=== PATIENT | male | born 1955 | race Caucasian/White ===

== ENCOUNTER → 2017-10-09 10:36 | Outpatient (CLI) | payer OTHER, SELFPAY ==
[2017-10-09 11:37] LABS: AST(SGOT) 19 U/L (15-37); Alanine Aminotransfer ALT/SGPT 24 U/L (16-61); Albumin, Serum 3.6 g/dL (3.2-5.0); Alkaline Phosphatase 73 U/L (45-117); Bilirubin, Direct 0.14 mg/dL (0.00-0.30); Cholesterol 160 mg/dL (200); Globulin 3.5 g/dL (2.2-4.2); High Density Lipoprotein 61 mg/dL; Protein, Total 7.1 g/dL (6.4-8.2); Triglycerides 55 mg/dL; Very Low Density Lipoprotein 11 mg/dL (5-40)
== END ==
PROVIDERS: Family Provider Family Medicine; PCP Family Medicine; Visit Provider Physician Assistant Medical
DX: E78.5 Hyperlipidemia, unspecified (principal); Z79.899 Other long term (current) drug therapy
CPT/HCPCS: 36415; 80061; 80076

== ENCOUNTER → 2018-04-19 08:09 | Outpatient (CLI) | payer OTHER, SELFPAY ==
[2018-04-19 09:30] LABS: AST(SGOT) 12 U/L (15-37); Alanine Aminotransfer ALT/SGPT 23 U/L (16-61); Albumin, Serum 3.3 g/dL (3.2-5.0); Alkaline Phosphatase 67 U/L (45-117); Bilirubin, Direct 0.22 mg/dL (0.00-0.30); Cholesterol 156 mg/dL (200); Globulin 3.7 g/dL (2.2-4.2); High Density Lipoprotein 57 mg/dL; Triglycerides 71 mg/dL; Very Low Density Lipoprotein 14 mg/dL (5-40)
== END ==
PROVIDERS: Family Provider Family Medicine; PCP Family Medicine; Referring Provider Physician Assistant Medical; Visit Provider Physician Assistant Medical
DX: E78.5 Hyperlipidemia, unspecified (principal)
CPT/HCPCS: 36415; 80061; 80076

== ENCOUNTER → 2018-06-20 11:33 | Outpatient (CLI) | payer OTHER, SELFPAY ==
[2018-06-07 13:05] VITALS: BMI 44.6
--- NOTE | 2018-06-20 11:35 | STEWCON_ITS ---
Reason For Study: CAD Stress Results Protocol: Mazin Protocol Maximum Predicted HR: 158 bpm Target HR: 134 bpm % Maximum Predicted HR: 95 % DurationHeart Rate Stage (mm:ss) (bpm) BP Comment Baseline 71 118/70No Chest Pain; Definity 0.4 ML Given Mazin Protocol Stage I 3:00 131 132/74No Chest Pain; Mild Dyspnea Mazin Protocol Stage II 1:01 150 / No Chest Pain; Moderate Dyspnea Recovery 77 128/76No Chest Pain Stress Duration: 4:01 mm:ss Maximum Stress HR: 150 bpm METS: 7 Baseline Echocardiogram Findings The estimated ejection fraction is 65 %. Stress Echo Wall motion Data Resting WM Intermediate WM Stress WM Resting Wall Motion Wall Motion Stress No regional wall motion No regional wall motion abnormalities noted. abnormalities noted. EKG Data Normal intervals are noted. The patient exercised according to the regular Mazin protocol for a total duration of 4:01. The maximum heart rate attained was 193 beats per minute. This was 122% of maximum predicted heart rate. The patient exercised into stage 2 of the Mazin protocol. During stress, there were no ST or T wave changes noted to suggest ischemia. No clinical angina was noted. Interpretation Summary The study was technically difficult. Contrast injection was performed. The estimated ejection fraction is 65 %. Normal, adequate treadmill echocardiogram. Negative for ischemia by EKG and echocardiographic criteria. No anginal symptoms noted. Frequent PVCs and ventricular couplets during exercise and into recovery. Below average exercise capacity for age. Test terminated due to dyspnea. Decreased sensitivity due to poor echo windows requiring Definity enhancing agent. Final LVEF of 75%. No complications. Ordering Physician: Behzad Herman Referring Physician: Behzad Herman Performed By: Radha Jones, FREDO, RVT
--- OUTSIDE RECORDS SUMMARY | 2018-08-06 15:01 | XMS RPT_ITS ---
:1955 Author Organization OHIP Support Name Relationship Address Phone MARCIA LE Unavailable Unavailable + [place] [address] ANNA PADGETT Unavailable [address] + [place] [address] R Unavailable Unavailable Unavailable MARCIA LE Unavailable Unavailable + [facility] [address] ANNA PADGETT Unavailable [address] + [place] [address] UE Unavailable Unavailable Unavailable MARCIA LE Unavailable Unavailable + [place] [address] ANNA PADGETT Unavailable [address] + [place] [address] UE Unavailable Unavailable Unavailable MARCIA LE Unavailable . + [place] [address] ANNA PADGETT Unavailable [address] + [place] [address] R Unavailable Unavailable Unavailable MARCIA LE Unavailable Unavailable + [place] [address] ANNA PADGETT Unavailable [address] + [place] [address] R Unavailable Unavailable Unavailable ANNA PADGETT Unavailable [address] + [place] [address] R Unavailable Unavailable Unavailable ANNA PADGETT Unavailable [address] + [place] [address] R Unavailable Unavailable Unavailable ANNA PADGETT Unavailable [address] + [place] [address] R Unavailable Unavailable Unavailable ANNA PADGETT Unavailable [address] + [place] [address] R Unavailable Unavailable Unavailable Care Team Providers Name Role Phone Behzad Herman Attending Unavailable Behzad Herman Referring Unavailable Behzad Herman Attending Unavailable Behzad Herman Referring Unavailable Octavio, Jay Primary Care Unavailable Melissa Up Attending Unavailable Melissa Up Referring Unavailable Octavio, Jay Primary Care Unavailable Luan Marrero Attending Unavailable Renetta Borges Attending Unavailable Behzad Herman Attending Unavailable [place], Jay Referring Unavailable Octavio, Jay Primary Care Unavailable Melissa Up Attending Unavailable Melissa Up Referring Unavailable Octavio, Jay Primary Care Unavailable Behzad Herman Attending Unavailable [place], Jay Referring Unavailable Behzad Herman Attending Unavailable Behzad Herman Referring Unavailable [place], Jay Primary Care Unavailable PROBLEMS PROBLEMS DATE TYPE CONDITION / CODE ATTENDING STATUS SOURCE 06/20/2018 Unknown E78.5 - Behzad Herman Active [place] Hyperlipidemia, Community unspecified / Hospital E78.5(ICD-10) Repository 06/20/2018 Unknown I49.3 - Ventricular Behzad Herman Active [place] premature Community depolarization / Hospital I49.3(ICD-10) Repository 06/07/2018 Unknown I25.10 - Behzad Herman Active [place] Atherosclerotic heart [facility] disease [facility] coronary artery Repository without angina pectoris / I25.10(ICD-10) 10/09/2017 Unknown Z79.899 - Other long Suni Up term (current) drug Melissa [facility] therapy [facility] Z79.899(ICD-10) Repository PROCEDURES PROCEDURES No Procedure Records FoundRESULTS RESULTS LIVER PROFILE Collected: 07/24/2018 Status: F Source: [place] 8:42 AM [facility] REPOSITORY TYPE CODE TESTS RESULT OUT OF RANGE REFERENCE UNITS LAB L501.1500 6.4-8.2 g/dL Normal T PROT 7.3 LAB L501.1800 3.2-5.0 g/dL Normal ALB 3.7 LAB L501.1950 2.2-4.2 g/dL Normal GLOB 3.6 LAB L501.4100 15-37 U/L Normal AST 16 LAB L501.4305 45-117 U/L Normal ALK P 67 LAB L501.4405 16-61 U/L Normal ALT 28 LAB L501.4600 0.20-1.00 mg/dL High T BILI 1.10 LAB L501.4700 0.00-0.30 mg/dL Normal D BILI 0.29 Performed By: #### L500.3400, L500.4100 #### [facility] [address], [address] LIPID PROFILE Collected: 07/24/2018 Status: F Source: [place] 8:42 AM [facility] REPOSITORY TYPE CODE TESTS RESULT OUT OF RANGE REFERENCE UNITS LAB L501.4900 200 mg/dL Normal CHOL 134 Result Comment: <200 mg/dL Desirable 200-240 mg/dL Borderline >240 mg/dL High Risk LAB L501.5000 mg/dL Normal TRIG 73 Result Comment: The drugs N-Acetylcysteine and Metamizole may falsely depress this assay. Serum Triglycerides Reference Interval Normal <150 mg/dL Borderline high 150 - 199 mg/dL High 200 - 499 mg/dL Very High > or = 500 mg/dL LAB L501.6400 mg/dL Normal HDL 55 Result Comment: The drugs N-Acetylcysteine and Metamizole may falsely depress this assay. Reference Range HDL <40 mg/dL Low HDL Cholesterol HDL >or= 60 mg/dL High HDL Cholesterol LAB L501.6500 0-130 mg/dL Normal LDL 64 LAB L501.6600 5-40 mg/dL Normal VLDL 15 Performed By: #### L500.3400, L500.4100 #### [facility] [address] [place], [place], [address] STRESS TEST ECHO W/ Observed: 06/20/2018 Status: F Source: [place] CONTRAST 1:56 PM [facility] REPOSITORY [facility] Cardiovascular Services [address] [place] [id number] Stress Test Echo W/Contrast MR#: [id number] Acct: [id number] Name: KRYSTYNA PADGETT Rep #: [id number] : 1955 63 From: Behzad Herman MD Primary Care: Jay Cunningham DO Status: REG CLI Ordering Dr: Behzad Herman MD Sex: M C Reason For Study: CAD Stress Results Protocol: Mazin Protocol Maximum Predicted HR: 158 bpm Target HR: 134 bpm % Maximum Predicted HR: 95 % DurationHeart Rate Stage (mm:ss) (bpm) BP Comment Baseline 71 118/70No Chest Pain; Definity 0.4 ML Given Mazin Protocol Stage I 3:00 131 132/74No Chest Pain; Mild Dyspnea Mazin Protocol Stage II 1:01 150 / No Chest Pain; Moderate Dyspnea Recovery 77 128/76No Chest Pain Stress Duration: 4:01 mm:ss Maximum Stress HR: 150 bpm METS: 7 Baseline Echocardiogram Findings The estimated ejection fraction is 65 %. Stress Echo Wall motion Data Resting WM Intermediate WM Stress WM Resting Wall Motion Wall Motion Stress No regional wall motion No regional wall motion abnormalities noted. abnormalities noted. EKG Data Normal intervals are noted. The patient exercised according to the regular Mazin protocol for a total duration of 4:01. The maximum heart rate attained was 193 beats per minute. This was 122% of maximum predicted heart rate. The patient exercised into stage 2 of the Mazin protocol. During stress, there were no ST or T wave changes noted to suggest ischemia. No clinical angina was noted. Interpretation Summary The study was technically difficult. Contrast injection was performed. The estimated ejection fraction is 65 %. Normal, adequate treadmill echocardiogram. Negative for ischemia by EKG and echocardiographic criteria. No anginal symptoms noted. Frequent PVCs and ventricular couplets during exercise and into recovery. Below average exercise capacity for age. Test terminated due to dyspnea. Decreased sensitivity due to poor echo windows requiring Definity enhancing agent. Final LVEF of 75%. No complications. Ordering Physician: Behzad Herman Referring Physician: Behzad Herman Performed By: Radha Jones, FREDO, RVT 06/20/18 1356 Date Behzad Herman MD CC: Jay Cunningham DO; Behzad Herman MD Date Dictated: 06/20/18 1153 Date Transcribed: 06/20/18 1356 Proposal Lead Writer: Signed CARDIOLOGY VISIT Observed: 06/07/2018 Status: F Source: [place] REPORT 1:21 PM [facility] REPOSITORY [facility] [address] [place] [address] OFFICE VISIT Date of Service: 06/07/18 MR#: [id number] Acct: [id number] Name: KRYSTYNA PADGETT Rep #: [id number] : 1955 Provider: Behzad Herman MD Age/Sex: 62/M [place] [facility] [place] Status: Signed HPI HPI Chief Complaint: Routine f/u Details: Referring physician: Dr. Cunningham Mr. Padgett is a very pleasant 62-year-old nondiabetic morbidly obese gentleman, who used to weigh 340 pounds, lost about 80 pounds in the last year and a half, who has a history of hypertension, unknown cholesterol, no previous cardiac history. Prior to our last visit he stated that over the last couple of months he has had increasing fatigue, bradycardia, and positional lightheadedness and dizziness. He sought medical attention at [facility] on 09/23/15. EKG at that time demonstrated sinus bradycardia with PVCs. TSH and troponins were negative, and his clonidine was discontinued. Initially felt better after a few days off clonidine, could not tolerate Imdur in its place due to headaches, but then had reversion back to fatigue and lightheadedness. On further history patient had never had a stress test, previous catheterization, myocardial infarction, denies tobacco use, alcohol use, pkeg-dyr-twleiqy or herbal medications, or illicit drugs. He denies any exertional angina, chest pain or shortness of breath, denies any lower extremity edema. He's been on amlodipine and spironolactone for the better part of 2 years. He was switched to spironolactone after a reaction to lisinopril. Patient underwent a stress echocardiogram in 11/04/15 Which was technically difficult, had several PVCs and 4 beats of nonsustained V. tach, and had very poor exercise capacity. This gave way to a diagnostic coronary angiogram performed on 11/18/15. This demonstrated mild coronary artery disease and a statin was added. patient was advised to discontinue caffeinated products given his palpitations. Since our last visit with each other, the patient has discontinued all caffeinated products and feels much better. He denies any palpitations whatsoever since discontinuing caffeine. He denies any chest pain, angina. He is taking and tolerating his medicines well. He denies any myalgias with his new Zocor. patient does report that he has several episodes of nodding off sleeping during the day, is unaware whether he snores as he sleeps by himself, but does not wake up well rested. He has never been tested for MARIELENA. Unfortunately his insurance company would not pay for a sleep study. Patient declines a home O2 assessment at this time. Since her last visit the patient is doing fairly well and denies any chest pain, angina, shortness of breath, palpitations, or dyspnea on exertion. He has never gotten his sleep study. 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 He is compliant with his medications. He has completely discontinued all decaffeinated products. Is taking and tolerating his medicines well. In our office today's blood pressure is 115/80, pulse is 68 and regular. His physical exam is as below. Lipids as of 10/22/15 showed HDL of 58 and LDL 111. Repeat lipid profile As of 10/05/16 showed LDL of 75 and HDL of 61. His lipids as of 04/07/17 showed LDL of 71 and HDL of 64. His lipids as of 10/09/17 show an LDL of 88, and an HDL of 61 TSH was 0.79. His lipids as of 04/19/18 show an LDL of 85 and HDL of 57. Repeat lipids are pending. Intake Vital Signs06/07/18 Height 5 ft 7 in 06/07/18 Weight: 285 lb 06/07/18 Body Mass Index (BMI) 44.6 06/07/18 Blood Pressure 115/80 Intake Visit Reasons: 6 M FU [employer] Professor Required: No Is patient in pain?: No Allergies VICKIE Inhibitors Allergy (Severe, Verified 06/06/18 16:32) Angioedema Beta-Blockers (Beta-Adrenergic Bloc Allergy (Intermediate, Verified 06/06/18 16:32) HEART RATE DROPS VERY LOW clonidine Allergy (Verified 06/06/18 16:32) Other lisinopril Allergy (Verified 06/06/18 16:32) Angioedema Medications Amlodipine [Norvasc] 5 mg PO DAILY 09/23/15 [History Confirmed 06/06/18] Spironolact/Hydrochlorothiazid [Aldactazide 25-25 Tablet] 1 tab PO DAILY 09/23/15 [History Confirmed 06/06/18] Aspirin [Adult Low Dose Aspirin EC] 81 mg PO DAILY 11/18/15 [History Confirmed 06/06/18] simvastatin 40 mg tablet 40 mg PO QHS #90 tab 06/07/18 [Rx Confirmed 06/07/18] [facility] Medical History Obesity (Chronic) HLD (hyperlipidemia) (Chronic) PVCs (premature ventricular contractions) (Chronic) Atherosclerotic heart disease of [place] coronary artery without angina pectoris (Chronic) Sinus bradycardia (Chronic) Hypertension (Chronic) Bilateral kidney stones (Chronic) Hydronephrosis (Chronic) Surgical History History of arthroscopy of left knee (Chronic) History of back surgery (Chronic) History of left heart catheterization (Chronic 11/18/15) History of left knee surgery (Chronic) History of repair of left rotator cuff (Chronic) History of shoulder surgery (Chronic) Hx of hernia repair (Chronic) Family History Mother CAD (coronary artery disease) CHF, stent CHF (congestive heart failure) Father Valvular disease CHF (congestive heart failure) Social History Smoking Status: Never smoker alcohol intake: current ROS Const Const: Positive for other (Feels well); negative for fatigue, weakness, body ache, fever(s), headache(s), chills, frequent falls, night sweats, daytime sleepiness, difficulty sleeping, excessive sweating, weight gain, weight loss, increased appetite, poor appetite or anorexia Eyes Eyes: Negative for blind spots, loss of peripheral vision, transient loss of vision, blurry vision, change in vision, double vision, floaters, tunnel vision or other ENT ENT: Negative for headache(s), dizziness, hearing loss, tinnitus, Nosebleed/epistaxis, balance problems, post nasal drip, lip swelling, tongue swelling, bleeding gums, hoarseness, neck pain, dry mouth or other Cardio Chest Pain: No Palpitations: No Edema: Bilateral (Chronic lower leg edema) Muscle aches with walking: None Resp Respiratory: Negative for SOB with activity, SOB at rest, SOB orthopnea\SOB lying down, Cough, Coughing up blood/hemoptysis, chest congestion, pain on inspiration, snoring, stridor, wheezing, crackles, paroxysmal nocturnal dyspnea or other GI GI: Negative nausea, vomiting, heartburn, constipation, belching, bloating, cramping, vomiting blood/hematemesis, bright, red blood in stools, black,tarry stools, loose stools, Difficulty Swallowing or other : Negative for hematuria, frequent nighttime urination/ nocturia, erectile dysfunction or abnormal vaginal bleeding Musc Musc: Negative for balance problems, muscle aches/ myalgia, muscle weakness or joint pain Skin Skin: Negative redness, non-healing lesions, rash, unusual bruising, skin ulcer, wounds, jaundice or other Neuro Neuro: Negative for weakness, headache(s), frequent falls, blurry vision, double vision, dizziness, lightheadedness, near syncope, syncope, orthostatic symptoms, confusion, memory loss, restless legs, vertigo, seizures, lack of coordination or other Félix Hematologic/Lymphatic: Negative for easy bleeding, easy bruising, enlarged lymph nodes or other Endo Endo: Negative for fatigue, excessive sweating, cold intolerance, heat intolerance, flushing, increased thirst/drinking, increased hunger, hair loss, hair growth or other Psych Psych: Negative for anxiety, depression, thoughts of harming anyone, thoughts of harming yourself, visual hallucinations, panic attacks or audible hallucinations Allergy Allergy/Immunology: Negative for lip swelling, Negative for tongue swelling, Negative for rash, Negative for throat swelling, Negative for hives Cardiology Exam Const Appearance: cooperative, healthy appearing and no acute distress Nutritional Appearance: well nourished Orientation: alert, oriented x3 and oriented to person Head Head: normal to inspection, atraumatic and normocephalic Nose: external nose normal Face and Sinus: face symmetric Mouth: oral mucosae normal Eyes General: appearance normal, both eyes and all related structures Eyelids: eyelids normal Conjunctivae: conjunctivae normal Pupils: PERRL and normal by confrontation EOM: EOM intact bilaterally Neck Neck: normal visual inspection and full ROM Carotids: normal carotid upstroke Chest Chest inspection: normal inspection of the chest Auscultation: Bilateral: Clear to Auscultation Cardio Palpation: normal PMI Rate: regular rate Rhythm: regular rhythm Heart sounds: S1 normal and S2 normal GI GI: normal to inspection, no hepatosplenomegaly and bowel sounds present Neuro General: alert, oriented x3, awake, CN's II-XI intact bilaterally and moves all extremities Skin Skin: no rashes or lesions noted Extremities Pulses: Normal: Right Femoral Pulse, Left Femoral Pulse, Right Dorsalis Pedis Pulse, Left Dorsalis Pedis Pulse, Right Posterior Tibial Pulse, Left Posterior Tibial Pulse, Right Radial Pulse, Left Radial Pulse Lower Extremity Edema: None: Bilateral Psych Psychological: normal affect Assessment AND Plan 1. 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 Coronary artery disease: No exertional anginal symptoms at this time. 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 He is asymptomatic from a cardiac standpoint. 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 In the meantime we will continue baby aspirin and spironolactone/hydrochlorothiazide as well as amlodipine. 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 If however his stress test is abnormal, he may require repeat catheterization. Orders Orders: 2. HLD (hyperlipidemia) E78.5 Plan 2. Hyperlipidemia: His LDL and HDL cholesterol not quite at goal given his previously diagnosed nonobstructive coronary disease in 2016. Recommend increasing his Zocor to 40 mg p.o. nightly, and repeating his lipid profile in 6-week. 3. Return office in 6 months. This note was generated using a voice recognition system and there may be incorrect words, spelling or punctuation that were not noted when reviewing the office note prior to saving. Orders Orders: Plan Detail Other Orders Orders: Other Medications New: Discontinued: Follow Up +6m (Virgil) Coding Level of Care Code Off vis,est,level 3 Diagnoses Atherosclerotic heart disease of [place] coronary artery without angina pectoris I25.10 HLD (hyperlipidemia) E78.5 Coding Level of Care Code Off vis,est,level 3 Diagnoses Atherosclerotic heart disease of [place] coronary artery without angina pectoris I25.10 HLD (hyperlipidemia) E78.5 06/07/18 1321 <Electronically signed by Behzad Herman MD> Date Behzad Herman MD Cosigner Signature: Date (if applicable) CC: Jay Cunningham DO LIVER PROFILE Collected: 04/19/2018 Status: F Source: [place] 8:15 AM [facility] REPOSITORY TYPE CODE TESTS RESULT OUT OF RANGE REFERENCE UNITS LAB L501.1500 6.4-8.2 g/dL Normal T PROT 7.0 LAB L501.1800 3.2-5.0 g/dL Normal ALB 3.3 LAB L501.1950 2.2-4.2 g/dL Normal GLOB 3.7 LAB L501.4100 15-37 U/L Low AST 12 LAB L501.4305 45-117 U/L Normal ALK P 67 LAB L501.4405 16-61 U/L Normal ALT 23 LAB L501.4600 0.20-1.00 mg/dL Normal T BILI 0.90 LAB L501.4700 0.00-0.30 mg/dL Normal D BILI 0.22 Performed By: #### L500.3400, L500.4100 #### [facility] [address] [place], [address] LIPID PROFILE Collected: 04/19/2018 Status: F Source: [place] 8:15 AM [facility] REPOSITORY TYPE CODE TESTS RESULT OUT OF RANGE REFERENCE UNITS LAB L501.4900 200 mg/dL Normal CHOL 156 Result Comment: <200 mg/dL Desirable 200-240 mg/dL Borderline >240 mg/dL High Risk LAB L501.5000 mg/dL Normal TRIG 71 Result Comment: The drugs N-Acetylcysteine and Metamizole may falsely depress this assay. Serum Triglycerides Reference Interval Normal <150 mg/dL Borderline high 150 - 199 mg/dL High 200 - 499 mg/dL Very High > or = 500 mg/dL LAB L501.6400 mg/dL Normal HDL 57 Result Comment: The drugs N-Acetylcysteine and Metamizole may falsely depress this assay. Reference Range HDL <40 mg/dL Low HDL Cholesterol HDL >or= 60 mg/dL High HDL Cholesterol LAB L501.6500 0-130 mg/dL Normal LDL 85 LAB L501.6600 5-40 mg/dL Normal VLDL 14 Performed By: #### L500.3400, L500.4100 #### [facility] [address] [place], [address] CARDIOLOGY VISIT Observed: 12/07/2017 Status: F Source: [place] REPORT 1:41 PM [facility] REPOSITORY [facility] [address] [place] [address] OFFICE VISIT Date of Service: 12/07/17 MR#: [id number] Acct: [id number] Name: KRYSTYNA PADGETT Rep #: [id number] : 1955 Provider: Behzad Herman MD Age/Sex: 62/M [place] [facility] [place] Status: Signed HPI HPI Chief Complaint: Routine f/u Details: Referring physician: Dr. Cunningham Mr. Padgett is a very pleasant 62-year-old nondiabetic morbidly obese gentleman, who used to weigh 340 pounds, lost about 80 pounds in the last year and a half, who has a history of hypertension, unknown cholesterol, no previous cardiac history. Prior to our last visit he stated that over the last couple of months he has had increasing fatigue, bradycardia, and positional lightheadedness and dizziness. He sought medical attention at [facility] on 09/23/15. EKG at that time demonstrated sinus bradycardia with PVCs. TSH and troponins were negative, and his clonidine was discontinued. Initially felt better after a few days off clonidine, could not tolerate Imdur in its place due to headaches, but then had reversion back to fatigue and lightheadedness. On further history patient had never had a stress test, previous catheterization, myocardial infarction, denies tobacco use, alcohol use, tdmx-mlx-nmxknaex or herbal medications, or illicit drugs. He denies any exertional angina, chest pain or shortness of breath, denies any lower extremity edema. He's been on amlodipine and spironolactone for the better part of 2 years. He was switched to spironolactone after a reaction to lisinopril. Patient underwent a stress echocardiogram in 11/04/15 Which was technically difficult, had several PVCs and 4 beats of nonsustained V. tach, and had very poor exercise capacity. This gave way to a diagnostic coronary angiogram performed on 11/18/15. This demonstrated mild coronary artery disease and a statin was added. patient was advised to discontinue caffeinated products given his palpitations. Since our last visit with each other, the patient has discontinued all caffeinated products and feels much better. He denies any palpitations whatsoever since discontinuing caffeine. He denies anychest pain, angina. . He is taking and tolerating his medicines well. He denies any myalgias with his new Zocor. patient does report that he has several episodes of nodding off sleeping during the day, is unaware whether he snores as he sleeps by himself, but does not wake up well rested. He has never been tested for AMRIELENA. Unfortunately his insurance company would not pay for a sleep study. Patient declines a home O2 assessment at this time. Since her last visit he underwent meniscus surgery without difficulty. He has completely discontinued all decaffeinated products. Is taking and tolerating his medicines well. In our office today's blood pressure is 126/82, pulse is 64 and regular. His physical exam is as below. Lipids as of 10/22/15 showed HDL of 58 and LDL 111. Repeat lipid profile As of 10/05/16 showed LDL of 75 and HDL of 61. His lipids as of 04/07/17 showed LDL of 71 and HDL of 64. His lipids as of 10/09/17 show an LDL of 88, and an HDL of 61 TSH was 0.79. Intake Vital Signs12/07/17 Height 5 ft 7 in 12/07/17 Weight: 278 lb 12/07/17 Body Mass Index (BMI) 43.5 12/07/17 Blood Pressure 112/68 12/07/17 Respiratory Rate 18 12/07/17 Pulse Rate 66 Intake Visit Reasons: 6 M FU Allergies VICKIE Inhibitors Allergy (Severe, Verified 12/07/17 13:19) Angioedema Beta-Blockers (Beta-Adrenergic Bloc Allergy (Intermediate, Verified 12/07/17 13:19) HEART RATE DROPS VERY LOW clonidine Allergy (Verified 12/07/17 13:19) Other lisinopril Allergy (Verified 12/07/17 13:19) Angioedema Medications Amlodipine [Norvasc] 5 mg PO DAILY 09/23/15 [History Confirmed 12/07/17] Spironolact/Hydrochlorothiazid [Aldactazide 25-25 Tablet] 1 tab PO DAILY 09/23/15 [History Confirmed 12/07/17] Aspirin [Adult Low Dose Aspirin EC] 81 mg PO DAILY 11/18/15 [History Confirmed 12/07/17] simvastatin 20 mg tablet 20 mg PO DAILY #90 tab 12/07/17 [Rx Confirmed 12/07/17] [facility] Medical History Obesity (Chronic) HLD (hyperlipidemia) (Chronic) PVCs (premature ventricular contractions) (Chronic) Atherosclerotic heart disease of [place] coronary artery without angina pectoris (Chronic) Sinus bradycardia (Chronic) Hypertension (Chronic) Bilateral kidney stones (Chronic) History of left knee surgery (Chronic) Hydronephrosis (Chronic) Surgical History History of arthroscopy of left knee (Chronic) History of back surgery (Chronic) History of left heart catheterization (Chronic 11/18/15) History of repair of left rotator cuff (Chronic) History of shoulder surgery (Chronic) Hx of hernia repair (Chronic) Family History Mother CAD (coronary artery disease) CHF, stent CHF (congestive heart failure) Father Valvular disease CHF (congestive heart failure) Social History Smoking Status: Never smoker alcohol intake: current ROS Const Const: Negative for fatigue, weakness, difficulty sleeping, frequent falls, headache(s) or excessive sweating Eyes Eyes: Negative for loss of peripheral vision, transient loss of vision, blurry vision or double vision ENT ENT: Negative for headache(s), dizziness, Nosebleed/epistaxis or balance problems Cardio Chest Pain: No Palpitations: Yes (Monthly) feels like its: skipping, thumping Edema: None Muscle aches with walking: None Resp Respiratory: Negative for SOB with activity, SOB at rest, SOB orthopnea\SOB lying down or paroxysmal nocturnal dyspnea GI GI: Negative nausea or heartburn : Negative for hematuria Musc Musc: Negative for muscle aches/ myalgia, muscle weakness, joint pain or balance problems Skin Skin: Negative non-healing lesions, unusual bruising or rash Neuro Neuro: Negative for weakness, frequent falls, blurry vision, headache(s), dizziness, lightheadedness, orthostatic symptoms or double vision Félix Hematologic/Lymphatic: Negative for easy bruising Endo Endo: Negative for fatigue, excessive sweating or increased thirst/drinking Psych Psych: Negative for anxiety or depression Allergy Allergy/Immunology: Negative for hives, Negative for rash Cardiology Exam Const Appearance: cooperative, healthy appearing and no acute distress Nutritional Appearance: well nourished Orientation: alert, oriented x3 and oriented to person Head Head: normal to inspection, atraumatic and normocephalic Nose: external nose normal Face and Sinus: face symmetric Mouth: oral mucosae normal Eyes General: appearance normal, both eyes and all related structures Eyelids: eyelids normal Conjunctivae: conjunctivae normal Pupils: PERRL and normal by confrontation EOM: EOM intact bilaterally Neck Neck: normal visual inspection and full ROM Carotids: normal carotid upstroke Chest Chest inspection: normal inspection of the chest Auscultation: Bilateral: Clear to Auscultation Cardio Palpation: normal PMI Rate: regular rate Rhythm: regular rhythm Heart sounds: S1 normal and S2 normal GI GI: normal to inspection, no hepatosplenomegaly and bowel sounds present Neuro General: alert, oriented x3, awake, CN's II-XI intact bilaterally and moves all extremities Skin Skin: no rashes or lesions noted Extremities Pulses: Normal: Right Femoral Pulse, Left Femoral Pulse, Right Dorsalis Pedis Pulse, Left Dorsalis Pedis Pulse, Right Posterior Tibial Pulse, Left Posterior Tibial Pulse, Right Radial Pulse, Left Radial Pulse Lower Extremity Edema: None: Bilateral Psych Psychological: normal affect Assessment AND Plan 1. 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 Coronary artery disease: No exertional anginal symptoms at this time. No indication for any additional testing. The patient has had a rare occurrence of PVCs but nothing sustained. Recommend he continue his baby aspirin and amlodipine. His blood pressure is well-controlled. Continue spironolactone/hydrochlorothiazide. Patient declines sleep study at this time. 2. HLD (hyperlipidemia) E78.5 Plan 2. Hyperlipidemia: His LDL and HDL cholesterol are at goal for primary prevention. Continue Zocor. 3. Return office in 6 months. This note was generated using a voice recognition system and there may be incorrect words, spelling or punctuation that were not noted when reviewing the office note prior to saving. Plan Detail Other Medications New: Follow Up +6M ([place]) Coding Level of Care Code Off vis,est,level 3 Diagnoses Atherosclerotic heart disease of [place] coronary artery without angina pectoris I25.10 HLD (hyperlipidemia) E78.5 Coding Level of Care Code Off vis,est,level 3 Diagnoses Atherosclerotic heart disease of [place] coronary artery without angina pectoris I25.10 HLD (hyperlipidemia) E78.5 12/07/17 1341 <Electronically signed by Behzad Herman MD> Date Behzad Herman MD Cosigner Signature: Date (if applicable) CC: Jay Cunningham DO LIVER PROFILE Collected: 10/09/2017 Status: F Source: [place] 10:41 AM [facility] REPOSITORY Order Comment: Order Date: 04/13/17 Order Info: 0788-1 - *Hepatic Function Panel Order Info: [id number] - *Lipid Profile CC PCP Comments: 12 hours fasting, may have water. TYPE CODE TESTS RESULT OUT OF RANGE REFERENCE UNITS LAB L501.1500 6.4-8.2 g/dL Normal T PROT 7.1 LAB L501.1800 3.2-5.0 g/dL Normal ALB 3.6 LAB L501.1950 2.2-4.2 g/dL Normal GLOB 3.5 LAB L501.4100 15-37 U/L Normal AST 19 LAB L501.4305 45-117 U/L Normal ALK P 73 LAB L501.4405 16-61 U/L Normal ALT 24 Result Comment: Please note revised ALT reference range effective 2017. LAB L501.4600 0.20-1.00 mg/dL Normal T BILI 0.80 LAB L501.4700 0.00-0.30 mg/dL Normal D BILI 0.14 Performed By: #### L500.3400 #### [facility] [address] [place], [place], [address] LIPID PROFILE Collected: 10/09/2017 Status: F Source: [place] 10:41 AM [facility] REPOSITORY Order Comment: Order Date: 04/13/17 Order Info: [id number] - *Hepatic Function Panel Order Info: [id number] - *Lipid Profile CC PCP Comments: 12 hours fasting, may have water. TYPE CODE TESTS RESULT OUT OF RANGE REFERENCE UNITS LAB L501.4900 200 mg/dL Normal CHOL 160 Result Comment: <200 mg/dL Desirable 200-240 mg/dL Borderline >240 mg/dL High Risk LAB L501.5000 mg/dL Normal TRIG 55 Result Comment: The drugs N-Acetylcysteine and Metamizole may falsely depress this assay. Serum Triglycerides Reference Interval Normal <150 mg/dL Borderline high 150 - 199 mg/dL High 200 - 499 mg/dL Very High > or = 500 mg/dL LAB L501.6400 mg/dL Normal HDL 61 Result Comment: The drugs N-Acetylcysteine and Metamizole may falsely depress this assay. Reference Range HDL <40 mg/dL Low HDL Cholesterol HDL >or= 60 mg/dL High HDL Cholesterol LAB L501.6500 0-130 mg/dL Normal LDL 88 LAB L501.6600 5-40 mg/dL Normal VLDL 11 Performed By: #### L500.4100 #### [facility] [address] [place], [place], [address] ALLERGIES ALLERGIES DATE TYPE / CODE NAME / CODE REACTION SEVERITY SOURCE 06/06/2018 Drug VICKIE Angioedema SV [facility] Allergy/4160 Inhibitors/F Hospital 84269(SNOMED 639013544(RX Repository CT) NORM) 06/06/2018 Drug Beta-Ke HEART RATE DROPS MO [facility] Allergy/4160 s VERY LOW Hospital 70343(SNOMED (Beta-Adrene Repository CT) rgic Bloc/[id number] 298(RXNORM) 06/06/2018 Drug lisinopril/F Angioedema Unknown [facility] Allergy/4160 287665301( Hospital 40744(SNOMED NORM) Repository CT) 06/06/2018 Drug clonidine/F0 Other Unknown [place] [facility] Allergy/4160 46079856([facility] Hospital 98874(SNOMED ORM) Repository CT) ENCOUNTERS ENCOUNTERS ADMIT/DISCHARGE ACCOUNT ADMITTING ENCOUNTER LOCATION SOURCE NUMBER CLASS 07/24/2018 [id number] Ambulatory [place] 6 [facility] ing:LAB Repository 06/20/2018 [id number] Ambulatory BMSBuilding:W [place] 0 [facility] Repository 06/20/2018 [id number] Ambulatory [place] 6 [facility] ing:CVS Repository 06/07/2018/ [id number] Ambulatory BMSBuilding:B [place] 8 8 [facility] Repository 04/19/2018 [id number] Ambulatory [place] 7 [facility] ing:LAB Repository 12/07/2017/ [id number] Ambulatory BMSBuilding:B [place] 8 6 [facility] Repository 12/01/2017 [id number] Ambulatory BMSBuilding:B [place] 7 [facility] Repository 11/29/2017 [id number] Ambulatory BMSBuilding:B [place] 9 [facility] Repository 10/09/2017 [id number] Ambulatory [address] ing:LAB Repository PAYERS PAYERS ENCOUNTER GUARANTOR PAYER SUBSCRIBER SOURCE 07/24/2018 KRYSTYNA Mark [id number] Insurance:Jag [facility] [place] Number: [id number] [id number] Repository [address]Knr: 330) Date:7668-40-12EM [phone] () [id number] FRANKI [place]BR[place] [address]XN: 07/24/2018 Secondary NOT GIVENUNK [place] Insurance:SELF PAY [facility] Number: Effective Repository Date:2018-07-24 06/20/2018 KRYSTYNA Suarezoster [id number] Insurance:AETNAPolicy BISCHOFFDOB: Community ERA Number: [id number] [place] [id number] Repository [address]Cvl: (330) Date:7161-11-34XR [phone] ([place]) [place] [address]LC: 06/20/2018 Secondary NOT GIVENUNK [place] Insurance:SELF PAY [facility]: Effective Repository Date:2018-06-20 06/20/2018 KRYSTYNA Cooper Primary KRYSTYNA Mark [id number] Insurance:AETNAPolicy BISCHOFFDOB: [facility] ERA Number: [id number] [place] [id number] Repository [address]Rom: (330) Date:2005-31-84UP [phone] (HP) [id number] [address]BM: 06/20/2018 Secondary NOT GIVENUNK [place] Insurance:SELF PAY [facility] Number: Effective Repository Date:2018-06-07 06/07/2018 KRYSTYNA Cooper Primary KRYSTYNA Mark [id number] Insurance:AETNAPolicy BISCHOFFDOB: Community ERA Number: [id number] [place] [id number] Repository [address]Lii: (330) Date:0144-74-04NX [phone] (HP) 350[place]TS[place] [address]UV: 06/07/2018 Secondary NOT GIVENUNK [place] Insurance:SELF PAY [facility] Number: Effective Repository Date:2018-06-07 04/19/2018 KRYSTYNA Cooper Primary KRYSTYNA Mark [id number] Insurance:AETNAPolicy BISCHOFFDOB: Community [facility] Number: [id number] [place] [id number] Repository [address]Fwd: (330) Date:2068-00-00QA [phone] (HP) 680030RYFRANKI REYNOLDS [address]PP: 04/19/2018 Secondary NOT GIVENUNK [place] Insurance:SELF PAY [facility] Number: Effective Repository Date:2018-04-19 12/07/2017 KRYSTYNA L Primary KRYSTYNA Cooper [place] [id number] Insurance:AETNAPolicy BISCHOFFDOB: Community ERA Number: [id number] [place] [id number] Repository [address]Eks: (330) Date:6316-20-66HA [phone] (HP) [id number] [address]OQ: 12/07/2017 Secondary NOT GIVENUNK [place] Insurance:SELF PAY [facility] Number: Effective Repository Date:2017-06-21 12/01/2017 Krystyna L Primary Krystyna Cooper [place] [id number] Insurance:AETNAPolicy BischoffDOB: [facility] Number: [id number], [place] [id number] Repository [address]Kgm: (330) Date:6918-67-99PF [phone] () [id number] [address]CY: 12/01/2017 Secondary NOT GIVENUNK [place] Insurance:SELF PAY [facility] Number: Effective Repository Date:2017-12-01 11/29/2017 Krystyna L Primary Krystyna Cooper [place] [id number] Insurance:AETNAPolicy BischoffDOB: [facility] Era Number: [id number], [place] [id number] Repository [address]Wnb: (330) Date:6821-61-58LP [phone] () [id number] REYNOLDS [address]WX: 11/29/2017 Secondary NOT GIVENUNK [place] Insurance:SELF PAY [facility] Number: Effective Repository Date:2017-11-29 10/09/2017 Krystyna L Primary Krystyna Cooper [place] [id number] Insurance:Lenny ObrienB: [facility] Number: [id number], [place] [id number] Repository [address]Rsa: 330) Date:1871-94-35PJ [phone] () [id number] FRANKI MCBRIDE [address]OO: 10/09/2017 Secondary NOT GIVENUNK [place] Insurance:SELF PAY [facility] Number: Effective Repository Date:2017-10-09
== END ==
LOC: CVS 11:35
PROVIDERS: Family Provider Family Medicine; PCP Family Medicine; Referring Provider Internal Medicine Cardiovascular Disease; Visit Provider Internal Medicine Cardiovascular Disease
DX: I25.10 Atherosclerotic heart disease of native coronary artery without angina pectoris (principal)
CPT/HCPCS: 93017; 93350; J7120; Q9957; A4216; C8928

== ENCOUNTER → 2018-07-24 08:37 | Outpatient (CLI) | payer OTHER, SELFPAY ==
[2018-06-07 13:05] VITALS: BMI 44.6
[2018-07-24 10:18] LABS: AST(SGOT) 16 U/L (15-37); Alanine Aminotransfer ALT/SGPT 28 U/L (16-61); Albumin, Serum 3.7 g/dL (3.2-5.0); Alkaline Phosphatase 67 U/L (45-117); Bilirubin, Direct 0.29 mg/dL (0.00-0.30); Cholesterol 134 mg/dL (200); Globulin 3.6 g/dL (2.2-4.2); High Density Lipoprotein 55 mg/dL; Protein, Total 7.3 g/dL (6.4-8.2); Triglycerides 73 mg/dL; Very Low Density Lipoprotein 15 mg/dL (5-40)
== END ==
PROVIDERS: Family Provider Family Medicine; PCP Family Medicine; Referring Provider Internal Medicine Cardiovascular Disease; Visit Provider Internal Medicine Cardiovascular Disease
DX: E78.5 Hyperlipidemia, unspecified (principal); I25.10 Atherosclerotic heart disease of native coronary artery without angina pectoris
CPT/HCPCS: 36415; 80061; 80076

== ENCOUNTER 2018-12-21 11:11 | Emergency (ER) | payer OTHER, SELFPAY ==
[2018-12-04 13:02] VITALS: BMI 47.6
[2018-12-21 11:12] VITALS: BP 126/74; PULSE 64; RESP 18; TEMP 37; O2SAT 95; BMI 48.0
--- NOTE | 2018-12-21 11:26 | CT_ITS ---
STUDY: CT ABDOMEN AND PELVIS WITHOUT CONTRAST REASON FOR EXAM: Male, 63 years old. Right flank pain. Urinary bladder stone. RADIATION DOSAGE (If Supplied By Facility): CTDIvol = ( 17.58 ) mGy, DLP = ( 937.29 ) mGycm TECHNIQUE: Transaxial images were obtained from the dome of the diaphragm to the symphysis pubis without oral contrast, and without intravenous contrast. Sagittal and coronal images were reconstructed. Individualized dose optimization techniques were used for this CT. COMPARISON: February 22, 2017. FINDINGS: Lung bases: Elevated left hemidiaphragm. Dependent changes at the lung bases. Heart: Mild coronary artery disease. Liver: Hepatic steatosis. No focal hepatic lesions given noncontrast technique. Gallbladder/biliary ducts: Biliary sludge. No biliary ductal dilatation. No inflammatory changes. Pancreas: Moderate pancreatic atrophy. Spleen: Unremarkable. Adrenal glands: Unremarkable. Kidneys/ureters/bladder: 2 mm stone within the urinary bladder (axial image 166 series 1002). Mildly dilated right ureter with right perinephric and periureteral fat stranding. Nonobstructing right 3 mm renal stone (axial image 95 series 1002) within the right renal collecting system. Minimal left perinephric fat stranding. Normal left noncontrast renal parenchyma. Nondistended left ureter. Prostate: Unremarkable. Large bowel/small bowel: Colonic diverticulosis. No acute small bowel or large bowel process. Appendix: Unremarkable (axial image 113 series 1002). Gastroesophageal junction/stomach: Unremarkable. Retroperitoneum/lymph nodes: No intra-abdominal free air. No ascites. No pathologically enlarged lymph nodes. Vascular: Vascular calcifications. No aneurysm. Osseous structures: Calcific peritendinitis at the hamstring tendons. L5 bilateral pars defects with grade 2 spondylolisthesis. Congenitally small L5 vertebral body. Lumbar straightening. Neural foramina narrowing. Vomiting at L4-5 and L5-S1. No acute process. Subcutaneous/soft tissues: Fat and fluid containing right inguinal hernia without complication. Small fat-containing left inguinal hernia without complication. Paraspinal muscle atrophy, left greater than right. No acute process. CT/Abdomen/Pelvis without Cont IMPRESSION: 2 mm urinary bladder stone (suspected recently passed from the right) Mild right hydroureteronephrosis with right perinephric/perirenal fat stranding concerning for infection (correlate urinalysis) Nonobstructing right 3 mm renal collecting system stone Additional nonemergent findings, as above Electronically Signed: Dhaval Sue DO at 12:12 EDT Tel , Service support ,
[2018-12-21] MEDS: 0.9% Normal Saline 1,000 ML 125 ML IV (11:41)
[2018-12-21 11:42] LABS: Absolute Lymphocyte Count 0.67 X10^3/ul (0.83-4.51); Absolute Neutrophil Count 9.3 X10^3/uL (2.0-7.7); Basophil# 0.01 X10^3/uL; Basophil% 0.1 % (0-1); Eosinophil# 0.02 X10^3/uL; Eosinophils% 0.2 % (0-5); Hematocrit 42.1 % (40-54); Hemoglobin 14.1 g/dl (13.0-16.5); Lymphocyte # 0.67 X10^3/ul (4.0); Lymphocyte % 6.1 % (19-41); Mean Corp Hgb Conc 33.5 g/gl (32-36); Mean Corpuscular Hgb 29.4 pg (27.0-32.0); Mean Corpuscular Volume 87.9 fL (80-94); Mean Platelet Vol. 10.8 fl (6.2-12.0); Monocyte# 0.86 X10^3/uL; Monocyte% 7.9 % (0-10); Neutrophil # 9.31 X10^3/uL (2.7-7.7); Neutrophil % 85.4 % (47-70); Platelet Count 169 K/mm3 (150-450); RBC Distribution Width CV 13.2 % (11.6-14.6); RBC Distribution Width SD 42.5 fl (35.1-43.9); Red Blood Count 4.79 M/mm3 (4.6-6.2); White Blood Count 10.9 K/mm3 (4.4-11.0)
[2018-12-21 11:43] LABS: POSITIVE COUNT NO; POSITIVE DIFFERENTIAL NO; POSITIVE MORPHOLOGY NO
--- NOTE | 2018-12-21 11:51 | ED.VISSUMM ---
- ER Visit Summary Date of Service: 12/21/18 Chief Complaint: [Right flank pain] History of Present Illness: The patient is a 63 M presents the emergency department with flank pain that started around 3 PM yesterday. Patient states the pain, came on gradually but has severe episodes intermittently. Patient states around 8 PM last night pain became severe so he took a leftover Vicodin from prior kidney stones and then he vomited several times. Patient called the squad this morning to bring him in as he complained of severe pain. Currently rates the pain as a 2 out of 10 after receiving 100 mcg of fentanyl via EMS. She does have history of kidney stones and feels like he might be passing a stone. Patient states that he had a bus physical a week ago and it was noted that he had microscopic blood in his urine. He denies any dysuria. Denies urgency or frequency. Denies any fever.] Physical Examination: [HEENT-PERRLA, EOMI. Cranial nerves II through XII grossly intact. TMs clear. Mucous membranes moist. No adenopathy. Cardiovascular-regular rate and rhythm without murmur or ectopy Lungs-clear to auscultation, chest wall stable without crepitus or subcu emphysema Abdomen-normoactive bowel sounds, soft, nontender, no rebound or rigidity, no peritoneal signs. No pulsatile masses palpated. Back exam-patient has tenderness to palpation over the right costovertebral angle. No tenderness over the thoracic or lumbar spine itself. There is no erythema or warmth noted. Negative straight leg raises. Extremities-intact ?4, normal range of motion, normal pulses, atraumatic] Test Results: [CBC with differential obtained was normal. BMP obtained showed a sodium 138, potassium 3.4, chloride 105, CO2 30, glucose 102, BUN 27, creatinine 1.47. Urinalysis showed 15-20 RBCs but no signs of infection. CT flank showed a 2 mm stone within the bladder which suggest recently passed stone from the right as patient did have a mild right hydro-ureter. Patient also had some right-sided perinephric stranding and there was questioning of urinary tract infection however the urine was normal.] Emergency Department Course and Treatment: [Patient was started on normal saline while in the department having work-up performed. He continued to do well with the pain medicine he was given by EMS.] Treatment Plan: [Will be given urine strainers and a prescription for Zofran and [place]. Patient will be given referral to urology however he has an appointment already set up for January 07. Advised to return if worsening pain, fever, vomiting, or condition should worsen anyway.] Disposition: [Discharged home stable condition] Impression: [Recently passed kidney stone Right flank pain] This note was generated with [employer] dictation software. It may contain incorrect words, spelling, and punctuation that were not noted in review of the chart prior to signing ED Disposition - Plan for ED Patient: Referrals: Jay Cunningham DO [Primary Care Provider] -
[2018-12-21 11:57] LABS: Anion Gap 3 (5-15); BUN 27 mg/dL (7-18); BUN/Creat Ratio 18.4 RATIO (10-20); Calcium,Total 8.3 mg/dL (8.5-10.1); Chloride 105 mmol/L (98-107); Creatinine, Serum 1.47 mg/dL (0.70-1.30); EST Glomerular Filtration Rate 52 mL/min (>60); Est Glom Filt Rate - Afr Amer 62 mL/min (>60); Estimated Creatinine Clearance 47.02 ml/min; Glucose 102 mg/dL (74-106); Potassium 3.4 mmol/L (3.5-5.1); Sodium Level 138 mmol/L (136-145)
[2018-12-21 12:05] LABS: Bacteria 0 SEEN /hpf (None Seen); Mucous, Urine 0 SEEN /hpf (<or=2+); Squamous Epithelial Cells - UA 0 SEEN /hpf (0-5)
[2018-12-21 12:12] LABS: Color, Urine Yellow (Yellow); Glucose, Dipstick Normal (Normal); Ketone-Dipstick 15 mg/dl (Negative); Leukocyte Esterase-Dipstick 100 /ul (Negative); Nitrite-Dipstick Negative (Negative); Occult Blood-Urine 250 /ul (Negative); Protein-Dipstick Negative (Negative); Specific Gravity, Urine 1.015 (1.002-1.030); Urine Bilirubin Dipstick Negative (Negative); Urine Clarity Sl. Cloudy (Clear); Urine Urobilinogen Normal (Normal)
[2018-12-21 12:23] LABS: Red Blood Cells-Urine 10-25 SEEN /hpf (0-5); White Blood Cells 0-5 SEEN /hpf (0-5)
--- NOTE | 2018-12-21 12:32 | ED.DEP ---
ED Disposition - Plan for ED Patient: Instructions: ED Stone Renal Passed Prescriptions: Hydrocodone Bitart/Apap 5-325 [[place] 5MG-325MG] 1 tab PO Q4H PRN PRN 2 Days #10 tab PRN Reason: Pain Ondansetron [Zofran Odt] 4 mg PO Q8H PRN PRN #10 tab PRN Reason: Nausea Referrals: Gregory Osman MD [STAFF PHYSICIAN] - Jay Cunningham DO [Primary Care Provider] - 5-7 Days
[2018-12-21 12:35] VITALS: RESP 18
== END 2018-12-21 12:41 | disposition home or self-care (01) ==
LOC: ED 11:42
PROVIDERS: Emergency Provider Emergency Medicine; Family Provider Family Medicine; PCP Family Medicine
DX: N20.0 Calculus of kidney (principal); Z87.442 Personal history of urinary calculi; R31.9 Hematuria, unspecified; E78.00 Pure hypercholesterolemia, unspecified; I10 Essential (primary) hypertension
CPT/HCPCS: 74176; 80048; 81001; 85025; 99285; A4216

== ENCOUNTER 2018-12-23 14:44 | Emergency (ER) | payer OTHER, SELFPAY ==
[2018-12-23 14:45] VITALS: BP 125/62; PULSE 65; RESP 18; TEMP 36.7; O2SAT 92; BMI 48.0
--- NOTE | 2018-12-23 15:08 | ED.VISSUMM ---
- ER Visit Summary Date of Service: 12/23/18 Chief Complaint: Right flank pain History of Present Illness: The patient is a 63 M history of CAD, PR, hypertension and kidney stones. Patient has had 3 prior kidney stones he thinks he has a kidney stone now. Patient was seen in the emergency department on Monday was diagnosed with laying pain and they thought was a recently passed kidney stone. He did have a CT at that time and unremarkable labs. States he was doing well OxyContin grass yesterday. Today recurrent pain about 10 AM. Associated nausea. No vomiting. No diarrhea. No dysuria. No fever. Physical Examination: Vital signs are stable and afebrile. Initial blood pressure 125/62. Patient does not look septic or toxic. No distress. He was brought in by squad and treated with pain meds prior to to arrival. HEENT exam unremarkable. Lungs clear to auscultation bilaterally. Heart regular rhythm no murmur. Abdomen soft and nontender. Normal bowel sounds no peritoneal signs. Obese. Remedies moves all 4. Back nontender. Neurologically awake alert with no focal motor deficits. Test Results: CBC unremarkable white count 10. Chemistries normal normal creatinine of 1. UA positive for red blood cells but no other signs of infection. Consistent with an acute stone. Emergency Department Course and Treatment: Treated with IV fluids, Zofran and morphine. Patient had continued pain was given a second dose of morphine. Repeat exam is doing well at 1705 p.m. He is comfortable being discharged home. He denied discussed and he already has pain meds and nausea medications at home and did not need any other prescriptions. Treatment Plan: [place] for pain. Zofran for nausea. Strain urine for stone. Disposition: Discharge Impression: Right flank pain secondary to ureteral calculi History of kidney stones This note was generated with [employer] dictation software. It may contain incorrect words, spelling, and punctuation that were not noted in review of the chart prior to signing ED Disposition - Plan for ED Patient: Referrals: Jay Cunningham DO [Primary Care Provider] -
--- NOTE | 2018-12-23 15:14 | ED.DCSUM_ITS ---
- ER Visit Summary Date of Service: 12/23/18 Chief Complaint: Right flank pain History of Present Illness: The patient is a 63 M history of CAD, [place], hypertension and kidney stones. Patient has had 3 prior kidney stones he thinks he has a kidney stone now. Patient was seen in the emergency department on Fr iday was diagnosed with laying pain and they thought was a recently passed kidney stone. He did have a CT at that time and unremarkable labs. States he was doing well OxyContin grass yesterday. Today recurrent pain about 10 AM. Associated nausea. No vomiting. No diarrhea. No dysuria. No fever. Physical Examination: Vital signs are stable and afebrile. Initial blood p ressure 125/62. Patient does not look septic or toxic. No distress. He was brought in by squad and treated with pain meds prior to to arrival. HEENT exam unremarkable. Lungs clear to auscultation bilaterally. Heart regular rhythm no murmur. Abdomen soft and nontender. Normal bowel sounds no peritoneal signs. Obese. Remedies moves all 4. Back nontender. Neurologically awake alert with no focal motor deficits. Test Results: CBC unremarkable white count 10. Chemistries normal normal creatinine of 1. UA positive for red blood cells but no other signs of infectio n. Consistent with an acute stone. Emergency Department Course and Treatment: Treated with IV fluids, Zofran and morphine. Patient had continued pain was given a second dose of morphine. Repeat exam is doing well at 1705 p.m. He is comfortable being discharged home. He denied discussed and he already has pain meds and nausea medications at home and did not need any other prescriptions. Treatment Plan: [place] for pain. Zofran for nausea. Strain urine for stone. Disposition: Discharge Impression: Right flank pain secondary to ureteral calculi History of kidney stones This note was generated with [employer] dictation software. It may contain incorrect words, spelling, and punctuation that were not noted in review of the chart prior to signing ED Disposition - Plan for ED Patient: Referrals: Jay Cunningham DO [Primary Care Provider] -
[2018-12-23] MEDS: 0.9% Normal Saline 1,000 ML 1000 ML IV (15:15)
[2018-12-23] MEDS: Morphine 4 MG/ML Syringe 6 MG IV (15:15)
[2018-12-23] MEDS: Ondansetron 4 MG/2 ML Vial IV (15:15)
[2018-12-23 15:23] LABS: Absolute Lymphocyte Count 0.78 X10^3/ul (0.83-4.51); Absolute Neutrophil Count 9.3 X10^3/uL (2.0-7.7); Basophil# 0.01 X10^3/uL; Basophil% 0.1 % (0-1); Eosinophil# 0.06 X10^3/uL; Eosinophils% 0.6 % (0-5); Hematocrit 41.6 % (40-54); Hemoglobin 13.8 g/dl (13.0-16.5); Lymphocyte # 0.78 X10^3/ul (4.0); Lymphocyte % 7.2 % (19-41); Mean Corp Hgb Conc 33.2 g/gl (32-36); Mean Corpuscular Hgb 29.6 pg (27.0-32.0); Mean Corpuscular Volume 89.1 fL (80-94); Mean Platelet Vol. 11.3 fl (6.2-12.0); Monocyte# 0.63 X10^3/uL; Monocyte% 5.8 % (0-10); Neutrophil # 9.33 X10^3/uL (2.7-7.7); Neutrophil % 86.2 % (47-70); Platelet Count 187 K/mm3 (150-450); RBC Distribution Width CV 13.2 % (11.6-14.6); RBC Distribution Width SD 42.7 fl (35.1-43.9); Red Blood Count 4.67 M/mm3 (4.6-6.2); White Blood Count 10.8 K/mm3 (4.4-11.0)
[2018-12-23 15:24] LABS: POSITIVE COUNT NO; POSITIVE DIFFERENTIAL NO; POSITIVE MORPHOLOGY NO
[2018-12-23 15:25] LABS: Anion Gap 9 (5-15); BUN 23 mg/dL (7-18); BUN/Creat Ratio 21.7 RATIO (10-20); Calcium,Total 8.5 mg/dL (8.5-10.1); Chloride 104 mmol/L (98-107); Creatinine, Serum 1.06 mg/dL (0.70-1.30); EST Glomerular Filtration Rate 75 mL/min (>60); Est Glom Filt Rate - Afr Amer 91 mL/min (>60); Glucose 102 mg/dL (74-106); Potassium 3.6 mmol/L (3.5-5.1); Sodium Level 143 mmol/L (136-145)
[2018-12-23 16:23] LABS: Mucous, Urine 0 SEEN /hpf (<or=2+)
[2018-12-23 16:25] LABS: Color, Urine Amber (Yellow); Glucose, Dipstick Normal (Normal); Ketone-Dipstick 5 mg/dl (Negative); Leukocyte Esterase-Dipstick 25 /ul (Negative); Nitrite-Dipstick Negative (Negative); Occult Blood-Urine 250 /ul (Negative); Protein-Dipstick 30 mg/dl (Negative); Specific Gravity, Urine 1.025 (1.002-1.030); Urine Bilirubin Dipstick Negative (Negative); Urine Clarity Cloudy (Clear); Urine Urobilinogen 1 mg/dl (Normal)
[2018-12-23] MEDS: morphine 8 MG/ML Syringe 6 MG IV (16:48)
[2018-12-23 16:49] VITALS: BP 122/90; PULSE 72; RESP 15; O2SAT 98
[2018-12-23 16:49] LABS: Red Blood Cells-Urine 10-25 SEEN /hpf (0-5); Squamous Epithelial Cells - UA 0-5 SEEN /hpf (0-5); White Blood Cells 0-5 SEEN /hpf (0-5)
[2018-12-23 16:50] LABS: Amorphous Sediment 1+; Bacteria 1+ /hpf (None Seen)
--- NOTE | 2018-12-23 17:16 | ED.DEP ---
ED Disposition - Plan for ED Patient: Disposition: Home or Assisted Living Instructions: ED Stone Renal W [place] Referrals: Jay Cunningham DO [Primary Care Provider] - As Needed Additional Instructions: Plenty of fluids and rest. Strain your urine for passing stones. [place] for pain. Zofran for nausea. Follow-up with your doctor if not improving return to ER feeling worse.
[2018-12-23 17:22] VITALS: BP 135/96; PULSE 68; RESP 17; O2SAT 98
== END 2018-12-23 17:23 | disposition home or self-care (01) ==
PROVIDERS: Emergency Provider Emergency Medicine; Family Provider Family Medicine; PCP Family Medicine
DX: N20.1 Calculus of ureter (principal); I10 Essential (primary) hypertension; I25.10 Atherosclerotic heart disease of native coronary artery without angina pectoris; Z87.442 Personal history of urinary calculi; I25.2 Old myocardial infarction
CPT/HCPCS: 80048; 81001; 85025; 96361; 96374; 96375; 96376; 99285; J7030; A4216; J2405

== ENCOUNTER → 2019-05-28 09:14 | Outpatient (CLI) | payer OTHER, SELFPAY ==
[2019-05-28 10:53] LABS: PSA,Total- Diagnostic 0.95 ng/mL (0.0-4.0)
== END ==
PROVIDERS: Family Provider Family Medicine; PCP Family Medicine; Referring Provider Urology; Visit Provider Urology
DX: Z12.5 Encounter for screening for malignant neoplasm of prostate (principal)
CPT/HCPCS: 36415; 84153

== ENCOUNTER → 2019-07-01 07:50 | Outpatient (CLI) | payer OTHER, SELFPAY ==
[2019-06-27 13:59] VITALS: BMI 49.2
[2019-07-01 08:15] LABS: Hematocrit 45.6 % (40-54); Hemoglobin 14.9 g/dL (13.0-16.5); Mean Corp Hgb Conc 32.7 g/dL (32-36); Mean Corpuscular Hgb 29.5 pg (27.0-32.0); Mean Corpuscular Volume 90.3 fL (80-94); Mean Platelet Vol. 11.1 fl (6.2-12.0); Platelet Count 196 K/mm3 (150-450); RBC Distribution Width SD 42.6 fl (35.1-43.9); Red Blood Count 5.05 M/mm3 (4.6-6.2); White Blood Count 7.1 K/mm3 (4.4-11.0)
[2019-07-01 08:39] LABS: AST(SGOT) 17 U/L (15-37); Alanine Aminotransfer ALT/SGPT 24 U/L (16-61); Albumin, Serum 3.6 g/dL (3.2-5.0); Alkaline Phosphatase 68 U/L (45-117); Anion Gap 4 (5-15); BUN 20 mg/dL (7-18); BUN/Creat Ratio 21.2 RATIO (10-20); Bilirubin, Direct 0.21 mg/dL (0.00-0.30); Calcium,Total 9.1 mg/dL (8.5-10.1); Chloride 106 mmol/L (98-107); Cholesterol 165 mg/dL (200); Creatinine, Serum 0.94 mg/dL (0.70-1.30); EST Glomerular Filtration Rate 86 mL/min (>60); Est Glom Filt Rate - Afr Amer 104 mL/min (>60); Globulin 3.7 g/dL (2.2-4.2); Glucose 95 mg/dL (74-106); High Density Lipoprotein 68 mg/dL; Potassium 4.1 mmol/L (3.5-5.1); Protein, Total 7.3 g/dL (6.4-8.2); Sodium Level 143 mmol/L (136-145); Triglycerides 105 mg/dL; Very Low Density Lipoprotein 21 mg/dL (5-40)
== END ==
PROVIDERS: Family Provider Student in an Organized Health Care Education/Training Program; PCP Student in an Organized Health Care Education/Training Program; Referring Provider Internal Medicine Cardiovascular Disease; Visit Provider Internal Medicine Cardiovascular Disease
DX: I10 Essential (primary) hypertension (principal); E78.5 Hyperlipidemia, unspecified
CPT/HCPCS: 80053; 80061; 82248; 85027

== ENCOUNTER → 2019-07-17 12:24 | Outpatient (CLI) | payer OTHER, SELFPAY ==
[2019-06-27 13:59] VITALS: BMI 49.2
--- NOTE | 2019-07-17 12:26 | STEWCON_ITS ---
Stress Results Protocol: Dobutamine Stress Echo With Definity Maximum Predicted HR: 157 bpm Target HR: 133 bpm % Maximum Predicted HR: 85 % DurationHeart Rate Stage (mm:ss) (bpm) BP Dose Comment baseline 60 138/94 9ml total definity given stage 1 3:30 76 133/7810.00 stage 2 3:00 116 127/6720.00 stage 3 3:49 133 123/6830.00 recovery 93 135/63 Stress Duration: 10:19 mm:ss Maximum Stress HR: 133 bpm Baseline Echocardiogram Findings The estimated ejection fraction is 65 %. Stress Echo Wall motion Data Resting WM Intermediate WM Stress WM Resting Wall Motion Wall Motion Stress No regional wall motion No regional wall motion abnormalities noted. abnormalities noted. EKG Data The baseline ECG displays normal sinus rhythm. The patient was titrated from 10 mcg to a maximun of 30 mcg of dobutamine during the stress. The maximum heart rate attained was 148 beats per minute. This was 94% of maximum predicted heart rate. During dobutamine infusion, there were no ST or T wave changes noted to suggest ischemia. No clinical angina was noted. Interpretation Summary The estimated ejection fraction is 65 %. Normal, adequate, dobutamine echocardiogram. Negative for ischemia by EKG and echocardiographic criteria. No anginal symptoms noted. Rare PVCs noted. Appropriate blood pressure response to dobutamine. Test terminated due to the attainment of target heart rate. Final LVEF is 75%. Decrease sensitivity due to poor echo windows requiring Definity agent. The study was technically difficult. Contrast injection was performed. Ordering Physician: Behzad Herman Referring Physician: Behzad Herman Performed By: Radha Jones, FREDO, RVT
== END ==
PROVIDERS: Family Provider Student in an Organized Health Care Education/Training Program; PCP Student in an Organized Health Care Education/Training Program; Referring Provider Internal Medicine Cardiovascular Disease; Visit Provider Internal Medicine Cardiovascular Disease
DX: I10 Essential (primary) hypertension (principal); I25.10 Atherosclerotic heart disease of native coronary artery without angina pectoris; I49.3 Ventricular premature depolarization; E78.5 Hyperlipidemia, unspecified
CPT/HCPCS: 93017; 93350; J7040; Q9957; A4216; C8928

== ENCOUNTER → 2019-07-22 20:30 | Outpatient (CLI) | payer OTHER, SELFPAY ==
[2019-06-27 13:59] VITALS: BMI 49.2
== END ==
LOC: SL 20:30
PROVIDERS: Family Provider Student in an Organized Health Care Education/Training Program; PCP Student in an Organized Health Care Education/Training Program; Referring Provider Internal Medicine Cardiovascular Disease; Visit Provider Internal Medicine Cardiovascular Disease
DX: G47.10 Hypersomnia, unspecified (principal); E66.9 Obesity, unspecified; I49.3 Ventricular premature depolarization
CPT/HCPCS: 95810

== ENCOUNTER → 2019-08-28 20:31 | Outpatient (CLI) | payer OTHER, SELFPAY ==
[2019-08-06 09:40] VITALS: BMI 48.7
== END ==
LOC: SL 20:31
PROVIDERS: PCP Student in an Organized Health Care Education/Training Program; Visit Provider Nurse Practitioner Acute Care
DX: G47.33 Obstructive sleep apnea (adult) (pediatric) (principal)
CPT/HCPCS: 95811

== ENCOUNTER → 2019-10-29 11:46 | Outpatient (CLI) | payer OTHER, SELFPAY ==
[2019-08-06 09:40] VITALS: BMI 48.7
== END ==
PROVIDERS: PCP Student in an Organized Health Care Education/Training Program; Visit Provider Nurse Practitioner Acute Care
DX: Z46.89 Encounter for fitting and adjustment of other specified devices (principal)

== ENCOUNTER → 2019-10-30 09:09 | Outpatient (CLI) | payer OTHER, SELFPAY ==
[2019-08-06 09:40] VITALS: BMI 48.7
== END ==
PROVIDERS: PCP Student in an Organized Health Care Education/Training Program; Visit Provider Nurse Practitioner Acute Care
DX: Z46.89 Encounter for fitting and adjustment of other specified devices (principal)

== ENCOUNTER → 2020-01-07 07:42 | Outpatient (CLI) | payer OTHER, SELFPAY ==
[2019-12-03 08:02] VITALS: BMI 49.7
[2020-01-07 08:11] LABS: Hematocrit 42.4 % (40-54); Hemoglobin 13.4 g/dL (13.0-16.5); Mean Corp Hgb Conc 31.6 g/dL (32-36); Mean Corpuscular Hgb 28.5 pg (27.0-32.0); Mean Corpuscular Volume 90.2 fL (80-94); Mean Platelet Vol. 10.8 fl (6.2-12.0); Platelet Count 219 K/mm3 (150-450); RBC Distribution Width CV 12.8 % (11.6-14.6); RBC Distribution Width SD 42.1 fl (35.1-43.9); White Blood Count 6.8 K/mm3 (4.4-11.0)
[2020-01-07 08:39] LABS: ALB/GLOB Ratio 0.8 RATIO (0.9-2.4); AST(SGOT) 14 U/L (15-37); Alanine Aminotransfer ALT/SGPT 28 U/L (16-61); Albumin, Serum 3.3 g/dL (3.2-5.0); Alkaline Phosphatase 62 U/L (45-117); Anion Gap 5 (5-15); BUN 23 mg/dL (7-18); BUN/Creat Ratio 26.5 RATIO (10-20); Bilirubin, Direct 0.23 mg/dL (0.00-0.30); Calcium,Total 8.7 mg/dL (8.5-10.1); Chloride 101 mmol/L (98-107); Cholesterol 128 mg/dL (200); Creatinine, Serum 0.87 mg/dL (0.70-1.30); EST Glomerular Filtration Rate 94 mL/min (>60); Est Glom Filt Rate - Afr Amer 114 mL/min (>60); Globulin 3.9 g/dL (2.2-4.2); Glucose 93 mg/dL (74-106); High Density Lipoprotein 52 mg/dL; Potassium 3.7 mmol/L (3.5-5.1); Protein, Total 7.2 g/dL (6.4-8.2); Sodium Level 138 mmol/L (136-145); Triglycerides 54 mg/dL; Uric Acid 8.6 mg/dL (3.5-7.2); Very Low Density Lipoprotein 11 mg/dL (5-40)
== END ==
PROVIDERS: Nurse Practitioner Family; PCP Student in an Organized Health Care Education/Training Program; Referring Provider Student in an Organized Health Care Education/Training Program; Visit Provider Student in an Organized Health Care Education/Training Program
DX: I10 Essential (primary) hypertension (principal); E78.5 Hyperlipidemia, unspecified; M10.9 Gout, unspecified
CPT/HCPCS: 36415; 80053; 80061; 82248; 84550; 85027

== ENCOUNTER → 2020-05-15 09:33 | Outpatient (CLI) | payer OTHER, SELFPAY ==
[2019-12-03 08:02] VITALS: BMI 49.7
[2020-05-15 10:30] LABS: Hematocrit 42.6 % (40-54); Hemoglobin 13.6 g/dL (13.0-16.5); Mean Corp Hgb Conc 31.9 g/dL (32-36); Mean Corpuscular Hgb 28.7 pg (27.0-32.0); Mean Corpuscular Volume 89.9 fL (80-94); Mean Platelet Vol. 11.4 fl (6.2-12.0); Platelet Count 215 K/mm3 (150-450); RBC Distribution Width CV 13.5 % (11.6-14.6); RBC Distribution Width SD 44.1 fl (35.1-43.9); Red Blood Count 4.74 M/mm3 (4.6-6.2)
[2020-05-15 11:13] LABS: ALB/GLOB Ratio 0.9 RATIO (0.9-2.4); AST(SGOT) 15 U/L (15-37); Alanine Aminotransfer ALT/SGPT 23 U/L (16-61); Albumin, Serum 3.5 g/dL (3.2-5.0); Alkaline Phosphatase 73 U/L (45-117); Anion Gap 4 (5-15); BUN 21 mg/dL (7-18); BUN/Creat Ratio 24.1 RATIO (10-20); Calcium,Total 9.1 mg/dL (8.5-10.1); Chloride 105 mmol/L (98-107); Cholesterol 129 mg/dL (200); Creatinine, Serum 0.87 mg/dL (0.70-1.30); EST Glomerular Filtration Rate 94 mL/min (>60); Est Glom Filt Rate - Afr Amer 113 mL/min (>60); Globulin 3.9 g/dL (2.2-4.2); Glucose 87 mg/dL (74-106); High Density Lipoprotein 65 mg/dL; Lipase 66 U/L (73-393); Potassium 3.5 mmol/L (3.5-5.1); Protein, Total 7.4 g/dL (6.4-8.2); Sodium Level 140 mmol/L (136-145); Triglycerides 53 mg/dL; Uric Acid 6.4 mg/dL (3.5-7.2); Very Low Density Lipoprotein 11 mg/dL (5-40)
[2020-05-15 12:07] LABS: Hepatitis C Antibody Non-Reactive (Nonreactive)
== END ==
PROVIDERS: PCP Student in an Organized Health Care Education/Training Program; Referring Provider Student in an Organized Health Care Education/Training Program; Visit Provider Student in an Organized Health Care Education/Training Program
DX: M10.9 Gout, unspecified (principal); Z11.59 Encounter for screening for other viral diseases
CPT/HCPCS: 36415; 80053; 80061; 83690; 84550; 85027; 86803

== ENCOUNTER → 2020-12-09 08:19 | Outpatient (CLI) | payer OTHER, SELFPAY ==
[2020-05-20 10:15] VITALS: BMI 47.7
[2020-12-04 06:14] VITALS: BMI 48.2
[2020-12-09 08:43] LABS: Hematocrit 43.8 % (40-54); Hemoglobin 14.3 g/dL (13.0-16.5); Mean Corp Hgb Conc 32.6 g/dL (32-36); Mean Corpuscular Hgb 29.2 pg (27.0-32.0); Mean Corpuscular Volume 89.6 fL (80-94); Mean Platelet Vol. 10.3 fl (6.2-12.0); Platelet Count 233 K/mm3 (150-450); RBC Distribution Width CV 13.2 % (11.6-14.6); RBC Distribution Width SD 43.6 fl (35.1-43.9); Red Blood Count 4.89 M/mm3 (4.6-6.2); White Blood Count 5.8 K/mm3 (4.4-11.0)
[2020-12-09 09:12] LABS: ALB/GLOB Ratio 0.8 RATIO (0.9-2.4); AST(SGOT) 19 U/L (15-37); Alanine Aminotransfer ALT/SGPT 33 U/L (16-61); Albumin, Serum 3.3 g/dL (3.2-5.0); Alkaline Phosphatase 68 U/L (45-117); Anion Gap 4 (5-15); BUN 25 mg/dL (7-18); BUN/Creat Ratio 27.9 RATIO (10-20); Bilirubin, Direct 0.17 mg/dL (0.00-0.30); Chloride 104 mmol/L (98-107); Cholesterol 218 mg/dL (200); EST Glomerular Filtration Rate 91 mL/min (>60); Est Glom Filt Rate - Afr Amer 110 mL/min (>60); Globulin 3.9 g/dL (2.2-4.2); Glucose 95 mg/dL (74-106); High Density Lipoprotein 57 mg/dL; PSA,Total - Annual Screen 7.71 ng/mL (0.00-4.00); Potassium 3.8 mmol/L (3.5-5.1); Protein, Total 7.2 g/dL (6.4-8.2); Sodium Level 138 mmol/L (136-145); Triglycerides 82 mg/dL; Uric Acid 7.1 mg/dL (3.5-7.2); Very Low Density Lipoprotein 16 mg/dL (5-40)
[2020-12-09 09:12] LABS: Microalbumin,Random Urine 11.7 mg/L (NO RANGE EST.); Microalbumin:Creatinine Ratio 7.6 mg/g CRE (<30 mg/g CRE)
== END ==
PROVIDERS: Nurse Practitioner Family; PCP Student in an Organized Health Care Education/Training Program; Visit Provider Student in an Organized Health Care Education/Training Program
DX: I10 Essential (primary) hypertension (principal); Z12.5 Encounter for screening for malignant neoplasm of prostate; M10.9 Gout, unspecified
CPT/HCPCS: 36415; 80053; 80061; 82043; 82248; 82570; 84153; 84550; 85027; G0103

== ENCOUNTER → 2021-01-12 09:15 | Outpatient (CLI) | payer OTHER, SELFPAY ==
[2021-01-06 14:33] VITALS: BMI 48.3
[2021-01-12 12:08] LABS: PSA,Total- Diagnostic 1.63 ng/mL (0.0-4.0)
== END ==
PROVIDERS: PCP Student in an Organized Health Care Education/Training Program; Referring Provider Nurse Practitioner Adult Health; Visit Provider Nurse Practitioner Adult Health
DX: R97.20 Elevated prostate specific antigen [PSA] (principal)
CPT/HCPCS: 36415; 84153

== ENCOUNTER → 2021-01-26 06:03 | Outpatient (CLI) | payer OTHER, SELFPAY ==
[2021-01-06 14:33] VITALS: BMI 48.3
--- NOTE | 2021-01-26 07:43 | STRESSREP ---
Stress Test Report Date: 01-26-2021 Procedure: Exercise tolerance test/imaging study Indications: Shortness of breath/dyspnea on exertion; CAD; bradycardia; PVCs Consent: Per the patient Procedure: The patient exercised on a Mazin protocol for 4 minutes and 15 seconds completing Stage 1 and 1 minute and 15 seconds of Stage II achieving a peak heart rate of 134 bpm (85% predicted maximal heart rate) with a peak blood pressure 134/76 mmHg and a peak MET capacity of 6 METs. The baseline ECG demonstrated sinus bradycardia. The peak exercise ECG demonstrated no obvious ECG changes. There was a rare PVC and an isolated ventricular couplet during exercise. The functional capacity was considered decreased. There was no complaint of chest discomfort during exercise or recovery. The examination was discontinued secondary to dyspnea. Impression: 1. Technically adequate (percent predicted maximal heart rate greater than 85%) exercise tolerance test 2. Peak exercise ECG with no obvious ECG changes 3. There was a rare PVC and an isolated ventricular couplet during exercise 4. Nuclear images pending Myocardial perfusion imaging study: Technique: The patient was injected with 14.9 mCi of technetium 99m Cardiolite and subsequently rest SPECT Cardiolite nuclear imaging was obtained in the horizontal long, vertical long, and short axis views. The patient exercised on a Mazin protocol for 4 minutes and 15 seconds completing Stage 1 and 1 minute and 15 seconds of Stage II achieving a peak heart rate of 134 bpm (85% predicted maximal heart rate) with a peak blood pressure 134/76 mmHg and a peak MET capacity of 6 METs. The patient was injected with 44.8 mCi of technetium 99m Cardiolite and subsequently stress SPECT Cardiolite nuclear imaging was obtained in the horizontal long, vertical long, and short axis views. A gated Cardiolite study at peak stress was obtained. Interpretation: Rest and stress SPECT Cardiolite nuclear imaging status post realignment, normalization, and attenuation correction, demonstrates the appearance of body motion during image acquisition and at rest the appearance of an area of diminished tracer uptake near the distal lateral/lateral apical segments which appears to be improved and were normalized following stress. There is end systolic thickening and brightening. The gated Cardiolite study demonstrates myocardial thickening and inward wall motion. The reported LVEF is 63%. Impression: 1. Rest and stress SPECT Cardiolite nuclear imaging demonstrate the appearance of body motion during image acquisition and the appearance myocardial perfusion changes at rest which appear to be improved and/or normalize following stress compatible with body motion during image acquisition and shifting soft tissue attenuation/artifact with no myocardial perfusion changes considered diagnostic for associated stress-induced myocardial ischemia. 2. The gated Cardiolite study reports an LVEF of 63%. This note was generated with [employer] software. It may contain incorrect words, spelling, and punctuation that were not noted in checking the note before signing.
== END ==
PROVIDERS: PCP Student in an Organized Health Care Education/Training Program; Referring Provider Internal Medicine Cardiovascular Disease; Visit Provider Internal Medicine Cardiovascular Disease
DX: R06.00 Dyspnea, unspecified (principal); I25.10 Atherosclerotic heart disease of native coronary artery without angina pectoris; R00.1 Bradycardia, unspecified; E78.5 Hyperlipidemia, unspecified; I10 Essential (primary) hypertension
CPT/HCPCS: 78452; 93017; A9500; A4216; J2785

== ENCOUNTER → 2021-04-08 06:51 | Outpatient (CLI) | payer OTHER, SELFPAY ==
[2021-04-08 07:43] LABS: AST(SGOT) 17 U/L (15-37); Alanine Aminotransfer ALT/SGPT 29 U/L (16-61); Albumin, Serum 3.2 g/dL (3.2-5.0); Alkaline Phosphatase 67 U/L (45-117); Bilirubin, Direct 0.24 mg/dL (0.00-0.30); Cholesterol 157 mg/dL (200); Globulin 3.7 g/dL (2.2-4.2); High Density Lipoprotein 59 mg/dL; Protein, Total 6.9 g/dL (6.4-8.2); Triglycerides 70 mg/dL; Very Low Density Lipoprotein 14 mg/dL (5-40)
== END ==
PROVIDERS: PCP Student in an Organized Health Care Education/Training Program; Referring Provider Internal Medicine Cardiovascular Disease; Visit Provider Internal Medicine Cardiovascular Disease
DX: E78.00 Pure hypercholesterolemia, unspecified (principal)
CPT/HCPCS: 36415; 80061; 80076

== ENCOUNTER → 2021-06-16 07:20 | Outpatient (CLI) | payer MEDICARE, SELFPAY ==
[2021-06-16 08:52] LABS: Hemoglobin 14.6 g/dL (13.0-16.5); Mean Corp Hgb Conc 33.2 g/dL (32-36); Mean Corpuscular Hgb 29.1 pg (27.0-32.0); Mean Corpuscular Volume 87.8 fL (80-94); Platelet Count 232 K/mm3 (150-450); RBC Distribution Width CV 13.2 % (11.6-14.6); RBC Distribution Width SD 42.7 fl (35.1-43.9); Red Blood Count 5.01 M/mm3 (4.6-6.2); White Blood Count 6.5 K/mm3 (4.4-11.0)
[2021-06-16 09:19] LABS: ALB/GLOB Ratio 0.8 RATIO (0.9-2.4); AST(SGOT) 17 U/L (15-37); Alanine Aminotransfer ALT/SGPT 30 U/L (16-61); Albumin, Serum 3.3 g/dL (3.2-5.0); Alkaline Phosphatase 67 U/L (45-117); Anion Gap 8 (5-15); BUN 27 mg/dL (7-18); Bilirubin, Direct 0.17 mg/dL (0.00-0.30); Calcium,Total 9.1 mg/dL (8.5-10.1); Chloride 103 mmol/L (98-107); Creatinine, Serum 0.82 mg/dL (0.70-1.30); EST Glomerular Filtration Rate 101 mL/min (>60); Est Glom Filt Rate - Afr Amer 122 mL/min (>60); Globulin 3.9 g/dL (2.2-4.2); Glucose 89 mg/dL (74-106); Potassium 3.9 mmol/L (3.5-5.1); Protein, Total 7.2 g/dL (6.4-8.2); Sodium Level 140 mmol/L (136-145); Uric Acid 6.5 mg/dL (3.5-7.2)
== END ==
PROVIDERS: PCP Student in an Organized Health Care Education/Training Program; Referring Provider Student in an Organized Health Care Education/Training Program; Visit Provider Student in an Organized Health Care Education/Training Program
DX: M10.9 Gout, unspecified (principal)
CPT/HCPCS: 36415; 80053; 82248; 84550; 85027

== ENCOUNTER 2021-10-11 10:50 | Outpatient (CLI) | payer MEDICARE, SELFPAY ==
--- NOTE | 2021-10-11 10:53 | ART_ITS ---
Reason For Study: Pain in legs Procedure A bilateral lower extremity continuous wave Doppler with analog waveform analysis and ankle brachial indexes. Left Segmental Pressures Left brachial= 128mmHg. Left posterior tibial artery = 174mmHg. Left dorsalis pedis artery = 156mmHg. Left digit = 118 mmHg. The left dorsalis pedis waveforms are triphasic. The left posterior tibial artery waveforms are triphasic. Right Segmental Pressures Right brachial= 121mmHg. Right posterior tibial artery = 164mmHg. Right dorsalis pedis artery = 152mmHg. Right digit = 132 mmHg. The right dorsalis pedis waveforms are triphasic. The right posterior tibial artery waveforms are triphasic. Indices The right ankle brachial index by the dorsalis pedis is 1.19. The right ankle brachial index by the posterior tibial artery is 1.28. The right digital-brachial index is 1.03. The left ankle brachial index by the dorsalis pedis is 1.22. The left ankle brachial index by the posterior tibial artery is 1.36. The left digital-brachial index is 0.92. VL/Ankle Brachial Index Interpretation Summary Bilateral lower extremities no evidence of significant occlusive disease at res t with triphasic flow and an MEÑO 1.281.36. Ordering Physician: Melissa Up Referring Physician: Aly Cornejo Performed By: Rosi Kim RVT
== END 2021-10-11 23:59 | disposition home or self-care (01) ==
LOC: CVS 10:51
PROVIDERS: PCP Student in an Organized Health Care Education/Training Program; Referring Provider Physician Assistant Medical; Visit Provider Physician Assistant Medical
DX: R09.89 Other specified symptoms and signs involving the circulatory and respiratory systems (principal)
CPT/HCPCS: 93922

== ENCOUNTER 2021-11-24 11:00 | Outpatient (RCR) | payer MEDICARE, SELFPAY ==
--- NOTE | 2021-10-27 16:59 | HP.PTEVAL ---
Patient's Visit Information KRYSTYNA PADGETT is a 66 year old M referred to Physical Therapy by Dr. Aly Cornejo, with a diagnosis of LUMBAR DDD/CLAUDICATION. Date of Evaluation: 10/27/21 Physical Therapist: Krystyna Munoz, PT, Cert MDT, OCS - Visit Plan Frequency: 2x /Week Duration: 4 Weeks Plan: PT INTERVETIONS LUMBAR ROM -FLEXION ,POSTURAL EX'S ,DLS ,POSTURAL EX'S AND LE FEXABILITY - Subjective This 66 y/o male presents to physical therapy with leg pain. Patient has had leg pain since ~ end of Jun. Patient has h/o lumbar surgery with lumbar discectomy ~ 23 years ago. Eventually pain has been worsening with calf pain bilateral mainly during standing. Currently in left lateral hip . Patient had US to look at circulation which was negative for intermittent cloudification. Plan to do nerve conduction in December. Aggravating factors standing ~ 10mins . Alleviating factors movements ,walking and sitting . Patient had no diagnostics. Denies paresthesia/tingling. No back pain today Coughing/sneezing. Bowel/bladder-. Patient sleeping okay. Patient sleeps with sleep apnea. Patient has h/o RTC bilateral, left arthroscopic ,heart blockage .Patient pain affects QOL and function. 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 GAIT: reciprocal pattern lateral sway. MMT: quads/hams/hip/ankle 4/5. FLEXABLITY: hamstrings mod tight. SYMMETRIES: Align. PALAPTION: unremarkable. NEURO: denies paresthesia/tingling ,reflexes L3-4,L4-5,L5-S1 1/3 - Special Tests L/S Slump test left side: Negative L/S Slump test right side: Negative L/S Left Straight Leg Raise: Negative L/S Right Straight Leg Raise: Negative Lumbar Standing: Flexion - Mechanical Response: No effect Lumbar Standing: Flexion - Symptoms During Testing: No effect Lumbar Standing: Flexion - Symptoms After Testing: No effect Lumbar Standing: Extension - Mechanical Response: No effect Lumbar Standing: Extension - Symptoms During Testing: No effect Lumbar Standing: Extension - Symptoms After Testing: No effect Lumbar Standing: Right Side Glides - Mechanical Response: No effect Lumbar Standing: Right Side Bishop - Symptoms During Testing: No effect Lumbar Standing: Right Side Bishop - Symptoms After Testing: No effect Lumbar Standing: Left Side Bishop - Mechanical Response: No effect Lumbar Standing: Left Side Bishop - Symptoms During Testing: No effect Lumbar Standing: Left Side Bishop - Symptoms After Testing: No effect - Balance/Special Test Scores Oswestry Low Back Score: 21 - Goals Goal 1:: Patient to be I with HEP. Goal Time Frame: 4-6 Weeks Goal 2:: Patient demonstrate 50% improvement with improve function with standing with less Goal Time Frame: 4-6 Weeks Goal 3:: Patient improve lumbar ROM for function of recovery to perform ADLS Goal Time Frame: 4-6 Weeks Goal 4:: Patient to stand > 20min to perform cooking and ADL's Goal Time Frame: 4-6 Weeks Goal 5:: Patient to improve back oswesty by 5 points to improve QOL Goal Time Frame: 4-6 Weeks - Rehabilitation Potential Physical Therapy Diagnosis: This patient has left radicular symptoms without back pain with possible lateral stenosis worse with standing better walking and standing. better sitting thus will benefit from skilled PT to address these impairments Rehabilitation Potential: Good - Anticipated Interventions Patient/Client Instruction: Educate patient on: Condition, Plan of Care For the Purpose of:: To decrease pain, To increase ROM, To improve muscle performance and motor function, To improve ability to perform ADL's, To increase tolerance to activity/condition/position, To improve ability of physical actions for home/community/work/leisure, To improve health of tissue, To decrease soft tissue restriction, To increase flexibility/ROM, To improve endurance, To improve balance, To reduce risk of recurrence Therapeutic Exercise to Include: Strength training, Power training, Endurance training, Balance training, Body mechanics, Postural training, Flexibilty training, Dynamic Lumbar Stabilization For the Purpose of:: To decrease pain, To increase ROM, To improve muscle performance and motor function, To improve ability to perform ADL's, To increase tolerance to activity/condition/position, To improve ability of physical actions for home/community/work/leisure, To improve health of tissue, To decrease soft tissue restriction, To increase flexibility/ROM, To reduce risk of recurrence, To prevent re-injury, To improve tolerance to ADL's Thank you for the opportunity to evaluate your patient. For Medicare and Medicare HMO plans, please review the plan of care and approve it. It will need to be FAXED BACK to us at [phone] for Medicare purposes. For Medicare only, by signing this I certify the plan of care. Please let me know if there are questions or concerns regarding this plan of care. Physician Signature: Date:
--- NOTE | 2022-04-13 08:59 | HP.PTDCSUM ---
It has been my pleasure to treat KRYSTYNA PADGETT referred by Dr. Aly Cornejo DO, with the diagnosis of LUMBAR DDD/CLAUDICATION for a total of 8 visit(s). Discharge Date: Please see the following information for a summary of their discharge status. Subjective: Plan to RTD next month. Stand longer 40mins which is improved Left Hip Pain Intensity (Out of 10): 1 % Improvement: 40 Objective/Function: POSTURE:WFL. GAIT: reciprocal pattern. MMT: QUADS/HAMS 4/5 ,HIP FLEXION 4/5,ANKLE 4/5. LUMBAR ROM: FLEXION/EXTENSION WFL Goal 1:: Patient to be I with HEP. Goal 2:: Patient demonstrate 50% improvement with improve function with standing with less Goal 3:: Patient improve lumbar ROM for function of recovery to perform ADLS Goal 4:: Patient to stand > 20min to perform cooking and ADL's Goal 5:: Patient to improve back oswesty by 5 points to improve QOL Plan: RTD If there are questions or concerns regarding this patient's physical therapy, please feel free to call me at [phone]. Thank you for the referral of this patient. Sincerely, Krystyna Munoz, PT, Cert MDT, OCS Balance/Gait/Functional tests - Balance/Special Test Scores Oswestry Low Back Score: 21
== END 2021-11-24 19:00 | disposition home or self-care (01) ==
LOC: PT 11:00
PROVIDERS: PCP Student in an Organized Health Care Education/Training Program; Referring Provider Student in an Organized Health Care Education/Training Program; Visit Provider Student in an Organized Health Care Education/Training Program
DX: M51.36 Other intervertebral disc degeneration, lumbar region (principal)
CPT/HCPCS: 97110; 97162

== ENCOUNTER 2022-05-16 22:13 | Emergency (ER) | payer MEDICARE, SELFPAY ==
[2022-05-16 22:14] VITALS: BP 113/71; PULSE 80; RESP 19; TEMP 36.9; O2SAT 97; BMI 44.1
--- NOTE | 2022-05-16 22:45 | RAD_ITS ---
STUDY: X-RAY CHEST REASON FOR EXAM: Male, 66 years old. Chest pain TECHNIQUE: PA and lateral views of the chest. COMPARISON: 10/06/2015 FINDINGS: Chronically elevated left hemidiaphragm. Right lung base atelectasis. No focal consolidation. There is no demonstrated pleural abnormality. There is borderline cardiomegaly. Normal mediastinum and annabelle. Normal visualized pulmonary arteries. There is atherosclerotic calcification of the aortic arch with tortuosity. There is no demonstrated abnormality of the visualized soft tissue structures of the upper abdomen. RAD/Chest PA and Lateral IMPRESSION: Right lung base atelectasis. Electronically Signed: Mark Troy MD at 23:38 EST ,
--- NOTE | 2022-05-16 23:02 | EDS_ITS ---
HPI History of Present Illness Chief Complaint: Chest Pain Narrative Narrative: Patient is a 66-year-old male with past medical history of hypertension hyperlipidemia and MARIELENA as well as paroxysmal atrial fibrillation only on a baby aspirin. Patient states that he has history of chronic back pain and was crawling into bed this evening around 9:00 and he noticed some midsternal chest tightness. He states that there was no associated nausea vomiting or diaphoresis. He reports he did have a heart attack roughly 10 years ago but did not require any stenting. He states that because of his history and the discomfort he called EMS. He was given baby aspirin as well as 3 nitros and upon arrival states pain has essentially resolved. [facility] Medical History Atherosclerotic heart disease of [place] coronary artery without angina pectoris Bilateral kidney stones Dyspnea HLD (hyperlipidemia) Hydronephrosis Hypertension Obesity PVCs (premature ventricular contractions) Sinus bradycardia Home Medications aspirin 81 mg tablet,delayed release 81 mg PO DAILY 11/18/15 [History Last Taken 02/25/17] allopurinol 100 mg tablet 100 mg PO BID 05/20/20 [History Last Taken Unknown] ezetimibe 10 mg tablet (Zetia) 10 mg PO DAILY #90 tabs 09/29/21 [Rx Last Taken Unknown] potassium citrate 10 mEq (1,080 mg) tablet,extended release 10 meq PO BID 01/27/22 [History Last Taken Unknown] amlodipine 5 mg tablet 5 mg PO DAILY blood pressure #90 tabs 03/04/22 [Rx Last Taken Unknown] spironolactone 25 mg-hydrochlorothiazide 25 mg tablet 1 tab PO DAILY htn #90 tabs 03/04/22 [Rx Last Taken Unknown] cephalexin 500 mg capsule 500 mg PO TID 7 days #21 caps 05/17/22 [Rx Last Taken Unknown] Allergy/AdvReac Type Severity Reaction Status Date / Time VICKIE Inhibitors Allergy Severe Angioedema Verified 05/16/22 22:18 Beta-Blockers Allergy Intermediate HEART RATE Verified 05/16/22 22:18 (Beta-Adrenergic Bloc DROPS VERY LOW clonidine Allergy Other Verified 05/16/22 22:18 lisinopril Allergy Angioedema Verified 05/16/22 22:18 simvastatin AdvReac Severe myalgia Verified 05/16/22 22:18 rosuvastatin AdvReac Intermediate Myalgia Verified 05/16/22 22:18 Family History (Reviewed 05/02/22 @ 10:37 by Cathy Ruiz ROBOTIC MAINTENANCE TECHNICIAN, ROBOTIC MAINTENANCE TECHNICIAN-C) Mother CAD (coronary artery disease) CHF, stent CHF (congestive heart failure) Father Valvular disease CHF (congestive heart failure) Surgical History (Reviewed 05/02/22 @ 10:37 by Cathy Ruiz ROBOTIC MAINTENANCE TECHNICIAN, ROBOTIC MAINTENANCE TECHNICIAN-C) History of arthroscopy of left knee History of back surgery History of left heart catheterization (~11/18/15) History of left knee surgery History of repair of left rotator cuff History of shoulder surgery Hx of hernia repair Social History (Reviewed 05/02/22 @ 10:37 by Cathy Ruiz ROBOTIC MAINTENANCE TECHNICIAN, ROBOTIC MAINTENANCE TECHNICIAN-C) Smoking Status: Former smoker alcohol intake: current ROS ROS ED Constitutional Constitutional ED: Denies chills or fever(s) ENT ENT ED: Denies sore throat Cardiovascular Cardiovascular: Reports chest pain; Denies palpitations or racing heartbeat Respiratory/Chest Respiratory/Chest: Denies cough or dyspnea Gastrointestinal Gastrointestinal: Denies abdominal pain, diarrhea, nausea or vomiting Genitourinary Genitourinary ED: Denies dysuria or hematuria Musculoskeletal Musculoskeletal: Reports back pain Integumentary Denies rash Neurologic Neurologic: Denies headache(s) Hematologic/Lymphatic Hematologic/Lymphatic: Denies easy bleeding or easy bruising EXAM Physical Exam Const Vital Signs: 05/16/22 22:14 05/16/22 22:21 05/16/22 23:30 Temperature 98.4 F Temperature Source Oral Pulse Rate 80 60 Respiratory Rate 19 H 14 Respiratory Effort Normal Non-Labored Blood Pressure 113/71 120/77 Blood Pressure Mean 85 91 Pulse Ox 97 96 Oxygen Delivery Method Room Air Room Air 05/17/22 00:01 05/17/22 01:00 Temperature Temperature Source Pulse Rate 61 65 Respiratory Rate 19 H 12 Respiratory Effort Blood Pressure 106/61 114/69 Blood Pressure Mean 76 84 Pulse Ox 96 96 Oxygen Delivery Method Room Air Room Air Positive well nourished, well developed and obese General Appearance ED: well developed Nutritional Appearance: obese Eyes PERRL and EOMs intact bilaterally Neck supple and no JVD Chest Wall palpation of chest normal Chest Narrative: No bony deformity or crepitus noted Resp normal respiratory effort and clear to auscultation bilaterally Cardio regular rate and regular rhythm Rate: other Other Details: Radial pulses are +2-4 bilaterally are equal and symmetric Carotid pulses equal and symmetric as well GI normal to inspection, nondistended, normoactive bowel sounds, non-tender and non-distended GI Narrative: No voluntary guarding or rigidity no pulsatile mass Auscultation: normoactive bowel sounds Palpation: soft Extremity Extremity Narrative: +1 pitting edema to the bilateral lower extremities that is equal and symmetric and chronic per patient. Negative Homans' sign bilaterally Neuro oriented x3, CN's II-XII intact bilaterally and no sensory deficits noted Sensorium / Orientation: alert Psych mental status grossly normal Skin no rashes or lesions noted MDM MDM MDM Narrative Medical decision making narrative: Patient presented to the ER with resolution of his chest pain. He denied any associated nausea vomiting or diaphoresis or shortness of breath associated with this. However he does have a remote history of HI as well as hypertension and hyperlipidemia and MARIELENA putting him at moderate risk for heart disease. A cardiac work-up was obtained which shows an initial troponin of 8 and a 2-hour delta of 9. The one-point elevation is not clinically significant. The patient's initial EKG showed no ischemic changes. A D-dimer was obtained which is technically normal for the patient's age as at 66 normal for him is under 600 and the D-dimer was 540. The chest x-ray reveals no lung pathology or no widening of the mediastinum to suggest dissection. On reevaluation the patient is resting comfortably and has had improvement of his chest pain. The patient did have a urine sample obtained because of his back pain with concern for infection or kidney stone. There is no blood present going against kidney stone but it does show changes consistent with infection. However with this he does not have a fever he is not displaying leukocytosis and there are no changes to suggest acute kidney injury. Therefore he was given Rocephin and as his work-up reveals no acute cardiac dysfunction or signs of systemic infection/sepsis he can be discharged home with outpatient follow-up Lab Data Attestation: I reviewed the patient's lab results. Labs: Laboratory Results - last 24 hr 05/16/22 05/16/22 05/16/22 23:03 23:03 23:06 WBC 7.6 RBC 4.14 L Hgb 12.4 L Hct 37.5 L MCV 90.6 MCH 30.0 MCHC 33.1 RDW Std Deviation 45.4 H RDW Coeff of Sai 13.6 Plt Count 217 MPV 11.7 Immature Gran % (Auto) 0.400 Neut % (Auto) 73.5 H Lymph % (Auto) 16.1 L [place] % (Auto) 8.4 Eos % (Auto) 1.2 Baso % (Auto) 0.4 Absolute Neuts (auto) 5.6 Absolute Lymphs (auto) 1.23 Nucleated RBC % 0 D-Dimer Quant (PE/DVT) 0.54 H* Sodium 143 Potassium 3.4 L Chloride 107 Carbon Dioxide 31.0 Anion Gap 5 BUN 28 H Creatinine 0.78 Estim Creat Clear Calc 85.20 Est GFR (MDRD) Af Amer 129 Est GFR (MDRD) Non-Af 106 BUN/Creatinine Ratio 36.0 H Glucose 104 Calcium 8.4 L Magnesium 1.8 Troponin I High Sens 8 Urine Color Urine Clarity Urine pH Ur Specific [place] Urine Protein Urine Glucose (UA) Urine Ketones Urine Occult Blood Urine Nitrite Urine Bilirubin Urine Urobilinogen Ur Leukocyte Esterase Urine RBC Urine WBC Ur Squamous Epith Cells Urine Bacteria Hyaline Casts Urine Mucus 05/16/22 05/17/22 23:37 01:02 WBC RBC Hgb Hct MCV MCH MCHC RDW Std Deviation RDW Coeff of Sai Plt Count MPV Immature Gran % (Auto) Neut % (Auto) Lymph % (Auto) [place] % (Auto) Eos % (Auto) Baso % (Auto) Absolute Neuts (auto) Absolute Lymphs (auto) Nucleated RBC % D-Dimer Quant (PE/DVT) Sodium Potassium Chloride Carbon Dioxide Anion Gap BUN Creatinine Estim Creat Clear Calc Est GFR (MDRD) Af Amer Est GFR (MDRD) Non-Af BUN/Creatinine Ratio Glucose Calcium Magnesium Troponin I High Sens 9 Urine Color Yellow Urine Clarity Sl. Cloudy Urine pH 7.0 Ur Specific [place] 1.015 Urine Protein Negative Urine Glucose (UA) Normal Urine Ketones Negative Urine Occult Blood Negative Urine Nitrite Negative Urine Bilirubin Negative Urine Urobilinogen 4 H Ur Leukocyte Esterase 500 H Urine RBC 0 SEEN Urine WBC 10-25 SEEN Ur Squamous Epith Cells 0-5 SEEN Urine Bacteria 1+ Hyaline Casts 0 SEEN Urine Mucus 0 SEEN Radiography Diagnostic Testing: Clinical Impression(s) from Imaging Studies Chest X-Ray 05/16/22 22:45 IMPRESSION: Right lung base atelectasis. Electronically Signed: Mark Troy MD at 23:38 EST , 2 view chest x-ray as interpreted by the emergency medicine physician reveals elevation of the left hemidiaphragm which is chronic in nature without acute infiltrate pneumothorax pleural effusion or widening of the mediastinum Discharge Plan Triage Chief Complaint: Chest Pain ED Provider: Morro Chase Dx/Rx/DC Orders Clinical Impression: Nonspecific chest pain, Acute pyelonephritis Instructions: ED Chest Pain, Uncertain Cause, ED Pyelonephritis, Male (Adult) Prescriptions: New cephalexin 500 mg capsule 500 mg PO TID 7 Days Qty: 21 0RF No Action allopurinol 100 mg tablet 100 mg PO BID potassium citrate 10 mEq (1,080 mg) tablet extended release 10 meq PO BID ezetimibe [Zetia] 10 mg tablet 10 mg PO DAILY Qty: 90 3RF Hold Instructions: Blisters aspirin 81 MG tablet,delayed release (DR/EC) 81 mg PO DAILY amlodipine 5 mg tablet 5 mg PO DAILY Qty: 90 3RF spironolacton-hydrochlorothiaz 25-25 mg tablet 1 tab PO DAILY Qty: 90 3RF Primary Care Provider: Aly Cornejo Referrals: Aly Cornejo DO [Primary Care Provider] - Activity Restrictions/Additional Instructions: Please return to the ER if he have any further concerns or worsening of symptoms Disposition Disposition: Home, Self Care
[2022-05-16 23:09] LABS: Absolute Lymphocyte Count 1.23 X10^3/uL (0.83-4.51); Absolute Neutrophil Count 5.6 X10^3/uL (2.0-7.7); Basophil# 0.03 X10^3/uL; Basophil% 0.4 % (0-1); Eosinophil# 0.09 X10^3/uL; Eosinophils% 1.2 % (0-5); Hematocrit 37.5 % (40-54); Hemoglobin 12.4 g/dL (13.0-16.5); Lymphocyte # 1.23 X10^3/ul (0.83-4.51); Lymphocyte % 16.1 % (19-41); Mean Corp Hgb Conc 33.1 g/dL (32-36); Mean Corpuscular Volume 90.6 fL (80-94); Mean Platelet Vol. 11.7 fl (6.2-12.0); Monocyte# 0.64 X10^3/uL; Monocyte% 8.4 % (0-10); NRBC Flagged by Analyzer 0 % (0-5); Neutrophil % 73.5 % (47-70); Platelet Count 217 K/mm3 (150-450); RBC Distribution Width CV 13.6 % (11.6-14.6); RBC Distribution Width SD 45.4 fl (35.1-43.9); Red Blood Count 4.14 M/mm3 (4.6-6.2); White Blood Count 7.6 K/mm3 (4.4-11.0)
[2022-05-16 23:29] LABS: D-Dimer Quantitative (DVT/PE) 0.54 FEU/ug/m (0.27-0.49)
[2022-05-16 23:30] VITALS: BP 120/77; PULSE 60; RESP 14; O2SAT 96
[2022-05-16 23:39] LABS: Anion Gap 5 (5-15); BUN 28 mg/dL (7-18); Calcium,Total 8.4 mg/dL (8.5-10.1); Chloride 107 mmol/L (98-107); Creatinine, Serum 0.78 mg/dL (0.70-1.30); EST Glomerular Filtration Rate 106 mL/min (>60); Est Glom Filt Rate - Afr Amer 129 mL/min (>60); Glucose 104 mg/dL (74-106); Magnesium 1.8 mg/dL (1.6-2.6); Potassium 3.4 mmol/L (3.5-5.1); Sodium Level 143 mmol/L (136-145); Troponin-I HS 8 pg/mL (3.0-78.0)
[2022-05-16 23:43] LABS: Mucous, Urine 0 SEEN /hpf (<or=2+); Red Blood Cells-Urine 0 SEEN /hpf (0-5)
[2022-05-16 23:44] LABS: Color, Urine Yellow (Yellow); Glucose, Dipstick Normal (Normal); Ketone-Dipstick Negative (Negative); Leukocyte Esterase-Dipstick 500 /ul (Negative); Nitrite-Dipstick Negative (Negative); Occult Blood-Urine Negative /ul (Negative); Protein-Dipstick Negative (Negative); Specific Gravity, Urine 1.015 (1.002-1.030); Urine Bilirubin Dipstick Negative (Negative); Urine Clarity Sl. Cloudy (Clear); Urine Urobilinogen 4 mg/dl (Normal)
[2022-05-16 23:52] LABS: Bacteria 1+ /hpf (None Seen); Squamous Epithelial Cells - UA 0-5 SEEN /hpf (0-5); White Blood Cells 10-25 SEEN /hpf (0-5)
[2022-05-16 23:53] LABS: Hyaline Cast 0 SEEN /lpf (0-5)
[2022-05-17 00:01] VITALS: BP 106/61; PULSE 61; RESP 19; O2SAT 96
[2022-05-17] MEDS: Ceftriaxone 1 GM/50 ML BAG IV (00:26)
[2022-05-17 01:00] VITALS: BP 114/69; PULSE 65; RESP 12; O2SAT 96
--- NOTE | 2022-05-17 01:07 | EKG12_ITS ---
Test Reason : REPEAT Blood Pressure : / mmHG Vent. Rate : 057 BPM Atrial Rate : 057 BPM P-R Int : 184 ms QRS Dur : 102 ms QT Int : 432 ms P-R-T Axes : 083 -09 028 degrees QTc Int : 420 ms Sinus bradycardia with sinus arrhythmia Possible Inferior infarct , age undetermined Abnormal ECG Confirmed by CHRISTOPHER VEGA, ANGELA ([id number]), continuity editor JESUS BAJWA ([id number]) on 05/18/2022 11:10:37 AM Referred By: Confirmed By:ANGELA WHITE MD
[2022-05-17] MEDS: Morphine 4 MG/ML Syringe IV (01:17)
[2022-05-17] MEDS: Ondansetron 4 MG/2 ML Vial IV (01:17)
[2022-05-17 01:22] LABS: Troponin-I HS 9 pg/mL (3.0-78.0)
[2022-05-17 01:54] VITALS: BP 91/62; PULSE 56; RESP 18; O2SAT 100
== END 2022-05-17 02:07 | disposition home or self-care (01) ==
PROVIDERS: Emergency Provider Emergency Medicine; PCP Student in an Organized Health Care Education/Training Program; Visit Provider Emergency Medicine
DX: N10 Acute pyelonephritis (principal); R07.9 Chest pain, unspecified; G89.29 Other chronic pain; Z87.891 Personal history of nicotine dependence; I10 Essential (primary) hypertension; E78.5 Hyperlipidemia, unspecified; I25.10 Atherosclerotic heart disease of native coronary artery without angina pectoris; M54.9 Dorsalgia, unspecified
CPT/HCPCS: 71046; 80048; 81001; 83735; 84484; 85025; 85379; 87086; 87088; 93005; 99285; J7050; A4216; J2405

== ENCOUNTER → 2022-05-26 | Outpatient (CLI) | payer MEDICARE, SELFPAY ==
[2022-05-26 12:14] LABS: Anion Gap 6 (5-15); BUN 19 mg/dL (7-18); Calcium,Total 9.5 mg/dL (8.5-10.1); Chloride 103 mmol/L (98-107); Creatinine, Serum 0.76 mg/dL (0.70-1.30); EST Glomerular Filtration Rate 109 mL/min (>60); Est Glom Filt Rate - Afr Amer 132 mL/min (>60); Glucose 93 mg/dL (74-106); Potassium 3.6 mmol/L (3.5-5.1); Sodium Level 137 mmol/L (136-145)
== END | disposition home or self-care (01) ==
PROVIDERS: PCP Student in an Organized Health Care Education/Training Program; Referring Provider Nurse Practitioner Gerontology; Visit Provider Nurse Practitioner Gerontology
DX: R06.00 Dyspnea, unspecified (principal)
CPT/HCPCS: 36415; 80048; 83880

== ENCOUNTER → 2022-05-30 | Outpatient (CLI) | payer MEDICARE, SELFPAY ==
--- NOTE | 2022-05-30 13:27 | STRESSREP ---
Stress Test Report Exercise myocardial perfusion stress test. 66-year-old male with a history of chest pain. Stress protocol: Resting EKG demonstrates sinus rhythm with a rate of 60 bpm premature ventricular complex noted resting blood pressure is 118/80 mmHg. The patient exercised according to the regular Mazin protocol for total duration of 4 minutes and 10 seconds. The maximum heart rate was 144 bpm which was 92% of max impacted heart rate the maximum workload was 7 metabolic equivalents. At rest there were no ST or T wave changes noted to suggest ischemia and at peak exercise upsloping ST changes were noted. Did not meet the criteria for ischemia. No clinical angina was noted the test was terminated due to dyspnea. The peak blood pressure was 144/72 mmHg. Myocardial perfusion protocol. 8.6 mCi of technetium 99m sestamibi was injected at rest. The patient exercised according to regular Mazin protocol and at peak exercise 30.9 mCi of technetium 99m sestamibi was injected stress images were obtained stress and rest images were reconstructed and compared in the short axis vertical long and horizontal long axis. Gated images were also obtained to Perfusion SPECT analysis: Review of the stress images demonstrate normal uptake of tracer noted in all areas of the myocardium. The resting images similar demonstrate normal uptake of tracer noted in all areas of the myocardium. No areas of reversibility are noted to suggest ischemia and no previous infarct is noted. Gated SPECT analysis: The gated ejection fraction is 58%. Conclusion: Normal exercise myocardial perfusion stress test at a moderate workload. Preserved ejection fraction.
== END | disposition home or self-care (01) ==
PROVIDERS: PCP Student in an Organized Health Care Education/Training Program; Referring Provider Student in an Organized Health Care Education/Training Program; Visit Provider Student in an Organized Health Care Education/Training Program
DX: R07.9 Chest pain, unspecified (principal); R68.89 Other general symptoms and signs; I25.10 Atherosclerotic heart disease of native coronary artery without angina pectoris; I10 Essential (primary) hypertension; E78.5 Hyperlipidemia, unspecified
CPT/HCPCS: 78452; 93017; A9500; A4216

== ENCOUNTER → 2022-06-07 | Outpatient (CLI) | payer MEDICARE, SELFPAY ==
--- NOTE | 2022-06-07 13:17 | ECHOD_ITS ---
Reason For Study: DYSPNEA Procedure This was a 2D Doppler, Color Flow transthoracic echocardiogram. The study was technically limited. Exam performed in department. Left Ventricle Normal LV size. Left ventricular systolic function is normal. The estimated ejection fraction is 55 %. No evidence for diastolic dysfunction. No regional wall motion abnormalities noted. Right Ventricle Normal RV size. Normal systolic function. Atria Normal left atrium. Normal right atrium. No doppler evidence for ASD. Mitral Valve There is no mitral annular calcification. Normal mitral valve. Trivial mitral valve insufficiency. Tricuspid Valve Normal tricuspid valve. Trivial tricuspid valve insufficiency. Unable to estimate RV systolic pressure/pulmonary artery pressure due to technically difficult study. Aortic Valve The aortic valve is not well visualized. Pulmonic Valve The pulmonic valve is not well visualized. Great Vessels The aortic root is not well visualized. Pericardium/Pleural No pericardial effusion. MMode/2D Measurements & Calculations LVIDd: 5.1 cm IVSd: 1.1 cm LAV(MOD-bp): 64.3 ml LVIDs: 3.3 cm LVPWd: 1.2 cm LAV(MOD-bp) Indexed: 28.6 ml/m2 RVDd: 4.0 cm FS: 35.9 % LAV(MOD-sp2): 43.8 ml LAV(MOD-sp4): 68.7 ml SV(MOD-sp4): 61.5 ml SV(sp4-el): 66.5 ml LVAd ap4: 33.0 cm2 LVLd ap4: 7.9 cm EDV(MOD-sp4): 112.2 ml EDV(sp4-el): 117.0 ml LVAs ap4: 19.2 cm2 LVLs ap4: 6.2 cm ESV(MOD-sp4): 50.6 ml ESV(sp4-el): 50.5 ml EF(MOD-sp4): 54.9 % EF(sp4-el): 56.8 % LA A4 area: 25.1 cm2 LA dimension(2D): 3.7 cm RA A4 area: 15.4 cm2 Time Measurements MV dec time: 0.27 sec Doppler Measurements & Calculations MV E max feliciano: 71.3 cm/sec Lat Peak E' Feliciano: 12.2 cm/sec Med Peak E' Feliciano: 7.7 cm/sec MV A max feliciano: 53.1 cm/sec E/E' lat: 5.8 E/E' med: 9.2 MV E/A: 1.3 MV V2 max: 71.0 cm/sec MV dec slope: 275.9 cm/sec2 Ao V2 max: 145.9 cm/sec MV max P.0 mmHg Ao max P.5 mmHg MV V2 mean: 53.1 cm/sec Ao V2 mean: 99.9 cm/sec MV mean P.2 mmHg Ao mean P.6 mmHg MV V2 VTI: 28.1 cm Ao V2 VTI: 31.3 cm AV (velocity ratio): 0.70 LV V1 max: 106.1 cm/sec PA V2 max: 90.3 cm/sec LV V1 max P.5 mmHg PA V2 mean: 61.4 cm/sec LV V1 mean P.3 mmHg LV V1 mean: 69.4 cm/sec LV V1 VTI: 21.8 cm ECHO/Echo Complete Interpretation Summary The study was technically limited. Left ventricular systolic function is normal. The estimated ejection fraction is 55 %. Trivial mitral valve insufficiency. Trivial tricuspid valve insufficiency. Unable to estimate RV systolic pressure/pulmonary artery pressure due to techni amelia difficult study. No evidence for diastolic dysfunction. Ordering Physician: Karen Smith Performed By: Yue Madison RCS
== END | disposition home or self-care (01) ==
LOC: CVS 13:17
PROVIDERS: PCP Student in an Organized Health Care Education/Training Program; Visit Provider Nurse Practitioner Gerontology
DX: R06.00 Dyspnea, unspecified (principal); R06.02 Shortness of breath
CPT/HCPCS: 93306

== ENCOUNTER → 2022-06-14 | Outpatient (CLI) | payer MEDICARE, SELFPAY | END | disposition home or self-care (01) | LOC: LAB 11:02 | PROVIDERS: PCP Student in an Organized Health Care Education/Training Program; Visit Provider Registered Nurse | DX: Z12.5 Encounter for screening for malignant neoplasm of prostate (principal) | CPT/HCPCS: 36415; 84153; G0103 ==

== ENCOUNTER → 2022-09-12 | Outpatient (CLI) | payer MEDICARE, SELFPAY ==
[2022-09-12 12:16] LABS: Absolute Lymphocyte Count 1.45 X10^3/uL (0.83-4.51); Basophil# 0.04 X10^3/uL; Basophil% 0.5 % (0-1); Eosinophil# 0.09 X10^3/uL; Eosinophils% 1.1 % (0-5); Hematocrit 45.4 % (40-54); Hemoglobin 14.6 g/dL (13.0-16.5); Lymphocyte # 1.45 X10^3/ul (0.83-4.51); Lymphocyte % 17.5 % (19-41); Mean Corp Hgb Conc 32.2 g/dL (32-36); Mean Corpuscular Hgb 29.2 pg (27.0-32.0); Mean Corpuscular Volume 90.8 fL (80-94); Mean Platelet Vol. 11.4 fl (6.2-12.0); Monocyte# 0.66 X10^3/uL; NRBC Flagged by Analyzer 0 % (0-5); Neutrophil # 5.99 X10^3/uL (2.7-7.7); Neutrophil % 72.4 % (47-70); Platelet Count 220 K/mm3 (150-450); RBC Distribution Width CV 13.4 % (11.6-14.6); RBC Distribution Width SD 44.9 fl (35.1-43.9); White Blood Count 8.3 K/mm3 (4.4-11.0)
[2022-09-12 14:01] LABS: T4 Free Direct 0.96 ng/dL (0.76-1.46); Thyroid Stim Hormone (TSH) 1.32 uIU/mL (0.358-3.74)
== END | disposition home or self-care (01) ==
LOC: LAB 11:05
PROVIDERS: PCP Student in an Organized Health Care Education/Training Program; Referring Provider Nurse Practitioner Family; Visit Provider Nurse Practitioner Family
DX: I25.10 Atherosclerotic heart disease of native coronary artery without angina pectoris (principal); R53.83 Other fatigue; I49.3 Ventricular premature depolarization; I10 Essential (primary) hypertension; E78.5 Hyperlipidemia, unspecified
CPT/HCPCS: 36415; 84439; 84443; 85025

== ENCOUNTER 2022-10-16 06:35 | Emergency (ER) | payer MEDICARE, SELFPAY ==
[2022-10-16 06:37] VITALS: BP 129/68; PULSE 72; RESP 18; TEMP 36.7; O2SAT 97; BMI 40.8
[2022-10-16 06:48] LABS: Bacteria 0 SEEN /hpf (None Seen); Mucous, Urine 0 SEEN /hpf (<or=2+); Red Blood Cells-Urine 0 SEEN /hpf (0-5); Squamous Epithelial Cells - UA 0 SEEN /hpf (0-5)
--- NOTE | 2022-10-16 06:48 | CT_ITS ---
INDICATION: R flank pain EXAMINATION: CT ABDOMEN AND PELVIS WITHOUT CONTRAST TECHNIQUE: Helically acquired images were obtained of the abdomen and pelvis without IV contrast. 2-D reconstructions reviewed. A radiation dose optimization technique was used for this scan. IV Contrast dosage and agent: None. Oral contrast: None. COMPARISON: Unenhanced CT abdomen and pelvis from 12/21/2018 FINDINGS: LOWER CHEST: Partially imaged, chronically elevated left hemidiaphragm. Mild right basilar atelectatic changes. 1 cm pleural-based nodular opacity medial right lower lobe at location of atelectasis and/or scarring on prior exam. Heart size within normal limits. LIVER: Homogeneous. No discrete mass. GALLBLADDER AND BILIARY TREE: No calcified gallstones identified. No gallbladder wall edema demonstrated. No significant biliary ductal dilation. PANCREAS: No discrete mass or peripancreatic edema. SPLEEN: Normal size without discrete mass. ADRENAL GLANDS: Unremarkable. KIDNEYS AND URETERS: Normal renal size and position. Left peripelvic renal cysts noted. No hydroureteronephrosis. No renal or ureteral stones identified. Small calcified pelvic phleboliths noted. PERITONEUM: No peritoneal free air or significant free fluid. RETROPERITONEUM: No retroperitoneal mass. BOWEL: No evidence of acute appendicitis. No bowel obstruction or significant bowel thickening. Scattered colonic diverticula. No focal inflammatory change. LYMPH NODES: No enlarged mesenteric or retroperitoneal lymph nodes. VESSELS: Atherosclerotic calcifications with no abdominal aortic aneurysm. URINARY BLADDER: There is tenting of urinary bladder wall towards base of small to moderate size chronic right inguinal fat hernia. REPRODUCTIVE ORGANS: No pelvic masses. ABDOMINAL WALL: Chronic right inguinal fat hernia. Suggestion of prior left inguinal hernia plug repair. BONES: Chronic L5 pars defects with secondary grade 2 anterolisthesis of L5 over S1. Degenerative disc space narrowing also at this level. CT/Abdomen/Pelvis without Cont IMPRESSION: 1. No nephrolithiasis or obstructive uropathy. 2. Tenting of urinary bladder towards right inguinal fat hernia, possibly symptomatic. Follow-up as clinically warranted. 3. Small pleural-based nodular opacity within right lung base likely benign scarring or mild residual atelectasis. Small pulmonary neoplasm also the differential. Consider follow-up CT in 3-6 months to reassess. 4. Other nonurgent findings within body of report. Electronically Signed: Rafael Forbes MD at 7:39 EDT ,
--- NOTE | 2022-10-16 06:49 | EDS_ITS ---
HPI HPI - GI History of Present Illness Chief Complaint: Abd Pain Informant: patient Abdominal Pain/Flank Pain Onset: Days (1-2) Context: Gradual Onset Timing: Continuous and Waxes and wanes Quality: Aching Location: Right Flank Current Severity: Mild Maximum Severity: Moderate Worsened by: Nothing Relieved by: Nothing Nausea/Vomiting/Emesis GI Symptom: Negative for Nausea or Vomiting Diarrhea/Melena/Hematochezia GI Symptom: Negative for Diarrhea, Melena or Hematochezia Associated Symptoms Associated Symptoms: Negative for Dysuria, Frequency, Hematuria or Urgency Narrative Narrative: Patient having gradual onset of colicky pain in the right flank. He states he mostly feels it in the right lower quadrant, occasionally in the back. The last time he had this, he was diagnosed with a kidney infection last year. He states he has had kidney stones before, and the pain is usually much more severe than it has been in the last day or 2 with this episode. He denies any recent injury. No fevers, chills, nausea, vomiting, urinary symptoms. Had a herniorrhaphy in his abdomen no other surgeries, and it was not recent. [facility] Medical History Atherosclerotic heart disease of [place] coronary artery without angina pectoris Bilateral kidney stones Dyspnea Essential hypertension HLD (hyperlipidemia) Hydronephrosis Hypertension Obesity PVCs (premature ventricular contractions) Sinus bradycardia Home Medications aspirin 81 mg tablet,delayed release 81 mg PO DAILY 11/18/15 [History Last Taken 02/25/17] allopurinol 100 mg tablet 100 mg PO BID 05/20/20 [History Last Taken Unknown] ezetimibe 10 mg tablet (Zetia) 10 mg PO DAILY #90 tabs 09/29/21 [Rx Last Taken Unknown] potassium citrate 10 mEq (1,080 mg) tablet,extended release 10 meq PO BID 01/27/22 [History Last Taken Unknown] amlodipine 5 mg tablet 5 mg PO DAILY blood pressure #90 tabs 03/04/22 [Rx Last Taken Unknown] spironolactone 25 mg-hydrochlorothiazide 25 mg tablet 1 tab PO DAILY htn #90 tabs 03/04/22 [Rx Last Taken Unknown] apixaban 5 mg tablet (Eliquis) 5 mg PO BID #180 tabs 06/22/22 [Rx Last Taken Unknown] nitroglycerin 0.4 mg sublingual tablet 0.4 mg sublingual Q5M PRN 09/12/22 [History Last Taken Unknown] Allergy/AdvReac Type Severity Reaction Status Date / Time VICKIE Inhibitors Allergy Severe Angioedema Verified 09/12/22 10:08 Beta-Blockers Allergy Intermediate HEART RATE Verified 09/12/22 10:08 (Beta-Adrenergic Bloc DROPS VERY LOW clonidine Allergy Other Verified 09/12/22 10:08 lisinopril Allergy Angioedema Verified 09/12/22 10:08 simvastatin AdvReac Severe myalgia Verified 09/12/22 10:08 rosuvastatin AdvReac Intermediate Myalgia Verified 09/12/22 10:08 Family History (Reviewed 09/12/22 @ 10:30 by Emil Jones [employer], [employer]) Mother CAD (coronary artery disease) CHF, stent CHF (congestive heart failure) Father Valvular disease CHF (congestive heart failure) Surgical History History of arthroscopy of left knee History of back surgery History of left heart catheterization (~11/18/15) History of left knee surgery History of repair of left rotator cuff History of shoulder surgery Hx of hernia repair Social History Smoking Status: Former smoker alcohol intake: current ROS ROS ED Constitutional Constitutional ED: Denies chills or fever(s) Eyes Eyes: Denies change in vision or diplopia ENT ENT ED: Denies rhinorrhea or sore throat Cardiovascular Cardiovascular: Denies chest pain or palpitations Respiratory/Chest Respiratory/Chest: Denies cough or dyspnea Gastrointestinal Gastrointestinal: Reports abdominal pain; Denies diarrhea, nausea or vomiting Genitourinary Genitourinary ED: Reports flank pain and low back pain; Denies dysuria or hematuria Musculoskeletal Musculoskeletal: Denies back pain or neck pain Integumentary Denies abscess or rash Neurologic Neurologic: Denies headache(s), paresthesias or weakness Psychiatric Psychiatric: Denies anxiety or suicidal thoughts EXAM Physical Exam Const Vital Signs: 10/16/22 06:37 Temperature 98.0 F Temperature Source Oral Pulse Rate 72 Respiratory Rate 18 Blood Pressure 129/68 H Blood Pressure Mean 88 Pulse Ox 97 Oxygen Delivery Method Room Air Positive well nourished and well developed Constitutional Narrative: Well-appearing normal gait General Appearance ED: well developed and NAD HEENT Reports moist mucous membranes normocephalic and atraumatic Eyes PERRL and EOMs intact bilaterally Neck full ROM and supple Resp normal respiratory effort and clear to auscultation bilaterally Cardio regular rate, regular rhythm and no murmurs GI non-tender and non-distended Auscultation: normoactive bowel sounds Palpation: soft Back/Spine General Back: CVA tenderness right and other FROM Extremity normal to inspection General Extremety ED: Negative for edema, pulses abnormal or tenderness General Extremity: Negative for edema or pulses abnormal Neuro oriented x3, CN's II-XII intact bilaterally and no sensory deficits noted Sensorium / Orientation: awake and alert Motor Exam: strength 5/5 throughout Skin no rashes or lesions noted and no wounds MDM MDM MDM Narrative Medical decision making narrative: Patient is well-appearing benign exam and normal vital signs. Differential includes pyelonephritis as well as ureterolithiasis/renal colic, less likely to be appendicitis since he is nontender in his abdomen. Urinalysis, labs, CT obtained. He declines analgesics at this time. The labs are normal, his urine does not appear infected. Since there is a small amount of leukocyte esterase, and given his history, I am sending this for a culture but I do not think he needs to be treated empirically without having any urinary symptoms. I reviewed his CT images and the report I agree with the radiologist's interpretation. The fact that his bladder is tending toward a fat-containing inguinal hernia is interesting but I do not think it necessarily is causing his symptoms, nor does anything appear acute there. He does not have any tenderness in this region. I discussed this with the patient close a patient follow-up advised, also the differential is a stone that he had but recently passed and is having some residual pain that should resolve on its own. Lab Data Attestation: I reviewed the patient's lab results. Labs: Laboratory Results - last 24 hr 10/16/22 10/16/22 10/16/22 06:35 07:04 07:04 WBC 5.6 RBC 4.50 L Hgb 13.4 Hct 41.4 MCV 92.0 MCH 29.8 MCHC 32.4 RDW Std Deviation 48.7 H RDW Coeff of Sai 14.4 Plt Count 163 MPV 11.7 Immature Gran % (Auto) 0.400 Neut % (Auto) 74.0 H Lymph % (Auto) 14.9 L [place] % (Auto) 8.9 Eos % (Auto) 1.6 Baso % (Auto) 0.2 Absolute Neuts (auto) 4.2 Absolute Lymphs (auto) 0.84 Nucleated RBC % 0 Sodium 138 Potassium 3.5 Chloride 106 Carbon Dioxide 29.0 Anion Gap 3 L BUN 24 H Creatinine 0.89 Estim Creat Clear Calc 73.68 Est GFR (MDRD) Af Amer 110 Est GFR (MDRD) Non-Af 91 BUN/Creatinine Ratio 27.1 H Glucose 117 H Calcium 8.6 Urine Color Yellow Urine Clarity Clear Urine pH 5.0 Ur Specific [place] 1.020 Urine Protein 15 H Urine Glucose (UA) Normal Urine Ketones Negative Urine Occult Blood 50 H Urine Nitrite Negative Urine Bilirubin Negative Urine Urobilinogen Normal Ur Leukocyte Esterase 25 H Urine RBC 0 SEEN Urine WBC 0-5 SEEN Ur Squamous Epith Cells 0 SEEN Urine Bacteria 0 SEEN Urine Mucus 0 SEEN Radiography Diagnostic Testing: Clinical Impression(s) from Imaging Studies Abdomen/Pelvis CT 10/16/22 06:48 IMPRESSION: 1. No nephrolithiasis or obstructive uropathy. 2. Tenting of urinary bladder towards right inguinal fat hernia, possibly symptomatic. Follow-up as clinically warranted. 3. Small pleural-based nodular opacity within right lung base likely benign scarring or mild residual atelectasis. Small pulmonary neoplasm also the differential. Consider follow-up CT in 3-6 months to reassess. 4. Other nonurgent findings within body of report. Electronically Signed: Rafael Forbes MD at 7:39 EDT , Discharge Plan Triage Chief Complaint: Abd Pain ED Provider: Aditya Singh Dx/Rx/DC Orders Clinical Impression: Acute right flank pain Instructions: ED Flank Pain, Uncertain Cause Prescriptions: No Action allopurinol 100 mg tablet 100 mg PO BID potassium citrate 10 mEq (1,080 mg) tablet extended release 10 meq PO BID ezetimibe [Zetia] 10 mg tablet 10 mg PO DAILY Qty: 90 3RF Hold Instructions: Blisters nitroglycerin 0.4 mg tablet, sublingual 0.4 mg sublingual Q5M PRN Rx Instructions: do not exceed 3 doses per episode aspirin 81 MG tablet,delayed release (DR/EC) 81 mg PO DAILY amlodipine 5 mg tablet 5 mg PO DAILY Qty: 90 3RF spironolacton-hydrochlorothiaz 25-25 mg tablet 1 tab PO DAILY Qty: 90 3RF Eliquis 5 mg tablet 5 mg PO BID Qty: 180 3RF Primary Care Provider: Aly Cornejo Referrals: Aly Cornejo DO [Primary Care Provider] - 3-5 Days if not improving Disposition Disposition: Home, Self Care
[2022-10-16 07:22] LABS: Anion Gap 3 (5-15); BUN 24 mg/dL (7-18); BUN/Creat Ratio 27.1 RATIO (10-20); Calcium,Total 8.6 mg/dL (8.5-10.1); Chloride 106 mmol/L (98-107); Creatinine, Serum 0.89 mg/dL (0.70-1.30); EST Glomerular Filtration Rate 91 mL/min (>60); Est Glom Filt Rate - Afr Amer 110 mL/min (>60); Estimated Creatinine Clearance 73.68 ml/min; Glucose 117 mg/dL (74-106); Potassium 3.5 mmol/L (3.5-5.1); Sodium Level 138 mmol/L (136-145)
[2022-10-16 07:26] LABS: Absolute Lymphocyte Count 0.84 X10^3/uL (0.83-4.51); Absolute Neutrophil Count 4.2 X10^3/uL (2.0-7.7); Basophil# 0.01 X10^3/uL; Basophil% 0.2 % (0-1); Eosinophil# 0.09 X10^3/uL; Eosinophils% 1.6 % (0-5); Hematocrit 41.4 % (40-54); Hemoglobin 13.4 g/dL (13.0-16.5); Lymphocyte # 0.84 X10^3/ul (0.83-4.51); Lymphocyte % 14.9 % (19-41); Mean Corp Hgb Conc 32.4 g/dL (32-36); Mean Corpuscular Hgb 29.8 pg (27.0-32.0); Mean Platelet Vol. 11.7 fl (6.2-12.0); Monocyte% 8.9 % (0-10); NRBC Flagged by Analyzer 0 % (0-5); Neutrophil # 4.18 X10^3/uL (2.7-7.7); Platelet Count 163 K/mm3 (150-450); RBC Distribution Width CV 14.4 % (11.6-14.6); RBC Distribution Width SD 48.7 fl (35.1-43.9); White Blood Count 5.6 K/mm3 (4.4-11.0)
[2022-10-16 07:47] LABS: Color, Urine Yellow (Yellow); Glucose, Dipstick Normal (Normal); Ketone-Dipstick Negative (Negative); Leukocyte Esterase-Dipstick 25 /ul (Negative); Nitrite-Dipstick Negative (Negative); Occult Blood-Urine 50 /ul (Negative); Protein-Dipstick 15 mg/dl (Negative); Urine Bilirubin Dipstick Negative (Negative); Urine Clarity Clear (Clear); Urine Urobilinogen Normal (Normal)
[2022-10-16 07:56] LABS: White Blood Cells 0-5 SEEN /hpf (0-5)
[2022-10-16 08:03] VITALS: BP 123/52; PULSE 70; RESP 18; O2SAT 100
== END 2022-10-16 08:04 | disposition home or self-care (01) ==
PROVIDERS: Emergency Provider Emergency Medicine; PCP Student in an Organized Health Care Education/Training Program; Visit Provider Emergency Medicine
DX: R10.9 Unspecified abdominal pain (principal); E78.5 Hyperlipidemia, unspecified; I25.10 Atherosclerotic heart disease of native coronary artery without angina pectoris; Z87.891 Personal history of nicotine dependence; I10 Essential (primary) hypertension
CPT/HCPCS: 74176; 80048; 81001; 85025; 87086; 99283; A4216

== ENCOUNTER 2023-04-24 10:36 | Outpatient (CLI) | payer MEDICARE, SELFPAY ==
[2023-04-24 11:58] LABS: PSA,Total- Diagnostic 1.51 ng/mL (0.0-4.0)
== END 2023-04-24 23:59 | disposition home or self-care (01) ==
LOC: LAB 10:37
PROVIDERS: PCP Student in an Organized Health Care Education/Training Program; Referring Provider Nurse Practitioner; Visit Provider Nurse Practitioner
DX: Z12.5 Encounter for screening for malignant neoplasm of prostate (principal); Z80.42 Family history of malignant neoplasm of prostate; Z87.442 Personal history of urinary calculi; N40.0 Benign prostatic hyperplasia without lower urinary tract symptoms
CPT/HCPCS: 36415; 84153

== ENCOUNTER → 2023-11-21 | Outpatient (CLI) | payer MEDICARE, SELFPAY ==
--- NOTE | 2023-11-21 09:00 | PET_ITS ---
EXAMINATION: FDG PET/CT ? INDICATIONS: 68-year-old male with a history of pulmonary nodularity. ? COMPARISON EXAMINATION: None available TECHNIQUE: Following the intravenous administration of 10.95 mCi of F-18 deoxyglucose via the left antecubital fossa, multiplanar image acquisitions of the head, neck, chest, abdomen and pelvis to the level of the midthigh, obtained at one-hour post radiopharmaceutical administration contemporaneously interpreted with the current CT of the chest, abdomen and pelvis dated 11/21/2023 via coregistration reveal: ? SERUM GLUCOSE LEVEL:? 93 mg/dL? HEIGHT:?? 66 inches WEIGHT:?? 270 pounds ? FINDINGS: ? HEAD/NECK:? There is no evidence of abnormal increased glucose metabolism in the pharyngeal mucosal space, parapharyngeal space, oropharynx, bilateral-lateral and anterior neck, hypopharynx and distribution of the larynx. ? The visualized portion of the cerebral cortical-subcortical structures demonstrate symmetric and preserved glucose metabolism. ? CHEST:? A pronounced eventration of the left hemidiaphragm is demonstrated. There is no quantitative scintigraphic evidence of abnormal increased glucose metabolism within the context of the bilateral hemithorax pulmonary parenchyma, right and left hemithorax at the pleural interface, mediastinal structures, and left-right thoracic perihilum. ? CT of the chest demonstrates the following anatomic characteristics: There are no parenchymal densities-nodules defined in the right and left hemithorax with quantitatively significant increased FDG uptake. Atherosclerotic calcification is defined in the thoracic aorta without evidence of dilatation, aneurysm formation. Coronary artery calcification is observed. Bilateral axillary soft tissue densities are nonglucose avid. ? ABDOMEN/PELVIS:? Normal physiologic distribution of the radiopharmaceutical is identified in the hepatic and splenic parenchyma, both renal units, urinary bladder, and visualized intestinal tract. Diffuse intestinal tract is identified in all four quadrants of the abdominal-pelvic mesentery. ? CT of the abdomen and pelvis is remarkable for the following: A large fat containing right inguinal hernia is demonstrated. Right and left inguinal soft tissue densities are ametabolic. Calcified phlebolith formation is noted in the bilateral lower hemipelvis. Atherosclerotic calcification is defined in the abdominal aorta without evidence of dilatation, aneurysm formation. Pelvic arterial calcification is observed. ? SKELETAL:? There is no evidence of quantitatively significant enhanced glucose metabolism on meticulous inspection of the appendicular and axial skeletal structures. ? Degenerative changes defined in the thoracic and lumbar spine demonstrate no evidence of increased glucose metabolism. There are no sclerotic, mixed sclerotic-lytic, or primarily lytic changes defined in the axial skeletal structures with evidence of increased FDG uptake. ? PET/PET/CT Tumor Base -Thigh Init IMPRESSION: 1. NEGATIVE EXAMINATION. There is no definitive quantitative scintigraphic evidence of viable neoplasm. 2. Meticulous attention paid to the bilateral hemithorax pulmonary parenchyma demonstrates no evidence of increased tracer uptake on the present examination. 3. Morphologic, metabolic stability may be ensured in the bilateral hemithorax with repeat FDG-PET CT imaging in 3-6 months, if clinically indicated. Electronic Signature Jensen Pendleton D.O. Accurate Quantification of SUVs for this report are calculated using the exclusive [employer]. ([place]. Patent No. [phone] B2 [phone] [place] patent [phone] [id number] [phone]). Standardization and correction of the FDG SUV metric via [employer] technology allow for vendor non-specific objective quantitative examination comparison and optimization of the sensitivity and specificity of the FDG PET-CT examination. . [email or web address] Electronically Signed: Jensen Pendleton DO at 23:49 EDT ,
== END | disposition home or self-care (01) ==
PROVIDERS: PCP Student in an Organized Health Care Education/Training Program; Referring Provider Nurse Practitioner Acute Care; Visit Provider Nurse Practitioner Acute Care
DX: R91.8 Other nonspecific abnormal finding of lung field (principal); R91.1 Solitary pulmonary nodule
CPT/HCPCS: 78815; A9552

== ENCOUNTER → 2024-01-31 | Outpatient (CLI) | payer MEDICARE, SELFPAY ==
--- NOTE | 2024-01-31 06:10 | ECHOCS_ITS ---
Reason For Study: DYSPNEA Procedure This was a 2D Doppler, Color Flow transthoracic echocardiogram. The study was technically difficult. Due to body habitus. Contrast injection was performed. Exam performed in department. Left Ventricle Mild concentric left ventricular hypertrophy. Normal LV size. The left ventricular ejection fraction is 55 %. Normal diastology for age. Right Ventricle Normal right ventricle. Atria The left atrium is mildly enlarged. Normal right atrium. Mitral Valve Trivial mitral valve insufficiency. Tricuspid Valve Normal tricuspid valve. Aortic Valve The aortic valve is not well visualized in the short axis view. There is no aortic stenosis. Mild (1+) aortic valve insufficiency. Pulmonic Valve The pulmonic valve is not well visualized. Great Vessels Normal sized aortic root. Pericardium/Pleural No pericardial effusion. Medication Diluted definity 4.0ml given slow IV push to enhance endocardial definition. MMode/2D Measurements & Calculations LVIDd: 4.8 cm IVSd: 1.3 cm Ao root diam: 3.5 cm LVIDs: 3.1 cm LVPWd: 1.3 cm RVDd: 3.5 cm FS: 35.5 % LAV(MOD-bp): 84.3 ml LVAd ap4: 39.0 cm2 SV(MOD-sp4): 88.9 ml LAV(MOD-bp) Indexed: 37.1 ml/m2 LVLd ap4: 8.7 cm LAV(MOD-sp2): 83.2 ml EDV(MOD-sp4): 152.4 ml LAV(MOD-sp4): 83.6 ml EDV(sp4-el): 148.8 ml LVAs ap4: 21.7 cm2 LVLs ap4: 6.2 cm ESV(MOD-sp4): 63.5 ml ESV(sp4-el): 64.0 ml EF(MOD-sp4): 58.3 % EF(sp4-el): 57.0 % SV(sp4-el): 84.8 ml LA A4 area: 27.5 cm2 LA dimension(2D): 3.7 cm RA A4 area: 16.7 cm2 TAPSE: 2.5 cm Time Measurements MV dec time: 0.22 sec Doppler Measurements & Calculations MV E max feliciano: 72.5 cm/sec Lat Peak E' Feliciano: 12.8 cm/sec Med Peak E' Feliciano: 10.4 cm/sec MV A max feliciano: 45.0 cm/sec E/E' lat: 5.6 E/E' med: 7.0 MV E/A: 1.6 MV V2 max: 93.4 cm/sec MV P1/2t max feliciano: 95.6 cm/sec Ao V2 max: 175.6 cm/sec MV max P.5 mmHg MV P1/2t: 83.9 msec Ao max P.4 mmHg MV V2 mean: 51.7 cm/sec MV dec slope: 333.8 cm/sec2 Ao V2 mean: 112.1 cm/sec MV mean P.2 mmHg MVA(P1/2t): 2.6 cm2 Ao mean P.0 mmHg MV V2 VTI: 34.0 cm Ao V2 VTI: 37.5 cm AV (velocity ratio): 0.77 LV V1 max: 125.3 cm/sec PA V2 max: 100.0 cm/sec LV V1 max P.3 mmHg PA V2 mean: 68.3 cm/sec LV V1 mean P.5 mmHg LV V1 mean: 89.2 cm/sec LV V1 VTI: 28.7 cm ECHO/Echo Complete W/ Contrast Interpretation Summary The study was technically difficult. Mild concentric left ventricular hypertrophy. The left ventricular ejection fraction is 55 %. The left atrium is mildly enlarged. Mild (1+) aortic valve insufficiency. Ordering Physician: Donn Hawk Referring Physician: Aly Cornejo Performed By: Carina Lemos, FREDO, RVT
--- NOTE | 2024-01-31 12:51 | STRESSREP ---
Stress Test Report Date: 01/31/2024 Procedure: Exercise tolerance test/imaging study Indications: Coronary artery disease Consent: Per the patient Procedure: The patient exercised on a Mazin protocol for 3 minutes and 54 seconds achieving a peak heart rate of 130 bpm (84% predicted maximal heart rate) with a peak blood pressure 150/72 mmHg and a peak MET capacity of 6.7 METs. The baseline ECG demonstrated sinus rhythm. The peak exercise ECG demonstrated no ischemic changes. Occasional PVCs and PACs noted in exercise and in recovery. The functional capacity was considered below average. There was no complaint of chest discomfort during exercise or recovery. The examination was discontinued secondary to target heart rate being achieved. The patient was injected with 14.8 mCi of technetium 99m Cardiolite and subsequently rest SPECT Cardiolite nuclear imaging was obtained in the horizontal long, vertical long, and short axis views. Post-exercise, the patient was injected with 44.6 mCi of technetium 99m Cardiolite and subsequently stress SPECT Cardiolite nuclear imaging was obtained in the horizontal long, vertical long, and short axis views. A gated Cardiolite study at peak stress was obtained. Rest and stress SPECT Cardiolite nuclear imaging status post realignment, normalization, and attenuation correction, demonstrates the appearance of relative uniform tracer uptake and myocardial perfusion appearing within normal limits. There is end systolic thickening and brightening. The gated Cardiolite study demonstrates myocardial thickening and inward wall motion. The reported LVEF is 64%. Impression: 1. Technically adequate (percent predicted maximal heart rate greater than 85%) exercise tolerance test 2. Peak exercise ECG with no ischemic changes 3. PVCs and PACs noted with exercise and in recovery 4. Rest and stress SPECT Cardiolite nuclear imaging demonstrate relative uniform tracer uptake and myocardial perfusion appearing within normal limits. 5. The gated Cardiolite study reports an LVEF of 64%. This note was generated with [employer] software. It may contain incorrect words, spelling, and punctuation that were not noted in checking the note before signing.
== END | disposition home or self-care (01) ==
PROVIDERS: PCP Student in an Organized Health Care Education/Training Program; Referring Provider Internal Medicine Cardiovascular Disease; Visit Provider Internal Medicine Cardiovascular Disease
DX: Z00.00 Encounter for general adult medical examination without abnormal findings (principal); I48.0 Paroxysmal atrial fibrillation; R06.00 Dyspnea, unspecified; R53.83 Other fatigue; I25.10 Atherosclerotic heart disease of native coronary artery without angina pectoris; I10 Essential (primary) hypertension
CPT/HCPCS: 78452; 93017; 93306; A9500; Q9957; A4216; C8929

== ENCOUNTER → 2024-05-22 | Outpatient (CLI) | payer MEDICARE, SELFPAY ==
--- NOTE | 2024-05-22 18:25 | CT_ITS ---
INDICATION: follow nodule EXAMINATION: CT CHEST WITHOUT CONTRAST - CT Chest W/O Contrast Injection TECHNIQUE: Helically acquired images were obtained of the chest. A radiation dose optimization technique was used for this scan. IV Contrast dosage and agent: None. COMPARISON: None. FINDINGS: LUNGS, PLEURA AND LARGE AIRWAYS: No masses, consolidation, or edema. No pleural effusion or thickening. Elevated left hemidiaphragm. THYROID: No thyroid lesions. HEART AND PERICARDIUM: Heart size is normal. No pericardial effusion. CORONARY ARTERIES: Coronary artery calcification is seen. VESSELS: Thoracic aorta is not dilated. MEDIASTINUM AND JEANETTE: No mediastinal or hilar adenopathy. Esophagus is unremarkable. No hiatal hernia. UPPER ABDOMEN: No acute pathology. BONES: No suspicious lytic or blastic abnormality. CT/Chest without Contrast IMPRESSION: Negative CT chest without contrast. Electronically Signed: Jensen Leung MD at 8:55 EST ,
== END | disposition home or self-care (01) ==
LOC: CT 18:25
PROVIDERS: PCP Student in an Organized Health Care Education/Training Program; Referring Provider Nurse Practitioner Acute Care; Visit Provider Nurse Practitioner Acute Care
DX: R91.1 Solitary pulmonary nodule (principal)
CPT/HCPCS: 71250

== ENCOUNTER 2024-07-02 09:57 | Emergency (ER) | payer MEDICARE, SELFPAY ==
[2024-07-02 09:58] VITALS: BP 135/72; PULSE 82; RESP 18; TEMP 36.8; O2SAT 99; BMI 46.3
--- NOTE | 2024-07-02 10:11 | ED.VIS.LOWEX ---
HPI History of Present Illness Chief Complaint: Lower Extremity Injury Informant: patient and friend Narrative Narrative: 69-year-old male history of uric acid stones on allopurinol presenting to the emergency room with swelling pain redness to the lateral right foot. Patient states he has had gout in this area before and this feels very similar. Symptoms have been present for 3 days. In addition to allopurinol he also takes potassium citrate. He denies any known trauma to the foot recently. He is not a diabetic. No reported fevers. [facility] Medical History Intermittent palpitations Diminished pulses in lower extremity MARIELENA (obstructive sleep apnea) Chest pain Atrial fibrillation Fatigue Lung nodule, solitary Essential hypertension Dyspnea Obesity Bilateral kidney stones Hydronephrosis HLD (hyperlipidemia) PVCs (premature ventricular contractions) Atherosclerotic heart disease of [place] coronary artery without angina pectoris Sinus bradycardia Hypertension Home Medications ?Medication ?Instructions ?Recorded ?Last Taken ?Type allopurinol 100 mg tablet 100 mg PO BID 05/20/20 Unknown History ezetimibe 10 mg tablet (Zetia) 10 mg PO DAILY #90 tabs 09/29/21 Unknown Rx potassium citrate 10 mEq (1,080 10 meq PO BID 01/27/22 Unknown History mg) tablet,extended release amlodipine 5 mg tablet 5 mg PO DAILY blood pressure #90 03/04/22 Unknown Rx tabs spironolactone 25 1 tab PO DAILY htn #90 tabs 03/04/22 Unknown Rx mg-hydrochlorothiazide 25 mg tablet apixaban 5 mg tablet (Eliquis) 5 mg PO BID #180 tabs 06/22/22 Unknown Rx nitroglycerin 0.4 mg sublingual 0.4 mg sublingual Q5M PRN 09/12/22 Unknown History tablet sildenafil 25 mg tablet mg PO PRN 09/12/23 Unknown History Allergy/AdvReac Type Severity Reaction Status Date / Time VICKIE Inhibitors Allergy Severe Angioedema Verified 07/02/24 09:58 Beta-Blockers Allergy Intermediate HEART RATE Verified 07/02/24 09:58 (Beta-Adrenergic Bloc DROPS VERY LOW clonidine Allergy Other Verified 07/02/24 09:58 lisinopril Allergy Angioedema Verified 07/02/24 09:58 simvastatin AdvReac Severe myalgia Verified 07/02/24 09:58 rosuvastatin AdvReac Intermediate Myalgia Verified 07/02/24 09:58 Family History Mother CAD (coronary artery disease) CHF, stent CHF (congestive heart failure) Father Valvular disease CHF (congestive heart failure) Surgical History History of cardiac radiofrequency ablation (RFA) (~11/2022) History of left heart catheterization (~11/18/15) History of repair of left rotator cuff History of arthroscopy of left knee History of shoulder surgery Hx of hernia repair History of left knee surgery History of back surgery Social History Smoking Status: Former smoker alcohol intake: current alcohol intake frequency: a few times a month Alcohol type: wine substance use type: does not use caffeine: No ROS ROS ED Constitutional Constitutional ED: Denies chills, fever(s) or weight loss Eyes Eyes: Denies change in vision or diplopia ENT ENT ED: Denies ear pain, rhinorrhea or sore throat Cardiovascular Cardiovascular: Denies chest pain, orthopnea, palpitations or racing heartbeat Respiratory/Chest Respiratory/Chest: Denies cough, dyspnea or orthopnea Gastrointestinal Gastrointestinal: Denies abdominal pain, diarrhea, nausea or vomiting Genitourinary Genitourinary ED: Denies dysuria, hematuria or urinary frequency Musculoskeletal Musculoskeletal: Reports other Details: Right foot pain swelling redness ; Denies arthralgias or myalgias Integumentary Denies abscess or rash Neurologic Neurologic: Denies headache(s) or weakness Psychiatric Psychiatric: Denies anxiety, depression, suicidal ideation or suicidal thoughts Endocrine Endocrinology: Denies polydipsia, polyphagia or polyuria Allergic/Immunologic Allergic/Immunologic ED: Denies mouth swelling, tongue swelling or urticaria EXAM Physical Exam Const Vital Signs: 07/02/24 09:58 Temperature 98.2 F Temperature Source Oral Pulse Rate 82 Respiratory Rate 18 Blood Pressure 135/72 H Blood Pressure Mean 93 Pulse Ox 99 Oxygen Delivery Method Room Air Positive well nourished, well developed and obese General Appearance ED: well developed and NAD Nutritional Appearance: obese HEENT Reports normocephalic, head/scalp atraumatic and moist mucous membranes Eyes PERRL and EOMs intact bilaterally Neck full ROM, no lymphadenopathy, supple and no JVD Resp normal respiratory effort and clear to auscultation bilaterally Cardio regular rate, regular rhythm and no murmurs GI normal to inspection, nondistended, normoactive bowel sounds and non-tender Palpation: soft Back/Spine no CVA tenderness and normal ROM Extremity Extremity Narrative: Patient has swelling over the lateral midfoot. There is some increased warmth slight erythema. Skin is tender to palpation. No deformities. I do not appreciate any fire engine red skin or lymphangitic streaking. There is a lot of dry skin but no obvious breaks in the skin in the area. General Extremety ED: Negative for edema General Extremity: Negative for edema Neuro oriented x3 and CN's II-XII intact bilaterally Sensorium / Orientation: alert Motor Exam: strength 5/5 throughout Psych mental status grossly normal Mood & Affect: Negative for depressed or tearful Skin no rashes or lesions noted and no wounds MDM MDM MDM Narrative Medical decision making narrative: Differential diagnosis includes gout pseudogout trauma Clinically the patient has had gout in this area before. He has done well with prednisone. I think it is reasonable to trial a course of steroids and pain medication. Return if not improving or worsening. Patient is comfortable with this plan History & Record Review Discussion w/independent historian: Patient Discharge Plan Triage Chief Complaint: Lower Extremity Injury ED Provider: Behzad Rivera Dx/Rx/DC Orders Prescriptions: No Action allopurinol 100 mg tablet 100 mg PO BID potassium citrate 10 mEq (1,080 mg) tablet extended release 10 meq PO BID ezetimibe [Zetia] 10 mg tablet 10 mg PO DAILY Qty: 90 3RF nitroglycerin 0.4 mg tablet, sublingual 0.4 mg sublingual Q5M PRN Rx Instructions: do not exceed 3 doses per episode sildenafil 25 mg tablet PO PRN Patient Comments: TAKE 1 OR 2 TABLETS BY MOUTH 1 HOUR BEFORE SEXAUL ACTIVITY. DO NO... (REFER TO PRESCRIPTION NOTES). amlodipine 5 mg tablet 5 mg PO DAILY Qty: 90 3RF spironolacton-hydrochlorothiaz 25-25 mg tablet 1 tab PO DAILY Qty: 90 3RF Eliquis 5 mg tablet 5 mg PO BID Qty: 180 3RF Primary Care Provider: Aly Cornejo Referrals: Aly Cornejo DO [Primary Care Provider] - Print Language: Latvian
== END 2024-07-02 10:39 | disposition home or self-care (01) ==
LOC: ED 10:28
PROVIDERS: Emergency Provider Emergency Medicine; PCP Student in an Organized Health Care Education/Training Program; Visit Provider Emergency Medicine
DX: M79.671 Pain in right foot (principal); I25.10 Atherosclerotic heart disease of native coronary artery without angina pectoris; I10 Essential (primary) hypertension; E78.5 Hyperlipidemia, unspecified; Z87.891 Personal history of nicotine dependence; E66.9 Obesity, unspecified; G47.33 Obstructive sleep apnea (adult) (pediatric); Z87.442 Personal history of urinary calculi
CPT/HCPCS: 99282

== ENCOUNTER → 2024-10-07 | Outpatient (CLI) | payer MEDICARE, SELFPAY ==
[2024-10-07 09:05] LABS: Platelet Count 227 K/mm3 (150-450)
[2024-10-07 09:23] LABS: International Normalized Ratio 1.1; Prothrombin Time (Protime)PT. 14.2 SECONDS (11.7-14.9)
[2024-10-07 09:24] LABS: Partial Thromboplast Time 32.2 Seconds (24.1-36.2)
== END | disposition home or self-care (01) ==
PROVIDERS: PCP Student in an Organized Health Care Education/Training Program; Referring Provider Nurse Practitioner Acute Care; Visit Provider Nurse Practitioner Acute Care
DX: I48.91 Unspecified atrial fibrillation (principal); R06.00 Dyspnea, unspecified
CPT/HCPCS: 36415; 85049; 85610; 85730

== ENCOUNTER → 2024-10-15 | Outpatient (CLI) | payer MEDICARE, SELFPAY ==
--- NOTE | 2024-10-15 10:30 | PET_ITS ---
EXAM: PET-CT skull base to mid thigh CLINICAL HISTORY: Solitary lung nodule, chest CT on February 24, 2023 noted stable pleural or juxtapleural medial right lower lobe pulmonary nodule. Repeat scan August 14, 2023 showed 1.2 cm medial right lower lobe nodule concluded there has been slight interval growth since the October 28, 2022 exam COMPARISON: Correlation is made with the reports from previous chest CTs and previous PET. The. The prior images were not available for comparison. TECHNIQUE: Agent: F 18 fluorodeoxyglucose Dose: 9.055 mCi Prior to the administration of the radiotracer blood glucose was found to be [address] images for attenuation correction and anatomic localization followed by PET images from the skull base to the thighs were obtained. No previous PET exams for of the are available for comparison. FINDINGS: Neck: There is scant normal uptake within the soft tissues of the neck and glandular structures without focal areas of abnormal hypermetabolism. Chest: No abnormal uptake in the chest. On the CT PET images the nodule was not visible, but there was no significant abnormal increased metabolism to suggest malignancy. Abdomen/pelvis: There is normal distribution of the radiotracer within the gastrointestinal and genitourinary system. Skeletal: No hypermetabolic lesions identified within the axial and appendicular skeleton. PET/PET/CT Tumor Base -Thigh Init IMPRESSION: No abnormal hypermetabolic uptake. Reading [facility]
== END | disposition home or self-care (01) ==
PROVIDERS: PCP Student in an Organized Health Care Education/Training Program; Referring Provider Nurse Practitioner Acute Care; Visit Provider Nurse Practitioner Acute Care
DX: R91.8 Other nonspecific abnormal finding of lung field (principal); R91.1 Solitary pulmonary nodule
CPT/HCPCS: 78815; A9552

== ENCOUNTER → 2024-10-30 | Outpatient (CLI) | payer MEDICARE, SELFPAY | END | disposition home or self-care (01) | LOC: PSN 06:22 | PROVIDERS: PCP Student in an Organized Health Care Education/Training Program; Referring Provider Nurse Practitioner Acute Care; Visit Provider Nurse Practitioner Acute Care | DX: R06.00 Dyspnea, unspecified (principal) | CPT/HCPCS: 94060; 94726; 94729 ==

== ENCOUNTER → 2024-12-19 | Outpatient (CLI) | payer MEDICARE, SELFPAY ==
--- OUTSIDE RECORDS SUMMARY | 2024-12-19 08:14 | XMS RPT_ITS | CCD ---
Author Organization [facility]iniSy[facility] Care Team Providers Care Hadoop Software Engineer Name Role Phone MANASA ZENDEJAS DO Primary Care Physician [phone] Dr. Manasa Zendejas Primary Care Provider [phone] Dr. Manasa Zendejas Referring Provider [phone] Dr. Cale Ron Attending Provider [phone] Sara HARDING, SUPERVISOR RESIDENTIAL-C Cathy Attending Provider [phone] Dr. Manasa Zendejas Primary Care Provider 1([facility]) Dr. Manasa Zendejas Referring Provider 1([facility])2014 Luis HARDING, MIKAYLA Jones Attending Provider Dr. Manasa Zendejas Other Provider Unavailable Dr. Byron Lora Attending Provider [phone] Dr. Mark Grajeda Attending Provider [phone] Dr. Manasa Zendejas Primary Care Provider [phone] Dr. Mark Grajeda Attending Provider [phone] Jeovanny DORAN, [place] Melissa Blue Referring Provider Melissa Mcintosh Attending Provider Unavailable Dr. Manasa Zendejas Referring Provider [phone] Robert SUPERVISOR RESIDENTIAL, SUPERVISOR RESIDENTIAL-C Anna Varma Attending Provider [phone] Dr. Manasa Zendejas Primary Care Provider [phone] Dr. Manasa Zendejas Referring Provider 1([facility])2014 Robert SUPERVISOR RESIDENTIAL, SUPERVISOR RESIDENTIAL-C Anna Varma Attending Provider [phone] GOKUL VALENZUELA Attending Unavailab le MANASA ZENDEJAS DO Primary Care Unavailable KRYSTYNA MANZANO Attending Unavailable MANASA ZENDEJAS DO Primary Care Unavailable MANASA ZENDEJAS DO Attending Unavailable MANASA ZENDEJAS DO Primary Care Unavailable HALKO DO, MANASA Attending Unavailable HALKO DO, MANASA Primary Care Unavailable HALKO DO, MANASA Attending Unavailable HALKO DO, MANASA Primary Care Unavailable RICKEY HUNG MD Attending Unavail able HALKO DO, MANASA Primary Care Unavailable SOLO MAGAZINE GRINDER LOADER-PROJECT ADMIN, MARCOS Cohn Attending Unavai lable HALKO DO, MANASA Primary Care Unavailable HALKO DO, MANASA Primary Care Unavailable SUHAIL MAGAZINE GRINDER LOADER-STENCILING MACHINE TENDER, GOKUL Attending Unavailab le RICKEY HUNG MD Attending Unavail able HALKO DO, MANASA Primary Care Unavailable RICKEY HUNG MD Attending Unavail able HALKO DO, MANASA Primary Care Unavailable SOLO MAGAZINE GRINDER LOADER-PROJECT ADMIN, MARCOS Cohn Attending Zaina collins HALKO DO, MANASA Primary Care Unavailable Cristiana DUBOIS, Dr. Lu Primary Care Provider Dr. Manasa Zendejas DO Referring Provider Sara SUPERVISOR RESIDENTIAL-C, Cathy Attending Provider Nicole DUBOIS, Dr. Wen Attending Provider Dr. Behzad Rivera DO Emergency Provider Sara SUPERVISOR RESIDENTIAL-C, Cathy Referring Provider Cristiana DUBOIS, Dr. Lu Primary Care Provider Dr. Manasa Zendejas DO Referring Provider Sara SUPERVISOR RESIDENTIAL-C, Cahty Attending Provider Cristiana DUBOIS, Dr. Lu Primary Care Provider CRISTIANA DO, MANASA Attending Unavailable HALKO DO, MANASA Primary Care Unavailable HALKO DO, MANASA Attending Unavailable HALKO DO, MANASA Primary Care Unavailable HALKO DO, MANASA Primary Care Unavailable HALKO DO, MANASA Attending Unavailable Halko, Manasa Primary Care Unavailable Ruiz SUPERVISOR RESIDENTIAL, Cathy Attending Unavailable Ruiz SUPERVISOR RESIDENTIAL, Cathy Referring Unavailable Ruiz SUPERVISOR RESIDENTIAL, Cathy Attending Unavailable Ruiz SUPERVISOR RESIDENTIAL, Cathy Referring Unavailable Halko, Manasa Primary Care Unavailable Ruiz SUPERVISOR RESIDENTIAL, Cathy Attending Unavailable Ruiz SUPERVISOR RESIDENTIAL, Cathy Referring Unavailable Halko, Manasa Primary Care Unavailable Behzad Rivera Attending Unavailable Halko, Manasa Primary Care Unavailable Ruiz SUPERVISOR RESIDENTIAL, Cathy Referring Unavailable Ruiz SUPERVISOR RESIDENTIAL, Cathy Attending Unavailable Halko, Manasa Primary Care Unavailable Halko, Manasa Primary Care Unavailable Ruiz SUPERVISOR RESIDENTIAL, Cathy Attending Unavailable Halko, Manasa Referring Unavailable Ruiz SUPERVISOR RESIDENTIAL, Cathy Attending Unavailable Halko, Manasa Referring Unavailable Halko, Manasa Primary Care Unavailable Cale Ron Attending Unavailable Halko, Manasa Primary Care Unavailable KennDonn Attending Unavailable Halko, Manasa Primary Care Unavailable Luis SUPERVISOR RESIDENTIAL, Karen Attending Unavailable Sara SUPERVISOR RESIDENTIAL, Cathy Attending Unavailable Halko, Manasa Referring Unavailable Halko, Manasa Primary Care Unavailable KennDonn Attending Unavailable Halko, Manasa Primary Care Unavailable Halko, Manasa Referring Unavailable Halko, Manasa Primary Care Unavailable Sara HARDING, Cathy Attending Unavailable Halko, Manasa Referring Unavailable Kenn, Donn Attending Unavailable Kenn, Donn Referring Unavailable Halko, Manasa Primary Care Unavailable NAGI MAGAZINE GRINDER LOADER-STENCILING MACHINE TENDER, JESUS Attending Unavailab le HALKO DO, MANASA Primary Care Unavailable HALKO DO, MANASA Primary Care Unavailable RICKEY HUNG MD Attending Unavail able NAGI MAGAZINE GRINDER LOADER-STENCILING MACHINE TENDER, JESUS Attending Unavailab le HALKO DO, MANASA Primary Care Unavailable HALKO DO, MANASA Primary Care Unavailable RICKEY HUNG MD Attending Unavail able RICKEY HUNG MD Attending Unavail able HALKO DO, MANASA Primary Care Unavailable NAGI MAGAZINE GRINDER LOADER-STENCILING MACHINE TENDER, JESUS Attending Unavailab le HALKO DO, MANASA Primary Care Unavailable Allergies Allergy Classification Reported Allergen(s) Allergy Type Date of Onset Reaction(s) Facility (20 sources) Betaxolol; Translations: [betaxolol] Drug Allergy Low heart rate [facility][1] Pain Management (20 sources) cloNIDine; Translations: [clonidine] Drug Allergy 2 Unknown (qualifier value) [facility][1] Pain Management Comment on above: heart rate low (20 sources) Lisinopril; Translations: [lisinopril] Drug Allergy 2 Angioedema (disorder) [facility][1] Pain Management (20 sources) rosuvastatin; Translations: [rosuvastatin] Drug Allergy 2 severe myalgias, Myalgia [facility][1] Pain Management (9 sources) Adrenergic Beta-Antagonists Allergy to substance 2 HEART RATE DROPS VERY LOW [facility] (9 sources) Angiotensin Converting Enzyme (Vickie) Inhibitors Allergy to substance 2 Angioedema [facility] (9 sources) Simvastatin Drug Allergy 2 myalgia [facility] (1 source) Adrenergic Beta-Antagonists Drug allergy (disorder) 5 [facility] (1 source) Angiotensin Converting Enzyme (Vickie) Inhibitors Drug allergy (disorder) 5 [facility] (1 source) cloNIDine Drug Allergy 5 [facility] (1 source) Lisinopril Drug Allergy 5 [facility] (1 source) rosuvastatin Drug Allergy 5 [facility] (1 source) Simvastatin Drug Allergy 5 [facility] Medications Current Medications Medication Drug Class(es) Dates Sig (Normalized) Sig (Original) amLODIPine 5 mg oral tablet (20 sources) Dihydropyridine Calcium Channel Ke Start: 09-23-2015 End: 02-10-2025 amLODIPine 5 mg oral tablet Dose : 5 mg = 1 tab(s), Oral, qDay, # 90 tab(s), 1 Refill(s), Pharmacy: [facility], 168, cm, 08/14/24 9:37:00 EST, Height, kg, 08/14/24 9:37:00 EST, Dosing Weight Start Date: 08/14/24 Stop Date: 02/10/25 Status: Ordered Quantity: 90.0 Unit: tab(s) Repeat number: 2 Start: 09-04-2013 End: 09-23-2015 take 2 tablets by mouth once daily Amlodipine 5 MG tablet Discontinued 10 mg PO DAILY September 04, 2013 1:11pm September 23, 2015 4:14pm Start: 09-04-2013 End: 09-23-2015 take 10 mg by mouth once daily Amlodipine Discontinued 10 MG PO DAILY September 04, 2013 1:11pm September 23, 2015 4:14pm Start: 08-19-2013 End: 09-04-2013 take 1 tablet by mouth once daily Amlodipine 5 MG tablet Discontinued 5 mg PO DAILY August 19, 2013 1:00am September 04, 2013 1:11pm amoxicillin 875 mg / clavulanate 125 mg oral tablet (1 source) Penicillin-class Antibacterial Start: 08-11-2023 End: 08-21-2023 take 1 tablet by mouth every twelve hours amoxicillin-clavulanate 875 mg-125 mg oral tablet 1 tab(s), Oral, q12h, X 10 day(s), # 20 tab(s), 0 Refill(s), 08/21/23 10:40:00 AM EST, [facility]: [id number], 167, cm, 08/11/23 10:08:00 EST, Height, 122.2, kg, 08/11/23 10:08:00 EST, Dosing Weight Start Date: 08/11/23 Stop Date: 08/21/23 Status: Ordered apixaban 5 mg oral tablet (20 sources) Factor Xa Inhibitor Start: 06-22-2022 Eliquis 5 mg oral tablet Dose : 5 mg = 1 tab(s), Oral, BID, # 180 tab(s), 3 Refill(s), Pharmacy: [facility], 167, cm, 08/11/23 10:08:00 EST, Height, 122.2, kg, 08/11/23 10:08:00 EST, Dosing Weight Start Date: 08/11/23 Status: Ordered Quantity: 180.0 Unit: tab(s) Repeat number: 4 ezetimibe 10 mg oral tablet (20 sources) Dietary Cholesterol Absorption Inhibitor Start: 01-06-2021 End: 02-10-2025 Zetia 10 mg oral tablet Dose : 10 mg = 1 tab(s), Oral, Daily, # 90 tab(s), 1 Refill(s), Pharmacy: [facility], 168, cm, 08/14/24 9:37:00 EST, Height, kg, 08/14/24 9:37:00 EST, Dosing Weight Start Date: 08/14/24 Stop Date: 02/10/25 Status: Ordered Quantity: 90.0 Unit: tab(s) Repeat number: 2 hydroCHLOROthiazide 25 mg / spironolactone 25 mg oral tablet (20 sources) Thiazide Diuretic, Aldosterone Antagonist Start: 08-14-2024 End: 02-10-2025 take 1 tablet by mouth once daily hydrochlorothiazide-kash nolactone 25 mg-25 mg oral tablet Dose = 1 tab(s), Oral, Daily, # 90 tab(s), 1 Refill(s), Pharmacy: [facility], 168, cm, 08/14/24 9:37:00 EST, Height, kg, 08/14/24 9:37:00 EST, Dosing Weight Start Date: 08/14/24 Stop Date: 02/10/25 Status: Ordered Quantity: 90.0 Unit: tab(s) Repeat number: 2 Start: 02-09-2024 End: 08-07-2024 take 1 tablet by mouth once daily hydrochlorothiazide-spironolactone 25 mg -25 mg oral tablet Dose = 1 tab(s), Oral, Daily, # 90 tab(s), 1 Refill(s), Pharmacy: [facility], 167, cm, 02/09/24 8:51:00 EDT, Height, kg, 02/09/24 8:41:00 EDT, Dosing Weight Start Date: 02/09/24 Stop Date: 08/07/24 Status: Ordered Start: 09-23-2015 End: 02-07-2024 take 1 tablet by mouth once daily Spironolacton-Hydrochlorothiaz 25-25 mg tablet Discontinued 1 {tbl} PO DAILY November 29, 2019 3:34pm January 06, 2021 3:05pm Start: 09-23-2015 End: 03-04-2022 take 1 tablet by mouth once daily Spironolacton-Hydrochlorothiaz Discontin ued 1 TABLET PO DAILY November 29, 2019 3:34pm January 06, 2021 3:05pm nitroglycerin 0.4 mg sublingual tablet (20 sources) Nitrate Vasodilator Start: 09-12-2022 Nitroglyce rin 0.4 mg tablet, sublingual Active 0.4 mg SL Q5M as needed September 12, 2022 1:00am do not exceed 3 doses per episode Start: 09-12-2022 Nitroglycerin Active 0.4 MG SL Q5M September 12, 2022 1:00am do not exceed 3 doses per episode Start: 05-19-2022 End: 08-17-2022 nitroglycerin 0.4 mg subling ual tablet 0.4 mg Dose = 1 tab(s), Sublingual, q5min, PRN for chest pain, not to exceed 3 doses/15 min--if pain persists, seek medical attention, # 100 tab(s), 0 Refill(s), Pharmacy: [facility], 167, cm, 05/19/22 11:15:00 EST, Height Start Date: 05/19/22 Stop Date: 08/17/22 Status: Ordered Quantity: 100.0 Unit: tab(s) Repeat number: 1 pantoprazole 40 mg delayed release oral tablet (1 source) Proton Pump Inhibitor Start: 11-10-2022 pantoprazole 40 mg oral enteric coated tablet Dose : 40 mg = 1 tab(s), Oral, qDay, # 30 tab(s), 0 Refill(s), [facility]acy: [id number], 167.6, cm, 11/10/22 6:22:00 EDT, Height Start Date: 11/10/22 Status: Ordered potassium citrate 15 meq extended release oral tablet (20 sources) Start: 10-07-2024 take 1 tablet by mouth once daily Potassium Citrate 15 mEq tablet extended release Active 15 meq PO daily October 07, 2024 12:00am Start: 01-27-2022 End: 10-07-2024 take 1 tablet by mouth twice daily Potassium Citrate 10 mEq (1,080 mg) tablet extended release Discontinued 10 meq PO TWICE A DAY January 27, 2022 7:09am October 07, 2024 8:13am Start: 12-04-2020 End: 01-27-2022 take 1 tablet by mouth three times daily Potassium Citrate 10 mEq (1,080 mg) tablet extended release Discontinued 10 meq PO THREE TIMES A DAY December 04, 2020 12:00am January 27, 2022 7:09am Start: 06-27-2019 End: 08-06-2019 Potassium Citrate (Urocit-K 15) 15 mEq tablet extended release Discontinued 15 meq PO .QOTHERDAY June 27, 2019 1:00am August 06, 2019 10:45am Start: 06-25-2019 End: 08-06-2019 take 1 tablet by mouth twice daily potassium citrate 15 mEq oral tablet, extended release See Instructions, 1 tab(s) Oral BID, 0 Refill(s) Start Date: 06/25/19 Status: Ordered Repeat number: 1 sildenafil 25 mg oral tablet (12 sources) Phosphodiesterase 5 Inhibitor Start: 09-12-2023 Sildenafil 25 mg tablet Active mg PO as needed September 12, 2023 1:00am Start: 08-11-2023 End: 09-10-2023 sildenafil 25 mg oral tablet Dose : 50 mg = 2 tab(s), Oral, qDay, PRN as needed for erectile dysfunction, tart with one tablet, may use 2 tablets prn 1 hour before sexual activity do not take nitroglycerin within 24 hours of using, # 30 tab(s), 0 Refill(s), [facility]: [id number], 167, cm, 08/11/23 10:08:00 EST, Height, kg, 08/11/23 10:08:00 EST, Dosing Weight Start Date: 08/11/23 Stop Date: 09/10/23 Status: Ordered Quantity: 30.0 Unit: tab(s) Repeat number: 1 silver sulfADIAZINE 10 mg/ml topical cream (1 source) Sulfonamide Antibacterial Start: 11-20-2024 silver sulfADIAZINE 1% topical cream Apply 1 mali, Topical, BID, # 30 gram(s), 0 Refill(s), Pharmacy: [facility], Cream, 166, cm, 11/20/24 9:50:00 EDT, Height, 133.3, kg, 11/20/24 9:50:00 EDT, Dosing Weight Start Date: 11/20/24 Status: Ordered Quantity: 30.0 Unit: g Repeat number: 1 terbinafine hydrochloride 10 mg/ml topical cream (7 sources) Allylamine Antifungal Start: 10-07-2024 Terbinaf ine Hcl 1 % cream Active [facility] TOPICAL October 07, 2024 12:00am Start: 08-14-2024 End: 10-09-2024 terbinafine 1% topical cream Apply 1 mali, Topical, BID, # 30 gram(s), 1 Refill(s), Pharmacy: [facility], Cream, 168, cm, 08/14/24 9:37:00 EST, Height, 132.8, kg, 08/14/24 9:37:00 EST, Dosing Weight Start Date: 08/14/24 Stop Date: 10/09/24 Status: Ordered Quantity: 30.0 Unit: g Repeat number: 2 Completed/Discontinued Medications Medication Drug Class(es) Dates Sig (Normalized) Sig (Original) acetaminophen 325 mg / HYDROcodone bitartrate 5 mg oral tablet (20 sources) Opioid Agonist Start: 12-23-2018 End: 06-27-2019 Hydrocodone-Acetami nophen 1 EACH tablet Discontinued 1 NMA PO EVERY 6 HOURS as needed for Pain December 23, 2018 12:00am June 27, 2019 3:06pm Start: 12-23-2018 End: 06-27-2019 Hydrocodone-Acetaminophen Di scontinued 1 EACH PO EVERY 6 HOURS December 23, 2018 12:00am June 27, 2019 3:06pm Start: 12-21-2018 End: 12-23-2018 Hydrocodone-Acetaminophen 1 TABLET tablet Discontinued 1 {tbl} PO EVERY 4 HOURS NEEDED as needed for Pain 10 2 December 21, 2018 12:00am December 22, 2018 12:00am December 23, 2018 12:08am Start: 12-21-2018 End: 12-23-2018 take 1 tablet by mouth every four hours as needed Hydrocodone-Acetaminophen Discontinued 1 TABLET PO EVERY 4 HOURS NEEDED 10 2 December 21, 2018 12:00am December 23, 2018 12:08am Start: 02-22-2017 End: 11-29-2017 Hydrocodone-Acetaminophen 1 TABLET tablet Discontinued 1 - 2 {tbl} PO EVERY 4 HOURS NEEDED as needed for Pain February 22, 2017 12:00am November 29, 2017 3:57pm Start: 02-22-2017 End: 11-29-2017 take 1 tablet by mouth every four hours as needed Hydrocodone-Acetaminophen Discontinued 1 - 2 TABLET PO EVERY 4 HOURS NEEDED February 22, 2017 12:00am November 29, 2017 3:57pm acetaminophen 325 mg / oxyCODONE hydrochloride 5 mg oral tablet (12 sources) Opioid Agonist Start: 07-02-2024 End: 10-07-2024 Oxycodone-Acetaminophen (Percocet) 5-325 mg tablet Discontinued 1 {tbl} PO EVERY 6 HOURS as needed for pain 12 July 02, 2024 October 07, 2024 8:13am Start: 02-25-2017 End: 11-29-2017 Oxycodone-Acetaminophen 1 EA CH tablet Discontinued 1 NMA PO EVERY 6 HOURS NEEDED as needed for flank pain February 25, 2017 3:39pm November 29, 2017 3:57pm Start: 02-25-2017 End: 11-29-2017 Oxycodone-Acetaminophen Disc ontinued 1 EACH PO EVERY 6 HOURS NEEDED February 25, 2017 3:39pm November 29, 2017 3:57pm allopurinol 100 mg oral tablet (20 sources) Xanthine Oxidase Inhibitor Start: 05-20-2020 End: 08-07-2024 allopurinol 100 mg oral tablet Dose : 100 mg = 1 tab(s), Oral, BID, # 180 tab(s), 1 Refill(s), Pharmacy: [facility], 167, cm, 02/09/24 8:51:00 EDT, Height, kg, 02/09/24 8:41:00 EDT, Dosing Weight Start Date: 02/09/24 Stop Date: 08/07/24 Status: Ordered Quantity: 180.0 Unit: tab(s) Repeat number: 2 aspirin 81 mg delayed release oral tablet (16 sources) Platelet Aggregation Inhibitor, Nonsteroidal Anti-inflammatory Drug Start: 11-18-2015 End: 11-01-2022 take 1 tablet by mouth once daily Aspirin 81 MG tablet,delayed release (DR/EC) Discontinued 81 mg PO DAILY November 18, 2015 12:00am November 01, 2022 9:35am cephalexin 500 mg oral capsule (9 sources) Cephalosporin Antibacterial Start: 05-17-2022 End: 05-26-2022 take 1 capsule by mouth three times daily Cephalexin 500 mg capsule Discontinued 500 mg PO THREE TIMES A DAY 27 01May 17, 2022 1:00am May 26, 2022 11:31am hydroCHLOROthiazide 12.5 mg / lisinopril 20 mg oral tablet (9 sources) Thiazide Diuretic, Angiotensin Converting Enzyme Inhibitor Start: 08-19-2013 End: 09-04-2013 take 1 tablet by mouth twice daily Lisinopril/[place] chlorothiazide (Zestoretic 20/12.5 Tablet) 1 TABLET tablet Discontinued 1 {tbl} PO TWICE A DAY August 19, 2013 1:00am September 04, 2013 1:09pm ibuprofen 600 mg oral tablet (9 sources) Nonsteroidal Anti-inflammatory Drug Start: 08-19-2013 End: 09-04-2013 take 1 tablet by mouth every eight hours as needed for pain Ibuprofen 600 MG tablet Discontinued 600 mg PO EVERY 8 HOURS NEEDED as needed for Pain August 19, 2013 1:00am September 04, 2013 1:09pm metoprolol tartrate 25 mg oral tablet (5 sources) beta-Adrenergic Ke Start: 07-18-2022 End: 07-27-2022 Metoprolol Tartrate 25 mg tablet Discontinued 12.5 mg PO DAILY July 18, 2022 1:00am July 27, 2022 3:06pm Start: 07-18-2022 End: 07-27-2022 take 12.5 mg by mouth once daily Metoprolol Tartrate Discontinued 12.5 MG PO DAILY July 18, 2022 1:00am July 27, 2022 3:06pm naproxen 500 mg oral tablet (9 sources) Nonsteroidal Anti-inflammatory Drug Start: 02-25-2017 End: 11-29-2017 take 1 tablet by mouth twice daily Naproxen 500 MG tablet Discontinued 500 mg PO TWICE A DAY February 25, 2017 12:00am November 29, 2017 3:57pm ondansetron 4 mg disintegrating oral tablet (18 sources) Serotonin-3 Receptor Antagonist Start: 12-21-2018 End: 06-27-2019 take 1 tablet by mouth every eight hours as needed for nausea Ondansetron 4 MG tablet Discontinued 4 mg PO EVERY 8 HOURS NEEDED as needed for Nausea December 21, 2018 12:00am June 27, 2019 3:06pm Start: 02-22-2017 End: 11-29-2017 take 1 tablet by mouth every eight hours as needed for nausea Ondansetron 4 MG tablet Discontinued 4 mg PO EVERY 8 HOURS NEEDED as needed for Nausea February 22, 2017 12:00am November 29, 2017 3:57pm predniSONE 20 mg oral tablet (3 sources) Start: 07-02-2024 End: 10-07-2024 take 3 tablets by mouth once daily Prednisone 20 mg tablet Discontinued 60 mg PO DAILY July 02, 2024 1:00am October 07, 2024 8:13am rosuvastatin calcium 10 mg oral tablet (9 sources) HMG-CoA Reductase Inhibitor Start: 12-04-2019 End: 12-09-2020 take 1 tablet by mouth once daily Rosuvastatin (Crestor) 10 mg tablet Discontinued 10 mg PO DAILY December 04, 2019 12:00am December 09, 2020 4:11pm simvastatin 20 mg oral tablet (20 sources) HMG-CoA Reductase Inhibitor Start: 04-16-2019 End: 12-04-2019 take 1 tablet by mouth once daily Simvastatin 20 mg tablet Discontinued 20 mg PO DAILY 90 October 23, 2019 2:02pm December 04, 2019 6:01pm Start: 06-07-2018 End: 04-16-2019 take 1 tablet by mouth at bedtime Simvastatin 40 mg tablet Discontinued 40 mg PO AT BEDTIME December 04, 2018 1:06pm April 16, 2019 8:49am Start: 02-22-2017 End: 06-07-2018 take 1 tablet by mouth once daily Simvastatin 20 mg tablet Discontinued 20 mg PO DAILY December 07, 2017 1:26pm June 07, 2018 2:16pm tamsulosin hydrochloride 0.4 mg oral capsule (9 sources) alpha-Adrenergic Ke Start: 02-22-2017 End: 12-07-2017 take 1 capsule by mouth once daily Tamsulosin 0.4 MG capsule Discontinued 0.4 mg PO DAILY February 22, 2017 12:00am December 07, 2017 1:22pm Problems Active Problems Problem Classification Problem Date Documented Date Episodic/Chronic Abdominal pain (5 sources) Right flank pain; Translations: [Unspecified abdominal pain] 10-16-2022 Episodic Aortic; peripheral; and visceral artery aneurysms (8 sources) Aortic root dilatation 08-16-2023 Chronic Calculus of urinary tract (20 sources) Kidney stone; Translations: [Renal colic] 12-24-2019 Episodic Comment on above: uric acid stones Cardiac dysrhythmias (20 sources) Multiple premature ventricular complexes; Translations: [Ventricular premature depolarization] Onset: 4 Chronic Comment on above: S/p ablation for atr ial fibrillation and flutter on 11/10/2022 at [facility]; Coagulation and hemorrhagic disorders (15 sources) Hypercoagulability state 02-08-2023 Chronic Coronary atherosclerosis and other heart disease (20 sources) Coronary arteriosclerosis; Translations: [Old myocardial infarction] Onset: 2 06-25-2019 Chronic Comment on above: Non obstructive CAD Disorders of lipid metabolism (20 sources) Hyperlipidemia; Translations: [Hyperlipidemia, unspecified] 06-25-2019 Chronic Essential hypertension (20 sources) Hypertensive disorder; Translations: [Essential (primary) hypertension] Onset: 4 06-25-2019 Chronic Glaucoma (6 sources) Glaucoma 02-09-2024 Chronic Gout and other crystal arthropathies (20 sources) Gout; Translations: [Acute gout] 12-24-2019 Chronic Hypertension with complications and secondary hypertension (17 sources) Hypertensive heart disease without congestive heart failure; Translations: [Hypertensive heart disease without heart failure] Onset: 5 11-16-2022 Chronic Immunizations and screening for infectious disease (3 sources) Patient encounter status; Translations: [Encounter for immunization] 06-21-2024 Episodic Nonspecific chest pain (20 sources) Chest pain; Translations: [Chest pain, unspecified] 05-19-2022 Episodic Osteoarthritis (20 sources) Osteoarthritis 06-25-2019 Chronic Other acquired deformities (20 sources) Lumbar spondylolisthesis; Translations: [Spondylolisthesis, lumbar region] Onset: 3 02-11-2022 Episodic Other aftercare (6 sources) Long-term current use of anticoagulant; Translations: [intermediate (current) use of anticoagulants] Onset: 3 Episodic Other aftercare (1 source) terminal makeup operator (current) use of anticoagulants; Translations: [intermediate (current) use of anticoagulants] Onset: 5 Episodic Other and ill-defined heart disease (6 sources) Left ventricular hypertrophy 02-01-2024 Chronic Other circulatory disease (9 sources) Abnormal peripheral pulse; Translations: [Other specified symptoms and signs involving the circulatory and respiratory systems] 09-29-2021 Episodic Other circulatory disease (18 sources) H/O: atrial fibrillation; Translations: [Personal history of other diseases of the circulatory system] 11-16-2022 Episodic Other connective tissue disease (15 sources) Myalgia caused by statin 11-16-2022 Episodic Other injuries and conditions due to external causes (20 sources) At low risk for fall 10-20-2021 Episodic Other lower respiratory disease (10 sources) Dyspnea; Translations: [Dyspnea, unspecified] 01-06-2021 Episodic Other lower respiratory disease (4 sources) Dyspnea, unspecified; Translations: [Other respiratory abnormalities] Onset: 5 Episodic Other lower respiratory disease (16 sources) Nodule of lung 11-06-2022 Episodic Comment on above: 10 mm Right medial l ower lung/subpleural 11/04/22 Other lower respiratory disease (8 sources) Solitary nodule of lung; Translations: [Solitary pulmonary nodule] 10-07-2024 Episodic Comment on above: 1.2 cm RLL Other lower respiratory disease (1 source) Other nonspecific abnormal finding of lung field; Translations: [Other nonspecific abnormal finding of lung field] Onset: 5 Episodic Other male genital disorders (9 sources) Impotence 08-11-2023 Chronic Other nervous system disorders (20 sources) Neurogenic claudication 12-22-2021 Episodic Other nutritional; endocrine; and metabolic disorders (20 sources) Body mass index 40+ - severely obese 10-20-2021 Chronic Other nutritional; endocrine; and metabolic disorders (20 sources) Morbid obesity; Translations: [Morbid (severe) obesity due to excess calories] Onset: 2 06-25-2019 Chronic Other nutritional; endocrine; and metabolic disorders (9 sources) Obesity; Translations: [Obesity, unspecified] 08-06-2019 Chronic Other nutritional; endocrine; and metabolic disorders (5 sources) Obesity, unspecified; Translations: [Obesity, unspecified] Chronic Other screening for suspected conditions (not mental disorders or infectious disease) (20 sources) Raised prostate specific antigen; Translations: [Viral screening status] 12-09-2020 Episodic Other skin disorders (20 sources) Multiple actinic keratoses 12-24-2019 Episodic Peripheral and visceral atherosclerosis (20 sources) Intermittent claudication; Translations: [Atherosclerosis of aorta] 10-20-2021 Chronic Residual codes; unclassified (20 sources) Hypersomnia 08-05-2019 Chronic Residual codes; unclassified (20 sources) Obstructive sleep apnea syndrome; Translations: [Obstructive sleep apnea (adult) (pediatric)] 08-07-2019 Chronic Residual codes; unclassified (5 sources) Obstructive sleep apnea (adult) (pediatric); Translations: [Obstructive sleep apnea (adult)(pediatric)] Chronic Residual codes; unclassified (20 sources) H/O Spinal surgery 06-25-2019 Episodic Residual codes; unclassified (20 sources) Immunization due 04-24-2020 Episodic Residual codes; unclassified (20 sources) Past history of procedure 12-22-2021 Episodic Residual codes; unclassified (19 sources) Screening due 05-19-2022 Episodic Residual codes; unclassified (3 sources) Edema of lower extremity; Translations: [Localized edema] 12-28-2023 Episodic Screening and history of mental health and substance abuse codes (15 sources) Ex-smoker 02-08-2023 Episodic Skin and subcutaneous tissue infections (1 source) Cellulitis and abscess of lower limb 12-17-2024 Episodic Spondylosis; intervertebral disc disorders; other back problems (20 sources) Degeneration of lumbar intervertebral disc; Translations: [Lumbar post-laminectomy syndrome] Onset: 2 06-25-2019 Chronic Spondylosis; intervertebral disc disorders; other back problems (20 sources) Lumbar radiculopathy; Translations: [Spinal stenosis of lumbar region] Onset: 2 12-22-2021 Episodic Unclassified (20 sources) Medication refused 10-23-2020 Unclassified (20 sources) Patient encounter status 10-23-2020 Unclassified (4 sources) Statin not tolerated (context-dependent category) 05-19-2022 Unclassified (18 sources) Drug therapy finding 08-26-2022 Urinary tract infections (9 sources) Acute pyelonephritis; Translations: [Acute pyelonephritis] 05-25-2022 Episodic Past or Other Problems Problem Classification Problem Date Documented Da te Episodic/Chronic Cardiac dysrhythmias (20 sources) Sinus bradycardia; Translations: [Bradycardia, unspecified] Onset: 12-28-2023 11-29-2017 Episodic Malaise and fatigue (9 sources) Fatigue; Translations: [Other fatigue] Onset: 12-28-2023 09-12-2022 Episodic Other connective tissue disease (1 source) Other specified soft tissue disorders; Translations: [Other specified soft tissue disorders] Onset: 07-30-2024 Episodic Other lower respiratory disease (3 sources) Solitary pulmonary nodule; Translations: [Solitary pulmonary nodule] Onset: 08-14-2023 Episodic Results Test Name Value Interpretation Reference Range [facility] 11-20-2024 U Creatinine 87.0 mg/dL Normal 40.0-278.[address] [facility] Comment on above: Performed By: #### A DIFF, PSA, ANEU, CBC, A1C, GFR, CMP, URIC, LIPID #### [facility] [address] [place], [place] [address] #### HCV1 #### [facility] [address] [place] [address] U Microalb 6.0 mg/L Normal [facility] Comment on above: Performed By: #### A DIFF, PSA, ANEU, CBC, A1C, GFR, CMP, URIC, LIPID #### [place] [address] [place], [place] [address] #### HCV1 #### [facility] [address] [place] [address] U Ratio Alb/Cre 7 mg/G Normal 0-[address] [facility] Comment on above: Performed By: #### A DIFF, PSA, ANEU, CBC, A1C, GFR, CMP, URIC, LIPID #### [address] [place], [place] [address] #### HCV1 #### [facility] [address] [place] [address] Pulmonary Visit Reporton Pulmonary Visit Report [facility] Pulmonary Medicine of [address] [place] [address] OFFICE VISIT Date of Service: 10/25/24 MR#: [id number] Acct: [id number] Name: KRYSTYNA PADGETT Rep #: [id number] : 1955 Provider: MIKAYLA Ruiz Age/Sex: 69/M Location: [facility] Status: Signed Assessment and Plan Assessment and Plan (1) Lung nodule, solitary: Status: Chronic Comment: 1.2 cm RLL Plan: PET scan negative. I discussed this case with radiology, who did not feel that this area on the CTA was truly a nodule. The radiologist suggested that this was likely evidence of pulmonary hypertension or pulmonary arterial hypertension. This area has only been evident on contrasted CTs. It has never been present on diagnostic CT scans without contrast or PET scans. Once again, no evidence of hypermetabolic activity on this PET scan. (2) Morbid obesity: Status: Chronic Plan: Complicates exam, plan, care and prognosis. (3) Dyspnea: Status: Acute Qualifiers: Dyspnea type: dyspnea on exertion Qualified Code(s): R06.00 - Dyspnea, unspecified Plan: Performing a walking oximetry and a pulmonary function test to evaluate for possible pulmonary hypertension or exertional hypoxia. Most recent echocardiogram was not indicative of pulmonary hypertension as the right atrium was estimated to be normal size and PASP was 30 mmHg. If the PFT and 6-minute walk test are abnormal, we will likely proceed with autoimmune blood work order and potentially requesting a right heart catheterization. If test results are within normal range, these will be discussed further at his routine follow-up in December. (4) MARIELENA (obstructive sleep apnea): Status: Chronic Plan: Has been using and benefiting from PAP therapy. This was not addressed at today's office visit. No concerns. Orders: Orders PFT Complete - DLCO, Spirometry b/a bronchodilators, lung volumes 10/30/24 R06.00 - Dyspnea, unspecified Simple Pulmonary Exercise Test 11/28/24 R06.00 - Dyspnea, unspecified HPI 2 wk fu Chief Complaint: Test results HPI Comments Details: This patient presents to the office today to discuss test results. He is ambulatory and currently on room air. He has not recently been seen in the ED or urgent care for any respiratory illness. He has not required any antibiotics or prednisone for any breathing problems. He does have shortness of breath on exertion. He denies any cough, sputum production or hemoptysis. He denies any wheezing, chest tightness, chest pain or palpitations. He has not had any fever, chills or body aches. He continues complete smoking cessation. If you recall, this patient quit smoking decades ago. He was a very light smoker for a short period of time. Test results personally with patient: PET CT completed on October 15, 2024. Impression no abnormal hypermetabolic uptake. 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: [employer] Accompanied by: Self Allergies VICKIE Inhibitors Allergy (Severe, Verified 10/25/24 07:51) Angioedema Beta-Blockers (Beta-Adrenergic Bloc Allergy (Intermediate, Verified 10/25/24 07:51) HEART RATE DROPS VERY LOW clonidine Allergy (Verified 10/25/24 07:51) Other lisinopril Allergy (Verified 10/25/24 07:51) Angioedema simvastatin Adverse Reaction (Severe, Verified 10/25/24 07:51) myalgia rosuvastatin Adverse Reaction (Intermediate, Verified 10/25/24 07:51) Myalgia Medications ???Medication ???Instructions ???Recorded ???Confirmed ???Type allopurinol 100 mg tablet 100 mg PO BID 05/20/20 10/25/24 Hi story ezetimibe 10 mg tablet (Zetia) 10 mg PO DAILY #90 tabs 09/29/21 0 10/25/24 Rx amlodipine 5 mg tablet 5 mg PO DAILY blood pressure #90 0 03/04/22 10/25/24 Rx tabs spironolactone 25 1 tab PO DAILY htn #90 tabs 10/25/24 Rx mg-hydrochlorothiazide 25 mg tablet apixaban 5 mg tablet (Eliquis) 5 mg PO BID #180 tabs 06/22/22 Rx nitroglycerin 0.4 mg sublingual 0.4 mg sublingual Q5M PRN 09/12/22 10/25/24 History tablet sildenafil 25 mg tablet mg PO PRN 09/12/23 10/25/24 Histor y potassium citrate 15 mEq (1,620 15 meq PO QDAY 10/07/24 10/25/24 H istory mg) tablet,extended release terbinafine HCl 1 % topical cream applic topical 10/07/24 10/25/24 History Have you fallen in the past year?: No PFSH Medical History ... Normal [facility] Positron emission tomography scan reportOrdered By: Ryan Santana on 10-17-2024 PT Unspecified body region [facility] Imaging Services [address] [place] [address] PET/CT Tumor Base -Thigh Init MR#: [id number] Acct: [id number] Name: KRYSTYNA PADGETT Rep #: [id number] : 1955 M 69 From: Pet er Peer DO PCP: Dr. Manasa Zendejas, DO Status: REG CLI Study:PET/CT Tumor Base -Thigh Init Date of E xam: 10/15/24 Exam# [id number] Ordering Dr: Tejas Ruiz NP ADDENDUM by Dr. Ryan Santana DO on 10/17/24 at 1042 Previous PET exam images from 11/21/2023 are now available for comparison. The prior exam showed no abnormal right lung hypermetabolic focus. There has been no interval change. The current study shows no abnormal hypermetabolic focus in the right lung. Reading Location: [facility] 10/17/24 1042 Date cc: MIKAYLA Ruiz; Dr. Manasa Zendejas DO ~* Signed EXAM: PET-CT skull base to mid thigh CLINICAL HISTORY: Solitary lung nodule, chest CT on February 24, 2023 noted stable pleural or juxtapleural medial right lower lobe pulmonary nodule. Repeat scan August 14, 2023 showed 1.2 cm medial right lower lobe nodule concluded there has been slight interval growth since the October 28, 2022 exam COMPARISON: Correlation is made with the reports from previous chest CTs and previous PET. The. The prior images were not available for comparison. TECHNIQUE: Agent: F 18 fluorodeoxyglucose Dose: 9.055 mCi Prior to the administration of the radiotracer blood glucose was found to be [address] images for attenuation correction and anatomic localization followed by PET images from the skull base to the thighs were obtained. No previous PET exams for of the are available for comparison. FINDINGS: Neck: There is scant normal uptake within the soft tissues of the neck and glandular structures without focal areas of abnormal hypermetabolism. Chest: No abnormal uptake in the chest. On the CT PET images the nodule was not visible, but there was no significant abnormal increased metabolism to suggest malignancy. Abdomen/pelvis: There is normal distribution of the radiotracer within the gastrointestinal and genitourinary system. Skeletal: No hypermetabolic lesions identified within the axial and appendicular skeleton. PET/PET/CT Tumor Base -Thigh Init IMPRESSION: No abnormal hypermetabolic uptake. Reading Location: [facility] CC: MIKAYLA Ruiz; Dr. 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 Manasa Zendejas DO Status: REG CLI Study: PET/CT Tumor Base -Thigh Init Date of Exam: Exam# [id number] Ordering Dr: Cathy Ruiz NP ADDENDUM by Dr. Ryan Santana DO on 10/17/24 at 1042 Previous PET exam images from 11/21/2023 are now available for comparison. The prior exam showed no abnormal right lung hypermetabolic focus. There has been no interval change. The current study shows no abnormal hypermetabolic focus in the right lung. Reading Location: [facility] 10/17/24 1042 Date cc: MIKAYLA Ruiz; Dr. Manasa Zendejas DO * Signed EXAM: PET-CT skull base to mid thigh CLINICAL HISTORY: Solitary lung nodule, chest CT on February 24, 2023 noted stable pleural or juxtapleural medial right lower lobe pulmonary nodule. Repeat scan August 14, 2023 showed 1.2 cm medial right lower lobe nodule concluded there has been slight interval growth since the October 28, 2022 exam COMPARISON: Correlation is made with the reports from previous chest CTs and previous PET. The. The prior images were not available for comparison. TECHNIQUE: Agent: F 18 fluorodeoxyglucose Dose: 9.055 mCi Prior to the administration of the radiotracer blood glucose was found to be [address] images for attenuation correction and anatomic localization followed by PET images from the skull base to the thighs were obtained. No previous PET exams for of the are available for comparison. FINDINGS: Neck: There is scant normal uptake within the soft tissues of the neck and glandular structures without focal areas of abnormal hypermetabolism. Chest: No abnormal uptake in the chest. On the CT PET images the nodule was not visible, but there was no significant abnormal increased metabolism to suggest malignancy. Abdomen/pelvis: There is normal distribution of the radiotracer within the gastrointestinal and genitourinary system. Skeletal: No hypermetabolic lesions identified within the axial and appendicular skeleton. PET/PET/CT Tumor Base -Thigh Init IMPRESSION: No abnormal hypermetabolic uptake. Reading Location: [facility] CC: MIKAYLA Ruiz; Dr. 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, [address] Platelet Counton 10-07-2024 Platelets (Bld) [#/Vol] 227 10*3/uL Normal 150-450 [facility] Comment on above: Performed By: #### L 100.1900, L300.3900, L300.4310 #### [facility] [address] [place], [address] Platelet countOrdered By: Adryan Ruiz on 10-07-2024 Platelets (Bld) [#/Vol] 227 10*3/uL 150-450 [facility] Prothrombin Time w/INRon INR Coag (PPP) [Relative time] 1.1 {INR} Normal [facility] Comment on above: Performed By: #### L 100.1900, L300.3900, L300.4310 #### [facility] [address] [place], [address] PT Coag (PPP) [Time] 14.2 s Normal 11.7-14.9 [facility] Comment on above: Performed By: #### L 100.1900, L300.3900, L300.4310 #### [facility] [address] [place], [address] Prothrombin timeOrdered By: Cathy Ruiz on 10-07-2024 PT Coag (PPP) [Time] 14.2 s 11.7-14.9 [facility] Pulmonary Visit Reporton Pulmonary Visit Report [facility] of [place] [address] [place], [place] [address] OFFICE VISIT Date of Service: 10/07/24 MR#: [id number] Acct: [id number] Name: KRYSTYNA PADGETT Rep #: [id number] : 1955 Provider: MIKAYLA Ruiz Age/Sex: 69/M Location: [facility] [place] Status: Signed Assessment and Plan Assessment and Plan (1) Lung nodule, solitary: Status: Chronic Comment: 1.2 cm RLL Plan: If you recall, diagnostic CT of the chest done here in May did not document any nodules. Previously documented nodules were noted from an outside facility with a CT of the chest with contrast. Noncontrasted CTs have not revealed this particular area of concern. I contacted our radiologist and reviewed this most recent CT of the chest with contrast from this month and the diagnostic CT of the chest without contrast that was performed here in May. Initially, I was going to recommend a CT-guided biopsy. However, after discussing the case with radiology, radiologist could not determine an area that would require a CT guided biopsy. He felt that the area on the CT of the chest with contrast was likely pulmonary hypertension, which could progress with time and would show as an increase in size. To determine whether or not this area should be investigated further with a CT-guided biopsy I am going to order a PET scan. If the PET scan is positive we will proceed with ordering the CT-guided biopsy. If the PET scan is negative test results will be discussed with the patient in person and further plan will be determined. (2) Morbid obesity: Status: Chronic Plan: Complicates exam, plan, care and prognosis. Orders: Orders Partial Thromboplast Time Today I48.91 - Unspecified atrial fibrillation, R06.00 - Dyspnea, unspecified Prothrombin Time w/INR Today I48.91 - Unspecified atrial fibrillation, R06.00 - Dyspnea, unspecified Platelet Count Today R06.00 - Dyspnea, unspecified PET/CT Tumor Base -Thigh Init Today R91.1 - Solitary pulmonary nodule, R91.8 - Other nonspecific abnormal finding of lung field Plan Details Follow Up: 2 Weeks (CSM) HPI Discuss CT Chief Complaint: Test results HPI Comments Details: This patient presents to the office today to discuss test results. He is ambulatory and currently on room air. He has not recently been seen in the ED or urgent care for any respiratory illness. He has not required any antibiotics or prednisone for any breathing problems. He does have shortness of breath on exertion. He denies any cough, sputum production or hemoptysis. He denies any wheezing, chest tightness, chest pain or palpitations. He has not had any fever, chills or body aches. He continues complete smoking cessation. If you recall, this patient quit smoking decades ago. He was a very light smoker for a short period of time. Test results personally with patient: CT of the chest with contrast completed on September 30, 2024. No mediastinal or hilar lymphadenopathy. Subpleural nodular density in the medial right lower lobe now measuring 13.5 mm as compared to 12 mm previously. Former smoker. C/o SOB. Denies wheezing, cough, congestion, chest pain or tightness, dry mouth, headaches. Intake Vital Signs 07/02/24 09:58 10/07/24 08:02 Height 5 ft 6 in 5 ft 6 in Weight: 295 lb BMI 47.6 BP 113/76 Blood Pressure Location Rt brachial Position Sitting Respiration 20 H Pulse 59 L Pulse Source Monitor Temp 97.3 F L Temperature Source Temporal Artery Pulse Oximetry (%) 95 Oxygen Delivery Method room air Intake Visit Reasons: Discuss CT Chief Complaint: F/u MARIELENA Military Equipment Specialist Required: No DME Vendor: [employer] Accompanied by: Self Allergies VICKIE Inhibitors Allergy (Severe, Verified 10/07/24 08:13) Angioedema Beta-Blockers (Beta-Adrenergic Bloc Allergy (Intermediate, Verified 10/07/24 08:13) HEART RATE DROPS VERY LOW clonidine Allergy (Verified 10/07/24 08:13) Other lisinopril Allergy (Verified 10/07/24 08:13) Angioedema simvastatin Adverse Reaction (Severe, Verified 10/07/24 08:13) myalgia rosuvastatin Adverse Reaction (Intermediate, Verified 10/07/24 08:13) Myalgia Medications ???Medication ???Instructions ???Recorded ???Confirmed ???Type allopurinol 100 mg tablet 100 mg PO BID 05/20/20 10/07/24 Hi story ezetimibe 10 mg tablet (Zetia) 10 mg PO DAILY #90 tabs 09/29/21 0 10/07/24 Rx amlodipine 5 mg tablet 5 mg PO DAILY blood pressure #90 0 03/04/22 10/07/24 Rx tabs spironolactone 25 1 tab PO DAILY htn #90 tabs 10/07/24 Rx mg-hydrochlorothiazide 25 mg tablet apixaban 5 mg tablet (Eliquis) 5 mg PO BID #180 tabs 06/22/22 Rx nitroglycerin 0.4 mg sublingual 0.4 mg sublingual Q5M PRN 09/12/22 10/07/24 History tablet sildenafil 25 mg (more content not included)... Normal [facility] aPTT Coag (PPP) [Time]Ordere d By: Cathy Ruiz on 10-07-2024 aPTT Coag (Bld) [Time] 32.2 s 24.1-36.[address] [facility] [address] ANGIOGRAPHY CHEST W/CONTR Torsten 10-01-2024 CT ANGIOGRAPHY CHEST W/CONTRAST ORIGINAL EXAMINATION: CTA OF THE CHEST09/30/2024 10:54 am CTA CHEST WITH CONTRAST TECHNIQUE: CTA of the chest was performed after the administration of intravenous contrast. Multiplanar reformatted images are provided for review. MIP images are provided for review. Automated exposure control, iterative reconstruction, and/or weight based adjustment of the mA/kV was utilized to reduce the radiation dose to as low as reasonably achievable. CTA of the thorax was acquired in the axial plane. Coronal and sagittal reformatted images were reviewed. Three dimensional reconstructions were created on a separate workstation. COMPARISON: 08/14/2023, 02/24/2023, PET CT 11/21/2022 HISTORY: ORDERING SYSTEM PROVIDED HISTORY: Reason for Exam: dilated aortic root FINDINGS: No filling defects seen in the pulmonary arteries. The central pulmonary arteries are enlarged. The heart size is borderline. Moderate coronary artery calcifications seen. There are no pathologically enlarged axillary, mediastinal or hilar lymph nodes. The aortic annulus measures 2.7 cm. At the sinus of Valsalva, the aorta is 3.7 cm. At the sino-tubular junction, the aorta is measured at 3.3 cm. The ascending thoracic aorta is a maximum of 4 cm at the level of the main pulmonary artery. Trachea and central airways are patent. The subpleural nodular density in the medial right lower lobe now measures 13.5 mm as compared to 12 mm. This lesion has slowly increased in size over time. Multifocal scarring/atelectasis noted. There is no pleural effusion or pneumothorax. No aggressive osseous lesions seen. Degenerative changes seen of the spine. The upper abdomen is not evaluated in detail. No suspicious findings seen in the visualized portion of the abdomen. IMPRESSION: The irregular right lower lobe nodule has increased slightly in size. Although this lesion was not FDG avid, a low-grade neoplasm is not excluded. A chronic inflammatory lesion could also produce a similar appearance. If tissue sampling is not performed, a 3 to six-month follow-up advised. Ectasia of the ascending thoracic aorta is unchanged Atherosclerosis with coronary artery calcifications Interpreted by: Christiano Abel MD Preliminary Report By: Christiano Abel MD Electronically signed By Christiano Abel MD Dictated Date: 10/01/2024 12:36:42 PM Prelim Date: 10/01/2024 1:06:02 PM Sign Date: 10/01/2024 1:06:02 PM Ordering Provider: MANASA ZENDEJAS Normal [facility] .Auto Diffon 08-23-2024 Basophil, Absolute 0.0 10 3/mcL Normal 0.0-0.2 [facility] Comment on above: Performed By: #### A DIFF, PSA, ANEU, CBC, A1C, GFR, CMP, URIC, LIPID #### [address] [place], [place] [address] #### HCV1 #### [address] [address] Basophils/100 WBC (Bld) 0.4 % Normal 0.0-2.5 [facility] Comment on above: Performed By: #### A DIFF, PSA, ANEU, CBC, A1C, GFR, CMP, URIC, LIPID #### [address] [address] #### HCV1 #### [address] [address] Eosinophil, Absolute 0.1 10 3/mcL Normal 0.0-0.7 [facility] Comment on above: Performed By: #### A DIFF, PSA, ANEU, CBC, A1C, GFR, CMP, URIC, LIPID #### [address] [address] #### HCV1 #### [address] [address] Eosinophils/100 WBC (Bld) 1.2 % Normal 0.0-7.[address] [facility] Comment on above: Performed By: #### A DIFF, PSA, ANEU, CBC, A1C, GFR, CMP, URIC, LIPID #### [address] [id number] #### HCV1 #### [address] [address] Lymphocyte, Absolute 1.3 10 3/mcL Normal 0.9-4.3 [facility] Comment on above: Performed By: #### A DIFF, PSA, ANEU, CBC, A1C, GFR, CMP, URIC, LIPID #### [address] [address] #### HCV1 #### [address] [address] Lymphocytes/100 WBC (Bld) 15.2 % Low 20.0-40.[address] [facility] Comment on above: Performed By: #### A DIFF, PSA, ANEU, CBC, A1C, GFR, CMP, URIC, LIPID #### [address] [address] #### HCV1 #### [address] [address] Monocyte, Absolute 0.6 10 3/mcL Normal 0.1-1.4 [facility] Comment on above: Performed By: #### A DIFF, PSA, ANEU, CBC, A1C, GFR, CMP, URIC, LIPID #### [address] [address] #### HCV1 #### [address] [address] Monocytes/100 WBC (Bld) 6.6 % Normal 2.0-13.0 [facility] Comment on above: Performed By: #### A DIFF, PSA, ANEU, CBC, A1C, GFR, CMP, URIC, LIPID #### [address] [address] #### HCV1 #### [address] [address] Neutrophils/100 WBC (Bld) 76.6 % High 50.0-75.[address] [facility] Comment on above: Performed By: #### A DIFF, PSA, ANEU, CBC, A1C, GFR, CMP, URIC, LIPID #### [address] [address] #### HCV1 #### [address] [address] .GFRon 08-23-2024 Estimated Glomerular Filtration Rate 96 ml/min/1.73sqm Normal [facility] Comment on above: Result Comment: Stages of Chronic Kidney Disease (CKD) Stage Description eGFR(ml/min/1.73 sq.m.) CKD 1 Normal kidney function or >=90 normal kindney function with possible kidney damage (ex. Proteinuria) CKD 2 Kidney damage with mild loss 60-89 of kidney function CKD 3a Mild to moderate loss of kidney 45-59 function CKD 3b Moderate to severe loss of 30-44 of kindey function CKD 4 Severe loss of kidney function 15-29 CKD 5 Kidney failure <15 Note: (go live 2024) the eGFR calculation was updated to the 2020 CKD-EPI creatinine equation without a race factor to calculate the eGFR results. Performed By: #### A DIFF, PSA, ANEU, CBC, A1C, GFR, CMP, URIC, LIPID #### [address] [address] #### HCV1 #### [address] [address] .NEUABSon 08-23-2024 Neutrophil, Absolute 6.4 10 3/mcL Normal 2.3-8.1 [facility] Comment on above: Performed By: #### A DIFF, PSA, ANEU, CBC, A1C, GFR, CMP, URIC, LIPID #### [address] [address] #### HCV1 #### [place] [address] A1Con 08-23-2024 Glucose [Mass/Vol] 114 mg/dL Normal [facility] Comment on above: Order Comment: cc re krissyts to cardiology ([place]) Dr. Hawk Result Comment: Radha mated Average Glucose calculated by equation ((28.7xA1C)-46.7) Estimated average glucose (eAG) is a calculated value from Hemoglobin A1C and is new accounts banking representative of the average blood glucose level in the last 2-3 month period. Normal range: less than 114 mg/dL Performed By: #### A DIFF, PSA, ANEU, CBC, A1C, GFR, CMP, URIC, LIPID #### [address] [address] #### HCV1 #### [place] [address] HbA1c (Bld) [Mass fraction] 5.6 % Normal 4.3-6.[address] [facility] Comment on above: Order Comment: cc re stephanie to cardiology ([place]) Dr. Hawk Performed By: #### A DIFF, PSA, ANEU, CBC, A1C, GFR, CMP, URIC, LIPID #### [address] [address] #### HCV1 #### [place] [address] CBCon 08-23-2024 Erythrocyte distribution width (RBC) [Ratio] 14.5 % Normal 11.5-15.[address] [facility] Comment on above: Order Comment: cc re sults to cardiology ([place]) Dr. Hawk Performed By: #### A DIFF, PSA, ANEU, CBC, A1C, GFR, CMP, URIC, LIPID #### [address] [address] #### HCV1 #### [address] [address] Hematocrit (Bld) [Volume fraction] 42.3 % Normal 40.0-52.[address] [facility] Comment on above: Order Comment: cc re sults to cardiology ([place]) Dr. Hawk Performed By: #### A DIFF, PSA, ANEU, CBC, A1C, GFR, CMP, URIC, LIPID #### [address] [address] #### HCV1 #### [place] [address] Hgb 14.4 G/dL Normal 13.0-17.[address] [facility] Comment on above: Order Comment: cc re sults to cardiology ([place]) Dr. Hawk Performed By: #### A DIFF, PSA, ANEU, CBC, A1C, GFR, CMP, URIC, LIPID #### [address] [address] #### HCV1 #### [address] [address] MCH (RBC) [Entitic mass] 30.0 pg Normal 27.0-33.[address] [facility] Comment on above: Order Comment: cc re sults to cardiology ([place]) Dr. Hawk Performed By: #### A DIFF, PSA, ANEU, CBC, A1C, GFR, CMP, URIC, LIPID #### [address] [address] #### HCV1 #### [address] [address] MCHC 34.0 G/dL Normal 32.0-36.[address] [facility] Comment on above: Order Comment: cc re sults to cardiology ([place]) Dr. Hawk Performed By: #### A DIFF, PSA, ANEU, CBC, A1C, GFR, CMP, URIC, LIPID #### [address] [address] #### HCV1 #### [address] [address] MCV (RBC) [Entitic vol] 88.5 fL Normal 81.0-100.0 [facility] Comment on above: Order Comment: cc re sults to cardiology ([place]) Dr. Hawk Performed By: #### A DIFF, PSA, ANEU, CBC, A1C, GFR, CMP, URIC, LIPID #### [address] [address] #### HCV1 #### [place] [address] Platelet 213 10 3/mcL Normal 150-[address] [facility] Comment on above: Order Comment: cc re sults to cardiology ([place]) Dr. Hawk Performed By: #### A DIFF, PSA, ANEU, CBC, A1C, GFR, CMP, URIC, LIPID #### [place] [address] #### HCV1 #### [place] [address] Platelet mean volume (Bld) [Entitic vol] 9.3 fL Normal 6.4-10.[address] [facility] Comment on above: Order Comment: cc re sults to cardiology ([place]) Dr. Hawk Performed By: #### A DIFF, PSA, ANEU, CBC, A1C, GFR, CMP, URIC, LIPID #### [place] [id number] #### HCV1 #### [place] [address] RBC 4.79 10 6/mcL Normal 4.50-6.[address] [facility] Comment on above: Order Comment: cc re sults to cardiology ([place]) Dr. Hawk Performed By: #### A DIFF, PSA, ANEU, CBC, A1C, GFR, CMP, URIC, LIPID #### [place] [id number] #### HCV1 #### [address] [address] WBC 8.4 10 3/mcL Normal 4.5-10.[address] [facility] Comment on above: Order Comment: cc re sults to cardiology ([place]) Dr. Hawk Performed By: #### A DIFF, PSA, ANEU, CBC, A1C, GFR, CMP, URIC, LIPID #### [address] [address] #### HCV1 #### [place] [address] CMPon 08-23-2024 Albumin Level 3.8 G/dL Normal 3.4-4.[address] [facility] Comment on above: Order Comment: cc re sults to cardiology ([place]) Dr. Hawk Performed By: #### A DIFF, PSA, ANEU, CBC, A1C, GFR, CMP, URIC, LIPID #### [place] [address] #### HCV1 #### [place] [address] Albumin/Globulin [Mass ratio] 1.1 {ratio} Normal 1.1-2.[address] [facility] Comment on above: Order Comment: cc re sults to cardiology ([place]) Dr. Hawk Performed By: #### A DIFF, PSA, ANEU, CBC, A1C, GFR, CMP, URIC, LIPID #### [address] [address] #### HCV1 #### [place] [address] ALP [Catalytic activity/Vol] 71 U/L Normal 40-[address] [facility] Comment on above: Order Comment: cc re sults to cardiology ([place]) Dr. Hawk Performed By: #### A DIFF, PSA, ANEU, CBC, A1C, GFR, CMP, URIC, LIPID #### [address] [address] #### HCV1 #### [place] [address] ALT [Catalytic activity/Vol] 21 U/L Normal 16-[address] [facility] Comment on above: Order Comment: cc re sults to cardiology ([place]) Dr. Hawk Performed By: #### A DIFF, PSA, ANEU, CBC, A1C, GFR, CMP, URIC, LIPID #### [address] [address] #### HCV1 #### [place] [address] AST [Catalytic activity/Vol] 15 U/L Normal 10-[address] [facility] Comment on above: Order Comment: cc re sults to cardiology ([place]) Dr. Hawk Performed By: #### A DIFF, PSA, ANEU, CBC, A1C, GFR, CMP, URIC, LIPID #### [place] [id number] #### HCV1 #### [place] [address] Bili Total 1.0 mg/dL Normal 0.2-1.[address] [facility] Comment on above: Order Comment: cc re sults to cardiology ([place]) Dr. Hawk Result Comment: Use of this assay is not recommended for patients undergoing treatment with eltrombopag due to the potential for falsely elevated results. Performed By: #### A DIFF, PSA, ANEU, CBC, A1C, GFR, CMP, URIC, LIPID #### [place] [id number] #### HCV1 #### [place] [address] BUN/Creatinine Ratio 26 ratio Normal 7-27 [facility] Comment on above: Order Comment: re sults to cardiology ([place]) Dr. Hawk Performed By: #### A DIFF, PSA, ANEU, CBC, A1C, GFR, CMP, URIC, LIPID #### [place] [address] #### HCV1 #### [place] [address] Calcium [Mass/Vol] 9.4 mg/dL Normal 8.4-10.2 [facility] Comment on above: Order Comment: cc re sults to cardiology ([place]) Dr. Hawk Performed By: #### A DIFF, PSA, ANEU, CBC, A1C, GFR, CMP, URIC, LIPID #### [address] [address] #### HCV1 #### [address] [address] Chloride [Moles/Vol] 104 mmol/L Normal 98-107 [facility] Comment on above: Order Comment: re sults to cardiology ([place]) Dr. Hawk Performed By: #### A DIFF, PSA, ANEU, CBC, A1C, GFR, CMP, URIC, LIPID #### [address] [address] #### HCV1 #### [place] [address] CO2 [Moles/Vol] 34 mmol/L High 23-[address] [facility] Comment on above: Order Comment: re sults to cardiology ([place]) Dr. Hawk Performed By: #### A DIFF, PSA, ANEU, CBC, A1C, GFR, CMP, URIC, LIPID #### [place] [id number] #### HCV1 #### [place] [address] Creatinine [Mass/Vol] 0.81 mg/dL Normal 0.70-1.30 [facility] Comment on above: Order Comment: re sults to cardiology ([place]) Dr. Hawk Result Comment: Test ing performed on Siemens Dimension EXL analyzer using a modified kinetic Shahana technique. Performed By: #### A DIFF, PSA, ANEU, CBC, A1C, GFR, CMP, URIC, LIPID #### [place] [id number] #### HCV1 #### [place] [address] Electrolyte Balance 2.0 mEq/L Low 4.0-15.0 [facility] Comment on above: Order Comment: cc re sults to cardiology ([place]) Dr. Hawk Performed By: #### A DIFF, PSA, ANEU, CBC, A1C, GFR, CMP, URIC, LIPID #### [address] [address] #### HCV1 #### [address] [address] Globulin 3.4 G/dL Normal 1.5-3.[address] [facility] Comment on above: Order Comment: cc re sults to cardiology ([place]) Dr. Hawk Performed By: #### A DIFF, PSA, ANEU, CBC, A1C, GFR, CMP, URIC, LIPID #### [address] [address] #### HCV1 #### [address] [address] Glucose [Mass/Vol] 89 mg/dL Normal 80-115 [facility] Comment on above: Order Comment: cc re sults to cardiology ([place]) Dr. Hawk Performed By: #### A DIFF, PSA, ANEU, CBC, A1C, GFR, CMP, URIC, LIPID #### [address] [address] #### HCV1 #### [address] [address] Potassium [Moles/Vol] 3.6 mmol/L Normal 3.5-5.1 [facility] Comment on above: Order Comment: cc re sults to cardiology ([place]) Dr. Hawk Performed By: #### A DIFF, PSA, ANEU, CBC, A1C, GFR, CMP, URIC, LIPID #### [address] [address] #### HCV1 #### [address] [address] Sodium [Moles/Vol] 140 mmol/L Normal 136-145 [facility] Comment on above: Order Comment: cc re sults to cardiology ([place]) Dr. Hawk Performed By: #### A DIFF, PSA, ANEU, CBC, A1C, GFR, CMP, URIC, LIPID #### [address] [address] #### HCV1 #### [place] [address] Total Protein 7.2 G/dL Normal 6.4-8.[address] [facility] Comment on above: Order Comment: cc re sults to cardiology ([place]) Dr. Hawk Performed By: #### A DIFF, PSA, ANEU, CBC, A1C, GFR, CMP, URIC, LIPID #### [place] [id number] #### HCV1 #### [place] [address] Urea nitrogen [Mass/Vol] 21 mg/dL High 7-[address] [facility] Comment on above: Order Comment: cc re sults to cardiology ([place]) Dr. Hawk Performed By: #### A DIFF, PSA, ANEU, CBC, A1C, GFR, CMP, URIC, LIPID #### [place] [id number] #### HCV1 #### [place] [address] HCVon 08-23-2024 Hep C Ab Non-Reactive Normal Non-Reactiv e [facility] Comment on above: Order Comment: re sults to cardiology ([place]) Dr. Hawk Performed By: #### A DIFF, PSA, ANEU, CBC, A1C, GFR, CMP, URIC, LIPID #### [place] [id number] #### HCV1 #### [place] [address] Hep C Ab Int Normal [facility] Comment on above: Order Comment: re sults to cardiology ([place]) Dr. Hawk Result Comment: Nonr eactive: Samples with a value < 0.80 are considered nonreactive (negative) for antibodies to HCV. A negative test result does not exclude the possibility of exposure to or infection with HCV. HCV antibodies may be undetectable in some stages of the infection and in some clinical conditions. See Interp Performed By: #### A DIFF, PSA, ANEU, CBC, A1C, GFR, CMP, URIC, LIPID #### [address] [place], [place] [address] #### HCV1 #### [place] [address] LABORATORYOrdered By: SYSTEM SYSTEM on 08-23-2024 Albumin BCP dye [Mass/Vol] 3.8 G/dL Normal 3.4 - 4.8 G/dL AO ADM SS Albumin/Globulin [Mass ratio] 1.1 {ratio} Normal 1.1 - 2.5 ratio AO ADM SS ALP [Catalytic activity/Vol] 71 U/L Normal 40 - 135 U/L AO ADM SS ALT With P-5'-P [Catalytic activity/Vol] 21 U/L Normal 16 - 63 U/L AO ADM SS AST With P-5'-P [Catalytic activity/Vol] 15 U/L Normal 10 - 40 U/L AO ADM SS Basophils (Bld) [#/Vol] 0.0 103/mcL Normal 0.0 - 0.2 10^3/mcL AO Workflow SS Basophils/100 WBC (Bld) 0.4 % Normal 0.0 - 2.5 % AO Workflow SS Bilirubin [Mass/Vol] 1.0 mg/dL Normal 0.2 - 1 .0 mg/dL AO ADM SS Comment on above: Interpretive Data: U se of this assay is not recommended for patients undergoing treatment with eltrombopag due to the potential for falsely elevated results. Calcium [Mass/Vol] 9.4 mg/dL Normal 8.4 - 10. 2 mg/dL AO ADM SS Chloride [Moles/Vol] 104 mmol/L Normal 98 - 10 7 mmol/L AO ADM SS CO2 [Moles/Vol] 34 mmol/L High 23 - 31 mmol/L AO ADM SS Creatinine [Mass/Vol] 0.81 mg/dL Normal 0.70 - 1.30 mg/dL AO ADM SS Comment on above: Interpretive Data: T esting performed on Siemens Dimension EXL analyzer using a modified kinetic Shahana technique. Electrolyte Balance 2.0 mEq/L Low 4.0 - 15 .0 mEq/L AO ADM SS Eosinophil, Absolute 0.1 103/mcL Normal 0.0 - 0 .7 10^3/mcL AO Workflow SS Eosinophils/100 WBC (Bld) 1.2 % Normal 0.0 - 7.0 % AO Workflow SS Erythrocyte distribution width (RBC) [Ratio] 14.5 % Normal 11.5 - 15.5 % AO Workflow SS Estimated Glomerular Filtration Rate 96 ml/min/1.73sqm Invalid Interpretation Code AO Chemistry S Comment on above: Interpretive Data: Stages of Chronic Kidney Disease (CKD) Stage Description eGFR(ml/min/1.73 sq.m.) CKD 1 Normal kidney function or >=90 normal kindney function with possible kidney damage (ex. Proteinuria) CKD 2 Kidney damage with mild loss 60-89 of kidney function CKD 3a Mild to moderate loss of kidney 45-59 function CKD 3b Moderate to severe loss of 30-44 of kindey function CKD 4 Severe loss of kidney function 15-29 CKD 5 Kidney failure <15 Note: (go live 2024) the eGFR calculation was updated to the 2020 CKD-EPI creatinine equation without a race factor to calculate the eGFR results. Globulin 3.4 G/dL Normal 1.5 - 3.8 G/dL AO ADM SS Glucose [Mass/Vol] 89 mg/dL Normal 80 - 115 mg/dL AO ADM SS Glucose [Mass/Vol] 114 mg/dL Invalid Interpretation Code AO Chemistry S Comment on above: Interpretive Data: E stimated average glucose (eAG) is a calculated value from Hemoglobin A1C and is new accounts banking representative of the average blood glucose level in the last 2-3 month period. Normal range: less than 114 mg/dL HbA1c (Bld) [Mass fraction] 5.6 % Normal 4.3 - 6.4 % AO ADM SS Hematocrit (Bld) [Volume fraction] 42.3 % Normal 40.0 - 52.0 % AO Workflow SS Hemoglobin (Bld) [Mass/Vol] 14.4 G/dL Normal 13.0 - 17.5 G/dL AO Workflow SS Lymphocytes (Bld) [#/Vol] 1.3 103/mcL Normal 0.9 - 4.3 10^3/mcL AO Workflow SS Lymphocytes/100 WBC (Bld) 15.2 % Low 20.0 - 40.0 % AO Workflow SS MCH (RBC) [Entitic mass] 30.0 pg Normal 27.0 - 33.0 pg AO Workflow SS MCHC 34.0 G/dL Normal 32.0 - 36.0 G/dL AO Workflow SS MCV (RBC) [Entitic vol] 88.5 fL Normal 81.0 - 100.0 fL AO Workflow SS Monocytes (Bld) [#/Vol] 0.6 103/mcL Normal 0.1 - 1.4 10^3/mcL AO Workflow SS Monocytes/100 WBC (Bld) 6.6 % Normal 2.0 - 13.0 % AO Workflow SS Neutrophils (Bld) [#/Vol] 6.4 103/mcL Normal 2.3 - 8.1 10^3/mcL AO Workflow SS Neutrophils/100 WBC (Bld) 76.6 % High 50.0 - 75.0 % AO Workflow SS Platelet mean volume (Bld) [Entitic vol] 9.3 fL Normal 6.4 - 10.5 fL AO Workflow SS Platelets (Bld) [#/Vol] 213 103/mcL Normal 150 - 450 10^3/mcL AO Workflow SS Potassium [Moles/Vol] 3.6 mmol/L Normal 3.5 - 5.1 mmol/L AO ADM SS Prostate specific Ag [Mass/Vol] 1.95 ng/mL Normal 0.00 - 4.00 ng/mL AO ADM SS Protein [Mass/Vol] 7.2 G/dL Normal 6.4 - 8.2 G/dL AO ADM SS RBC (Bld) [#/Vol] 4.79 106/mcL Normal 4.50 - 6.0 0 10^6/mcL AO Workflow SS Sodium [Moles/Vol] 140 mmol/L Normal 136 - 145 mmol/L AO ADM SS Urea nitrogen [Mass/Vol] 21 mg/dL High 7 - 18 mg/dL AO ADM SS Urea nitrogen/Creatinine [Mass ratio] 26 ratio Normal 7 - 27 ratio AO ADM SS Uric Acid Lvl 6.8 mg/dL Normal 3.5 - 7.2 mg/dL AO ADM SS WBC (Bld) [#/Vol] 8.4 103/mcL Normal 4.5 - 10.8 10^3/mcL AO Workflow SS LABORATORYOrdered By: Kaylah Busby on 08-23-2024 Cholesterol [Mass/Vol] 190 mg/dL Normal 0 - 2 00 mg/dL AO ADM SS Comment on above: Interpretive Data: C holesterol Reference Interval: Less than 200 Desirable 200-239 Borderline high risk 240 and above High risk Cholesterol in HDL [Mass/Vol] 75 mg/dL High 40 - 60 mg/dL AO ADM SS Cholesterol in LDL [Mass/Vol] 102 mg/dL Normal 0 - 130 mg/dL AO ADM SS Triglyceride [Mass/Vol] 65 mg/dL Normal 0 - 150 mg/dL AO ADM SS Comment on above: Interpretive Data: T riglyceride Reference Interval: Less than 150 Normal 150-199 Borderline high risk 200-499 High risk 500 or higher Very high risk LABORATORYOrdered By: Chasidy Shah on 08-23-2024 HCV Ab IA Ql Non-Reactive (08/23/24 9:40 AM) Normal Non-Reactiv e AH ADM SS HCV Ab IA Ql Nonreactive: Samples with a value < 0.80 are considered nonreactive (negative) for antibodies to HCV.A negative test result does not exclude the possibility of exposure to or infection with HCV. HCV antibodies may be undetectable in some stages of the infection and in some clinical conditions. Invalid Interpretation Code Chemistry S LIPIDon 08-23-2024 Cholesterol [Mass/Vol] 190 mg/dL Normal 0-200 [facility] Comment on above: Order Comment: rosas brown to cardiology ([place]) Dr. Hawk Result Comment: Chol esterol Reference Interval: Less than 200 Desirable 200-239 Borderline high risk 240 and above High risk Performed By: #### A DIFF, PSA, ANEU, CBC, A1C, GFR, CMP, URIC, LIPID #### [address] [address] #### HCV1 #### [address] [address] Cholesterol in HDL [Mass/Vol] 75 mg/dL High 40-[address] [facility] Comment on above: Order Comment: rosas brown to cardiology ([place]) Dr. Hawk Performed By: #### A DIFF, PSA, ANEU, CBC, A1C, GFR, CMP, URIC, LIPID #### [address] [address] #### HCV1 #### [address] [address] Cholesterol in LDL [Mass/Vol] 102 mg/dL Normal 0-[address] [facility] Comment on above: Order Comment: rosas brown to cardiology ([place]) Dr. Hawk Performed By: #### A DIFF, PSA, ANEU, CBC, A1C, GFR, CMP, URIC, LIPID #### [address] [address] #### HCV1 #### [place] [address] Triglyceride [Mass/Vol] 65 mg/dL Normal 0-150 [facility] Comment on above: Order Comment: rosas brown to cardiology ([place]) Dr. Hawk Result Comment: Trig lyceride Reference Interval: Less than 150 Normal 150-199 Borderline high risk 200-499 High risk 500 or higher Very high risk Performed By: #### A DIFF, PSA, ANEU, CBC, A1C, GFR, CMP, URIC, LIPID #### [address] [address] #### HCV1 #### [place] [address] PSAon 08-23-2024 Prostate Specific Antigen 1.95 ng/mL Normal 0.00-4.[address] [facility] Comment on above: Order Comment: rosas brown to urology ([place]) Dr. Osman Performed By: #### A DIFF, PSA, ANEU, CBC, A1C, GFR, CMP, URIC, LIPID #### [place] [address] #### HCV1 #### [place] [address] URICon 08-23-2024 Uric Acid Lvl 6.8 mg/dL Normal 3.5-7.[address] [facility] Comment on above: Order Comment: rosas brown to cardiology ([place]) Dr. Hawk Performed By: #### A DIFF, PSA, ANEU, CBC, A1C, GFR, CMP, URIC, LIPID #### [address] [address] #### HCV1 #### [place] [address] Emergency Department Summary on 07-02-2024 Emergency Department Summary [facility] Medical Records Department [address] [place] [id number] Emergency Department Summary 07/02/24 MR#: [id number] Acct: [id number] Name: KRYSTYNA PADGETT #: [id number] : 1955 69 From: Behzad Rivera DO PCP: Dr. Manasa Zendejas DO Status:DEP ER Location: ED HPI History of Present Illness Chief Complaint: Lower Extremity Injury Informant: patient and friend Narrative Narrative: 69-year-old male history of uric acid stones on allopurinol presenting to the emergency room with swelling pain redness to the lateral right foot. Patient states he has had gout in this area before and this feels very similar. Symptoms have been present for 3 days. In addition to allopurinol he also takes potassium citrate. He denies any known trauma to the foot recently. He is not a diabetic. No reported fevers. PFSH PFS Medical History Intermittent palpitations Diminished pulses in lower extremity MARIELENA (obstructive sleep apnea) Chest pain Atrial fibrillation Fatigue Lung nodule, solitary Essential hypertension Dyspnea Obesity Bilateral kidney stones Hydronephrosis HLD (hyperlipidemia) PVCs (premature ventricular contractions) Atherosclerotic heart disease of [place] coronary artery without angina pectoris Sinus bradycardia Hypertension Home Medications ???Medication ???Instructions ???Recorded ???Last Taken ???Type allopurinol 100 mg tablet 100 mg PO BID 05/20/20 Unknown History ezetimibe 10 mg tablet (Zetia) 10 mg PO DAILY #90 tabs 09/29/21 Unknown Rx potassium citrate 10 mEq (1,080 10 meq PO BID 01/27/22 Unknown History mg) tablet,extended release amlodipine 5 mg tablet 5 mg PO DAILY blood pressure #90 03/04/22 Unknown Rx tabs spironolactone 25 1 tab PO DAILY htn #90 tabs 03/04/22 Unknown Rx mg-hydrochlorothiazide 25 mg tablet apixaban 5 mg tablet (Eliquis) 5 mg PO BID #180 tabs 06/22/22 Unknown Rx nitroglycerin 0.4 mg sublingual 0.4 mg sublingual Q5M PRN 09/12/22 Unknown History tablet sildenafil 25 mg tablet mg PO PRN 09/12/23 Unknown History Allergy/AdvReac Type Severity Reaction Status Date / Time VICKIE Inhibitors Allergy Severe Angioedema Verified 07/02/24 09:58 Beta-Blockers Allergy Intermediate HEART RATE Verified 12/24/24 09:58 (Beta-Adrenergic Bloc DROPS VERY LOW clonidine Allergy Other Verified 07/02/24 09:58 lisinopril Allergy Angioedema Verified 07/02/24 09:58 simvastatin AdvReac Severe myalgia Verified 07/02/24 09:58 rosuvastatin AdvReac Intermediate Myalgia Verified 07/02/24 09:58 Family History Mother CAD (coronary artery disease) CHF, stent CHF (congestive heart failure) Father Valvular disease CHF (congestive heart failure) Surgical History History of cardiac radiofrequency ablation (RFA) ( 11/2022) History of left heart catheterization ( 11/18/15) History of repair of left rotator cuff History of arthroscopy of left knee History of shoulder surgery Hx of hernia repair History of left knee surgery History of back surgery Social History Smoking Status: Former smoker alcohol intake: current alcohol intake frequency: a few times a month Alcohol type: wine substance use type: does not use caffeine: No ROS ROS ED Constitutional Constitutional ED: Denies chills, fever(s) or weight loss Eyes Eyes: Denies change in vision or diplopia ENT ENT ED: Denies ear pain, rhinorrhea or sore throat Cardiovascular Cardiovascular: Denies chest pain, orthopnea, palpitations or racing heartbeat Respiratory/Chest Respiratory/Chest: Denies cough, dyspnea or orthopnea Gastrointestinal Gastrointestinal: Denies abdominal pain, diarrhea, nausea or vomiting Genitourinary Genitourinary ED: Denies dysuria, hematuria or urinary frequency Musculoskeletal Musculoskeletal: Reports other Details: Right foot pain swelling redness ; Denies arthralgias or myalgias Integumentary Denies abscess or rash Neurologic Neurologic: Denies headache(s) or weakness Psychiatric Psychiatric: Denies anxiety, depression, suicidal ideation or suicidal thoughts Endocrine Endocrinology: Denies polydipsia, polyphagia or polyuria Allergic/Immunologic Allergic/Immunologic ED: Denies mouth swelling, tongue swelling or urticaria EXAM Physical Exam Const Vital Signs: 07/02/24 09:58 Temperature 98.2 F Temperature Source Oral Pulse Rate 82 Respiratory Rate 18 Blood Pressure 135/72 H Blood Pressure Mean 93 Pulse Ox 99 Oxygen Delivery Method Room Air Positive well nourished, well developed and obese General Appearance ED: well developed (more content not included)... Normal [facility] Pulmonary Visit Reporton Pulmonary Visit Report [facility] [place] [address] [place] [address] OFFICE VISIT Date of Service: 06/21/24 MR#: [id number] Acct: [id number] Name: KRYSTYNA PADGETT Rep #: [id number] : 1955 Provider: MIKAYLA Ruiz Age/Sex: 69/M Location: [facility] Status: Signed with Addenda ADDENDUM by Aileen Murillo on 06/21/24 at 1230 Office Procedure Documentation entered by Aileen Murillo 06/21/24 12:30: Immunizations Fluad Triv (65y up)(PF) 45 mcg (15 mcg x 3)/0.5 mL IM syringe Performing Provider: Cathy Ruiz SUPERVISOR RESIDENTIAL, MEAGHAN-C Performing Location: [facility] Administered by: Aileen Murillo on 06/21/24 12:20 Dose Route Admin Location Dispensed Lot Number Expiration Date [facility] Man ufacturer 45 mcg IM Left Deltoid 0.5 mL [id number] 10/26/24 55122-886-04 [place], [place] Self Representation Document Preparation. VIS Given Date VIS Provided VIS Publication Date 06/21/24 Single Vaccine 21 Eligibility Eligibility Date Funding Source Not Applicable Date cc: Dr. Manasa Zendejas, DO * Signed Assessment and Plan Assessment and Plan (1) Lung nodule, solitary: Status: Acute Comment: 1.2 cm RLL Plan: No nodule seen on most recent diagnostic CT scan of the chest. The patient is not appropriate for LDCT. We will monitor him clinically and repeat imaging if there is an indication. He was provided with his annual influenza vaccination today. (2) Morbid obesity: Status: Chronic Plan: Complicates exam, plan, care and prognosis. Continue to encourage healthy weight loss. (3) MARIELENA (obstructive sleep apnea): Status: Chronic Plan: He is using and benefiting from Pap therapy. No indication for titration study at this time. Contact the office for any new or worsening symptoms in the meantime. Follow-up in June. Orders: Orders Influenza Immunization Today Z23 - Encounter for immunization Medications: New Fluad Triv 2023-(65y up)(PF) 45 mcg (15 mcg x 3)/0.5 mL (flu vac 2023 [id number](PF)) 45 mcg IM ONCE 0.5 mL 0RF NS Z23 - Encounter for immunization Plan Details Follow Up: 6 Months ([facility]) HPI 5 m fu Chief Complaint: Test results HPI Comments Details: This patient presents to the office today to discuss test results. He is ambulatory and currently on room air. He has not recently been seen in the ED or urgent care for any respiratory illness. He has not required any antibiotics or prednisone for any breathing problems. He does have shortness of breath on exertion. He denies any cough, sputum production or hemoptysis. He denies any wheezing, chest tightness, chest pain or palpitations. He has not had any fever, chills or body aches. He reports excellent compliance with his PAP device. He is not having problems with excessive nocturia. He denies morning headache or dry mouth. He wakes up feeling rested and refreshed. He continues complete smoking cessation. If you recall, this patient quit smoking decades ago. He was a very light smoker for a short period of time. Test results personally with patient: CT of the chest without contrast completed on May 22, 2024. No mass consolidation or edema. No pleural effusion or thickening. Elevated left hemidiaphragm. No mediastinal or hilar adenopathy. Compliance report for the past 30 days shows 97 % compliance with average use of 9 hours and 6 minutes per night. Current setting is BiPAP 22/16 cmH2O with a backup rate of 10 breaths per minute. Residual AHI of 10.9 events per hour. Leaks appear to be occurring almost daily. Intake Vital Signs 01/18/24 08:00 06/21/24 07:41 Height 5 ft 6 in 5 ft 6 in Weight: 290 lb BMI 46.7 BP 111/74 Blood Pressure Location Lt brachial Position Sitting Respiration 20 H Pulse 75 Pulse Source Monitor Temp 97.7 F L Temperature Source Temporal Artery Pulse Oximetry (%) 93 Oxygen Delivery Method room air Intake Visit Reasons: 5 m fu Chief Complaint: F/u MARIELENA Military Equipment Specialist Required: No DME Vendor: larissa 1CLICKyaya Accompanied by: Self Is patient in pain?: No Allergies VICKIE Inhibitors Allergy (Severe, Verified 06/21/24 11:27) Angioedema Beta-Blockers (Beta-Adrenergic Bloc Allergy (Intermediate, Verified 06/21/24 11:27) HEART RATE DROPS VERY LOW clonidine Allergy (Verified 06/21/24 11:27) Other lisinopril Allergy (Verified 06/21/24 11:27) Angioedema simvastatin Adverse Reaction (Severe, Verified 06/21/24 11:27) myalgia rosuvastatin Adverse Reaction (Intermediate, Verified 06/21/24 11:27) Myalgia Medications ???Medication ???Instructions ???Recorded ???Confirmed ???Type allopurinol 100 mg tablet 100 mg PO BID 05/20/20 06/21/24 History ezetimibe 10 mg tablet (Zetia) 10 mg PO DAILY #90 tabs (more content not included)... Normal [facility] Chest without Contraston Chest without Contrast [facility] Services [address] [place] [address] Chest without Contrast MR#: [id number] Acct: [id number] Name: KRYSTYNA PADGETT Rep #: [id number] : 1955 M 68 From: Jensen Leung MD PCP: Dr. Manasa Zendejas, DO Status: REG CLI Study: Chest without Contrast Date of Exam: 05/22/24 Exam# [id number] Ordering Dr: Cathy Ruiz SUPERVISOR RESIDENTIAL SUPERVISOR RESIDENTIAL-C [id number] INDICATION: follow nodule EXAMINATION: CT CHEST WITHOUT CONTRAST - CT Chest W/O Contrast Injection TECHNIQUE: Helically acquired images were obtained of the chest. A radiation dose optimization technique was used for this scan. IV Contrast dosage and agent: None. COMPARISON: None. FINDINGS: LUNGS, PLEURA AND LARGE AIRWAYS: No masses, consolidation, or edema. No pleural effusion or thickening. Elevated left hemidiaphragm. THYROID: No thyroid lesions. HEART AND PERICARDIUM: Heart size is normal. No pericardial effusion. CORONARY ARTERIES: Coronary artery calcification is seen. VESSELS: Thoracic aorta is not dilated. MEDIASTINUM AND JEANETTE: No mediastinal or hilar adenopathy. Esophagus is unremarkable. No hiatal hernia. UPPER ABDOMEN: No acute pathology. BONES: No suspicious lytic or blastic abnormality. CT/Chest without Contrast IMPRESSION: Negative CT chest without contrast. Electronically Signed: Jensen Leung MD at 8:55 EST , CC: MIKAYLA Ruiz; Dr. Manasa Zendejas DO Arc Welding Machine Operator: Signed Normal [facility] Echo Complete W/ Contraston 01-31-2024 Echo Complete W/ Contrast [facility] [address] [place] [address] Echo Complete W/ Contrast 01/31/24 0833 MR#: [id number] Acct: [id number] Name: KRYSTYNA PADGETT Rep #: [id number] : 1955 68 From: Donn Hawk MD Attending Dr: Dr. Donn Hawk MD Status: REG I Ordering Dr: Donn Hawk MD Date: 01/31/24 Location: [facility] Sex: M C Admitted: Reason For Study: DYSPNEA Procedure This was a 2D Doppler, Color Flow transthoracic echocardiogram. The study was technically difficult. Due to body habitus. Contrast injection was performed. Exam performed in department. Left Ventricle Mild concentric left ventricular hypertrophy. Normal LV size. The left ventricular ejection fraction is 55 %. Normal diastology for age. Right Ventricle Normal right ventricle. Atria The left atrium is mildly enlarged. Normal right atrium. Mitral Valve Trivial mitral valve insufficiency. Tricuspid Valve Normal tricuspid valve. Aortic Valve The aortic valve is not well visualized in the short axis view. There is no aortic stenosis. Mild (1+) aortic valve insufficiency. Pulmonic Valve The pulmonic valve is not well visualized. Great Vessels Normal sized aortic root. Pericardium/Pleural No pericardial effusion. Medication Diluted definity 4.0ml given slow IV push to enhance endocardial definition. MMode/2D Measurements Calculations LVIDd: 4.8 cm IVSd: 1.3 cm Ao root diam: 3.5 cm LVIDs: 3.1 cm LVPWd: 1.3 cm RVDd: 3.5 cm FS: 35.5 % LAV(MOD-bp): 84.3 ml LVAd ap4: 39.0 cm2 SV(MOD-sp4): 88.9 ml LAV(MOD-bp) Indexed: 37.1 ml/m2 LVLd ap4: 8.7 cm LAV(MOD-sp2): 83.2 ml EDV(MOD-sp4): 152.4 ml LAV(MOD-sp4): 83.6 ml EDV(sp4-el): 148.8 ml LVAs ap4: 21.7 cm2 LVLs ap4: 6.2 cm ESV(MOD-sp4): 63.5 ml ESV(sp4-el): 64.0 ml EF(MOD-sp4): 58.3 % EF(sp4-el): 57.0 % SV(sp4-el): 84.8 ml LA A4 area: 27.5 cm2 LA dimension(2D): 3.7 cm RA A4 area: 16.7 cm2 TAPSE: 2.5 cm Time Measurements MV dec time: 0.22 sec Doppler Measurements Calculations MV E max andrade: 72.5 cm/sec Lat Peak E' Andrade: 12.8 cm/sec Med Peak E' Andrade: 10.4 cm/sec MV A max andrade: 45.0 cm/sec E/E' lat: 5.6 E/E' med: 7.0 MV E/A: 1.6 MV V2 max: 93.4 cm/sec MV P1/2t max andrade: 95.6 cm/sec Ao V2 max: 175.6 cm/sec MV max P.5 mmHg MV P1/2t: 83.9 msec Ao max P.4 mmHg MV V2 mean: 51.7 cm/sec MV dec slope: 333.8 cm/sec2 Ao V2 mean: 112.1 cm/sec MV mean P.2 mmHg MVA(P1/2t): 2.6 cm2 Ao mean P.0 mmHg MV V2 VTI: 34.0 cm Ao V2 VTI: 37.5 cm AV (velocity ratio): 0.77 LV V1 max: 125.3 cm/sec PA V2 max: 100.0 cm/sec LV V1 max P.3 mmHg PA V2 mean: 68.3 cm/sec LV V1 mean P.5 mmHg LV V1 mean: 89.2 cm/sec LV V1 VTI: 28.7 cm ECHO/Echo Complete W/ Contrast Interpretation Summary The study was technically difficult. Mild concentric left ventricular hypertrophy. The left ventricular ejection fraction is 55 %. The left atrium is mildly enlarged. Mild (1+) aortic valve insufficiency. Ordering Physician: Donn Hawk Referring Physician: Manasa Zendejas Performed By: Carina Lemos RDCS, RVT 01/31/24 105 Date Donn Hawk MD CC: Dr. Donn Hawk MD; Dr. Manasa Zendejas DO Date Dictated: 01/31/24832 Date Transcribed: 01/31/241058 Arc Welding Machine Operator: Signed Normal [facility] Stress Reporton 01-31-2024 Stress Report [facility] [address] [place] [address] MR#: [id number] Acct: [id number] Name: KRYSTYNA PADGETT Rep #: [id number] : 1955 68 From: Donn Hawk MD Primary Care: Dr. Manasa Zendejas DO Status: REG CLI Referring Dr: Donn Hawk MD Sex: M C Stress Test Report Date: 01/31/2024 Procedure: Exercise tolerance test/imaging study Indications: Coronary artery disease Consent: Per the patient Procedure: The patient exercised on a Mazin protocol for 3 minutes and 54 seconds achieving a peak heart rate of 130 bpm (84% predicted maximal heart rate) with a peak blood pressure 150/72 mmHg and a peak MET capacity of 6.7 METs. The baseline ECG demonstrated sinus rhythm. The peak exercise ECG demonstrated no ischemic changes. Occasional PVCs and PACs noted in exercise and in recovery. The functional capacity was considered below average. There was no complaint of chest discomfort during exercise or recovery. The examination was discontinued secondary to target heart rate being achieved. The patient was injected with 14.8 mCi of technetium 99m Cardiolite and subsequently rest SPECT Cardiolite nuclear imaging was obtained in the horizontal long, vertical long, and short axis views. Post-exercise, the patient was injected with 44.6 mCi of technetium 99m Cardiolite and subsequently stress SPECT Cardiolite nuclear imaging was obtained in the horizontal long, vertical long, and short axis views. A gated Cardiolite study at peak stress was obtained. Rest and stress SPECT Cardiolite nuclear imaging status post realignment, normalization, and attenuation correction, demonstrates the appearance of relative uniform tracer uptake and myocardial perfusion appearing within normal limits. There is end systolic thickening and brightening. The gated Cardiolite study demonstrates myocardial thickening and inward wall motion. The reported LVEF is 64%. Impression: 1. Technically adequate (percent predicted maximal heart rate greater than 85%) exercise tolerance test 2. Peak exercise ECG with no ischemic changes 3. PVCs and PACs noted with exercise and in recovery 4. Rest and stress SPECT Cardiolite nuclear imaging demonstrate relative uniform tracer uptake and myocardial perfusion appearing within normal limits. 5. The gated Cardiolite study reports an LVEF of 64%. This note was generated with Ziltaation software. It may contain incorrect words, spelling, and punctuation that were not noted in checking the note before signing. 01/31/24 1252 Date Donn Hawk MD CC: Dr. Donn Hawk MD; Dr. Manasa Zendejas DO Date Dictated: 01/31/24 1251 Date Transcribed: 01/31/24 125 Arc Welding Machine Operator: VITOR Signed Normal [facility] Pulmonary Visit Reporton Pulmonary Visit Report [facility] [place] [address] [place] [address] OFFICE VISIT Date of Service: 01/18/24 MR#: [id number] Acct: [id number] Name: KRYSTYNA PADGETT Rep #: [id number] : 1955 Provider: MIKAYLA Ruiz Age/Sex: 68/M Location: [facility] Status: Signed Assessment and Plan Assessment and Plan (1) Lung nodule, solitary: Status: Acute Comment: 1.2 cm RLL Plan: PET scan negative. Continue surveillance by repeating a diagnostic CT of the chest in 6 months. Contact the office with any new or worsening symptoms in the meantime. Return to the office in June to discuss test results. (2) Morbid obesity: Status: Chronic (3) MARIELENA (obstructive sleep apnea): Status: Chronic Plan: He is using and benefiting from Pap therapy. No indication for titration study at this time. Contact the office for any new or worsening symptoms in the meantime. Follow-up in June. Orders: Orders Chest without Contrast 05/10/24 R91.1 - Solitary pulmonary nodule Plan Details Follow Up: 06/09/24 ([facility]) HPI 4 M FU Chief Complaint: Test results HPI Comments Details: This patient presents to the office today to discuss test results. He is ambulatory and currently on room air. He has not recently been seen in the ED or urgent care for any respiratory illness. He has not required any antibiotics or prednisone for any breathing problems. He does have shortness of breath, this has not changed. He denies any cough, sputum production or hemoptysis. He denies any wheezing, chest tightness, chest pain or palpitations. He has not had any fever, chills or body aches. He reports excellent compliance with his PAP device. He is not having problems with excessive nocturia. He denies morning headache or dry mouth. He wakes up feeling rested and refreshed. He continues complete smoking cessation. If you recall, this patient quit smoking decades ago. He was a very light smoker for a short period of time. Test results personally with patient: PET/CT completed on November 21, 2023. Impression is negative examination. There is no definitive quantitative scintigraphic evidence of viable neoplasm. Meticulous attention paid to the bilateral hemithorax pulmonary parenchymal demonstrates no evidence of increased tracer uptake on the present examination. Compliance report for the past 30 days shows 100% compliance with average use of 4 hours and 25 minutes per night. Current setting is BiPAP 22/16 cmH2O with a backup rate of 10 breaths per minute. Residual AHI of 6.1 events per hour. Leaks do not appear to be problematic. Intake Vital Signs 09/12/23 07:30 12/28/23 14:36 01/18/24 07:54 01/18/24 08:00 Height 5 ft 6 in 5 ft 6 in 5 ft 6 in 5 ft 6 in Weight: 270 lb 2 oz 282 lb BMI 43.6 45.5 BP 111/76 114/74 Blood Pressure Location Rt brachial Rt brachial Position Sitting Sitting Respiration 18 24 H Pulse 60 72 Pulse Source Monitor Monitor Temp 97.5 F L 97.4 F L Temperature Source Temporal Artery Temporal Artery Pulse Oximetry (%) 96 95 Oxygen Delivery Method room air room air Intake Visit Reasons: 4 M FU Chief Complaint: F/u MARIELENA Military Equipment Specialist Required: No DME Vendor: Alexi Accompanied by: Self Is patient in pain?: No Allergies VICKIE Inhibitors Allergy (Severe, Verified 01/18/24 07:56) Angioedema Beta-Blockers (Beta-Adrenergic Bloc Allergy (Intermediate, Verified 01/18/24 07:56) HEART RATE DROPS VERY LOW clonidine Allergy (Verified 01/18/24 07:56) Other lisinopril Allergy (Verified 01/18/24 07:56) Angioedema simvastatin Adverse Reaction (Severe, Verified 01/18/24 07:56) myalgia rosuvastatin Adverse Reaction (Intermediate, Verified 01/18/24 07:56) Myalgia Medications ???Medication ???Instructions ???Recorded ???Confirmed ???Type allopurinol 100 mg tablet 100 mg PO BID 05/20/20 01/18/24 History ezetimibe 10 mg tablet (Zetia) 10 mg PO DAILY #90 tabs 09/29/21 01/18/24 Rx potassium citrate 10 mEq (1,080 10 meq PO BID 01/27/22 01/18/24 History mg) tablet,extended release amlodipine 5 mg tablet 5 mg PO DAILY blood pressure #90 03/04/22 01/18/24 Rx tabs spironolactone 25 1 tab PO DAILY htn #90 tabs 03/04/22 01/18/24 Rx mg-hydrochlorothiazide 25 mg tablet apixaban 5 mg tablet (Eliquis) 5 mg PO BID #180 tabs 06/22/22 01/18/24 Rx nitroglycerin 0.4 mg sublingual 0.4 mg sublingual Q5M PRN 09/12/22 01/18/24 History tablet sildenafil 25 mg tablet mg PO PRN 09/12/23 01/18/24 History Have you fallen in the past year?: [facility] Intermittent palpitations Diminished pulses in lower extremity MARIELENA (obstructive sleep apnea) Chest pain Atrial fibrillation Fatigue Lung nodule, solitary Esse (more content not included)... Normal [facility] 12 Lead EKG performed by [facility] on 12-28-2023 12 Lead EKG performed by [place] [id number] [place] [address] 12 Lead EKG performed by [facility] 12/28/23 1523 MR#: [id number] Acct: [id number] Name: KRYSTYNA PADGETT Rep #: [id number] : 1955 68 From: Donn Hawk MD Attending Dr: Dr. Donn Hawk MD Status: DEP AMB Ordering Dr: Donn Hawk MD Date: 12/28/23 Location: [facility] Sex: M C Admitted: [facility]/12 Lead EKG performed by [facility] ECG Report Interpretation ---Sinus Bradycardia WITHIN NORMAL LIMITSElectronically signed on 08/05/2024 at 10:[address] Donn Hawk [employer] Version [id number] 08/05/24 1014 Date Donn Hawk MD CC: Dr. Manasa Zendejas DO Date Dictated: 12/28/23 152 Date Transcribed: 12/28/231522 Arc Welding Machine Operator: VITOR Signed Normal [facility] Cardiology Visit Reporton Cardiology Visit Report [facility] [address] [place], [place] [address] OFFICE VISIT Date of Service: 12/28/23 MR#: [id number] Acct: [id number] Name: KRYSTYNA PADGETT Rep #: [id number] : 1955 Provider: Dr. Donn Hawk MD Age/Sex: 68/M Location: [facility] Status: Signed HPI HPI History of Present Illness Details: This gentleman has history of nonobstructive coronary artery disease, atrial fibrillation status post ablation, hypertension and dyslipidemia. He is here for routine follow-up visit. Denies chest pains. Shortness of breath with strenuous exertion only. 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 Intake Vital Signs 09/12/23 07:30 12/28/23 14:36 Height 5 ft 6 in 5 ft 6 in Weight: 270 lb 2 oz 282 lb BMI 43.6 45.5 BP 111/76 107/72 Blood Pressure Location Rt brachial Lt brachial Position Sitting Sitting Respiration 18 16 Pulse 60 63 Pulse Source Monitor Monitor Temp 97.5 F L Temperature Source Temporal Artery Pulse Oximetry (%) 96 Oxygen Delivery Method room air Intake Visit Reasons: O/D for FU Military Equipment Specialist Required: No Accompanied by: Self Is patient in pain?: No Allergies VICKIE Inhibitors Allergy (Severe, Verified 12/28/23 14:41) Angioedema Beta-Blockers (Beta-Adrenergic Bloc Allergy (Intermediate, Verified 12/28/23 14:41) HEART RATE DROPS VERY LOW clonidine Allergy (Verified 12/28/23 14:41) Other lisinopril Allergy (Verified 12/28/23 14:41) Angioedema simvastatin Adverse Reaction (Severe, Verified 12/28/23 14:41) myalgia rosuvastatin Adverse Reaction (Intermediate, Verified 12/28/23 14:41) Myalgia Medications ???Medication ???Instructions ???Recorded ???Confirmed ???Type allopurinol 100 mg tablet 100 mg PO BID 05/20/20 12/28/23 History ezetimibe 10 mg tablet (Zetia) 10 mg PO DAILY #90 tabs 09/29/21 12/28/23 Rx potassium citrate 10 mEq (1,080 10 meq PO BID 01/27/22 12/28/23 History mg) tablet,extended release amlodipine 5 mg tablet 5 mg PO DAILY blood pressure #90 03/04/22 12/28/23 Rx tabs spironolactone 25 1 tab PO DAILY htn #90 tabs 03/04/22 12/28/23 Rx mg-hydrochlorothiazide 25 mg tablet apixaban 5 mg tablet (Eliquis) 5 mg PO BID #180 tabs 06/22/22 12/28/23 Rx nitroglycerin 0.4 mg sublingual 0.4 mg sublingual Q5M PRN 09/12/22 12/28/23 History tablet sildenafil 25 mg tablet mg PO PRN 09/12/23 12/28/23 History PFSH Medical History Intermittent palpitations Diminished pulses in lower extremity MARIELENA (obstructive sleep apnea) Chest pain Atrial fibrillation Fatigue Lung nodule, solitary Essential hypertension Dyspnea Obesity Bilateral kidney stones Hydronephrosis HLD (hyperlipidemia) PVCs (premature ventricular contractions) Atherosclerotic heart disease of [place] coronary artery without angina pectoris Sinus bradycardia Hypertension Surgical History History of cardiac radiofrequency ablation (RFA) ( 11/2022) History of left heart catheterization ( 11/18/15) History of repair of left rotator cuff History of arthroscopy of left knee History of shoulder surgery Hx of hernia repair History of left knee surgery History of back surgery Family History Mother CAD (coronary artery disease) CHF, stent CHF (congestive heart failure) Father Valvular disease CHF (congestive heart failure) Social History Smoking Status: Former smoker alcohol intake: current alcohol intake frequency: a few times a month Alcohol type: wine substance use type: does not use caffeine: No ROS Const Const: Positive for fatigue; Negative for weakness, headache(s), daytime sleepiness or difficulty sleeping ENT ENT: Negative for headache(s), dizziness or Nosebleed/epistaxis Cardio Chest Pain: No Palpitations: No Edema: Bilateral (BLE - trace) Resp Respiratory: Positive for SOB with activity; Negative for SOB at rest, SOB orthopnea SOB lying down or Cough GI GI: Negative nausea, vomiting or heartburn Neuro Neuro: Negative for dizziness, lightheadedness, near syncope, headache(s) or weakness Endo Endo: Positive for fatigue Cardiology Exam Const Appearance: comfortable and no acute distress Nutritional Appearance: obese Neck Neck: no JVD Carotids: Negative bruit Chest Auscultation: Bilateral: Clear to Auscultation Cardio Rate: regular rate Rhythm: regular rhythm Heart sounds: S1 normal and S2 normal GI GI: obese Neuro General: patient alert, patient awake and patient oriented x3 Extremities Lower Extremity Edema: +2: Bilateral Supplemental Info Sheets (more content not included)... Normal [facility] CT THORAX W/O CONTRASTon CT THORAX W/O CONTRAST ORIGINAL EXAMINATION: CT CHEST WITHOUT CONTRAST08/14/2023 1:15 pm TECHNIQUE: Multiple-row detector helical CT examination of the thorax without IV contrast. Axial, sagittal, and coronal reconstructed images. This exam was performed according to our departmental dose optimization program, and includes the following measures where applicable: automated exposure control, adjustment of the mAs and/or kVp according to patient size and/or exam, and an iterative reconstruction algorithm. HISTORY: ORDERING SYSTEM PROVIDED HISTORY: Reason for Exam: follow up lung nodule ,former smoker COMPARISON: CT chest 02/24/2023, PET/CT 11/21/2022, CT chest 10/28/2022 FINDINGS: The trachea and mainstem bronchi are patent. The medial right lower lobe pleural/juxtapleural nodule measures 1.2 cm, previously 1.1 cm on 02/24/2023 and 1.0 cm on 10/28/2022 by my remeasurements. No new pulmonary nodule. No pleural effusion or pneumothorax. Dependent atelectasis and bibasilar scarring are noted. Stable elevation of the left hemidiaphragm with adjacent compressive atelectatic change. No visible thyroid nodule. No mediastinal, axillary, or supraclavicular adenopathy on this noncontrast study. The heart is normal in size without pericardial effusion. Main pulmonary artery is normal in caliber. The ascending aorta measures 4 cm, mildly dilated.. Coronary artery disease. Mild calcified atherosclerotic disease of the aorta. No acute process of the chest wall or osseous structures. Spinal and bilateral shoulder degenerative changes noted. Limited abdominal images are noncontributory. IMPRESSION: The 1.2 cm medial right lower lobe nodule has demonstrated slow interval growth since the 10/28/2022 study. Pulmonary consultation is recommended regarding further imaging surveillance and/or tissue sampling. Ectatic ascending aorta. I have personally reviewed the images of this examination and agree with the resident's findings and interpretation. Interpreted by: Manasa Orr MD Preliminary Report By: David Roy Electronically signed By Manasa Orr MD Dictated Date: 08/16/2023 10:49:10 AM Prelim Date: 08/16/2023 3:06:39 PM Sign Date: 08/16/2023 3:06:39 PM Ordering Provider: MANASA Rahman [facility] ([place]) .Auto Diffon 08-14-2023 Basophil, Absolute 0.0 10 3/mcL Normal 0.0-0.2 [facility] ([place]) Comment on above: Performed By: #### U RICCO, LIPID, A1C, ADIFF, CBC, ANEU, CMP, GFR #### [address] [address] Basophils/100 WBC (Bld) 0.3 % Normal 0.0-2.5 [facility] ([place]) Comment on above: Performed By: #### U RICCO, LIPID, A1C, ADIFF, CBC, ANEU, CMP, GFR #### [address] [address] Eosinophil, Absolute 0.0 10 3/mcL Normal 0.0-0.4 [facility] ([place]) Comment on above: Performed By: #### U RICCO, LIPID, A1C, ADIFF, CBC, ANEU, CMP, GFR #### [address] [address] Eosinophils/100 WBC (Bld) 0.4 % Normal 0.0-7.0 [facility] ([place]) Comment on above: Performed By: #### U RICCO, LIPID, A1C, ADIFF, CBC, ANEU, CMP, GFR #### [address] [address] Lymphocyte, Absolute 1.2 10 3/mcL Normal 0.8-3.9 [facility] ([place]) Comment on above: Performed By: #### U RICCO, LIPID, A1C, ADIFF, CBC, ANEU, CMP, GFR #### [address] [address] Lymphocytes/100 WBC (Bld) 10.2 % Normal 10.0-50.0 [facility] ([place]) Comment on above: Performed By: #### U RICCO, LIPID, A1C, ADIFF, CBC, ANEU, CMP, GFR #### [address] [address] Monocyte, Absolute 0.6 10 3/mcL Normal 0.2-1.0 [facility] ([place]) Comment on above: Performed By: #### U RICCO, LIPID, A1C, ADIFF, CBC, ANEU, CMP, GFR #### [address] [address] Monocytes/100 WBC (Bld) 5.0 % Normal 1.7-13.0 [facility] ([place]) Comment on above: Performed By: #### U RICCO, LIPID, A1C, ADIFF, CBC, ANEU, CMP, GFR #### [address] [address] Neutrophils/100 WBC (Bld) 84.1 % High 37.0-80.0 [facility] ([place]) Comment on above: Performed By: #### U RICCO, LIPID, A1C, ADIFF, CBC, ANEU, CMP, GFR #### [address] [address] .GFRon 08-14-2023 GFR Non- 85 ml/min/1.73sqm Normal [facility] ([place]) Comment on above: Result Comment: GFR Population mean for , Non- Americans Ages 20-29 = 116 mL/min/1.73 sq.m. Ages 30-39 = 107 mL/min/1.73 sq.m. Ages 40-49 = 99 mL/min/1.73 sq.m. Ages 50-59 = 93 mL/min/1.73 sq.m. Ages 60-69 = 85 mL/min/1.73 sq.m. Ages 70+ = 75 mL/min/1.73 sq.m. Chronic Kidney Disease: Less than 60 mL/min/1.73 square meters End Stage Renal Disease: Less than 15 mL/min/1.73 square meters Performed By: #### U RICCO, LIPID, A1C, ADIFF, CBC, ANEU, CMP, GFR #### [address] [address] GFR 103 ml/min/1.73sqm Normal [facility] ([place]) Comment on above: Result Comment: GFR Population mean for , Non- Americans Ages 20-29 = 116 mL/min/1.73 sq.m. Ages 30-39 = 107 mL/min/1.73 sq.m. Ages 40-49 = 99 mL/min/1.73 sq.m. Ages 50-59 = 93 mL/min/1.73 sq.m. Ages 60-69 = 85 mL/min/1.73 sq.m. Ages 70+ = 75 mL/min/1.73 sq.m. Chronic Kidney Disease: Less than 60 mL/min/1.73 square meters End Stage Renal Disease: Less than 15 mL/min/1.73 square meters Performed By: #### U RICCO, LIPID, A1C, ADIFF, CBC, ANEU, CMP, GFR #### [address] [address] .NEUABSon 08-14-2023 Neutrophil, Absolute 9.6 10 3/mcL High 2.9-6.2 [facility] ([place]) Comment on above: Performed By: #### U RICCO, LIPID, A1C, ADIFF, CBC, ANEU, CMP, GFR #### [address] [address] A1Con 08-14-2023 HbA1c (Bld) [Mass fraction] 5.4 % Normal 4.3-6.4 [facility] ([place]) Comment on above: Order Comment: cc sarah brown to Dr. [facility] Performed By: #### U RICCO, LIPID, A1C, ADIFF, CBC, ANEU, CMP, GFR #### [address] [place] [address] CBCon 08-14-2023 Erythrocyte distribution width (RBC) [Ratio] 13.8 % Normal 11.5-14.5 [facility] ([place]) Comment on above: Order Comment: rosas brown to Dr. [facility] Performed By: #### U RICCO, LIPID, A1C, ADIFF, CBC, ANEU, CMP, GFR #### [place] [address] Hematocrit (Bld) [Volume fraction] 43.9 % Normal 42.0-52.0 [facility] ([place]) Comment on above: Order Comment: rosas brown to Dr. [facility] Performed By: #### U RICCO, LIPID, A1C, ADIFF, CBC, ANEU, CMP, GFR #### [place] [address] Hgb 15.0 G/dL Normal 14.0-18.0 [facility] ([place]) Comment on above: Order Comment: rosas brown to Dr. [facility] Performed By: #### U RICCO, LIPID, A1C, ADIFF, CBC, ANEU, CMP, GFR #### [place] [address] MCH (RBC) [Entitic mass] 30.3 pg Normal 27.0-31.2 [facility] ([place]) Comment on above: Order Comment: rosas brown to Dr. [facility] Performed By: #### U RICCO, LIPID, A1C, ADIFF, CBC, ANEU, CMP, GFR #### [place] [address] MCHC 34.1 G/dL Normal 31.8-35.4 [facility] ([place]) Comment on above: Order Comment: rosas brown to Dr[facility] Performed By: #### U RICCO, LIPID, A1C, ADIFF, CBC, ANEU, CMP, GFR #### [place] [address] MCV (RBC) [Entitic vol] 88.9 fL Normal 80.0-94.0 [facility] ([place]) Comment on above: Order Comment: rosas brown to Dr. [facility] Performed By: #### U RICCO, LIPID, A1C, ADIFF, CBC, ANEU, CMP, GFR #### [address] [address] Platelet 199 10 3/mcL Normal 130-400 [facility] ([place]) Comment on above: Order Comment: rosas brown to Dr. [facility] Performed By: #### U RICCO, LIPID, A1C, ADIFF, CBC, ANEU, CMP, GFR #### [address] [address] Platelet mean volume (Bld) [Entitic vol] 9.4 fL Normal 7.4-10.4 [facility] ([place]) Comment on above: Order Comment: rosas brown to Dr. [facility] Performed By: #### U RICCO, LIPID, A1C, ADIFF, CBC, ANEU, CMP, GFR #### [place] [address] RBC 4.94 10 6/mcL Normal 4.04-6.13 [facility] ([place]) Comment on above: Order Comment: rosas brown to Dr[facility] Performed By: #### U RICCO, LIPID, A1C, ADIFF, CBC, ANEU, CMP, GFR #### [address] [address] WBC 11.4 10 3/mcL High 4.6-10.8 [facility] ([place]) Comment on above: Order Comment: rosas brown to Dr[facility] Performed By: #### U RICCO, LIPID, A1C, ADIFF, CBC, ANEU, CMP, GFR #### [address] [address] CMPon 08-14-2023 Albumin Level 3.6 G/dL Normal 3.4-4.8 [facility] ([place]) Comment on above: Order Comment: rosas brown to Dr[facility] Performed By: #### U RICCO, LIPID, A1C, ADIFF, CBC, ANEU, CMP, GFR #### [address] [address] Albumin/Globulin [Mass ratio] 1.0 {ratio} Low 1.1-2.5 [facility] ([place]) Comment on above: Order Comment: rosas brown to Dr[facility] Performed By: #### U RICCO, LIPID, A1C, ADIFF, CBC, ANEU, CMP, GFR #### [address] [address] ALP [Catalytic activity/Vol] 78 U/L Normal 40-135 [facility] ([place]) Comment on above: Order Comment: rosas brown to Dr[facility] Performed By: #### U RICCO, LIPID, A1C, ADIFF, CBC, ANEU, CMP, GFR #### [address] [address] ALT [Catalytic activity/Vol] 30 U/L Normal 16-63 [facility] ([place]) Comment on above: Order Comment: rosas brown to Dr[facility] Performed By: #### U RICCO, LIPID, A1C, ADIFF, CBC, ANEU, CMP, GFR #### [address] [address] AST [Catalytic activity/Vol] 13 U/L Normal 10-40 [facility] ([place]) Comment on above: Order Comment: rosas brown to [facility] Performed By: #### U RICCO, LIPID, A1C, ADIFF, CBC, ANEU, CMP, GFR #### [address] [address] Bili Total 1.0 mg/dL Normal 0.2-1.0 [facility] ([place]) Comment on above: Order Comment: rosas brown to Dr. [facility] Result Comment: Use of this assay is not recommended for patients undergoing treatment with eltrombopag due to the potential for falsely elevated results. Performed By: #### U RICCO, LIPID, A1C, ADIFF, CBC, ANEU, CMP, GFR #### [address] [address] BUN/Creatinine Ratio 27 ratio Normal 7-27 [facility] ([place]) Comment on above: Order Comment: rosas brown to Dr[facility] Performed By: #### U RICCO, LIPID, A1C, ADIFF, CBC, ANEU, CMP, GFR #### [address] [address] Calcium [Mass/Vol] 9.7 mg/dL Normal 8.4-10.2 [facility] ([place]) Comment on above: Order Comment: rosas brown to Dr. [facility] Performed By: #### U RICCO, LIPID, A1C, ADIFF, CBC, ANEU, CMP, GFR #### [address] [address] Chloride [Moles/Vol] 102 mmol/L Normal 98-107 [facility] ([place]) Comment on above: Order Comment: rosas brown to Dr[facility] Performed By: #### U RICCO, LIPID, A1C, ADIFF, CBC, ANEU, CMP, GFR #### [address] [address] CO2 [Moles/Vol] 33 mmol/L High 23-31 [facility] ([place]) Comment on above: Order Comment: rosas brown to Dr[facility] Performed By: #### U RICCO, LIPID, A1C, ADIFF, CBC, ANEU, CMP, GFR #### [address] [address] Creatinine [Mass/Vol] 0.89 mg/dL Normal 0.70-1.30 [facility] ([place]) Comment on above: Order Comment: rosas brown to Dr[facility] Performed By: #### U RICCO, LIPID, A1C, ADIFF, CBC, ANEU, CMP, GFR #### [address] [address] Electrolyte Balance 9.0 mEq/L Normal 4.0-15.0 [facility] ([place]) Comment on above: Order Comment: rosas brown to Dr[facility] Performed By: #### U RICCO, LIPID, A1C, ADIFF, CBC, ANEU, CMP, GFR #### [address] [address] Globulin 3.5 G/dL Normal [facility] ([place]) Comment on above: Order Comment: rosas brown to [facility] Performed By: #### U RICCO, LIPID, A1C, ADIFF, CBC, ANEU, CMP, GFR #### [address] [address] Glucose [Mass/Vol] 93 mg/dL Normal 80-115 [facility] ([place]) Comment on above: Order Comment: rosas brown to Dr[facility] Performed By: #### U RICCO, LIPID, A1C, ADIFF, CBC, ANEU, CMP, GFR #### [address] [address] Potassium [Moles/Vol] 4.1 mmol/L Normal 3.5-5.1 [facility] ([place]) Comment on above: Order Comment: rosas brown to Dr[facility] Performed By: #### U RICCO, LIPID, A1C, ADIFF, CBC, ANEU, CMP, GFR #### [address] [address] Sodium [Moles/Vol] 144 mmol/L Normal 136-145 [facility] ([place]) Comment on above: Order Comment: rosas brown to Dr[facility] Performed By: #### U RICCO, LIPID, A1C, ADIFF, CBC, ANEU, CMP, GFR #### [address] [address] Total Protein 7.1 G/dL Normal 6.4-8.2 [facility] ([place]) Comment on above: Order Comment: rosas brown to [facility] Performed By: #### U RICCO, LIPID, A1C, ADIFF, CBC, ANEU, CMP, GFR #### [address] [address] Urea nitrogen [Mass/Vol] 24 mg/dL High 7-18 [facility] ([place]) Comment on above: Order Comment: rosas brown to Dr[facility] Performed By: #### U RICCO, LIPID, A1C, ADIFF, CBC, ANEU, CMP, GFR #### [address] [address] LIPIDon 08-14-2023 Cholesterol [Mass/Vol] 189 mg/dL Normal 0-200 [facility] ([place]) Comment on above: Order Comment: rosas brown to Dr. [facility] Result Comment: Chol esterol Reference Interval: Less than 200 Desirable 200-239 Borderline high risk 240 and above High risk Performed By: #### G FR, CRE #### [address] [address] Cholesterol in HDL [Mass/Vol] 74 mg/dL High 40-60 [facility] ([place]) Comment on above: Order Comment: rosas brown to Dr[facility] Performed By: #### G FR, CRE #### [place] [id number] Cholesterol in LDL [Mass/Vol] 106 mg/dL Normal 0-130 [facility] ([place]) Comment on above: Order Comment: rosas brown to Dr[facility] Performed By: #### G FR, CRE #### [address] [address] Triglyceride [Mass/Vol] 45 mg/dL Normal 0-150 [facility] ([place]) Comment on above: Order Comment: rosas brown to Dr. [facility] Result Comment: Trig lyceride Reference Interval: Less than 150 Normal 150-199 Borderline high risk 200-499 High risk 500 or higher Very high risk Performed By: #### G FR, CRE #### [address] [address] MALBRon 08-14-2023 U Creatinine 69.3 mg/dL Normal 39.0-259.0 [facility] ([place]) Comment on above: Order Comment: rosas brown to Dr[facility] Performed By: #### M ALBR #### [address] [address] U Microalb 702 mcg/dL Normal [facility] ([place]) Comment on above: Order Comment: rosas brown to Dr[facility] Performed By: #### M ALBR #### [address] [address] U Ratio Alb/Cre 10 mcg/mg Normal 0-30 [facility] ([place]) Comment on above: Order Comment: rosas brown to Dr[facility] Performed By: #### M ALBR #### [address] [address] URICon 08-14-2023 Uric Acid Lvl 5.4 mg/dL Normal 3.5-7.2 [facility] ([place]) Comment on above: Order Comment: rosas brown to Dr[facility] Performed By: #### U RICCO, LIPID, A1C, ADIFF, CBC, ANEU, CMP, GFR #### [address] [address] No Panel InformationOrdered By: Rocio Jara on 04-24-2023 Prostate Specific Antigen Total 1.51 ng/mL 0.0-4.0 [facility] Comment on above: This test was perfor med using the TPSA assay method for Near Page chemistry system. Values obtained with differentassay methods cannot be used interchangably.When changing PSA assays in the course of monitoring apatient, additional sequential testing should be carriedout to confirm baseline values. CT THORAX W/ CONTRASTon 02-08 CT THORAX W/ CONTRAST ORIGINAL EXAMINATION: CT OF THE CHEST WITH CONTRAST 02/24/2023 11:35 am TECHNIQUE: CT of the chest was performed with the administration of intravenous contrast. Multiplanar reformatted images are provided for review. Automated exposure control, iterative reconstruction, and/or weight based adjustment of the mA/kV was utilized to reduce the radiation dose to as low as reasonably achievable. COMPARISON: October 28, 2022, CT PET November 21, 2022 HISTORY: ORDERING SYSTEM PROVIDED HISTORY: Reason for Exam: follow up lung nodule per radiologist recommendation pt states no chest complaints. follow-up on right sided lung nodule xweeks. no sx. FINDINGS: Minor degenerative changes are noted in the spine. No other osseous abnormality seen. Very small scattered areas of pulmonary and pleural scarring are seen bilaterally. Elevation of the left hemidiaphragm is stable. Scattered areas of atelectasis are evident bilaterally. No confluent area of airspace disease is visible. No pleural fluid seen. At the medial aspect of the right lower lobe, there is a pleural or juxtapleural 12 mm pulmonary nodule seen. This is very similar to the previous study from October 28, 2022 allowing for technical differences. No new pulmonary nodule is visible. No adenopathy is identified. No additional contributory abnormality seen. IMPRESSION: Stable pleural or juxtapleural medial right lower lobe pulmonary nodule. Continued surveillance follow-up recommended. Interpreted by: Manasa Orr MD Preliminary Report By: Manasa Orr MD Electronically signed By Manasa Orr MD Dictated Date: 02/27/2023 10:09:25 AM Prelim Date: 02/27/2023 10:13:40 AM Sign Date: 02/27/2023 10:13:40 AM Ordering Provider: MANASA Rahman [facility] ([place]) .GFRon 02-24-2023 GFR 94 ml/min/1.73sqm Normal [facility] ([place]) Comment on above: Result Comment: GFR Population mean for , Non- Americans Ages 20-29 = 116 mL/min/1.73 sq.m. Ages 30-39 = 107 mL/min/1.73 sq.m. Ages 40-49 = 99 mL/min/1.73 sq.m. Ages 50-59 = 93 mL/min/1.73 sq.m. Ages 60-69 = 85 mL/min/1.73 sq.m. Ages 70+ = 75 mL/min/1.73 sq.m. Chronic Kidney Disease: Less than 60 mL/min/1.73 square meters End Stage Renal Disease: Less than 15 mL/min/1.73 square meters Performed By: #### G , CRE #### [place] [address] [address] GFR Non- 77 ml/min/1.73sqm Normal [facility] ([place]) Comment on above: Result Comment: GFR Population mean for , Non- Americans Ages 20-29 = 116 mL/min/1.73 sq.m. Ages 30-39 = 107 mL/min/1.73 sq.m. Ages 40-49 = 99 mL/min/1.73 sq.m. Ages 50-59 = 93 mL/min/1.73 sq.m. Ages 60-69 = 85 mL/min/1.73 sq.m. Ages 70+ = 75 mL/min/1.73 sq.m. Chronic Kidney Disease: Less than 60 mL/min/1.73 square meters End Stage Renal Disease: Less than 15 mL/min/1.73 square meters Performed By: #### G FR, CRE #### [address] [address] CREon 02-24-2023 Creatinine [Mass/Vol] 0.97 mg/dL Normal 0.70-1.30 [facility] ([place]) Comment on above: Performed By: #### G , CRE #### [address] [address] LABORATORYOrdered By: SYSTEM SYSTEM on 02-24-2023 Creatinine [Mass/Vol] 0.97 mg/dL Invalid Interpretation Code 0.70 - 1.30 mg/dL AO ADM SS GFR/1.73 sq M.predicted among blacks MDRD (S/P/Bld) [Vol rate/Area] 94 ml/min/1.73sqm Invalid Interpretation Code AO Chemistry S Comment on above: Interpretive Data: GFR Population mean for , Non- Americans Ages 20-29 = 116 mL/min/1.73 sq.m. Ages 30-39 = 107 mL/min/1.73 sq.m. Ages 40-49 = 99 mL/min/1.73 sq.m. Ages 50-59 = 93 mL/min/1.73 sq.m. Ages 60-69 = 85 mL/min/1.73 sq.m. Ages 70+ = 75 mL/min/1.73 sq.m. Chronic Kidney Disease: Less than 60 mL/min/1.73 square meters End Stage Renal Disease: Less than 15 mL/min/1.73 square meters GFR/1.73 sq M.predicted among non-blacks MDRD (S/P/Bld) [Vol rate/Area] 77 ml/min/1.73sqm Invalid Interpretation Code AO Chemistry S Comment on above: Interpretive Data: GFR Population mean for , Non- Americans Ages 20-29 = 116 mL/min/1.73 sq.m. Ages 30-39 = 107 mL/min/1.73 sq.m. Ages 40-49 = 99 mL/min/1.73 sq.m. Ages 50-59 = 93 mL/min/1.73 sq.m. Ages 60-69 = 85 mL/min/1.73 sq.m. Ages 70+ = 75 mL/min/1.73 sq.m. Chronic Kidney Disease: Less than 60 mL/min/1.73 square meters End Stage Renal Disease: Less than 15 mL/min/1.73 square meters LABORATORYOrdered By: SYSTEM SYSTEM on 11-10-2022 Basophils (Bld) [#/Vol] 0.0 103/mcL Invalid Interpretation Code 0.0 - 0.3 10^3/mcL AH Workflow SS Basophils/100 WBC (Bld) 0.6 % Invalid Interpretation Code 0.0 - 2.5 % AH Workflow SS Calcium [Mass/Vol] 8.9 mg/dL Invalid Interpretation Code 8.7 - 10.4 mg/dL ADM SS Chloride [Moles/Vol] 106 mmol/L Invalid Interpretation Code 98 - 110 mEq/L ADM SS CO2 [Moles/Vol] 34 mmol/L Invalid Interpretation Code 22 - 32 mEq/L ADM SS Creatinine [Mass/Vol] 0.85 mg/dL Invalid Interpretation Code 0.60 - 1.40 mg/dL AH ADM SS Electrolyte Balance 4.0 mEq/L Invalid Interpretation Code 4.0 - 15.0 mEq/L ADM SS Eosinophils (Bld) [#/Vol] 0.1 103/mcL Invalid Interpretation Code 0.0 - 0.7 10^3/mcL AH Workflow SS Eosinophils/100 WBC (Bld) 1.6 % Invalid Interpretation Code 0.0 - 6.0 % AH Workflow SS Erythrocyte distribution width (RBC) [Ratio] 14.9 % Invalid Interpretation Code 11.5 - 15.5 % AH Workflow SS GFR/1.73 sq M.predicted among blacks MDRD (S/P/Bld) [Vol rate/Area] ml/min/1.73sqm Invalid Interpretation Code AH Chemistry S GFR/1.73 sq M.predicted among non-blacks MDRD (S/P/Bld) [Vol rate/Area] ml/min/1.73sqm Invalid Interpretation Code Chemistry S Glucose [Mass/Vol] 93 mg/dL Invalid Interpretation Code 82 - 115 mg/dL ADM SS Hematocrit (Bld) [Volume fraction] 43.0 % Invalid Interpretation Code 40.0 - 52.0 % AH Workflow SS Hemoglobin (Bld) [Mass/Vol] 14.5 G/dL Invalid Interpretation Code 13.0 - 17.5 G/dL AH Workflow SS Lymphocytes (Bld) [#/Vol] 1.1 103/mcL Invalid Interpretation Code 0.9 - 4.3 10^3/mcL Workflow SS Lymphocytes/100 WBC (Bld) 15.6 % Invalid Interpretation Code 20.0 - 40.0 % Workflow SS MCH (RBC) [Entitic mass] 30.3 pg Invalid Interpretation Code 27.0 - 33.0 pg AH Workflow SS MCHC 33.8 G/dL Invalid Interpretation Code 32.0 - 36.0 G/dL Workflow SS MCV (RBC) [Entitic vol] 89.7 fL Invalid Interpretation Code 81.0 - 100.0 fL Workflow SS Monocytes (Bld) [#/Vol] 0.5 103/mcL Invalid Interpretation Code 0.1 - 1.4 10^3/mcL Workflow SS Monocytes/100 WBC (Bld) 7.9 % Invalid Interpretation Code 2.0 - 13.0 % AH Workflow SS Neutrophils (Bld) [#/Vol] 5.0 103/mcL Invalid Interpretation Code 2.3 - 8.1 10^3/mcL Workflow SS Neutrophils/100 WBC (Bld) 74.3 % Invalid Interpretation Code 50.0 - 75.0 % Workflow SS Platelet mean volume (Bld) [Entitic vol] 9.3 fL Invalid Interpretation Code 6.4 - 10.5 fL AH Workflow SS Platelets (Bld) [#/Vol] 208 103/mcL Invalid Interpretation Code 150 - 450 10^3/mcL AH Workflow SS Potassium [Moles/Vol] 3.7 mmol/L Invalid Interpretation Code 3.5 - 5.0 mEq/L ADM SS RBC (Bld) [#/Vol] 4.79 106/mcL Invalid Interpretation Code 4.50 - 6.00 10^6/mcL AH Workflow SS Sodium [Moles/Vol] 144 mmol/L Invalid Interpretation Code 136 - 145 mEq/L ADM SS Urea nitrogen [Mass/Vol] 24.0 mg/dL Invalid Interpretation Code 8.0 - 22.0 mg/dL ADM SS Urea nitrogen/Creatinine [Mass ratio] 28.2 ratio Invalid Interpretation Code 10.0 - 22.0 ratio ADM SS WBC (Bld) [#/Vol] 6.8 103/mcL Invalid Interpretation Code 4.5 - 10.8 10^3/mcL AH Workflow SS LABORATORYOrdered By: Demetir Ruiz on 11-10-2022 INR Coag (PPP) [Relative time] 1.0 {INR} Invalid Interpretation Code Auto Coag SS PT Coag (PPP) [Time] 12.1 s Invalid Interpretation Code 9.0 - 14.8 seconds Auto Coag SS Absolute lymphocyte countOrd ered By: Dr. Singh on 10-16-2022 Lymphocytes Auto (Unsp spec) [#/Vol] 0.84 10*3/uL 0.83-4.51 [facility] Basophil percentageOrdered B y: Dr. Singh on 10-16-2022 Basophils/100 WBC (Bld) 0.2 % 0-1 [facility] Chloride [Moles/Vol] 106 mmol/L 98-107 [facility] Eosinophils/100 WBC (Bld) 1.6 % 0-5 [facility] Glucose [Mass/Vol] 117 mg/dL 74-106 [facility] Comment on above: Fasting Glucose resu lt from 100 to 125 mg/dL suggests IMPAIRED HOMEOSTASIS per A.D.A. criteria. Neutrophils (Bld) [#/Vol] 4.2 10*3/uL 2.0-7.7 [facility] Neutrophils/100 WBC (Bld) 74.0 % 47-70 [facility] Potassium [Moles/Vol] 3.5 mmol/L 3.5-5.1 [facility] Sodium [Moles/Vol] 138 mmol/L 136-145 [facility] WBC (Bld) [#/Vol] 5.6 10*3/uL 4.4-11.0 [facility] Basophil percentageOrdered B y: ED PROVIDER on 10-16-2022 Basophil percentage 0-5 SEEN /hpf 0-5 [facility] Bilirubin Test strip Ql (U)O rdered By: ED PROVIDER on 10-16-2022 Bilirubin Ql (U) Negative Negative [facility] Blood erythrocytes count (nu mber/volume)Ordered By: Dr. Singh on 10-16-2022 RBC (Bld) [#/Vol] 4.50 10*6/uL 4.6-6.2 [facility] Blood hemoglobin measurement (mass/volume)Ordered By: Dr. Singh on 10-16-2022 Hemoglobin (Bld) [Mass/Vol] 13.4 g/dL 13.0-16.5 [facility] Blood lymphocytes/100 leukoc ytesOrdered By: Dr. Singh on 10-16-2022 Lymphocytes/100 WBC (Bld) 14.9 % 19-41 [facility] Blood monocytes/100 leukocyt esOrdered By: Dr. Singh on 10-16-2022 Monocytes/100 WBC (Bld) 8.9 % 0-10 [facility] Blood platelet mean volumeOr dered By: Dr. Singh on 10-16-2022 Platelet mean volume (Bld) [Entitic vol] 11.7 fL 6.2-12.0 [facility] Determination of erythrocyte mean corpuscular volume (MCV)Ordered By: Dr. Singh on 10-16-2022 MCV (RBC) [Entitic vol] 92.0 fL 80-94 [facility] Hematocrit Auto (Bld) [Volum e fraction]Ordered By: Dr. Singh on 10-16-2022 Hematocrit (Bld) [Volume fraction] 41.4 % 40-54 [facility] Ketones Test strip Ql (U)Ord ered By: ED PROVIDER on 10-16-2022 Ketones Ql (U) Negative Negative [facility] Laboratory - Chemistry and C hemistry - challengeOrdered By: Dr. Singh on 10-16-2022 CO2 [Moles/Vol] 29.0 mmol/L 21.0-32.0 [facility] Urea nitrogen/Creatinine [Mass ratio] 27.1 mg/mg 10-20 [facility] Laboratory - Hematology and Cell countsOrdered By: Dr. Singh on 10-16-2022 Erythrocyte distribution width (RBC) [Entitic vol] 48.7 fL 35.1-43.9 [facility] Erythrocyte distribution width (RBC) [Ratio] 14.4 % 11.6-14.6 [facility] Immature granulocytes/100 WBC (Bld) 0.400 % 0.0-0.9 [facility] Comment on above: IG% - Immature Granu locytes (promyelocytes, myelocytes and metamyelocytes) > 1% indicates that a LEFT SHIFT is Present. MCH (RBC) [Entitic mass] 29.8 pg 27.0-32.0 [facility] Nucleated RBC/100 WBC (Bld) [Ratio] 0 % 0-5 [facility] MCHC Auto (RBC) [Mass/Vol]Or dered By: Dr. Singh on 10-16-2022 MCHC (RBC) [Mass/Vol] 32.4 g/dL 32-36 [facility] Mucus LM Ql (Urine sed)Order ed By: ED PROVIDER on 10-16-2022 Mucus Ql (Urine sed) 0 SEEN /hpf [facility] Nitrite Test strip Ql (U)Ord ered By: ED PROVIDER on 10-16-2022 Nitrite Ql (U) Negative Negative [facility] No Panel InformationOrdered By: Dr. Singh on 10-16-2022 Estimated Creatinine Clearance Calc 73.68 ml/min [facility] Estimated GFR (MDRD) Amer 110 mL/min >60 [facility] Comment on above: GFR Calc Estimated GFR (MDRD) Non-Af Amer 91 mL/min >60 [facility] Comment on above: Non- GFR Calc Platelets bldOrdered By: Dr. Singh on 10-16-2022 Platelets (Bld) [#/Vol] 163 10*3/uL 150-450 [facility] Protein Test strip Ql (U)Ord ered By: ED PROVIDER on 10-16-2022 Protein Ql (U) 15 mg/dl Negative [facility] Serum or plasma calcium nallely urement (mass/volume)Ordered By: Dr. Singh on 10-16-2022 Calcium [Mass/Vol] 8.6 mg/dL 8.5-10.1 [facility] Serum or plasma creatinine m easurement (mass/volume)Ordered By: Dr. Singh on 10-16-2022 Creatinine [Mass/Vol] 0.89 mg/dL 0.70-1.30 [facility] Comment on above: The validity of the calculated GFR & GFRAA in patients over 70 years has not been determined. Clinical correlation is essential. Serum or plasma urea nitroge n measurement (mass/volume)Ordered By: Dr. Singh on 10-16-2022 Urea nitrogen [Mass/Vol] 24 mg/dL 7-18 [facility] Squamous epithelial cells de tection in urine sediment by light microscopyOrdered By: ED PROVIDER on 10-16-2022 Epithelial cells.squamous LM Ql (Urine sed) 0 SEEN /hpf 0-5 [facility] Thin prep Papanicolaou smear with manual screeningOrdered By: Dr. Singh on 10-16-2022 Thin prep Papanicolaou smear with manual screening 3 5-15 [facility] Urine blood detectionOrdered By: ED PROVIDER on 10-16-2022 RBC Ql (U) 50 /ul Negative [facility] RBC Ql (U) 0 SEEN /hpf 0-5 [facility] Urine clarityOrdered By: ED PROVIDER on 10-16-2022 Clarity (U) Clear Clear [facility] Urine color determinationOrd ered By: ED PROVIDER on 10-16-2022 Color (U) Yellow Yellow [facility] Urine glucose detectionOrder ed By: ED PROVIDER on 10-16-2022 Glucose Ql (U) Normal mg/dl Normal [facility] Urine leukocyte esterase det ection by dipstickOrdered By: ED PROVIDER on 10-16-2022 Leukocyte esterase Test strip Ql (U) 25 /ul Negative [facility] Urine pHOrdered By: ED PROVI TERESA on 10-16-2022 pH (U) 5.0 [pH] 5.0 - 8.0 [facility] Urine sediment bacteria coun t by microscopy (number/high power field)Ordered By: ED PROVIDER on 10-16-2022 Bacteria LM.HPF (Urine sed) [#/Area] 0 /[HPF] None Seen [facility] Urine specific gravity measu rementOrdered By: ED PROVIDER on 10-16-2022 Specific gravity (U) [Rel density] 1.020 1.002-1.030 [facility] Urobilinogen Auto test strip Ql (U)Ordered By: ED PROVIDER on 10-16-2022 Urobilinogen Ql (U) Normal mg/dl Normal [facility] Absolute lymphocyte countOrd ered By: Anna Jones on 09-12-2022 Lymphocytes Auto (Unsp spec) [#/Vol] 1.45 10*3/uL 0.83-4.51 [facility] Basophil percentageOrdered B y: Anna Jones on 09-12-2022 Basophils/100 WBC (Bld) 0.5 % 0-1 [facility] Eosinophils/100 WBC (Bld) 1.1 % 0-5 [facility] Neutrophils (Bld) [#/Vol] 6.0 10*3/uL 2.0-7.7 [facility] Neutrophils/100 WBC (Bld) 72.4 % 47-70 [facility] WBC (Bld) [#/Vol] 8.3 10*3/uL 4.4-11.0 [facility] Blood erythrocytes count (nu mber/volume)Ordered By: Anna Jones on 09-12-2022 RBC (Bld) [#/Vol] 5.00 10*6/uL 4.6-6.2 [facility] Blood hemoglobin measurement (mass/volume)Ordered By: Anna Jones on 09-12-2022 Hemoglobin (Bld) [Mass/Vol] 14.6 g/dL 13.0-16.5 [facility] Blood lymphocytes/100 leukoc ytesOrdered By: Anna Jones on 09-12-2022 Lymphocytes/100 WBC (Bld) 17.5 % 19-41 [facility] Blood monocytes/100 leukocyt esOrdered By: Anna Jones on 09-12-2022 Monocytes/100 WBC (Bld) 8.0 % 0-10 [facility] Blood platelet mean volumeOr dered By: Anna Jones on 09-12-2022 Platelet mean volume (Bld) [Entitic vol] 11.4 fL 6.2-12.0 [facility] Determination of erythrocyte mean corpuscular volume (MCV)Ordered By: Anna Jones on 09-12-2022 MCV (RBC) [Entitic vol] 90.8 fL 80-94 [facility] Hematocrit Auto (Bld) [Volum e fraction]Ordered By: Anna Jones on 03-06-2023 Hematocrit (Bld) [Volume fraction] 45.4 % 40-54 [facility] Laboratory - Chemistry and C hemistry - challengeOrdered By: Anna Jones on 09-12-2022 Free T4 [Mass/Vol] 0.96 ng/dL 0.76-1.46 [facility] Laboratory - Hematology and Cell countsOrdered By: Anna Jones on 09-12-2022 Erythrocyte distribution width (RBC) [Entitic vol] 44.9 fL 35.1-43.9 [facility] Erythrocyte distribution width (RBC) [Ratio] 13.4 % 11.6-14.6 [facility] Immature granulocytes/100 WBC (Bld) 0.500 % 0.0-0.9 [facility] Comment on above: IG% - Immature Granu locytes (promyelocytes, myelocytes and metamyelocytes) > 1% indicates that a LEFT SHIFT is Present. MCH (RBC) [Entitic mass] 29.2 pg 27.0-32.0 [facility] Nucleated RBC/100 WBC (Bld) [Ratio] 0 % 0-5 [facility] MCHC Auto (RBC) [Mass/Vol]Or dered By: Anna Jones on 09-12-2022 MCHC (RBC) [Mass/Vol] 32.2 g/dL 32-36 [facility] No Panel InformationOrdered By: Anna Jones on 09-12-2022 Thyroid Stimulating Hormone (TSH) 1.32 uIU/mL 0.358-3.74 [facility] Platelets bldOrdered By: Gage Jones on 09-12-2022 Platelets (Bld) [#/Vol] 220 10*3/uL 150-450 [facility] Basophil percentageon 2021 Chloride [Moles/Vol] 103 mmol/L 98-107 [facility] Work Phone: Glucose [Mass/Vol] 93 mg/dL 74-106 [facility] Work Phone: Potassium [Moles/Vol] 3.6 mmol/L 3.5-5.1 [facility] Work Phone: Sodium [Moles/Vol] 137 mmol/L 136-145 [facility] Work Phone: Laboratory - Chemistry and C hemistry - challengeon 05-26-2022 CO2 [Moles/Vol] 28.0 mmol/L 21.0-32.0 [facility] Work Phone: Natriuretic peptide B (Bld) [Mass/Vol] 14.0 pg/mL 0-100 [facility] Work Phone: Urea nitrogen/Creatinine [Mass ratio] 25.0 mg/mg 10-20 [facility] Work Phone: No Panel Informationon 05-26 Estimated GFR (MDRD) Amer 132 mL/min >60 [facility] Work Phone: Comment on above: GFR Calc Estimated GFR (MDRD) Non-Af Amer 109 mL/min >60 [facility] Work Phone: Comment on above: Non- GFR Calc Serum or plasma calcium nallely urement (mass/volume)on 05-26-2022 Calcium [Mass/Vol] 9.5 mg/dL 8.5-10.1 [facility] Work Phone: Serum or plasma creatinine m easurement (mass/volume)on 05-26-2022 Creatinine [Mass/Vol] 0.76 mg/dL 0.70-1.30 [facility] Work Phone: Comment on above: The validity of the calculated GFR & GFRAA in patients over 70 years has not been determined. Clinical correlation is essential. Serum or plasma urea nitroge n measurement (mass/volume)on 05-26-2022 Urea nitrogen [Mass/Vol] 19 mg/dL 7-18 [facility] Work Phone: Thin prep Papanicolaou smear with manual screeningon 05-26-2022 Thin prep Papanicolaou smear with manual screening 6 5-15 [facility] Work Phone: No Panel Informationon 05-17 Troponin I High Sensitivity 9 pg/mL 3.0-78.0 [facility] Work Phone: Comment on above: Please Note: New [place] t Units and Gender Specific Reference Ranges. For more information see Policy Stat Procedure [place] High Sensitivity Troponin (TNIH) and attachments. Absolute lymphocyte counton 05-16-2022 Lymphocytes Auto (Unsp spec) [#/Vol] 1.23 10*3/uL 0.83-4.51 [facility] Work Phone: Basophil percentageon 2021 Basophil percentage 10-25 SEEN /hpf 0-5 [facility] Work Phone: Basophils/100 WBC (Bld) 0.4 % 0-1 [facility] Work Phone: Chloride [Moles/Vol] 107 mmol/L 98-107 [facility] Work [facility]: Eosinophils/100 WBC (Bld) 1.2 % 0-5 [facility] Work Phone: Glucose [Mass/Vol] 104 mg/dL 74-106 [facility] Work Phone: Comment on above: Fasting Glucose resu lt from 100 to 125 mg/dL suggests IMPAIRED HOMEOSTASIS per A.D.A. criteria. Neutrophils (Bld) [#/Vol] 5.6 10*3/uL 2.0-7.7 [facility] Work Phone: Neutrophils/100 WBC (Bld) 73.5 % 47-70 [facility] Work Phone: Potassium [Moles/Vol] 3.4 mmol/L 3.5-5.1 [facility] Work Phone: Sodium [Moles/Vol] 143 mmol/L 136-145 [facility] Work Phone: WBC (Bld) [#/Vol] 7.6 10*3/uL 4.4-11.0 [facility] Work Phone: Bilirubin Test strip Ql (U)o n 05-16-2022 Bilirubin Ql (U) Negative Negative [facility] Work Phone: Blood erythrocytes count (nu mber/volume)on 05-16-2022 RBC (Bld) [#/Vol] 4.14 10*6/uL 4.6-6.2 [facility] Work Phone: Blood hemoglobin measurement (mass/volume)on 05-16-2022 Hemoglobin (Bld) [Mass/Vol] 12.4 g/dL 13.0-16.5 [facility] Work Phone: Blood lymphocytes/100 leukoc yteson 05-16-2022 Lymphocytes/100 WBC (Bld) 16.1 % 19-41 [facility] Work Phone: Blood monocytes/100 leukocyt eson 05-16-2022 Monocytes/100 WBC (Bld) 8.4 % 0-10 [facility] Work Phone: Blood platelet mean volumeon 05-16-2022 Platelet mean volume (Bld) [Entitic vol] 11.7 fL 6.2-12.0 [facility] Work Phone: Determination of erythrocyte mean corpuscular volume (MCV)on 05-16-2022 MCV (RBC) [Entitic vol] 90.6 fL 80-94 [facility] Work Phone: Hematocrit Auto (Bld) [Volum e fraction]on 05-16-2022 Hematocrit (Bld) [Volume fraction] 37.5 % 40-54 [facility] Work Phone: Hyaline casts LM.LPF (Urine sed) [#/Area]on 05-16-2022 Hyaline casts (Urine sed) [#/Area] 0 /[LPF] 0-5 [facility] Work Phone: Ketones Test strip Ql (U)on 05-16-2022 Ketones Ql (U) Negative Negative [facility] Work Phone: Laboratory - Chemistry and C hemistry - challengeon 05-16-2022 CO2 [Moles/Vol] 31.0 mmol/L 21.0-32.0 [facility] Work Phone: Magnesium [Mass/Vol] 1.8 mg/dL 1.6-2.6 [facility] Work Phone: Urea nitrogen/Creatinine [Mass ratio] 36.0 mg/mg 10-20 [facility] Work Phone: [phone] Laboratory - Hematology and Cell countson 05-16-2022 Erythrocyte distribution width (RBC) [Entitic vol] 45.4 fL 35.1-43.9 [facility] Work Phone: [phone] Erythrocyte distribution width (RBC) [Ratio] 13.6 % 11.6-14.6 [facility] Work Phone: [phone] Immature granulocytes/100 WBC (Bld) 0.400 % 0.0-0.9 [facility] Work Phone: [phone] Comment on above: IG% - Immature Granu locytes (promyelocytes, myelocytes and metamyelocytes) > 1% indicates that a LEFT SHIFT is Present. MCH (RBC) [Entitic mass] 30.0 pg 27.0-32.0 [facility] Work Phone: [phone] Nucleated RBC/100 WBC (Bld) [Ratio] 0 % 0-5 [facility] Work Phone: [phone] MCHC Auto (RBC) [Mass/Vol]on 05-16-2022 MCHC (RBC) [Mass/Vol] 33.1 g/dL 32-36 [facility] Work Phone: [phone] Mucus LM Ql (Urine sed)on Mucus Ql (Urine sed) 0 SEEN /hpf [facility] Work Phone: [phone] Nitrite Test strip Ql (U)on 05-16-2022 Nitrite Ql (U) Negative Negative [facility] Work Phone: [phone] No Panel Informationon 05-16 D-Dimer Quantitative (PE/DVT) 0.54 FEU/ug/m 0.27-0.49 [facility] Work Phone: [phone] Comment on above: D-Dimer ELEVATED (>0 .49): Additional studies and clinicalassessments are indicated to conclude diagnosis of:Deep Vein Thrombosis (DVT) or Pulmonary Embolism (PE)CRITICAL VALUE VERIFIED. CALLED TO Sheridan MINER RN ER05/16/22 Bambi Torres.RESULTS READ BACK BY SAME. Estimated Creatinine Clearance Calc 85.20 ml/min [facility] Work Phone: Estimated GFR (MDRD) Amer 129 mL/min >60 [facility] Work Phone: Comment on above: GFR Calc Estimated GFR (MDRD) Non-Af Amer 106 mL/min >60 [facility] Work Phone: Comment on above: Non- GFR Calc Platelets bldon 05-16-2022 Platelets (Bld) [#/Vol] 217 10*3/uL 150-450 [facility] Work Phone: Protein Test strip Ql (U)on 05-16-2022 Protein Ql (U) Negative Negative [facility] Work Phone: [phone] Serum or plasma calcium nallely urement (mass/volume)on 05-16-2022 Calcium [Mass/Vol] 8.4 mg/dL 8.5-10.1 [facility] Work Phone: [phone] Serum or plasma creatinine m easurement (mass/volume)on 05-16-2022 Creatinine [Mass/Vol] 0.78 mg/dL 0.70-1.30 [facility] Work Phone: Comment on above: The validity of the calculated GFR & GFRAA in patients over 70 years has not been determined. Clinical correlation is essential. Serum or plasma urea nitroge n measurement (mass/volume)on 05-16-2022 Urea nitrogen [Mass/Vol] 28 mg/dL 7-18 [facility] Work Phone: [phone] Squamous epithelial cells de tection in urine sediment by light microscopyon 05-16-2022 Epithelial cells.squamous LM Ql (Urine sed) 0-5 SEEN /hpf 0-5 [facility] Work Phone: [phone] Thin prep Papanicolaou smear with manual screeningon 05-16-2022 Thin prep Papanicolaou smear with manual screening 5 5-15 [facility] Work Phone: [phone] Urine blood detectionon RBC Ql (U) Negative Negative [facility] Work Phone: RBC Ql (U) 0 SEEN /hpf 0-5 [facility] Work Phone: Urine clarityon 05-16-2022 Clarity (U) Sl. Cloudy Clear [facility] Work Phone: Urine color determinationon 05-16-2022 Color (U) Yellow Yellow [facility] Work Phone: Urine glucose detectionon Glucose Ql (U) Normal mg/dl Normal [facility] Work Phone: Urine leukocyte esterase det ection by dipstickon 05-16-2022 Leukocyte esterase Test strip Ql (U) 500 /ul Negative [facility] Work Phone: Urine pHon 05-16-2022 pH (U) 7.0 [pH] 5.0 - 8.0 [facility] Work Phone: Urine sediment bacteria coun t by microscopy (number/high power field)on 05-16-2022 Bacteria LM.HPF (Urine sed) [#/Area] 1 /[HPF] None Seen [facility] Work Phone: Urine specific gravity measu rementon 05-16-2022 Specific gravity (U) [Rel density] 1.015 1.002-1.030 [facility] Work Phone: Urobilinogen Auto test strip Ql (U)on 05-16-2022 Urobilinogen Ql (U) 4 mg/dl Normal [facility] Work Phone: Culture, urine Bacteria identified Cx Nom (U) Positive [facility] Work Phone: Vital Signs Date Time Vital Sign Value Performing Clinician Facility 10-25-2024 07:50-0400 Body height 167.[address] Manasa Zendejas DO Work Phone: [facility] 10-25-2024 07:50-0400 Body mass index (BMI) [Ratio] 47.4 kg/m2 Dr. Manasa Zendejas DO Work Phone: [facility] 10-25-2024 07:50-0400 Body temperature 97.4 [degF] Dr. Manasa Zendejas DO Work Phone: [facility] 10-25-2024 07:50-0400 Body weight 133.[address] Manasa Zendejas DO Work Phone: [facility] 10-25-2024 07:50-0400 Diastolic blood pressure 82 mm[Hg] Dr. Manasa Zendejas DO Work Phone: [facility] 10-25-2024 07:50-0400 Heart rate 60 /min Dr. Manasa Zendejas DO Work Phone: [facility] 10-25-2024 07:50-0400 Respiratory rate 20 /min Dr. Manasa Zendejas DO Work Phone: [facility] 10-25-2024 07:50-0400 SaO2% (BldA) [Mass fraction] 96 % Dr. Manasa Zendejas DO Work Phone: [facility] 10-25-2024 07:50-0400 Systolic blood pressure 126 mm[Hg] Dr. Manasa Zendejas DO Work Phone: [facility] 10-07-2024 08:02-0400 Body height 167.[address] Manasa Zendejas DO Work Phone: [facility] 10-07-2024 08:02-0400 Body mass index (BMI) [Ratio] 47.6 kg/m2 Dr. Manasa Zendejas DO Work Phone: [facility] 10-07-2024 08:02-0400 Body temperature 97.3 [degF] Dr. Manasa Zendejas DO Work Phone: [facility] 10-07-2024 08:02-0400 Body weight 133.[address] Manasa Zendejas DO Work Phone: [facility] 10-07-2024 08:02-0400 Diastolic blood pressure 76 mm[Hg] Dr. Manasa Zendejas DO Work Phone: [facility] 10-07-2024 08:02-0400 Heart rate 59 /min Dr. Manasa Zendejas DO Work Phone: [facility] 10-07-2024 08:02-0400 Respiratory rate 20 /min Dr. Manasa Zendejas DO Work Phone: [facility] 10-07-2024 08:02-0400 SaO2% (BldA) [Mass fraction] 95 % Dr. Manasa Zendejas DO Work Phone: [facility] 10-07-2024 08:02-0400 Systolic blood pressure 113 mm[Hg] Dr. Manasa Zendejas DO Work Phone: [facility] 07-02-2024 09:58-0500 Body mass index (BMI) [Ratio] 46.3 kg/m2 Dr. Manasa Zendejas DO Work Phone: [facility] 07-02-2024 09:58-0500 Body temperature 98.2 [degF] Dr. Manasa Zendejas DO Work Phone: [facility] 07-02-2024 09:58-0500 Body weight 130.[address] Manasa Zendejas DO Work Phone: [facility] 07-02-2024 09:58-0500 Diastolic blood pressure 72 mm[Hg] Dr. Manasa Zendejas DO Work Phone: [facility] 07-02-2024 09:58-0500 Heart rate 82 /min Dr. Manasa Zendejas DO Work Phone: [facility] 07-02-2024 09:58-0500 Respiratory rate 18 /min Dr. Manasa Zendejas DO Work Phone: [facility] 07-02-2024 09:58-0500 SaO2% (BldA) [Mass fraction] 99 % Dr. Manasa Zendejas DO Work Phone: [facility] 07-02-2024 09:58-0500 Systolic blood pressure 135 mm[Hg] Dr. Manasa Zendejas DO Work Phone: [facility] 06-21-2024 07:41-0500 Body mass index (BMI) [Ratio] 46.7 kg/m2 Dr. Manasa Zendejas DO Work Phone: [facility] 06-21-2024 07:41-0500 Body temperature 97.7 [degF] Dr. Manasa Zendejas DO Work Phone: [facility] 06-21-2024 07:41-0500 Body weight 131.[address] Manasa Zendejas DO Work Phone: [facility] 06-21-2024 07:41-0500 Diastolic blood pressure 74 mm[Hg] Dr. Manasa Zendejas DO Work Phone: [facility] 06-21-2024 07:41-0500 Heart rate 75 /min Dr. Manasa Zendejas DO Work Phone: [facility] 06-21-2024 07:41-0500 Respiratory rate 20 /min Dr. Manasa Zendejas DO Work Phone: [facility] 06-21-2024 07:41-0500 SaO2% (BldA) [Mass fraction] 93 % Dr. Manasa Zendejas DO Work Phone: [facility] 06-21-2024 07:41-0500 Systolic blood pressure 111 mm[Hg] Dr. Manasa Zendejas DO Work Phone: [facility] 06-13-2024 09:10-0500 Diastolic Blood Pressure Non-Invasive 95 mm[Hg] RICKEY HUNG MD [facility][1] Pain Management 06-13-2024 09:10-0500 Heart rate 58 /min RICKEY HUNG MD [facility] 06-13-2024 09:10-0500 Respiratory rate 16 /min RICKEY HUNG MD [facility] 06-13-2024 09:10-0500 Systolic Blood Pressure Non-Invasive 114 mm[Hg] RICKEY HUNG MD [facility][1] Pain Management 06-13-2024 08:58-0500 Diastolic Blood Pressure Non-Invasive 69 mm[Hg] RICKEY HUNG MD [facility][1] Pain Management 06-13-2024 08:58-0500 Heart rate 69 /min RICKEY HUNG MD [facility] 06-13-2024 08:58-0500 Respiratory rate 16 /min RICKEY HUNG MD [facility] 06-13-2024 08:58-0500 Systolic Blood Pressure Non-Invasive 128 mm[Hg] RICKEY HUNG MD [facility] 06-13-2024 08:53-0500 Diastolic Blood Pressure Non-Invasive 107 mm[Hg] RICKEY HUNG MD [facility][1] Pain Management 06-13-2024 08:53-0500 Heart rate 81 /min RICKEY HUNG MD [facility][1] Pain Management 06-13-2024 08:53-0500 Respiratory rate 16 /min RICKEY HUNG MD [facility] 06-13-2024 08:53-0500 Systolic Blood Pressure Non-Invasive 145 mm[Hg] RICKEY HUNG MD [facility] 06-13-2024 08:08-0500 Blood Pressure Cuff Size RICKEY HUNG MD [facility] 06-13-2024 08:08-0500 Blood Pressure Location RICKEY HUNG MD [facility] 06-13-2024 08:08-0500 Blood Pressure Method RICKEY HUNG MD [facility] 06-13-2024 08:08-0500 Body height 152.4 cm RICKEY HUNG MD [facility] 06-13-2024 08:08-0500 Body weight 130.5 kg RICKEY HUNG MD [facility] 06-13-2024 08:08-0500 Body weight 56.19 kg/m2 RICKEY HUNG MD [facility] 06-13-2024 08:08-0500 Heart rate 64 /min RICKEY HUNG MD [facility] 01-30-2024 08:10-0400 Diastolic Blood Pressure Non-Invasive 67 mm[Hg] RICKEY HUNG MD [facility][1] Pain Management 01-30-2024 08:10-0400 Heart rate 54 /min RICKEY HUNG MD [facility][1] Pain Management 01-30-2024 08:10-0400 Respiratory rate 14 /min RICKEY HUNG MD [facility] 01-30-2024 08:10-0400 Systolic Blood Pressure Non-Invasive 104 mm[Hg] RICKEY HUNG MD [facility][1] Pain Management 01-30-2024 08:06-0400 Diastolic Blood Pressure Non-Invasive 65 mm[Hg] RICKEY HUNG MD [facility][1] Pain Management 01-30-2024 08:06-0400 Heart rate 54 /min RICKEY HUNG MD [facility] 01-30-2024 08:06-0400 Respiratory rate 14 /min RICKEY HUNG MD [facility] 01-30-2024 08:06-0400 Systolic Blood Pressure Non-Invasive 114 mm[Hg] RICKEY HUNG MD [facility] 01-30-2024 07:59-0400 Diastolic Blood Pressure Non-Invasive 77 mm[Hg] RICKEY HUNG MD [facility] 01-30-2024 07:59-0400 Heart rate 55 /min RICKEY HUNG MD [facility] 01-30-2024 07:59-0400 Respiratory rate 16 /min RICKEY HUNG MD [facility] 01-30-2024 07:59-0400 Systolic Blood Pressure Non-Invasive 150 mm[Hg] RICKEY HUNG MD [facility] 01-30-2024 07:55-0400 Heart rate 59 /min RICKEY HUNG MD [facility] 01-30-2024 07:17-0400 Body height 167 cm RICKEY HUNG MD [facility] 01-30-2024 07:17-0400 Body weight 129 kg RICKEY HUNG MD [facility] 01-30-2024 07:17-0400 Body weight 46.25 kg/m2 RICKEY HUNG MD [facility] 01-30-2024 07:17-0400 Heart rate 56 /min RICKEY HUNG MD [facility] 07-27-2023 10:39-0500 Diastolic blood pressure 71 mm[Hg] [employer] [facility] 07-27-2023 10:39-0500 Heart rate 55 /min [employer] [facility] [facility] 07-27-2023 10:39-0500 Respiratory rate 12 /min MARCOS BANDA [employer] GRINDER LOADER-PROJECT ADMIN [facility] 07-27-2023 10:39-0500 Systolic blood pressure 117 mm[Hg] MARCOS BANDA [employer] GRINDER LOADER-PROJECT ADMIN [facility] 07-27-2023 10:31-0500 Diastolic Blood Pressure Non-Invasive 65 mm[Hg] MARCOS BANDA [employer] GRINDER LOADER-PROJECT ADMIN [facility] 07-27-2023 10:31-0500 Heart rate 56 /min MARCOS SOLO MAGAZINE GRINDER LOADER-PROJECT ADMIN [facility] 07-27-2023 10:31-0500 Respiratory rate 12 /min MARCOS SOLO [employer] GRINDER LOADER-PROJECT ADMIN [facility] 07-27-2023 10:31-0500 Systolic Blood Pressure Non-Invasive 124 mm[Hg] MARCOS SOLO MAGAZINE GRINDER LOADER-PROJECT ADMIN [facility] 07-27-2023 10:21-0500 Diastolic Blood Pressure Non-Invasive 75 mm[Hg] MARCOS SOLO MAGAZINE GRINDER LOADER-PROJECT ADMIN [facility] 07-27-2023 10:21-0500 Heart rate 63 /min MARCOS SOLO MAGAZINE GRINDER LOADER-PROJECT ADMIN [facility][1] [facility] 07-27-2023 10:21-0500 Respiratory rate 18 /min MARCOS SOLO [employer] GRINDER LOADER-PROJECT ADMIN [facility][1] [facility] 07-27-2023 10:21-0500 Systolic Blood Pressure Non-Invasive 112 mm[Hg] MARCOS SOLO MAG[employer] GRINDER LOADER-PROJECT ADMIN [facility] 07-27-2023 10:16-0500 Diastolic Blood Pressure Non-Invasive 66 mm[Hg] MARCOS SOLO MAG[employer] GRINDER LOADER-PROJECT ADMIN [facility] 07-27-2023 10:16-0500 Heart rate 57 /min MARCOS SOLO MAG[employer]INE GRINDER LOADER-PROJECT ADMIN [facility] 07-27-2023 10:16-0500 Systolic Blood Pressure Non-Invasive 115 mm[Hg] MARCOS SOLO [employer] GRINDER LOADER-PROJECT ADMIN [facility] 07-27-2023 09:17-0500 Body height 167.6 cm MARCOS SOLO [employer] GRINDER LOADER-PROJECT ADMIN [facility][1] Pain Management 07-27-2023 09:17-0500 Body weight 122.6 kg MARCOS BANDA [employer] GRINDER LOADER-PROJECT ADMIN [facility][1] [facility] Management 07-27-2023 09:17-0500 Body weight 43.65 kg/m2 MARCOS BANDA [employer] GRINDER LOADER-PROJECT ADMIN [facility][1] [facility] Management 07-27-2023 09:17-0500 Heart rate 62 /min MARCOS BANDA [employer] GRINDER LOADER-PROJECT ADMIN [facility][1] [facility] 03-15-2023 09:23-0400 Blood Pressure Cuff Size GOKUL JANG MAGAZINE GRINDER LOADER-STENCILING MACHINE TENDER [facility] 03-15-2023 09:23-0400 Blood Pressure Location GOKUL JANG MAGAZINE GRINDER LOADER-STENCILING MACHINE TENDER [facility][1] Pain Management 03-15-2023 09:23-0400 Blood Pressure Method GOKUL JANG MAGAZINE GRINDER LOADER-STENCILING MACHINE TENDER [facility][1] Pain Management 03-15-2023 09:23-0400 Diastolic Blood Pressure Non-Invasive 82 1 GKOUL JANG MAGAZINE GRINDER LOADER-STENCILING MACHINE TENDER [facility][1] Pain Management 03-15-2023 09:23-0400 Heart rate 56 /min GOKUL JANG MAGAZINE GRINDER LOADER-STENCILING MACHINE TENDER [facility][1] Pain Management 03-15-2023 09:23-0400 Respiratory rate 11 /min GOKUL JANG MAGAZINE GRINDER LOADER-STENCILING MACHINE TENDER [facility][1] [facility] Management 03-15-2023 09:23-0400 Systolic Blood Pressure Non-Invasive 115 1 GOKUL JANG MAGAZINE GRINDER LOADER-STENCILING MACHINE TENDER [facility] 03-15-2023 09:18-0400 Diastolic Blood Pressure Non-Invasive 71 1 GOKUL JANG MAGAZINE GRINDER LOADER-STENCILING MACHINE TENDER [facility] 03-15-2023 09:18-0400 Heart rate 54 /min GOKUL JANG MAGAZINE GRINDER LOADER-STENCILING MACHINE TENDER [facility] 03-15-2023 09:18-0400 Respiratory rate 14 /min GOKUL JANG MAGAZINE GRINDER LOADER-STENCILING MACHINE TENDER [facility] 03-15-2023 09:18-0400 Systolic Blood Pressure Non-Invasive 127 1 GOKUL JANG MAGAZINE GRINDER LOADER-STENCILING MACHINE TENDER [facility] 03-15-2023 09:16-0400 Blood Pressure Cuff Size GOKUL JANG MAGAZINE GRINDER LOADER-STENCILING MACHINE TENDER [facility] 03-15-2023 09:16-0400 Blood Pressure Location GOKUL JANG MAGAZINE GRINDER LOADER-STENCILING MACHINE TENDER [facility] 03-15-2023 09:16-0400 Blood Pressure Method GOKUL JANG MAGAZINE GRINDER LOADER-STENCILING MACHINE TENDER [facility] 03-15-2023 09:16-0400 Diastolic Blood Pressure Non-Invasive 76 1 GOKUL JANG MAGAZINE GRINDER LOADER-STENCILING MACHINE TENDER [facility] 03-15-2023 09:16-0400 Heart rate 57 /min GOKUL JANG MAGAZINE GRINDER LOADER-STENCILING MACHINE TENDER [facility] 03-15-2023 09:16-0400 Respiratory rate 17 /min GOKUL JANG MAGAZINE GRINDER LOADER-STENCILING MACHINE TENDER [facility] 03-15-2023 09:16-0400 Systolic Blood Pressure Non-Invasive 129 1 GOKUL JANG MAGAZINE GRINDER LOADER-STENCILING MACHINE TENDER [facility] 03-15-2023 09:06-0400 Heart rate 62 /min GOKUL JANG MAGAZINE GRINDER LOADER-STENCILING MACHINE TENDER [facility] 03-15-2023 08:24-0400 Blood Pressure Location GOKUL JANG MAGAZINE GRINDER LOADER-STENCILING MACHINE TENDER [facility][1] [facility] Management 03-15-2023 08:24-0400 Blood Pressure Method GOKUL JANG MAGAZINE GRINDER LOADER-STENCILING MACHINE TENDER [facility] 03-15-2023 08:24-0400 Body height 167.6 cm GOKUL JAGN MAGAZINE GRINDER LOADER-STENCILING MACHINE TENDER [facility] 03-15-2023 08:24-0400 Body weight 116.8 kg GOKUL JANG MAGAZINE GRINDER LOADER-STENCILING MACHINE TENDER [facility] 03-15-2023 08:24-0400 Body weight 41.58 kg/m2 GOKUL JANG MAGAZINE GRINDER LOADER-STENCILING MACHINE TENDER [facility] 02-09-2023 09:55-0400 Body height 167.[address] Manasa Zendejas Work Phone: [facility] 02-09-2023 09:55-0400 Body mass index (BMI) [Ratio] 41.9 kg/m2 Dr. Manasa Zendejas Work Phone: [facility] 02-09-2023 09:55-0400 Body weight 117.[address] Manasa Zendejas Work Phone: [facility] 02-09-2023 09:55-0400 Diastolic blood pressure 77 mm[Hg] Dr. Manasa Zendejas Work Phone: [facility] 02-09-2023 09:55-0400 Heart rate 56 /min Dr. Manasa Zendejas Work Phone: [facility] 02-09-2023 09:55-0400 Respiratory rate 18 /min Dr. Manasa Zendejas Work Phone: [facility] 02-09-2023 09:55-0400 Systolic blood pressure 116 mm[Hg] Dr. Manasa Zendejas Work Phone: [facility] 11-11-2022 09:18-0400 Diastolic Blood Pressure Non-Invasive 66 1 HERVE OLIVAREZ MD [address] [place] [address] 11-11-2022 09:18-0400 Heart rate 56 /min HERVE OLIVAREZ MD [address] [place] [address] 11-11-2022 09:18-0400 Respiratory rate 18 /min HERVE OLIVAREZ MD [address] [place] [address] 11-11-2022 09:18-0400 Systolic Blood Pressure Non-Invasive 112 1 HERVE OLIVAREZ MD [address] [place] [address] 11-11-2022 03:30-0400 Body temperature 98.24 [degF] HERVE OLIVAREZ MD [address] [place] [address] 11-11-2022 03:30-0400 Diastolic Blood Pressure Non-Invasive 74 1 HERVE OLIVAREZ MD [address] [place] [address] 11-11-2022 03:30-0400 Heart rate 54 /min HERVE OLIVAREZ MD [address] [place] [address] 11-11-2022 03:30-0400 Reason For Taking VItal Signs HERVE OLIVAREZ MD [address] [place] [address] 11-11-2022 03:30-0400 Respiratory rate 16 /min HERVE OLIVAREZ MD [address] [place] [address] 11-11-2022 03:30-0400 Systolic Blood Pressure Non-Invasive 111 1 HERVE OLIVAREZ MD [address] [place] [address] 11-11-2022 02:16-0400 Heart rate 66 /min HERVE OLIVAREZ MD [address] [place] [address] 11-11-2022 00:09-0400 Heart rate 60 /min HERVE OLIVAREZ MD [address] [place] [address] 11-10-2022 21:59-0400 Heart rate 61 /min HERVE OLIVAREZ MD [address] [place] [address] 11-10-2022 19:47-0400 Body temperature 99.14 [degF] HERVE OLIVAREZ MD [address] [place] [address] 11-10-2022 19:47-0400 Diastolic Blood Pressure Non-Invasive 67 1 HERVE OLIVAREZ MD [address] [place] [address] 11-10-2022 19:47-0400 Respiratory rate 18 /min HERVE OLIVAREZ MD [address] [place] [address] 11-10-2022 19:47-0400 Systolic Blood Pressure Non-Invasive 90 1 HERVE OLIVAREZ MD [address] [place] [address] 11-10-2022 18:13-0400 Heart rate 68 /min HERVE OLIVAREZ MD [address] [place] [address] 11-10-2022 11:10-0400 Body temperature 97.16 [degF] HERVE OLIVAREZ MD [address] [place] [address] 11-10-2022 11:05-0400 Respiratory Rate - Anes 40 br/min HERVE OLIVAREZ MD [address] [place] [address] 11-10-2022 11:00-0400 Respiratory Rate - Anes 26 br/min HERVE OLIVAREZ MD [address] [place] [address] 11-10-2022 10:55-0400 Respiratory Rate - Anes 13 br/min HERVE OLIVAREZ MD [address] [place] [address] 11-10-2022 10:45-0400 Body temperature 95.4 [degF] HERVE OLIVAREZ MD [address] [place] [address] 11-10-2022 10:40-0400 Body temperature 95.43 [degF] HERVE OLIVAREZ MD [address] [place] [address] 11-10-2022 10:35-0400 Body temperature 95.43 [degF] HERVE OLIVAREZ MD [address] [place] [address] 11-10-2022 06:22-0400 Blood Pressure Cuff Size HERVE OLIVAREZ MD [address] [place] [address] 11-10-2022 06:22-0400 Blood Pressure Location HERVE OLIVAREZ MD [facility] 11-10-2022 06:22-0400 Blood Pressure Method HERVE OLVIAREZ MD [facility] 11-10-2022 06:22-0400 Body height 167.6 cm HERVE OLIVAREZ MD [address] [place] [address] 11-10-2022 06:22-0400 Body temperature 97.7 [degF] HERVE OLIVAREZ MD [address] [place] [address] 11-10-2022 06:22-0400 Body weight 116.5 kg HERVE OLIVAREZ MD [address] 11-10-2022 06:22-0400 Body weight 41.47 kg/m2 HERVE OLIVAREZ MD [address] 10-16-2022 08:03-0400 Diastolic blood pressure 52 mm[Hg] Dr. Manasa Zendejas Work Phone: [facility] 10-16-2022 08:03-0400 Heart rate 70 /min Dr. Manasa Zendejas Work Phone: [facility] 10-16-2022 08:03-0400 Respiratory rate 18 /min Dr. Manasa Zendejas Work Phone: [facility] 10-16-2022 08:03-0400 SaO2% (BldA) [Mass fraction] 100 % Dr. Manasa Zendejas Work Phone: [facility] 10-16-2022 08:03-0400 Systolic blood pressure 123 mm[Hg] Dr. Manasa Zendejas Work Phone: [facility] 10-16-2022 06:37-0400 Body height 167.[address] Manasa Zendejas Work Phone: [facility] 10-16-2022 06:37-0400 Body mass index (BMI) [Ratio] 40.8 kg/m2 Dr. Manasa Zendejas Work Phone: [facility] 10-16-2022 06:37-0400 Body temperature 98 [degF] Dr. Manasa Zendejas Work Phone: [facility] 10-16-2022 06:37-0400 Body weight 114.[address] Manasa Zendejas Work Phone: [facility] 09-21-2022 09:25-0400 Diastolic Blood Pressure Non-Invasive 68 1 RICKEY HUNG MD [facility] 09-21-2022 09:25-0400 Heart rate 54 /min RICKEY HUNG MD [facility] 09-21-2022 09:25-0400 Respiratory rate 20 /min RICKEY HUNG MD [facility] 09-21-2022 09:25-0400 Systolic Blood Pressure Non-Invasive 108 1 RICKEY HUNG MD [facility] 09-21-2022 09:08-0400 Diastolic Blood Pressure Non-Invasive 71 1 RICKEY HUNG MD [facility] 09-21-2022 09:08-0400 Heart rate 54 /min RICKEY HUNG MD [facility] 09-21-2022 09:08-0400 Respiratory rate 15 /min RICKEY HUNG MD [facility] 09-21-2022 09:08-0400 Systolic Blood Pressure Non-Invasive 112 1 RICKEY HUNG MD [facility] 09-21-2022 09:04-0400 Diastolic Blood Pressure Non-Invasive 81 1 RICKEY HUNG MD [facility] 09-21-2022 09:04-0400 Heart rate 58 /min RICKEY HUNG MD [facility] 09-21-2022 09:04-0400 Respiratory rate 22 /min RICKEY HUNG MD [facility] 09-21-2022 09:04-0400 Systolic Blood Pressure Non-Invasive 128 1 RICKEY HUNG MD [facility] 09-21-2022 08:30-0400 Blood Pressure Cuff Size RICKEY HUNG MD [facility] 09-21-2022 08:30-0400 Blood Pressure Location RICKEY HUNG MD [facility] 09-21-2022 08:30-0400 Blood Pressure Method RICKEY HUNG MD [facility] 09-21-2022 08:30-0400 Body height 167 cm RICKEY HUNG MD [facility] 09-21-2022 08:30-0400 Heart rate 58 /min RICKEY HUNG MD [facility] 09-12-2022 10:08-0500 Body mass index (BMI) [Ratio] 41.9 kg/m2 Dr. Manasa Zendejas Work Phone: [facility] 09-12-2022 10:08-0500 Body weight 117.[address] Manasa Zendejas Work Phone: [facility] 09-12-2022 10:08-0500 Diastolic blood pressure 79 mm[Hg] Dr. Manasa Zendejas Work Phone: [facility] 09-12-2022 10:08-0500 Heart rate 74 /min Dr. Manasa Zendejas Work Phone: [facility] 09-12-2022 10:08-0500 Respiratory rate 18 /min Dr. Manasa Zendejas Work Phone: [facility] 09-12-2022 10:08-0500 SaO2% (BldA) [Mass fraction] 99 % Dr. Manasa Zendejas Work Phone: [facility] 09-12-2022 10:08-0500 Systolic blood pressure 125 mm[Hg] Dr. Manasa Zendejas Work Phone: [facility] 07-27-2022 13:29-0500 Body mass index (BMI) [Ratio] 42.1 kg/m2 Dr. Manasa Zendejas Work Phone: [facility] 07-27-2022 13:29-0500 Body weight 118.[address] Manasa Zendejas Work Phone: [facility] 07-27-2022 13:29-0500 Diastolic blood pressure 60 mm[Hg] Dr. Manasa Zendejas Work Phone: [facility] 07-27-2022 13:29-0500 Heart rate 48 /min Dr. Manasa Zendejas Work Phone: [facility] 07-27-2022 13:29-0500 Respiratory rate 16 /min Dr. Manasa Zendejas Work Phone: [facility] 07-27-2022 13:29-0500 Systolic blood pressure 100 mm[Hg] Dr. Manasa Zendejas Work Phone: [facility] 05-26-2022 10:28-0500 Body height 167.[address] Manasa Zendejas Work Phone: [facility] Work Phone: 05-26-2022 10:28-0500 Body mass index (BMI) [Ratio] 43.2 kg/m2 Dr. Manasa Zendejas Work Phone: [facility] Work Phone: 05-26-2022 10:28-0500 Body weight 121.[address] Manasa Zendejas Work Phone: [facility] Work Phone: 05-26-2022 10:28-0500 Diastolic blood pressure 66 mm[Hg] Dr. Manasa Zendejas Work Phone: [facility] Work Phone: 05-26-2022 10:28-0500 Heart rate 75 /min Dr. Manasa Zendejas Work Phone: [facility] Work Phone: 05-26-2022 10:28-0500 Respiratory rate 18 /min Dr. Manasa Zendejas Work Phone: [facility] Work Phone: 05-26-2022 10:28-0500 Systolic blood pressure 107 mm[Hg] Dr. Manasa Zendejas Work Phone: [facility] Work Phone: 05-17-2022 01:54-0500 Diastolic blood pressure 62 mm[Hg] Dr. Manasa Zendejas Work Phone: [facility] Work Phone: 05-17-2022 01:54-0500 Heart rate 56 /min Dr. Manasa Zendejas Work Phone: [facility] Work Phone: 05-17-2022 01:54-0500 Respiratory rate 18 /min Dr. Manasa Zendejas Work Phone: [facility] Work Phone: 05-17-2022 01:54-0500 SaO2% (BldA) [Mass fraction] 100 % Dr. Manasa Zendejas Work Phone: [facility] Work Phone: 05-17-2022 01:54-0500 Systolic blood pressure 91 mm[Hg] Dr. Manasa Zendejas Work Phone: [facility] Work Phone: 05-16-2022 22:14-0500 Body height 167.[address] Manasa Zendejas Work Phone: [facility] Work Phone: 05-16-2022 22:14-0500 Body mass index (BMI) [Ratio] 44.1 kg/m2 Dr. Manasa Zendejas Work Phone: [facility] Work Phone: 05-16-2022 22:14-0500 Body temperature 98.4 [degF] Dr. Manasa Zendejas Work Phone: [facility] Work Phone: 05-16-2022 22:14-0500 Body weight [address] Manasa Zendejas Work Phone: [facility] Work Phone: 05-02-2022 10:31-0400 Body mass index (BMI) [Ratio] 43.4 kg/m2 Dr. Manasa Zendejas Work Phone: [facility] Work Phone: 05-02-2022 10:31-0400 Body temperature 97.5 [degF] Dr. Manasa Zendejas Work Phone: [facility] Work Phone: 05-02-2022 10:31-0400 Body weight 122.[address] Manasa Zendejas Work Phone: [facility] Work Phone: 05-02-2022 10:31-0400 Diastolic blood pressure 77 mm[Hg] Dr. Manasa Zendejas Work Phone: [facility] Work Phone: 05-02-2022 10:31-0400 Heart rate 64 /min Dr. Manasa Zendejas Work Phone: [facility] Work Phone: 05-02-2022 10:31-0400 Respiratory rate 20 /min Dr. Manasa Zendejas Work Phone: [facility] Work Phone: 05-02-2022 10:31-0400 SaO2% (BldA) [Mass fraction] 95 % Dr. Manasa Zendejas Work Phone: [facility] Work Phone: 05-02-2022 10:31-0400 Systolic blood pressure 113 mm[Hg] Dr. Manasa Zendejas Work Phone: [facility] Work Phone: 04-06-2022 08:35-0400 Diastolic blood pressure 89 mm[Hg] RICKEY HUNG MD [facility] 04-06-2022 08:35-0400 Heart rate 61 /min RICKEY HUNG MD [facility][1] [facility] 04-06-2022 08:35-0400 Respiratory rate 22 /min RICKEY HUNG MD [facility] 04-06-2022 08:35-0400 Systolic blood pressure 133 mm[Hg] RICKEY HUNG MD [facility][1] [facility] 04-06-2022 08:23-0400 Diastolic Blood Pressure NBP 88 1 RICKEY HUNG MD [facility][1] [facility] 04-06-2022 08:23-0400 Heart rate 63 /min RICKEY HUNG MD [facility][1] [facility] 04-06-2022 08:23-0400 Respiratory rate 15 /min RICKEY HUNG MD [facility][1] [facility] 04-06-2022 08:23-0400 Systolic Blood Pressure NBP 136 1 RICKEY HUNG MD [facility][1] [facility] Management 04-06-2022 08:10-0400 Diastolic Blood Pressure NBP 82 1 RICKEY HUNG MD [facility] 04-06-2022 08:10-0400 Heart rate 63 /min RICKEY HUNG MD [facility][1] [facility] Management 04-06-2022 08:10-0400 Respiratory rate 16 /min RICKEY HUNG MD [facility] 04-06-2022 08:10-0400 Systolic Blood Pressure NBP 110 1 RICKEY HUNG MD [facility] 04-06-2022 07:46-0400 Body height 167 cm RICKEY HUNG MD [facility] 04-06-2022 07:46-0400 Body weight 128 kg RICKEY HUNG MD [facility] 04-06-2022 07:46-0400 Body weight 45.9 kg/m2 RICKEY HUNG MD [facility] 04-06-2022 07:46-0400 diastolic 87 mm[Hg] RICKEY HUNG MD [facility] 04-06-2022 07:46-0400 Heart rate 64 /min RICKEY HUNG MD [facility] 04-06-2022 07:46-0400 systolic 163 mm[Hg] RICKEY HUNG MD [facility] 01-27-2022 06:17-0400 Body mass index (BMI) [Ratio] 48.9 kg/m2 Dr. Manasa Zendejas Work Phone: [facility] Work Phone: 01-27-2022 06:17-0400 Body temperature 97.9 [degF] Dr. Manasa Zendejas Work Phone: [facility] Work Phone: 01-27-2022 06:17-0400 Body weight 137.[address] Manasa Zendejas Work Phone: [facility] Work Phone: 01-27-2022 06:17-0400 Diastolic blood pressure 84 mm[Hg] Dr. Manasa Zendejas Work Phone: [facility] Work Phone: 01-27-2022 06:17-0400 Heart rate 69 /min Dr. Manasa Zendejas Work Phone: [facility] Work Phone: 01-27-2022 06:17-0400 Respiratory rate 17 /min Dr. Manasa Zendejas Work Phone: [facility] Work Phone: 01-27-2022 06:17-0400 SaO2% (BldA) [Mass fraction] 98 % Dr. Manasa Zendejas Work Phone: [facility] Work Phone: 01-27-2022 06:17-0400 Systolic blood pressure 126 mm[Hg] Dr. Manasa Zendejas Work Phone: [facility] Work Phone: Encounters Encounter Date Encounter Type Care Provider Facility Start: 12-17-2024 End: 12-17-2024 ambulatory RICKEY HUNG MD Facility:A Start: 12-17-2024 End: 12-17-2024 Anticoagulant drug monitoring RICKEY HUNG MD [facility][1] Pain Management Start: 11-20-2024 End: 11-24-2024 ambulatory MANASA ZENDEJAS DO Facility:[facility] Start: 11-20-2024 ambulatory JESUS NAGI MAGAZINE GRINDER LOADER-STENCILING MACHINE TENDER F acility:A Start: 11-07-2024 End: 11-07-2024 ambulatory JESUS NAGI MAGAZINE GRINDER LOADER-STENCILING MACHINE TENDER Facility:[facility] Start: 11-07-2024 End: 11-07-2024 Patient encounter procedure JESUS NAGI MAGAZINE GRINDER LOADER-STENCILING MACHINE TENDER [facility][1] Pain Management Start: 10-30-2024 End: 10-30-[address] Manasa Zendejas DO Work Phone: [facility] Work Phone: Start: 10-30-2024 End: 10-30-2024 Patient encounter procedure Cathy Ruiz NP-C -Pulmonary Services/Neurology Work Phone: Start: 10-30-2024 End: 10-30-2024 ambulatory Cathy Ruiz NP Facility:[facility] Start: 10-25-2024 End: 10-25-2024 Patient encounter procedure Cathy Ruiz NP-C -[facility] Work Phone: Start: 10-25-2024 End: 10-25-2024 ambulatory Cathy Ruiz NP Facility:[facility] Start: 10-15-2024 End: 10-15-[address] Manasa Zendejas DO Work Phone: [facility] Work Phone: Start: 10-15-2024 End: 10-15-2024 Patient encounter procedure Cathy Ruiz NP-C -[facility] Start: 10-15-2024 End: 10-15-2024 ambulatory Cathy Ruiz NP Facility:[facility] Start: 10-07-2024 End: 10-07-2024 Patient encounter procedure Cathy Ruiz NP-C -[facility] Work Phone: Start: 10-07-2024 End: 10-07-[address] Manasa Zendejas DO Work Phone: [facility] Work Phone: Start: 10-07-2024 End: 10-07-2024 ambulatory Cathy Ruiz NP Facility:[facility] Start: 09-30-2024 End: 09-30-2024 ambulatory MANASA ZENDEJAS DO [facility] Start: 09-11-2024 End: 09-11-2024 ambulatory JESUS LAZAR MAG[employer]INE GRINDER LOADER-STENCILING MACHINE TENDER Facility:[facility] Start: 09-11-2024 End: 09-11-2024 Patient encounter procedure 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 [facility][1] Pain Management Start: 08-23-2024 End: 08-23-2024 ambulatory MANASA ZENDEJAS DO [facility] Start: 08-23-2024 End: 08-23-2024 Patient encounter procedure MANASA ZENDEJAS DO [facility] Start: 07-02-2024 End: 07-02-2024 Emergency department patient visit Dr. Behzad Rivera DO -Emergency Department Work Phone: Start: 06-21-2024 End: 06-21-2024 Patient encounter procedure Cathy Ruiz NP-C -[facility] Work Phone: Start: 06-21-2024 End: 06-21-2024 ambulatory Manasa Zendejas Facility:[facility] Start: 06-13-2024 End: 06-13-2024 ambulatory MANASA ZENDEJAS DO Facility:[facility] Start: 06-13-2024 End: 06-13-2024 Anticoagulant drug monitoring RICKEY HUNG MD [facility][1] Pain Management Start: 05-22-2024 End: 05-22-2024 ambulatory Manasa Zendejas Facility:[facility] Start: 04-29-2024 End: 04-29-2024 ambulatory MANASA ZENDEJAS DO Facility:[facility] Start: 04-29-2024 End: 04-29-2024 Patient encounter procedure RICKEY HUNG MD [facility][1] Pain Management Start: 02-14-2024 Encounter for genera l adult medical examination without abnormal findings Donn Hawk [facility] Start: 01-31-2024 ambulatory Manasa Philipalonzo Facility: [facility] Start: 01-31-2024 ambulatory Manasa Philipalonzo Facility: [facility] Start: 01-30-2024 End: 01-31-2024 ambulatory RICKEY HUNG MD Facility:A Start: 01-30-2024 End: 01-30-2024 Anticoagulant drug monitoring RICKEY HUNG MD [facility][1] Pain Management Start: 01-18-2024 End: 01-18-2024 ambulatory Manasa Zendejas Facility:[facility] Start: 12-28-[address] Pedro Luis Zendejas DO Work Phone: [facility] Start: 12-28-2023 End: 12-28-2023 ambulatory Donn Kenn Facility:[facility] Start: 12-26-2023 End: 12-26-2023 ambulatory RICKEY HUNG MD Facility:A Start: 09-25-2023 End: 09-25-2023 ambulatory RICKEY HUNG MD Facility:A Start: 09-25-2023 End: 09-25-2023 Patient encounter procedure RICKEY HUNG MD [facility][1] Pain Management Start: 08-14-2023 End: 08-14-2023 ambulatory MANASA ZENDEJAS DO Facility:B Start: 08-14-2023 End: 08-14-2023 Patient encounter procedure MANASA EZNDEJAS DO [facility] [place] Start: 08-14-2023 End: 08-14-2023 ambulatory MANASA ZENDEJAS DO Facility:B Start: 07-27-2023 End: 07-27-2023 ambulatory MARCOS BANDA MAGAZINE GRINDER LOADER-PROJECT ADMIN Facility:A Start: 07-27-2023 End: 07-27-2023 Anticoagulant drug monitoring MARCOSMayo BANDA MAGAZINE GRINDER LOADER-PROJECT ADMIN [facility][1] Pain Management Start: 06-30-2023 End: 06-30-2023 ambulatory MARCOS BANDA MAGAZINE GRINDER LOADER-PROJECT ADMIN Facility:A Start: 06-30-2023 End: 06-30-2023 Patient encounter procedure MARCOS BANDA MAGAZINE GRINDER LOADER-PROJECT ADMIN [facility][1] Pain Management Start: 04-24-2023 End: 04-24-[address] Manasa Zendejas Work Phone: [facility] Work Phone: Start: 04-24-2023 End: 04-24-[address] Manasa Zendejas Work Phone: [facility] Work Phone: Start: 03-15-2023 End: 03-15-2023 ambulatory GOKUL JANG APRN-STENCILING MACHINE TENDER Facility:A Start: 03-15-2023 End: 03-15-2023 Anticoagulant drug monitoring GOKUL JANG MAGAZINE GRINDER LOADER-STENCILING MACHINE TENDER [facility][1] Pain Management Start: 02-24-2023 End: 02-24-2023 ambulatory KRYSTYNA MANZANO Facility:B Start: 02-24-2023 End: 02-24-2023 Patient encounter procedure MANASA ZENDEJAS DO [facility] [place] Start: 02-14-2023 End: 02-14-2023 ambulatory MANASA HICKSALONZO DUBOIS Facility:A Start: 02-14-2023 End: 02-14-2023 Patient encounter procedure GOKUL JANG MAGAZINE GRINDER LOADER-STENCILING MACHINE TENDER [facility][1] Pain Management Start: 02-10-2023 Non-patient / Non-visit Dr. Opal Zendejas Work Phone: [facility] [employer] [employer] Work Phone: Start: 02-09-2023 End: 02-09-[address] Manasa Zendejas Work Phone: [facility] [employer] Work Phone: Start: 11-10-2022 End: 11-11-2022 Observation HERVE OLIVAREZ MD [facility] Start: 10-28-2022 End: 10-28-2022 Patient encounter procedure MANASA CRISTIANA [facility] [place] Start: 10-16-2022 End: 10-16-2022 Emergency department patient visit Dr. Manasa Zendejas Work Phone: [facility] Start: 09-21-2022 End: 09-21-2022 Anticoagulant drug monitoring RICKEY HUNG MD [facility][1] Pain Management Start: 09-12-2022 End: 09-12-[address] Manasa Zendejas Work Phone: [facility] [employer] Start: 08-02-2022 End: 08-02-[address] Manasa Zendejas Work Phone: [facility] Start: 07-27-2022 End: 07-27-[address] Manasa Zendejas Work Phone: [facility] Start: 07-26-2022 Non-patient / Non-visit Dr. Opal Zendejas Work Phone: [facility] Start: 07-01-2022 Non-patient / Non-visit Dr. Opal Zendejas Work Phone: [facility] Start: 06-07-2022 Non-patient / Non-visit Dr. Opal Zendeajs Work Phone: [facility] Start: 06-07-2022 End: 06-07-[address] Manasa Zendejas Work Phone: [facility] Work Phone: Start: 06-07-2022 End: 06-07-[address] Manasa Zendejas Work Phone: [facility] Start: 06-02-[address] Krish Zendejas Work Phone: [facility] Start: 05-30-2022 Non-patient / Non-visit Dr. Opal Zendejas Work Phone: [facility] Start: 05-30-2022 End: 05-30-[address] Manasa Zendejas Work Phone: [facility] Work Phone: Start: 05-30-2022 End: 05-30-[address] Manasa Zendejas Work Phone: [facility] Start: 05-26-2022 End: 05-26-[address] Manasa Zendejas Work Phone: [facility] Work Phone: Start: 05-26-2022 End: 05-27-2022 Patient encounter procedure RICKEY HUNG MD [facility] Start: 05-16-2022 End: 05-17-2022 Emergency department patient visit Dr. Manasa Zendejas Work Phone: [facility] Start: 05-02-2022 End: 05-02-[address] Manasa Zendejas Work Phone: [facility] Start: 04-06-2022 End: 04-06-2022 Minor Procedure RICKEY HUNG MD [facility] Start: 02-23-2022 End: 02-23-2022 Patient encounter procedure CALEB AJ MD [facility] Start: 02-11-2022 End: 02-11-2022 Patient encounter procedure RICKEY HUNG MD [facility] Start: 02-11-2022 End: 02-11-2022 Patient encounter procedure RICKEY HUNG MD [facility] Start: 01-27-2022 End: 01-27-[address] Manasa Zendejas Work Phone: [facility] Start: 01-03-2022 End: 01-03-2022 Patient encounter procedure MANASA ZENDEJAS DO [facility] Start: 12-14-2021 End: 12-14-2021 Minor Procedure MANASA ZENDEJAS DO [facility] Procedures Date Procedure Procedure Detail Performing Clinician Start: 12-17-2024 PM Inj Spine L/S Wit h Imaging SN 1 RICKEY HUNG MD Comment on above: auto-populated from documented surgical case Start: 10-15-2024 Positron emission to mography with computed tomography Dr. Manasa Zendejas DO Work Phone: Start: 06-13-2024 PM Inj Spine L/S Wit h Imaging SN 1 RICKEY HUGN MD Comment on above: auto-populated from documented surgical case Start: 06-13-2024 PM Inj Spine L/S Wit h Imaging SN 2 RICKEY HUNG MD Comment on above: auto-populated from documented surgical case Start: 01-30-2024 PM Inj Spine L/S Wit h Imaging SN 1 RICKEY HUNG MD Comment on above: auto-populated from documented surgical case Start: 01-30-2024 PM Inj Spine L/S Wit h Imaging SN 2 RICKEY UHNG MD Comment on above: auto-populated from documented surgical case Start: 01-30-2024 PM Inj Spine L/S Wit h Imaging SN 3 RICKEY HUNG MD Comment on above: auto-populated from documented surgical case Start: 07-27-2023 PM Inj Spine L/S Wit h Imaging SN 1 MARCOS BANDA MAGAZINE GRINDER LOADER-PROJECT ADMIN Comment on above: auto-populated from documented surgical case Start: 07-27-2023 PM Inj Spine L/S Wit h Imaging SN 2 RICKEY HUNG MD Comment on above: auto-populated from documented surgical case Start: 07-27-2023 PM Inj Spine L/S Wit h Imaging SN 3 RICKEY HUNG MD Comment on above: auto-populated from documented surgical case Start: 07-27-2023 PM Inj Spine L/S Wit h Imaging SN 4 RICKEY HUNG MD Comment on above: auto-populated from documented surgical case Start: 03-15-2023 PM Inj Spine L/S Wit h Imaging SN 1 GOKUL JANG MAGAZINE GRINDER LOADER-STENCILING MACHINE TENDER Comment on above: auto-populated from documented surgical case Start: 09-06-2023 PM Inj Spine L/S Wit h Imaging SN 2 MARCOS BANDA MAGAZINE GRINDER LOADER-PROJECT ADMIN Comment on above: auto-populated from documented surgical case Start: 03-15-2023 PM Inj Spine L/S Wit h Imaging SN 3 RICKEY HUNG MD Comment on above: auto-populated from documented surgical case Start: 03-15-2023 PM Inj Spine L/S Wit h Imaging SN 4 RICKEY HUNG MD Comment on above: auto-populated from documented surgical case Start: 03-15-2023 PM Inj Spine L/S Wit h Imaging SN 5 RICKEY HUNG MD Comment on above: auto-populated from documented surgical case Start: 02-07-2023 24 Hour ECG RICKEY REYES MD Comment on above: IMPRESSION: Normal ambulatory electronic device monitor with a predominant underlying rhythm of normal sinus. Start: 12-08-2022 Ablation - action (q ualifier value) GOKUL JANG MAGAZINE GRINDER LOADER-STENCILING MACHINE TENDER Comment on above: Impression: Successf ul ablation for atrial fibrillation and flutter. The patient tolerated the procedure well with no immediate complications. 2. PVI CTI Start: 10-16-2022 CT of abdomen and pe lvis without contrast Dr. Manasa Zendejas Work Phone: Start: 09-21-2022 PM Inj Spine L/S Wit h Imaging SN 1 RICKEY HUNG MD Comment on above: auto-populated from documented surgical case Start: 09-21-2022 PM Inj Spine L/S Wit h Imaging SN 2 GOKUL SUHAIL MAGAZINE GRINDER LOADER-STENCILING MACHINE TENDER Comment on above: auto-populated from documented surgical case Start: 09-21-2022 PM Inj Spine L/S Wit h Imaging SN 3 MARCOS BANDA MAGAZINE GRINDER LOADER-PROJECT ADMIN Comment on above: auto-populated from documented surgical case Start: 09-21-2022 PM Inj Spine L/S Wit h Imaging SN 6 RICKEY HUNG MD Comment on above: auto-populated from documented surgical case Start: 09-21-2022 PM Inj Spine L/S Wit h Imaging SN 7 RICKEY HUNG MD Comment on above: auto-populated from documented surgical case Start: 09-21-2022 PM Inj Spine L/S Wit h Imaging SN 8 RICKEY HUNG MD Comment on above: auto-populated from documented surgical case Start: 05-30-2022 Radionuclide imaging of perfusion of myocardium under exercise stress Dr. Manasa Zendejas Work Phone: Start: 05-16-2022 Plain chest X-ray Dr. Su Zendejas Work Phone: Start: 04-06-2022 PM Inj Spine L/S Wit h Imaging SN 1 RICKEY HUNG MD Comment on above: auto-populated from documented surgical case Start: 04-06-2022 PM Inj Spine L/S Wit h Imaging SN 2 RICKEY HUNG MD Comment on above: auto-populated from documented surgical case Start: 04-06-2022 PM Inj Spine L/S Wit h Imaging SN 3 GOKUL JANG MAGAZINE GRINDER LOADER-STENCILING MACHINE TENDER Comment on above: auto-populated from documented surgical case Start: 04-06-2022 PM Inj Spine L/S Wit h Imaging SN 4 MARCOS BANDA MAGAZINE GRINDER LOADER-PROJECT ADMIN Comment on above: auto-populated from documented surgical case Start: 04-06-2022 PM Inj Spine L/S Wit h Imaging SN 7 RICKEY HUNG MD Comment on above: auto-populated from documented surgical case Start: 04-06-2022 PM Inj Spine L/S Wit h Imaging SN 8 RICKEY HUNG MD Comment on above: auto-populated from documented surgical case Start: 04-06-2022 PM Inj Spine L/S Wit h Imaging SN 9 RICKEY HUNG MD Comment on above: auto-populated from documented surgical case Start: 11-08-2015 Cardiac catheterization MANASA ZENDEJAS DO Start: 01-23-2015 Structure of left kn ee (body structure) MANASA ZENDEJAS DO Start: 08-22-2013 Structure of left sh oulder region (body structure) MANASA HICKSKO DO Start: 04-09-2009 Hernia of abdominal cavity (disorder) MANASA HICKSKO DO Start: 02-19-2009 Structure of right s houlder region (body structure) MANASA HICKSKO DO Back structure, excl uding neck (body structure) MANASA HICKSKO DO Urine culture Dr. Manasa michaud Work Phone: Plan of Treatment Date Care Activity Detail Author Start: 11-28-2024 Walking distance 6 minutes [facility] Start: 07-02-2024 [facility] Start: 10-16-2022 [facility] Start: 09-12-2022 Patient referral [facility] Work Phone: Start: 08-02-2022 Evaluation of diagno stic study results [facility] Start: 05-17-2022 Following clinical p athway protocol [facility] Work Phone: Start: 05-17-2022 [facility] Work Phone: Bacteria identified in Urine by Culture Urine Culture [facility] Work Phone: Patient Education [facility] Work Phone: Patient referral [facility] Work Phone: Positron emission tomography with computed tomography [facility] Work Phone: Immunizations Immunization Date Immunization Notes Care Provider Fa gideon 06-21-2024 influenza virus vaccine, unspecified formulation MANASA ZENDEJAS DO [facility] 06-21-2024 Seasonal trivalent influenza vaccine, adjuvanted, preservative free Dr. Manasa Zendejas DO Work Phone: [facility] 04-18-2023 zoster vaccine recombinant RICKEY HUNG MD [facility] 02-09-2023 zoster vaccine recombinant RICKEY HUNG MD [facility] 02-08-2023 Pneumococcal conjuga te PCV20, polysaccharide [id number] conjugate, adjuvant, PF; Translations: [Prevnar 20] GOKUL JANG MAGAZINE GRINDER LOADER-STENCILING MACHINE TENDER [facility] 08-12-2020 SARS-CoV-2 (COVID-19 ) mRNA-1273 vaccine MANASA ZENDEJAS DO [facility] 07-17-2020 SARS-CoV-2 (COVID-19 ) mRNA-1273 vaccine MANASA CRISTIANA DO [facility] 05-05-2020 diphtheria and tetan us toxoids, adsorbed for pediatric use MANASA CRISTIANA DO [facility] [employer] 05-05-2020 influenza virus vaccine, unspecified formulation MANASA ZENDEJAS DO [facility][1] Pain Management 07-10-2019 diphtheria and tetan us toxoids, adsorbed for pediatric use MANASA CRISTIANA DO [facility][1] Pain Management Comment on above: Result Comment: [email or web address] [facility] 04-13-2016 influenza, injectabl e, quadrivalent, preservative free Dr. Manasa Zendejas Work Phone: [facility] 04-13-2016 influenza, seasonal, injectable Dr. Manasa Zendejas Work Phone: [facility] 05-15-[address] Manasa Zendejas Work Phone: [facility] 03-10-2012 influenza virus vaccine, unspecified formulation MANASA ZENDEJAS DO [facility] Payers Date Payer Category Payer Self-pay [id number] 2023 Private Health Insurance [id number] 2022 Private Health Insurance [id number] 2016 Private Health Insurance [employer] [id number] 1956 Unknown [id number] 2.16.8 40.1.273683.3.579.2.627 1956 Unknown [id number] 2.16.8 40.1.164924.3.579.2.627 1956 Unknown [id number] 2.16.8 40.1.753962.3.579.2.627 1956 Unknown [id number] 2.16.8 40.1.905400.3.579.2.627 1956 Unknown [id number] 2.16.8 40.1.652231.3.579.2.627 1956 Unknown [id number] 2.16.8 40.1.970818.3.579.2.627 1956 Unknown [id number] 2.16.8 40.1.693780.3.579.2.627 1956 Unknown [id number] 2.16.8 40.1.408239.3.579.2.627 1956 Unknown [id number] 2.16.8 40.1.863781.3.579.2.627 1956 Unknown [id number] 2.16.8 40.1.283443.3.579.2.627 1956 Unknown [id number] 2.16.8 40.1.720692.3.579.2.627 1956 Unknown [id number] 2.16.8 40.1.228029.3.579.2.627 1956 Unknown [id number] 2.16.8 40.1.456651.3.579.2.627 1956 Unknown [id number] 2.16.8 40.1.402049.3.579.2.627 1956 Unknown [id number] 2.16. 840.1.327587.3.579.2.627 1956 Unknown [id number] 2.16.8 40.1.941882.3.579.2.627 1956 Unknown [id number] 2.16.8 40.1.386464.3.579.2.627 1956 Unknown [id number] 2.16.8 40.1.863044.3.579.2.627 1956 Unknown [id number] 2.16.8 40.1.257273.3.579.2.627 1956 Unknown [id number] 2.16.8 40.1.027877.3.579.2.627 Unknown [id number] 2.16.8 40.1.167821.3.579.2.462 Unknown [id number] 2.16.8 40.1.255649.3.579.2.462 Unknown [id number] 2.16.8 40.1.217408.3.579.2.462 Unknown [id number] 2.16.8 40.1.361945.3.579.2.462 Unknown [id number] 2.16.8 40.1.826201.3.579.2.462 Unknown [id number] 2.16.8 40.1.291690.3.579.2.462 Unknown [id number] 2.16.8 40.1.149099.3.579.2.462 Unknown [id number] 2.16.8 40.1.699887.3.579.2.462 Unknown [id number] 2.16.8 40.1.951669.3.579.2.462 Unknown [id number] 2.16.8 40.1.022945.3.579.2.462 Unknown [id number] 2.16.8 40.1.976257.3.579.2.462 Unknown [id number] 2.16.8 40.1.060716.3.579.2.462 Unknown [id number] 2.16.8 40.1.494319.3.579.2.462 Unknown [id number] 2.16.8 40.1.432177.3.579.2.462 Social History Date Type Detail Facility Start: 06-24-2019 End: 01-15-2024 Tobacco smoking status Never smoked tobacco (finding) [facility] Start: 1955 Sex Assigned At Male A [facility] Start: 05-16-2022 End: 02-09-2023 Tobacco smoking status HIIS Unknown if ever smoked [facility] Start: 09-03-2013 Rare [facility] Start: 09-03-2013 None [facility] Start: 09-03-2013 Alone [facility] Start: 09-03-2013 Non-smoker [facility] Start: 11-10-2022 End: 07-02-2024 Tobacco smoking status Ex-smoker (finding) [facility] Sexual Orientation [facility] Start: 01-02-2019 End: 11-04-2024 Sex Male (finding) [facility] Functional Status Date Assessment Result Facility 06-13-2024 Functional Status Independent [facility] 06-13-2024 Functional Status Maintained [facility] 01-30-2024 Functional Status Maintained [facility] 07-27-2023 Functional Status None [facility] 07-27-2023 Functional Status More than 8 hours [facility] 03-15-2023 Functional Status Maintained [facility] 11-11-2022 Functional Status Ambulating in room [facility] 11-11-2022 Functional Status 100 [facility] 11-11-2022 Functional Status Room located n ear nursing station, Room check performed [facility] 11-10-2022 Functional Status [facility] 11-10-2022 Functional Status Dinner Percent 100 [facility] 11-10-2022 Functional Status Identification band, Verbal [facility] 11-10-2022 Functional Status [facility] 11-10-2022 Functional Status [facility] 09-21-2022 Functional Status Maintained [facility] 04-06-2022 Functional Status Maintained [facility] Mental Status Date Assessment Result Facility 01-30-2024 Mental Status Orientation Oriented x 4 [facility] 07-27-2023 Mental Status Orientation Oriented x 4 [facility] 03-15-2023 Mental Status Orientation Oriented x 4 [facility] 11-11-2022 Mental Status Orientation Oriented x 4 [facility] 11-11-2022 Mental Status [facility] 11-10-2022 Mental Status [facility] 11-10-2022 Mental Status Oriented x 4 [facility] 11-10-2022 Mental Status [facility] 09-21-2022 Mental Status Orientation Oriented x 4 [facility] 05-16-2022 Cognitive function Voice/Name [facility] Work Phone: 04-06-2022 Mental Status Oriented x 4 [facility] Clinical Notes 04-23-2021 to 12-17-2024 Note Date & Type Note Facility 12-17-2024 Hospital Discharge instructions Patient Education 12/17/2024 07:42:22 Epidural Steroid Injection, Care After [place] ([address]) Epidural Steroid Injection, Care After Refer to this sheet in the next few weeks. These instructions provide you with information about caring for yourself after your procedure. Your health care provider may also give you more specific instructions. Your treatment has been planned according to current medical practices, but problems sometimes occur. Call your health care provider if you have any problems or questions after your procedure. What can I expect after the procedure? After your procedure, it is common to feel a little discomfort at the injection site. Follow these instructions at home: For 24 hours after the procedure: ?Avoid using heat on the injection site. ?Do not take a tub bath, and do not soak in water. ?Do not drive for the remainder of the day of injection If directed, put ice on the injection site: ?Put ice in a plastic bag. ?Place a towel between your skin and the bag. ?Leave the ice on for 20 minutes, 2 3 times a day. Return to your normal activities as told by your health care provider. Ask your health care provider what activities are safe for you. You may remove the bandage (dressing) after 24 hours. Take tacg-rka-nczlpxf and prescription medicines only as told by your health care provider. Keep all follow-up visits as told by your health care provider. This is important. Contact a health care provider if: You have a fever. You continue to have pain and soreness around the injection site, even after taking nfxp-xgu-ksehljw pain medicine. You have severe, sudden, or lasting nausea or vomiting. Get help right away if: You have severe pain at the injection site that is not relieved by medicines. You develop a severe headache or a stiff neck. You become sensitive to light. You have any new numbness or weakness in your legs or arms. You lose control of your bladder or bowel movements. You have trouble breathing. This information is not intended to replace advice given to you by your health care provider. Make sure you discuss any questions you have with your health care provider. Document Released: 10/11/2011 Document Revised: 06/08/2018 Document Reviewed: 10/11/2016 [employer] Patient Education 2020 [employer] 12/17/2024 07:42:22 PM Discharge Instructions Lumbar Epidural (CUSTOM) [facility][1] Pain Management Discharge Instructions fo Lumbar Epidural The purpose of the procedure completed was to decrease the pain and the inflammation arising from structures in your back. You can expect soreness at the injection site for the next 2 4 days. Your pain may go away immediately, or it may take several days to subside. This is because two medications are used in the injection. The first medication, a local anesthetic, will only work for the first day or two. The second, a steroid, may not start working until 2 5 days after the injection. There may be a time after the local anesthetic wears off and before the steroid take effect that you actually feel like you have more pain (steroid flare). If this happens: 1.Rest your back and/or leg for a day or two. 2.Put ice on the spot that hurts: a.On for 20 minutes, off for 30 minutes (to prevent damage to the skin). b.A bag of frozen vegetables (e.g. corn, peas, mixed) works great for this. c.You may also use warm moist heat and rotate with ice procedure. 3.Take your pain medication or Tylenol or Advil as needed for 24 48 hours. Contact [facility] to make an appointment to discuss the results of this procedure. The final report will be available to your referring physician within the next 10 days. If you have any unusual problems related to this procedure, please call [phone]. [facility][1] [facility] Management 12-17-2024 Summary of episode note Discharge Instructions Thank you for allowing [facility] to assist you with your healthcare needs. The following is important discharge information regarding your hospital visit. Your Care Team MANASA ZENDEJAS DO Your Diagnosis Lumbar radiculopathy Lumbar stenosis with neurogenic claudication Lumbar postlaminectomy syndrome Anticoagulated by anticoagulation treatment What to do next Scheduled Follow-Up Appointments Appointment Type When With Where Contact Information StatusCV OV 01/13/2025 10:15 AM EDT MIRI OLIVAREZ [facility] Miri Confirmed Wellness Medicare 02/12/2025 08:30 AM EDT MANASA ZENDEJAS DO [facility] Confirmed PM OV 03/17/2025 11:50 AM EDT RICKEY HUNG MD [facility] Confirmed Medications Please ask your primary doctor or pharmacist before taking any other medication not listed, including over the counter drugs, herbal medications, vitamins and or supplements as they may interact with your home medications. What How Much When Instructions Last Dose Unchanged allopurinol (allopurinol 100 mg oral tablet) 1 tab(s) by mouth Two (2) times a day Duration: 90 Days Unchanged amLODIPine (amLODIPine 5 mg oral tablet) 1 tab(s) by mouth Once a day Duration: 90 Days Unchanged apixaban (Eliquis 5 mg oral tablet) 1 tab(s) by mouth Two (2) times a day Unchanged ezetimibe (Zetia 10 mg oral tablet) 1 tab(s) by mouth Every day Duration: 90 Days Unchanged hydrochlorothiazide-spironolacto ne (hydrochlorothiazide-spironolact one 25 mg-25 mg oral tablet) 1 tab(s) by mouth Every day Duration: 90 Days Unchanged nitroGLYcerin (nitroglycerin 0.4 mg sublingual tablet) 1 tab(s) under the tongue Every 5 minutes as needed for for chest pain Duration: 90 Days not to exceed 3 doses/ 15 min--if pain persists, seek medical attention Unchanged potassium citrate (potassium citrate 15 mEq oral tablet, extended release) See instructions 1 tab(s) Oral BID Unchanged sildenafil (sildenafil 25 mg oral tablet) 2 tab(s) by mouth Once a day as needed for as needed for erectile dysfunction Duration: 30 Days tart with one tablet, may use 2 tablets prn 1 hour before sexual activity do not take nitroglycerin within 24 hours of using Unchanged silver sulfADIAZINE topical (silver sulfADIAZINE 1% topical cream) 1 application Topical Two (2) times a day Unchanged terbinafine topical (terbinafine 1% topical cream) 1 application Topical Two (2) times a day Duration: 28 Days Please take this list to your next doctor s visit. Bring all medications you take, including over the counter medications, herbals and other supplements with you to your doctor s visit. Patients and families are reminded to discard old lists and to update any records with all medication providers or retail pharmacies. Education Materials Epidural Steroid Injection, Care After Refer to this sheet in the next few weeks. These instructions provide you with information about caring for yourself after your procedure. Your health care provider may also give you more specific instructions. Your treatment has been planned according to current medical practices, but problems sometimes occur. Call your health care provider if you have any problems or questions after your procedure. What can I expect after the procedure? After your procedure, it is common to feel a little discomfort at the injection site. Follow these instructions at home: For 24 hours after the procedure: ? Avoid using heat on the injection site. ? Do not take a tub bath, and do not soak in water. ? Do not drive for the remainder of the day of injection If directed, put ice on the injection site: ? Put ice in a plastic bag. ? Place a towel between your skin and the bag. ? Leave the ice on for 20 minutes, 2 3 times a day. Return to your normal activities as told by your health care provider. Ask your health care provider what activities are safe for you. You may remove the bandage (dressing) after 24 hours. Take qjrw-acx-nfbzclw and prescription medicines only as told by your health care provider. Keep all follow-up visits as told by your health care provider. This is important. Contact a health care provider if: You have a fever. You continue to have pain and soreness around the injection site, even after taking tmqw-wzt-crycqcz pain medicine. You have severe, sudden, or lasting nausea or vomiting. Get help right away if: You have severe pain at the injection site that is not relieved by medicines. You develop a severe headache or a stiff neck. You become sensitive to light. You have any new numbness or weakness in your legs or arms. You lose control of your bladder or bowel movements. You have trouble breathing. This information is not intended to replace advice given to you by your health care provider. Make sure you discuss any questions you have with your health care provider. Document Released: 10/11/2011 Document Revised: 06/08/2018 Document Reviewed: 10/11/2016 [employer] Patient Education 2020 [employer] [facility] Discharge Instructions fo Lumbar Epidural The purpose of the procedure completed was to decrease the pain and the inflammation arising from structures in your back. You can expect soreness at the injection site for the next 2 4 days. Your pain may go away immediately, or it may take several days to subside. This is because two medications are used in the injection. The first medication, a local anesthetic, will only work for the first day or two. The second, a steroid, may not start working until 2 5 days after the injection. There may be a time after the local anesthetic wears off and before the steroid take effect that you actually feel like you have more pain (steroid flare). If this happens: 1. Rest your back and/or leg for a day or two. 2. Put ice on the spot that hurts: a. On for 20 minutes, off for 30 minutes (to prevent damage to the skin). b. A bag of frozen vegetables (e.g. corn, peas, mixed) works great for this. c. You may also use warm moist heat and rotate with ice procedure. 3. Take your pain medication or Tylenol or Advil as needed for 24 48 hours. Contact [facility] to make an appointment to discuss the results of this procedure. The final report will be available to your referring physician within the next 10 days. If you have any unusual problems related to this procedure, please call [phone]. Additional Information VACCINATE! IT SAVES LIVES! Members of the community who have not yet received the COVID-19 vaccine and would like to receive it can visit one of [facility] vaccine clinics. There are many vaccine clinic locations within the [facility]. For locations and available times, please visit https://gettheshot.coronavirus.o oro.gov/. It is important to note that some COVID mobile vaccine clinics are held outdoors and may be canceled in rainy or stormy conditions. To learn more about pediatric vaccinations (ages 5-11), we invite you to visit the [facility] webpage. [email or web address] [email or web address].[email or web address] To learn more about the COVID-19 vaccine, we invite you to visit the CDC website for a list of frequently asked questions.https://www.cdc.gov/co ronavirus/2019-ncov/vaccines/faq .html [employer] Patient Portal Access Instructions: Stay connected with your healthcare team and access your personal medical information anytime with the [employer] Patient Portal. Please follow the directions below to create your DreamNotes account: 1.Access the email account you provided upon registration to the hospital/physician office.2.Look for an invitation email from [facility].3.Open the email and access the invitation link: Accept Invitation to [facility].4.Fill in the required perez to create your account. To access your account, visit [email or web address]. Click the blue button labeled Access Patient Portal and then log in with the username and password that you created in the steps above. You will be able to view your test results, lab results, a summary of your visits, upcoming appointments and more. There is also a convenient messaging option where you can send secure messages to your provider. In addition, you will have the ability to download any documents or summaries to your computer and/or send the information securely to a physician. Remember that your healthcare information is confidential, so carefully consider who you will allow to register on the [facility] Patient Portal for access to your information. You can also access the [facility] [facility] Patient Portal on the [facility] mal[facility]. Simply click on Patient Portal and then log into your account. If you would like to receive a full copy of your medical records, please contact the [facility] Medical Records Department by calling [phone], Monday through Monday between 8 a.m. and 4:30 p.m. HOW TO SAFELY DISPOSE OF PRESCRIPTION MEDICATIONS Please use one of the following methods to safely dispose of your unused medications. 1.Use a drug disposal kit: the drug disposal pouch allows you to safely discard your old and unused drugs. Ask your nurse to give you one when you are discharged.2.Visit a local take-back location: Many local pharmacies and police departments have programs that collect old and unwanted prescription drugs. Call your local pharmacy or go to http://Lánzanos.Salemarked/2Q9Vy2m to find one close to you.3.Make use of household items: Use cat litter or old coffee grounds to dispose medications if other options are not available. Mix your drugs with these household products, seal them in an airtight container and throw it into the garbage. Call [facility]: [phone] to be sure your drugs can be disposed of in this way. Some medicines may require a different approach.4.Never flush your medications down the toilet. IF YOU HAVE BEEN PRESCRIBED AN OPIOID FOR PAIN If you have been prescribed an opioid (such as hydrocodone, oxycodone or morphine), it is critical to understand the possible side effects and risks of opioid pain medications. Even when taken as directed, opioids can have several side effects including: Tolerance, meaning you might need to take more of a medication for the same pain relief. Nausea, vomiting and/or constipation. Sleepiness, dizziness, dry mouth, confusion, depression or itching. Physical dependence, meaning you have withdrawal symptoms when a medication is stopped, can develop within a few days. KNOW YOUR RESPONSIBILITIES It is important to know exactly how much and how often to take the opioid pain medications you are prescribed. Never take opioids in higher amounts or more often than prescribed. Do not combine opioids with alcohol or other drugs that cause drowsiness, such as benzodiazepines, also known as benzos, including diazepam and alprazolam, muscle relaxants or sleep aids. Never sell or share prescription opioids. This is illegal. Store opioids in a secure place and out of reach of others (including children, family, friends and visitors). The last page of this document has been signed and retained as a CHART COPY. Signatures Patient Education Materials Epidural Steroid Injection, Care After [place] ([address]) PM Discharge Instructions Lumbar Epidural (CUSTOM) Medication Leaflets My discharge plan and instructions have been reviewed and explained to me and I,KRYSTYNA PADGETT understand my current condition and have read and understand these discharge instructions. I have received a written copy of the plan/instructions. If I have questions, I am aware that I should contact my doctor. 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 History and Physical Chief Complaint here for h+p, would like an injection, on Eliquis, renewal BTR faxed to Dr Zendejas, c/o intermittant left hip pain that radiates to left leg to foot History of Present Illness OARRS reviewed. Diazepam 5 mg #2 filled on 10/09/24. No chronic opioids prescribed. Patient is a 69-year-old male that presents for follow-up. Patient had a lumbar epidural steroid injection L2-L3 with Dr. Hung on 06/13/2024. Patient reports 90% relief for the first 2 months and then 50% relief for 2 months that is now slowly returning to baseline. Today patient reports 8 out of 10 low back pain on the left side that radiates to his left leg and foot. Patient reports that his pain is aggravated with standing. Patient describes the pain as qlou-ucd-yftqslp. Patient reports that his pain is alleviated with injections as well as rest. Patient reports he has done physical therapy in the past but that it aggravated his pain. Patient does try to do home exercising and stretching as tolerated. Patient has not found any vmxh-vmf-eaqwpdt medications that have been helpful. Patient does not use ice or heat as they provide minimal relief. Will reorder lumbar epidural steroid injection L2-L3 with Dr. Hung. Blood thinner request sent. In the past patient has stopped Eliquis 4 days prior to to the procedure. Preprocedure instructions provided and discussed. Patient does have a small lesion on his arm that he wants to ensure is not an infection. He has an appointment with his PCP on November 20. Patient will update us if it is in fact an infection and whether he will be on antibiotics or not. Patient does think it is psoriasis though but just wanted to be sure. Of note patient did recently have a pulmonary function test due to a pulmonary nodule in his lung that they now think it is an enlarged vein. Patient also has to do a 6-minute walking test and then will follow-up with the web content developer. Patient is agreeable to treatment plan. Patient denies any other questions or concerns at this time. Review of Systems ROS AMB Chief Complaint : here for h+p, would like an injection, on Eliquis, renewal BTR faxed to Dr Zendejas, c/o intermittant left hip pain that radiates to left leg to foot Kerrie Up RN - 11/07/2024 10:17 EDT Treatment Response : rest and injections alleviate the pain Kerrie Up RN - 11/07/2024 10:12 EDT Primary Pain Pain Symptoms : Yes Pain Scale Type Adult : 0-10 Pain scale Primary Pain Intensity : 8 Primary Pain Laterality : Left Primary Pain Quality : Other: pins and needles Primary Pain Location : Hip Primary Pain Radiation : Yes Primary Pain Radiation Characteristics : left leg to foot Primary Pain Aggravating Factors : Standing Primary Pain Alleviating Factors : Pain management injection, Rest Kerrie Up RN - 11/07/2024 10:12 EDT Vitals Peripheral Pulse Rate : 58 bpm (LOW) Respiratory Rate ??? : 18 br/min Systolic Blood Pressure( NBP ) : 112 mmHg Diastolic Blood Pressure (NBP) : 77 mmHg Oxygen Therapy : Room air Oxygen Saturation : 97 % Height : 167.6 cm(Converted to: 5 ft 6 inch(es)) Dosing Weight : 132.6 kg(Converted to: 292 lb 5 oz) Height in inches : 66 inch(es) Weight Lbs : 291.7 lb Weight Method : Actual Body Mass Index : 47.21 kg/m2 BSA Admission : 2.35 [1] Physical Exam Vitals and Measurements HR: 58 RR: 18 BP: 112/77 SpO2: 97% HT: 167.6 cm WT: 132.6 kg BMI: 47.21 Oxygen Therapy: Room air Primary Pain Intensity: 8 (11/07/24 10:12:00) GENERAL: Obese; no acute distress. GAIT antalgic ASSISTIVE DEVICES: None PSYCHIATRIC: Alert and oriented x 3, cooperative, mood normal, affect normal. HENT: Skin without lesions. Trachea midline. RESPIRATORY: With no difficulty. NEURO: Sensation intact Bilateral Upper extremities intact Bilateral Lower extremities Strength +5/5 RIGHT upper extremity; +5/5 LEFT upper extremity; Strength +5/5 RIGHT lower extremity; +5/5 LEFT lower extremity. CERVICAL SPINE: ROM good without pain. THORACIC SPINE: ROM good without pain. LUMBAR SPINE: ROM reduced with pain. No scoliosis noted negativeseated straight leg raising MUSCLE TRIGGER POINTS: None noted. Social History Alcohol Type: Wine., 11/10/2022 Employment/School Status: Employed., 09/20/2022 Home/Environment Primary Car Dryer: self., 06/24/2019 Nutrition/Health Caffeine intake amount: none., 06/24/2019 Substance Abuse Use: Never., 06/24/2019 Tobacco Nicotine Use: Never (less than 100 in lifetime)., 01/15/2024 Nicotine Use: Former smoker, quit more than 30 days ago. Type: Cigarettes., 11/10/2022 Family History Breast cancer: Sister. Diabetes: Mother. Heart disease: Mother and Father. Hypertension: Mother. Stroke: Father. Health Status Family Member(s) Family Member(s) Relationship: Mother, Age: 81 Years Relationship: Father, Age: 73 Years, Cause: tractor accident Assessment/Plan 1. Anticoagulated by anticoagulation treatment BTR sent. Patient is on Eliquis. Historically patient has stopped 4 days prior to procedure 2. Lumbar postlaminectomy syndrome Ordered Lumbar Epidural Steroid Injection L2-L3 with Dr. Hung Preprocedure instructions provided and discussed May use heat and ice for comfort as tolerated Encouraged gentle stretching as tolerated Ordered: PM Inj Spine L/S With Imaging 62200(Epidural Injection, Lumbar/Sacral/Caudal w/ Imaging (PM Procedure) [id number]), 11/07/24, RICKEY HUNG MD, Lumbar Epidural Steroid Injection L2-3, Local, Lumbar radicuolpathy, lumbar postlaminectomy syndrome, Future Order, PM Office, [facility] [place] 3. Lumbar radiculopathy Ordered Lumbar Epidural Steroid Injection L2-L3 with Dr. Hung Preprocedure instructions provided and discussed May use heat and ice for comfort as tolerated Encouraged gentle stretching as tolerated Ordered: PM Inj Spine L/S With Imaging [id number](Epidural Injection, Lumbar/Sacral/Caudal w/ Imaging (PM Procedure) [id number]), 11/07/24, RICKEY HUNG MD, Lumbar Epidural Steroid Injection L2-3, Local, Lumbar radicuolpathy, lumbar postlaminectomy syndrome, Future Order, PM Office, [facility] [place] 4. Spondylolisthesis of lumbar region May use heat and ice for comfort as tolerated Encouraged gentle stretching as tolerated Portions of the record may have been created with voice recognition software. Occasional wrong-word or ydgxc-k-rlcf substitutions may have occurred due to the inherent limitations of voice recognition software. Problem List/Past Medical History Ongoing Actinic keratoses Anticoagulated by anticoagulation treatment Aortic atherosclerosis Aortic root dilation At low risk for fall Atrial fibrillation BMI 45.0-49.9, adult CAD - Coronary artery disease Chest pain DDD (degenerative disc disease), lumbar Depression screen Erectile dysfunction Former smoker Glaucoma Gout History of bilevel positive airway pressure (BiPAP) therapy HLD - Hyperlipidemia Hypercoagulability due to atrial fibrillation Hypersomnolence Hypertensive heart disease without CHF Immunization due Immunization refused Lumbar postlaminectomy syndrome Lumbar radiculopathy Lumbar stenosis with neurogenic claudication Lung nodule LVH (left ventricular hypertrophy) Medicare annual wellness visit, subsequent Morbid obesity Myalgia due to statin Need for hepatitis C screening test Nephrolithiasis Neurogenic claudication Old [place] (myocardial infarction) MARIELENA treated with BiPAP Osteoarthritis Paroxysmal A-fib Peripheral vascular disease Previous back surgery PSA elevation PVCs (premature ventricular contractions) S/P ablation of atrial fibrillation Screen for colon cancer Screening due Screening for osteoporosis Screening for prostate cancer Severe obstructive sleep apnea Spondylolisthesis of lumbar region Procedure/Surgical History 24 hour Holter tape: 02/07/23 Ablation - action: 12/08/22 Left knee: 01/23/15 Left shoulder: 08/22/13 Right shoulder: 02/19/09 Back Allergies rosuvastatin (Moderate) severe myalgias Betaxolol Hydrochloride Low heart rate CloNIDine HCl Unknown lisinopril Angioedema [1] [1] Specialty Office Visit Note; 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 11/07/2024 10:04 EDT Digitally Signed by RICKEY HUNG MD on 12/17/2024 07:20 AM [facility] 10-07-2024 Evaluation note Diagnosis Onset Date Resolution Lung nodule, solitary chronic Mar 2024 8:02am Morbid obesity chronic September 8:02am [facility] Work Phone: 1(698) 909-774103-31-2025 Evaluation note* Diagnosis Onset Date Resolution Status Admit Date Lung nodule, solitary chronic Mar 2024 8:02am Morbid obesity chronic September 8:02am Dyspnea acute October 25 7:34am Lung nodule, solitary chronic Apr sd 2024 7:34am Morbid obesity chronic October 7:34am MARIELENA (obstructive sleep apnea) chroni c October 25, 2024 7:34am [facility] Work Phone: 1(153) 331-109212-13-2024 Evaluation note* Diagnosis Onset Date Resolution Status Admit Date Lung nodule, solitary chronic Dec ember 2023 11:12am Morbid obesity chronic June 092023 11:12am MARIELENA (obstructive sleep apnea) chronic June 21, 024 11:12am Lung nodule, solitary chronic Mar ch 2024 8:02am Morbid obesity chronic September 8:02am [facility] Work Phone: 1(178) 609-296712-05-2024 Hospital Discharge instructions Patient Education 06/13/2024 08:40:35 Epidural Steroid Injection, Care After Epidural Steroid Injection, Care After Refer to this sheet in the next few weeks. These instructions provide you with information about caring for yourself after your procedure. Your health care provider may also give you more specific instructions. Your treatment has been planned according to current medical practices, but problems sometimes occur. Call your health care provider if you have any problems or questions after your procedure. What can I expect after the procedure? After your procedure, it is common to feel a little discomfort at the injection site. Follow these instructions at home: For 24 hours after the procedure: ?Avoid using heat on the injection site. ?Do not take a tub bath, and do not soak in water. ?Do not drive if you received a medicine to help you relax (sedative). If directed, put ice on the injection site: ?Put ice in a plastic bag. ?Place a towel between your skin and the bag. ?Leave the ice on for 20 minutes, 2 3 times a day. Return to your normal activities as told by your health care provider. Ask your health care provider what activities are safe for you. You may remove the bandage (dressing) after 24 hours. Take jqof-rua-thpoolw and prescription medicines only as told by your health care provider. Keep all follow-up visits as told by your health care provider. This is important. Contact a health care provider if: You have a fever. You continue to have pain and soreness around the injection site, even after taking youn-nxn-vpfbcnn pain medicine. You have severe, sudden, or lasting nausea or vomiting. Get help right away if: You have severe pain at the injection site that is not relieved by medicines. You develop a severe headache or a stiff neck. You become sensitive to light. You have any new numbness or weakness in your legs or arms. You lose control of your bladder or bowel movements. You have trouble breathing. This information is not intended to replace advice given to you by your health care provider. Make sure you discuss any questions you have with your health care provider. Document Released: 10/11/2011 Document Revised: 06/08/2018 Document Reviewed: 10/11/2016 [employer] Patient Education [employer] [facility][1] Pain Management 12-05-2024 History and physical note History and Physical Update I have examined the patient; reviewed the History and Physical and there are no changes to the History and Physical unless noted below. Pain today 6/10. no new problems since last visit. Held eliquis4 days. History and Physical Chief Complaint C/o left hip pain radiates down LLE. 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 to hold Eliquis for 4 days for spinal procedure Rating his pain now is about a 5 out of 10 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 Denies new leg weakness, numbness or incontinence Physical Exam Vitals and Measurements HR: 70 RR: 16 BP: 159/75 SpO2: 95% HT: 167 cm WT: 131.8 kg BMI: 47.26 Oxygen Therapy: Room air Primary Pain Intensity: 5 (04/29/24 11:23:00) Alert pleasant 68-year-old male in no acute distress ambulatory without a device Negative straight leg raise at 90 degrees bilaterally left dorsiflexion power 5/5 Social History Alcohol Type: Wine., 11/10/2022 Employment/School Status: Employed., 09/20/2022 Home/Environment Primary Car Dryer: self., 06/24/2019 Nutrition/Health Caffeine intake amount: none., 06/24/2019 Substance Abuse Use: Never., 06/24/2019 Tobacco Nicotine Use: Never (less than 100 in lifetime)., 01/15/2024 Nicotine Use: Former smoker, quit more than 30 days ago. Type: Cigarettes., 11/10/2022 Family History Breast cancer: Sister. Diabetes: Mother. Heart disease: Mother and Father. Hypertension: Mother. Stroke: Father. Health Status Family Member(s) Family Member(s) Relationship: Mother, Age: 81 Years Relationship: Father, Age: 73 Years, Cause: tractor accident Assessment/Plan 1. Lumbar radiculopathy Historically excellent relief of pain with lasting benefit 90% for 3 months from last procedure just starting to wear off at this point Per discussion we will schedule an epidural steroid injection to be done at the left L2-3 level with contrast in about 2 weeks to 3 weeks Preprocedural instructions reviewed with him and printed. Ordered: PM Inj Spine L/S With Imaging 75695(Epidural Injection, Lumbar/Sacral/Caudal w/ Imaging (PM Procedure) [id number]), *Est. 05/20/24 +/- 4 day(s), Lumbar epidural steroid injection with x-ray, Local, Neurogenic claudication, Left L2-3 with contrast, Hold Eliquis for 4 days for spinal procedure, Future Order, 4, day(s), 3, week(s), In Approximately, PM Office, PM Mass... 2. Lumbar postlaminectomy syndrome Ordered: PM Inj Spine L/S With Imaging [id number](Epidural Injection, Lumbar/Sacral/Caudal w/ Imaging (PM Procedure) [id number]), *Est. 05/20/24 +/- 4 day(s), Lumbar epidural steroid injection with x-ray, Local, Neurogenic claudication, Left L2-3 with contrast, Hold Eliquis for 4 days for spinal procedure, Future Order, 4, day(s), 3, week(s), In Approximately, PM Office, PM Mass... 3. Spondylolisthesis of lumbar region Continue lumbar flexion exercises Ordered: PM Inj Spine L/S With Imaging [id number](Epidural Injection, Lumbar/Sacral/Caudal w/ Imaging (PM Procedure) [id number]), *Est. 05/20/24 +/- 4 day(s), Lumbar epidural steroid injection with x-ray, Local, Neurogenic claudication, Left L2-3 with contrast, Hold Eliquis for 4 days for spinal procedure, Future Order, 4, day(s), 3, week(s), In Approximately, PM Office, PM Mass... 4. Anticoagulated by anticoagulation treatment Longstanding use of Eliquis. No recent events. We do have formal approval for him to hold Eliquis for 4 days for spinal procedure. Ordered: PM Inj Spine L/S With Imaging [id number](Epidural Injection, Lumbar/Sacral/Caudal w/ Imaging (PM Procedure) [id number]), *Est. 05/20/24 +/- 4 day(s), Lumbar epidural steroid injection with x-ray, Local, Neurogenic claudication, Left L2-3 with contrast, Hold Eliquis for 4 days for spinal procedure, Future Order, 4, day(s), 3, week(s), In Approximately, PM Office, PM Mass... Problem List/Past Medical History Ongoing Actinic keratoses Anticoagulated by anticoagulation treatment Aortic atherosclerosis Aortic root dilation At low risk for fall Atrial fibrillation BMI 45.0-49.9, adult CAD - Coronary artery disease Chest pain DDD (degenerative disc disease), lumbar Depression screen Erectile dysfunction Former smoker Glaucoma Gout History of bilevel positive airway pressure (BiPAP) therapy HLD - Hyperlipidemia Hypercoagulability due to atrial fibrillation Hypersomnolence Hypertensive heart disease without CHF Immunization due Immunization refused Lumbar postlaminectomy syndrome Lumbar radiculopathy Lumbar stenosis with neurogenic claudication Lung nodule LVH (left ventricular hypertrophy) Medicare annual wellness visit, subsequent Morbid obesity Myalgia due to statin Need for hepatitis C screening test Nephrolithiasis Neurogenic claudication Old UT (myocardial infarction) MARIELENA treated with BiPAP Osteoarthritis Paroxysmal A-fib Peripheral vascular disease Previous back surgery PSA elevation PVCs (premature ventricular contractions) S/P ablation of atrial fibrillation Screen for colon cancer Screening due Screening for osteoporosis Screening for prostate cancer Severe obstructive sleep apnea Spondylolisthesis of lumbar region Procedure/Surgical History 24 hour Holter tape: 02/07/23 Ablation - action: 12/08/22 Left knee: 01/23/15 Left shoulder: 08/22/13 Right shoulder: 02/19/09 Back Allergies rosuvastatin (Moderate) severe myalgias Betaxolol Hydrochloride Low heart rate CloNIDine HCl Unknown lisinopril Angioedema [1] [1] Specialty Office Visit Note; RICKEY HUNG MD 04/29/2024 11:43 EDT Digitally Signed by RICKEY HUNG MD on 06/13/2024 08:45 AM [facility][1] Pain [id number] Summary of episode note Discharge Instructions Thank you for allowing [facility] to assist you with your healthcare needs. The following is importantdischarge information regarding your hospital visit. Your Care Team MANASA ZENDEJAS DO Your Diagnosis Lumbar radiculopathy Lumbar postlaminectomy syndrome Spondylolisthesis of lumbar region Anticoagulated by anticoagulation treatment What to do next Scheduled Follow-Up Appointments Appointment Type When With Where Contact Information StatusPC OV 08/14/2024 10:00 AM EST [facility] Confirmed CV OV 01/13/2025 10:15 AM EDT MIRI OLIVAREZ [facility] [place] Confirmed Medications Please ask your primary doctor or pharmacist before taking any other medication not listed, including over the counter drugs, herbal medications, vitamins and or supplements as they may interact withyour home medications. What How Much When Instructions Last Dose Unchanged allopurinol (allopurinol 100 mg oral tablet) 1 tab(s) by mouth Two (2) times a day Duration: 90 Days Unchanged amLODIPine (amLODIPine 5 mg oral tablet) 1 tab(s) by mouth Once a day Duration: 90 Days Unchanged apixaban (Eliquis 5 mg oral tablet) 1 tab(s) by mouth Two (2) times a day Unchanged ezetimibe (Zetia 10 mg oral tablet) 1 tab(s) by mouth Every day Duration: 90 Days Unchanged hydrochlorothiazide-spironolactone (hydrochlorothiazide-spironolactone 25 mg-25 mg oral tablet) 1 tab(s) by mouth Every day Duration: 90 Days Unchanged nitroGLYcerin (nitroglycerin 0.4 mg sublingual tablet) 1 tab(s) under the tongue Every 5 minutes as needed for for chest pain Duration: 90 Days not to exceed 3 doses/ 15 min--if pain persists, seek medical attention Unchanged potassium citrate (potassium citrate 15 mEq oral tablet, extended release) See instructions 1 tab(s) Oral BID Unchanged sildenafil (sildenafil 25 mg oral tablet) 2 tab(s) by mouth Once a day as needed for as needed for erectile dysfunction Duration: 30 Days tart with one tablet, may use 2 tablets prn 1 hour before sexual activity do not take nitroglycerin within 24 hours of using Please take this list to your next doctor s visit. Bring all medications you take, including over the counter medications, herbals and other supplements with you to your doctor s visit. Patients and families are reminded to discard old lists and to update any records with all medication providers or retail pharmacies. Education Materials Epidural Steroid Injection, Care After Refer to this sheet in the next few weeks. These instructions provide you with information about caring for yourself after your procedure. Your health care provider may also give you more specific instructions. Your treatment has been planned according to current medical practices, but problems sometimes occur. Call your health care provider if you have any problems or questions after your procedure. What can I expect after the procedure? After your procedure, it is common to feel a little discomfort at the injection site. Follow these instructions at home: For 24 hours after the procedure: ? Avoid using heat on the injection site. ? Do not take a tub bath, and do not soak in water. ? Do not drive if you received a medicine to help you relax (sedative). If directed, put ice on the injection site: ? Put ice in a plastic bag. ? Place a towel between your skin and the bag. ? Leave the ice on for 20 minutes, 2 3 times a day. Return to your normal activities as told by your health care provider. Ask your health care provider what activities are safe for you. You may remove the bandage (dressing) after 24 hours. Take kqgc-znc-nyhzkrp and prescription medicines only as told by your health care provider. Keep all follow-up visits as told by your health care provider. This is important. Contact a health care provider if: You have a fever. You continue to have pain and soreness around the injection site, even after taking uhrz-ohy-jbopfsn pain medicine. You have severe, sudden, or lasting nausea or vomiting. Get help right away if: You have severe pain at the injection site that is not relieved by medicines. You develop a severe headache or a stiff neck. You become sensitive to light. You have any new numbness or weakness in your legs or arms. You lose control of your bladder or bowel movements. You have trouble breathing. This information is not intended to replace advice given to you by your health care provider. Make sure you discuss any questions you have with your health care provider. Document Released: 10/11/2011 Document Revised: 06/08/2018 Document Reviewed: 10/11/2016 [employer] Patient Education 2020 [employer] Additional Information VACCINATE! IT SAVES LIVES! Members of the community who have not yet received the COVID-19 vaccine and would like to receive it can visit one of [facility] vaccine clinics. There are many vaccine clinic locations within the [facility]. For locations and available times, please visit [email or web address]/. It is important to note that some COVID mobile vaccine clinics are held outdoors and may be canceled in rainy or stormy conditions. To learn more about pediatric vaccinations (ages 5-11), we invite you to visit the [employer] webpage. https://[email or web address]/[email or web address]-[email or web address] [email or web address].htmlTo learn more about the COVID-19 vaccine, we invite you to visit the CDC website for a list of frequently asked questions.https://www.cdc.gov/coronavirus/2019-ncov/vaccines/faq.html DreamNotes Patient Portal Access Instructions: Stay connected with your healthcare team and access your personal medical information anytime with the DreamNotes Patient Portal. Please follow the directions below to create your DreamNotes account: 1.Access the email account you provided upon registration to the hospital/physician office.2.Look for an invitation email from [facility].3.Open the email and access the invitation link: AcceptInvitation to DreamNotes.4.Fill in the required perez to create your account. To access your account, visit [employer]/3LeafOneChart. Click the blue button labeled Access Patient Portal and then log in with the username and password that you created in the steps above. You will be able to view your test results, lab results, a summary of your visits, upcoming appointments and more. There is also a convenient messaging option where you can send secure messages to your p rovider. In addition, you will have the ability to download any documents or summaries to your computer and/or send the information securely to a physician. Remember that your healthcare information is confidential, so carefully consider who you will allowto register on the [facility] Patient Portal for access to your information. You can also access the [facility] on the [place] [facility]. Simply click on Patient Portal and then log into your account. If you would like to receive a full copy of your medical records, please contact the [facility] Medical Records Department by calling [phone], Monday through Monday between 8 a.m. and 4:30 p.m. HOW TO SAFELY DISPOSE OF PRESCRIPTION MEDICATIONS Please use one of the following methods to safely dispose of your unused medications. 1.Use a drug disposal kit: the drug disposal pouch allows you to safely discard your old and unuseddrugs. Ask your nurse to give you one when you are discharged.2.Visit a local take-back location: Many local pharmacies and police departments have programs that collect old and unwanted prescriptiondrugs. Call your local pharmacy or go to http://[employer]/7Y0Zs8v to find one close to you.3.Make use of household items: Use cat litter or old coffee grounds to dispose medications if other options arenot available. Mix your drugs with these household products, seal them in an airtight container andthrow it into the garbage. Call [facility]: [phone] to be sure your drugs can be disposed of in this way. Some medicines may require a different approach.4.Never flush your medications down the toilet. IF YOU HAVE BEEN PRESCRIBED AN OPIOID FOR PAIN If you have been prescribed an opioid (such as hydrocodone, oxycodone or morphine), it is critical to understand the possible side effects and risks of opioid pain medications. Even when taken as directed, opioids can have several side effects including: Tolerance, meaning you might need to take more of a medication for the same pain relief. Nausea, vomiting and/or constipation. Sleepiness, dizziness, dry mouth, confusion, depression or itching. Physical dependence, meaning you have withdrawal symptoms when a medication is stopped, can develop within a few days. KNOW YOUR RESPONSIBILITIES It is important to know exactly how much and how often to take the opioid pain medications you are prescribed. Never take opioids in higher amounts or more often than prescribed. Do not combine opioids with alcohol or other drugs that cause drowsiness, such as benzodiazepines, also known as benzos, including diazepam and alprazolam, muscle relaxants or sleep aids. Never sell or share prescription opioids. This is illegal. Store opioids in a secure place and out of reach of others (including children, family, friends and visitors). The last page of this document has been signed and retained as a CHART COPY. Signatures Patient Education Materials Epidural Steroid Injection, Care After Medication Leaflets My discharge plan and instructions have been reviewed and explained to me and I,KRYSTYNA PADGETT understand my current condition and have read and understand these discharge instructions. I have received a written copy of the plan/instructions. If I have questions, I am aware that I should contactmy doctor. 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 These instructions provide you with information about caring for yourself after your procedure. Your health care provider may also give you more specific instructions. Your treatment has been planned according to current medical practices, but problems sometimes occur. Call your health care provider if you have any problems or questions after your procedure. What can I expect after the procedure? After your procedure, it is common to feel a little discomfort at the injection site. Follow these instructions at home: For 24 hours after the procedure: ?Avoid using heat on the injection site. ?Do not take a tub bath, and do not soak in water. ?Do not drive for the remainder of the day of injection If directed, put ice on the injection site: ?Put ice in a plastic bag. ?Place a towel between your skin and the bag. ?Leave the ice on for 20 minutes, 2 3 times a day. Return to your normal activities as told by your health care provider. Ask your health care provider what activities are safe for you. You may remove the bandage (dressing) after 24 hours. Take qvbj-jbz-xskhnzm and prescription medicines only as told by your health care provider. Keep all follow-up visits as told by your health care provider. This is important. Contact a health care provider if: You have a fever. You continue to have pain and soreness around the injection site, even after taking iiow-yrc-lcwizky pain medicine. You have severe, sudden, or lasting nausea or vomiting. Get help right away if: You have severe pain at the injection site that is not relieved by medicines. You develop a severe headache or a stiff neck. You become sensitive to light. You have any new numbness or weakness in your legs or arms. You lose control of your bladder or bowel movements. You have trouble breathing. This information is not intended to replace advice given to you by your health care provider. Make sure you discuss any questions you have with your health care provider. Document Released: 10/11/2011 Document Revised: 06/08/2018 Document Reviewed: 10/11/2016 [employer] Patient Education 2019 [employer]. [facility] 07-23-2024 Summary of episode note Discharge Instructions Thank you for allowing [facility] to assist you with your healthcare needs. The following is importantdischarge information regarding your hospital visit. Your Care Team MANASA ZENDEJAS DO Your Diagnosis Lumbar radiculopathy Lumbar postlaminectomy syndrome Morbid obesity Anticoagulated by anticoagulation treatment What to do next Scheduled Follow-Up Appointments Appointment Type When With Where Contact Information StatusPC Wellness Medicare 02/09/2024 09:00 AMEDT MANASA ZENDEJAS [facility] Confirmed CV OV 01/13/2025 10:15 AM EDT [facility] [place] Confirmed The Following Activity and Diet Have Been Ordered for You No qualifying data available. No qualifying data available. The Following Equipment Has Been Ordered for You No qualifying data available. The Following Treatments Have Been Ordered for You Discharge Labs No qualifying data available. Discharge Radiology No qualifying data available. Other Therapies No qualifying data available. Post Acute Orders No qualifying data available. Someone Will Contact You Regarding These Home Health Referrals No home referrals have been ordered for you. No one will call you. Allergies rosuvastatin (Moderate) severe myalgias Betaxolol Hydrochloride Low heart rate CloNIDine HCl Unknown lisinopril Angioedema Medications Please ask your primary doctor or pharmacist before taking any other medication not listed, including over the counter drugs, herbal medications, vitamins and or supplements as they may interact withyour home medications. What How Much When Instructions Last Dose Unchanged allopurinol (allopurinol 100 mg oral tablet) 1 tab(s) by mouth Two (2) times a day Duration: 90 Days Unchanged amLODIPine (amLODIPine 5 mg oral tablet) 1 tab(s) by mouth Once a day Duration: 90 Days Unchanged apixaban (Eliquis 5 mg oral tablet) 1 tab(s) by mouth Two (2) times a day Unchanged ezetimibe (Zetia 10 mg oral tablet) 1 tab(s) by mouth Every day Duration: 90 Days Unchanged hydrochlorothiazide-spironolactone (hydrochlorothiazide-spironolactone 25 mg-25 mg oral tablet) 1 tab(s) by mouth Every day Duration: 90 Days Unchanged nitroGLYcerin (nitroglycerin 0.4 mg sublingual tablet) 1 tab(s) under the tongue Every 5 minutes as needed for for chest pain Duration: 90 Days not to exceed 3 doses/ 15 min--if pain persists, seek medical attention Unchanged potassium citrate (potassium citrate 15 mEq oral tablet, extended release) See instructions 1 tab(s) Oral BID Unchanged sildenafil (sildenafil 25 mg oral tablet) 2 tab(s) by mouth Once a day as needed for as needed for erectile dysfunction Duration: 30 Days tart with one tablet, may use 2 tablets prn 1 hour before sexual activity do not take nitroglycerin within 24 hours of using Please take this list to your next doctor s visit. Bring all medications you take, including over the counter medications, herbals and other supplements with you to your doctor s visit. Patients and families are reminded to discard old lists and to update any records with all medication providers or retail pharmacies. Education Materials Epidural Steroid Injection, Care After Refer to this sheet in the next few weeks. These instructions provide you with information about caring for yourself after your procedure. Your health care provider may also give you more specific instructions. Your treatment has been planned according to current medical practices, but problems sometimes occur. Call your health care provider if you have any problems or questions after your procedure. What can I expect after the procedure? After your procedure, it is common to feel a little discomfort at the injection site. Follow these instructions at home: For 24 hours after the procedure: ? Avoid using heat on the injection site. ? Do not take a tub bath, and do not soak in water. ? Do not drive for the remainder of the day of injection If directed, put ice on the injection site: ? Put ice in a plastic bag. ? Place a towel between your skin and the bag. ? Leave the ice on for 20 minutes, 2 3 times a day. Return to your normal activities as told by your health care provider. Ask your health care provider what activities are safe for you. You may remove the bandage (dressing) after 24 hours. Take qkny-ewj-crrngcf and prescription medicines only as told by your health care provider. Keep all follow-up visits as told by your health care provider. This is important. Contact a health care provider if: You have a fever. You continue to have pain and soreness around the injection site, even after taking qrys-zzf-jrkxjqj pain medicine. You have severe, sudden, or lasting nausea or vomiting. Get help right away if: You have severe pain at the injection site that is not relieved by medicines. You develop a severe headache or a stiff neck. You become sensitive to light. You have any new numbness or weakness in your legs or arms. You lose control of your bladder or bowel movements. You have trouble breathing. This information is not intended to replace advice given to you by your health care provider. Make sure you discuss any questions you have with your health care provider. Document Released: 10/11/2011 Document Revised: 06/08/2018 Document Reviewed: 10/11/2016 Elsevier Patient Education 2020 [employer] Additional Information VACCINATE! IT SAVES LIVES! Members of the community who have not yet received the COVID-19 vaccine and would like to receive it can visit one of [facility] vaccine clinics. There are many vaccine clinic locations within the [facility]. For locations and available times, please visit [email or web address].[place].gov/. It is important to note that some COVID mobile vaccine clinics are held outdoors and may be canceled in rainy or stormy conditions. To learn more about pediatric vaccinations (ages 5-11), we invite you to visit the [employer] [facility] webpage. https://[email or web address]/pages/[email or web address]-Obvlv-Erchngvyfju-Goujvjqvxi-Gpljk-Ukn [email or web address].htmlTo learn more about the COVID-19 vaccine, we invite you to visit the CDC website for a list of frequently asked questions.https://www.cdc.gov/coronavirus/2019-ncov/vaccines/faq.html DreamNotes Patient Portal Access Instructions: Stay connected with your healthcare team and access your personal medical information anytime with the DreamNotes Patient Portal. Please follow the directions below to create your DreamNotes account: 1.Access the email account you provided upon registration to the hospital/physician office.2.Look for an invitation email from [facility].3.Open the email and access the invitation link: AcceptInvitation to [facility].4.Fill in the required perez to create your account. To access your account, visit [employer]/[email or web address]. Click the blue button labeled Access Patient Portal and then log in with the username and password that you created in the steps above. You will be able to view your test results, lab results, a summary of your visits, upcoming appointments and more. There is also a convenient messaging option where you can send secure messages to your p rovider. In addition, you will have the ability to download any documents or summaries to your computer and/or send the information securely to a physician. Remember that your healthcare information is confidential, so carefully consider who you will allowto register on the [employer] Patient Portal for access to your information. You can also access the [facility] Patient Portal on the [employer] mali. Simply click on Patient Portal and then log into your account. If you would like to receive a full copy of your medical records, please contact the [facility] Medical Records Department by calling [phone], Monday through Monday between 8 a.m. and 4:30 p.m. HOW TO SAFELY DISPOSE OF PRESCRIPTION MEDICATIONS Please use one of the following methods to safely dispose of your unused medications. 1.Use a drug disposal kit: the drug disposal pouch allows you to safely discard your old and unuseddrugs. Ask your nurse to give you one when you are discharged.2.Visit a local take-back location: Many local pharmacies and police departments have programs that collect old and unwanted prescriptiondrugs. Call your local pharmacy or go to http://Lánzanos.Salemarked/7S0Jl7y to find one close to you.3.Make use of household items: Use cat litter or old coffee grounds to dispose medications if other options arenot available. Mix your drugs with these household products, seal them in an airtight container andthrow it into the garbage. Call [facility]: [phone] to be sure your drugs can be disposed of in this way. Some medicines may require a different approach.4.Never flush your medications down the toilet. IF YOU HAVE BEEN PRESCRIBED AN OPIOID FOR PAIN If you have been prescribed an opioid (such as hydrocodone, oxycodone or morphine), it is critical to understand the possible side effects and risks of opioid pain medications. Even when taken as directed, opioids can have several side effects including: Tolerance, meaning you might need to take more of a medication for the same pain relief. Nausea, vomiting and/or constipation. Sleepiness, dizziness, dry mouth, confusion, depression or itching. Physical dependence, meaning you have withdrawal symptoms when a medication is stopped, can develop within a few days. KNOW YOUR RESPONSIBILITIES It is important to know exactly how much and how often to take the opioid pain medications you are prescribed. Never take opioids in higher amounts or more often than prescribed. Do not combine opioids with alcohol or other drugs that cause drowsiness, such as benzodiazepines, also known as benzos, including diazepam and alprazolam, muscle relaxants or sleep aids. Never sell or share prescription opioids. This is illegal. Store opioids in a secure place and out of reach of others (including children, family, friends and visitors). The last page of this document has been signed and retained as a CHART COPY. Signatures Patient Education Materials Epidural Steroid Injection, Care After [place] ([address]) Medication Leaflets My discharge plan and instructions have been reviewed and explained to me and ILORIN JAMES Kenneth understand my current condition and have read and understand these discharge instructions. I have received a written copy of the plan/instructions. If I have questions, I am aware that I should contactmy doctor. 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 Patient denies any new major medical problems since last seen in December. Is here today for epidural steroid injection. Had about 4 to 6 months of relief from last injection which was done in July. Identical symptoms. 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 History and Physical Chief Complaint stabbing left hip pain that radiates down left leg to the foot History of Present Illness Patient returns today with chief complaint of left leg pain seems to emanate from the low back and left lateral hip area that is more of a sharp pain describes a paresthesia that seems to involve thelateral and posterior aspect of his left thigh and calf ending at the ankle level. Static standing it is most aggravating activity. Denies focal weakness Says this current symptoms are similar to what he was having prior to the last epidural steroid injection which was in July. Patient says he had 90% relief for 4 months and still about 50% relief until just recently now it seems to have worn off. 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 It summertime now so he has less frequent shifts We do have permission from french folding machine operator from September to ask him to hold Eliquis prior to the procedure. Takes no opioid analgesics Physical Exam Vitals and Measurements HR: 65 RR: 14 BP: 142/83 SpO2: 96% HT: 167.6 cm WT: 127.3 kg BMI: 45.32 Oxygen Therapy: Room air Primary Pain Intensity: 7 (12/26/23 11:42:00) Alert pleasant 68-year-old male in no distress he has a negative straight leg raise at 90 degrees right leg is asymptomatic when he stands up he experiences pain in the left lateral hip and posteriorthigh and calf. 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 Type: Cigarettes., 11/10/2022 Nicotine Use: Never (less than 100 in lifetime)., 06/24/2019 Family History Breast cancer: Sister. Diabetes: Mother. Heart disease: Mother and Father. Hypertension: Mother. Stroke: Father. Health Status Family Member(s) Family Member(s) Relationship: Mother, Age: 81 Years Relationship: Father, Age: 73 Years, Cause: tractor accident Assessment/Plan 1. Lumbar postlaminectomy syndrome 2. Lumbar stenosis with neurogenic claudication Historically very good relief from epidural steroid injection done from time to time. The last injection was done 6 months ago which has just recently worn off. Having identical symptoms now Will schedule an epidural steroid injection above his previous surgery at the elbow to 3 level withcontrast. We will need to obtain insurance approval first then we will call him to schedule the actual appointment. He needs to hold Eliquis for 3 days before the procedure and the day of the procedure 3. Lumbar radiculopathy 4. Anticoagulated by anticoagulation treatment 5. Morbid obesity Problem List/Past Medical History Ongoing Actinic keratoses Anticoagulated by anticoagulation treatment Aortic atherosclerosis Aortic root dilation At low risk for fall BMI 40.0-44.9, adult CAD - Coronary artery disease Chest pain DDD (degenerative disc disease), lumbar Depression screen Erectile dysfunction Former smoker Gout History of bilevel positive airway pressure (BiPAP) therapy HLD - Hyperlipidemia Hypercoagulability due to atrial fibrillation Hypersomnolence Hypertensive heart disease without CHF Immunization due Immunization refused Lumbar postlaminectomy syndrome Lumbar radiculopathy Lumbar stenosis with neurogenic claudication Lung nodule Medicare annual wellness visit, subsequent Morbid obesity Myalgia due to statin Need for hepatitis C screening test Nephrolithiasis Neurogenic claudication Old UT (myocardial infarction) MARIELENA treated with BiPAP Osteoarthritis Paroxysmal A-fib Peripheral vascular disease Previous back surgery PSA elevation PVCs (premature ventricular contractions) S/P ablation of atrial fibrillation Screen for colon cancer Screening due Screening for prostate cancer Severe obstructive sleep apnea Spondylolisthesis of lumbar region Procedure/Surgical History Ablation - action: 12/08/22 Left knee: 01/23/15 Left shoulder: 08/22/13 Right shoulder: 02/19/09 Back Allergies rosuvastatin (Moderate) severe myalgias Betaxolol Hydrochloride Low heart rate CloNIDine HCl Unknown lisinopril Angioedema [1] [1] Specialty Office Visit Note; RICKEY HUNG MD 12/26/2023 12:07 EDT Digitally Signed by RICKEY HUNG MD on 01/30/2024 07:41 AM [facility][1] Pain [id number] Hospital Discharge instructions Patient Education 07/27/2023 10:44:09 Epidural Steroid Injection, Care After Epidural Steroid Injection, Care After Refer to this sheet in the next few weeks. These instructions provide you with information about caring for yourself after your procedure. Your health care provider may also give you more specific instructions. Your treatment has been planned according to current medical practices, but problems sometimes occur. Call your health care provider if you have any problems or questions after your procedure. What can I expect after the procedure? After your procedure, it is common to feel a little discomfort at the injection site. Follow these instructions at home: For 24 hours after the procedure: ?Avoid using heat on the injection site. ?Do not take a tub bath, and do not soak in water. ?Do not drive if you received a medicine to help you relax (sedative). If directed, put ice on the injection site: ?Put ice in a plastic bag. ?Place a towel between your skin and the bag. ?Leave the ice on for 20 minutes, 2 3 times a day. Return to your normal activities as told by your health care provider. Ask your health care provider what activities are safe for you. You may remove the bandage (dressing) after 24 hours. Take qvpo-ggi-xflzikk and prescription medicines only as told by your health care provider. Keep all follow-up visits as told by your health care provider. This is important. Contact a health care provider if: You have a fever. You continue to have pain and soreness around the injection site, even after taking sblr-lic-dyiezxk pain medicine. You have severe, sudden, or lasting nausea or vomiting. Get help right away if: You have severe pain at the injection site that is not relieved by medicines. You develop a severe headache or a stiff neck. You become sensitive to light. You have any new numbness or weakness in your legs or arms. You lose control of your bladder or bowel movements. You have trouble breathing. This information is not intended to replace advice given to you by your health care provider. Make sure you discuss any questions you have with your health care provider. Document Released: 10/11/2011 Document Revised: 06/08/2018 Document Reviewed: 10/11/2016 [employer] Patient Education [employer]. [facility] 01-18-2024 Summary of episode note Discharge Instructions Thank you for allowing [facility] to assist you with your healthcare needs. The following is importantdischarge information regarding your hospital visit. Your Care Team MANASA ZENDEJAS DO Your Diagnosis Lumbar postlaminectomy syndrome Lumbar stenosis with neurogenic claudication Lumbar radiculopathy Morbid obesity Anticoagulated by anticoagulation treatment What to do next Scheduled Follow-Up Appointments Appointment Type When With Where Contact InformationPC OV 08/11/2023 10:00 AM MANASA SAUCEDO [facility] CV OV 01/15/2024 10:30 AM EDT [facility] [place] The Following Activity and Diet Have Been Ordered for You No qualifying data available. No qualifying data available. The Following Equipment Has Been Ordered for You No qualifying data available. The Following Treatments Have Been Ordered for You Discharge Labs No qualifying data available. Discharge Radiology No qualifying data available. Other Therapies No qualifying data available. Post Acute Orders No qualifying data available. Someone Will Contact You Regarding These Home Health Referrals No home referrals have been ordered for you. No one will call you. Allergies rosuvastatin (severe myalgias) Betaxolol Hydrochloride (Low heart rate) CloNIDine HCl (Unknown) lisinopril (Angioedema) Medications Please ask your primary doctor or pharmacist before taking any other medication not listed, including over the counter drugs, herbal medications, vitamins and or supplements as they may interact withyour home medications. What How Much When Instructions Last Dose Unchanged allopurinol (allopurinol 100 mg oral tablet) 1 tab(s) by mouth Two (2) times a day Duration: 90 Days Unchanged amLODIPine (amLODIPine 5 mg oral tablet) 1 tab(s) by mouth Once a day Duration: 90 Days Unchanged apixaban (Eliquis 5 mg oral tablet) 1 tab(s) by mouth Two (2) times a day Unchanged ezetimibe (Zetia 10 mg oral tablet) 1 tab(s) by mouth Every day Duration: 90 Days Unchanged hydrochlorothiazide-spironolactone (hydrochlorothiazide-spironolactone 25 mg-25 mg oral tablet) 1 tab(s) by mouth Every day Duration: 90 Days Unchanged nitroGLYcerin (nitroglycerin 0.4 mg sublingual tablet) 1 tab(s) under the tongue Every 5 minutes as needed for for chest pain Duration: 90 Days not to exceed 3 doses/ 15 min--if pain persists, seek medical attention Unchanged potassium citrate (potassium citrate 15 mEq oral tablet, extended release) See instructions 1 tab(s) Oral BID Please take this list to your next doctor s visit. Bring all medications you take, including over the counter medications, herbals and other supplements with you to your doctor s visit. Patients and families are reminded to discard old lists and to update any records with all medication providers or retail pharmacies. Education Materials Epidural Steroid Injection, Care After Refer to this sheet in the next few weeks. These instructions provide you with information about caring for yourself after your procedure. Your health care provider may also give you more specific instructions. Your treatment has been planned according to current medical practices, but problems sometimes occur. Call your health care provider if you have any problems or questions after your procedure. What can I expect after the procedure? After your procedure, it is common to feel a little discomfort at the injection site. Follow these instructions at home: For 24 hours after the procedure: ? Avoid using heat on the injection site. ? Do not take a tub bath, and do not soak in water. ? Do not drive if you received a medicine to help you relax (sedative). If directed, put ice on the injection site: ? Put ice in a plastic bag. ? Place a towel between your skin and the bag. ? Leave the ice on for 20 minutes, 2 3 times a day. Return to your normal activities as told by your health care provider. Ask your health care provider what activities are safe for you. You may remove the bandage (dressing) after 24 hours. Take azav-uic-ekqcqrs and prescription medicines only as told by your health care provider. Keep all follow-up visits as told by your health care provider. This is important. Contact a health care provider if: You have a fever. You continue to have pain and soreness around the injection site, even after taking ghru-mje-sgqrver pain medicine. You have severe, sudden, or lasting nausea or vomiting. Get help right away if: You have severe pain at the injection site that is not relieved by medicines. You develop a severe headache or a stiff neck. You become sensitive to light. You have any new numbness or weakness in your legs or arms. You lose control of your bladder or bowel movements. You have trouble breathing. This information is not intended to replace advice given to you by your health care provider. Make sure you discuss any questions you have with your health care provider. Document Released: 10/11/2011 Document Revised: 06/08/2018 Document Reviewed: 10/11/2016 PopJax Patient Education 2020 [employer]. Additional Information VACCINATE! IT SAVES LIVES! Members of the community who have not yet received the COVID-19 vaccine and would like to receive it can visit one of [facility] vaccine clinics. There are many vaccine clinic locations within the [facility]. For locations and available times, please visit https://gettheshot.coronavirus.[place].gov/. It is important to note that some COVID mobile vaccine clinics are held outdoors and may be canceled in rainy or stormy conditions. To learn more about pediatric vaccinations (ages 5-11), we invite you to visit the [facility] webpage. [email or web address]/[email or web address] [email or web address] learn more about the COVID-19 vaccine, we invite you to visit the CDC website for a list of frequently asked questions.https://www.cdc.gov/coronavirus/2019-ncov/vaccines/faq.html [place] [employer] Patient Portal Access Instructions: Stay connected with your healthcare team and access your personal medical information anytime with the [facility] Patient Portal. Please follow the directions below to create your [facility] account: 1.Access the email account you provided upon registration to the hospital/physician office.2.Look for an invitation email from [facility].3.Open the email and access the invitation link: AcceptInvitation to [place] [employer].4.Fill in the required perez to create your account. To access your account, visit [employer]. Click the blue button labeled Access Patient Portal and then log in with the username and password that you created in the steps above. You will be able to view your test results, lab results, a summary of your visits, upcoming appointments and more. There is also a convenient messaging option where you can send secure messages to your p Premonixvider. In addition, you will have the ability to download any documents or summaries to your computer and/or send the information securely to a physician. Remember that your healthcare information is confidential, so carefully consider who you will allowto register on the [facility] Patient Portal for access to your information. You can also access the [facility] Patient Portal on the [facility] [place]. Simply click on Patient Portal and then log into your account. If you would like to receive a full copy of your medical records, please contact the [facility] Medical Records Department by calling [phone], Monday through Monday between 8 a.m. and 4:30 p.m. HOW TO SAFELY DISPOSE OF PRESCRIPTION MEDICATIONS Please use one of the following methods to safely dispose of your unused medications. 1.Use a drug disposal kit: the drug disposal pouch allows you to safely discard your old and unuseddrugs. Ask your nurse to give you one when you are discharged.2.Visit a local take-back location: Many local pharmacies and police departments have programs that collect old and unwanted prescriptiondrugs. Call your local pharmacy or go to http://Lánzanos.Salemarked/5S5Bq8l to find one close to you.3.Make use of household items: Use cat litter or old coffee grounds to dispose medications if other options arenot available. Mix your drugs with these household products, seal them in an airtight container andthrow it into the garbage. Call [facility]: [phone] to be sure your drugs can be disposed of in this way. Some medicines may require a different approach.4.Never flush your medications down the toilet. IF YOU HAVE BEEN PRESCRIBED AN OPIOID FOR PAIN If you have been prescribed an opioid (such as hydrocodone, oxycodone or morphine), it is critical to understand the possible side effects and risks of opioid pain medications. Even when taken as directed, opioids can have several side effects including: Tolerance, meaning you might need to take more of a medication for the same pain relief. Nausea, vomiting and/or constipation. Sleepiness, dizziness, dry mouth, confusion, depression or itching. Physical dependence, meaning you have withdrawal symptoms when a medication is stopped, can develop within a few days. KNOW YOUR RESPONSIBILITIES It is important to know exactly how much and how often to take the opioid pain medications you are prescribed. Never take opioids in higher amounts or more often than prescribed. Do not combine opioids with alcohol or other drugs that cause drowsiness, such as benzodiazepines, also known as benzos, including diazepam and alprazolam, muscle relaxants or sleep aids. Never sell or share prescription opioids. This is illegal. Store opioids in a secure place and out of reach of others (including children, family, friends and visitors). The last page of this document has been signed and retained as a CHART COPY. Signatures Patient Education Materials Epidural Steroid Injection, Care After Medication Leaflets My discharge plan and instructions have been reviewed and explained to me and I,KRYSTYNA PADGETT understand my current condition and have read and understand these discharge instructions. I have received a written copy of the plan/instructions. If I have questions, I am aware that I should contactmy doctor. 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 History and Physical Chief Complaint c/o left leg burning and hip stabbing Pain Symptoms : Yes Pain Scale Type Adult : 0-10 Pain scale Primary Pain Intensity : 7 Primary Pain Laterality : Left Primary Pain Quality : Burning, Stabbing Primary Pain Location : Leg [1] History of Present Illness This is a 68-year-old male a patient of Dr. Hung who is being followed up by [facility] for chronic pain. Today's pain is 7/10. Described as stabbing and rqsu-lny-feibomc. Today's pain is located in the left gluteal area radiating down the left leg. 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 He does not use heat, ice or topical ointment. History of injections, March 15, 2023 lumbar epidural steroid injection given by Dr. Hung.Today the patient reports 100% relief lasting 3 months then tapering off. No recent hospitalization, infections, medication changes or falls. EXERCISE: No regular exercise routine. Review of Systems I have reviewed and agree with any documentation taken by the ancillary staff. + MARIELENA, uses Bipap. Physical Exam Vitals and Measurements HR: 60 RR: 16 BP: 130/70 SpO2: 98% HT: 167 cm WT: 123 kg BMI: 44.1 Oxygen Therapy: Room air Primary Pain Intensity: 7 (06/30/23 13:12:00) GENERAL: He is alert and oriented x 3 follow simple commands, appears to be in no acute distress. Memory, intact. Answers questions appropriately. Good historian. HEENT: Pupils equal, round, reactive. Facial expression is symmetric. Hearing is intact. CARDIOVASCULAR: Regular rate and rhythm. RESPIRATORY: Clear to auscultation bilaterally. ABDOMEN: Soft, round, nontender, bowel sounds present. MUSCULOSKELETAL: Hand grasp equal bilateral. Strength 5/5 upper/lower extremities. Dorsiflexion/plantarflexion intact. Sitting straight leg raises negative for low back pain. Moderate discomfort palpating the left gluteal area. He requires pushoff to stand and ambulates with no assistive device. I have reviewed the [place] automated Rx reporting system reported for this patient for refill and other prescriber involvement as a part of the appropriate surveillance for the provision of acute and chronic controlled medications the report was requested reviewed and was considered appropriate in the prescribing process. Discussion was undertaken with the patient in regard to the use of marijuana since it became legal in the state of [place] and it was explained clearly that I do not recommend the concomitant use of cannabis and opioids, and will use safe options for treatment in conjunction withthe use of marijuana. As the use of cannabis is associated with an increase incidence of depression, suicidality and psychotic disorders, worsening of psychological disease, short- term memory loss and possible increased risk of adverse cardiac events. This document was created using voice recognition software. Spelling, grammar and syntax errors arepossible. 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 Type: Cigarettes., 11/10/2022 Nicotine Use: Never (less than 100 in lifetime)., 06/24/2019 Family History Breast cancer: Sister. Diabetes: Mother. Heart disease: Mother and Father. Hypertension: Mother. Stroke: Father. Assessment/Plan 1. Lumbar postlaminectomy syndrome We will petition his insurance for prior authorization for a lumbar epidural steroid injection withJanak Hung. Reviewed preprocedure instructions and requirements, patient states understanding. 2. Lumbar stenosis with neurogenic claudication 3. Morbid obesity Encouraged low impact exercise such as walking or stretches as tolerated. 4. Anticoagulated by anticoagulation treatment Patient is on Eliquis, he does have atrial fibrillation, he states he has had an ablation in the past. We do have a blood thinner request form filled out by [facility] that he is to stop theEliquis for 4 days prior to the injection. Problem List/Past Medical History Ongoing Actinic keratoses Anticoagulated by anticoagulation treatment Aortic atherosclerosis At low risk for fall BMI 40.0-44.9, adult CAD - Coronary artery disease Chest pain DDD (degenerative disc disease), lumbar Depression screen Former smoker Gout History of bilevel positive airway pressure (BiPAP) therapy HLD - Hyperlipidemia Hypercoagulability due to atrial fibrillation Hypersomnolence Hypertensive heart disease without CHF Immunization due Immunization refused Lumbar postlaminectomy syndrome Lumbar radiculopathy Lumbar stenosis with neurogenic claudication Lung nodule Medicare annual wellness visit, subsequent Morbid obesity Myalgia due to statin Need for hepatitis C screening test Nephrolithiasis Neurogenic claudication Old UT (myocardial infarction) MARIELENA treated with BiPAP Osteoarthritis Paroxysmal A-fib Peripheral vascular disease Previous back surgery PSA elevation PVCs (premature ventricular contractions) S/P ablation of atrial fibrillation Screen for colon cancer Screening due Screening for prostate cancer Severe obstructive sleep apnea Spondylolisthesis of lumbar region Historical No qualifying data Procedure/Surgical History Ablation - action: 12/08/22 Left knee: 01/23/15 Left shoulder: 08/22/13 Right shoulder: 02/19/09 Back Allergies rosuvastatin (severe myalgias) Betaxolol Hydrochloride (Low heart rate) CloNIDine HCl (Unknown) lisinopril (Angioedema [1] [1] Specialty Office Visit Note; MARCOS BANDA APRN-PROJECT ADMIN 06/30/2023 13:32 EST Digitally Signed by RICKEY HUNG MD on 07/27/2023 10:09 AM [facility] [id number] Hospital Discharge instructions Patient Education 03/15/2023 09:20:56 Epidural Steroid Injection, Care After Abhilash (91045) Epidural Steroid Injection, Care After Refer to this sheet in the next few weeks. These instructions provide you with information about caring for yourself after your procedure. Your health care provider may also give you more specific instructions. Your treatment has been planned according to current medical practices, but problems sometimes occur. Call your health care provider if you have any problems or questions after your procedure. What can I expect after the procedure? After your procedure, it is common to feel a little discomfort at the injection site. Follow these instructions at home: For 24 hours after the procedure: ?Avoid using heat on the injection site. ?Do not take a tub bath, and do not soak in water. ?Do not drive for the remainder of the day of injection If directed, put ice on the injection site: ?Put ice in a plastic bag. ?Place a towel between your skin and the bag. ?Leave the ice on for 20 minutes, 2 3 times a day. Return to your normal activities as told by your health care provider. Ask your health care provider what activities are safe for you. You may remove the bandage (dressing) after 24 hours. Take fnqv-bjg-apebsta and prescription medicines only as told by your health care provider. Keep all follow-up visits as told by your health care provider. This is important. Contact a health care provider if: You have a fever. You continue to have pain and soreness around the injection site, even after taking zqwe-bqq-ovrkzyn pain medicine. You have severe, sudden, or lasting nausea or vomiting. Get help right away if: You have severe pain at the injection site that is not relieved by medicines. You develop a severe headache or a stiff neck. You become sensitive to light. You have any new numbness or weakness in your legs or arms. You lose control of your bladder or bowel movements. You have trouble breathing. This information is not intended to replace advice given to you by your health care provider. Make sure you discuss any questions you have with your health care provider. Document Released: 10/11/2011 Document Revised: 06/08/2018 Document Reviewed: 10/11/2016 [employer] Patient Education 2019 [employer]. [facility] 09-06-2023 Summary of episode note Discharge Instructions Thank you for allowing [facility] to assist you with your healthcare needs. The following is importantdischarge information regarding your hospital visit. Your Care Team MANASA ZENDEJAS DO, DR.WJW Your Diagnosis Lumbar postlaminectomy syndrome Lumbar stenosis with neurogenic claudication Morbid obesity Anticoagulated by anticoagulation treatment What to do next Scheduled Follow-Up Appointments Appointment Type When With Where Contact InformationPC OV 08/11/2023 10:00 AM MANASA SAUCEDO [facility] CV OV 01/15/2024 10:30 AM EDT [facility] [place] Allergies rosuvastatin (severe myalgias) Betaxolol Hydrochloride (Low heart rate) CloNIDine HCl (Unknown) lisinopril (Angioedema) Medications Please ask your primary doctor or pharmacist before taking any other medication not listed, including over the counter drugs, herbal medications, vitamins and or supplements as they may interact withyour home medications. What How Much When Instructions Last Dose Unchanged allopurinol (allopurinol 100 mg oral tablet) 1 tab(s) by mouth Two (2) times a day Duration: 90 Days Unchanged amLODIPine (amLODIPine 5 mg oral tablet) 1 tab(s) by mouth Once a day Duration: 90 Days Unchanged apixaban (Eliquis 5 mg oral tablet) 1 tab(s) by mouth Two (2) times a day Unchanged ezetimibe (Zetia 10 mg oral tablet) 1 tab(s) by mouth Every day Duration: 90 Days Unchanged hydrochlorothiazide-spironolactone (hydrochlorothiazide-spironolactone 25 mg-25 mg oral tablet) 1 tab(s) by mouth Every day Duration: 90 Days Unchanged nitroGLYcerin (nitroglycerin 0.4 mg sublingual tablet) 1 tab(s) under the tongue Every 5 minutes as needed for for chest pain Duration: 90 Days not to exceed 3 doses/ 15 min--if pain persists, seek medical attention Unchanged potassium citrate (potassium citrate 15 mEq oral tablet, extended release) See instructions 1 tab(s) Oral BID Please take this list to your next doctor s visit. Bring all medications you take, including over the counter medications, herbals and other supplements with you to your doctor s visit. Patients and families are reminded to discard old lists and to update any records with all medication providers or retail pharmacies. Education Materials Epidural Steroid Injection, Care After Refer to this sheet in the next few weeks. These instructions provide you with information about caring for yourself after your procedure. Your health care provider may also give you more specific instructions. Your treatment has been planned according to current medical practices, but problems sometimes occur. Call your health care provider if you have any problems or questions after your procedure. What can I expect after the procedure? After your procedure, it is common to feel a little discomfort at the injection site. Follow these instructions at home: For 24 hours after the procedure: ? Avoid using heat on the injection site. ? Do not take a tub bath, and do not soak in water. ? Do not drive for the remainder of the day of injection If directed, put ice on the injection site: ? Put ice in a plastic bag. ? Place a towel between your skin and the bag. ? Leave the ice on for 20 minutes, 2 3 times a day. Return to your normal activities as told by your health care provider. Ask your health care provider what activities are safe for you. You may remove the bandage (dressing) after 24 hours. Take fvgu-moz-mdlysmc and prescription medicines only as told by your health care provider. Keep all follow-up visits as told by your health care provider. This is important. Contact a health care provider if: You have a fever. You continue to have pain and soreness around the injection site, even after taking jicj-xoh-glqixqk pain medicine. You have severe, sudden, or lasting nausea or vomiting. Get help right away if: You have severe pain at the injection site that is not relieved by medicines. You develop a severe headache or a stiff neck. You become sensitive to light. You have any new numbness or weakness in your legs or arms. You lose control of your bladder or bowel movements. You have trouble breathing. This information is not intended to replace advice given to you by your health care provider. Make sure you discuss any questions you have with your health care provider. Document Released: 10/11/2011 Document Revised: 06/08/2018 Document Reviewed: 10/11/2016 [employer] Patient Education 2020 [employer]. Additional Information VACCINATE! IT SAVES LIVES! Members of the community who have not yet received the COVID-19 vaccine and would like to receive it can visit one of [facility] vaccine clinics. There are many vaccine clinic locations within the [facility]. For locations and available times, please visit https://gettheshot.coronavirus.[place].gov/. It is important to note that some COVID mobile vaccine clinics are held outdoors and may be canceled in rainy or stormy conditions. To learn more about pediatric vaccinations (ages 5-11), we invite you to visit the [facility] webpage. [email or web address]/[email or web address] [email or web address] learn more about the COVID-19 vaccine, we invite you to visit the CDC website for a list of frequently asked questions.https://www.cdc.gov/coronavirus/2019-ncov/vaccines/faq.html [facility] Patient Portal Access Instructions: Stay connected with your healthcare team and access your personal medical information anytime with the [facility] Patient Portal. Please follow the directions below to create your [facility] [facility] account: 1.Access the email account you provided upon registration to the hospital/physician office.2.Look for an invitation email from [facility].3.Open the email and access the invitation link: AcceptInvitation to [facility].4.Fill in the required perez to create your account. To access your account, visit [email or web address] by Chantilly Lacet. Click the blue button labeled Access Patient Portal and then log in with the username and password that you created in the steps above. You will be able to view your test results, lab results, a summary of your visits, upcoming appointments and more. There is also a convenient messaging option where you can send secure messages to your p [employer]. In addition, you will have the ability to download any documents or summaries to your computer and/or send the information securely to a physician. Remember that your healthcare information is confidential, so carefully consider who you will allowto register on the [facility] Patient Portal for access to your information. You can also access the [facility] Patient Portal on the [facility]. Simply click on Patient Portal and then log into your account. If you would like to receive a full copy of your medical records, please contact the [facility] Medical Records Department by calling [phone], Monday through Monday between 8 a.m. and 4:30 p.m. HOW TO SAFELY DISPOSE OF PRESCRIPTION MEDICATIONS Please use one of the following methods to safely dispose of your unused medications. 1.Use a drug disposal kit: the drug disposal pouch allows you to safely discard your old and unuseddrugs. Ask your nurse to give you one when you are discharged.2.Visit a local take-back location: Many local pharmacies and police departments have programs that collect old and unwanted prescriptiondrugs. Call your local pharmacy or go to http://bit.ly/3C8Fs2b to find one close to you.3.Make use of household items: Use cat litter or old coffee grounds to dispose medications if other options arenot available. Mix your drugs with these household products, seal them in an airtight container andthrow it into the garbage. Call [facility]: [phone] to be sure your drugs can be disposed of in this way. Some medicines may require a different approach.4.Never flush your medications down the toilet. IF YOU HAVE BEEN PRESCRIBED AN OPIOID FOR PAIN If you have been prescribed an opioid (such as hydrocodone, oxycodone or morphine), it is critical to understand the possible side effects and risks of opioid pain medications. Even when taken as directed, opioids can have several side effects including: Tolerance, meaning you might need to take more of a medication for the same pain relief. Nausea, vomiting and/or constipation. Sleepiness, dizziness, dry mouth, confusion, depression or itching. Physical dependence, meaning you have withdrawal symptoms when a medication is stopped, can develop within a few days. KNOW YOUR RESPONSIBILITIES It is important to know exactly how much and how often to take the opioid pain medications you are prescribed. Never take opioids in higher amounts or more often than prescribed. Do not combine opioids with alcohol or other drugs that cause drowsiness, such as benzodiazepines, also known as benzos, including diazepam and alprazolam, muscle relaxants or sleep aids. Never sell or share prescription opioids. This is illegal. Store opioids in a secure place and out of reach of others (including children, family, friends and visitors). The last page of this document has been signed and retained as a CHART COPY. Signatures Patient Education Materials Epidural Steroid Injection, Care After Hung (86588) Medication Leaflets My discharge plan and instructions have been reviewed and explained to me and I,KRYSTYNA PADGETT understand my current condition and have read and understand these discharge instructions. I have received a written copy of the plan/instructions. If I have questions, I am aware that I should contactmy doctor. 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 History and Physical Chief Complaint Pt c/o aching L hip, L buttock and LLE pain returning x 2-3 weeks History of Present Illness This 67-year-old white male is a patient of Dr. Hung. He was seen today for follow-up pain visit status post left L2-L3 lumbar epidural steroid injection in September. It offered 80% reduction in pain for 4 months. He reports improvement in function and mobility as a result of these procedures. Current pain rating is a 7 out of 10. He describes it as an aching and omma-ifb-fifkmrr sensation affecting the left lower back radiating into the left lower extremity and foot. He denies focal areas of weakness or loss sensation. He continues to take Eliquis for anticoagulation secondary to paroxysmal atrial fibrillation. Watchman procedure offered, but he declined. No plan for anticoagulation to be discontinued at this juncture. Patient denies any falls, infections or hospital visits since last office visit. Aggravating factors: Bending, twisting, walking, standing in place Primary Pain Pain Symptoms : Yes Pain Scale Type Adult : 0-10 Pain scale Primary Pain Intensity : 7 Primary Pain Laterality : Left Primary Pain Quality : Aching Primary Pain Location : Hip [1] Review of Systems Treatment Response : Pt states previous epidural injection September 2022 provided 80% relief x 4 months Pt requesting another injection Anastacia Araiza LPN 02/14/2023 7:02 EDT General Review of Systems Grid Fever : No Weight Gain : No Weight Loss : No Anastacia Araiza LPN 02/14/2023 7:02 EDT Skeletal Review of Systems Grid Joints Swelling/Stiffness : No Pain in Joint(s) : No Anastacia Araiza LPN 02/14/2023 7:02 EDT Neuro Review of Systems Grid Difficulty w/Balance : No Difficulty Walking : No Loss of Consciousness : No Memory Loss : No Paralysis Lower Extremity (L) : No Paralysis Lower Extremity (R) : No Paralysis Upper Extremity (L) : No Paralysis Upper Extremity (R) : No Sensory Disturbance Lower Extremity (L) : Yes Sensory Disturbance Lower Extremity (R) : No Sensory Disturbance Upper Extremity (L) : No Sensory Disturbance Upper Extremity (R) : No Weakness Lower Extremity (L) : No Weakness Lower Extremity (R) : No Weakness Upper Extremity (L) : No Weakness Upper Extremity (R) : No Trouble with speech : No Anastacia Araiza LPN - 02/14/2023 7:02 EDT Stomach/Bowel Review of Systems Grid Constipation : No Diarrhea : No Nausea : No Vomiting : No Anastacia Araiza AMANDA - 02/14/2023 7:02 EDT Hematology Review of Systems Grid Bleeds Easily : Yes Blood Clots : No Low Blood Count : No Anastacia Araiza PULVERIZER - 02/14/2023 7:02 EDT Sleep Review of Systems Grid Daytime Sleepiness : No Fatigue : No Insomnia : No Snoring : No [2] I have reviewed and assessed the [place] Automated Rx Reporting System (OARRS) report for this patientfor refill pattern and other prescriber involvement as part of the appropriate surveillance for theprovision of acute and chronic controlled medications. The report was requested and reviewed on thedate of this entry, and was considered in the prescribing process. Patient shows no signs of abuse,misuse or diversion of the pain medications. Patient was re-educated on safe use and storage of controlled substances. They are to only take medication as directed, keep opioids locked and away from sight, and to never share medications with others. I have reviewed and agree with any documentation taken by the ancillary staff. Physical Exam Vitals and Measurements HR: 52 RR: 13 BP: 138/89 SpO2: 98% HT: 167.6 cm WT: 116.2 kg BMI: 41.37 Primary Pain Intensity: 7 (02/14/23 07:02:00) GENERAL: Well nourished ; no acute distress, follows simple commands. Good hygiene. Answers questions appropriately. ASSISTIVE DEVICES: None . PSYCHIATRIC: Alert and oriented x 3 , cooperative EXTREMITIES: Bilateral+1 lower extremity pitting edema. Pedal pulses thready. No tenderness calf compression. NEURO: negativeseated straight leg raising. Sensation grossly intact. Dorsiflexion and plantarflexion are intact. MUSCULOSKELETAL: Gait normal . Parts Counter Representative strength equal Strengths 5/5 in upper and 5/5 in lower extremities. Lumbar spine range of motion intact. Good muscle tone to upper and lower extremities. Tenderness when palpating the lower lumbar spine, more to the left. Muscle tension noted throughout without trigger points. 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 Type: Cigarettes., 11/10/2022 Nicotine Use: Never (less than 100 in lifetime)., 06/24/2019 Family History Breast cancer: Sister. Diabetes: Mother. Heart disease: Mother and Father. Hypertension: Mother. Stroke: Father. Assessment/Plan 1. Lumbar postlaminectomy syndrome We will proceed forward with petitioning insurance for another lumbar epidural steroid injection. He was given the preprocedure instructions requirements. Verbalized understanding. Hold Eliquis 4 days prior to the procedure per cardiology. Continue to stay active and work on weight reduction. Stretching exercises discussed. Ordered: PM Inj Spine L/S With Imaging 15460 2. Lumbar stenosis with neurogenic claudication Ordered: PM Inj Spine L/S With Imaging [id number] 3. Lumbar radiculopathy Ordered: PM Inj Spine L/S With Imaging [id number] 4. Anticoagulated by anticoagulation treatment Ordered: PM Inj Spine L/S With Imaging 31003 Problem List/Past Medical History Ongoing Actinic keratoses Anticoagulated by anticoagulation treatment Aortic atherosclerosis At low risk for fall BMI 40.0-44.9, adult CAD - Coronary artery disease Chest pain DDD (degenerative disc disease), lumbar Depression screen Former smoker Gout History of bilevel positive airway pressure (BiPAP) therapy HLD - Hyperlipidemia Hypercoagulability due to atrial fibrillation Hypersomnolence Hypertensive heart disease without CHF Immunization due Immunization refused Lumbar postlaminectomy syndrome Lumbar radiculopathy Lumbar stenosis with neurogenic claudication Lung nodule Medicare annual wellness visit, subsequent Morbid obesity Myalgia due to statin Need for hepatitis C screening test Nephrolithiasis Neurogenic claudication Old UT (myocardial infarction) MARIELENA treated with BiPAP Osteoarthritis Paroxysmal A-fib Peripheral vascular disease Previous back surgery PSA elevation PVCs (premature ventricular contractions) S/P ablation of atrial fibrillation Screen for colon cancer Screening due Screening for prostate cancer Severe obstructive sleep apnea Spondylolisthesis of lumbar region Historical No qualifying data Procedure/Surgical History Ablation - action: 12/08/22 Left knee: 01/23/15 Left shoulder: 08/22/13 Hernia: 04/2009 Right shoulder: 02/19/09 Back Allergies rosuvastatin (severe myalgias) Betaxolol Hydrochloride (Low heart rate) CloNIDine HCl (Unknown) lisinopril (Ang [1] [1] Specialty Office Visit Note; GOKUL JANG 02/14/2023 07:52 EDT Digitally Signed by RICKEY HUNG MD on 03/15/2023 08:47 AM [facility][1] Pain [id number] Discharge summary Hospital Course Patient underwent uncomplicated PVI and CTI ablation yesterday and is discharged home in good condition today. Allergies rosuvastatin (severe myalgias) Betaxolol Hydrochloride (Low heart rate) CloNIDine HCl (Unknown) lisinopril (Angioedema) Consults No qualifying data available. Physical Exam Vitals and Measurements T: 36.8 C (Oral) TMIN: 36.8 C (Oral) TMAX: 37.3 C (Oral) HR: 56 RR: 18 BP: 112/66 SpO2: 93% Weight Dosing Weight: 116.5 kg (11/10/22) General: Alert and oriented, no apparent distress CV: Regular rate and rhythm Pulm: No rales or wheezing Abd: Soft, nontender Ext: No clubbing, cyanosis, or edema Code Status No qualifying data available. Medications New Prescription pantoprazole (pantoprazole 40 mg oral enteric coated tablet)1 tab(s) by mouth once a day. Refills: 0. Unchanged allopurinol (allopurinol 100 mg oral tablet)1 tab(s) by mouth two (2) times a day for 90 Days. Refills: 1. amLODIPine (amLODIPine 5 mg oral tablet)1 tab(s) by mouth once a day for 90 Days. Refills: 1. apixaban (Eliquis 5 mg oral tablet)1 tab(s) by mouth two (2) times a day. ezetimibe (Zetia 10 mg oral tablet)1 tab(s) by mouth every day for 90 Days. Refills: 1. hydrochlorothiazide-spironolactone (hydrochlorothiazide-spironolactone 25 mg-25 mg oral tablet)1 tab(s) by mouth every day for 90 Days. Refills: 1. nitroGLYcerin (nitroglycerin 0.4 mg sublingual tablet)1 tab(s) under the tongue every 5 minutes as needed for chest pain for 90 Days. not to exceed 3 doses/15 min--if pain persists, seek medical attention. Refills: 0. potassium citrate (potassium citrate 15 mEq oral tablet, extended release)1 tab(s) Oral BID. Follow Up Follow Up with HERVE OLIVAREZ MD When 01/13/2023 11:15 AM EDT Where: [address] [facility] [address] [facility] [place] [address]- [phone] Follow Up Appointments No qualifying data available. Follow Up Labs/Studies Discharge Labs No Follow-up Labs Discharge Studies No Follow-up Studies Discharge Diet No qualifying data available. Discharge Activity No qualifying data available. Digitally Signed by HERVE OLIVAREZ MD on 11/11/2022 01:52 PM [id number] Discharge instructions Patient Education 11/11/2022 09:21:51 3-- EP Study/Ablation (04/2018) (CUSTOM) ELECTROPHYSIOLOGY STUDY/ABLATION Discharge Instructions DIET INSTRUCTIONS Resume diet as prior to procedure ACTIVITIES Do not drive FOR 24 HOURS No heavy lifting GREATER THAN 10 POUNDS or pushing or straining FOR 4 DAYS BATHING/SHOWERING May tub bathe in 4 days Do not sit in hot tub, whirlpool, or swim for 4 days May shower today WOUND CARE You may go home with a Band-Aid over your procedure site. Keep this Band-Aid on for the next 24 hours and then remove it leaving the site open to air. Some degree of bruising and tenderness is normal around the procedure site. It will take a while for any bruising to completely resolve. Keep your site clean and dry. You need to report the following to your quarrying manager: ?Any draining or oozing from the site ?Any swelling at the site ?Any increased pain or tenderness at the site ?Any numbness in your leg where the procedure was done ?Any sign of infection WATCH FOR SIGNS OF INFECTION: Elevated temperature above 100.5 Redness or swelling Increased pain Foul odor or drainage. If you have any questions, please call your doctor at the number listed on your follow up instructions. Follow all instructions given to you by your physician. Document Released: 06/26/2006 Document Revised: 2013 Document Reviewed: 06/27/2014 ExitCare Patient Information 2015 iloho. This information is not intended to replace advicegiven to you by your health care provider. Make sure you discuss any questions you have with your health care provider. Follow Up Care 09/20/2022 14:22:03 With:HERVE OLIVAREZ MD Address: [address] [facility] [address] [place] [address]- [phone] When:01/13/2023 11:15:00 [facility] 05-05-2023 Summary of episode note Discharge Instructions Thank you for allowing [facility] to assist you with your healthcare needs. The following is importantdischarge information regarding your hospital visit. Your Care Team MANASA ZENDEJAS DO What to do next Scheduled Follow-Up Appointments Appointment Type When With Where Contact InformationPC OV 11/16/2022 09:30 AM EDT [facility] Skull Base 11/21/2022 07:15 AM EDT Radiology [phone] PM OV 11/25/2022 12:00 PM EDT RICKEY HUNG MD [facility] CV OV 01/13/2023 11:15 AM EDT [facility] Follow Up Appointments Follow Up with HERVE OLIVAREZ MD When 01/13/2023 11:15 AM EDT Where: [address] [facility] [address] [place] [address]- [phone] Allergies rosuvastatin (severe myalgias) Betaxolol Hydrochloride (Low heart rate) CloNIDine HCl (Unknown) lisinopril (Angioedema) Medications Please ask your primary doctor or pharmacist before taking any other medication not listed, including over the counter drugs, herbal medications, vitamins and or supplements as they may interact withyour home medications. What How Much When Instructions Last Dose New pantoprazole (pantoprazole 40 mg oral enteric coated tablet) 1 tab(s) by mouth Once a day Pickup at [facility][id number] Unchanged allopurinol (allopurinol 100 mg oral tablet) 1 tab(s) by mouth Two (2) times a day Duration: 90 Days Unchanged amLODIPine (amLODIPine 5 mg oral tablet) 1 tab(s) by mouth Once a day Duration: 90 Days Unchanged apixaban (Eliquis 5 mg oral tablet) 1 tab(s) by mouth Two (2) times a day Unchanged ezetimibe (Zetia 10 mg oral tablet) 1 tab(s) by mouth Every day Duration: 90 Days Unchanged hydrochlorothiazide-spironolactone (hydrochlorothiazide-spironolactone 25 mg-25 mg oral tablet) 1 tab(s) by mouth Every day Duration: 90 Days Unchanged nitroGLYcerin (nitroglycerin 0.4 mg sublingual tablet) 1 tab(s) under the tongue Every 5 minutes as needed for for chest pain Duration: 90 Days not to exceed 3 doses/ 15 min--if pain persists, seek medical attention Unchanged potassium citrate (potassium citrate 15 mEq oral tablet, extended release) See instructions 1 tab(s) Oral BID Pharmacy Information [facility] #[id number]: [address] [place], [place] [id number] [phone] Please take this list to your next doctor s visit. Bring all medications you take, including over the counter medications, herbals and other supplements with you to your doctor s visit. Patients and families are reminded to discard old lists and to update any records with all medication providers or retail pharmacies. Education Materials ELECTROPHYSIOLOGY STUDY/ABLATION Discharge Instructions DIET INSTRUCTIONS Resume diet as prior to procedure ACTIVITIES Do not drive FOR 24 HOURS No heavy lifting GREATER THAN 10 POUNDS or pushing or straining FOR 4 DAYS BATHING/SHOWERING May tub bathe in 4 days Do not sit in hot tub, whirlpool, or swim for 4 days May shower today WOUND CARE You may go home with a Band-Aid over your procedure site. Keep this Band-Aid on for the next 24 hours and then remove it leaving the site open to air. Some degree of bruising and tenderness is normal around the procedure site. It will take a while for any bruising to completely resolve. Keep your site clean and dry. You need to report the following to your quarrying manager: ? Any draining or oozing from the site ? Any swelling at the site ? Any increased pain or tenderness at the site ? Any numbness in your leg where the procedure was done ? Any sign of infection WATCH FOR SIGNS OF INFECTION: Elevated temperature above 100.5 Redness or swelling Increased pain Foul odor or drainage. If you have any questions, please call your doctor at the number listed on your follow up instructions. Follow all instructions given to you by your physician. Document Released: 06/26/2006 Document Revised: 2013 Document Reviewed: 06/27/2014 ExitCare Patient Information 2015 iloho. This information is not intended to replace advicegiven to you by your health care provider. Make sure you discuss any questions you have with your health care provider. Additional Information VACCINATE! IT SAVES LIVES! Members of the community who have not yet received the COVID-19 vaccine and would like to receive it can visit one of [facility] vaccine clinics. There are many vaccine clinic locations within the [facility]. For locations and available times, please visit https://[email or web address].[place].gov/. It is important to note that some COVID mobile vaccine clinics are held outdoors and may be canceled in rainy or stormy conditions. To learn more about pediatric vaccinations (ages 5-11), we invite you to visit the [facility] webpage. https://www.[facility].org/pages/[email or web address]-Kysjl-Fxkontsrwsy-Nncrueaxgu-Bmlml-Vgd stions.htmlTo learn more about the COVID-19 vaccine, we invite you to visit the CDC website for a list of frequently asked questions. https://www.cdc.gov/coronavirus/2019-ncov/vaccines/faq.html [facility] Patient Portal Access Instructions: Stay connected with your healthcare team and access your personal medical information anytime with the [facility] Patient Portal.If you would like a full copy of your medical records, please contact the [facility] Medical Records Department, Monday through Monday between 8a.m. and 4:30p.m. Please follow the directions below to access the portal: 1.Access the email account you provided upon registration to the [facility].2.Look for an invitation email from [facility].3.Open the email and access the invitation link: Accept Invitation to DreamNotes4.Fill in the required perez to create your account. Sign into www.[employer] with your username and password that you created in the above steps to stay up to date. You can then view a summary of results, a summary of your visits, and the ability to download your summaries to your computer or send the information securely to a physician. Remember that your healthcare information is confidential, so carefully consider who you will allow to register on the [facility] Patient Portal for access to your information. You can also access the [facility] Patient Portal on the [employer]. Simply click on Health Records under PaperShare and then click on the 3Leaf logo. HOW TO SAFELY DISPOSE OF PRESCRIPTION MEDICATIONS Please use one of the following methods to safely dispose of your unused medications. 1.Use a drug disposal kit: the drug disposal pouch allows you to safely discard your old and unuseddrugs. Ask your nurse to give you one when you are discharged.2.Visit a local take-back location: Many local pharmacies and police departments have programs that collect old and unwanted prescriptiondrugs. Call your local pharmacy or go to http://Lánzanos.Salemarked/6W7Ba8m to find one close to you.3.Make use of household items: Use cat litter or old coffee grounds to dispose medications if other options arenot available. Mix your drugs with these household products, seal them in an airtight container andthrow it into the garbage. Call [facility]: [phone] to be sure your drugs can be disposed of in this way. Some medicines may require a different approach.4.Never flush your medications down the toilet. IF YOU HAVE BEEN PRESCRIBED AN OPIOID FOR PAIN If you have been prescribed an opioid (such as hydrocodone, oxycodone or morphine), it is critical to understand the possible side effects and risks of opioid pain medications. Even when taken as directed, opioids can have several side effects including: Tolerance, meaning you might need to take more of a medication for the same pain relief. Nausea, vomiting and/or constipation. Sleepiness, dizziness, dry mouth, confusion, depression or itching. Physical dependence, meaning you have withdrawal symptoms when a medication is stopped, can develop within a few days. KNOW YOUR RESPONSIBILITIES It is important to know exactly how much and how often to take the opioid pain medications you are prescribed. Never take opioids in higher amounts or more often than prescribed. Do not combine opioids with alcohol or other drugs that cause drowsiness, such as benzodiazepines, also known as benzos, including diazepam and alprazolam, muscle relaxants or sleep aids. Never sell or share prescription opioids. This is illegal. Store opioids in a secure place and out of reach of others (including children, family, friends and visitors). The last page of this document has been signed and retained as a CHART COPY. Signatures Patient Education Materials 3-- EP Study/Ablation (04/2018) (CUSTOM) Medication Leaflets My discharge plan and instructions have been reviewed and explained to me and I,KRYSTYNA PADGETT understand my current condition and have read and understand these discharge instructions. I have received a written copy of the plan/instructions. If I have questions, I am aware that I should contactmy doctor. 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 Signature: Date/Time: Relationship to Patient: Witness Name/Signature: Date/Time: [id number] Evaluation + Plan noteExtracted from: Title:History and Physical Author:HERVE OLIVAREZ MD Date:11/10/22 Orders: Ablation RF-CARTO - CV IV Catheter Insertion/Care Prn Adapter Sign Consent Future Appointments Appointment Date:11/16/2022 09:30:00 AM Scheduled Provider:MANASA ZENDEJAS DO Location:[facility] Appointment Type:PC OV Appointment Date:11/21/2022 07:15:00 AM Scheduled Provider: Location:XRAY Appointment Type:PET/CT Initial Staging Tumor Skull Base Appointment Date:11/25/2022 12:00:00 PM Scheduled Provider:RICKEY HUNG MD Location:PM Office Appointment Type:PM OV Appointment Date:01/13/2023 11:15:00 AM Scheduled Provider: Location:[facility] CAN Appointment Type:CV OV Future Scheduled Tests Radiology* PET/CT 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 Patient location: Cardiac [facility]/Cardiac Same Day Unit. Assessment Postanesthesia assessment Vitals: Vital signs from flowsheet : Vital Signs 11/10/2022 11:20 EDT Heart Rate Monitored 55 bpm LOW Respiratory Rate 16 br/min Systolic Blood Pressure Non-Invasive 108 mmHg Diastolic Blood Pressure Non-Invasive 62 mmHg 11/10/2022 11:15 EDT Heart Rate Monitored 55 bpm LOW Respiratory Rate 18 br/min Systolic Blood Pressure Non-Invasive 95 mmHg Diastolic Blood Pressure Non-Invasive 57 mmHg LOW 11/10/2022 11:10 EDT Temperature Skin 36.2 DegC Heart Rate Monitored 58 bpm LOW Respiratory Rate 16 br/min Systolic Blood Pressure Non-Invasive 92 mmHg Diastolic Blood Pressure Non-Invasive 57 mmHg LOW 11/10/2022 11:05 EDT Heart Rate Monitored 62 bpm bpm Respiratory Rate - Anes 40 br/min br/min 11/10/2022 11:00 EDT Heart Rate Monitored 61 bpm bpm Respiratory Rate - Anes 26 br/min br/min 11/10/2022 10:55 EDT Heart Rate Monitored 71 bpm bpm Respiratory Rate - Anes 13 br/min br/min 11/10/2022 10:50 EDT Heart Rate Monitored 78 bpm bpm Respiratory Rate - Anes 13 br/min br/min 11/10/2022 10:45 EDT Temperature (Route Not Specified) 35.22 DegC DegC Heart Rate Monitored 82 bpm bpm Respiratory Rate - Anes 13 br/min br/min 11/10/2022 10:40 EDT Temperature (Route Not Specified) 35.24 DegC DegC Heart Rate Monitored 51 bpm bpm Respiratory Rate - Anes 13 br/min br/min 11/10/2022 10:35 EDT Temperature (Route Not Specified) 35.24 DegC DegC Heart Rate Monitored 56 bpm bpm Respiratory Rate - Anes 13 br/min br/min 11/10/2022 10:30 EDT Temperature (Route Not Specified) 35.22 DegC DegC Heart Rate Monitored 54 bpm bpm Respiratory Rate - Anes 13 br/min br/min 11/10/2022 10:25 EDT Temperature (Route Not Specified) 35.26 DegC DegC Heart Rate Monitored 68 bpm bpm Respiratory Rate - Anes 13 br/min br/min 11/10/2022 10:20 EDT Temperature (Route Not Specified) 35.43 DegC DegC Heart Rate Monitored 62 bpm bpm Respiratory Rate - Anes 13 br/min br/min 11/10/2022 10:15 EDT Temperature (Route Not Specified) 35.33 DegC DegC Heart Rate Monitored 62 bpm bpm Respiratory Rate - Anes 13 br/min br/min 11/10/2022 10:10 EDT Temperature (Route Not Specified) 35.31 DegC DegC Heart Rate Monitored 68 bpm bpm Respiratory Rate - Anes 13 br/min br/min 11/10/2022 10:05 EDT Temperature (Route Not Specified) 35.38 DegC DegC Heart Rate Monitored 62 bpm bpm Respiratory Rate - Anes 13 br/min br/min 11/10/2022 10:00 EDT Temperature (Route Not Specified) 36.03 DegC DegC Heart Rate Monitored 67 bpm bpm Respiratory Rate - Anes 13 br/min br/min 11/10/2022 9:55 EDT Temperature (Route Not Specified) 35.37 DegC DegC Heart Rate Monitored 57 bpm bpm Respiratory Rate - Anes 13 br/min br/min 11/10/2022 9:50 EDT Temperature (Route Not Specified) 35.45 DegC DegC Heart Rate Monitored 58 bpm bpm Respiratory Rate - Anes 13 br/min br/min 11/10/2022 9:45 EDT Temperature (Route Not Specified) 35.41 DegC DegC Heart Rate Monitored 63 bpm bpm Respiratory Rate - Anes 13 br/min br/min 11/10/2022 9:40 EDT Temperature (Route Not Specified) 35.46 DegC DegC Heart Rate Monitored 59 bpm bpm Respiratory Rate - Anes 13 br/min br/min 11/10/2022 9:35 EDT Temperature (Route Not Specified) 35.47 DegC DegC Heart Rate Monitored 62 bpm bpm Respiratory Rate - Anes 13 br/min br/min 11/10/2022 9:30 EDT Temperature (Route Not Specified) 35.75 DegC DegC Heart Rate Monitored 68 bpm bpm Respiratory Rate - Anes 37 br/min br/min 11/10/2022 9:25 EDT Temperature (Route Not Specified) 35.35 DegC DegC Heart Rate Monitored 67 bpm bpm Respiratory Rate - Anes 13 br/min br/min 11/10/2022 9:20 EDT Temperature (Route Not Specified) 35.37 DegC DegC Heart Rate Monitored 55 bpm bpm Respiratory Rate - Anes 13 br/min br/min 11/10/2022 9:15 EDT Temperature (Route Not Specified) 35.37 DegC DegC Heart Rate Monitored 63 bpm bpm Respiratory Rate - Anes 13 br/min br/min 11/10/2022 9:10 EDT Temperature (Route Not Specified) 35.52 DegC DegC Heart Rate Monitored 70 bpm bpm Respiratory Rate - Anes 13 br/min br/min 11/10/2022 9:05 EDT Temperature (Route Not Specified) 35.54 DegC DegC Heart Rate Monitored 76 bpm bpm Respiratory Rate - Anes 13 br/min br/min 11/10/2022 9:00 EDT Temperature (Route Not Specified) 35.57 DegC DegC Heart Rate Monitored 78 bpm bpm Respiratory Rate - Anes 13 br/min br/min 11/10/2022 8:55 EDT Temperature (Route Not Specified) 35.61 DegC DegC Heart Rate Monitored 74 bpm bpm Respiratory Rate - Anes 13 br/min br/min 11/10/2022 8:50 EDT Temperature (Route Not Specified) 35.65 DegC DegC Heart Rate Monitored 63 bpm bpm Respiratory Rate - Anes 13 br/min br/min 11/10/2022 8:45 EDT Temperature (Route Not Specified) 35.71 DegC DegC Heart Rate Monitored 62 bpm bpm Respiratory Rate - Anes 13 br/min br/min 11/10/2022 8:40 EDT Temperature (Route Not Specified) 35.76 DegC DegC Heart Rate Monitored 63 bpm bpm Respiratory Rate - Anes 13 br/min br/min 11/10/2022 8:35 EDT Temperature (Route Not Specified) 35.84 DegC DegC Heart Rate Monitored 57 bpm bpm Respiratory Rate - Anes 13 br/min br/min 11/10/2022 8:30 EDT Temperature (Route Not Specified) 35.9 DegC DegC Heart Rate Monitored 55 bpm bpm Respiratory Rate - Anes 13 br/min br/min 11/10/2022 8:25 EDT Temperature (Route Not Specified) 35.97 DegC DegC Heart Rate Monitored 56 bpm bpm Respiratory Rate - Anes 12 br/min br/min 11/10/2022 8:20 EDT Temperature (Route Not Specified) 35.99 DegC DegC Heart Rate Monitored 52 bpm bpm Respiratory Rate - Anes 12 br/min br/min 11/10/2022 8:15 EDT Temperature (Route Not Specified) 36.11 DegC DegC Heart Rate Monitored 59 bpm bpm Respiratory Rate - Anes 12 br/min br/min 11/10/2022 8:12 EDT Systolic Blood Pressure Non-Invasive 98 mmHg mmHg Diastolic Blood Pressure Non-Invasive 63 mmHg mmHg 11/10/2022 8:10 EDT Temperature (Route Not Specified) 33.97 DegC DegC Heart Rate Monitored 62 bpm bpm Respiratory Rate - Anes 12 br/min br/min Systolic Blood Pressure Non-Invasive 102 mmHg mmHg Diastolic Blood Pressure Non-Invasive 70 mmHg mmHg 11/10/2022 8:06 EDT Systolic Blood Pressure Non-Invasive 118 mmHg mmHg Diastolic Blood Pressure Non-Invasive 84 mmHg mmHg 11/10/2022 8:05 EDT Heart Rate Monitored 69 bpm bpm Respiratory Rate - Anes 14 br/min br/min 11/10/2022 8:04 EDT Systolic Blood Pressure Non-Invasive 109 mmHg mmHg Diastolic Blood Pressure Non-Invasive 74 mmHg mmHg 11/10/2022 8:01 EDT Systolic Blood Pressure Non-Invasive 117 mmHg mmHg Diastolic Blood Pressure Non-Invasive 70 mmHg mmHg 11/10/2022 8:00 EDT Respiratory Rate - Anes 0 br/min br/min 11/10/2022 6:22 EDT Temperature Temporal Artery 36.5 DegC Peripheral Pulse Rate 64 bpm Respiratory Rate 16 br/min Systolic Blood Pressure Non-Invasive 121 mmHg Diastolic Blood Pressure Non-Invasive 75 mmHg Blood Pressure Method Automatic Blood Pressure Location Left arm Blood Pressure Cuff Size Medium , Oxygen Therapy : Oxygen Therapy & Oxygenation Information 11/10/2022 11:20 EDT Oxygen Therapy Room air Oxygen Saturation 94 % 11/10/2022 11:15 EDT Oxygen Therapy Room air Oxygen Saturation 96 % 11/10/2022 11:10 EDT Oxygen Therapy Simple mask Oxygen Saturation 99 % Oxygen Flow Rate 10 11/10/2022 11:05 EDT Oxygen Saturation 97 % % 11/10/2022 11:00 EDT Oxygen Saturation 97 % % 11/10/2022 10:55 EDT Oxygen Saturation 98 % % 11/10/2022 10:50 EDT Oxygen Saturation 98 % % 11/10/2022 10:45 EDT Oxygen Saturation 98 % % 11/10/2022 10:40 EDT Oxygen Saturation 98 % % 11/10/2022 10:35 EDT Oxygen Saturation 99 % % 11/10/2022 10:30 EDT Oxygen Saturation 99 % % 11/10/2022 10:25 EDT Oxygen Saturation 99 % % 11/10/2022 10:20 EDT Oxygen Saturation 99 % % 11/10/2022 10:15 EDT Oxygen Saturation 99 % % 11/10/2022 10:10 EDT Oxygen Saturation 99 % % 11/10/2022 10:05 EDT Oxygen Saturation 99 % % 11/10/2022 10:00 EDT Oxygen Saturation 99 % % 11/10/2022 9:55 EDT Oxygen Saturation 99 % % 11/10/2022 9:50 EDT Oxygen Saturation 99 % % 11/10/2022 9:45 EDT Oxygen Saturation 99 % % 11/10/2022 9:40 EDT Oxygen Saturation 99 % % 11/10/2022 9:35 EDT Oxygen Saturation 99 % % 11/10/2022 9:30 EDT Oxygen Saturation 99 % % 11/10/2022 9:25 EDT Oxygen Saturation 99 % % 11/10/2022 9:20 EDT Oxygen Saturation 99 % % 11/10/2022 9:15 EDT Oxygen Saturation 99 % % 11/10/2022 9:10 EDT Oxygen Saturation 99 % % 11/10/2022 9:05 EDT Oxygen Saturation 99 % % 11/10/2022 9:00 EDT Oxygen Saturation 99 % % 11/10/2022 8:55 EDT Oxygen Saturation 99 % % 11/10/2022 8:50 EDT Oxygen Saturation 99 % % 11/10/2022 8:45 EDT Oxygen Saturation 99 % % 11/10/2022 8:40 EDT Oxygen Saturation 99 % % 11/10/2022 8:35 EDT Oxygen Saturation 99 % % 11/10/2022 8:30 EDT Oxygen Saturation 99 % % 11/10/2022 8:25 EDT Oxygen Saturation 99 % % 11/10/2022 8:20 EDT Oxygen Saturation 100 % % 11/10/2022 8:15 EDT Oxygen Saturation 100 % % 11/10/2022 8:10 EDT Oxygen Saturation 100 % % 11/10/2022 8:05 EDT Oxygen Saturation 100 % % 11/10/2022 8:00 EDT Oxygen Saturation 96 % % 11/10/2022 6:22 EDT Oxygen Therapy Room air Oxygen Saturation 97 % . Mental status: at preoperative baseline. Respiratory function: respirations are non-labored, Stable. Respiratory support: none. CV function: Stable. Cardiovascular support: none. Pain: Satisfactory. Nausea status: Satisfactory. Postoperative hydration status: within normal limits. Notes: Patient is sufficiently recovered from anesthesia to participate in the evaluation. No follow-up care needed. No complications post-anesthesia.. Digitally Signed by OH APONTE MD on 11/10/2022 11:38 AM [id number] History and physical note History of Present Illness 67-year-old male with history of paroxysmal atrial fibrillation and flutter here for ablation. Physical Exam Vitals and Measurements T: 35.22 C TMIN: 33.97 C TMAX: 36.5 C (Temporal Artery) HR: 71(Monitored) RR: 16 BP: 98/63 SpO2: 98% HT: 167.6 cm WT: 116.5 kg BMI: 41.47 BMI: 41.47 Weight Dosing Weight: 116.5 kg (11/10/22) General: Alert and oriented, no apparent distress CV: Regular rate and rhythm Pulm: No rales or wheezing Abd: Soft, nontender Ext: No clubbing, cyanosis, or edema Lab Results 11/10 06:43 WBC: 6.8 Hgb: 14.5 Hct: 43.0 Platelet: 208 Neutrophil %: 74.3 Protime: 12.1 PT International Ratio: 1.0 Glucose Level: 93 Sodium Level: 144 Potassium Level: 3.7 BUN: 24.0 H Creatinine Lvl (s): 0.85 Assessment/Plan Orders: Ablation RF-CARTO - CV IV Catheter Insertion/Care Prn Adapter Sign Consent Problem List/Past Medical History Ongoing Actinic keratoses Afib Anticoagulated by anticoagulation treatment Aortic atherosclerosis At low risk for fall BMI 45.0-49.9, adult CAD - Coronary artery disease Chest pain DDD (degenerative disc disease), lumbar Depression screen Encounter for well adult exam with abnormal findings Gout History of bilevel positive airway pressure (BiPAP) therapy HLD - Hyperlipidemia Hypersomnolence Hypertension Immunization due Immunization refused Lumbar postlaminectomy syndrome Lumbar radiculopathy Lumbar stenosis with neurogenic claudication Lung nodule Morbid obesity Need for hepatitis C screening test Nephrolithiasis Neurogenic claudication Old UT (myocardial infarction) Osteoarthritis Previous back surgery PSA elevation PVCs (premature ventricular contractions) Screen for colon cancer Screening due Screening for prostate cancer Severe obstructive sleep apnea Spondylolisthesis of lumbar region Statin intolerance Historical No qualifying data Procedure/Surgical History Left knee: 01/23/15 Left shoulder: 08/22/13 Hernia: 04/2009 Right shoulder: 02/19/09 Back Medications Home Medications (7) Active allopurinol 100 mg oral tablet 100 mg = 1 tab(s), Oral, BID amLODIPine 5 mg oral tablet 5 mg = 1 tab(s), Oral, qDay Eliquis 5 mg oral tablet 5 mg = 1 tab(s), Oral, BID hydrochlorothiazide-spironolactone 25 mg-25 mg oral tablet 1 tab(s), Oral, Daily nitroglycerin 0.4 mg sublingual tablet 0.4 mg = 1 tab(s), PRN, Sublingual, q5min potassium citrate 15 mEq oral tablet, extended release See Instructions Zetia 10 mg oral tablet 10 mg = 1 tab(s), Oral, Daily Allergies rosuvastatin (severe myalgias) Betaxolol Hydrochloride (Low heart rate) CloNIDine HCl (Unknown) lisinopril (Angioedema) Social History Alcohol Type: Wine., 11/10/2022 Employment/School Status: Employed., 09/20/2022 Home/Environment 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 Type: Cigarettes., 11/10/2022 Nicotine Use: Never (less than 100 in lifetime)., 06/24/2019 Family History Breast cancer: Sister. Diabetes: Mother. Heart disease: Mother and Father. Hypertension: Mother. Stroke: Father. Immunizations diphtheria-tetanus toxoids: 0 unknown unit (05/05/20) diphtheria-tetanus toxoids: 0 unknown unit (07/10/19) SARS-CoV-2 (COVID-19) mRNA-1273 vaccine: 0.5 unknown unit (08/12/20) SARS-CoV-2 (COVID-19) mRNA-1273 vaccine: 0.5 unknown unit (07/17/20) Code Status No qualifying data available. Digitally Signed by HERVE OLIVAREZ MD on 11/10/2022 11:05 AM [id number] An[facility] Consult note Patient: KRYSTYNA PADGETT Age: 67 years Sex: Male : 1955 Associated Diagnoses: None Author: CINDY MAHER MD Preoperative Information NPO > 8 hours Anesthesia history Patient's history: negative. Health Status Allergies: Allergic Reactions (Selected) Severity Not Documented Betaxolol Hydrochloride- Low heart rate. CloNIDine HCl- Unknown. Lisinopril- Angioedema. Nonallergic Reactions (Selected) Moderate Rosuvastatin- Severe myalgias., Allergies (4) ActiveReaction rosuvastatinsevere myalgias Betaxolol HydrochlorideLow heart rate CloNIDine HClUnknown lisinoprilAngioedema Current medications: (Selected) Prescriptions Prescribed Zetia 10 mg oral tablet: Dose : 10 mg = 1 tab(s), Oral, Daily, # 90 tab(s), 1 Refill(s), Pharmacy: [facility], [facility], cm, 05/19/22 11:15:00 EST, Height allopurinol 100 mg oral tablet: Dose : 100 mg = 1 tab(s), Oral, BID, # 180 tab(s), 1 Refill(s), Pharmacy: [facility], [facility], cm, 05/19/22 11:15:00 EST, Height, kg, 05/19/22 11:15:00 EST, Dosing Weight amLODIPine 5 mg oral tablet: Dose : 5 mg = 1 tab(s), Oral, qDay, # 90 tab(s), 1 Refill(s), Pharmacy: [facility], 167, cm, 05/19/22 11:15:00 EST, Height hydrochlorothiazide-spironolactone 25 mg-25 mg oral tablet: Dose = 1 tab(s), Oral, Daily, # 90 tab(s), 1 Refill(s), Pharmacy: [facility], 167, cm, 05/19/22 11:15:00 EST, Height nitroglycerin 0.4 mg sublingual tablet: 0.4 mg Dose = 1 tab(s), Sublingual, q5min, PRN for chest pain, not to exceed 3 doses/15 min--if pain persists, seek medical attention, # 100 tab(s), 0 Refill(s), Pharmacy: [facility], 167, cm, 05/19/22 11:15:00 EST, Height Documented Medications Documented Eliquis 5 mg oral tablet: Dose : 5 mg = 1 tab(s), Oral, BID, 0 Refill(s), 122.25 potassium citrate 15 mEq oral tablet, extended release: See Instructions, 1 tab(s) Oral BID, 0 Refill(s), No qualifying data available Problem list: Medical At low risk for fall / SNOMED CT 4808815099 / Confirmed Aortic atherosclerosis / SNOMED CT 842811067 / Confirmed Afib / SNOMED CT 19801280 / Confirmed BMI 45.0-49.9, adult / SNOMED CT 0340762945 / Confirmed CAD - Coronary artery disease / SNOMED CT 0642902747 / Confirmed Chest pain / SNOMED CT 54302746 / Confirmed DDD (degenerative disc disease), lumbar / SNOMED CT 86709940 / Confirmed Anticoagulated by anticoagulation treatment / SNOMED CT 835230279 / Confirmed Gout / SNOMED CT 664545034 / Confirmed Previous back surgery / SNOMED CT 447658286 / Confirmed HLD - Hyperlipidemia / SNOMED CT 969874536 / Confirmed Hypersomnolence / SNOMED CT 944459671 / Confirmed Hypertension / SNOMED CT 76169803 / Confirmed Immunization due / SNOMED CT 475139726 / Confirmed Nephrolithiasis / SNOMED CT 117250024 / Confirmed Lumbar postlaminectomy syndrome / SNOMED CT 717670677 / Confirmed Lumbar radiculopathy / SNOMED CT 896554815 / Confirmed Spondylolisthesis of lumbar region / SNOMED CT 2780440647 / Confirmed Immunization refused / SNOMED CT 5153928409 / Confirmed Morbid obesity / SNOMED CT 907165293 / Confirmed Actinic keratoses / SNOMED CT 5856904492 / Confirmed PVCs (premature ventricular contractions) / SNOMED CT 2538494897 / Confirmed Neurogenic claudication / SNOMED CT 382240503 / Confirmed Lung nodule / SNOMED CT 8820986984 / Confirmed Severe obstructive sleep apnea / SNOMED CT 091712017 / Confirmed Old UT (myocardial infarction) / SNOMED CT 5782731 / Confirmed Osteoarthritis / SNOMED CT 6869036248 / Confirmed History of bilevel positive airway pressure (BiPAP) therapy / SNOMED CT 9979300444 / Confirmed Encounter for well adult exam with abnormal findings / SNOMED CT 180573772 / Confirmed Screening for prostate cancer / SNOMED CT 449212553 / Confirmed Screen for colon cancer / SNOMED CT 189125329 / Confirmed Depression screen / SNOMED CT 119419730 / Confirmed PSA elevation / SNOMED CT 8460642043 / Confirmed Screening due / SNOMED CT 128552404 / Confirmed Lumbar stenosis with neurogenic claudication / SNOMED CT 98687591 / Confirmed Statin intolerance / SNOMED CT 8156139396 / Confirmed Need for hepatitis C screening test / SNOMED CT 967051162 / Confirmed, Active Problems (37) Actinic keratoses Afib Anticoagulated by anticoagulation treatment Aortic atherosclerosis At low risk for fall BMI 45.0-49.9, adult CAD - Coronary artery disease Chest pain DDD (degenerative disc disease), lumbar Depression screen Encounter for well adult exam with abnormal findings Gout History of bilevel positive airway pressure (BiPAP) therapy HLD - Hyperlipidemia Hypersomnolence Hypertension Immunization due Immunization refused Lumbar postlaminectomy syndrome Lumbar radiculopathy Lumbar stenosis with neurogenic claudication Lung nodule Morbid obesity Need for hepatitis C screening test Nephrolithiasis Neurogenic claudication Old UT (myocardial infarction) Osteoarthritis Previous back surgery PSA elevation PVCs (premature ventricular contractions) Screen for colon cancer Screening due Screening for prostate cancer Severe obstructive sleep apnea Spondylolisthesis of lumbar region Statin intolerance Histories Past Medical History: No active or resolved past medical history items have been selected or recorded. Family History: Breast cancer Sister Hypertension Mother () Heart disease Mother () Father () Stroke Father () Diabetes Mother () Procedure history: PM Inj Spine L/S With Imaging SN on 09/21/2022 at 67 Years. Comments: 09/21/2022 9:09 EDGildardo - Kerrie Up RN auto-populated from documented surgical case PM Inj Spine L/S With Imaging SN on 04/06/2022 at 66 Years. Comments: 04/06/2022 8:21 EDT - Renetta Littlejohn RN auto-populated from documented surgical case Cardiac catheterisation ([id number]) on 11/08/2015 at 60 Years. Left knee ([id number]) on 01/23/2015 at 59 Years. Left shoulder ([id number]) on 08/22/2013 at 58 Years. Hernia ([id number]) in the month of 04/2009 at 53 Years. Right shoulder ([id number]) on 02/19/2009 at 53 Years. Back ([id number]). Social History Social & Psychosocial Habits Alcohol 11/10/2022 Type: Wine Comment: occasional - 06/24/2019 13:37 - Bharti Arboleda RN Employment/School 09/20/2022 Status: Employed Substance Abuse 06/24/2019 Use: Never Tobacco 06/24/2019 Tobacco Use: Never (less than 100 in l 11/10/2022 Tobacco Use: Former smoker, quit more Type: Cigarettes Home/Environment 06/24/2019 Primary Car Dryer: self Nutrition/Health 06/24/2019 Caffeine intake amount: none . Physical Examination Vital Signs(last 24 hrs) Last Charted Resp Rate 16 br/min (NOVEMBER 10 06:22) VXI695 mmHg (NOVEMBER 10 06:22) DBP75 mmHg (NOVEMBER 10 06:22) BMI41.47 (NOVEMBER 10 06:22) Measurements from flowsheet : Measurements 11/10/2022 6:22 EDT Height 167.6 cm Height in inches 66 inch(es) Admission Weight 116.5 kg Weight Lbs 256.3 lb Weight Method Actual [place] Body Weight 63.76 kg Body Mass Index 41.47 kg/m2 Body Mass Index 41.47 kg/m2 Admission Body Mass Index 41.47 m2 General: Alert and oriented. Airway: Mallampati classification: II (soft palate, fauces, uvula visible). Dentition Evaluation: Intact. Respiratory: Lungs are clear to auscultation, Respirations are non-labored. Cardiovascular: Normal rate, Regular rhythm. Heart Sounds: Normal. Neurologic: Alert, Oriented. Review / Management Documentation reviewed: Current records. Assessment and Plan [place] [employer] Anesthesiologists (ASA) physical status classification: Class III. Anesthetic Preoperative Plan Premedication: intravenous. Anesthetic technique: General. Induction: intravenously. Maintenance airway: Oral endotracheal tube. Special Monitoring: Arterial line. Postoperative pain management: Per surgeon. Informed consent: signed by patient. Notes: A-Fib. Digitally Signed by CINDY MAHER MD on 11/10/2022 07:50 AM [id number] Discharge instructions Patient Education 09/21/2022 08:40:58 Epidural Steroid Injection, Care After Epidural Steroid Injection, Care After Refer to this sheet in the next few weeks. These instructions provide you with information about caring for yourself after your procedure. Your health care provider may also give you more specific instructions. Your treatment has been planned according to current medical practices, but problems sometimes occur. Call your health care provider if you have any problems or questions after your procedure. What can I expect after the procedure? After your procedure, it is common to feel a little discomfort at the injection site. Follow these instructions at home: For 24 hours after the procedure: ?Avoid using heat on the injection site. ?Do not take a tub bath, and do not soak in water. ?Do not drive if you received a medicine to help you relax (sedative). If directed, put ice on the injection site: ?Put ice in a plastic bag. ?Place a towel between your skin and the bag. ?Leave the ice on for 20 minutes, 2 3 times a day. Return to your normal activities as told by your health care provider. Ask your health care provider what activities are safe for you. You may remove the bandage (dressing) after 24 hours. Take vmiq-dbj-xojvilo and prescription medicines only as told by your health care provider. Keep all follow-up visits as told by your health care provider. This is important. Contact a health care provider if: You have a fever. You continue to have pain and soreness around the injection site, even after taking gdah-bne-iezebdx pain medicine. You have severe, sudden, or lasting nausea or vomiting. Get help right away if: You have severe pain at the injection site that is not relieved by medicines. You develop a severe headache or a stiff neck. You become sensitive to light. You have any new numbness or weakness in your legs or arms. You lose control of your bladder or bowel movements. You have trouble breathing. This information is not intended to replace advice given to you by your health care provider. Make sure you discuss any questions you have with your health care provider. Document Released: 10/11/2011 Document Revised: 06/08/2018 Document Reviewed: 10/11/2016 [employer] Patient Education 2020 [employer]. [facility] Summary of episode note Discharge Instructions Thank you for allowing [facility] to assist you with your healthcare needs. The following is importantdischarge information regarding your hospital visit. Your Care Team MANASA ZENDEJAS DO Your Diagnosis Lumbar postlaminectomy syndrome Lumbar stenosis with neurogenic claudication Spondylolisthesis of lumbar region Morbid obesity Anticoagulated by anticoagulation treatment What to do next Scheduled Follow-Up Appointments Appointment Type When With Where Contact InformationEP Ablation RF-CARTO 10/21/2022 08:00 AM EDT [facility] OV 11/16/2022 09:30 AM EDT MANASA ZENDEJAS DO [facility] CV OV 12/21/2022 11:45 AM EDT [facility] [place] Allergies rosuvastatin (severe myalgias) Betaxolol Hydrochloride (Low heart rate) CloNIDine HCl (Unknown) lisinopril (Angioedema) Medications Please ask your primary doctor or pharmacist before taking any other medication not listed, including over the counter drugs, herbal medications, vitamins and or supplements as they may interact withyour home medications. What How Much When Instructions Last Dose Unchanged allopurinol (allopurinol 100 mg oral tablet) 1 tab(s) by mouth Two (2) times a day Duration: 90 Days Unchanged amLODIPine (amLODIPine 5 mg oral tablet) 1 tab(s) by mouth Once a day Duration: 90 Days Unchanged apixaban (Eliquis 5 mg oral tablet) 1 tab(s) by mouth Two (2) times a day Unchanged ezetimibe (Zetia 10 mg oral tablet) 1 tab(s) by mouth Every day Duration: 90 Days Unchanged hydrochlorothiazide-spironolactone (hydrochlorothiazide-spironolactone 25 mg-25 mg oral tablet) 1 tab(s) by mouth Every day Duration: 90 Days Unchanged nitroGLYcerin (nitroglycerin 0.4 mg sublingual tablet) 1 tab(s) under the tongue Every 5 minutes as needed for for chest pain Duration: 90 Days not to exceed 3 doses/ 15 min--if pain persists, seek medical attention Unchanged potassium citrate (potassium citrate 15 mEq oral tablet, extended release) See instructions 1 tab(s) Oral BID Please take this list to your next doctor s visit. Bring all medications you take, including over the counter medications, herbals and other supplements with you to your doctor s visit. Patients and families are reminded to discard old lists and to update any records with all medication providers or retail pharmacies. Education Materials Epidural Steroid Injection, Care After Refer to this sheet in the next few weeks. These instructions provide you with information about caring for yourself after your procedure. Your health care provider may also give you more specific instructions. Your treatment has been planned according to current medical practices, but problems sometimes occur. Call your health care provider if you have any problems or questions after your procedure. What can I expect after the procedure? After your procedure, it is common to feel a little discomfort at the injection site. Follow these instructions at home: For 24 hours after the procedure: ? Avoid using heat on the injection site. ? Do not take a tub bath, and do not soak in water. ? Do not drive if you received a medicine to help you relax (sedative). If directed, put ice on the injection site: ? Put ice in a plastic bag. ? Place a towel between your skin and the bag. ? Leave the ice on for 20 minutes, 2 3 times a day. Return to your normal activities as told by your health care provider. Ask your health care provider what activities are safe for you. You may remove the bandage (dressing) after 24 hours. Take zkpv-ejy-lhqmhij and prescription medicines only as told by your health care provider. Keep all follow-up visits as told by your health care provider. This is important. Contact a health care provider if: You have a fever. You continue to have pain and soreness around the injection site, even after taking mkvy-pje-qkfxuhw pain medicine. You have severe, sudden, or lasting nausea or vomiting. Get help right away if: You have severe pain at the injection site that is not relieved by medicines. You develop a severe headache or a stiff neck. You become sensitive to light. You have any new numbness or weakness in your legs or arms. You lose control of your bladder or bowel movements. You have trouble breathing. This information is not intended to replace advice given to you by your health care provider. Make sure you discuss any questions you have with your health care provider. Document Released: 10/11/2011 Document Revised: 06/08/2018 Document Reviewed: 10/11/2016 [employer] Patient Education 2020 [employer]. Additional Information VACCINATE! IT SAVES LIVES! Members of the community who have not yet received the COVID-19 vaccine and would like to receive it can visit one of [facility] vaccine clinics. There are many vaccine clinic locations within the [facility]. For locations and available times, please visit https://gettheshot.coronavirus.[place].gov/. It is important to note that some COVID mobile vaccine clinics are held outdoors and may be canceled in rainy or stormy conditions. To learn more about pediatric vaccinations (ages 5-11), we invite you to visit the [facility] webpage. [email or web address]/[email or web address] [email or web address] learn more about the COVID-19 vaccine, we invite you to visit the CDC website for a list of frequently asked questions. https://www.cdc.gov/coronavirus/2019-ncov/vaccines/faq.html [facility] Patient Portal Access Instructions: Stay connected with your healthcare team and access your personal medical information anytime with the [facility] Patient Portal.If you would like a full copy of your medical records, please contact the [facility] Medical Records Department, Monday through Monday between 8a.m. and 4:30p.m. Please follow the directions below to access the portal: 1.Access the email account you provided upon registration to the [facility].2.Look for an invitation email from [facility].3.Open the email and access the invitation link: Accept Invitation to [facility]4.Fill in the required perez to create your account. Sign into [email or web address] with your username and password that you created in the above steps to stay up to date. You can then view a summary of results, a summary of your visits, and the ability to download your summaries to your computer or send the information securely to a physician. Remember that your healthcare information is confidential, so carefully consider who you will allow to register on the [facility] Patient Portal for access to your information. You can also access the [facility] Patient Portal on the [employer]. Simply click on Health Records under [employer] and then click on the [facility] logo. HOW TO SAFELY DISPOSE OF PRESCRIPTION MEDICATIONS Please use one of the following methods to safely dispose of your unused medications. 1.Use a drug disposal kit: the drug disposal pouch allows you to safely discard your old and unuseddrugs. Ask your nurse to give you one when you are discharged.2.Visit a local take-back location: Many local pharmacies and police departments have programs that collect old and unwanted prescriptiondrugs. Call your local pharmacy or go to http://Lánzanos.Salemarked/5Z4Fj9i to find one close to you.3.Make use of household items: Use cat litter or old coffee grounds to dispose medications if other options arenot available. Mix your drugs with these household products, seal them in an airtight container andthrow it into the garbage. Call [facility]: [phone] to be sure your drugs can be disposed of in this way. Some medicines may require a different approach.4.Never flush your medications down the toilet. IF YOU HAVE BEEN PRESCRIBED AN OPIOID FOR PAIN If you have been prescribed an opioid (such as hydrocodone, oxycodone or morphine), it is critical to understand the possible side effects and risks of opioid pain medications. Even when taken as directed, opioids can have several side effects including: Tolerance, meaning you might need to take more of a medication for the same pain relief. Nausea, vomiting and/or constipation. Sleepiness, dizziness, dry mouth, confusion, depression or itching. Physical dependence, meaning you have withdrawal symptoms when a medication is stopped, can develop within a few days. KNOW YOUR RESPONSIBILITIES It is important to know exactly how much and how often to take the opioid pain medications you are prescribed. Never take opioids in higher amounts or more often than prescribed. Do not combine opioids with alcohol or other drugs that cause drowsiness, such as benzodiazepines, also known as benzos, including diazepam and alprazolam, muscle relaxants or sleep aids. Never sell or share prescription opioids. This is illegal. Store opioids in a secure place and out of reach of others (including children, family, friends and visitors). The last page of this document has been signed and retained as a CHART COPY. Signatures Patient Education Materials Epidural Steroid Injection, Care After Medication Leaflets My discharge plan and instructions have been reviewed and explained to me and I,KRYSTYNA PADGETT understand my current condition and have read and understand these discharge instructions. I have received a written copy of the plan/instructions. If I have questions, I am aware that I should contactmy doctor. 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 History and Physical Chief Complaint Pt c/o returning sharp pain in L hip and buttock with feeling of pins and needles in LLE. History of Present Illness Patient returns for routine follow-up today chief complaint of left gluteal sharp stabbing pain andleft leg pain and paresthesia when standing and walking. I last saw him in May at that point he was still having good relief from the epidural steroid injection which had been done in March. Actually had no return of leg pain at that point. Patient says in general he has 75% relief of pain and improve mobility walking tolerance for about 4 months after the epidural steroid injection done in March. That is worn off completely about a month ago now rating pain again as a 7 out of 10. Does not have symptoms in the right leg but left leg pain is identical to what he was having this past summer. He says when he sitting he is pretty comfortable with standing and walking he has pain that radiates to the left foot. No focal weakness. At last visit he was undergoing cardiac testing and now he has been diagnosed with paroxysmal atrial fibrillation he is now taking Eliquis. Patient says that he talk to his french folding machine operator in [place] who says that theoretically he would have permission to stop Eliquis for epidural steroid injectionsif needed. Patient says that he is going to see his french folding machine operator the first week of September again. But he would like to schedule the epidural steroid injection. 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 I have reviewed the [facility] Reporting System (OARRS) report for this patient for refill pattern and other prescriber involvement as part of the appropriate surveillance for the provision ofacute and chronic controlled medications. The report was reviewed on the date of this entry, and was considered in the prescribing process. Physical Exam Vitals and Measurements HR: 58 RR: 17 BP: 116/80 SpO2: 94% HT: 167.6 cm WT: 118 kg BMI: 42.01 Oxygen Therapy: Room air Primary Pain Intensity: 7 (08/26/22 07:05:00) Alert pleasant male in no distress cognition excellent morbidly obese Negative straight leg raise at 90 degrees Absent Achilles reflex diminished left patellar reflex as well trace to 1+. Ankle dorsiflexion power normal knee extension power normal. Hip rotation asymptomatic. When he stands up he has pain in his left gluteal region that radiates to the left foot. 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 Diabetes: Mother. Heart disease: Mother and Father. Hypertension: Mother. Stroke: Father. Assessment/Plan 1. Lumbar postlaminectomy syndrome Ordered: Ambulatory Office Communication Order PM Inj Spine L/S With Imaging [id number] 2. Lumbar stenosis with neurogenic claudication Very good relief lasting about 4 months 75% from epidural steroid injection done x1 in March atthe left L2-3 level under fluoroscopy. We will request another epidural steroid injection at the L2-3 level at this juncture. Last injection was able to be accomplished with a 20-gauge 3.5 inch Flynn needle. I told patient not to change any medications or make definite arrangements because we will need to appeal to insurance and will need cardiac clearance for him to hold Eliquis for 4 days for this procedure. Additional preprocedural instructions printed for him. Ordered: Ambulatory Office Communication Order PM Inj Spine L/S With Imaging [id number] 3. Spondylolisthesis of lumbar region Ordered: Ambulatory Office Communication Order PM Inj Spine L/S With Imaging [id number] 4. Morbid obesity Ordered: Ambulatory Office Communication Order PM Inj Spine L/S With Imaging [id number] 5. Anticoagulated by anticoagulation treatment New diagnosis of atrial fibrillation has now been on Eliquis for about 3 months Ordered: PM Inj Spine L/S With Imaging [id number] Problem List/Past Medical History Ongoing Actinic keratoses Anticoagulated by anticoagulation treatment At low risk for fall BMI 45.0-49.9, adult CAD - Coronary artery disease Chest pain DDD (degenerative disc disease), lumbar Depression screen Encounter for well adult exam with abnormal findings Gout History of bilevel positive airway pressure (BiPAP) therapy HLD - Hyperlipidemia Hypersomnolence Hypertension Immunization due Immunization refused Lumbar postlaminectomy syndrome Lumbar radiculopathy Lumbar stenosis with neurogenic claudication Morbid obesity Need for hepatitis C screening test Nephrolithiasis Neurogenic claudication Old [place] (myocardial infarction) Osteoarthritis Previous back surgery PSA elevation Screen for colon cancer Screening due Screening for prostate cancer Severe obstructive sleep apnea Spondylolisthesis of lumbar region Statin intolerance Historical No qualifying data Procedure/Surgical History Left knee: 01/23/15 Left shoulder: 08/22/13 Hernia: 04/2009 Right shoulder: 02/19/09 Back Allergies rosuvastatin (severe myalgias) Betaxolol Hydrochloride (Low heart rate) CloNIDine HCl (Unknown) lisinopril (Angioedema) [1] [1] Specialty Office Visit Note; RICKEY HUNG MD 08/26/2022 07:48 EST Digitally Signed by RICKEY HUNG MD on 09/21/2022 08:40 AM [facility][1] Pain [id number] Hospital Discharge instructions Patient Education 04/06/2022 08:20:13 Epidural Steroid Injection, Care After Epidural Steroid Injection, Care After Refer to this sheet in the next few weeks. These instructions provide you with information about caring for yourself after your procedure. Your health care provider may also give you more specific instructions. Your treatment has been planned according to current medical practices, but problems sometimes occur. Call your health care provider if you have any problems or questions after your procedure. What can I expect after the procedure? After your procedure, it is common to feel a little discomfort at the injection site. Follow these instructions at home: For 24 hours after the procedure: ?Avoid using heat on the injection site. ?Do not take a tub bath, and do not soak in water. ?Do not drive if you received a medicine to help you relax (sedative). If directed, put ice on the injection site: ?Put ice in a plastic bag. ?Place a towel between your skin and the bag. ?Leave the ice on for 20 minutes, 2 3 times a day. Return to your normal activities as told by your health care provider. Ask your health care provider what activities are safe for you. You may remove the bandage (dressing) after 24 hours. Take pnpf-yus-ctpmzdy and prescription medicines only as told by your health care provider. Keep all follow-up visits as told by your health care provider. This is important. Contact a health care provider if: You have a fever. You continue to have pain and soreness around the injection site, even after taking ewly-ebt-cxhbroh pain medicine. You have severe, sudden, or lasting nausea or vomiting. Get help right away if: You have severe pain at the injection site that is not relieved by medicines. You develop a severe headache or a stiff neck. You become sensitive to light. You have any new numbness or weakness in your legs or arms. You lose control of your bladder or bowel movements. You have trouble breathing. This information is not intended to replace advice given to you by your health care provider. Make sure you discuss any questions you have with your health care provider. Document Released: 10/11/2011 Document Revised: 06/08/2018 Document Reviewed: 10/11/2016 [employer] Patient Education 2019 [employer]. [facility] 09-28-2022 Summary of episode note Discharge Instructions Thank you for allowing [facility] to assist you with your healthcare needs. The following is importantdischarge information regarding your hospital visit. Your Care Team MANASA ZENDEJAS DO Your Diagnosis Lumbar postlaminectomy syndrome Lumbar stenosis with neurogenic claudication Morbid obesity CAD - Coronary artery disease Medications Please ask your primary doctor or pharmacist before taking any other medication not listed, including over the counter drugs, herbal medications, vitamins and or supplements as they may interact withyour home medications. What How Much When Instructions Last Dose Unchanged allopurinol (allopurinol 100 mg oral tablet) 1 tab(s) by mouth Two (2) times a day Duration: 90 Days Unchanged amLODIPine (amLODIPine 5 mg oral tablet) 1 tab(s) by mouth Once a day Unchanged aspirin (aspirin 81 mg oral delayed release tablet) 1 tab(s) by mouth Every day Unchanged ezetimibe (Zetia 10 mg oral tablet) 1 tab(s) by mouth Every day Unchanged hydrochlorothiazide-spironolactone (hydrochlorothiazide-spironolactone 25 mg-25 mg oral tablet) 1 tab(s) by mouth Every day Unchanged potassium citrate (potassium citrate 15 mEq oral tablet, extended release) See instructions 1 tab(s) Oral BID Please take this list to your next doctor s visit. Bring all medications you take, including over the counter medications, herbals and other supplements with you to your doctor s visit. Patients and families are reminded to discard old lists and to update any records with all medication providers or retail pharmacies. Education Materials Epidural Steroid Injection, Care After Refer to this sheet in the next few weeks. These instructions provide you with information about caring for yourself after your procedure. Your health care provider may also give you more specific instructions. Your treatment has been planned according to current medical practices, but problems sometimes occur. Call your health care provider if you have any problems or questions after your procedure. What can I expect after the procedure? After your procedure, it is common to feel a little discomfort at the injection site. Follow these instructions at home: For 24 hours after the procedure: ? Avoid using heat on the injection site. ? Do not take a tub bath, and do not soak in water. ? Do not drive if you received a medicine to help you relax (sedative). If directed, put ice on the injection site: ? Put ice in a plastic bag. ? Place a towel between your skin and the bag. ? Leave the ice on for 20 minutes, 2 3 times a day. Return to your normal activities as told by your health care provider. Ask your health care provider what activities are safe for you. You may remove the bandage (dressing) after 24 hours. Take lirg-xrr-ptcvwmw and prescription medicines only as told by your health care provider. Keep all follow-up visits as told by your health care provider. This is important. Contact a health care provider if: You have a fever. You continue to have pain and soreness around the injection site, even after taking jmes-kxn-khubtwt pain medicine. You have severe, sudden, or lasting nausea or vomiting. Get help right away if: You have severe pain at the injection site that is not relieved by medicines. You develop a severe headache or a stiff neck. You become sensitive to light. You have any new numbness or weakness in your legs or arms. You lose control of your bladder or bowel movements. You have trouble breathing. This information is not intended to replace advice given to you by your health care provider. Make sure you discuss any questions you have with your health care provider. Document Released: 10/11/2011 Document Revised: 06/08/2018 Document Reviewed: 10/11/2016 [employer] Patient Education 2020 [employer] Additional Information VACCINATE! IT SAVES LIVES! Members of the community who have not yet received the COVID-19 vaccine and would like to receive it can visit one of [facility] vaccine clinics. There are many vaccine clinic locations within the [facility]. For locations and available times, please visit [email or web address].gov/. It is important to note that some COVID mobile vaccine clinics are held outdoors and may be canceled in rainy or stormy conditions. To learn more about pediatric vaccinations (ages 5-11), we invite you to visit the [facility] webpage. [email or web address]/[email or web address].htmlTo learn more about the COVID-19 vaccine, we invite you to visit the [facility] website for a list of frequently asked questions. [email or web address] [facility] Patient Portal Access Instructions: Stay connected with your healthcare team and access your personal medical information anytime with the [facility] [employer] Patient Portal.If you would like a full copy of your medical records, please contact the [facility] Medical Records Department, Monday through Monday between 8a.m. and 4:30p.m. Please follow the directions below to access the portal: 1.Access the email account you provided upon registration to the [facility].2.Look for an invitation email from [facility].3.Open the email and access the invitation link: Accept Invitation to [facility]4.Fill in the required perez to create your account. Sign into [email or web address] with your username and password that you created in the above steps to stay up to date. You can then view a summary of results, a summary of your visits, and the ability to download your summaries to your computer or send the information securely to a physician. Remember that your healthcare information is confidential, so carefully consider who you will allow to register on the [facility] [employer] Patient Portal for access to your information. You can also access the [facility] [employer] Patient Portal on the [employer]. Simply click on Health Records under HealthData and then click on the [facility] logo. HOW TO SAFELY DISPOSE OF PRESCRIPTION MEDICATIONS Please use one of the following methods to safely dispose of your unused medications. 1.Use a drug disposal kit: the drug disposal pouch allows you to safely discard your old and unuseddrugs. Ask your nurse to give you one when you are discharged.2.Visit a local take-back location: Many local pharmacies and police departments have programs that collect old and unwanted prescriptiondrugs. Call your local pharmacy or go to http://bit.ly/1B7Nx6p to find one close to you.3.Make use of household items: Use cat litter or old coffee grounds to dispose medications if other options arenot available. Mix your drugs with these household products, seal them in an airtight container andthrow it into the garbage. Call [facility]: [phone] to be sure your drugs can be disposed of in this way. Some medicines may require a different approach.4.Never flush your medications down the toilet. IF YOU HAVE BEEN PRESCRIBED AN OPIOID FOR PAIN If you have been prescribed an opioid (such as hydrocodone, oxycodone or morphine), it is critical to understand the possible side effects and risks of opioid pain medications. Even when taken as directed, opioids can have several side effects including: Tolerance, meaning you might need to take more of a medication for the same pain relief. Nausea, vomiting and/or constipation. Sleepiness, dizziness, dry mouth, confusion, depression or itching. Physical dependence, meaning you have withdrawal symptoms when a medication is stopped, can develop within a few days. KNOW YOUR RESPONSIBILITIES It is important to know exactly how much and how often to take the opioid pain medications you are prescribed. Never take opioids in higher amounts or more often than prescribed. Do not combine opioids with alcohol or other drugs that cause drowsiness, such as benzodiazepines, also known as benzos, including diazepam and alprazolam, muscle relaxants or sleep aids. Never sell or share prescription opioids. This is illegal. Store opioids in a secure place and out of reach of others (including children, family, friends and visitors). The last page of this document has been signed and retained as a CHART COPY. Signatures Patient Education Materials Epidural Steroid Injection, Care After Medication Leaflets My discharge plan and instructions have been reviewed and explained to me and I,KRYSTYNA PADGETT understand my current condition and have read and understand these discharge instructions. I have received a written copy of the plan/instructions. If I have questions, I am aware that I should contactmy doctor. 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 Patient was seen last month. Denies major new medical problems or medications since last seen. We have obtained a formal approval from cardiology for him to hold aspirin which she has done. He has also seen neurosurgery for consultation who acknowledges severe spinal abnormalities will consider surgery if pain not managed well by injection. He is here for firstepidural steroid injection today to be done above his prior laminectomy at the L2-3 level. Brief exam he has normal hip motion he is morbidly obese extending lumbar spine increases back painradiates into the left leg. History and Physical Chief Complaint C/o bilateral lower back, bilateral hip aching pain. Pt states left hip is worse than right. Pt also had lef LE pins & needles. History of Present Illness This a pleasant 66-year-old male referred by primary care with a chief complaint of low back pain transverse bilateral hip pain and pain and paresthesia that radiates into the left leg. Patient has a pertinent history of prior lumbar discectomy at left L3-4 done about 20 years ago in [place]. Says he did well for several years about 6 months ago he noticed without new trauma increasing transverse back pain at the lumbosacral junction involving bilateral lateral hips but also a pain and paresthesia that radiates from the left gluteal region into the posterior lateral thigh calfending at the foot level. Patient says standing activities generally increase leg pain. He has someimprovement when he sits down. Does not have similar pain in the right leg. Says that resting at night he has mild back pain but no significant nerve pain in the left leg. Patient was working with primary care physician did go through around 2 months of physical therapy unfortunately did not help him. Later had an EMG nerve conduction test in December that revealed findings consistent with lumbar radiculopathy left greater than right involving the primarily L4-5 myotome.Nerve conduction testing did not reveal findings to suggest peripheral neuropathy. MRI of lumbar spine was done recently that reveals a postlaminectomy defect at L3-4. He does have aspondylolisthesis grade 1 at L4-5 grade 2 at L5-S1. According to the body of the report there is severe neural foraminal stenosis at L5-S1 and to a lesser degree at L4-5. Patient says he has been referred to a spine surgeon (Dr. Aj). That appointment is in a couple of weeks. He takes no opioid analgesics. With further questioning he does take a baby aspirin is followed by [place] cardiology but says he has not had cardiovascular disease but has rhythm problems at times. He does not take full anticoagulation. Patient says despite the pain he still able to do activities he was able to paint a room and he ritu those activities at times he has limiting left leg pain but no obvious weakness denies involuntary limb movements or swelling or rash. He says he is continent of bowel and bladder. Does not have neck or upper extremity pain complaints. Rates his pain as a 6 out of 10 but it varies Review of Systems See review of systems and nurse intake note. ROS AMB Chief Complaint : C/o bilateral lower back, bilateral hip aching pain. Pt states left hip is worse than right. Pt also had lef LE pins & needles. Treatment Response : Pt states leg ad back pain increases w/ standing. Pt has hx physical therapy x2 months ago w/ no relief. Pt states he is not taking anything for pain, pt does not use ice or heat. Most recent MRI was at [facility] in December. Kirit Garibay [facility] 02/11/2022 8:39 EDT General Review of Systems Grid Fever : No Weight Gain : No Weight Loss : No Kirit Garibay MA 02/11/2022 8:39 EDT Head and Neck Review of Systems Grid Blurred Vision : No Difficulty swallowing : No Hearing Loss : No Hoarseness : No Loss of Vision : No Sore Throat : No Kirit Garibay MA 02/11/2022 8:39 EDT Respiratory/Lungs Review of Systems Grid Coughing : No Shortness of Breath : Yes Kirit Garibay MA 02/11/2022 8:39 EDT Skeletal Review of Systems Grid Joints Swelling/Stiffness : Yes Pain in Joint(s) : Yes Kirit Garibay MA 02/11/2022 8:39 EDT Heart/Vascular Review of Systems Grid Chest pain/tightness : No Irregular Heartbeat : Yes Rapid Heart Beat : No Kirit Garibay MA 02/11/2022 8:39 EDT Neuro Review of Systems Grid Difficulty w/Balance : No Difficulty Walking : No Loss of Consciousness : No Memory Loss : No Paralysis Lower Extremity (L) : No Paralysis Lower Extremity (R) : No Paralysis Upper Extremity (L) : No Paralysis Upper Extremity (R) : No Sensory Disturbance Lower Extremity (L) : No Sensory Disturbance Lower Extremity (R) : No Sensory Disturbance Upper Extremity (L) : No Sensory Disturbance Upper Extremity (R) : No Weakness Lower Extremity (L) : No Weakness Lower Extremity (R) : No Weakness Upper Extremity (L) : No Weakness Upper Extremity (R) : No Trouble with speech : No Rosalinda Garibaydebra Su [facility] 02/11/2022 8:39 EDT Heart/Vascular ROS Comments : hx of heart attack in 2012 Rosalinda Garibaydebra Blue [facility] 02/11/2022 8:39 EDT Stomach/Bowel Review of Systems Grid Constipation : No Diarrhea : No Nausea : No Vomiting : No PhoenixRebeccablackdebra Blue [facility] 02/11/2022 8:39 EDT Urinary Review of Systems Grid Nocturia : No Urinary Incontinence : No Urinary Urgency : No Phoenix Rebeccablackdebra Blue [facility] 02/11/2022 8:39 EDT Skin Review of Systems Grid Itching : No Rash : No Sores : No [place] Rebeccablackdebra Blue [facility] 02/11/2022 8:39 EDT Hematology Review of Systems Grid Bleeds Easily : Yes Blood Clots : No Low Blood Count : No Rosalinda Garibaydebra Blue [facility] 02/11/2022 8:39 EDT Sleep Review of Systems Grid Daytime Sleepiness : No Fatigue : No Insomnia : Yes Snoring : Yes PhoenixKirit [facility] 02/11/2022 8:39 EDT Hematology ROS Comments : takes ASA d/t blockages; pt goes to [facility] Sleep ROS Comments : pt uses bipap machine Kirit Garibay [facility] 02/11/2022 8:39 EDT Endocrine Review of Systems Grid High Blood Sugar : No Low Blood Sugar : No PhoenixKirit [facility] 02/11/2022 8:39 EDT Psychiatric Review of Systems Grid Anxious : No Kirit Garibay [facility] 02/11/2022 8:39 EDT Primary Pain Pain Symptoms : Yes Pain Scale Type Adult : 0-10 Pain scale Primary Pain Intensity : 6 Additional Pain Sites : Yes Primary Pain Laterality : Bilateral Primary Pain Quality : Aching Primary Pain Location : Lower back [1] Physical Exam Vitals and Measurements HR: 61 RR: 16 BP: 128/78(Left Arm) SpO2: 96% HT: 167.6 cm WT: 138.9 kg BMI: 49.45 Oxygen Therapy: Room air Primary Pain Intensity: 6 (02/11/22 08:39:00) General Appearance: Alert no distress, morbidly obese BMI of 49 HEENT : Normocephalic atraumatic Cardiac: Regular rate and rhythm. no peripheral edema Lungs: Clear throughout to auscultation, normal depth and rate Abdomen: Soft nontender, nondistended, normal active bowel sounds Musculoskeletal: No calf pain to compression, functional ROM of cervical spine and upper extremity joints. Normal hip knee and ankle motion. 2+ distal pulses. Patient is able to extend lumbar spine past neutral but combined with left sidebending causes a sharper pain that radiates into the left leg. There is no palpable instability though body habitus limits sensitivity of exam. Neurological: Alert, cognition good speech fluent. Normal upper extremity sensory, motor, and reflex exam. Patient has 2+ right patellar reflex left patellar reflex bilateral Achilles reflexes unobtainable. Has decreased sensation to light touch left L3-4 and 5 dermatomes. Otherwise intact sensation. Has subtle weakness of left great toe extension 4+/5. Otherwise normal motor power Skin: No rash Psychiatric: No significant anxiety or depression Imaging Results and Diagnostics (01/06/2022 14:44 EDT MRI Spine Lumbar w/ + w/o Contrast) ORIGINAL HISTORY: Radiculopathy, claudication, history of surgery COMPARISON: No TECHNIQUE: 1. Sagittal T1-weighted images. 2. Sagittal T2-weighted images with and without fat saturation. 3. Axial T1-weighted images. 4. Axial T2-weighted images. 5. Axial and sagittal T1-weighted images following uncomplicated administration of intravenous gadolinium contrast. FINDINGS: There are 5 lumbar type vertebral bodies for the purpose of this dictation. There is grade 1 retrolisthesis at L4-L5 and there is grade 2 anterolisthesis at L5-S1. There is a left hemilaminectomy and partial facetectomy at L3-L4. There are bilateral pars defects at L5. The remaining vertebral bodies are intact. There is disc desiccation and disc space narrowing, most prominently at L5-S1. The tip of the conus is at the L1-L2 level. There is no abnormal signal within the visualized spinal cord. There is no abnormal enhancement of the cord or its coverings. There is no significant stenosis. Specific findings by level: L2-L3: There is a mild posterior disc bulge. There is mild facet and mild to moderate ligamentum flavum hypertrophy. L4-L5: There is a cgbk-or-ejrbqufl posterior disc bulge with a mild superimposed central extrusion. There is mild right facet and ligamentum flavum hypertrophy. There is mild left neural foraminal narrowing. L4-L5: There is a pfiw-ks-xsndyraq posterior disc bulge/pseudo bulge. There is mild facet hypertrophy. L5-S1: There is a large posterior disc bulge/pseudo bulge. There is severe neural foraminal narrowing on both sides. IMPRESSION: Grade 2 anterolisthesis at L5-S1 and grade 1 retrolisthesis at L4-L5, secondary to bilateral pars defects and subluxation. There is no stenosis at either level, but there is severe neural foraminal narrowing on both sides at L5-S1. Milder degenerative changes at the remaining levels with a superimposed left hemilaminectomy and partial facetectomy at L3-L4. No stenosis at the remaining levels. There is mild neural foraminal narrowing at L4-L5. 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 Diabetes: Mother. Heart disease: Mother and Father. Hypertension: Mother. Stroke: Father. Assessment/Plan 1. Lumbar postlaminectomy syndrome History of remote laminectomy at left L3-4 done about 20 years ago does have epidural scarring at that level. Chronic left lumbar polyradiculopathy based on EMG findings as well as physical exam. Ordered: Ambulatory Office Communication Order PM Inj Spine L/S With Imaging [id number] XR Spine Lumbar AP/LAT/FLEX/EXT 2. Spondylolisthesis of lumbar region Grade 1 L4-5 spondylolisthesis grade 2 L5-S1 based on MRI report. To evaluate for any segmental instability we will obtain dynamic x-rays of lumbar spine flexion-extension views order given today. Ordered: Ambulatory Office Communication Order PM Inj Spine L/S With Imaging [id number] XR Spine Lumbar AP/LAT/FLEX/EXT 3. Lumbar stenosis with neurogenic claudication Patient does have radiculopathy pain left leg. I talked to him about epidural steroid injection versus nerve block as he has history of L3-4 laminectomy would recommend a left paramedian epidural steroid injection at the left L2-3 level. Patient does take a baby aspirin recommended by [facility] so we will petition them for permission for him to hold aspirin for 7 days before procedure. Additional preprocedural instructions issued and reviewed with him. Also this needs to be approved byinsurance though he has completed 2 months of physical therapy has had appropriate diagnostic studies so I suspect they will approve an epidural steroid injection but we will call him with exact appoi ntment later in about 4 weeks. Likely a 20-gauge 6 inch Touhy needle will be needed regarding body habitus. Ordered: Ambulatory Office Communication Order PM Inj Spine L/S With Imaging [id number] XR Spine Lumbar AP/LAT/FLEX/EXT 4. Morbid obesity Ordered: Ambulatory Office Communication Order PM Inj Spine L/S With Imaging [id number] XR Spine Lumbar AP/LAT/FLEX/EXT 5. Coronary artery disease Unclear cardiac history. Says he does not have coronary disease but does take an antiplatelet drug.Will simply ask [place] [facility] if he can stop aspirin for 7 days before procedure. Ordered: PM Inj Spine L/S With Imaging [id number] XR Spine Lumbar AP/LAT/FLEX/EXT 6. Lumbar radiculopathy Problem List/Past Medical History Ongoing Actinic keratoses At low risk for fall BMI 50.0-59.9, adult CAD - Coronary artery disease Coronary artery disease DDD (degenerative disc disease), lumbar Depression screen Encounter for well adult exam with abnormal findings Gout History of bilevel positive airway pressure (BiPAP) therapy HLD - Hyperlipidemia Hypersomnolence Hypertension Immunization due Immunization refused Lumbar postlaminectomy syndrome Lumbar radiculopathy Lumbar stenosis with neurogenic claudication Morbid obesity Need for hepatitis C screening test Nephrolithiasis Neurogenic claudication [place] (myocardial infarction) Osteoarthritis Previous back surgery PSA elevation Screen for colon cancer Screening for prostate cancer Severe obstructive sleep apnea Spondylolisthesis of lumbar region Historical No qualifying data Procedure/Surgical History Left knee: 01/23/15 Left shoulder: 08/22/13 Hernia: 04/2009 Right shoulder: 02/19/09 Back Allergies rosuvastatin (severe myalgias) Betaxolol Hydrochloride (Low heart rate) CloNIDine HCl (Unknown) lisinopril [1] [1] Specialty Office Visit Note; RICKEY HUNG MD 02/11/2022 09:40 EDT Digitally Signed by RICKEY HUNG MD on 04/06/2022 07:55 AM [facility][1] Pain [id number] Evaluation + Plan note Future Scheduled Tests Laboratory* Uric Acid 04/23/21 * Complete Blood Count 04/23/21 * Complete Metabolic Panel 04/23/21 [facility] Discharge summary Author Dr. Singh [facility] October 16, 2022 8:00am Note Date/Time October 16, 2022 6:52 am [facility] Medical Records Department [address] [place] [address] Emergency Department Summary 10/16/22 MR#: [id number] Acct: [id number] Name: KRYSTYNA PADGETT Rep #:[id number] : [id number] 67 From: Aditya Singh MD PCP: Dr. Manasa Zendejas, DO Status:REG ER Location: ED HPI HPI - GI History of Present Illness Chief Complaint: Abd Pain Informant: patient Abdominal Pain/Flank Pain Onset: Days (1-2) Context: Gradual Onset Timing: Continuous and Waxes and wanes Quality: Aching Location: Right Flank Current Severity: Mild Maximum Severity: Moderate Worsened by: Nothing Relieved by: Nothing Nausea/Vomiting/Emesis GI Symptom: Negative for Nausea or Vomiting Diarrhea/Melena/Hematochezia GI Symptom: Negative for Diarrhea, Melena or Hematochezia Associated Symptoms Associated Symptoms: Negative for Dysuria, Frequency, Hematuria or Urgency Narrative Narrative: Patient having gradual onset of colicky pain in the right flank. He states he mostly feels it in the right lower quadrant, occasionally in the back. The lasttime he had this, he was diagnosed with a kidney infection last year. He stateshe has had kidney stones before, and the pain is usually much more severe than it has been in the last day or 2 with this episode. He denies any recent injury. No fevers, chills, nausea, vomiting, urinary symptoms. Had a herniorrhaphy in his abdomen no other surgeries, and it was not recent. [facility] Medical History Atherosclerotic heart disease of [place] coronary artery without angina pectoris Bilateral kidney stones Dyspnea Essential hypertension HLD (hyperlipidemia) Hydronephrosis Hypertension Obesity PVCs (premature ventricular contractions) Sinus bradycardia Home Medications aspirin 81 mg tablet,delayed release 81 mg PO DAILY 11/18/15 [History Last Taken 02/25/17] allopurinol 100 mg tablet 100 mg PO BID 05/20/20 [History Last Taken Unknown] ezetimibe 10 mg tablet (Zetia) 10 mg PO DAILY #90 tabs 09/29/21 [Rx Last Taken Unknown] potassium citrate 10 mEq (1,080 mg) tablet,extended release 10 meq PO BID 01/27/22 [History Last Taken Unknown] amlodipine 5 mg tablet 5 mg PO DAILY blood pressure #90 tabs 03/04/22 [Rx Last Taken Unknown] spironolactone 25 mg-hydrochlorothiazide 25 mg tablet 1 tab PO DAILY htn #90 tabs 03/04/22 [Rx Last Taken Unknown] apixaban 5 mg tablet (Eliquis) 5 mg PO BID #180 tabs 06/22/22 [Rx Last Taken Unknown] nitroglycerin 0.4 mg sublingual tablet 0.4 mg sublingual Q5M PRN 09/12/22 [History Last Taken Unknown] Allergy/AdvReac Type Severity Reaction Status Date / Time VICKIE Inhibitors Allergy Severe Angioedema Verified 09/12/22 10:08 Beta-Blockers Allergy Intermediate HEART RATE Verified 09/12/22 10:08 (Beta-Adrenergic Bloc DROPS VERY LOW clonidine Allergy Other Verified 09/12/22 10:08 lisinopril Allergy Angioedema Verified 09/12/22 10:08 simvastatin AdvReac Severe myalgia Verified 09/12/22 10:08 rosuvastatin AdvReac Intermediate Myalgia Verified 09/12/22 10:08 Family History Mother CAD (coronary artery disease) CHF, stent CHF (congestive heart failure) Father Valvular disease CHF (congestive heart failure) Surgical History History of arthroscopy of left knee History of back surgery History of left heart catheterization (~11/18/15) History of left knee surgery History of repair of left rotator cuff History of shoulder surgery Hx of hernia repair Social History Smoking Status: Former smoker alcohol intake: current ROS ROS ED Constitutional Constitutional ED: Denies chills or fever(s) Eyes Eyes: Denies change in vision or diplopia ENT ENT ED: Denies rhinorrhea or sore throat Cardiovascular Cardiovascular: Denies chest pain or palpitations Respiratory/Chest Respiratory/Chest: Denies cough or dyspnea Gastrointestinal Gastrointestinal: Reports abdominal pain; Denies diarrhea, nausea or vomiting Genitourinary Genitourinary ED: Reports flank pain and low back pain; Denies dysuria or hematuria Musculoskeletal Musculoskeletal: Denies back pain or neck pain Integumentary Denies abscess or rash Neurologic Neurologic: Denies headache(s), paresthesias or weakness Psychiatric Psychiatric: Denies anxiety or suicidal thoughts EXAM Physical Exam Const Vital Signs: 10/16/22 06:37 Temperature 98.0 F Temperature Source Oral Pulse Rate 72 Respiratory Rate 18 Blood Pressure 129/68 H Blood Pressure Mean 88 Pulse Ox 97 Oxygen Delivery Method Room Air Positive well nourished and well developed Constitutional Narrative: Well-appearing normal gait General Appearance ED: well developed and NAD HEENT Reports moist mucous membranes normocephalic and atraumatic Eyes PERRL and EOMs intact bilaterally Neck full ROM and supple Resp normal respiratory effort and clear to auscultation bilaterally Cardio regular rate, regular rhythm and no murmurs GI non-tender and non-distended Auscultation: normoactive bowel sounds Palpation: soft Back/Spine General Back: CVA tenderness right and other FROM Extremity normal to inspection General Extremety ED: Negative for edema, pulses abnormal or tenderness General Extremity: Negative for edema or pulses abnormal Neuro oriented x3, CN's II-XII intact bilaterally and no sensory deficits noted Sensorium / Orientation: awake and alert Motor Exam: strength 5/5 throughout Skin no rashes or lesions noted and no wounds MDM MDM MDM Narrative Medical decision making narrative: Patient is well-appearing benign exam and normal vital signs. Differential includes pyelonephritis as well as ureterolithiasis/renal colic, less likely to be appendicitis since he is nontender in his abdomen. Urinalysis, labs, CT obtained. He declines analgesics at this time. The labs are normal, his urine does not appear infected. Since there is a small amount of leukocyte esterase, and given his history, I am sending this for a culture but I do not think he needs to be treated empirically without having any urinary symptoms. I reviewedhis CT images and the report I agree with the radiologist's interpretation. Thefact that his bladder is tending toward a fat-containing inguinal hernia is interesting but I do not think it necessarily is causing his symptoms, nor does anything appear acute there. He does not have any tenderness in this region. Idiscussed this with the patient close a patient follow-up advised, also the differential is a stone that he had but recently passed and is having some residual pain that should resolve on its own. Lab Data Attestation: I reviewed the patient's lab results. Labs: Laboratory Results - last 24 hr 10/16/22 10/16/22 10/16/22 06:35 07:04 07:04 WBC 5.6 RBC 4.50 L Hgb 13.4 Hct 41.4 MCV 92.0 MCH 29.8 MCHC 32.4 RDW Std Deviation 48.7 H RDW Coeff of Sai 14.4 Plt Count 163 MPV 11.7 Immature Gran % (Auto) 0.400 Neut % (Auto) 74.0 H Lymph % (Auto) 14.9 L [place] % (Auto) 8.9 Eos % (Auto) 1.6 Baso % (Auto) 0.2 Absolute Neuts (auto) 4.2 Absolute Lymphs (auto) 0.84 Nucleated RBC % 0 Sodium 138 Potassium 3.5 Chloride 106 Carbon Dioxide 29.0 Anion Gap 3 L BUN 24 H Creatinine 0.89 Estim Creat Clear Calc 73.68 Est GFR (MDRD) Af Amer 110 Est GFR (MDRD) Non-Af 91 BUN/Creatinine Ratio 27.1 H Glucose 117 H Calcium 8.6 Urine Color Yellow Urine Clarity Clear Urine pH 5.0 Ur Specific [place] 1.020 Urine Protein 15 H Urine Glucose (UA) Normal Urine Ketones Negative Urine Occult Blood 50 H Urine Nitrite Negative Urine Bilirubin Negative Urine Urobilinogen Normal Ur Leukocyte Esterase 25 H Urine RBC 0 SEEN Urine WBC 0-5 SEEN Ur Squamous Epith Cells 0 SEEN Urine Bacteria 0 SEEN Urine Mucus 0 SEEN Radiography Diagnostic Testing: Clinical Impression(s) from Imaging Studies Abdomen/Pelvis CT 10/16/22 06:48 IMPRESSION: 1. No nephrolithiasis or obstructive uropathy. 2. Tenting of urinary bladder towards right inguinal fat hernia, possibly symptomatic. Follow-up as clinically warranted. 3. Small pleural-based nodular opacity within right lung base likely benign scarring or mild residual atelectasis. Small pulmonary neoplasm also the differential. Consider follow-up CT in 3-6 months to reassess. 4. Other nonurgent findings within body of report. Electronically Signed: Caleb Forbes MD at 7:39 EDT , Discharge Plan Triage Chief Complaint: Abd Pain ED Provider: Aditya Singh Dx/Rx/DC Orders Clinical Impression: Acute right flank pain Instructions: ED Flank Pain, Uncertain Cause Prescriptions: No Action allopurinol 100 mg tablet 100 mg PO BID potassium citrate 10 mEq (1,080 mg) tablet extended release 10 meq PO BID ezetimibe [Zetia] 10 mg tablet 10 mg PO DAILY Qty: 90 3RF Hold Instructions: Blisters nitroglycerin 0.4 mg tablet, sublingual 0.4 mg sublingual Q5M PRN Rx Instructions: do not exceed 3 doses per episode aspirin 81 MG tablet,delayed release (DR/EC) 81 mg PO DAILY amlodipine 5 mg tablet 5 mg PO DAILY Qty: 90 3RF spironolacton-hydrochlorothiaz 25-25 mg tablet 1 tab PO DAILY Qty: 90 3RF Eliquis 5 mg tablet 5 mg PO BID Qty: 180 3RF Primary Care Provider: Manasa Zendejas Referrals: Manasa Zendejas, [Primary Care Provider] - 3-5 Days if not improving Disposition Disposition: Home, Self Care What to do if you have Problems For any increased pain, shortness of breath, bleeding, nausea or vomiting, chestpain, or any unexpected problems, contact your Primary Care Provider. Call [facility] ([phone]) or report to the closest Emergency Room. Call 911 if necessary. 10/16/22 0800 <Electronically signed by Aditya Singh MD> Cosigner Signature (if applicable): CC: Dr. Manasa Zendejas, ~ Signed [facility] Work Phone: Evaluation + Plan note Future Appointments Appointment Date:12/22/2021 09:30:00 AM Scheduled Provider:MANASA ZENDEJAS DO [facility] Type:PC OV Follow Up Future Scheduled Tests Laboratory* Uric Acid 04/23/21 * Complete Blood Count 04/23/21 * Complete Metabolic Panel 04/23/21 [facility][1] Pain Management Evaluation + Plan note Future Appointments Appointment Date:02/23/2022 09:00:00 AM Scheduled Provider:CALEB AJ MD Location:[facility] Appointment Type:NS SUPERVISOR RESIDENTIAL Future Scheduled Tests Laboratory* Uric Acid 04/23/21 * Complete Blood Count 04/23/21 * Complete Metabolic Panel 04/23/21 [facility][1] Pain Management Evaluation + Plan note Future Appointments Appointment Date:03/16/2022 10:00:00 AM Scheduled [facility]PM Inj Spine L/S With Imaging Future Scheduled Tests Laboratory* Uric Acid 04/23/21 * Complete Blood Count 04/23/21 * Complete Metabolic Panel 04/23/21 [facility] Evaluation + Plan note Future Appointments Appointment Date:05/27/2022 07:00:00 AM Scheduled Provider:RICKEY HUNG MD Location:PM Office Appointment Type:PM OV Future Scheduled Tests Laboratory* Uric Acid 04/23/21 * Complete Blood Count 04/23/21 * Complete Metabolic Panel 04/23/21 [facility][1] Pain Management Evaluation + Plan note Future Appointments Appointment Date:11/16/2022 09:30:00 AM Scheduled Provider:MANASA ZENDEJAS DO Location[facility] Appointment Type:PC OV Future Scheduled Tests Radiology* NM Myocardial Spect Rest/Stress 05/19/22 [facility][1] Pain Management Evaluation + Plan note Future Appointments Appointment Date:10/21/2022 08:00:00 AM Scheduled Provider: Location:Heart Lab Appointment Type:EP Ablation RF-CARTO Appointment Date:11/16/2022 09:30:00 AM Scheduled Provider:MANASA ZENDEJAS DO Location:[facility] Appointment Type:PC OV Appointment Date:11/25/2022 12:00:00 PM Scheduled Provider:RICKEY HUNG MD Location:PM Office Appointment Type:PM OV Appointment Date:12/21/2022 11:45:00 AM Scheduled Provider: Location:[facility] Appointment Type:CV OV [facility][1] Pain Management Evaluation + Plan note Future Appointments Appointment Date:11/10/2022 09:00:00 AM Scheduled Provider: Location:Heart Lab Appointment Type:EP Ablation RF-CARTO Appointment Date:11/16/2022 09:30:00 AM Scheduled Provider:MANASA ZENDEJAS DO Location:[facility] Appointment Type:PC OV Appointment Date:11/25/2022 12:00:00 PM Scheduled Provider:RICKEY HUNG MD Location:PM Office Appointment Type:PM OV Appointment Date:12/21/2022 11:45:00 AM Scheduled Provider: Location:[facility] Appointment Type:CV OV Appointment Date:01/13/2023 11:15:00 AM Scheduled Provider: Location:[facility] Appointment Type:CV OV [facility] Evaluation + Plan note Future Appointments Appointment Date:02/24/2023 10:30:00 AM Scheduled Provider: Location:[facility] Appointment Type:CT Chest w/ Contrast Appointment Date:03/15/2023 08:30:00 AM Scheduled Provider: Location:[facility] Management- [place] Appointment Type:PM Inj Spine L/S With Imaging Appointment Date:08/11/2023 10:00:00 AM Scheduled Provider:MANASA ZENDEJAS DO Location:[facility] Appointment Type:PC OV Appointment Date:01/15/2024 10:30:00 AM Scheduled Provider: Location:[facility] Appointment Type:CV OV Future Scheduled Tests Laboratory* Prostate Specific Antigen 02/08/23 * Uric Acid 02/08/23 * A1C Hemoglobin 02/08/23 * Complete Blood Count 02/08/23 * Lipid Profile 02/08/23 * Hepatitis C Antibody IgG 02/08/23 * Albumin/Creatinine Ratio, Random Urine 02/08/23 * Complete Metabolic Panel 02/08/23 Radiology* CT Thorax w/ Contrast 02/24/23 [facility][1] Pain Management Evaluation + Plan note Future Appointments Appointment Date:03/15/2023 08:30:00 AM Scheduled Provider: Location:[facility]- [place] Appointment Type:PM Inj Spine L/S With Imaging Appointment Date:08/11/2023 10:00:00 AM Scheduled Provider:MANASA ZENDEJAS DO Location:[facility] Appointment Type:PC OV Appointment Date:01/15/2024 10:30:00 AM Scheduled Provider: Location:[facility] Appointment Type:CV OV Future Scheduled Tests Laboratory* Prostate Specific Antigen 02/08/23 * Uric Acid 02/08/23 * A1C Hemoglobin 02/08/23 * Complete Blood Count 02/08/23 * Lipid Profile 02/08/23 * Hepatitis C Antibody IgG 02/08/23 * Albumin/Creatinine Ratio, Random Urine 02/08/23 * Complete Metabolic Panel 02/08/23 [facility] Evaluation + Plan note Future Appointments Appointment Date:06/13/2023 09:00:00 AM Scheduled Provider:GOKUL JANG Location:PM Office Appointment Type:PM OV [facility] Appointment Date:08/11/2023 10:00:00 AM Scheduled Provider:MANASA ZENDEJAS DO Location:[facility] Appointment Type:PC OV Appointment Date:01/15/2024 10:30:00 AM Scheduled Provider: Location:[facility] Appointment Type:CV OV Future Scheduled Tests Laboratory* Prostate Specific Antigen 02/08/23 * Uric Acid 02/08/23 * A1C Hemoglobin 02/08/23 * Complete Blood Count 02/08/23 * Lipid Profile 02/08/23 * Hepatitis C Antibody IgG 02/08/23 * Albumin/Creatinine Ratio, Random Urine 02/08/23 * Complete Metabolic Panel 02/08/23 Radiology* CT Thorax w/o Contrast 07/26/23 [facility] Evaluation + Plan note Future Appointments Appointment Date:07/27/2023 09:30:00 AM Scheduled Provider: Location:[facility] [place] Appointment Type:PM Inj Spine L/S With Imaging Appointment Date:08/11/2023 10:00:00 AM Scheduled Provider:MANASA ZENDEJAS DO Location:[facility] Appointment Type:PC OV Appointment Date:01/15/2024 10:30:00 AM Scheduled Provider: Location:[facility] Appointment Type:CV OV Future Scheduled Tests Laboratory* Prostate Specific Antigen 02/08/23 * Uric Acid 02/08/23 * A1C Hemoglobin 02/08/23 * Complete Blood Count 02/08/23 * Lipid Profile 02/08/23 * Hepatitis C Antibody IgG 02/08/23 * Albumin/Creatinine Ratio, Random Urine 02/08/23 * Complete Metabolic Panel 02/08/23 Radiology* CT Thorax w/o Contrast 07/26/23 [facility] Evaluation + Plan note Future Appointments Appointment Date:08/11/2023 10:00:00 AM Scheduled Provider:MANASA ZENDEJAS DO Location:[facility] Appointment Type:PC OV Appointment Date:09/25/2023 07:20:00 AM Scheduled Provider:RICKEY HUNG MD Location:PM Office Appointment Type:PM OV Appointment Date:01/15/2024 10:30:00 AM Scheduled Provider: Location:[facility] Appointment Type:CV OV Future Scheduled Tests Laboratory* Prostate Specific Antigen 02/08/23 * Uric Acid 02/08/23 * A1C Hemoglobin 02/08/23 * Complete Blood Count 02/08/23 * Lipid Profile 02/08/23 * Hepatitis C Antibody IgG 02/08/23 * Albumin/Creatinine Ratio, Random Urine 02/08/23 * Complete Metabolic Panel 02/08/23 Radiology* CT Thorax w/o Contrast 07/26/23 [facility] Evaluation + Plan note Future Appointments Appointment Date:09/25/2023 07:20:00 AM Scheduled Provider:RICKEY HUNG MD Location:PM Office Appointment Type:PM OV Appointment Date:01/15/2024 10:30:00 AM Scheduled Provider: [facility] Appointment Type:CV OV Appointment Date:02/09/2024 08:00:00 AM Scheduled Provider:MANASA ZENDEJAS DO Location:[facility] Appointment Type: Wellness Medicare Future Scheduled Tests Laboratory* Prostate Specific Antigen 02/08/23 * Uric Acid 02/08/23 * A1C Hemoglobin 02/08/23 * Complete Blood Count 02/08/23 * Lipid Profile 02/08/23 * Hepatitis C Antibody IgG 02/08/23 * Albumin/Creatinine Ratio, Random Urine 02/08/23 * Complete Metabolic Panel 02/08/23 [facility] Evaluation + Plan note Future Appointments Appointment Date:12/26/2023 11:30:00 AM Scheduled Provider:RICKEY HUNG MD Location:PM Office Appointment Type:PM OV Appointment Date:01/15/2024 10:30:00 AM Scheduled Provider: Location:[facility] Appointment Type:CV OV Appointment Date:02/09/2024 09:00:00 AM Scheduled Provider:MANASA ZENDEJAS DO Location:[facility] Appointment Type:PC Wellness Medicare Future Scheduled Tests Laboratory* Prostate Specific Antigen 02/08/23 * Uric Acid 02/08/23 * A1C Hemoglobin 02/08/23 * Complete Blood Count 02/08/23 * Lipid Profile 02/08/23 * Hepatitis C Antibody IgG 02/08/23 * Albumin/Creatinine Ratio, Random Urine 02/08/23 * Complete Metabolic Panel 02/08/23 Radiology* CT Angiography Chest w/ Contrast 08/16/24 [facility] Evaluation + Plan note Future Appointments Appointment Date:02/09/2024 09:00:00 AM Scheduled Provider:MANASA ZENDEJAS DO Location:[facility] Appointment Type: Wellness Medicare Appointment Date:04/29/2024 11:30:00 AM Scheduled Provider:RICKEY HUNG MD Location:PM Office Appointment Type:PM OV Appointment Date:01/13/2025 10:15:00 AM Scheduled Provider: [facility] Appointment Type:CV OV Future Scheduled Tests Laboratory* Prostate Specific Antigen 02/08/23 * Uric Acid 02/08/23 * A1C Hemoglobin 02/08/23 * Complete Blood Count 02/08/23 * Lipid Profile 02/08/23 * Hepatitis C Antibody IgG 02/08/23 * Albumin/Creatinine Ratio, Random Urine 02/08/23 * Complete Metabolic Panel 02/08/23 Radiology* CT Angiography Chest w/ Contrast 08/16/24 [facility] Evaluation + Plan note Future Appointments Appointment Date:08/14/2024 10:00:00 AM Scheduled Provider:MANASA ZENDEJAS DO Location:[facility] Appointment Type:PC OV Appointment Date:01/13/2025 10:15:00 AM Scheduled Provider:MIRI OLIVAREZ Location:[facility] Appointment Type:CV OV Future Scheduled Tests Laboratory* Prostate Specific Antigen 02/09/24 * Uric Acid 02/09/24 * A1C Hemoglobin 02/09/24 * Complete Blood Count 02/09/24 * Lipid Profile 02/09/24 * Hepatitis C Antibody IgG 02/09/24 * Albumin/Creatinine Ratio, Random Urine 02/09/24 * Complete Metabolic Panel 02/09/24 Radiology* CT Angiography Chest w/ Contrast 08/16/24 [facility][1] Pain Management Evaluation + Plan note Future Appointments Appointment Date:08/14/2024 10:00:00 AM Scheduled Provider:MANASA ZENDEJAS DO Location:[facility] Appointment Type:PC OV Appointment Date:09/11/2024 08:15:00 AM Scheduled Provider:ADOLFO SANCHES Location:[facility] Office Appointment Type:PM OV WJW Appointment Date:01/13/2025 10:15:00 AM Scheduled Provider:MIRI OLIVAREZ Location:[facility] Appointment Type:CV OV Future Scheduled Tests Laboratory* Prostate Specific Antigen 82 * Uric Acid 2 * A1C Hemoglobin 02/09/24 * Complete Blood Count 02/09/24 * Lipid Profile 02/09/24 * Hepatitis C Antibody IgG 02/09/24 * Albumin/Creatinine Ratio, Random Urine 02/09/24 * Complete Metabolic Panel 02/09/24 Radiology* CT Angiography Chest w/ Contrast 08/16/24 [facility] Evaluation + Plan note Future Appointments Appointment Date:09/11/2024 08:15:00 AM Scheduled Provider:ADOLFO SANCHES Location:[facility] Office Appointment Type:PM OV WJW Appointment Date:01/13/2025 10:15:00 AM Scheduled Provider:MIRI OLIVAREZ Location:[facility] Appointment Type:CV OV Appointment Date:02/12/2025 08:30:00 AM Scheduled Provider:MANASA ZENDEJAS DO Location:[facility] Appointment Type:PC Wellness Medicare Future Scheduled Tests Laboratory* Albumin/Creatinine Ratio, Random Urine 08/14/24 Radiology* CT Angiography Chest w/ Contrast 08/16/24 [facility] Evaluation + Plan note Future Appointments Appointment Date:11/07/2024 10:30:00 AM Scheduled Provider:JESUS LAZAR Location:[facility] Office Appointment Type:PM OV WJW Appointment Date:01/13/2025 10:15:00 AM Scheduled Provider:MIRI OLIVAREZ [facility] Appointment Type:CV OV Appointment Date:02/12/2025 08:30:00 AM Scheduled Provider:MANASA ZENDEJAS DO Location:[facility] Appointment Type:PC Wellness Medicare Future Scheduled Tests Laboratory* Albumin/Creatinine Ratio, Random Urine 08/14/24 Radiology* CT Angiography Chest w/ Contrast 08/16/24 [facility][1] Pain Management Evaluation + Plan note Future Appointments Appointment Date:11/20/2024 10:30:00 AM Scheduled Provider:MANASA ZENDEJAS DO Location:[facility] Appointment Type:PC OV Appointment Date:01/13/2025 10:15:00 AM Scheduled Provider:MIRI OLIVAREZ Location:[facility] Appointment Type:CV OV Appointment Date:02/12/2025 08:30:00 AM Scheduled Provider:MANASA ZENDEJAS DO Location:[facility] Appointment Type:PC Wellness Medicare Future Scheduled Tests Laboratory* Albumin/Creatinine Ratio, Random Urine 08/14/24 [facility][1] Pain Management Evaluation + Plan note Future Appointments Appointment Date:01/13/2025 10:15:00 AM Scheduled Provider:MIRI OLIVAREZ Location:[facility] Appointment Type:CV OV Appointment Date:02/12/2025 08:30:00 AM Scheduled Provider:MANASA ZENDEJAS DO Location:[facility] Appointment Type:PC Wellness Medicare Appointment Date:03/17/2025 11:50:00 AM Scheduled Provider:RICKEY HUNG MD Location:PM Office Appointment Type:PM OV Future Scheduled Tests Laboratory* Albumin/Creatinine Ratio, Random Urine 08/14/24 [facility] Evaluation note* Diagnosis Onset Date Resolution Status MARIELENA (obstructive sleep apnea) acute Obesity chronic MARIELENA (obstructive sleep apnea) acute Obesity chronic [facility] Work Phone: Evaluation note* Diagnosis Onset Date Resolution Status MARIELENA (obstructive sleep apnea) acute Obesity chronic Dyspnea acute Atherosclerotic heart diseas e of [place] coronary artery without angina pectoris chronic HLD (hyperlipidemia) chronic Hypertension chronic PVCs (premature ventricular contractions) chronic [facility] Work Phone: Evaluation note* Diagnosis Onset Date Resolution Status Atrial fibrillation acute Atherosclerotic heart diseas e of [place] coronary artery without angina pectoris chronic Essential hypertension chron ic Fatigue chronic HLD (hyperlipidemia) chronic PVCs (premature ventricular contractions) chronic Sinus bradycardia chronic Atrial fibrillation acute Atherosclerotic heart diseas e of [place] coronary artery without angina pectoris chronic Essential hypertension chron ic Fatigue chronic HLD (hyperlipidemia) chronic PVCs (premature ventricular contractions) chronic Sinus bradycardia chronic [facility] Work Phone: Evaluation note* Diagnosis Onset Date Resolution Status Atherosclerotic heart diseas e of [place] coronary artery without angina pectoris chronic Essential hypertension chron ic Fatigue chronic HLD (hyperlipidemia) chronic PVCs (premature ventricular contractions) chronic Sinus bradycardia chronic Atrial fibrillation resolved [facility] Work Phone: Hospital course Narrative No data available for this section [facility] Hospital Discharge instructions No data available for this section [facility][1] Pain Management Hospital Discharge instructions Additional Instructions Please return to the ER if he have any further concerns or worsening of symptoms [facility] Work Phone: Note* Holger Madison RN: SIGN, VERIFY Event Display: Ablation RF-CARTO - CV [facility] Notq* Darniel Bradley Tech Ana E: PERFORM Event Display: Consent to Procedure Scanned Authored Date: [id number] [facility][1] Pain Management progress note No data available for this section [facility][1] Pain Management reason for referral (narrative)No reason for referral [facility] Work [facility]: Chief Complaint and Reason for Visit Chief Complaint 2 M FU 3 M FU CHEST PAIN Reason for Visit MARIELENA (obstructive sle ep apnea) Obesity MARIELENA (obstructive sleep apnea) Obesity Chief Complaint 3 M FU CHEST PAIN req. sooner appt/ CP E ORDERS CP, HX CAD (NORMALLY SEES MOODISPAW) CP, HX CAD (NORMALLY SEES MOODISPAW) DYSPNEA Reason for Visit MARIELENA (obstructive sle ep apnea) Obesity Dyspnea Atherosclerotic heart disease of [place] coronary artery without angina pectoris HLD (hyperlipidemia) Hypertension PVCs (premature ventricular contractions) Chief Complaint 30 DAY MONITOR Amb Documentation 1 Y FU EKG per PFM 6 wk FU E ORDERS back and abd pain Reason for Visit Atrial fibrillation Atherosclerotic heart disease of [place] coronary artery without angina pectoris Essential hypertension Fatigue HLD (hyperlipidemia) PVCs (premature ventricular contractions) Sinus bradycardia Atrial fibrillation Atherosclerotic heart disease of [place] coronary artery without angina pectoris Essential hypertension Fatigue HLD (hyperlipidemia) PVCs (premature ventricular contractions) Sinus bradycardia Chief Complaint 4-6 MO F/U Amb Documentation Reason for Visit Atherosclerotic hear t disease of [place] coronary artery without angina pectoris Essential hypertension Fatigue HLD (hyperlipidemia) PVCs (premature ventricular contractions) Sinus bradycardia Atrial fibrillation Chief Complaint Admit Date 5 m fu June 21, 2024 11:12am left foot pain July 02, 2024 9:57am Discuss CT October 07, 2024 8:0 2am Reason for Visit Admit Date Lung nodule, solitary June 21 11:12am Morbid obesity June 21, 2024 11:12am MARIELENA (obstructive sleep apnea) June 092023 11:12am Lung nodule, solitary October 07, 2024 8 :02am Morbid obesity October 07, 2024 8:0 2am Chief Complaint Admit Date left foot pain July 02, 2024 9:57am Discuss CT October 07, 2024 8:0 2am LUNG October 15, 2024 10:0 7am Reason for Visit Admit Date Lung nodule, solitary October 07, 2024 8 :02am Morbid obesity October 07, 2024 8:0 2am Chief Complaint Admit Date Discuss CT October 07, 2024 8:0 2am LUNG October 15, 2024 10:0 7am 2 wk fu October 25, 2024 7:3 4am R06.00 - Dyspnea, unspecified October 6:21am Reason for Visit Admit Date Lung nodule, solitary October 07, 2024 8 :02am Morbid obesity October 07, 2024 8:0 2am Dyspnea October 25, 2024 7:3 4am Lung nodule, solitary October 25, 2024 7 :34am Morbid obesity October 25, 2024 7:3 4am MARIELENA (obstructive sleep apnea) October 7:34am Family History No Family History Records Found Relationship Condition Age at Onset Recorded Date/T angel luis mother Coronary artery disease Unknown Congestive heart failure Unknown father Heart valve disease Unknown Advance Directives No Advanced Directives Records Found Advance Directive Response Recorded Date/ Time Advance Directives No August 3:00pm Living Will No May 16 10:21pm Power of Cardiovascular Invasive Specialist No May 16, 2022 10:21pm Advance Directive Response Recorded Date/ Time Advance Directives No August 4:00pm Living Will No October 16, 2022 6:39am Power of Cardiovascular Invasive Specialist No October 16 6:39am Advance Directive Response Recorded Date/ Time Living Will No October 16, 2022 6:39am Do you have a Healthcare Power of Cardiovascular Invasive Specialist? No October 16, 2022 6:39am Living Will No July 02 11:14am Do you have a Healthcare Power of Cardiovascular Invasive Specialist? No July 02, 2024 11:14am Advance Directives No August 4:00pm Advance Directive Response Recorded Date/ Time Living Will No July 02 11:14am Do you have a Healthcare Power of Cardiovascular Invasive Specialist? No July 02, 2024 11:14am Advance Directives No August 4:00pm Advance Directive Response Recorded Date/ Time Advance Directives No August 4:00pm Summary Purpose Additional Source Comments Care Team (unrecognized sect ion and content) Team Status: Active Member Role Status Dates Dr. Manasa Zendejas DO Family Provider Active Dr. Manasa Zendejas DO Primary Care Provider Active Team Status: Inactive Member Role Status Dates Dr. Manasa Zednejas DO Primary Care Provider, Referrin g Provider Active Dr. Mark Grajeda MD Attending Provider Active Team Status: Active Member Role Status Dates Dr. Manasa Zendejas DO Primary Care Provider Active Melissa Mcintosh Attending Provider Active Team Status: Inactive Member Role Status Dates Dr. Manasa Zendejas DO Primary Care Provider, Referrin g Provider Active Anna Jones SUPERVISOR RESIDENTIAL, SUPERVISOR RESIDENTIAL-C Attending Provider Active Team Status: Active Member Role Status Dates Dr. Manasa Zendejas DO Primary Care Provider Active Dr. Mark Grajeda MD Attending Provider Active Melissa Up PA, PA Referring Provider Active Team Status: Inactive Member Role Status Dates Dr. Manasa Zendejas DO Primary Care Provider Active Anan Jones SUPERVISOR RESIDENTIAL, SUPERVISOR RESIDENTIAL-C Attending Provider, Referring Pro vider Active Team Status: Inactive Member Role Status Dates Dr. Manasa Zendejas DO Primary Care Provider Active Dr. Aditya Singh MD Emergency Provider Active Team Status: Active Member Role Status Dates Dr. Manasa Zendejas DO Primary Care Provider Active Anna Jones SUPERVISOR RESIDENTIAL, SUPERVISOR RESIDENTIAL-C Attending Provider Active Team Status: Inactive Member Role Status Dates Dr. Manasa Zendejas DO Primary Care Provider Active Rocio Cruzing Attending Provider, Referring Provide r Active Team Status: Inactive Member Role Status Dates Dr. Manasa Zendejas DO Primary Care Provider Active Start: June 21, 2024 End: June 21, 2024 Dr. Manasa Zendejas DO Referring Provider Active Start: June 21, 2024 End: June 21, 2024 Cathy Ruiz SUPERVISOR RESIDENTIAL, SUPERVISOR RESIDENTIAL-C Attending Provider Active Start: June 21, 2024 End: June 21, 2024 Team Status: Inactive Member Role Status Dates Dr. Manasa Zendejas DO Primary Care Provider Active Start: July 02, 2024 End: July 02, 2024 Dr. Behzad Rivera DO Attending Provider Active Start: July 02, 2024 End: July 02, 2024 Dr. Behzad Rivera DO Emergency Provider Active Start: July 02, 2024 End: July 02, 2024 Team Status: Inactive Member Role Status Dates Dr. Manasa Zendejas DO Primary Care Provider Active Start: October 07, 2024 End: October 07, 2024 Dr. Manasa Zendejas DO Referring Provider Active Start: October 07, 2024 End: October 07, 2024 Cathy Ruiz SUPERVISOR RESIDENTIAL, SUPERVISOR RESIDENTIAL-C Attending Provider Active Start: October 07, 2024 End: October 07, 2024 Team Status: Inactive Member Role Status Dates Dr. Manasa Zendejas DO Primary Care Provider Active Start: October 07, 2024 End: October 07, 2024 Cathy Ruiz SUPERVISOR RESIDENTIAL, SUPERVISOR RESIDENTIAL-C Attending Provider Active Start: October 07, 2024 End: October 07, 2024 Cathy Ruiz SUPERVISOR RESIDENTIAL, SUPERVISOR RESIDENTIAL-C Referring Provider Active Start: October 07, 2024 End: October 07, 2024 Team Status: Active Member Role Status Dates Dr. Manasa Zendejas DO Primary Care Provider Active Team Status: Inactive Member Role Status Dates Dr. Manasa Zendejas DO Primary Care Provider Active Start: October 15, 2024 End: October 15, 2024 Cathy Ruiz SUPERVISOR RESIDENTIAL, SUPERVISOR RESIDENTIAL-C Attending Provider Active Start: October 15, 2024 End: October 15, 2024 Cathy Ruiz SUPERVISOR RESIDENTIAL, SUPERVISOR RESIDENTIAL-C Referring Provider Active Start: October 15, 2024 End: October 15, 2024 Team Status: Inactive Member Role Status Dates Dr. Manasa Zendejas DO Primary Care Provider Active Start: October 25, 2024 End: October 25, 2024 Dr. Manasa Zendejas DO Referring Provider Active Start: October 25, 2024 End: October 25, 2024 Cathy Ruiz SUPERVISOR RESIDENTIAL, SUPERVISOR RESIDENTIAL-C Attending Provider Active Start: October 25, 2024 End: October 25, 2024 Team Status: Inactive Member Role Status Dates Dr. Manasa Zendejas DO Primary Care Provider Active Start: October 30, 2024 End: October 30, 2024 Cathy Ruiz SUPERVISOR RESIDENTIAL, SUPERVISOR RESIDENTIAL-C Attending Provider Active Start: October 30, 2024 End: October 30, 2024 Cathy Ruiz SUPERVISOR RESIDENTIAL, SUPERVISOR RESIDENTIAL-C Referring Provider Active Start: October 30, 2024 End: October 30, 2024 Care Team (unrecognized sect ion and content) Personnel Name: MANASA ZENDEJAS DO Address: Address: [address] [place] [id number]- Care Team Personnel Name: MANASA ZENDEJAS DO Position: P4 Physician - Primary Care Med Service: Active Provider Member Role: Primary Care Physician Address: Address: [address] [place] [address]- Care Team Related Persons Name: ANNA PADGETT Care Team Personnel Name: MANASA ZENDEJAS DO Position: P4 Physician - Primary Care Med Service: Active Provider Member Role: Primary Care Physician Address: Address: [address] [place] [address]- Care Team Related Persons Name: ANNA PADGETT Care Team Personnel Name: MANASA ZENDEJAS DO Position: P4 Physician - Primary Care Med Service: Active Provider Member Role: Primary Care Physician Address: Address: [address] [place] [address]- Care Team Related Persons Name: ANNA PADGETT Care Team Personnel Name: MANASA ZENDEJAS DO Position: P4 Physician - Primary Care Med Service: Active Provider Member Role: Primary Care Physician Address: Address: [address] [place] [address]- Care Team Related Persons Name: ANNA PADGETT Care Team Personnel Name: MANASA ZENDEJAS DO Position: P4 Physician - Primary Care Member Role: Primary Care Physician Address: Address: [address] [place] [address]- Care Team Related Persons Name: ANNA PADGETT Goals (unrecognized section and content) Goals may be documented in a n alternate section (unrecognized sect ion and content) No Status Records FoundNo Status Records FoundNo Status Records FoundNo Status Records Found INFORMATION SOURCE (unrecogn ized section and content) DATE CREATED AUTHOR 02/01/2024 [facility] ([place]) DATE CREATED AUTHOR AUTHOR'S ORGANIZ ATION 11/24/[address] [facility] DATE CREATED AUTHOR AUTHOR'S ORGANIZ ATION 11/25/2024 [facility] DATE CREATED AUTHOR AUTHOR'S ORGANIZ ATION 12/18/2024 [facility] FOR RECORDS PERTAINING TO PATIENTS WHO ARE OR HAVE BEEN ENROLLED IN A CHEMICAL DEPENDENCY/SUBSTANCEABUSE PROGRAM, SOME INFORMATION MAY BE OMITTED. This clinical summary was aggregated from multiple sources. Caution should be exercised in using it in the provision of clinical care. This summary normalizes information from multiple sources, and as a consequence, information in this document may materially change the coding, format and clinical context of patient data. In addition, data may be omitted in some cases. CLINICAL DECISIONS SHOULD BE BASED ON THE PRIMARY CLINICAL RECORDS. [facility]. provides no warranty or guarantee of the accuracy or completeness of information in this document.
[2024-12-19 08:24] VITALS: PULSE 102; PULSE 77; PULSE 78; PULSE 80; PULSE 83; PULSE 92; PULSE 99; O2SAT 94; O2SAT 95; O2SAT 98
--- NOTE | 2024-12-23 10:20 | WT_ITS ---
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[employer]IC Assistive device None used: Pre-test Oxygen Delivery Room Air Method Pulse Ox (%) 98 Pulse Rate (60-100 77 beats/min) Dyspnea Adam Scale ( 2 0-10) Exertion Adam Scale 6 (6-20) 1st minute Oxygen Delivery Room Air Method Pulse Ox (%) 98 Pulse Rate (60-100 83 beats/min) Dyspnea Adam Scale ( 3 0-10) Number of Rests 0 Taken Reported Symptoms Increased Work of Breathing 2nd minute Oxygen Delivery Room Air Method Pulse Ox (%) 98 Pulse Rate (60-100 80 beats/min) Dyspnea Adam Scale ( 4 0-10) Number of Rests 0 Taken Reported Symptoms Increased Work of Breathing 3rd minute Oxygen Delivery Room Air Method Pulse Ox (%) 98 Pulse Rate (60-100 92 beats/min) Dyspnea Adam Scale ( 5 0-10) Number of Rests 1 Taken Reported Symptoms Increased Work of Breathing 4th minute Oxygen Delivery Room Air Method Pulse Ox (%) 95 Pulse Rate (60-100 102 H beats/min) Dyspnea Adam Scale ( 5 0-10) Number of Rests 0 Taken Reported Symptoms Increased Work of Breathing 5th minute Oxygen Delivery Room Air Method Pulse Ox (%) 94 Pulse Rate (60-100 99 beats/min) Dyspnea Adam Scale ( 5 0-10) Number of Rests 1 Taken Reported Symptoms Increased Work of Breathing 6th minute Oxygen Delivery Room Air Method Pulse Ox (%) 98 Pulse Rate (60-100 99 beats/min) Dyspnea Adam Scale ( 6 0-10) Exertion Adam Scale 6 (6-20) Number of Rests 0 Taken Reported Symptoms Increased Work of Breathing Post-test Oxygen Delivery Room Air Method Pulse Ox (%) 98 Pulse Rate (60-100 78 beats/min) Dyspnea Adam Scale ( 2 0-10) Full Laps Walked 15 Partial Lap, Number 0 of Tiles Walked Total Distance 885 Walked (ft) Interpretation Interpretation: The patient ambulated 885 feet over the course of 6 minutes beginning on room air without assistive devices. Pretesting oxygen saturation was noted to be 98% on room air. With ambulation, the ludy oxygen saturation was 94%. There was no significant exertional oxygen desaturation. Recommendations Recommendations: There is no indication for the use of supplemental oxygen at this time.
== END | disposition home or self-care (01) ==
LOC: PSN 07:49
PROVIDERS: PCP Student in an Organized Health Care Education/Training Program; Referring Provider Nurse Practitioner Acute Care; Visit Provider Nurse Practitioner Acute Care
DX: R06.00 Dyspnea, unspecified (principal)
CPT/HCPCS: 94618

== ENCOUNTER → 2025-01-06 | Outpatient (CLI) | payer MEDICARE, SELFPAY ==
--- OUTSIDE RECORDS SUMMARY | 2025-01-06 06:09 | XMS RPT_ITS | CCD ---
Author Organization [facility] Care Team Providers Care After School Caregiver Name Role Phone MANASA ZENDEJAS DO Primary Care Physician [phone] Dr. Manasa Zendejas Primary Care Provider [phone] Dr. Manasa Zendejas Referring Provider 1([facility])2014 Dr. Cale Ron Attending Provider 1([facility])82 Sara HARDING, NEONATAL PEDIATRIC NURSE-C Cathy Attending Provider [phone] Dr. Manasa Zendejas Primary Care Provider 1([facility]) Dr. Manasa Zendejas Referring Provider 1([facility])2014 Luis HARDING, NEONATAL PEDIATRIC NURSEKiet Jones Attending Provider Dr. Manasa Zendejas Other Provider Unavailable Dr. Byron Lora Attending Provider [phone]) Dr. Mark Grajeda Attending Provider [phone]) Dr. Manasa Zendejas Primary Care Provider [phone]) Dr. Mark Grajeda Attending Provider [phone] Jeovanny DORAN, PA Melissa Blue Referring Provider Melissa Mcintosh Attending Provider Unavailable Dr. Manasa Zendejas Referring Provider 1([facility])2014 Robert HARDING, NEONATAL PEDIATRIC NURSEKiet Varma Attending Provider [phone]) Dr. Manasa Zendejas Primary Care Provider [phone]) Dr. Manasa Zendejas Referring Provider 1([facility])2014 Robert NEONATAL PEDIATRIC NURSE, NEONATAL PEDIATRIC NURSE-C Anna Varma Attending Provider [phone]) GOKUL VALENZUELA Attending Unavailab le MANASA ZENDEJAS DO Primary Care Unavailable KRYSTYNA MANZANO Attending Unavailable MANASA ZENDEJAS DO Primary Care Unavailable MANASA ZENDEJAS DO Attending Unavailable HALKO DO, MANASA Primary Care Unavailable HALKO DO, MANASA Attending Unavailable HALKO DO, MANASA Primary Care Unavailable HALKO DO, MANASA Attending Unavailable HALKO DO, MANASA Primary Care Unavailable RICKEY HUNG MD Attending Unavail able HALKO DO, MANASA Primary Care Unavailable SOLO IT NETWORK ARCHITECT-OFFICE CLERK ROUTINE, MARCOS Cohn Attending Unavai lable HALKO DO, MANASA Primary Care Unavailable HALKO DO, MANASA Primary Care Unavailable SUHAIL IT NETWORK ARCHITECT-NODULIZER, GOKUL Attending Unavailab RICKEY Hudson MD Attending Unavail able HALKO DO, MANASA Primary Care Unavailable RICKEY HUNG MD Attending Unavail able HALKO DO, MANASA Primary Care Unavailable SOLO IT NETWORK ARCHITECT-OFFICE CLERK ROUTINE, MARCOS Cohn Attending Zaina ZENDEJAS DO, MANASA Primary Care Unavailable Cristiana DUBOIS, Dr. Lu Primary Care Provider Dr. Manasa Zendejas DO Referring Provider Sara NEONATAL PEDIATRIC NURSE-C, Cathy Attending Provider Dr. Behzad Rivera DO Attending Provider Dr. Behzad Rivera DO Emergency Provider Sara NEONATAL PEDIATRIC NURSE-C, Cathy Referring Provider Dr. Manasa Zendejas DO Primary Care Provider Dr. Manasa Zendejas DO Referring Provider Sara NEONATAL PEDIATRIC NURSE-C, Cathy Attending Provider Cristiana DUBOIS, Dr. Lu Primary Care Provider [phone] CRISTIANA DUBOIS, MANASA Attending Unavailable HALKO DO, MANASA Primary Care Unavailable HALKO DO, MANASA Attending Unavailable HALKO DO, MANASA Primary Care Unavailable HALKO DO, MANASA Primary Care Unavailable HALKO DO, MANASA Attending Unavailable NAGI IT NETWORK ARCHITECT-NODULIZER, JESUS Attending Unavailab le HALKO DO, MANASA Primary Care Unavailable NAGI IT NETWORK ARCHITECT-NODULIZER, JESUS Attending Unavailab le HALKO DO, MANASA Primary Care Unavailable NAGI IT NETWORK ARCHITECT-NODULIZER, JESUS Attending Unavailab le HALKO DO, MANASA Primary Care Unavailable HALKO DO, MANASA Primary Care Unavailable RICKEY HUNG MD Attending Unavail able RICKEY HUNG MD Attending Unavail able HALKO DO, MANASA Primary Care Unavailable HALKO DO, MANASA Primary Care Unavailable RICKEY HUNG MD Attending Unavail able Sara NEONATAL PEDIATRIC NURSE-C, Cathy Other Provider Asaf DUBOIS, Dr. Madsen Attending Provider Kenn VEGA, Dr. Pop Attending Provider [phone] Halko, Manasa Primary Care Unavailable Luis HARDING, Karen Attending Unavailable Halko, Manasa Primary Care Unavailable KennDonn Referring Unavailable Kenn, Donn Attending Unavailable Halko, Manasa Primary Care Unavailable Ruiz, Cathy Attending Unavailable Ruiz, Cathy Referring Unavailable Halko, Manasa Primary Care Unavailable Ruiz, Cathy Referring Unavailable Cale Ron Attending Unavailable Halko, Manasa Primary Care Unavailable Sara, Cathy Consulting Unavailable Sara, Cathy Referring Unavailable Cale Ron Attending Unavailable Halko, Manasa Primary Care Unavailable Halko, Manasa Referring Unavailable Ruiz, Cathy Attending Unavailable Halko, Manasa Primary Care Unavailable Halko, Manasa Referring Unavailable Ruiz, Cathy Attending Unavailable Halko, Manasa Primary Care Unavailable Halko, Manasa Referring Unavailable Ruiz, Cathy Attending Unavailable Halko, Manasa Primary Care Unavailable Halko, Manasa Referring Unavailable Ruiz, Cathy Attending Unavailable Halko, Manasa Referring Unavailable Halko, Manasa Primary Care Unavailable Kenn, Donn Attending Unavailable Halko, Manasa Primary Care Unavailable Halko, Manasa Referring Unavailable Ruiz, Cathy Attending Unavailable Halko, Manasa Primary Care Unavailable Kenn, Donn Attending Unavailable Halko, Manasa Primary Care Unavailable Ruiz, Cathy Referring Unavailable Ruiz, Cathy Attending Unavailable Halko, Manasa Primary Care Unavailable Ruiz, Cathy Attending Unavailable Ruiz, Cathy Referring Unavailable Ruiz, Cathy Attending Unavailable Halko, Manasa Primary Care Unavailable Sara, Cathy Attending Unavailable Ruiz, Cathy Referring Unavailable Behzad Rivera Attending Unavailable Halko, Manasa Primary Care Unavailable Allergies Allergy Classification Reported Allergen(s) Allergy Type Date of Onset Reaction(s) Facility (20 sources) Betaxolol; Translations: [betaxolol] Drug Allergy Low heart rate [facility] (20 sources) cloNIDine; Translations: [clonidine] Drug Allergy 2 Unknown (qualifier value) [facility] Comment on above: heart rate low (20 sources) Lisinopril; Translations: [lisinopril] Drug Allergy 2 Angioedema (disorder) [facility] (20 sources) rosuvastatin; Translations: [rosuvastatin] Drug Allergy 2 severe myalgias, Myalgia [facility] (12 sources) Adrenergic Beta-Antagonists Allergy to substance 2 HEART RATE DROPS VERY LOW [facility] (12 sources) Angiotensin Converting Enzyme (Vickie) Inhibitors Allergy to substance [address] [facility] (12 sources) Simvastatin Drug Allergy [address] [facility] (1 source) Adrenergic Beta-Antagonists Drug allergy (disorder) 5 [facility] (1 source) Angiotensin Converting Enzyme (Vickie) Inhibitors Drug allergy (disorder) 5 [facility] (1 source) cloNIDine Drug Allergy 5 [facility] (1 source) Lisinopril Drug Allergy 5 [facility] (1 source) rosuvastatin Drug Allergy 5 [facility] (1 source) Simvastatin Drug Allergy 5 [facility] Medications Current Medications Medication Drug Class(es) Dates Sig (Normalized) Sig (Original) allopurinol 100 mg oral tablet (20 sources) Xanthine Oxidase Inhibitor Start: 05-20-2020 End: 08-07-2024 take 1 tablet by mouth twice daily Allopurinol 100 mg tablet Active 100 mg PO TWICE A DAY May 20, 2020 1:00am amoxicillin 875 mg / clavulanate 125 mg oral tablet (1 source) Penicillin-class Antibacterial Start: 08-11-2023 End: 08-21-2023 take 1 tablet by mouth every twelve hours amoxicillin-clavul anate 875 mg-125 mg oral tablet 1 tab(s), Oral, q12h, X 10 day(s), # 20 tab(s), 0 Refill(s), 08/21/23 10:40:00 AM EST, Pharmacy: [facility] #[id number], 167, cm, 08/11/23 10:08:00 EST, Height, 122.2, kg, 08/11/23 10:08:00 EST, Dosing Weight Start Date: 08/11/23 Stop Date: 08/21/23 Status: Ordered apixaban 5 mg oral tablet (20 sources) Factor Xa Inhibitor Start: 06-22-2022 take 1 tablet by mouth twice daily Apixaban (Eliquis) 5 mg tablet Active 5 mg PO TWICE A DAY June 22, 2022 1:00am diazePAM 5 mg oral tablet (1 source) Benzodiazepine Start: 01-02-2025 Diazepam 5 mg tablet Active 5 mg PO as needed for anxiety January 02, 2025 12:00am ezetimibe 10 mg oral tablet (20 sources) Dietary Cholesterol Absorption Inhibitor Start: 01-06-2021 End: 02-10-2025 take 1 tablet by mouth once daily Ezetimibe (Zetia) 10 mg tablet Active 10 mg PO DAILY September 29, 2021 11:17am furosemide 40 mg oral tablet (2 sources) Loop Diuretic Start: 12-26-2024 take 1 tablet by mouth once daily Furosemide (Lasix) 40 mg tablet Active 40 mg PO daily December 26, 2024 12:00am latanoprost 0.05 mg/ml ophthalmic solution (1 source) Prostaglandin Analog Start: 01-02-2025 Latanoprost 0.005 % drops Active [facility] OPHTHALMIC January 02, 2025 12:00am nitroglycerin 0.4 mg sublingual tablet (20 sources) Nitrate Vasodilator Start: 09-12-2022 Nitroglycerin 0.4 mg tablet, sublingual Active 0.4 mg [...] qDay, # 30 tab(s), 0 Refill(s), Pharmacy: [facility] #[id number], 167.6, cm, 11/10/22 6:22:00 EDT, Height Start [...] tablet extended release Discontinued 15 meq PO .QOTHERJune 27, 2019 1:00am August 06, 2019 10:45am Start: 06-25-2019 End: 08-06-2019 take 1 tablet by mouth twice daily potassium citrate 15 mEq oral tablet, extended release See Instructions, 1 tab(s) Oral BID, 0 Refill(s) Start Date: 06/25/19 Status: Ordered Repeat number: 1 sildenafil 25 mg oral tablet (15 sources) Phosphodiesterase 5 Inhibitor Start: 09-12-2023 Sildenafil [...] 30 tab(s), 0 Refill(s), Pharmacy: [facility] #[id number], 167, cm, 08/11/23 10:08:00 EST, Height, kg, 08/11/23 10:08:00 EST, Dosing Weight Start Date: 08/11/23 Stop Date: 09/10/23 Status: Ordered Quantity: 30.0 Unit: tab(s) Repeat number: 1 silver sulfADIAZINE 10 mg/ml topical cream (1 source) Sulfonamide Antibacterial Start: 11-20-2024 silver sulfADIAZINE 1% topical cream Apply 1 mali, Topical, BID, # 30 gram(s), 0 Refill(s), Pharmacy: [facility], Cream, 166, cm, 11/20/24 9:50:00 EDT, Height, 133.3, kg, 11/20/24 9:50:00 EDT, Dosing Weight Start Date: 11/20/24 Status: Ordered Quantity: 30.0 Unit: g Repeat number: 1 spironolactone 25 mg oral tablet (2 sources) Aldosterone Antagonist Start: 12-26-2024 take 1 tablet by mouth once daily Spironolactone 25 mg tablet Active 25 mg PO daily December 26, 2024 12:00am terbinafine hydrochloride 10 mg/ml topical cream (10 sources) Allylamine Antifungal Start: 10-07-2024 Terbinafine Hcl 1 % cream Active [facility] TOPICAL October 07, 2024 12:00am Start: 08-14-2024 End: 10-09-2024 terbinafine 1% topical cream Apply 1 mali, Topical, BID, # 30 gram(s), 1 Refill(s), Pharmacy: [facility], Cream, 168, cm, 08/14/24 9:37:00 [...] HOURS NEEDED as needed for Pain 10 December 21, 2018 12:00am December 22, 2018 12:00am December 23, 2018 12:08am Start: 12-21-2018 End: 12-23-2018 take 1 tablet by mouth every four hours as needed Hydrocodone-Acetaminophen Discontinued 1 TABLET PO EVERY 4 HOURS NEEDED 10 December 21, 2018 12:00am December 23, 2018 [...] / oxyCODONE hydrochloride 5 mg oral tablet (18 sources) Opioid Agonist Start: 07-02-2024 End: 10-07-2024 [...] 25, 2017 3:39pm November 29, 2017 3:57pm amLODIPine 5 mg oral tablet (20 sources) Dihydropyridine Calcium Channel Ke Start: 09-23-2015 End: 02-10-2025 take 1 tablet by mouth once daily Amlodipine 5 mg tablet Discontinued 5 mg PO DAILY November 29, 2019 3:34pm January 06, 2021 3:05pm Start: 09-04-2013 End: 09-23-2015 take 2 tablets [...] 19, 2013 1:00am September 04, 2013 1:11pm aspirin 81 mg delayed release oral tablet (19 sources) Platelet Aggregation Inhibitor, Nonsteroidal Anti-inflammatory Drug Start: 11-18-2015 End: 11-01-2022 take 1 tablet by mouth once daily Aspirin 81 MG tablet,delayed release (DR/EC) Discontinued 81 mg PO DAILY November 18, 2015 12:00am November 01, 2022 9:35am cephalexin 500 mg oral capsule (12 sources) Cephalosporin Antibacterial Start: 05-17-2022 End: 05-26-2022 take 1 capsule by mouth three times daily Cephalexin 500 mg capsule Discontinued 500 mg PO THREE TIMES A DAY 27 01May 17, 2022 1:00am May 26, 2022 11:31am hydroCHLOROthiazide 12.5 mg / lisinopril 20 mg oral tablet (12 sources) Thiazide Diuretic, Angiotensin Converting Enzyme Inhibitor Start: 08-19-2013 End: 09-04-2013 take 1 tablet by mouth twice daily Lisinopril/Hydroc hlorothiazide (Zestoretic 20/12.5 Tablet) 1 TABLET tablet Discontinued 1 {tbl} PO TWICE A DAY August 19, 2013 1:00am September 04, 2013 1:09pm hydroCHLOROthiazide 25 mg / spironolactone 25 mg oral tablet (20 sources) Thiazide Diuretic, Aldosterone Antagonist Start: 09-23-2015 End: 02-10-2025 take 1 tablet by mouth once daily Spironolacton-Hyd rochlorothiaz 25-25 mg tablet Discontinued 1 {tbl} PO DAILY March 04, 2022 11:21am December 26, 2024 1:54pm Start: 09-23-2015 End: 03-04-2022 take 1 tablet by mouth once daily Spironolacton-Hydrochlorothiaz Discontin ued 1 TABLET PO DAILY November 29, 2019 3:34pm January 06, 2021 3:05pm ibuprofen 600 mg oral tablet (12 sources) Nonsteroidal Anti-inflammatory Drug Start: 08-19-2013 End: 09-04-2013 take 1 tablet by mouth every eight hours as needed for pain Ibuprofen 600 MG tablet Discontinued 600 mg PO EVERY 8 HOURS NEEDED as needed for Pain August 19, 2013 1:00am September 04, 2013 1:09pm metoprolol tartrate 25 mg oral tablet (8 sources) beta-Adrenergic Ke Start: 07-18-2022 End: 07-27-2022 Metoprolol Tartrate 25 mg tablet Discontinued 12.5 mg PO DAILY July 18, 2022 1:00am July 27, 2022 3:06pm Start: 07-18-2022 End: 07-27-2022 take 12.5 mg by mouth once daily Metoprolol Tartrate Discontinued 12.5 MG PO DAILY July 18, 2022 1:00am July 27, 2022 3:06pm naproxen 500 mg oral tablet (12 sources) Nonsteroidal Anti-inflammatory Drug Start: 02-25-2017 End: 11-29-2017 take 1 tablet by mouth twice daily Naproxen 500 MG tablet Discontinued 500 mg PO TWICE A DAY February 25, 2017 12:00am November 29, 2017 3:57pm ondansetron 4 mg disintegrating oral tablet (20 sources) Serotonin-3 Receptor Antagonist Start: 12-21-2018 End: [...] 2017 3:57pm predniSONE 20 mg oral tablet (6 sources) Start: 07-02-2024 End: 10-07-2024 take 3 tablets by mouth once daily Prednisone 20 mg tablet Discontinued 60 mg PO DAILY July 02, 2024 1:00am October 07, 2024 8:13am rosuvastatin calcium 10 mg oral tablet (12 sources) HMG-CoA Reductase Inhibitor Start: 12-04-2019 End: 12-09-2020 take 1 tablet by mouth once daily Rosuvastatin (Crestor) 10 mg tablet Discontinued 10 mg PO DAILY December 04, 2019 12:00am December 09, 2020 4:11pm simvastatin 20 mg oral tablet (20 sources) HMG-CoA Reductase Inhibitor Start: 04-16-2019 End: 12-04-2019 take 1 tablet by mouth once daily Simvastatin 20 mg tablet Discontinued 20 mg PO DAILY October 23, 2019 2:02pm December 04, 2019 [...] 2:16pm tamsulosin hydrochloride 0.4 mg oral capsule (12 sources) alpha-Adrenergic Ke Start: 02-22-2017 End: 12-07-2017 take 1 capsule by mouth once daily Tamsulosin 0.4 MG capsule Discontinued 0.4 mg PO DAILY February 22, 2017 12:00am December 07, 2017 1:22pm Problems Active Problems Problem Classification Problem Date Documented Date Episodic/Chronic Abdominal pain (8 sources) Right flank pain; Translations: [Unspecified abdominal pain] 10-16-2022 Episodic Aortic; peripheral; and visceral artery aneurysms (8 sources) Aortic root dilatation 08-16-2023 Chronic Calculus of urinary tract (20 sources) Kidney stone; Translations: [Renal colic] 12-24-2019 Episodic Comment on above: uric acid stones Cardiac dysrhythmias (20 sources) Multiple premature ventricular complexes; Translations: [Ventricular premature depolarization] Onset: 5 Chronic Comment on above: S/p ablation for atr ial fibrillation and flutter on 11/10/2022 at [facility]; Cardiac dysrhythmias (20 sources) Sinus bradycardia; Translations: [Bradycardia, unspecified] 11-29-2017 Episodic Coagulation and hemorrhagic disorders (15 sources) Hypercoagulability state 02-08-2023 Chronic Coronary atherosclerosis and other heart disease (20 sources) Coronary arteriosclerosis; Translations: [Old myocardial infarction] Onset: 2 06-25-2019 Chronic Comment on above: Non obstructive CAD Disorders of lipid metabolism (20 sources) Hyperlipidemia; Translations: [Hyperlipidemia, unspecified] Onset: 5 06-25-2019 Chronic Essential hypertension (20 sources) Hypertensive disorder; Translations: [Essential (primary) hypertension] Onset: 5 06-25-2019 Chronic Glaucoma (6 sources) Glaucoma 02-09-2024 Chronic Gout and other crystal arthropathies (20 sources) Gout; Translations: [Acute gout] 12-24-2019 Chronic Hypertension with complications and secondary hypertension (17 sources) Hypertensive heart disease without congestive heart failure; Translations: [Hypertensive heart disease without heart failure] Onset: 5 11-16-2022 Chronic Immunizations and screening for infectious disease (6 sources) Patient encounter status; Translations: [Encounter for immunization] 06-21-2024 Episodic Malaise and fatigue (11 sources) Fatigue; Translations: [Other fatigue] 09-12-2022 Episodic Nonspecific chest pain (20 sources) Chest pain; Translations: [Chest pain, unspecified] 05-19-2022 Episodic Osteoarthritis (20 sources) Osteoarthritis 06-25-2019 Chronic Other acquired deformities (20 sources) Lumbar spondylolisthesis; Translations: [Spondylolisthesis, lumbar region] Onset: 3 02-11-2022 Episodic Other aftercare (6 sources) Long-term current use of anticoagulant; Translations: [terminal computer operator (current) use of anticoagulants] Onset: 3 Episodic Other aftercare (1 source) prison (current) use of anticoagulants; Translations: [terminal computer operator (current) use of anticoagulants] Onset: 5 Episodic Other and ill-defined heart disease (6 sources) Left ventricular hypertrophy 02-01-2024 Chronic Other circulatory disease (12 sources) Abnormal peripheral pulse; Translations: [Other specified symptoms and signs involving the circulatory and respiratory systems] 09-29-2021 Episodic Other circulatory disease (20 sources) H/O: atrial fibrillation; Translations: [Personal history of other diseases of the circulatory system] 11-16-2022 Episodic Other circulatory disease (1 source) Personal history of other diseases of the circulatory system; Translations: [Personal history of other diseases of the circulatory system] Onset: 5 Episodic Other connective tissue disease (15 sources) Myalgia caused by statin 11-16-2022 Episodic Other injuries and conditions due to external causes (20 sources) At low risk for fall 10-20-2021 Episodic Other lower respiratory disease (16 sources) Dyspnea; Translations: [Dyspnea, unspecified] 01-06-2021 Episodic Other lower respiratory disease (5 sources) Dyspnea, unspecified; Translations: [Other respiratory abnormalities] Onset: 5 Episodic Other lower respiratory disease (16 sources) Nodule of lung 11-06-2022 Episodic Comment on above: 10 mm Right medial l ower lung/subpleural 11/04/22 Other lower respiratory disease (17 sources) Solitary nodule of lung; Translations: [Solitary [...] Chronic Other nutritional; endocrine; and metabolic disorders (12 sources) Obesity; Translations: [Obesity, unspecified] 08-06-2019 Chronic Other nutritional; endocrine; and metabolic disorders (5 sources) Obesity, unspecified; Translations: [Obesity, unspecified] Chronic Other nutritional; endocrine; and metabolic disorders (1 source) Morbid (severe) obesity due to excess calories; Translations: [Morbid (severe) obesity due to excess calories] Onset: 5 Chronic Other screening for suspected conditions (not [...] (adult) (pediatric)] 08-07-2019 Chronic Residual codes; unclassified (6 sources) Obstructive sleep apnea (adult) (pediatric); Translations: [Obstructive sleep apnea (adult)(pediatric)] Onset: 5 Chronic Residual codes; unclassified (20 sources) H/O Spinal surgery 06-25-2019 Episodic Residual codes; unclassified (20 sources) Immunization due 04-24-2020 Episodic Residual codes; unclassified (20 sources) Past history of procedure 12-22-2021 Episodic Residual codes; unclassified (19 sources) Screening due 05-19-2022 Episodic Residual codes; unclassified (8 sources) Edema of lower extremity; Translations: [Localized edema] 12-28-2023 Episodic Residual codes; unclassified (1 source) Localized edema; Translations: [Localized edema] Onset: 5 Episodic Screening and history of mental health [...] Drug therapy finding 08-26-2022 Urinary tract infections (12 sources) Acute pyelonephritis; Translations: [Acute pyelonephritis] 05-25-2022 Episodic Past or Other Problems Problem Classification Problem Date Documented Da te Episodic/Chronic Other connective tissue disease (1 source) Other specified soft tissue disorders; Translations: [Other specified soft tissue disorders] Onset: 07-30-2024 Episodic Other lower respiratory disease (3 sources) Solitary pulmonary nodule; Translations: [Solitary pulmonary nodule] Onset: 08-14-2023 Episodic Results Test Name Value Interpretation Reference Range Facility Pulmonary Visit Reporton Pulmonary Visit Report [facility] [address] [place] [address] OFFICE VISIT Date of Service: 01/02/25 MR#: [id number] Acct: [id number] Name: KRYSTYNA PADGETT Rep #: [id number] 3 : 1955 Provider: MIKAYLA Ruiz Age/Sex: 69/M [place] [facility] [place] Status: Signed Assessment and Plan Assessment and Plan (1) MARIELENA (obstructive sleep apnea): Status: Chronic Plan: Deteriorated. The last download that we were able to evaluate showed an elevated AHI of greater than 10. The patient also has symptoms of persistent daytime hypersomnia and his girlfriend tells him that he snores through the device. Therefore, I believe he would benefit from a retitration study. His machine is greater than 5 years old, rather than replaced the machine at suboptimal settings, we will test the patient to get the appropriate settings and then order the appropriate device. Contact the office for any new or worsening symptoms in the meantime. Follow-up in 3 months to evaluate his response to new machine and settings. (2) Morbid obesity: Status: Chronic Plan: Improving. Complicates exam, plan, care and prognosis. Continue to encourage healthy weight loss. (3) Dyspnea: Status: Chronic Qualifiers: Dyspnea type: dyspnea on exertion Qualified Code(s): R06.00 - Dyspnea, unspecified Plan: Mildly occurring on exertion. Pulmonary function test only consistent with a mild reduction diffusing capacity. The patient states that his filler shredder adjusted his diuretics after the PFT. Walking oximetry ruled out the need for supplemental oxygen on ambulation. We will continue to monitor the patient and do additional testing if symptoms progress. He does have an echocardiogram pending through cardiology next week, we will watch for test results. Orders: Orders Polysomnography with PAP Today G47.33 - Obstructive sleep apnea (adult) (pediatric) Plan Details Additional Comments: This note was generated with [employer] dictation software. It may contain incorrect words, spelling, and punctuation that were not noted in checking the note before signing. Follow Up: 3 Months HPI 6 M FU Chief Complaint: Test results HPI Comments Details: This patient presents to the office today to discuss test results. He is ambulatory and currently on room air. He has not recently been seen in the ED or urgent care for any respiratory illness. He has not required any antibiotics or prednisone for any breathing problems. He continues to have shortness of breath on exertion. He denies any cough, sputum production or hemoptysis. He denies any wheezing, chest tightness, chest pain or palpitations. He has not had any fever, chills or body aches. He continues complete smoking cessation. If you recall, this patient quit smoking decades ago. He was a very light smoker for a short period of time many years ago. He is feeling rested most days. He does snore through the pap device. He naps a couple times a week. He is also having some dry mouth. No morning headaches. He can nod off watching TV in the afternoon around 1-2 pm. Test results personally with patient: Pulmonary function test completed on October 30, 2024. Impression is isolated mild reduction in diffusing capacity. Pulmonary stress test completed on December 19, 2024. The patient was able to ambulate total of 885 feet over the course of 6 minutes. He did not become hypoxic and does not currently require supplem ental oxygen. Compliance report notable today. Unfortunately, the patient's machine has stopped uploading data and the SD card he brought in today was blank. Intake Vital Signs 06/21/24 07:41 01/02/25 07:37 Height 5 ft 6 in 5 ft 6 in Weight: 286 lb BMI 46.1 BP 102/70 Blood Pressure Location Lt radial Position Sitting Respiration 16 Pulse 77 Pulse Source Auscultation Temp 97.6 F L Temperature Source Temporal Artery Pulse Oximetry (%) 98 Oxygen Delivery Method room air Intake Visit Reasons: 6 M FU Chief Complaint: F/u MARIELENA Environmental Services Coordinator Required: No DME Vendor: [employer] Accompanied by: Self Is patient in pain?: No Allergies VICKIE Inhibitors Allergy (Severe, Verified 01/02/25 13:01) Angioedema Beta-Blockers (Beta-Adrenergic Bloc Allergy (Intermediate, Verified 01/02/25 13:01) HEART RATE DROPS VERY LOW clonidine Allergy (Verified 01/02/25 13:01) Other lisinopril Allergy (Verified 01/02/25 13:01) Angioedema simvastatin Adverse Reaction (Severe, Verified 01/02/25 13:01) myalgia rosuvastatin Adverse Reaction (Intermediate, Verified 01/02/25 13:01) Myalgia Medications ???Medication ???Instructions ???Recorded ???Confirmed ???Type allopurinol 100 mg tablet 100 mg PO BID 05/20/20 01/02/25 Hi story ezetimibe 10 mg tablet (Zetia) 10 mg PO DAILY #90 tabs 09/29/ (more content not included)... Normal [facility] Cardiology Visit Reporton Cardiology Visit Report [facility]. [address] [place] [address] OFFICE VISIT Date of Service: 12/26/24 MR#: [id number] Acct: [id number] Name: KRYSTYNA PADGETT Rep #: [id number] : 1955 Provider: Dr. 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 He is here for follow-up visit. Denies any complaints today. No palpitations. No chest pains. Shortness of breath with strenuous exertion only. Denies any orthopnea or PND. Chronic lower extremity edema. Intake Vital Signs 10/25/24 07:50 12/19/24 08:24 12/26/24 13:29 Height 5 ft 6 in 5 ft 6 in 5 ft 6 in Weight: 290 lb BMI 46.7 BP 119/69 Blood Pressure Location Lt brachial Position Sitting Respiration 18 Pulse 68 Pulse Source Monitor Pulse Oximetry (%) 96 Oxygen Delivery Method room air Intake Visit Reasons: 1 Y FU Environmental Services Coordinator Required: No Accompanied by: Self Is patient in pain?: No Allergies VICKIE Inhibitors Allergy (Severe, Verified 12/26/24 13:29) Angioedema Beta-Blockers (Beta-Adrenergic Bloc Allergy (Intermediate, Verified 12/26/24 13:29) HEART RATE DROPS VERY LOW clonidine Allergy (Verified 12/26/24 13:29) Other lisinopril Allergy (Verified 12/26/24 13:29) Angioedema simvastatin Adverse Reaction (Severe, Verified 12/26/24 13:29) myalgia rosuvastatin Adverse Reaction (Intermediate, Verified 12/26/24 13:29) Myalgia Medications ???Medication ???Instructions ???Recorded ???Confirmed ???Type allopurinol 100 mg tablet 100 mg PO BID 05/20/20 12/26/24 Hi story ezetimibe 10 mg tablet (Zetia) 10 mg PO DAILY #90 tabs 09/29/21 0 12/26/24 Rx amlodipine 5 mg tablet 5 mg PO DAILY blood pressure #90 0 03/04/22 12/26/24 Rx tabs apixaban 5 mg tablet (Eliquis) 5 mg PO BID #180 tabs 06/22/22 Rx nitroglycerin 0.4 mg sublingual 0.4 mg sublingual Q5M PRN 09/12/22 12/26/24 History tablet sildenafil 25 mg tablet mg PO PRN 09/12/23 12/26/24 Histor y potassium citrate 15 mEq (1,620 15 meq PO QDAY 10/07/24 12/26/24 H istory mg) tablet,extended release terbinafine HCl 1 % topical cream applic topical 10/07/24 12/26/24 History furosemide 40 mg tablet (Lasix) 40 mg PO QDAY #30 tabs 12/26/24 Rx spironolactone 25 mg tablet 25 mg PO QDAY #30 tabs 12/26/24 Rx Have you fallen in the past year?: No PFSH Medical History Intermittent palpitations Diminished pulses in lower extremity MARIELENA (obstructive sleep apnea) Chest pain Atrial fibrillation Fatigue Lung nodule, solitary Essential hypertension Dyspnea Obesity Bilateral kidney stones Hydronephrosis HLD (hyperlipidemia) PVCs (premature ventricular contractions) Atherosclerotic heart disease of [place] coronary artery without angina pectoris Sinus bradycardia [...] not use caffeine: No ROS Const Const: Negative for fatigue or weakness ENT ENT: Negative for dizziness or balance problems Cardio Chest Pain: No Palpitations: No Edema: Bilateral Muscle aches with walking: None Resp Respiratory: Positive for SOB with activity; Negative for SOB at rest or SOB orthopnea SOB lying down GI GI: Negative nausea, vomiting or heartburn Musc Musc: Negative for muscle weakness or balance problems Neuro Neuro: Negative for dizziness, lightheadedness, near syncope, syncope or weakness Endo Endo: Negative for fatigue Cardiology Exam Const Appearance: comfortable and no acute distress Nutritional Appearance: obese Neck Neck: no JVD Carotids: Negative bruit Chest Auscultation: Bilateral: Clear to Auscultation Cardio Rate: regular rate Rhythm: regular rhythm Heart sounds: S1 normal and S2 normal GI GI: obese Neuro General: patient al (more content not included)... Normal [facility] 6 Minute Walk Teston 025 6 Minute Walk Test y [facility] Pulmonary Services/Neurology [address] [place] [address] MR#: [id number] Acct: [id number] Name: KRYSTYNA PADGETT Rep #: [id number] : 1955 69 From: Cale Ron DO Referring Dr: Cathy Ruiz NEONATAL PEDIATRIC NURSE NEONATAL PEDIATRIC NURSE-C Status: REG CLI Location: PSN Date: Sex: M C PSN 6 Minute Walk Test 6 Minute Walk Test 6 Minute Walk Test: 6 Minute Walk Test PSN:6-Minute Walk Test Start: 12/19/24 08:24 Freq: Status: Active Protocol: RESP.6MINW Document 12/19/24 08:24 [facility] (Rec: 12/19/24 08:30 [facility] [id number]) 6 Minute Walk Test Date Performed 12/19/24 Time Performed 08:00 Height 5 ft 6 in Weight: 294 lb Weight in Pounds 294.[address]: Cathy Ruiz NEONATAL PEDIATRIC NURSE Assistive device None used: Pre-test Oxygen Delivery Room Air Method Pulse Ox (%) 98 Pulse Rate (60-100 77 beats/min) Dyspnea Adam Scale ( 2 0-10) Exertion Adam Scale 6 (6-20) 1st minute Oxygen Delivery Room Air Method Pulse Ox (%) 98 Pulse Rate (60-100 83 beats/min) Dyspnea Adam Scale ( 3 0-10) Number of Rests 0 Taken Reported Symptoms Increased Work of Breathing 2nd minute Oxygen Delivery Room Air Method Pulse Ox (%) 98 Pulse Rate (60-100 80 beats/min) Dyspnea Adam Scale ( 4 0-10) Number of Rests 0 Taken Reported Symptoms Increased Work of Breathing 3rd minute Oxygen Delivery Room Air Method Pulse Ox (%) 98 Pulse Rate (60-100 92 beats/min) Dyspnea Adam Scale ( 5 0-10) Number of Rests 1 Taken Reported Symptoms Increased Work of Breathing 4th minute Oxygen Delivery Room Air Method Pulse Ox (%) 95 Pulse Rate (60-100 102 H beats/min) Dyspnea Adam Scale ( 5 0-10) Number of Rests 0 Taken Reported Symptoms Increased Work of Breathing 5th minute Oxygen Delivery Room Air Method Pulse Ox (%) 94 Pulse Rate (60-100 99 beats/min) Dyspnea Adam Scale ( 5 0-10) Number of Rests 1 Taken Reported Symptoms Increased Work of Breathing 6th minute Oxygen Delivery Room Air Method Pulse Ox (%) 98 Pulse Rate (60-100 99 beats/min) Dyspnea Adam Scale ( 6 0-10) Exertion Adam Scale 6 (6-20) Number of Rests 0 Taken Reported Symptoms Increased Work of Breathing Post-test Oxygen Delivery Room Air Method Pulse Ox (%) 98 Pulse Rate (60-100 78 beats/min) Dyspnea Adam Scale ( 2 0-10) Full Laps Walked 15 Partial Lap, Number 0 of Tiles Walked Total Distance 885 Walked (ft) Interpretation Interpretation: The patient ambulated 885 feet over the course of 6 minutes beginning on room air without assistive devices. Pretesting oxygen saturation was noted to be 98% on room air. With ambulation, the ludy oxygen saturation was 94%. There was no significant exertional oxygen desaturation. Recommendations Recommendations: There is no indication for the use of supplemental oxygen at this time. 12/23/24 1020 Date Cale Ron DO CC: Date Dictated: 12/23/24 1020 Date Transcribed: 12/23/24 1020 Manager Patient: Dr. Cale Ron, Signed Normal [facility] 11-20-2024 U Creatinine 87.0 mg/dL Normal 40.0-278.0 [facility] Comment on above: Performed By: #### A DIFF, PSA, ANEU, CBC, A1C, GFR, CMP, URIC, LIPID #### [address] [address] #### HCV1 #### [address] [address] U Microalb 6.0 mg/L Normal [facility] Comment on above: Performed By: #### A DIFF, PSA, ANEU, CBC, A1C, GFR, CMP, URIC, LIPID #### [address] [address] #### HCV1 #### [address] [address] U Ratio Alb/Cre 7 mg/G Normal 0-30 [facility] Comment on above: Performed By: #### A DIFF, PSA, ANEU, CBC, A1C, GFR, CMP, URIC, LIPID #### [facility] [address] [place], [place] [address] #### HCV1 #### [facility] [address] [place], [place] [address] Pulmonary Visit Reporton Pulmonary Visit Report [facility] [address] [place] [address] OFFICE VISIT Date of Service: 10/25/24 MR#: [id number] Acct: [id number] Name: KRYSTYNA PADGETT Rep #: [id number] : 1955 Provider: MIKAYLA Ruiz Age/Sex: 69/M Location[place] [facility] [place] Status: Signed Assessment and Plan Assessment and [...] fu, Test results Chief Complaint: F/u MARIELENA Environmental Services Coordinator Required: No DME Vendor: [employer] Accompanied by: Self Allergies VICKIE Inhibitors Allergy [...] year?: No PFSH Medical History ... Normal [facility] Positron emission tomography scan reportOrdered By: Ryan Santana on 10-17-2024 PT Unspecified body region [facility] Imaging Services [address] [place], [place] [address] PET/CT Tumor Base -Thigh Init MR#: [id number] Acct: [id number] Name: KRYSTYNA PADGETT Rep #: [id number] : 1955 M 69 From: Pet er Franky DUBOIS PCP: Dr. Manasa Zendejas, DO Status: REG CLI Study:PET/CT Tumor Base -Thigh Init Date of E xam: 10/15/24 Exam# [id number] Ordering Dr: Tejas Ruiz NEONATAL PEDIATRIC NURSE NEONATAL PEDIATRIC NURSE-C ADDENDUM by Dr. Ryan Santana, DO on 10/17/24 at 1042 Previous PET exam images from 11/21/2023 are now available for comparison. The prior exam showed no abnormal right lung hypermetabolic focus. There has been no interval change. The current study shows no abnormal hypermetabolic focus in the right lung. Reading [facility] 10/17/24 1042 Date cc: MIKAYLA Ruiz; [...] IMPRESSION: No abnormal hypermetabolic uptake. Reading Location[facility] CC: MIKAYLA Ruiz; Dr. Manasa Zendejas DO ~ Manager Patient: Signed [facility] PET/CT Tumor Base -Thigh Ini dee 10-15-2024 PET/CT Tumor Base -Thigh Init [facility] Imaging Services [address] [place] [address] PET/CT Tumor Base -Thigh Init MR#: [id number] Acct: [id number] Name: KRYSTYNA PADGETT Rep #: [id number] : 1955 M 69 From: Ryan Santana DO PCP: Dr. Manasa Zendejas DO Status: REG CLI Study: PET/CT Tumor Base -Thigh Init Date of Exam: Exam# [id number] Ordering Dr: Cathy Ruiz NP ADDENDUM by Dr. Ryan Santana DO on 10/17/24 at 1042 Previous PET exam images from 11/21/2023 are now available for comparison. The prior exam showed no abnormal right lung hypermetabolic focus. There has been no interval change. The current study shows no abnormal hypermetabolic focus in the right lung. Reading Location: [facility] 10/17/24 1042 Date cc: MIKAYLA Ruiz; [...] IMPRESSION: No abnormal hypermetabolic uptake. Reading Location: [facility] CC: MIKAYLA Ruiz; Dr. Manasa Zendejas DO Manager Patient: Signed Normal [facility] Activated partial thrombopla stin time (aPTT) in platelet poor plasma by coagulation aOrdered By: Cathy Ruiz on 10-07-2024 aPTT Coag (PPP) [Time] 32.2 s 24.1-36.2 [facility] International normalized rat io (INR) calculationOrdered By: Cathy Ruiz on 10-07-2024 INR Coag (Bld) [Relative time] 1.1 {INR} [facility] Partial Thromboplast Timeon 10-07-2024 aPTT Coag (Bld) [Time] 32.2 s Normal 24.1-36.2 [facility] Comment on above: Performed By: #### L 100.1900, L300.3900, L300.4310 ####[facility] [address] [place], [address] Platelet Counton 10-07-2024 Platelets (Bld) [#/Vol] 227 10*3/uL Normal 150-450 [facility] Comment on above: Performed By: #### L 100.1900, L300.3900, L300.4310 ####[facility] [address] [place], [address] Platelet countOrdered By: Adryan Ruiz on 10-07-2024 Platelets (Bld) [#/Vol] 227 10*3/uL 150-450 [facility] Prothrombin Time w/INRon INR Coag (PPP) [Relative time] 1.1 {INR} Normal [facility] Comment on above: Performed By: #### L 100.1900, L300.3900, L300.4310 ####[facility] [address] [place], [address] PT Coag (PPP) [Time] 14.2 s Normal 11.7-14.9 [facility] Comment on above: Performed By: #### L 100.1900, L300.3900, L300.4310 ####[facility] [address] [place], [address] Prothrombin timeOrdered By: Cathy Ruiz on 10-07-2024 PT Coag (PPP) [Time] 14.2 s 11.7-14.9 [facility] Pulmonary Visit Reporton Pulmonary Visit Report [facility] [place] [address] [place], [place] [address] OFFICE VISIT Date of Service: 10/07/24 MR#: [id number] Acct: [id number] Name: KRYSTYNA PADGETT HANK Rep #: [id number] : 1955 Provider: MIKAYLA Ruiz Age/Sex: 69/M Location[place] [facility] [place] Status: Signed Assessment and Plan Assessment and [...] field Plan Details Follow Up: 2 Weeks ([facility]) HPI Discuss CT Chief Complaint: Test results [...] Reasons: Discuss CT Chief Complaint: F/u MARIELENA Environmental Services Coordinator Required: No DME Vendor: [employer] Accompanied by: [...] 25 mg (more content not included)... Normal [facility] aPTT Coag (PPP) [Time]Ordere d By: Cathy Ruiz on 10-07-2024 aPTT Coag (Bld) [Time] 32.2 s 24.1-36.2 [facility] CT ANGIOGRAPHY CHEST W/CONTR Torsten 10-01-2024 CT [...] 1:06:02 PM Ordering Provider: MANASA ZENDEJAS Normal [facility] .Auto Diffon 08-23-2024 Basophil, Absolute 0.0 10 3/mcL Normal 0.0-0.2 [facility] Comment on above: Performed By: #### A DIFF, PSA, ANEU, CBC, A1C, GFR, CMP, URIC, LIPID #### [facility] [address] [place], [place] [address] #### HCV1 #### [facility] [address] [place] [address] Basophils/100 WBC (Bld) 0.4 % Normal 0.0-2.5 [facility] Comment on above: Performed By: #### A DIFF, PSA, ANEU, CBC, A1C, GFR, CMP, URIC, LIPID #### [address] [address] #### HCV1 #### [address] [address] Eosinophil, Absolute 0.1 10 3/mcL Normal 0.0-0.7 [facility] Comment on above: Performed By: #### A DIFF, PSA, ANEU, CBC, A1C, GFR, CMP, URIC, LIPID #### [place] [address] #### HCV1 #### [address] [address] Eosinophils/100 WBC (Bld) 1.2 % Normal 0.0-7.0 [facility] Comment on above: Performed By: #### A DIFF, PSA, ANEU, CBC, A1C, GFR, CMP, URIC, LIPID #### [place] [address] #### HCV1 #### [address] [address] Lymphocyte, Absolute 1.3 10 3/mcL Normal 0.9-4.3 [facility] Comment on above: Performed By: #### A DIFF, PSA, ANEU, CBC, A1C, GFR, CMP, URIC, LIPID #### [place] [address] #### HCV1 #### [address] [address] Lymphocytes/100 WBC (Bld) 15.2 % Low 20.0-40.0 [facility] Comment on above: Performed By: #### A DIFF, PSA, ANEU, CBC, A1C, GFR, CMP, URIC, LIPID #### [place] [address] #### HCV1 #### [address] [address] Monocyte, Absolute 0.6 10 3/mcL Normal 0.1-1.4 [facility] Comment on above: Performed By: #### A DIFF, PSA, ANEU, CBC, A1C, GFR, CMP, URIC, LIPID #### [address] [address] #### HCV1 #### [address] [address] Monocytes/100 WBC (Bld) 6.6 % Normal 2.0-13.0 [facility] Comment on above: Performed By: #### A DIFF, PSA, ANEU, CBC, A1C, GFR, CMP, URIC, LIPID #### [address] [address] #### HCV1 #### [address] [address] Neutrophils/100 WBC (Bld) 76.6 % High 50.0-75.0 [facility] Comment on above: Performed By: #### A DIFF, PSA, ANEU, CBC, A1C, GFR, CMP, URIC, LIPID #### [address] [address] #### HCV1 #### [address] [address] .GFRon 08-23-2024 Estimated Glomerular Filtration Rate 96 ml/min/1.73sqm Normal [facility] Comment on above: Result Comment: Stages [...] CBC, A1C, GFR, CMP, URIC, LIPID #### [address] [address] #### HCV1 #### [address] [address] .NEUABSon 08-23-2024 Neutrophil, Absolute 6.4 10 3/mcL Normal 2.3-8.1 [facility] Comment on above: Performed By: #### A DIFF, PSA, ANEU, CBC, A1C, GFR, CMP, URIC, LIPID #### [address] [address] #### HCV1 #### [place] [address] A1Con 08-23-2024 Glucose [Mass/Vol] 114 mg/dL Normal [facility] Comment on above: Order Comment: cc re sults to cardiology ([place]) Dr. Hwak Result Comment: Radha mated Average Glucose calculated by equation ((28.7xA1C)-46.7) Estimated average glucose (eAG) is a calculated value from Hemoglobin A1C and is player services representative of the average blood glucose level in the last 2-3 month period. Normal range: less than 114 mg/dL Performed By: #### A DIFF, PSA, ANEU, CBC, A1C, GFR, CMP, URIC, LIPID #### [address] [address] #### HCV1 #### [place] [address] HbA1c (Bld) [Mass fraction] 5.6 % Normal 4.3-6.4 [facility] Comment on above: Order Comment: cc sarah sulrichard to cardiology ([place]) Dr. Hawk Performed By: #### A DIFF, PSA, ANEU, CBC, A1C, GFR, CMP, URIC, LIPID #### [address] [address] #### HCV1 #### [address] [address] CBCon 08-23-2024 Erythrocyte distribution width (RBC) [Ratio] 14.5 % Normal 11.5-15.5 [facility] Comment on above: Order Comment: cc re sults to cardiology ([place]) Dr. Hawk Performed By: #### A DIFF, PSA, ANEU, CBC, A1C, GFR, CMP, URIC, LIPID #### [address] [address] #### HCV1 #### [address] [address] Hematocrit (Bld) [Volume fraction] 42.3 % Normal 40.0-52.0 [facility] Comment on above: Order Comment: cc re sults to cardiology ([place]) Dr. Hawk Performed By: #### A DIFF, PSA, ANEU, CBC, A1C, GFR, CMP, URIC, LIPID #### [address] [address] #### HCV1 #### [place] [address] Hgb 14.4 G/dL Normal 13.0-17.5 [facility] Comment on above: Order Comment: cc re sults to cardiology ([place]) Dr. Hawk Performed By: #### A DIFF, PSA, ANEU, CBC, A1C, GFR, CMP, URIC, LIPID #### [address] [address] #### HCV1 #### [address] [address] MCH (RBC) [Entitic mass] 30.0 pg Normal 27.0-33.0 [facility] Comment on above: Order Comment: cc re sults to cardiology ([place]) Dr. Hawk Performed By: #### A DIFF, PSA, ANEU, CBC, A1C, GFR, CMP, URIC, LIPID #### [address] [address] #### HCV1 #### [place] [address] MCHC 34.0 G/dL Normal 32.0-36.0 [facility] Comment on above: Order Comment: cc re sults to cardiology ([place]) Dr. Hawk Performed By: #### A DIFF, PSA, ANEU, CBC, A1C, GFR, CMP, URIC, LIPID #### [address] [address] #### HCV1 #### [address] [address] MCV (RBC) [Entitic vol] 88.5 fL Normal 81.0-100.0 [facility] Comment on above: Order Comment: cc re sults to cardiology ([place]) Dr. Hawk Performed By: #### A DIFF, PSA, ANEU, CBC, A1C, GFR, CMP, URIC, LIPID #### [address] [address] #### HCV1 #### [place] [address] Platelet 213 10 3/mcL Normal 150-450 [facility] Comment on above: Order Comment: cc re sults to cardiology ([place]) Dr. Hawk Performed By: #### A DIFF, PSA, ANEU, CBC, A1C, GFR, CMP, URIC, LIPID #### [place] [address] #### HCV1 #### [address] [address] Platelet mean volume (Bld) [Entitic vol] 9.3 fL Normal 6.4-10.5 [facility] Comment on above: Order Comment: cc re sults to cardiology ([place]) Dr. Hawk Performed By: #### A DIFF, PSA, ANEU, CBC, A1C, GFR, CMP, URIC, LIPID #### [place] [address] #### HCV1 #### [address] [address] RBC 4.79 10 6/mcL Normal 4.50-6.00 [facility] Comment on above: Order Comment: cc re sults to cardiology ([place]) Dr. Hawk Performed By: #### A DIFF, PSA, ANEU, CBC, A1C, GFR, CMP, URIC, LIPID #### [place] [address] #### HCV1 #### [place] [address] WBC 8.4 10 3/mcL Normal 4.5-10.8 [facility] Comment on above: Order Comment: cc re sults to cardiology ([place]) Dr. Hawk Performed By: #### A DIFF, PSA, ANEU, CBC, A1C, GFR, CMP, URIC, LIPID #### [address] [address] #### HCV1 #### [place] [address] CMPon 08-23-2024 Albumin Level 3.8 G/dL Normal 3.4-4.8 [facility] Comment on above: Order Comment: cc re sults to cardiology ([place]) Dr. Hawk Performed By: #### A DIFF, PSA, ANEU, CBC, A1C, GFR, CMP, URIC, LIPID #### [place] [address] #### HCV1 #### [place] [address] Albumin/Globulin [Mass ratio] 1.1 {ratio} Normal 1.1-2.5 [facility] Comment on above: Order Comment: cc re sults to cardiology ([place]) Dr. Hawk Performed By: #### A DIFF, PSA, ANEU, CBC, A1C, GFR, CMP, URIC, LIPID #### [address] [address] #### HCV1 #### [place] [address] ALP [Catalytic activity/Vol] 71 U/L Normal 40-135 [facility] Comment on above: Order Comment: cc re sults to cardiology ([place]) Dr. Hawk Performed By: #### A DIFF, PSA, ANEU, CBC, A1C, GFR, CMP, URIC, LIPID #### [address] [address] #### HCV1 #### [place] [address] ALT [Catalytic activity/Vol] 21 U/L Normal 16-63 [facility] Comment on above: Order Comment: cc re sults to cardiology ([place]) Dr. Hawk Performed By: #### A DIFF, PSA, ANEU, CBC, A1C, GFR, CMP, URIC, LIPID #### [address] [address] #### HCV1 #### [address] [address] AST [Catalytic activity/Vol] 15 U/L Normal 10-40 [facility] Comment on above: Order Comment: cc re sults to cardiology ([place]) Dr. Hawk Performed By: #### A DIFF, PSA, ANEU, CBC, A1C, GFR, CMP, URIC, LIPID #### [place] [address] #### HCV1 #### [place] [address] Bili Total 1.0 mg/dL Normal 0.2-1.0 [facility] Comment on above: Order Comment: cc re sults to cardiology ([place]) Dr. Hawk Result Comment: Use of this assay is not recommended for patients undergoing treatment with eltrombopag due to the potential for falsely elevated results. Performed By: #### A DIFF, PSA, ANEU, CBC, A1C, GFR, CMP, URIC, LIPID #### [address] [address] #### HCV1 #### [place] [address] BUN/Creatinine Ratio 26 ratio Normal 7-27 [facility] Comment on above: Order Comment: cc re sults to cardiology ([place]) Dr. Hawk Performed By: #### A DIFF, PSA, ANEU, CBC, A1C, GFR, CMP, URIC, LIPID #### [place] [address] #### HCV1 #### [place] [address] Calcium [Mass/Vol] 9.4 mg/dL Normal 8.4-10.2 [facility] Comment on above: Order Comment: cc re sults to cardiology ([place]) Dr. Hawk Performed By: #### A DIFF, PSA, ANEU, CBC, A1C, GFR, CMP, URIC, LIPID #### [address] [address] #### HCV1 #### [address] [address] Chloride [Moles/Vol] 104 mmol/L Normal 98-107 [facility] Comment on above: Order Comment: re sults to cardiology ([place]) Dr. Hawk Performed By: #### A DIFF, PSA, ANEU, CBC, A1C, GFR, CMP, URIC, LIPID #### [address] [address] #### HCV1 #### [place] [address] CO2 [Moles/Vol] 34 mmol/L High 23-31 [facility] Comment on above: Order Comment: cc re sults to cardiology ([place]) Dr. Hawk Performed By: #### A DIFF, PSA, ANEU, CBC, A1C, GFR, CMP, URIC, LIPID #### [place] [address] #### HCV1 #### [place] [address] Creatinine [Mass/Vol] 0.81 mg/dL Normal 0.70-1.30 [facility] Comment on above: Order Comment: re sults to cardiology ([place]) Dr. Hawk Result Comment: Test ing performed on Siemens Dimension EXL analyzer using a modified kinetic Shahana technique. Performed By: #### A DIFF, PSA, ANEU, CBC, A1C, GFR, CMP, URIC, LIPID #### [place] [address] #### HCV1 #### [place] [address] Electrolyte Balance 2.0 mEq/L Low 4.0-15.0 [facility] Comment on above: Order Comment: cc re sults to cardiology ([place]) Dr. Hawk Performed By: #### A DIFF, PSA, ANEU, CBC, A1C, GFR, CMP, URIC, LIPID #### [address] [id number] #### HCV1 #### [address] [address] Globulin 3.4 G/dL Normal 1.5-3.8 [facility] Comment on above: Order Comment: cc re sults to cardiology ([place]) Dr. Hawk Performed By: #### A DIFF, PSA, ANEU, CBC, A1C, GFR, CMP, URIC, LIPID #### [address] [address] #### HCV1 #### [address] [address] Glucose [Mass/Vol] 89 mg/dL Normal 80-115 [facility] Comment on above: Order Comment: cc re sults to cardiology ([place]) Dr. Hawk Performed By: #### A DIFF, PSA, ANEU, CBC, A1C, GFR, CMP, URIC, LIPID #### [address] [address] #### HCV1 #### [address] [address] Potassium [Moles/Vol] 3.6 mmol/L Normal 3.5-5.1 [facility] Comment on above: Order Comment: cc re sults to cardiology ([place]) Dr. Hawk Performed By: #### A DIFF, PSA, ANEU, CBC, A1C, GFR, CMP, URIC, LIPID #### [address] [address] #### HCV1 #### [address] [address] Sodium [Moles/Vol] 140 mmol/L Normal 136-145 [facility] Comment on above: Order Comment: cc re sults to cardiology ([place]) Dr. Hawk Performed By: #### A DIFF, PSA, ANEU, CBC, A1C, GFR, CMP, URIC, LIPID #### [address] [address] #### HCV1 #### [place] [address] Total Protein 7.2 G/dL Normal 6.4-8.2 [facility] Comment on above: Order Comment: cc re sults to cardiology ([place]) Dr. Hawk Performed By: #### A DIFF, PSA, ANEU, CBC, A1C, GFR, CMP, URIC, LIPID #### [place] [address] #### HCV1 #### [place] [address] Urea nitrogen [Mass/Vol] 21 mg/dL High 7-18 [facility] Comment on above: Order Comment: cc re sults to cardiology ([place]) Dr. Hawk Performed By: #### A DIFF, PSA, ANEU, CBC, A1C, GFR, CMP, URIC, LIPID #### [place] [address] #### HCV1 #### [place] [address] HCVon 08-23-2024 Hep C Ab Non-Reactive Normal Non-Reactiv e [facility] Comment on above: Order Comment: cc re sults to cardiology ([place]) Dr. Hawk Performed By: #### A DIFF, PSA, ANEU, CBC, A1C, GFR, CMP, URIC, LIPID #### [place] [address] #### HCV1 #### [place] [address] Hep C Ab Int Normal [facility] Comment on above: Order Comment: cc re sults to cardiology ([place]) Dr. Hawk Result Comment: Nonr eactive: Samples [...] CBC, A1C, GFR, CMP, URIC, LIPID #### [place] [id number] #### HCV1 #### [place] [address] LABORATORYOrdered By: SYSTEM SYSTEM on 08-23-2024 Albumin [...] calculated value from Hemoglobin A1C and is player services representative of the average blood glucose level [...] 08-23-2024 Cholesterol [Mass/Vol] 190 mg/dL Normal 0-200 [facility] Comment on above: Order Comment: cc re sults to cardiology ([place]) Dr. Hawk Result Comment: Chol esterol Reference Interval: Less than 200 Desirable 200-239 Borderline high risk 240 and above High risk Performed By: #### A DIFF, PSA, ANEU, CBC, A1C, GFR, CMP, URIC, LIPID #### [address] [address] #### HCV1 #### [address] [address] Cholesterol in HDL [Mass/Vol] 75 mg/dL High 40-60 [facility] Comment on above: Order Comment: sarah sults to cardiology ([place]) Dr. Hawk Performed By: #### A DIFF, PSA, ANEU, CBC, A1C, GFR, CMP, URIC, LIPID #### [address] [address] #### HCV1 #### [address] [address] Cholesterol in LDL [Mass/Vol] 102 mg/dL Normal 0-130 [facility] Comment on above: Order Comment: sarah sults to cardiology ([place]) Dr. Hawk Performed By: #### A DIFF, PSA, ANEU, CBC, A1C, GFR, CMP, URIC, LIPID #### [address] [address] #### HCV1 #### [place] [address] Triglyceride [Mass/Vol] 65 mg/dL Normal 0-150 [facility] Comment on above: Order Comment: cc sarah brown to cardiology ([place]) Dr. Hawk Result Comment: Trig lyceride Reference Interval: Less than 150 Normal 150-199 Borderline high risk 200-499 High risk 500 or higher Very high risk Performed By: #### A DIFF, PSA, ANEU, CBC, A1C, GFR, CMP, URIC, LIPID #### [place] [address] #### HCV1 #### [place] [address] PSAon 08-23-2024 Prostate Specific Antigen 1.95 ng/mL Normal 0.00-4.00 [facility] Comment on above: Order Comment: rosas brown to urology ([place]) Dr. Osman Performed By: #### A DIFF, PSA, ANEU, CBC, A1C, GFR, CMP, URIC, LIPID #### [place] [address] #### HCV1 #### [place] [address] URICon 08-23-2024 Uric Acid Lvl 6.8 mg/dL Normal 3.5-7.2 [facility] Comment on above: Order Comment: rosas brown to cardiology ([place]) Dr. Hawk Performed By: #### A DIFF, PSA, ANEU, CBC, A1C, GFR, CMP, URIC, LIPID #### [place] [address] #### HCV1 #### [place] [address] Emergency Department Summary on 07-02-2024 Emergency Department Summary [facility] Medical Records Department [address] [place] [address] Emergency Department Summary 07/02/24 MR#: [id number] Acct: [id number] Name: KRYSTYNA PADGETT Rep #: [id number] : 1955 69 From: Behzad Rivera DO [...] is not a diabetic. No reported fevers. [facility] Medical History Intermittent palpitations Diminished pulses in lower extremity MARIELENA (obstructive sleep apnea) Chest pain Atrial fibrillation Fatigue Lung nodule, solitary Essential hypertension Dyspnea Obesity Bilateral kidney stones Hydronephrosis HLD (hyperlipidemia) PVCs (premature ventricular contractions) Atherosclerotic heart disease of [place] coronary artery without angina pectoris Sinus bradycardia [...] 09:58 Beta-Blockers Allergy Intermediate HEART RATE Verified 07/02/24 09:58 (Beta-Adrenergic Bloc DROPS VERY LOW clonidine [...] well developed (more content not included)... Normal [facility] Pulmonary Visit Reporton Pulmonary Visit Report [facility] [place] [address] [place] [address] OFFICE VISIT Date of Service: 06/21/24 MR#: [id number] Acct: [id number] Name: KRYSTYNA PADGETT Rep #: [id number] : 1955 Provider: MIKAYLA Ruiz Age/Sex: 69/M [place] [facility] [place] Status: Signed with Addenda ADDENDUM by Aileen Murillo on 06/21/24 at 1230 Office Procedure Documentation entered by Aileen Murillo 06/21/24 12:30: Immunizations Fluad Triv (65y up)(PF) 45 mcg (15 mcg x 3)/0.5 mL IM syringe Performing Provider: Cathy Ruiz NEONATAL PEDIATRIC NURSE, NEONATAL PEDIATRIC NURSE-C Performing Location: [place] [facility] Administered by: Aileen Murillo on 06/21/24 12:20 Dose Route Admin Location Dispensed Lot Number Expiration Date [facility] Man ufacturer 45 mcg IM Left Deltoid 0.5 mL [id number] 10/26/24 22474-147-42 [employer], [employer] 3. VIS Given Date VIS Provided VIS Publication [...] Encounter for immunization Medications: New Fluad Triv (65y up)(PF) 45 mcg (15 mcg x 3)/0.5 mL (flu vac 2023 [id number](PF)) 45 mcg IM ONCE 0.5 mL 0RF NS Z23 - Encounter for immunization Plan Details Follow Up: 6 Months ([facility]) HPI 5 m fu Chief [...] 5 m fu Chief Complaint: F/u MARIELENA Environmental Services Coordinator Required: No DME Vendor: larissa Truong Accompanied by: Self Is patient in pain?: [...] #90 tabs (more content not included)... Normal [facility] Chest without Contraston Chest without Contrast [facility] Imaging Services [address], [place] [id number] Chest without Contrast MR#: [id number] Acct: [id number] Name: KRYSTYNA PADGETT Rep #: [id number] : 1955 M 68 From: Jensen Leung MD PCP: Dr. Manasa Zendejas, DO Status: REG CLI Study: Chest without Contrast Date of Exam: 05/22/24 Exam# [id number] Ordering Dr: Cathy Ruiz NP NEONATAL PEDIATRIC NURSE-C [id number] INDICATION: follow nodule EXAMINATION: CT CHEST WITHOUT [...] CC: MIKAYLA Ruiz; Dr. Manasa Zendejas DO Manager Patient: Signed Normal [facility] Echo Complete W/ Contraston 01-31-2024 Echo Complete W/ Contrast [facility] Cardiovascular Services [address] [place] [address] Echo Complete W/ Contrast 01/31/24 0833 MR#: [id number] Acct: [id number] Name: KRYSTYNA PADGETT Rep #: [id number] : 1955 68 From: Donn Hawk MD Attending Dr: Dr. Donn Hawk MD Status: REG CLI Ordering Dr: Donn Hawk MD Date: 01/31/24 Location: [facility] Sex: M C Admitted: Reason For Study: [...] Referring Physician: Manasa Zendejas Performed By: Carina Lemos, RDCS, RVT 01/31/24 1059 Date Donn Hawk MD CC: Dr. Donn Hawk MD; Dr. Manasa Zendejas, Date Dictated: 01/31/24832 Date Transcribed: 01/31/241058 Manager Patient: Signed Normal [facility] Stress Reporton 01-31-2024 Stress Report [facility] Cardiovascular Services [address] [place] [address] MR#: [id number] Acct: [id number] Name: KRYSTYNA PADGETT Rep #: [id number] : 1955 68 From: Donn Hawk MD Primary Care: Dr. Manasa Zendejas, Status: REG CLI Referring Dr: Donn Hawk [...] of 64%. This note was generated with [employer] software. It may contain incorrect words, spelling, and punctuation that were not noted in checking the note before signing. 01/31/24 1252 Date Donn Hawk MD CC: Dr. Donn Hawk MD; Dr. Manasa Zendejas DO Date Dictated: 01/31/241250 Date Transcribed: 01/31/241250 Manager Patient: VITOR Signed Normal [facility] Pulmonary Visit Reporton Pulmonary Visit Report [facility] [place] [address] [place] [address] OFFICE VISIT Date of Service: 01/18/24 MR#: [id number] Acct: [id number] Name: KRYSTYNA PADGETT Rep #: [id number] : 1955 Provider: MIKAYLA Ruiz Age/Sex: 68/M Location[place] [facility] [place] Status: Signed Assessment and Plan Assessment and [...] pulmonary nodule Plan Details Follow Up: 06/09/24 ([facility]) HPI 4 M FU Chief [...] 4 M FU Chief Complaint: F/u MARIELENA Environmental Services Coordinator Required: No DME Vendor: Alexi Accompanied by: [...] the past year?: No PFSH Medical History (Reviewed 01/18/24 @ 08:18 by Cathy Ruiz NEONATAL PEDIATRIC NURSE, NEONATAL PEDIATRIC NURSE-C) Intermittent palpitations Diminished pulses in lower extremity MARIELENA (obstructive sleep apnea) Chest pain Atrial fibrillation Fatigue Lung nodule, solitary Esse (more content not included)... Normal [facility] CT THORAX W/O CONTRASTon CT THORAX W/O [...] 08/16/2023 3:06:39 PM Ordering Provider: MANASA Rahman [facility] ([place]) .Auto Diffon 08-14-2023 Basophil, Absolute 0.0 10 3/mcL Normal 0.0-0.2 [facility] ([place]) Comment on above: Performed By: #### U RICCO, LIPID, A1C, ADIFF, CBC, ANEU, CMP, GFR #### [address] [address] Basophils/100 WBC (Bld) 0.3 % Normal 0.0-2.5 A [facility] ([place]) Comment on above: Performed By: #### U RICCO, LIPID, A1C, ADIFF, CBC, ANEU, CMP, GFR #### [address] [address] Eosinophil, Absolute 0.0 10 3/mcL Normal 0.0-0.4 [facility] ([place]) Comment on above: Performed By: #### U RICCO, LIPID, A1C, ADIFF, CBC, ANEU, CMP, GFR #### [address] [address] Eosinophils/100 WBC (Bld) 0.4 % Normal 0.0-7.0 [facility] ([place]) Comment on above: Performed By: #### U RICCO, LIPID, A1C, ADIFF, CBC, ANEU, CMP, GFR #### [address] [address] Lymphocyte, Absolute 1.2 10 3/mcL Normal 0.8-3.9 [facility] ([place]) Comment on above: Performed By: #### U RICCO, LIPID, A1C, ADIFF, CBC, ANEU, CMP, GFR #### [address] [address] Lymphocytes/100 WBC (Bld) 10.2 % Normal 10.0-50.0 [facility] ([place]) Comment on above: Performed By: #### U RICCO, LIPID, A1C, ADIFF, CBC, ANEU, CMP, GFR #### [address] [address] Monocyte, Absolute 0.6 10 3/mcL Normal 0.2-1.0 [facility] ([place]) Comment on above: Performed By: #### U RICCO, LIPID, A1C, ADIFF, CBC, ANEU, CMP, GFR #### [address] [address] Monocytes/100 WBC (Bld) 5.0 % Normal 1.7-13.0 A [facility] ([place]) Comment on above: Performed By: #### U RICCO, LIPID, A1C, ADIFF, CBC, ANEU, CMP, GFR #### [address] [address] Neutrophils/100 WBC (Bld) 84.1 % High 37.0-80.0 [facility] ([place]) Comment on above: Performed By: #### U RICCO, LIPID, A1C, ADIFF, CBC, ANEU, CMP, GFR #### [address] [address] .GFRon 08-14-2023 GFR Non- 85 ml/min/1.73sqm Normal [facility] ([place]) Comment on above: Result Comment: GFR Population [...] A1C, ADIFF, CBC, ANEU, CMP, GFR #### [place] [address] [place], [place] [address] GFR 103 ml/min/1.73sqm Normal [facility] ([place]) Comment on above: Result Comment: GFR Population [...] A1C, ADIFF, CBC, ANEU, CMP, GFR #### [address] [address] .NEUABSon 08-14-2023 Neutrophil, Absolute 9.6 10 3/mcL High 2.9-6.2 [facility] ([place]) Comment on above: Performed By: #### U RICCO, LIPID, A1C, ADIFF, CBC, ANEU, CMP, GFR #### [address] [address] A1Con 08-14-2023 HbA1c (Bld) [Mass fraction] 5.4 % Normal 4.3-6.4 [facility] ([place]) Comment on above: Order Comment: cc sarah brown to Dr. [facility] Performed By: #### U RICCO, LIPID, A1C, ADIFF, CBC, ANEU, CMP, GFR #### [address] [address] CBCon 08-14-2023 Erythrocyte distribution width (RBC) [Ratio] 13.8 % Normal 11.5-14.5 [facility] ([place]) Comment on above: Order Comment: rosas brown to Dr. [facility] Performed By: #### U RICCO, LIPID, A1C, ADIFF, CBC, ANEU, CMP, GFR #### [place] [address] Hematocrit (Bld) [Volume fraction] 43.9 % Normal 42.0-52.0 [facility] ([place]) Comment on above: Order Comment: rosas brown to Dr. [facility] Performed By: #### U RICCO, LIPID, A1C, ADIFF, CBC, ANEU, CMP, GFR #### [place] [address] Hgb 15.0 G/dL Normal 14.0-18.0 [facility] ([place]) Comment on above: Order Comment: rosas brown to Dr. [facility] Performed By: #### U RICCO, LIPID, A1C, ADIFF, CBC, ANEU, CMP, GFR #### [place] [id number] MCH (RBC) [Entitic mass] 30.3 pg Normal 27.0-31.2 [facility] ([place]) Comment on above: Order Comment: rosas brown to Dr[facility] Performed By: #### U RICCO, LIPID, A1C, ADIFF, CBC, ANEU, CMP, GFR #### [place] [address] MCHC 34.1 G/dL Normal 31.8-35.4 [facility] ([place]) Comment on above: Order Comment: rosas brown to Dr. [facility] Performed By: #### U RICCO, LIPID, A1C, ADIFF, CBC, ANEU, CMP, GFR #### [place] [id number] MCV (RBC) [Entitic vol] 88.9 fL Normal 80.0-94.0 A [facility] ([place]) Comment on above: Order Comment: rosas brown to Dr. [facility] Performed By: #### U RICCO, LIPID, A1C, ADIFF, CBC, ANEU, CMP, GFR #### [address] [address] Platelet 199 10 3/mcL Normal 130-400 [facility] ([place]) Comment on above: Order Comment: rosas brown to Dr. [facility] Performed By: #### U RICCO, LIPID, A1C, ADIFF, CBC, ANEU, CMP, GFR #### [address] [address] Platelet mean volume (Bld) [Entitic vol] 9.4 fL Normal 7.4-10.4 [facility] ([place]) Comment on above: Order Comment: rosas brown to Dr. [facility] Performed By: #### U RICCO, LIPID, A1C, ADIFF, CBC, ANEU, CMP, GFR #### [place] [address] RBC 4.94 10 6/mcL Normal 4.04-6.13 [facility] ([place]) Comment on above: Order Comment: rosas brown to Dr. [facility] Performed By: #### U RICCO, LIPID, A1C, ADIFF, CBC, ANEU, CMP, GFR #### [address] [address] WBC 11.4 10 3/mcL High 4.6-10.8 [facility] ([place]) Comment on above: Order Comment: rosas brown to Dr[facility] Performed By: #### U RICCO, LIPID, A1C, ADIFF, CBC, ANEU, CMP, GFR #### [address] [address] CMPon 08-14-2023 Albumin Level 3.6 G/dL Normal 3.4-4.8 [facility] ([place]) Comment on above: Order Comment: rosas brown to Dr. [facility] Performed By: #### U RICCO, LIPID, A1C, ADIFF, CBC, ANEU, CMP, GFR #### [address] [address] Albumin/Globulin [Mass ratio] 1.0 {ratio} Low 1.1-2.5 [facility] ([place]) Comment on above: Order Comment: rosas brown to Dr[facility] Performed By: #### U RICCO, LIPID, A1C, ADIFF, CBC, ANEU, CMP, GFR #### [address] [address] ALP [Catalytic activity/Vol] 78 U/L Normal 40-135 [facility] ([place]) Comment on above: Order Comment: rosas brown to Dr[facility] Performed By: #### U RICCO, LIPID, A1C, ADIFF, CBC, ANEU, CMP, GFR #### [place] [address] ALT [Catalytic activity/Vol] 30 U/L Normal 16-63 [facility] ([place]) Comment on above: Order Comment: rosas brown to Dr[facility] Performed By: #### U IRCCO, LIPID, A1C, ADIFF, CBC, ANEU, CMP, GFR #### [place] [id number] AST [Catalytic activity/Vol] 13 U/L Normal 10-40 [facility] ([place]) Comment on above: Order Comment: rosas brown to [facility] Performed By: #### U RICCO, LIPID, A1C, ADIFF, CBC, ANEU, CMP, GFR #### [address] [address] Bili Total 1.0 mg/dL Normal 0.2-1.0 [facility] ([place]) Comment on above: Order Comment: rosas brown to Dr. [facility] Result Comment: Use of this assay is not recommended for patients undergoing treatment with eltrombopag due to the potential for falsely elevated results. Performed By: #### U RICCO, LIPID, A1C, ADIFF, CBC, ANEU, CMP, GFR #### [place] [address] BUN/Creatinine Ratio 27 ratio Normal 7-27 [facility] ([place]) Comment on above: Order Comment: rosas brown to Dr. [facility] Performed By: #### U RICCO, LIPID, A1C, ADIFF, CBC, ANEU, CMP, GFR #### [address] [address] Calcium [Mass/Vol] 9.7 mg/dL Normal 8.4-10.2 [facility] ([place]) Comment on above: Order Comment: rosas brown to Dr. [facility] Performed By: #### U RICCO, LIPID, A1C, ADIFF, CBC, ANEU, CMP, GFR #### [address] [address] Chloride [Moles/Vol] 102 mmol/L Normal 98-107 [facility] ([place]) Comment on above: Order Comment: rosas brown to Dr[facility] Performed By: #### U RICCO, LIPID, A1C, ADIFF, CBC, ANEU, CMP, GFR #### [address] [address] CO2 [Moles/Vol] 33 mmol/L High 23-31 [facility] ([place]) Comment on above: Order Comment: rosas brown to Dr[facility] Performed By: #### U RICCO, LIPID, A1C, ADIFF, CBC, ANEU, CMP, GFR #### [address] [address] Creatinine [Mass/Vol] 0.89 mg/dL Normal 0.70-1.30 [facility] ([place]) Comment on above: Order Comment: rosas brown to Dr. [facility] Performed By: #### U RICCO, LIPID, A1C, ADIFF, CBC, ANEU, CMP, GFR #### [address] [address] Electrolyte Balance 9.0 mEq/L Normal 4.0-15.0 [facility] ([place]) Comment on above: Order Comment: rosas brown to Dr. [facility] Performed By: #### U RICCO, LIPID, A1C, ADIFF, CBC, ANEU, CMP, GFR #### [address] [address] Globulin 3.5 G/dL Normal [facility] ([place]) Comment on above: Order Comment: rosas brown to Dr[facility] Performed By: #### U RICCO, LIPID, A1C, ADIFF, CBC, ANEU, CMP, GFR #### [address] [address] Glucose [Mass/Vol] 93 mg/dL Normal 80-115 [facility] ([place]) Comment on above: Order Comment: rosas brown to Dr. [facility] Performed By: #### U RICCO, LIPID, A1C, ADIFF, CBC, ANEU, CMP, GFR #### [address] [address] Potassium [Moles/Vol] 4.1 mmol/L Normal 3.5-5.1 [facility] ([place]) Comment on above: Order Comment: rosas brown to Dr. [facility] Performed By: #### U RICCO, LIPID, A1C, ADIFF, CBC, ANEU, CMP, GFR #### [address] [address] Sodium [Moles/Vol] 144 mmol/L Normal 136-145 [facility] ([place]) Comment on above: Order Comment: rosas brown to Dr. [facility] Performed By: #### U RICCO, LIPID, A1C, ADIFF, CBC, ANEU, CMP, GFR #### [address] [address] Total Protein 7.1 G/dL Normal 6.4-8.2 [facility] ([place]) Comment on above: Order Comment: rosas brown to Dr[facility] Performed By: #### U RICCO, LIPID, A1C, ADIFF, CBC, ANEU, CMP, GFR #### [address] [address] Urea nitrogen [Mass/Vol] 24 mg/dL High 7-18 [facility] ([place]) Comment on above: Order Comment: rosas brown to Dr[facility] Performed By: #### U RICCO, LIPID, A1C, ADIFF, CBC, ANEU, CMP, GFR #### [address] [address] LIPIDon 08-14-2023 Cholesterol [Mass/Vol] 189 mg/dL Normal 0-200 [facility] ([place]) Comment on above: Order Comment: rosas brown to Dr. [facility] Result Comment: Chol esterol Reference Interval: Less than 200 Desirable 200-239 Borderline high risk 240 and above High risk Performed By: #### G FR, CRE #### [address] [address] Cholesterol in HDL [Mass/Vol] 74 mg/dL High 40-60 [facility] ([place]) Comment on above: Order Comment: rosas brown to Dr. [facility] Performed By: #### G FR, CRE #### [address] [address] Cholesterol in LDL [Mass/Vol] 106 mg/dL Normal 0-130 [facility] ([place]) Comment on above: Order Comment: rosas brown to Dr. [facility] Performed By: #### G FR, CRE #### [address] [address] Triglyceride [Mass/Vol] 45 mg/dL Normal 0-150 A [facility] ([place]) Comment on above: Order Comment: rosas brown to Dr. [facility] Result Comment: Trig lyceride Reference Interval: Less than 150 Normal 150-199 Borderline high risk 200-499 High risk 500 or higher Very high risk Performed By: #### G FR, CRE #### [address] [address] MALBRon 08-14-2023 U Creatinine 69.3 mg/dL Normal 39.0-259.0 [facility] ([place]) Comment on above: Order Comment: rosas brown to Dr[facility] Performed By: #### M ALBR #### [address] [address] U Microalb 702 mcg/dL Normal [facility] ([place]) Comment on above: Order Comment: rosas brown to [facility] Performed By: #### M ALBR #### [address] [address] U Ratio Alb/Cre 10 mcg/mg Normal 0-30 [facility] ([place]) Comment on above: Order Comment: rosas brown to Dr[facility] Performed By: #### M ALBR #### [place] [address] [place], [place] [address] URICon 08-14-2023 Uric Acid Lvl 5.4 mg/dL Normal 3.5-7.2 [facility] ([place]) Comment on above: Order Comment: rosas brown to [facility] Performed By: #### U RICCO, LIPID, A1C, ADIFF, CBC, ANEU, CMP, GFR #### [address] [address] No Panel InformationOrdered By: Rocio Jara on 04-24-2023 Prostate Specific Antigen Total 1.51 ng/mL 0.0-4.0 [facility] Comment on above: This test was perfor med using the TPSA assay method for [employer] chemistry system. Values obtained with differentassay methods [...] 02/27/2023 10:13:40 AM Ordering Provider: MANASA Rahman [facility] ([place]) .GFRon 02-24-2023 GFR 94 ml/min/1.73sqm Normal [facility] ([place]) Comment on above: Result Comment: GFR Population [...] By: #### G , CRE #### Kina [address] [address] GFR Non- 77 ml/min/1.73sqm Normal [facility] ([place]) Comment on above: Result Comment: GFR Population [...] Performed By: #### G FR, CRE #### [place] [address] [place], [place] [address] CREon 02-24-2023 Creatinine [Mass/Vol] 0.97 mg/dL Normal 0.70-1.30 [facility] ([place]) Comment on above: Performed By: #### G , CRE #### [address] [address] LABORATORYOrdered By: SYSTEM SYSTEM on 02-24-2023 Creatinine [...] Invalid Interpretation Code 0.0 - 0.3 10^3/mcL Workflow SS Basophils/100 WBC (Bld) 0.6 % Invalid Interpretation Code 0.0 - 2.5 % Workflow SS Calcium [Mass/Vol] 8.9 mg/dL Invalid Interpretation Code 8.7 - 10.4 mg/dL ADM SS Chloride [Moles/Vol] 106 mmol/L Invalid Interpretation Code 98 - 110 mEq/L ADM SS CO2 [Moles/Vol] 34 mmol/L Invalid Interpretation Code 22 - 32 mEq/L ADM SS Creatinine [Mass/Vol] 0.85 mg/dL Invalid Interpretation Code 0.60 - 1.40 mg/dL ADM SS Electrolyte Balance 4.0 mEq/L Invalid Interpretation Code 4.0 - 15.0 mEq/L ADM SS Eosinophils (Bld) [#/Vol] 0.1 103/mcL Invalid Interpretation Code 0.0 - 0.7 10^3/mcL Workflow SS Eosinophils/100 WBC (Bld) 1.6 % Invalid Interpretation Code 0.0 - 6.0 % AH Workflow SS Erythrocyte distribution width (RBC) [Ratio] 14.9 % Invalid Interpretation Code 11.5 - 15.5 % AH Workflow SS GFR/1.73 sq M.predicted among blacks MDRD (S/P/Bld) [Vol rate/Area] ml/min/1.73sqm Invalid Interpretation Code Chemistry S GFR/1.73 sq M.predicted among non-blacks [...] Invalid Interpretation Code 32.0 - 36.0 G/dL AH Workflow SS MCV (RBC) [Entitic vol] 89.7 fL Invalid Interpretation Code 81.0 - 100.0 fL Workflow SS Monocytes (Bld) [#/Vol] 0.5 103/mcL Invalid Interpretation Code 0.1 - 1.4 10^3/mcL AH Workflow SS Monocytes/100 WBC (Bld) 7.9 % Invalid Interpretation Code 2.0 - 13.0 % AH Workflow SS Neutrophils (Bld) [#/Vol] 5.0 103/mcL Invalid Interpretation Code 2.3 - 8.1 10^3/mcL AH Workflow SS Neutrophils/100 WBC (Bld) 74.3 % Invalid Interpretation Code 50.0 - 75.0 % AH Workflow SS Platelet mean volume (Bld) [Entitic [...] Invalid Interpretation Code 4.5 - 10.8 10^3/mcL Workflow SS LABORATORYOrdered By: Demetri Ruiz on 11-10-2022 INR Coag (PPP) [Relative time] 1.0 {INR} Invalid Interpretation Code Auto Coag SS PT Coag (PPP) [Time] 12.1 s Invalid Interpretation Code 9.0 - 14.8 seconds Auto Coag SS Absolute lymphocyte countOrd ered By: Dr. Singh on 10-16-2022 Lymphocytes Auto (Unsp spec) [#/Vol] 0.84 10*3/uL 0.83-4.51 [facility] Basophil percentageOrdered B y: Dr. Singh on 10-16-2022 Basophils/100 WBC (Bld) 0.2 % 0-1 [facility] Chloride [Moles/Vol] 106 mmol/L 98-107 [facility] Eosinophils/100 WBC (Bld) 1.6 % 0-5 [facility] Glucose [Mass/Vol] 117 mg/dL 74-106 [facility] Comment on above: Fasting Glucose resu lt from 100 to 125 mg/dL suggests IMPAIRED HOMEOSTASIS per A.D.A. criteria. Neutrophils (Bld) [#/Vol] 4.2 10*3/uL 2.0-7.7 [facility] Neutrophils/100 WBC (Bld) 74.0 % 47-70 [facility] Potassium [Moles/Vol] 3.5 mmol/L 3.5-5.1 [facility] Sodium [Moles/Vol] 138 mmol/L 136-145 [facility] WBC (Bld) [#/Vol] 5.6 10*3/uL 4.4-11.0 [facility] Basophil percentageOrdered B y: ED PROVIDER on 10-16-2022 Basophil percentage 0-5 SEEN /hpf 0-5 [facility] Bilirubin Test strip Ql (U)O rdered By: ED PROVIDER on 10-16-2022 Bilirubin Ql (U) Negative Negative [facility] Blood erythrocytes count (nu mber/volume)Ordered By: Dr. Singh on 10-16-2022 RBC (Bld) [#/Vol] 4.50 10*6/uL 4.6-6.2 [facility] Blood hemoglobin measurement (mass/volume)Ordered By: Dr. Singh on 10-16-2022 Hemoglobin (Bld) [Mass/Vol] 13.4 g/dL 13.0-16.5 [facility] Blood lymphocytes/100 leukoc ytesOrdered By: Dr. Singh on 10-16-2022 Lymphocytes/100 WBC (Bld) 14.9 % 19-41 [facility] Blood monocytes/100 leukocyt esOrdered By: Dr. Singh on 10-16-2022 Monocytes/100 WBC (Bld) 8.9 % 0-10 [facility] Blood platelet mean volumeOr dered By: Dr. Singh on 10-16-2022 Platelet mean volume (Bld) [Entitic vol] 11.7 fL 6.2-12.0 [facility] Determination of erythrocyte mean corpuscular volume (MCV)Ordered By: Dr. Singh on 10-16-2022 MCV (RBC) [Entitic vol] 92.0 fL 80-94 [facility] Hematocrit Auto (Bld) [Volum e fraction]Ordered By: Dr. Singh on 10-16-2022 Hematocrit (Bld) [Volume fraction] 41.4 % 40-54 [facility] Ketones Test strip Ql (U)Ord ered By: ED PROVIDER on 10-16-2022 Ketones Ql (U) Negative Negative [facility] Laboratory - Chemistry and C hemistry - challengeOrdered By: Dr. Singh on 10-16-2022 CO2 [Moles/Vol] 29.0 mmol/L 21.0-32.0 [facility] Urea nitrogen/Creatinine [Mass ratio] 27.1 mg/mg 10-20 [facility] Laboratory - Hematology and Cell countsOrdered By: Dr. Singh on 10-16-2022 Erythrocyte distribution width (RBC) [Entitic vol] 48.7 fL 35.1-43.9 [facility] Erythrocyte distribution width (RBC) [Ratio] 14.4 % 11.6-14.6 [facility] Immature granulocytes/100 WBC (Bld) 0.400 % 0.0-0.9 [facility] Comment on above: IG% - Immature Granu locytes (promyelocytes, myelocytes and metamyelocytes) > 1% indicates that a LEFT SHIFT is Present. MCH (RBC) [Entitic mass] 29.8 pg 27.0-32.0 [facility] Nucleated RBC/100 WBC (Bld) [Ratio] 0 % 0-5 [facility] MCHC Auto (RBC) [Mass/Vol]Or dered By: Dr. Singh on 10-16-2022 MCHC (RBC) [Mass/Vol] 32.4 g/dL 32-36 [facility] Mucus LM Ql (Urine sed)Order ed By: ED PROVIDER on 10-16-2022 Mucus Ql (Urine sed) 0 SEEN /hpf [facility] Nitrite Test strip Ql (U)Ord ered By: ED PROVIDER on 10-16-2022 Nitrite Ql (U) Negative Negative [facility] No Panel InformationOrdered By: Dr. Singh on 10-16-2022 Estimated Creatinine Clearance Calc 73.68 ml/min [facility] Estimated GFR (MDRD) Amer 110 mL/min >60 [facility] Comment on above: GFR Calc Estimated GFR (MDRD) Non-Af Amer 91 mL/min >60 [facility] Comment on above: Non- GFR Calc Platelets bldOrdered By: Dr. Singh on 10-16-2022 Platelets (Bld) [#/Vol] 163 10*3/uL 150-450 [facility] Protein Test strip Ql (U)Ord ered By: ED PROVIDER on 10-16-2022 Protein Ql (U) 15 mg/dl Negative [facility] Serum or plasma calcium nallely urement (mass/volume)Ordered By: Dr. Singh on 10-16-2022 Calcium [Mass/Vol] 8.6 mg/dL 8.5-10.1 [facility] Serum or plasma creatinine m easurement (mass/volume)Ordered By: Dr. Singh on 10-16-2022 Creatinine [Mass/Vol] 0.89 mg/dL 0.70-1.30 [facility] Comment on above: The validity of the calculated GFR & GFRAA in patients over 70 years has not been determined. Clinical correlation is essential. Serum or plasma urea nitroge n measurement (mass/volume)Ordered By: Dr. Singh on 10-16-2022 Urea nitrogen [Mass/Vol] 24 mg/dL 7-18 [facility] Squamous epithelial cells de tection in urine sediment by light microscopyOrdered By: ED PROVIDER on 10-16-2022 Epithelial cells.squamous LM Ql (Urine sed) 0 SEEN /hpf 0-5 [facility] Thin prep Papanicolaou smear with manual screeningOrdered By: Dr. Singh on 10-16-2022 Thin prep Papanicolaou smear with manual screening 3 5-15 [facility] Urine blood detectionOrdered By: ED PROVIDER on 10-16-2022 RBC Ql (U) 50 /ul Negative [facility] RBC Ql (U) 0 SEEN /hpf 0-5 [facility] Urine clarityOrdered By: ED PROVIDER on 10-16-2022 Clarity (U) Clear Clear [facility] Urine color determinationOrd ered By: ED PROVIDER on 10-16-2022 Color (U) Yellow Yellow [facility] Urine glucose detectionOrder ed By: ED PROVIDER on 10-16-2022 Glucose Ql (U) Normal mg/dl Normal [facility] Urine leukocyte esterase det ection by dipstickOrdered By: ED PROVIDER on 10-16-2022 Leukocyte esterase Test strip Ql (U) 25 /ul Negative [facility] Urine pHOrdered By: ED PROVI TERESA on 10-16-2022 pH (U) 5.0 [pH] 5.0 - 8.0 [facility] Urine sediment bacteria coun t by microscopy (number/high power field)Ordered By: ED PROVIDER on 10-16-2022 Bacteria LM.HPF (Urine sed) [#/Area] 0 /[HPF] None Seen [facility] Urine specific gravity measu rementOrdered By: ED PROVIDER on 10-16-2022 Specific gravity (U) [Rel density] 1.020 1.002-1.030 [facility] Urobilinogen Auto test strip Ql (U)Ordered By: ED PROVIDER on 10-16-2022 Urobilinogen Ql (U) Normal mg/dl Normal [facility] Absolute lymphocyte countOrd ered By: nAna Jones on 09-12-2022 Lymphocytes Auto (Unsp spec) [#/Vol] 1.45 10*3/uL 0.83-4.51 [facility] Basophil percentageOrdered B y: Anna Jones on 09-12-2022 Basophils/100 WBC (Bld) 0.5 % 0-1 [facility] Eosinophils/100 WBC (Bld) 1.1 % 0-5 [facility] Neutrophils (Bld) [#/Vol] 6.0 10*3/uL 2.0-7.7 [facility] Neutrophils/100 WBC (Bld) 72.4 % 47-70 [facility] WBC (Bld) [#/Vol] 8.3 10*3/uL 4.4-11.0 [facility] Blood erythrocytes count (nu mber/volume)Ordered By: Anna Jones on 09-12-2022 RBC (Bld) [#/Vol] 5.00 10*6/uL 4.6-6.2 [facility] Blood hemoglobin measurement (mass/volume)Ordered By: Anna Jones on 09-12-2022 Hemoglobin (Bld) [Mass/Vol] 14.6 g/dL 13.0-16.5 [facility] Blood lymphocytes/100 leukoc ytesOrdered By: Anna Jones on 09-12-2022 Lymphocytes/100 WBC (Bld) 17.5 % 19-41 [facility] Blood monocytes/100 leukocyt esOrdered By: Anna Jones on 09-12-2022 Monocytes/100 WBC (Bld) 8.0 % 0-10 [facility] Blood platelet mean volumeOr dered By: Anna Jones on 09-12-2022 Platelet mean volume (Bld) [Entitic vol] 11.4 fL 6.2-12.0 [facility] Determination of erythrocyte mean corpuscular volume (MCV)Ordered By: Anna Jones on 09-12-2022 MCV (RBC) [Entitic vol] 90.8 fL 80-94 [facility] Hematocrit Auto (Bld) [Volum e fraction]Ordered By: Anna Jones on 09-12-2022 Hematocrit (Bld) [Volume fraction] 45.4 % 40-54 [facility] Laboratory - Chemistry and C hemistry - challengeOrdered By: Anna Jones on 09-12-2022 Free T4 [Mass/Vol] 0.96 ng/dL 0.76-1.46 [facility] Laboratory - Hematology and Cell countsOrdered By: Anna Jones on 09-12-2022 Erythrocyte distribution width (RBC) [Entitic vol] 44.9 fL 35.1-43.9 [facility] Erythrocyte distribution width (RBC) [Ratio] 13.4 % 11.6-14.6 [facility] Immature granulocytes/100 WBC (Bld) 0.500 % 0.0-0.9 [facility] Comment on above: IG% - Immature Granu locytes (promyelocytes, myelocytes and metamyelocytes) > 1% indicates that a LEFT SHIFT is Present. MCH (RBC) [Entitic mass] 29.2 pg 27.0-32.0 [facility] Nucleated RBC/100 WBC (Bld) [Ratio] 0 % 0-5 [facility] MCHC Auto (RBC) [Mass/Vol]Or dered By: Anna Jones on 09-12-2022 MCHC (RBC) [Mass/Vol] 32.2 g/dL 32-36 [facility] No Panel InformationOrdered By: Anna Jones on 09-12-2022 Thyroid Stimulating Hormone (TSH) 1.32 uIU/mL 0.358-3.74 [facility] Platelets bldOrdered By: Gage Jones on 09-12-2022 Platelets (Bld) [#/Vol] 220 10*3/uL 150-450 [facility] Basophil percentageon 2021 Chloride [Moles/Vol] 103 mmol/L 98-107 [facility] Work Phone: Glucose [Mass/Vol] 93 mg/dL 74-106 [facility] Work Phone: Potassium [Moles/Vol] 3.6 mmol/L 3.5-5.1 [facility] Work Phone: Sodium [Moles/Vol] 137 mmol/L 136-145 [facility] Work Phone: Laboratory - Chemistry and C hemistry - challengeon 05-26-2022 CO2 [Moles/Vol] 28.0 mmol/L 21.0-32.0 [facility] Work Phone: Natriuretic peptide B (Bld) [Mass/Vol] 14.0 pg/mL 0-100 [facility] Work Phone: Urea nitrogen/Creatinine [Mass ratio] 25.0 mg/mg 10-20 [facility] Work Phone: No Panel Informationon 05-26 Estimated GFR (MDRD) Amer 132 mL/min >60 [facility] Work Phone: Comment on above: GFR Calc Estimated GFR (MDRD) Non-Af Amer 109 mL/min >60 [facility] Work Phone: Comment on above: Non- GFR Calc Serum or plasma calcium nallely urement (mass/volume)on 05-26-2022 Calcium [Mass/Vol] 9.5 mg/dL 8.5-10.1 [facility] Work Phone: Serum or plasma creatinine m easurement (mass/volume)on 05-26-2022 Creatinine [Mass/Vol] 0.76 mg/dL 0.70-1.30 [facility] Work Phone: Comment on above: The validity of the calculated GFR & GFRAA in patients over 70 years has not been determined. Clinical correlation is essential. Serum or plasma urea nitroge n measurement (mass/volume)on 05-26-2022 Urea nitrogen [Mass/Vol] 19 mg/dL 7-18 [facility] Work Phone: [phone] Thin prep Papanicolaou smear with manual screeningon 05-26-2022 Thin prep Papanicolaou smear with manual screening 6 5-15 [facility] Work Phone: No Panel Informationon 05-17 Troponin I High Sensitivity 9 pg/mL 3.0-78.0 [facility] Work Phone: Comment on above: Please Note: New [place] t Units and Gender Specific Reference Ranges. For more information see Policy Stat Procedure [place] High Sensitivity Troponin (TNIH) and attachments. Absolute lymphocyte counton 05-16-2022 Lymphocytes Auto (Unsp spec) [#/Vol] 1.23 10*3/uL 0.83-4.51 [facility] Work Phone: Basophil percentageon 2021 Basophil percentage 10-25 SEEN /hpf 0-5 [facility] Work Phone: Basophils/100 WBC (Bld) 0.4 % 0-1 [facility] Work Phone: Chloride [Moles/Vol] 107 mmol/L 98-107 [facility] Work Phone: Eosinophils/100 WBC (Bld) 1.2 % 0-5 [facility] Work Phone: Glucose [Mass/Vol] 104 mg/dL 74-106 [facility] Work Phone: Comment on above: Fasting Glucose resu lt from 100 to 125 mg/dL suggests IMPAIRED HOMEOSTASIS per A.D.A. criteria. Neutrophils (Bld) [#/Vol] 5.6 10*3/uL 2.0-7.7 [facility] Work Phone: Neutrophils/100 WBC (Bld) 73.5 % 47-70 [facility] Work Phone: Potassium [Moles/Vol] 3.4 mmol/L 3.5-5.1 [facility] Work Phone: Sodium [Moles/Vol] 143 mmol/L 136-145 [facility] Work Phone: WBC (Bld) [#/Vol] 7.6 10*3/uL 4.4-11.0 [facility] Work Phone: Bilirubin Test strip Ql (U)o n 05-16-2022 Bilirubin Ql (U) Negative Negative [facility] Work Phone: Blood erythrocytes count (nu mber/volume)on 05-16-2022 RBC (Bld) [#/Vol] 4.14 10*6/uL 4.6-6.2 [facility] Work Phone: Blood hemoglobin measurement (mass/volume)on 05-16-2022 Hemoglobin (Bld) [Mass/Vol] 12.4 g/dL 13.0-16.5 [facility] Work Phone: Blood lymphocytes/100 leukoc yteson 05-16-2022 Lymphocytes/100 WBC (Bld) 16.1 % 19-41 [facility] Work Phone: Blood monocytes/100 leukocyt eson 05-16-2022 Monocytes/100 WBC (Bld) 8.4 % 0-10 [facility] Work Phone: Blood platelet mean volumeon 05-16-2022 Platelet mean volume (Bld) [Entitic vol] 11.7 fL 6.2-12.0 [facility] Work Phone: Determination of erythrocyte mean corpuscular volume (MCV)on 05-16-2022 MCV (RBC) [Entitic vol] 90.6 fL 80-94 [facility] Work Phone: Hematocrit Auto (Bld) [Volum e fraction]on 05-16-2022 Hematocrit (Bld) [Volume fraction] 37.5 % 40-54 [facility] Work Phone: Hyaline casts LM.LPF (Urine sed) [#/Area]on 05-16-2022 Hyaline casts (Urine sed) [#/Area] 0 /[LPF] 0-5 [facility] Work Phone: Ketones Test strip Ql (U)on 05-16-2022 Ketones Ql (U) Negative Negative [facility] Work Phone: Laboratory - Chemistry and C hemistry - challengeon 05-16-2022 CO2 [Moles/Vol] 31.0 mmol/L 21.0-32.0 [facility] Work Phone: Magnesium [Mass/Vol] 1.8 mg/dL 1.6-2.6 [facility] Work Phone: [phone] Urea nitrogen/Creatinine [Mass ratio] 36.0 mg/mg 10-20 [facility] Work Phone: [phone] Laboratory - Hematology and Cell countson 05-16-2022 Erythrocyte distribution width (RBC) [Entitic vol] 45.4 fL 35.1-43.9 [facility] Work Phone: [phone] Erythrocyte distribution width (RBC) [Ratio] 13.6 % 11.6-14.6 [facility] Work Phone: [phone] Immature granulocytes/100 WBC (Bld) 0.400 % 0.0-0.9 [facility] Work Phone: [phone] Comment on above: IG% - Immature Granu locytes (promyelocytes, myelocytes and metamyelocytes) > 1% indicates that a LEFT SHIFT is Present. MCH (RBC) [Entitic mass] 30.0 pg 27.0-32.0 [facility] Work Phone: [phone] Nucleated RBC/100 WBC (Bld) [Ratio] 0 % 0-5 [facility] Work Phone: [phone] MCHC Auto (RBC) [Mass/Vol]on 05-16-2022 MCHC (RBC) [Mass/Vol] 33.1 g/dL 32-36 [facility] Work Phone: [phone] Mucus LM Ql (Urine sed)on Mucus Ql (Urine sed) 0 SEEN /hpf [facility] Work Phone: [phone] Nitrite Test strip Ql (U)on 05-16-2022 Nitrite Ql (U) Negative Negative [facility] Work Phone: [phone] No Panel Informationon 05-16 D-Dimer Quantitative (PE/DVT) 0.54 FEU/ug/m 0.27-0.49 [facility] Work Phone: [phone] Comment on above: D-Dimer ELEVATED (>0 .49): Additional studies and clinicalassessments are indicated to conclude diagnosis of:Deep Vein Thrombosis (DVT) or Pulmonary Embolism (PE)CRITICAL VALUE VERIFIED. CALLED TO Sheridan MINER RN ER05/16/22 Bambi Torres.RESULTS READ BACK BY SAME. Estimated Creatinine Clearance Calc 85.20 ml/min [facility] Work Phone: Estimated GFR (MDRD) Amer 129 mL/min >60 [facility] Work Phone: Comment on above: GFR Calc Estimated GFR (MDRD) Non-Af Amer 106 mL/min >60 [facility] Work Phone: Comment on above: Non- GFR Calc Platelets bldon 05-16-2022 Platelets (Bld) [#/Vol] 217 10*3/uL 150-450 [facility] Work Phone: Protein Test strip Ql (U)on 05-16-2022 Protein Ql (U) Negative Negative [facility] Work Phone: [phone] Serum or plasma calcium nallely urement (mass/volume)on 05-16-2022 Calcium [Mass/Vol] 8.4 mg/dL 8.5-10.1 [facility] Work Phone: [phone] Serum or plasma creatinine m easurement (mass/volume)on 05-16-2022 Creatinine [Mass/Vol] 0.78 mg/dL 0.70-1.30 [facility] Work Phone: Comment on above: The validity of the calculated GFR & GFRAA in patients over 70 years has not been determined. Clinical correlation is essential. Serum or plasma urea nitroge n measurement (mass/volume)on 05-16-2022 Urea nitrogen [Mass/Vol] 28 mg/dL 7-18 [facility] Work Phone: [phone] Squamous epithelial cells de tection in urine sediment by light microscopyon 05-16-2022 Epithelial cells.squamous LM Ql (Urine sed) 0-5 SEEN /hpf 0-5 [facility] Work Phone: Thin prep Papanicolaou smear with manual screeningon 05-16-2022 Thin prep Papanicolaou smear with manual screening 5 5-15 [facility] Work Phone: [phone] Urine blood detectionon RBC Ql (U) Negative Negative [facility] Work Phone: RBC Ql (U) 0 SEEN /hpf 0-5 [facility] Work Phone: Urine clarityon 05-16-2022 Clarity (U) Sl. Cloudy Clear [facility] Work Phone: Urine color determinationon 05-16-2022 Color (U) Yellow Yellow [facility] Work Phone: Urine glucose detectionon Glucose Ql (U) Normal mg/dl Normal [facility] Work Phone: Urine leukocyte esterase det ection by dipstickon 05-16-2022 Leukocyte esterase Test strip Ql (U) 500 /ul Negative [facility] Work Phone: Urine pHon 05-16-2022 pH (U) 7.0 [pH] 5.0 - 8.0 [facility] Work Phone: Urine sediment bacteria coun t by microscopy (number/high power field)on 05-16-2022 Bacteria LM.HPF (Urine sed) [#/Area] 1 /[HPF] None Seen [facility] Work Phone: Urine specific gravity measu rementon 05-16-2022 Specific gravity (U) [Rel density] 1.015 1.002-1.030 [facility] Work Phone: Urobilinogen Auto test strip Ql (U)on 05-16-2022 Urobilinogen Ql (U) 4 mg/dl Normal [facility] Work Phone: Culture, urine Bacteria identified Cx Nom (U) Positive [facility] Work Phone: Vital Signs Date Time Vital Sign Value Performing Clinician Facility 01-02-2025 07:37-0400 Body mass index (BMI) [Ratio] 46.1 kg/m2 Dr. Manasa Zendejas DO Work Phone: [facility] 01-02-2025 07:37-0400 Body temperature 97.6 [degF] Dr. Manasa Zendejas DO Work Phone: [facility] 01-02-2025 07:37-0400 Body weight 129.[address] Manasa Zendejas DO Work Phone: [facility] 01-02-2025 07:37-0400 Diastolic blood pressure 70 mm[Hg] Dr. Manasa Zendejas DO Work Phone: [facility] 01-02-2025 07:37-0400 Heart rate 77 /min Dr. Manasa Zendejas DO Work Phone: [facility] 01-02-2025 07:37-0400 Respiratory rate 16 /min Dr. Manasa Zendejas DO Work Phone: [facility] 01-02-2025 07:37-0400 SaO2% (BldA) [Mass fraction] 98 % Dr. Manasa Zendejas DO Work Phone: [facility] 01-02-2025 07:37-0400 Systolic blood pressure 102 mm[Hg] Dr. Manasa Zendejas DO Work Phone: [facility] 12-26-2024 13:29-0400 Body height 167.[address] Manasa Zendejas DO Work Phone: [facility] 12-26-2024 13:29-0400 Body mass index (BMI) [Ratio] 46.7 kg/m2 Dr. Manasa Zendejas DO Work Phone: [facility] 12-26-2024 13:29-0400 Body weight 131.[address] Manasa Zendejas DO Work Phone: [facility] 12-26-2024 13:29-0400 Diastolic blood pressure 69 mm[Hg] Dr. Manasa Zendejas DO Work Phone: [facility] 12-26-2024 13:29-0400 Heart rate 68 /min Dr. Manasa Zendejas DO Work Phone: [facility] 12-26-2024 13:29-0400 Respiratory rate 18 /min Dr. Manasa Zendejas DO Work Phone: [facility] 12-26-2024 13:29-0400 SaO2% (BldA) [Mass fraction] 96 % Dr. Manasa Zendejas DO Work Phone: [facility] 12-26-2024 13:29-0400 Systolic blood pressure 119 mm[Hg] Dr. Manasa Zendejas DO Work Phone: [facility] 12-19-2024 08:24-0400 Body height 167.[address] Manasa Zendejas DO Work Phone: [facility] 12-19-2024 08:24-0400 Body weight 133.[address] Manasa Zendejas DO Work Phone: [facility] 12-19-2024 08:24-0400 Heart rate 77 /min Dr. Manasa Zendejas DO Work Phone: [facility] 12-19-2024 08:24-0400 SaO2% (BldA) [Mass fraction] 98 % Dr. Manasa Zendejas DO Work Phone: [facility] 10-25-2024 07:50-0400 Body height 167.[address] Manasa Zendejas DO Work Phone: [facility] 10-25-2024 07:50-0400 Body mass index (BMI) [Ratio] 47.4 kg/m2 Dr. Manasa Zendejas DO Work Phone: [facility] 10-25-2024 07:50-0400 Body temperature 97.4 [degF] Dr. Manasa Zendejas DO Work Phone: [facility] 10-25-2024 07:50-0400 Body weight 133.[address] Manasa Zendejas DO Work Phone: [facility] 10-25-2024 07:50-0400 Diastolic blood pressure 82 mm[Hg] Dr. Manasa Zendejas DO Work Phone: [facility] 10-25-2024 07:50-0400 Heart rate 60 /min Dr. Manasa Zendejas DO Work Phone: [facility] 10-25-2024 07:50-0400 Respiratory rate 20 /min Dr. Manasa Zendejas DO Work Phone: [facility] 10-25-2024 07:50-0400 SaO2% (BldA) [Mass fraction] 96 % Dr. Manasa Zendejas DO Work Phone: [facility] 10-25-2024 07:50-0400 Systolic blood pressure 126 mm[Hg] Dr. Manasa Zendejas DO Work Phone: [facility] 10-07-2024 08:02-0400 Body height 167.[address] Manasa Zendejas DO Work Phone: [facility] 10-07-2024 08:02-0400 Body mass index (BMI) [Ratio] 47.6 kg/m2 Dr. Manasa Zendejas DO Work Phone: [facility] 10-07-2024 08:02-0400 Body temperature 97.3 [degF] Dr. Manasa Zendejas DO Work Phone: [facility] 10-07-2024 08:02-0400 Body weight 133.[address] Manasa Zendejas DO Work Phone: [facility] 10-07-2024 08:02-0400 Diastolic blood pressure 76 mm[Hg] Dr. Manasa Zendejas DO Work Phone: [facility] 10-07-2024 08:02-0400 Heart rate 59 /min Dr. Mnaasa Zendejas DO Work Phone: [facility] 10-07-2024 08:02-0400 Respiratory rate 20 /min Dr. Manasa Zendejas DO Work Phone: [facility] 10-07-2024 08:02-0400 SaO2% (BldA) [Mass fraction] 95 % Dr. Manasa Zendejas DO Work Phone: [facility] 10-07-2024 08:02-0400 Systolic blood pressure 113 mm[Hg] Dr. Manasa Zendejas DO Work Phone: [facility] 07-02-2024 09:58-0500 Body mass index (BMI) [Ratio] 46.3 kg/m2 Dr. Manasa Zendejas DO Work Phone: [facility] 07-02-2024 09:58-0500 Body temperature 98.2 [degF] Dr. Manasa Zendejas DO Work Phone: [facility] 07-02-2024 09:58-0500 Body weight 130.[address] Manasa Zendejas DO Work Phone: [facility] 07-02-2024 09:58-0500 Diastolic blood pressure 72 mm[Hg] Dr. Manasa Zendejas DO Work Phone: [facility] 07-02-2024 09:58-0500 Heart rate 82 /min Dr. Manasa Zendejas DO Work Phone: [facility] 07-02-2024 09:58-0500 Respiratory rate 18 /min Dr. Manasa Zendejas DO Work Phone: [facility] 07-02-2024 09:58-0500 SaO2% (BldA) [Mass fraction] 99 % Dr. Manasa Zendejas DO Work Phone: [facility] 07-02-2024 09:58-0500 Systolic blood pressure 135 mm[Hg] Dr. Manasa Zendejas DO Work Phone: [facility] 06-21-2024 07:41-0500 Body mass index (BMI) [Ratio] 46.7 kg/m2 Dr. Manasa Zendejas DO Work Phone: [facility] 06-21-2024 07:41-0500 Body temperature 97.7 [degF] Dr. Manasa Zendejas DO Work Phone: [facility] 06-21-2024 07:41-0500 Body weight 131.[address] Manasa Zendejas DO Work Phone: [facility] 06-21-2024 07:41-0500 Diastolic blood pressure 74 mm[Hg] Dr. Manasa Zendejas DO Work Phone: [facility] 06-21-2024 07:41-0500 Heart rate 75 /min Dr. Manasa Zendejas DO Work Phone: [facility] 06-21-2024 07:41-0500 Respiratory rate 20 /min Dr. Manasa Zendejas DO Work Phone: [facility] 06-21-2024 07:41-0500 SaO2% (BldA) [Mass fraction] 93 % Dr. Manasa Zendejas DO Work Phone: [facility] 06-21-2024 07:41-0500 Systolic blood pressure 111 mm[Hg] Dr. Manasa Zendejas DO Work Phone: [facility] 06-13-2024 09:10-0500 Diastolic Blood Pressure Non-Invasive 95 mm[Hg] RICKEY HUNG MD [facility] 06-13-2024 09:10-0500 Heart rate 58 /min RICKEY HUNG MD [facility] 06-13-2024 09:10-0500 Respiratory rate 16 /min RICKEY HUNG MD [facility] 06-13-2024 09:10-0500 Systolic Blood Pressure Non-Invasive 114 mm[Hg] RICKEY HUNG MD [facility] 06-13-2024 08:58-0500 Diastolic Blood Pressure Non-Invasive 69 mm[Hg] RICKEY HUNG MD [facility] 06-13-2024 08:58-0500 Heart rate 69 /min RICKEY HUNG MD [facility] 06-13-2024 08:58-0500 Respiratory rate 16 /min RICKEY HUNG MD [facility] 06-13-2024 08:58-0500 Systolic Blood Pressure Non-Invasive 128 mm[Hg] RICKEY HUNG MD [facility] 06-13-2024 08:53-0500 Diastolic Blood Pressure Non-Invasive 107 mm[Hg] RICKEY HUNG MD [facility] 06-13-2024 08:53-0500 Heart rate 81 /min RICKEY HUNG MD [facility] 06-13-2024 08:53-0500 Respiratory rate 16 /min RICKEY HUNG MD [facility] 06-13-2024 08:53-0500 Systolic Blood Pressure Non-Invasive 145 mm[Hg] RICKEY HUNG MD [facility] 06-13-2024 08:08-0500 Blood Pressure Cuff Size RICKEY HUNG MD [facility] 06-13-2024 08:08-0500 Blood Pressure Location RICKEY HUNG MD [facility] 06-13-2024 08:08-0500 Blood Pressure Method RICKEY HUNG MD [facility] 06-13-2024 08:08-0500 Body height 152.4 cm RICKEY HUNG MD [facility] 06-13-2024 08:08-0500 Body weight 130.5 kg RICKEY HUNG MD [facility] 06-13-2024 08:08-0500 Body weight 56.19 kg/m2 RICKEY HUNG MD [facility] 06-13-2024 08:08-0500 Heart rate 64 /min RICKEY HUNG MD [facility] 01-30-2024 08:10-0400 Diastolic Blood Pressure Non-Invasive 67 mm[Hg] RICKEY HUNG MD [facility] 01-30-2024 08:10-0400 Heart rate 54 /min RICKEY HUNG MD [facility] 01-30-2024 08:10-0400 Respiratory rate 14 /min RICKEY HUNG MD [facility] 01-30-2024 08:10-0400 Systolic Blood Pressure Non-Invasive 104 mm[Hg] RICKEY HUNG MD [facility] 01-30-2024 08:06-0400 Diastolic Blood Pressure Non-Invasive 65 mm[Hg] RICKEY HUNG MD [facility] 01-30-2024 08:06-0400 Heart rate 54 /min RICKEY HUNG MD [facility] 01-30-2024 08:06-0400 Respiratory rate 14 /min RICKEY HUNG MD [facility] 01-30-2024 08:06-0400 Systolic Blood Pressure Non-Invasive 114 mm[Hg] RICKEY HUNG MD [facility] 01-30-2024 07:59-0400 Diastolic Blood Pressure Non-Invasive 77 mm[Hg] RICKEY HUNG MD [facility] 01-30-2024 07:59-0400 Heart rate 55 /min RICKEY HUNG MD [facility] 01-30-2024 07:59-0400 Respiratory rate 16 /min RICKEY HUNG MD [facility] 01-30-2024 07:59-0400 Systolic Blood Pressure Non-Invasive 150 mm[Hg] RICKEY HUNG MD [facility] 01-30-2024 07:55-0400 Heart rate 59 /min RICKEY HUNG MD [facility] 01-30-2024 07:17-0400 Body height 167 cm RICKEY HUNG MD [facility] 01-30-2024 07:17-0400 Body weight 129 kg RICKEY HUNG MD [facility] 01-30-2024 07:17-0400 Body weight 46.25 kg/m2 RICKEY HUNG MD [facility] 01-30-2024 07:17-0400 Heart rate 56 /min RICKEY HUNG MD [facility] 07-27-2023 10:39-0500 Diastolic blood pressure 71 mm[Hg] 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 07-27-2023 10:21-0500 Heart rate 63 /min MARCOS BANDA IT NETWORK ARCHITECT-OFFICE CLERK ROUTINE [facility] 07-27-2023 10:21-0500 Respiratory rate 18 /min MARCOSMayo BANDA IT NETWORK ARCHITECT-OFFICE CLERK ROUTINE [facility] 07-27-2023 10:21-0500 Systolic Blood Pressure Non-Invasive 112 mm[Hg] MARCOS BANDA IT NETWORK ARCHITECT-OFFICE CLERK ROUTINE [facility] 07-27-2023 10:16-0500 Diastolic Blood Pressure Non-Invasive 66 mm[Hg] MARCOS BANDA IT NETWORK ARCHITECT-OFFICE CLERK ROUTINE [facility] 07-27-2023 10:16-0500 Heart rate 57 /min MARCOS BANDA IT NETWORK ARCHITECT-OFFICE CLERK ROUTINE [facility] 07-27-2023 10:16-0500 Systolic Blood Pressure Non-Invasive 115 mm[Hg] MARCOS BANDA IT NETWORK ARCHITECT-OFFICE CLERK ROUTINE [facility] 07-27-2023 09:17-0500 Body height 167.6 cm MARCOS BANDA IT NETWORK ARCHITECT-OFFICE CLERK ROUTINE [facility] 07-27-2023 09:17-0500 Body weight 122.6 kg MARCOS BANDA IT NETWORK ARCHITECT-OFFICE CLERK ROUTINE [facility] 07-27-2023 09:17-0500 Body weight 43.65 kg/m2 MARCOS BANDA IT NETWORK ARCHITECT-OFFICE CLERK ROUTINE [facility] 07-27-2023 09:17-0500 Heart rate 62 /min MARCOS SOLO IT NETWORK ARCHITECT-OFFICE CLERK ROUTINE [facility] 03-15-2023 09:23-0400 Blood Pressure Cuff Size GOKUL JANG IT NETWORK ARCHITECT-NODULIZER [facility] 03-15-2023 09:23-0400 Blood Pressure Location GOKUL JANG [employer] NETWORK ARCHITECT-NODULIZER [facility] 03-15-2023 09:23-0400 Blood Pressure Method GOKUL JANG [employer] NETWORK ARCHITECT-NODULIZER [facility] 03-15-2023 09:23-0400 Diastolic Blood Pressure Non-Invasive 82 1 GOKUL JANG IT NETWORK ARCHITECT-NODULIZER [facility] 03-15-2023 09:23-0400 Heart rate 56 /min GOKUL JANG IT NETWORK ARCHITECT-NODULIZER [facility] 03-15-2023 09:23-0400 Respiratory rate 11 /min GOKUL JANG IT NETWORK ARCHITECT-NODULIZER [facility] 03-15-2023 09:23-0400 Systolic Blood Pressure Non-Invasive 115 1 GOKUL JANG IT NETWORK ARCHITECT-NODULIZER [facility] 03-15-2023 09:18-0400 Diastolic Blood Pressure Non-Invasive 71 1 GOKUL JANG IT NETWORK ARCHITECT-NODULIZER [facility] 03-15-2023 09:18-0400 Heart rate 54 /min GOKUL JANG IT NETWORK ARCHITECT-NODULIZER [facility] 03-15-2023 09:18-0400 Respiratory rate 14 /min GOKUL JANG IT NETWORK ARCHITECT-NODULIZER [facility] 03-15-2023 09:18-0400 Systolic Blood Pressure Non-Invasive 127 1 GOKUL JANG IT NETWORK ARCHITECT-NODULIZER [facility] 03-15-2023 09:16-0400 Blood Pressure Cuff Size GOKUL JANG IT NETWORK ARCHITECT-NODULIZER [facility] 03-15-2023 09:16-0400 Blood Pressure Location GOKUL JANG IT NETWORK ARCHITECT-NODULIZER [facility] 03-15-2023 09:16-0400 Blood Pressure Method GOKUL JANG IT NETWORK ARCHITECT-NODULIZER [facility] 03-15-2023 09:16-0400 Diastolic Blood Pressure Non-Invasive 76 1 GOKUL JANG IT NETWORK ARCHITECT-NODULIZER [facility] 03-15-2023 09:16-0400 Heart rate 57 /min GOKUL JANG IT NETWORK ARCHITECT-NODULIZER [facility] 03-15-2023 09:16-0400 Respiratory rate 17 /min GOKUL JANG IT NETWORK ARCHITECT-NODULIZER [facility] 03-15-2023 09:16-0400 Systolic Blood Pressure Non-Invasive 129 1 GOKUL JANG IT NETWORK ARCHITECT-NODULIZER [facility] 03-15-2023 09:06-0400 Heart rate 62 /min GOKUL JANG IT NETWORK ARCHITECT-NODULIZER [facility] 03-15-2023 08:24-0400 Blood Pressure Location GOKUL JANG [employer] NETWORK ARCHITECT-NODULIZER [facility] 03-15-2023 08:24-0400 Blood Pressure Method GOKUL JANG IT NETWORK ARCHITECT-NODULIZER [facility] 03-15-2023 08:24-0400 Body height 167.6 cm GOKUL JANG IT NETWORK ARCHITECT-NODULIZER [facility] 03-15-2023 08:24-0400 Body weight 116.8 kg GOKUL JANG IT NETWORK ARCHITECT-NODULIZER [facility] 03-15-2023 08:24-0400 Body weight 41.58 kg/m2 GOKUL OLSONWITT IT NETWORK ARCHITECT-NODULIZER [facility] 02-09-2023 09:55-0400 Body height 167.[address] Manasa Zendejas Work Phone: [facility] 02-09-2023 09:55-0400 Body mass index (BMI) [Ratio] 41.9 kg/m2 Dr. Manasa Zendejas Work Phone: [facility] 02-09-2023 09:55-0400 Body weight 117.[address] Manasa Zendejas Work Phone: [facility] 02-09-2023 09:55-0400 Diastolic blood pressure 77 mm[Hg] Dr. Manasa Zendejas Work Phone: [facility] 02-09-2023 09:55-0400 Heart rate 56 /min Dr. Manasa Zendejas Work Phone: [facility] 02-09-2023 09:55-0400 Respiratory rate 18 /min Dr. Manasa Zendejas Work Phone: [facility] 02-09-2023 09:55-0400 Systolic blood pressure 116 mm[Hg] Dr. Manasa Zendejas Work Phone: [facility] 11-11-2022 09:18-0400 Diastolic Blood Pressure Non-Invasive 66 1 HERVE OLIVAREZ MD [facility] 11-11-2022 09:18-0400 Heart rate 56 /min HERVE OLIVAREZ MD [facility] 11-11-2022 09:18-0400 Respiratory rate 18 /min HERVE OLIVAREZ MD [facility] 11-11-2022 09:18-0400 Systolic Blood Pressure Non-Invasive 112 1 HERVE OLIVAREZ MD [facility] 11-11-2022 03:30-0400 Body temperature 98.24 [degF] HERVE OLIVAREZ MD [address] [place] [address] 11-11-2022 03:30-0400 Diastolic Blood Pressure Non-Invasive 74 1 HERVE OLIVAREZ MD [address] [place] [address] 11-11-2022 03:30-0400 Heart rate 54 /min HERVE OLIVAREZ MD [address] [place] [address] 11-11-2022 03:30-0400 Reason For Taking VItal Signs HERVE OLIVAREZ MD [address] [place] [address] 11-11-2022 03:30-0400 Respiratory rate 16 /min HERVE OLIVAREZ MD [address] [place] [address] 11-11-2022 03:30-0400 Systolic Blood Pressure Non-Invasive 111 1 HERVE OLIVAREZ MD [address] [place] [address] 11-11-2022 02:16-0400 Heart rate 66 /min HERVE OLIVAREZ MD [address] [place] [address] 11-11-2022 00:09-0400 Heart rate 60 /min HERVE OLIVAREZ MD [address] [place] [address] 11-10-2022 21:59-0400 Heart rate 61 /min HERVE OLIVAREZ MD [address] [place] [address] 11-10-2022 19:47-0400 Body temperature 99.14 [degF] HERVE OLIVAREZ MD [address] [place] [address] 11-10-2022 19:47-0400 Diastolic Blood Pressure Non-Invasive 67 1 HERVE OLIVAREZ MD [address] [place] [address] 11-10-2022 19:47-0400 Respiratory rate 18 /min HERVE OLIVAREZ MD [address] [place] [address] 11-10-2022 19:47-0400 Systolic Blood Pressure Non-Invasive 90 1 HERVE OLIVAREZ MD [address] [place] [address] 11-10-2022 18:13-0400 Heart rate 68 /min HERVE OLIVAREZ MD [address] [place] [address] 11-10-2022 11:10-0400 Body temperature 97.16 [degF] HERVE OLIVAREZ MD [address] [place] [address] 11-10-2022 11:05-0400 Respiratory Rate - Anes 40 br/min HERVE OLIVAREZ MD [address] [place] [address] 11-10-2022 11:00-0400 Respiratory Rate - Anes 26 br/min HERVE OLIVAREZ MD [address] [place] [address] 11-10-2022 10:55-0400 Respiratory Rate - Anes 13 br/min HERVE OLIVAREZ MD [address] [place] [address] 11-10-2022 10:45-0400 Body temperature 95.4 [degF] HERVE OLIVAREZ MD [address] [place] [address] 11-10-2022 10:40-0400 Body temperature 95.43 [degF] HERVE OLIVAREZ MD [address] [place] [address] 11-10-2022 10:35-0400 Body temperature 95.43 [degF] HERVE OLIVAREZ MD [address] [place] [address] 11-10-2022 06:22-0400 Blood Pressure Cuff Size HERVE OLIVAREZ MD [address] [place] [address] 11-10-2022 06:22-0400 Blood Pressure Location HERVE OLIVAREZ MD [address] [place] [address] 11-10-2022 06:22-0400 Blood Pressure Method HERVE OLIVAREZ MD [address] [place] [address] 11-10-2022 06:22-0400 Body height 167.6 cm HERVE OLIVAREZ MD [address] [place] [address] 11-10-2022 06:22-0400 Body temperature 97.7 [degF] HERVE OLIVAREZ MD [address] [place] [address] 11-10-2022 06:22-0400 Body weight 116.5 kg HERVE OLIVAREZ MD [facility] 11-10-2022 06:22-0400 Body weight 41.47 kg/m2 HERVE OLIVAREZ MD [facility] 10-16-2022 08:03-0400 Diastolic blood pressure 52 mm[Hg] Dr. Manasa Zendejas Work Phone: [facility] 10-16-2022 08:03-0400 Heart rate 70 /min Dr. Manasa Zendejas Work Phone: [facility] 10-16-2022 08:03-0400 Respiratory rate 18 /min Dr. Manasa Zendejas Work Phone: [facility] 10-16-2022 08:03-0400 SaO2% (BldA) [Mass fraction] 100 % Dr. Manasa Zendejas Work Phone: [facility] 10-16-2022 08:03-0400 Systolic blood pressure 123 mm[Hg] Dr. Manasa Zendejas Work Phone: [facility] 10-16-2022 06:37-0400 Body height 167.[address] Manasa Zendejas Work Phone: [facility] 10-16-2022 06:37-0400 Body mass index (BMI) [Ratio] 40.8 kg/m2 Dr. Manasa Zendejas Work Phone: [facility] 10-16-2022 06:37-0400 Body temperature 98 [degF] Dr. Manasa Zendejas Work Phone: [facility] 10-16-2022 06:37-0400 Body weight 114.[address] Manasa Zendejas Work Phone: [facility] 09-21-2022 09:25-0400 Diastolic Blood Pressure Non-Invasive [address] [facility] 09-21-2022 09:25-0400 Heart rate 54 /min RICKEY HUNG MD [facility] 09-21-2022 09:25-0400 Respiratory rate 20 /min RICKEY HUNG MD [facility] 09-21-2022 09:25-0400 Systolic Blood Pressure Non-Invasive 108 [address] [facility] 09-21-2022 09:08-0400 Diastolic Blood Pressure Non-Invasive 71 1 RICKEY HUNG MD [facility] 09-21-2022 09:08-0400 Heart rate 54 /min RICKEY HUNG MD [facility] 09-21-2022 09:08-0400 Respiratory rate 15 /min RICKEY HUNG MD [facility] 09-21-2022 09:08-0400 Systolic Blood Pressure Non-Invasive 112 1 RICKEY HUNG MD [facility] 09-21-2022 09:04-0400 Diastolic Blood Pressure Non-Invasive 81 [address] [facility] 09-21-2022 09:04-0400 Heart rate 58 /min RICKEY HUNG MD [facility] 09-21-2022 09:04-0400 Respiratory rate 22 /min RICKEY HUNG MD [facility] 09-21-2022 09:04-0400 Systolic Blood Pressure Non-Invasive 128 [address] [facility] 09-21-2022 08:30-0400 Blood Pressure Cuff Size RICKEY HUNG MD [facility] 09-21-2022 08:30-0400 Blood Pressure Location RICKEY HUNG MD [facility] 09-21-2022 08:30-0400 Blood Pressure Method RICKEY HUNG MD [facility] 09-21-2022 08:30-0400 Body height 167 cm RICKEY HUNG MD [facility] 09-21-2022 08:30-0400 Heart rate 58 /min RICKEY HUNG MD [facility] 09-12-2022 10:08-0500 Body mass index (BMI) [Ratio] 41.9 kg/m2 Dr. Manasa Zendejas Work Phone: [facility] 09-12-2022 10:08-0500 Body weight 117.[address] Manasa Zendejas Work Phone: [facility] 09-12-2022 10:08-0500 Diastolic blood pressure 79 mm[Hg] Dr. Manasa Zendejas Work Phone: [facility] 09-12-2022 10:08-0500 Heart rate 74 /min Dr. Manasa Zendejas Work Phone: [facility] 09-12-2022 10:08-0500 Respiratory rate 18 /min Dr. Manasa Zendejas Work Phone: [facility] 09-12-2022 10:08-0500 SaO2% (BldA) [Mass fraction] 99 % Dr. Manasa Zendejas Work Phone: [facility] 09-12-2022 10:08-0500 Systolic blood pressure 125 mm[Hg] Dr. Manasa Zendejas Work Phone: [facility] 07-27-2022 13:29-0500 Body mass index (BMI) [Ratio] 42.1 kg/m2 Dr. Manasa Zendejas Work Phone: [facility] 07-27-2022 13:29-0500 Body weight 118.[address] Manasa Zendejas Work Phone: [facility] 07-27-2022 13:29-0500 Diastolic blood pressure 60 mm[Hg] Dr. Manasa Zendejas Work Phone: [facility] 07-27-2022 13:29-0500 Heart rate 48 /min Dr. Manasa Zendejas Work Phone: [facility] 07-27-2022 13:29-0500 Respiratory rate 16 /min Dr. Manasa Zendejas Work Phone: [facility] 07-27-2022 13:29-0500 Systolic blood pressure 100 mm[Hg] Dr. Manasa Zendejas Work Phone: [facility] 05-26-2022 10:28-0500 Body height 167.[address] Manasa Zendejas Work Phone: [facility] Work Phone: 05-26-2022 10:28-0500 Body mass index (BMI) [Ratio] 43.2 kg/m2 Dr. Manasa Zendejas Work Phone: [facility] Work Phone: 05-26-2022 10:28-0500 Body weight 121.[address] Manasa Zendejas Work Phone: [facility] Work Phone: 05-26-2022 10:28-0500 Diastolic blood pressure 66 mm[Hg] Dr. Manasa Zendejas Work Phone: [facility] Work Phone: 05-26-2022 10:28-0500 Heart rate 75 /min Dr. Manasa Zendejas Work Phone: [facility] Work Phone: 05-26-2022 10:28-0500 Respiratory rate 18 /min Dr. Manasa Zendejas Work Phone: [facility] Work Phone: 05-26-2022 10:28-0500 Systolic blood pressure 107 mm[Hg] Dr. Manasa Zendejas Work Phone: [facility] Work Phone: 05-17-2022 01:54-0500 Diastolic blood pressure 62 mm[Hg] Dr. Manasa Zendejas Work Phone: [facility] Work Phone: 05-17-2022 01:54-0500 Heart rate 56 /min Dr. Manasa Zendejas Work Phone: [facility] Work Phone: 05-17-2022 01:54-0500 Respiratory rate 18 /min Dr. Manasa Zendejas Work Phone: [facility] Work Phone: 05-17-2022 01:54-0500 SaO2% (BldA) [Mass fraction] 100 % Dr. Manasa Zendejas Work Phone: [facility] Work Phone: 05-17-2022 01:54-0500 Systolic blood pressure 91 mm[Hg] Dr. Manasa Zendejas Work Phone: [facility] Work Phone: 05-16-2022 22:14-0500 Body height 167.[address] Manasa Zendejas Work Phone: [facility] Work Phone: 05-16-2022 22:14-0500 Body mass index (BMI) [Ratio] 44.1 kg/m2 Dr. Manasa Zendejas Work Phone: [facility] Work Phone: 05-16-2022 22:14-0500 Body temperature 98.4 [degF] Dr. Manasa Zendejas Work Phone: [facility] Work Phone: 05-16-2022 22:14-0500 Body weight [address] Manasa Zendejas Work Phone: [facility] Work Phone: 05-02-2022 10:31-0400 Body mass index (BMI) [Ratio] 43.4 kg/m2 Dr. Manasa Zendejas Work Phone: [facility] Work Phone: 05-02-2022 10:31-0400 Body temperature 97.5 [degF] Dr. Manasa Zendejas Work Phone: [facility] Work Phone: 05-02-2022 10:31-0400 Body weight 122.[address] Manasa Zendejas Work Phone: [facility] Work Phone: 05-02-2022 10:31-0400 Diastolic blood pressure 77 mm[Hg] Dr. Manasa Zendejas Work Phone: [facility] Work Phone: 05-02-2022 10:31-0400 Heart rate 64 /min Dr. Manasa Zendejas Work Phone: [facility] Work Phone: 05-02-2022 10:31-0400 Respiratory rate 20 /min Dr. Manasa Zendejas Work Phone: [facility] Work Phone: 05-02-2022 10:31-0400 SaO2% (BldA) [Mass fraction] 95 % Dr. Manasa Zendejas Work Phone: [facility] Work Phone: 05-02-2022 10:31-0400 Systolic blood pressure 113 mm[Hg] Dr. Manasa Zendejas Work Phone: [facility] Work Phone: 04-06-2022 08:35-0400 Diastolic blood pressure 89 mm[Hg] RICKEY HUNG MD [facility] 04-06-2022 08:35-0400 Heart rate 61 /min RICKEY HUNG MD [facility] 04-06-2022 08:35-0400 Respiratory rate 22 /min RICKEY HUNG MD [facility] 04-06-2022 08:35-0400 Systolic blood pressure 133 mm[Hg] RICKEY HUNG MD [facility] 04-06-2022 08:23-0400 Diastolic Blood Pressure NBP 88 [address] [facility] 04-06-2022 08:23-0400 Heart rate 63 /min RICKEY HUNG MD [facility] 04-06-2022 08:23-0400 Respiratory rate 15 /min RICKEY HUNG MD [facility] 04-06-2022 08:23-0400 Systolic Blood Pressure NBP [address] [facility] 04-06-2022 08:10-0400 Diastolic Blood Pressure NBP 82 [address] [facility] 04-06-2022 08:10-0400 Heart rate 63 /min RICKEY HUNG MD [facility] 04-06-2022 08:10-0400 Respiratory rate 16 /min RICKEY HUNG MD [facility] 04-06-2022 08:10-0400 Systolic Blood Pressure NBP 110 1 RICKEY HUNG MD [facility] 04-06-2022 07:46-0400 Body height 167 cm RICKEY HUNG MD [facility] 04-06-2022 07:46-0400 Body weight 128 kg RICKEY HUNG MD [facility] 04-06-2022 07:46-0400 Body weight 45.9 kg/m2 RICKEY HUNG MD [facility] 04-06-2022 07:46-0400 diastolic 87 mm[Hg] RICKEY HUNG MD [facility] 04-06-2022 07:46-0400 Heart rate 64 /min RICKEY HUNG MD [facility] 04-06-2022 07:46-0400 systolic 163 mm[Hg] RICKEY HUNG MD [facility] 01-27-2022 06:17-0400 Body mass index (BMI) [Ratio] 48.9 kg/m2 Dr. Manasa Zendejas Work Phone: [facility] Work Phone: 01-27-2022 06:17-0400 Body temperature 97.9 [degF] Dr. Manasa Zendejas Work Phone: [facility] Work Phone: 01-27-2022 06:17-0400 Body weight 137.[address] Manasa Zendejas Work Phone: [facility] Work Phone: 01-27-2022 06:17-0400 Diastolic blood pressure 84 mm[Hg] Dr. Manasa Zendejas Work Phone: [facility] Work Phone: 01-27-2022 06:17-0400 Heart rate 69 /min Dr. Manasa Zendejas Work Phone: [facility] Work Phone: 01-27-2022 06:17-0400 Respiratory rate 17 /min Dr. Manasa Zendejas Work Phone[facility] [facility] Work Phone: 01-27-2022 06:17-0400 SaO2% (BldA) [Mass fraction] 98 % Dr. Manasa Zendejas Work Phone: [facility] Work Phone: 01-27-2022 06:17-0400 Systolic blood pressure 126 mm[Hg] Dr. Manasa Zendejas Work Phone: [facility] Work Phone: Encounters Encounter Date Encounter Type Care Provider Facility Start: 01-02-2025 End: 01-02-2025 Patient encounter procedure Cathy DEGROOT -[facility] Work Phone: Start: 01-02-2025 End: 01-02-[address] Manasa Zendejas DO Work Phone: [facility] Work Phone: Start: 12-26-2024 End: 12-26-[address] Donn Hawk MD -[facility] Work Phone: Start: 12-26-2024 End: 12-26-[address] Manasa Zendejas DO Work Phone: [facility] Work Phone: Start: 12-23-2024 ambulatory Manasa Zendejas Facility: [facility] Start: 12-23-2024 Non-patient / Non-visit Dr. Cale wolf DO -[facility] Start: 12-19-2024 End: 12-19-[address] Manasa Zendejas DO Work Phone: [facility] Work Phone: Start: 12-19-2024 End: 12-19-2024 Patient encounter procedure Cathy DEGROOT -Pulmonary Services/Neurology Work Phone: Start: 12-19-2024 End: 12-19-2024 ambulatory Manasa Zendejas Facility:[facility] Start: 12-17-2024 End: 12-17-2024 ambulatory RICKEY HUNG MD Facility:A Start: 12-17-2024 End: 12-17-2024 Anticoagulant drug monitoring RICKEY HUNG MD [facility] Start: 11-20-2024 End: 11-24-2024 ambulatory MANASA ZENDEJAS DO Facility:[facility] [place] Start: 11-20-2024 ambulatory JESUS NAGI IT NETWORK ARCHITECT-NODULIZER F acility:A Start: 11-07-2024 End: 11-07-2024 ambulatory JESUS NAGI IT NETWORK ARCHITECT-NODULIZER Facility:A Start: 11-07-2024 End: 11-07-2024 Patient encounter procedure JESUS NAGI IT NETWORK ARCHITECT-NODULIZER [facility] Start: 10-30-2024 End: 10-30-[address] Manasa Zendejas DO Work Phone: [facility] Work Phone: Start: 10-30-2024 End: 10-30-2024 Patient encounter procedure Cathy DEGROOT -Pulmonary Services/Neurology Work Phone: Start: 10-30-2024 End: 10-30-2024 ambulatory Manasa Zendejas Facility:[facility] Start: 10-25-2024 End: 10-25-2024 Patient encounter procedure Cathy DEGROOT -[facility] Work Phone: Start: 10-25-2024 End: 10-25-2024 ambulatory Manasa Zendejas Facility:[facility] Start: 10-15-2024 End: 10-15-[address] Manasa Zendejas DO Work Phone: [facility] Work Phone: Start: 10-15-2024 End: 10-15-2024 Patient encounter procedure Cathy DEGROOT -[facility] Start: 10-15-2024 End: 10-15-2024 ambulatory Manasa Zendejas Facility:[facility] Start: 10-07-2024 End: 10-07-2024 Patient encounter procedure Cathy DEGROOT -[facility] Work Phone: Start: 10-07-2024 End: 10-07-[address] Manasa Zendejas DO Work Phone: [facility] Work Phone: Start: 10-07-2024 End: 10-07-2024 ambulatory Manasa Zendejas Facility:[facility] Start: 09-30-2024 End: 09-30-2024 ambulatory MANASA ZENDEJAS DO Facility:[facility] [place] Start: 09-11-2024 End: 09-11-2024 ambulatory JESUS LAZAR IT NETWORK ARCHITECT-NODULIZER Facility:A Start: 09-11-2024 End: 09-11-2024 Patient encounter procedure JESUS LAZAR IT NETWORK ARCHITECT-NODULIZER [facility] Start: 08-23-2024 End: 08-23-2024 ambulatory MANASA PHILIPKO DO Facility[place] Start: 08-23-2024 End: 08-23-2024 Patient encounter procedure MANASA ZENDEJAS DO [facility] Start: 07-02-2024 End: 07-02-2024 Emergency department patient visit Dr. Behzad Rivera DO -Emergency Department Work Phone: Start: 06-21-2024 End: 06-21-2024 Patient encounter procedure Cathy DEGROOT -[facility] Work Phone: Start: 06-21-2024 End: 06-21-2024 ambulatory Manasa Zendejas Facility:[facility] Start: 06-13-2024 End: 06-13-2024 ambulatory MANASA ZENDEJAS DO Facility:A Start: 06-13-2024 End: 06-13-2024 Anticoagulant drug monitoring RICKEY HUNG MD [facility] Start: 05-22-2024 End: 05-22-2024 ambulatory Manasa Cristiana Facility:[facility] Start: 04-29-2024 End: 04-29-2024 ambulatory MANASA ZENDEJAS DO Facility:[facility] Start: 04-29-2024 End: 04-29-2024 Patient encounter procedure IRCKEY HUNG MD [facility] Start: 02-14-2024 Encounter for genera l adult medical examination without abnormal findings Donn Hawk [facility] Start: 01-31-2024 ambulatory Manasa Palaciosko Facility: [facility] Start: 01-31-2024 ambulatory Manasa Philipko Facility: [facility] Start: 01-30-2024 End: 01-31-2024 ambulatory RICKEY HUNG MD Facility:A Start: 01-30-2024 End: 01-30-2024 Anticoagulant drug monitoring RICKEY HUNG MD [facility] Start: 01-18-2024 End: 01-18-2024 ambulatory Manasa Zendejas Facility:[facility] Start: 12-28-[address] Pedro Luis Zendejas DO Work Phone: [facility] Start: 12-26-2023 End: 12-26-2023 ambulatory RICKEY HUNG MD Facility:A Start: 09-25-2023 End: 09-25-2023 ambulatory RICKEY HUNG MD Facility:A Start: 09-25-2023 End: 09-25-2023 Patient encounter procedure RICKEY HUNG MD [facility] Start: 08-14-2023 End: 08-14-2023 ambulatory MANASA ZENDEJAS DO Facility:[facility] Start: 08-14-2023 End: 08-14-2023 Patient encounter procedure MANASA CRISTIANA DUBOIS [facility] Start: 08-14-2023 End: 08-14-2023 ambulatory MANASA ZENDEJAS DO Facility:[facility] Start: 07-27-2023 End: 07-27-2023 ambulatory MARCOS A SOLO IT NETWORK ARCHITECT-OFFICE CLERK ROUTINE Facility:A Start: 07-27-2023 End: 07-27-2023 Anticoagulant drug monitoring MARCOS A SOLO IT NETWORK ARCHITECT-OFFICE CLERK ROUTINE [facility] Start: 06-30-2023 End: 06-30-2023 ambulatory MARCOS A SOLO IT NETWORK ARCHITECT-OFFICE CLERK ROUTINE Facility:A Start: 06-30-2023 End: 06-30-2023 Patient encounter procedure MARCOS A SOLO IT NETWORK ARCHITECT-OFFICE CLERK ROUTINE [facility] Start: 04-24-2023 End: 04-24-[address] Manasa eZndejas Work Phone: [facility] Work Phone: Start: 04-24-2023 End: 04-24-[address] Manasa Zendejas Work Phone: [facility] Work Phone: Start: 03-15-2023 End: 03-15-2023 ambulatory GOKUL JANG APRN-NODULIZER Facility:A Start: 03-15-2023 End: 03-15-2023 Anticoagulant drug monitoring GOKUL JANG IT NETWORK ARCHITECT-NODULIZER [facility] Start: 02-24-2023 End: 02-24-2023 ambulatory [facility] Facility:B Start: 02-24-2023 End: 02-24-2023 Patient encounter procedure MANASA ZENDEJAS DO [facility] Start: 02-14-2023 End: 02-14-2023 ambulatory MANASA ZENDEJAS DO Facility:A Start: 02-14-2023 End: 02-14-2023 Patient encounter procedure GOKUL JANG IT NETWORK ARCHITECT-NODULIZER [facility] Start: 02-10-2023 Non-patient / Non-visit Dr. Opal Zendejas Work Phone: [facility] Work Phone: Start: 02-09-2023 End: 02-09-[address] Manasa Zendejas Work Phone: [facility] Work Phone: Start: 11-10-2022 End: 11-11-2022 Observation HERVE OLIVAREZ MD [facility] Start: 10-28-2022 End: 10-28-2022 Patient encounter procedure MANASA ZENDEJAS DO [facility] Start: 10-16-2022 End: 10-16-2022 Emergency department patient visit Dr. Manasa Zendejas Work Phone: [facility]-Emergency Department Start: 09-21-2022 End: 09-21-2022 Anticoagulant drug monitoring RICKEY HUNG MD [facility] Start: 09-12-2022 End: 09-12-[address] Manasa Zendejas Work Phone: [facility] Start: 08-02-2022 End: 08-02-[address] Manasa Zendejas Work Phone: [facility] Start: 07-27-2022 End: 07-27-[address] Manasa Zendejas Work Phone: [facility] Start: 07-26-2022 Non-patient / Non-visit Dr. Opal Zendejas Work Phone: [facility] Start: 07-01-2022 Non-patient / Non-visit Dr. Oapl Zendejas Work Phone: [facility] Start: 06-07-2022 Non-patient / Non-visit Dr. Opal Zendejas Work Phone: [facility] Start: 06-07-2022 End: 06-07-[address] Manasa Zendejas Work Phone: [facility] Work Phone: Start: 06-07-2022 End: 06-07-[address] Manasa Zendejas Work Phone: [facility] Start: 06-02-[address] Krish Zendejas Work Phone: [facility] Start: 05-30-2022 Non-patient / Non-visit Dr. Opal Zendejas Work Phone: [facility] Start: 05-30-2022 End: 05-30-[address] Manasa Zendejas Work Phone: [facility] Work Phone: Start: 05-30-2022 End: 05-30-[address] Manasa Zendejas Work Phone: [facility] Start: 05-26-2022 End: 05-26-[address] Manasa Zendejas Work Phone: [facility] Work Phone: Start: 05-26-2022 End: 05-27-2022 Patient encounter procedure RICKEY HUNG MD [facility] Start: 05-16-2022 End: 05-17-2022 Emergency department patient visit Dr. Manasa Zendejas Work Phone: [facility]-Emergency Department Start: 05-02-2022 End: 05-02-[address] Manasa Zendejas Work Phone: [facility]-Pulmonary Medicine [facility] Start: 04-06-2022 End: 04-06-2022 Minor Procedure RICKEY HUNG MD [facility] Start: 02-23-2022 End: 02-23-2022 Patient encounter procedure CALEB AJ MD [facility] Start: 02-11-2022 End: 02-11-2022 Patient encounter procedure RICKEY HUNG MD [facility] Start: 02-11-2022 End: 02-11-2022 Patient encounter procedure RICKEY HUNG MD [facility] Start: 01-27-2022 End: 01-27-[address] Manasa Zendejas Work Phone: [facility]-P[facility] Medicine [facility] Start: 01-03-2022 End: 01-03-2022 Patient encounter procedure MANASA ZENDEJAS DO [facility] Start: 12-14-2021 End: 12-14-2021 Minor Procedure MANASA PALACIOSALONZO DUBOIS [facility] Procedures Date Procedure Procedure [...] [facility] Imaging SN 1 MARCOS BANDA IT NETWORK ARCHITECT-OFFICE CLERK ROUTINE Comment on above: auto-populated from documented surgical [...] Spine L/S Wit h Imaging SN 1 GOKULCYNTHIA OLSONWITT IT NETWORK ARCHITECT-NODULIZER Comment on above: auto-populated from documented surgical case Start: 03-15-2023 PM Inj Spine L/S [facility] Imaging SN 2 MARCOS BANDA IT NETWORK ARCHITECT-OFFICE CLERK ROUTINE Comment on above: auto-populated from documented surgical [...] MD Comment on above: IMPRESSION: Normal ambulatory case monitor with a predominant underlying rhythm of normal sinus. Start: 12-08-2022 Ablation - action (q ualifier value) GOKUL JANG IT NETWORK ARCHITECT-NODULIZER Comment on above: Impression: Successf ul ablation [...] L/S Wit [facility] Imaging SN 2 GOKUL OLSONWITT IT NETWORK ARCHITECT-NODULIZER Comment on above: auto-populated from documented surgical case Start: 09-21-2022 PM Inj Spine L/S Wit h Imaging SN 3 MARCOS BANDA IT NETWORK ARCHITECT-OFFICE CLERK ROUTINE Comment on above: auto-populated from documented surgical [...] L/S Wit h Imaging SN 3 GOKUL OLSONWITT IT NETWORK ARCHITECT-NODULIZER Comment on above: auto-populated from documented surgical case Start: 04-06-2022 PM Inj Spine L/S [facility] Imaging SN 4 MARCOS BANDA IT NETWORK ARCHITECT-OFFICE CLERK ROUTINE Comment on above: auto-populated from documented surgical [...] surgical case Start: 11-08-2015 Cardiac catheterization MA[facility]SA [facility] Start: 01-23-2015 Structure of left kn ee (body structure) [facility] Start: 08-22-2013 Structure of left sh oulder region (body structure) MANASA [facility] Start: 04-09-2009 Hernia of abdominal cavity (disorder) MA[facility]SA [facility] Start: 02-19-2009 Structure of right s houlder region (body structure) [facility] Back structure, excl uding neck (body structure) [facility] Urine culture Dr. Manasa michaud Work Phone: Plan of Treatment Date Care Activity Detail Author Start: 11-28-[address] [facility] Start: 07-02-[address] [facility] Start: 10-16-[address] [facility] Start: 09-12-2022 Patient referral [facility] Work Phone: Start: 08-02-2022 Evaluation of diagno stic study results [facility] Start: 05-17-2022 Following clinical p athway protocol [facility] Work Phone: Start: 05-17-[address] [facility] Work Phone: Bacteria identified in Urine by Culture Urine Culture [facility] Work Phone: Basic metabolic 2008 panel with ionized calcium - Serum or Plasma [facility] Patient Education [facility] Work Phone: Patient referral [facility] Work Phone: Positron emission tomography with computed tomography [facility] Work Phone: [facility] Immunizations Immunization Date Immunization Notes Care Provider Fa [facility] 06-21-2024 influenza virus vaccine, unspecified formulation MANASA ZENDEJAS DO [facility] 06-21-2024 Seasonal trivalent influenza vaccine, adjuvanted, preservative free Dr. Manasa Zendejas DO Work Phone: [facility] 04-18-2023 zoster vaccine recombinant RICKEY HUNG MD [facility] 02-09-2023 zoster vaccine recombinant RICKEY HUNG MD 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 08-12-2020 SARS-CoV-2 (COVID-19 ) mRNA-1273 vaccine MANASA ZENDEJAS DO [facility] 07-17-2020 SARS-CoV-2 (COVID-19 ) mRNA-1273 vaccine MANASA ZENDEJAS DO [facility] 05-05-2020 diphtheria and tetan us toxoids, adsorbed for pediatric use MANASA ZENDEJAS DO [facility] 05-05-2020 influenza virus vaccine, unspecified formulation MANASA ZENDEJAS DO [facility] 07-10-2019 diphtheria and tetan us toxoids, adsorbed for pediatric use MANASA ZENDEJAS DO [facility] Comment on above: Result Comment: [facility] 04-13-2016 influenza, injectabl e, quadrivalent, preservative free Dr. Manasa Zendejas Work Phone: [facility] 04-13-2016 influenza, seasonal, injectable Dr. Manasa Zendejas Work Phone: [facility] 05-15-[address] Manasa Zendejas Work Phone: [facility] 03-10-2012 influenza virus vaccine, unspecified formulation MANASA ZENDEJAS DO [facility] [employer] [facility] Payers Date Payer Category Payer Self-pay [id number] 2023 Private Health Insurance [id number] 2022 Private Health Insurance [id number] 2016 Private Health Insurance [employer] [id number] 1955 Unknown [id number] 2.16.8 40.1.697156.3.579.2.627 1955 Unknown [id number] 2.16.8 40.1.839455.3.579.2.627 1955 Unknown [id number] 2.16.8 40.1.970106.3.579.2.627 1956 Unknown [id number] 2.16.8 40.1.755316.3.579.2.627 1956 Unknown [id number] 2.16.8 40.1.318035.3.579.2.7 1956 Unknown [id number] 2.16.8 40.1.296043.3.579.2.627 1956 Unknown [id number] 2.16.8 40.1.819622.3.579.2.7 1956 Unknown [id number] 2.16.8 40.1.121886.3.579.2.627 1956 Unknown [id number] 2.16.8 40.1.754405.3.579.2. 1956 Unknown [id number] 2.16.8 40.1.620333.3.579.2. 1956 Unknown [id number] 2.16.8 40.1.987691.3.579.2. 1956 Unknown [id number] 2.16.8 40.1.302403.3.579.2. 1956 Unknown [id number] 2.16.8 40.1.327781.3.579.2.7 1956 Unknown [id number] 2.16.8 40.1.623806.3.579.2. 1955 Unknown [id number] 2.16. 840.1.635009.3.579.2. 1955 Unknown [id number] 2.16.8 40.1.260532.3.579.2.7 1956 Unknown [id number] 2.16.8 40.1.464963.3.579.2.7 1956 Unknown [id number] 2.16.8 40.1.585124.3.579.2.627 1956 Unknown [id number] 2.16.8 40.1.887325.3.579.2.627 1955 Unknown [id number] 2.16.8 40.1.386463.3.579.2.627 Unknown [id number] 2.16.8 40.1.477591.3.579.2.462 Unknown [id number] 2.16.8 40.1.278559.3.579.2.462 Unknown [id number] 2.16.8 40.1.830220.3.579.2.462 Unknown [id number] 2.16.8 40.1.528344.3.579.2.462 Unknown [id number] 2.16.8 40.1.407712.3.579.2.462 Unknown [id number] 2.16.8 40.1.533014.3.579.2.462 Unknown [id number] 2.16.8 40.1.625621.3.579.2.462 Unknown [id number] 2.16.8 40.1.166588.3.579.2.462 Unknown [id number] 2.16.8 40.1.646122.3.579.2.462 Unknown [id number] 2.16.8 40.1.346857.3.579.2.462 Unknown [id number] 2.16.8 40.1.214847.3.579.2.462 Unknown [id number] 2.16.8 40.1.025255.3.579.2.462 Unknown [id number] 2.16.8 40.1.172439.3.579.2.462 Unknown [id number] 2.16.8 40.1.804399.3.579.2.462 Unknown [id number] 2.16.8 40.1.305228.3.579.2.462 Unknown [id number] 2.16.8 40.1.151440.3.579.2.462 Unknown [id number] 2.16.8 40.1.531054.3.579.2.462 Social History Date Type Detail Facility Start: 06-24-2019 End: 01-15-2024 Tobacco smoking status Never smoked tobacco (finding) [facility] Start: 1955 Sex Assigned At Male A [facility] Start: 05-16-2022 End: 02-09-2023 Tobacco smoking status NHIS Unknown if ever smoked [facility] Start: 09-03-[address] [facility] Start: 09-03-[address] [facility] Start: 09-03-[address] [facility] Start: 09-03-2013 Non-smoker [facility] Start: 11-10-2022 End: 07-02-2024 Tobacco smoking status Ex-smoker (finding) [facility] Sexual Orientation [facility] Start: 01-02-2019 End: 11-04-2024 Sex Male (finding) [facility] Functional Status Date Assessment Result Facility 06-13-2024 Functional Status Independent [facility] 06-13-2024 Functional Status Maintained [facility] 01-30-2024 Functional Status Maintained [facility] 07-27-2023 Functional Status None [facility] 07-27-2023 Functional Status More than 8 hours [facility] 03-15-2023 Functional Status Maintained [facility] 11-11-2022 Functional Status Ambulating in room [facility] 11-11-2022 Functional Status 100 [facility] 11-11-2022 Functional Status Room located n ear nursing station, Room check performed [facility] 11-10-2022 Functional Status [facility] 11-10-2022 Functional Status Dinner Percent 100 [facility] 11-10-2022 Functional Status Identification band, Verbal [facility] 11-10-2022 Functional Status [facility] 11-10-2022 Functional Status [facility] 09-21-2022 Functional Status Maintained [facility] 04-06-2022 Functional Status Maintained [facility] Mental Status Date Assessment Result Facility 01-30-2024 Mental Status Orientation Oriented x 4 [facility] 07-27-2023 Mental Status Orientation Oriented x 4 [facility] 03-15-2023 Mental Status Orientation Oriented x 4 [facility] 11-11-2022 Mental Status Orientation Oriented x 4 [facility] 11-11-2022 Mental Status [facility] 11-10-2022 [facility]-10[facility] Status [facility] x [facility] 11-10-2022 [facility] 09-21-2022 Mental Status Orientation Oriented x 4 [facility] 05-16-2022 Cognitive function Voice/Name [facility] Work Phone: 04-06-2022 Mental Status Oriented x [address] [facility] Clinical Notes 04-23-2021 to 12-26-2024 Note Date & Type Note Facility 12-26-2024 Progress note Note Date/Time December 26, 2024 1:57pm [facility] [address] [place] [address] OFFICE VISIT Date of Service: 12/26/24 MR#: [id number] Acct: [id number] Name: KRYSTYNA PADGETT Rep #: [id number] : 1955 Provider: Dr. Christo Hawk MD Age/Sex: 69/M Location: [facility] Status: Signed HPI HPI History of Present Illness Details: This gentleman with history of atrial fibrillation status post ablation, nonobstructive CAD diagnosed on coronary angiography in 2016, hypertension and dyslipidemia. He is here for follow-up visit. Denies any complaints today. No palpitations. No chest pains. Shortness of breath with strenuous exertion only. Denies any orthopnea or PND. Chronic lower extremity edema. Intake Vital Signs 10/25/24 07:50 12/19/24 08:24 12/26/24 13:29 Height 5 ft 6 in 5 ft 6 in 5 ft 6 in Weight: 290 lb BMI 46.7 BP 119/69 Blood Pressure Location Lt brachial Position Sitting Respiration 18 Pulse 68 Pulse Source Monitor Pulse Oximetry (%) 96 Oxygen Delivery Method room air Intake Visit Reasons: 1 Y FU Environmental Services Coordinator Required: No Accompanied by: Self Is patient in pain?: No Allergies VICKIE Inhibitors Allergy (Severe, Verified 12/26/24 13:29) Angioedema Beta-Blockers (Beta-Adrenergic Bloc Allergy (Intermediate, Verified 12/26/24 13:29) HEART RATE DROPS VERY LOW clonidine Allergy (Verified 12/26/24 13:29) Other lisinopril Allergy (Verified 12/26/24 13:29) Angioedema simvastatin Adverse Reaction (Severe, Verified 12/26/24 13:29) myalgia rosuvastatin Adverse Reaction (Intermediate, Verified 12/26/24 13:29) Myalgia Medications ?Medication ?Instructions ?Recorded ?Confirmed ?Type allopurinol 100 mg tablet 100 mg PO BID 05/20/2012/26 History ezetimibe 10 mg tablet (Zetia) 10 mg PO DAILY #90 tabs 09/29/21 12/26/24 Rx amlodipine 5 mg tablet 5 mg PO DAILY blood pressure #90 03/04/22 12/26/24 Rx tabs apixaban 5 mg tablet (Eliquis) 5 mg PO BID #180 tabs 1 08/23/21 12/26/24 Rx nitroglycerin 0.4 mg sublingual 0.4 mg sublingual Q5M PRN 09/12/22 12/26/24 History tablet sildenafil 25 mg tablet mg PO PRN 09/12/23 12/26/24 History potassium citrate 15 mEq (1,620 15 meq PO QDAY 5 12/26/24 History mg) tablet,extended release terbinafine HCl 1 % topical cream applic topical 10/0712/26/24 History furosemide 40 mg tablet (Lasix) 40 mg PO QDAY #30 tabs 12/26/24 12/26/24 Rx spironolactone 25 mg tablet 25 mg PO QDAY #30 tabs 12/26/24 Rx Have you fallen in the past year?: No PFSH Medical History Intermittent palpitations Diminished pulses in lower extremity MARIELENA (obstructive sleep apnea) Chest pain Atrial fibrillation Fatigue Lung nodule, solitary Essential hypertension Dyspnea Obesity Bilateral kidney stones Hydronephrosis HLD (hyperlipidemia) PVCs (premature ventricular contractions) Atherosclerotic heart disease of [place] coronary artery without angina pectoris Sinus bradycardia Hypertension Surgical History History of cardiac radiofrequency ablation (RFA) (~11/2022) History of left heart catheterization (~11/18/15) History of repair of left rotator cuff [...] not use caffeine: No ROS Const Const: Negative for fatigue or weakness ENT ENT: Negative for dizziness or balance problems Cardio Chest Pain: No Palpitations: No Edema: Bilateral Muscle aches with walking: None Resp Respiratory: Positive for SOB with activity; Negative for SOB at rest or SOB orthopneaundefinedSOB lying down GI GI: Negative nausea, vomiting or heartburn Musc Musc: Negative for muscle weakness or balance problems Neuro Neuro: Negative for dizziness, lightheadedness, near syncope, syncope or weakness Endo Endo: Negative for fatigue Cardiology Exam Const Appearance: comfortable and no acute distress Nutritional Appearance: obese Neck Neck: no JVD Carotids: Negative bruit Chest Auscultation: Bilateral: Clear to Auscultation Cardio Rate: regular rate Rhythm: regular rhythm Heart sounds: S1 normal and S2 normal GI GI: obese Neuro General: patient alert, patient awake and patient oriented x3 Extremities Lower Extremity Edema: +2: Bilateral Supplemental Info Supplemental Information Labs: No Data to Display Diagnostics: Echocardiogram Stress Test Stress Test Nuclear Medicine Pulmonary: Pulmonary Exercise Test Past Visits: Cardiology Visit 12/26/24 Assessment and Plan Assessment and Plan (1) History of atrial fibrillation: Status: Chronic Plan: Status post ablation. Maintaining sinus rhythm. CHADS2?VASc score is 3. Continue apixaban. (2) Coronary artery disease: Status: Chronic Plan: Nonobstructive CAD reported previously on coronary angiography. For risk factormodification. (3) Essential hypertension: Status: Chronic Plan: Amlodipine. Spironolactone. DC hydrochlorothiazide. Start furosemide. Check BMP in 1 week. (4) HLD (hyperlipidemia): Status: Chronic Qualifiers: Hyperlipidemia type: unspecified Qualified Code(s): E78.5 - Hyperlipidemia, unspecified Plan: Zetia. Continue to manage as per primary care physician. (5) MARIELENA (obstructive sleep apnea): Status: Chronic (6) Morbid obesity: Status: Chronic Plan: Lose weight. I believe the patient may benefit from GLP-1 agonist. Defer decision to PCP. (7) Lower extremity edema: Status: Chronic Plan: Likely secondary to morbid obesity and venous incompetence. Check echocardiogram. DC hydrochlorothiazide. Start on furosemide. Orders: Orders Echo Complete Today R06.00 - Dyspnea, unspecified Basic Metabolic Profile (BMP) 1 Week I25.10 - Atherosclerotic heart disease of [place] coronary artery without angina pectoris Plan Details Follow Up: 12 Months Coding Level of Care Code Off vis,est,level 4 Diagnoses History of atrial fibrillation Z86.79 Coronary artery disease I25.10 Essential hypertension I10 Hyperlipidemia, unspecified hyperlipidemia type E78.5 Hyperlipidemia type: unspecified MARIELENA (obstructive sleep apnea) G47.33 Morbid obesity E66.01 Lower extremity edema R60.0 Coding Level of Care Code Off vis,est,level 4 Diagnoses History of atrial fibrillation Z86.79 Coronary artery disease I25.10 Essential hypertension I10 Hyperlipidemia, unspecified hyperlipidemia type E78.5 Hyperlipidemia type: unspecified MARIELENA (obstructive sleep apnea) G47.33 Morbid obesity E66.01 Lower extremity edema R60.0 Clinical Quality Measures Falls Risk Screening/Assistive Devices Have you fallen in the past year?: No 12/26/24 1522 <Electronically signed by Donn Hawk MD> Date _ Donn Hawk MD Cosigner Signature: Date (if applicable) CC: Dr. Manasa Zendejas, DO ~ [facility] Work Phone: [phone]) 884-566606-19-2025 [facility] [address] [place] [address] OFFICE VISIT Date of Service: 12/26/24 MR#: [id number] Acct: [id number] Name: KRYSTYNA PADGETT Rep #: [id number] : 1955 Provider: Dr. Christo Hawk MD Age/Sex: 69/M Location: [facility] Status: Signed HPI HPI History of Present Illness Details: This gentleman with history of atrial fibrillation status post ablation, nonobstructive CAD diagnosed on coronary angiography in 2015, hypertension and dyslipidemia. He is here for follow-up visit. Denies any complaints today. No palpitations. No chest pains. Shortness of breath with strenuous exertion only. Denies any orthopnea or PND. Chronic lower extremity edema. Intake Vital Signs 10/25/24 07:50 12/19/24 08:24 12/26/24 13:29 Height 5 ft 6 in 5 ft 6 in 5 ft 6 in Weight: 290 lb BMI 46.7 BP 119/69 Blood Pressure Location Lt brachial Position Sitting Respiration 18 Pulse 68 Pulse Source Monitor Pulse Oximetry (%) 96 Oxygen Delivery Method room air Intake Visit Reasons: 1 Y FU Environmental Services Coordinator Required: No Accompanied by: Self Is patient in pain?: No Allergies VICKIE Inhibitors Allergy (Severe, Verified 12/26/24 13:29) Angioedema Beta-Blockers (Beta-Adrenergic Bloc Allergy (Intermediate, Verified 12/26/24 13:29) HEART RATE DROPS VERY LOW clonidine Allergy (Verified 12/26/24 13:29) Other lisinopril Allergy (Verified 12/26/24 13:29) Angioedema simvastatin Adverse Reaction (Severe, Verified 12/26/24 13:29) myalgia rosuvastatin Adverse Reaction (Intermediate, Verified 12/26/24 13:29) Myalgia Medications ?Medication ?Instructions ?Recorded ?Confirmed ?Type allopurinol 100 mg tablet 100 mg PO BID 05/20/2012/26 History ezetimibe 10 mg tablet (Zetia) 10 mg PO DAILY #90 tabs 09/29/21 12/26/24 Rx amlodipine 5 mg tablet 5 mg PO DAILY blood pressure #90 03/04/22 12/26/24 Rx tabs apixaban 5 mg tablet (Eliquis) 5 mg PO BID #180 tabs 1 08/23/21 12/26/24 Rx nitroglycerin 0.4 mg sublingual 0.4 mg sublingual Q5M PRN 09/12/22 12/26/24 History tablet sildenafil 25 mg tablet mg PO PRN 09/12/23 12/26/24 History potassium citrate 15 mEq (1,620 15 meq PO QDAY 5 12/26/24 History mg) tablet,extended release terbinafine HCl 1 % topical cream applic topical 10/0712/26/24 History furosemide 40 mg tablet (Lasix) 40 mg PO QDAY #30 tabs 12/26/24 12/26/24 Rx spironolactone 25 mg tablet 25 mg PO QDAY #30 tabs 12/26/24 Rx Have you fallen in the past year?: No PFSH Medical History Intermittent palpitations Diminished pulses in lower extremity MARIELENA (obstructive sleep apnea) Chest pain Atrial fibrillation Fatigue Lung nodule, solitary Essential hypertension Dyspnea Obesity Bilateral kidney stones Hydronephrosis HLD (hyperlipidemia) PVCs (premature ventricular contractions) Atherosclerotic heart disease of [place] coronary artery without angina pectoris Sinus bradycardia Hypertension Surgical History History of cardiac radiofrequency ablation (RFA) (~11/2022) History of left heart catheterization (~11/18/15) History of repair of left rotator cuff [...] not use caffeine: No ROS Const Const: Negative for fatigue or weakness ENT ENT: Negative for dizziness or balance problems Cardio Chest Pain: No Palpitations: No Edema: Bilateral Muscle aches with walking: None Resp Respiratory: Positive for SOB with activity; Negative for SOB at rest or SOB orthopneaundefinedSOB lying down GI GI: Negative nausea, vomiting or heartburn Musc Musc: Negative for muscle weakness or balance problems Neuro Neuro: Negative for dizziness, lightheadedness, near syncope, syncope or weakness Endo Endo: Negative for fatigue Cardiology Exam Const Appearance: comfortable and no acute distress Nutritional Appearance: obese Neck Neck: no JVD Carotids: Negative bruit Chest Auscultation: Bilateral: Clear to Auscultation Cardio Rate: regular rate Rhythm: regular rhythm Heart sounds: S1 normal and S2 normal GI GI: obese Neuro General: patient alert, patient awake and patient oriented x3 Extremities Lower Extremity Edema: +2: Bilateral Supplemental Info Supplemental Information Labs: No Data to Display Diagnostics: Echocardiogram Stress Test Stress Test Nuclear Medicine Pulmonary: Pulmonary Exercise Test Past Visits: Cardiology Visit 12/26/24 Assessment and Plan Assessment and Plan (1) History of atrial fibrillation: Status: Chronic Plan: Status post ablation. Maintaining sinus rhythm. CHADS2?VASc score is 3. Continue apixaban. (2) Coronary artery disease: Status: Chronic Plan: Nonobstructive CAD reported previously on coronary angiography. For risk factormodification. (3) Essential hypertension: Status: Chronic Plan: Amlodipine. Spironolactone. DC hydrochlorothiazide. Start furosemide. Check BMP in 1 week. (4) HLD (hyperlipidemia): Status: Chronic Qualifiers: Hyperlipidemia type: unspecified Qualified Code(s): E78.5 - Hyperlipidemia, unspecified Plan: Zetia. Continue to manage as per primary care physician. (5) MARIELENA (obstructive sleep apnea): Status: Chronic (6) Morbid obesity: Status: Chronic Plan: Lose weight. I believe the patient may benefit from GLP-1 agonist. Defer decision to PCP. (7) Lower extremity edema: Status: Chronic Plan: Likely secondary to morbid obesity and venous incompetence. Check echocardiogram. DC hydrochlorothiazide. Start on furosemide. Orders: Orders Echo Complete Today R06.00 - Dyspnea, unspecified Basic Metabolic Profile (BMP) 1 Week I25.10 - Atherosclerotic heart disease of [place] coronary artery without angina pectoris Plan Details Follow Up: 12 Months Coding Level of Care Code Off vis,est,level 4 Diagnoses History of atrial fibrillation Z86.79 Coronary artery disease I25.10 Essential hypertension I10 Hyperlipidemia, unspecified hyperlipidemia type E78.5 Hyperlipidemia type: unspecified MARIELENA (obstructive sleep apnea) G47.33 Morbid obesity E66.01 Lower extremity edema R60.0 Coding Level of Care Code Off vis,est,level 4 Diagnoses History of atrial fibrillation Z86.79 Coronary artery disease I25.10 Essential hypertension I10 Hyperlipidemia, unspecified hyperlipidemia type E78.5 Hyperlipidemia type: unspecified MARIELENA (obstructive sleep apnea) G47.33 Morbid obesity E66.01 Lower extremity edema R60.0 Clinical Quality Measures Falls Risk Screening/Assistive Devices Have you fallen in the past year?: No 12/26/24 1357 MD> Date _ Donn Hawk MD Cosigner Signature: Date (if applicable) CC: Dr. Manasa Zendejas DO ~ [facility]06-16-2025 Procedure [facility] [address] [place] [address] MR#: [id number] Acct: [id number] Name: KRYSTYNA PADGETT Rep #:[id number] : 1955 69 From: Cale Ron DO Referring Dr: Cathy Ruiz NEONATAL PEDIATRIC NURSE NEONATAL PEDIATRIC NURSE-C Status: REG CLI Location: PSN Date: Sex: M C PSN 6 Minute Walk Test 6 Minute Walk Test 6 Minute Walk Test: 6 Minute Walk Test PSN:6-Minute Walk Test Start: 12/19/24 08:24 Freq: Status: Active Protocol: RESP.6MINW Document 12/19/24 08:24 [facility] (Rec: 12/19/24 08:30 [facility] [id number]) 6 Minute Walk Test Date Performed 12/19/24 Time Performed 08:00 Height 5 ft 6 in Weight: 294 lb Weight in Pounds 294.[address]: Cathy Ruiz NEONATAL PEDIATRIC NURSE Assistive device None used: Pre-test Oxygen Delivery Room Air Method Pulse Ox (%) 98 Pulse Rate (60-100 77 beats/min) Dyspnea Adam Scale ( 2 0-10) Exertion Adam Scale 6 (6-20) 1st minute Oxygen Delivery Room Air Method Pulse Ox (%) 98 Pulse Rate (60-100 83 beats/min) Dyspnea Adam Scale ( 3 0-10) Number of Rests 0 Taken Reported Symptoms Increased Work of Breathing 2nd minute Oxygen Delivery Room Air Method Pulse Ox (%) 98 Pulse Rate (60-100 80 beats/min) Dyspnea Adam Scale ( 4 0-10) Number of Rests 0 Taken Reported Symptoms Increased Work of Breathing 3rd minute Oxygen Delivery Room Air Method Pulse Ox (%) 98 Pulse Rate (60-100 92 beats/min) Dyspnea Adam Scale ( 5 0-10) Number of Rests 1 Taken Reported Symptoms Increased Work of Breathing 4th minute Oxygen Delivery Room Air Method Pulse Ox (%) 95 Pulse Rate (60-100 102 H beats/min) Dyspnea Adam Scale ( 5 0-10) Number of Rests 0 Taken Reported Symptoms Increased Work of Breathing 5th minute Oxygen Delivery Room Air Method Pulse Ox (%) 94 Pulse Rate (60-100 99 beats/min) Dyspnea Adam Scale ( 5 0-10) Number of Rests 1 Taken Reported Symptoms Increased Work of Breathing 6th minute Oxygen Delivery Room Air Method Pulse Ox (%) 98 Pulse Rate (60-100 99 beats/min) Dyspnea Adam Scale ( 6 0-10) Exertion Adam Scale 6 (6-20) Number of Rests 0 Taken Reported Symptoms Increased Work of Breathing Post-test Oxygen Delivery Room Air Method Pulse Ox (%) 98 Pulse Rate (60-100 78 beats/min) Dyspnea Adam Scale ( 2 0-10) Full Laps Walked 15 Partial Lap, Number 0 of Tiles Walked Total Distance 885 Walked (ft) Interpretation Interpretation: The patient ambulated 885 feet over the course of 6 minutes beginning on room air without assistivedevices. Pretesting oxygen saturation was noted to be 98%on room air. With ambulation, the ludy oxygen saturation was 94%. There was no significant exertional oxygen desaturation. Recommendations Recommendations: There is no indication for the use of supplemental oxygen at this time. 12/23/24 1020 O> Date _ Cale Ron DO CC: ~ Date Dictated: 12/23/24 1020 Date Transcribed: 12/23/24 1020 Manager Patient: Dr. Cale Ron, DO Signed [facility]06-10-2025 Hospital Discharge instructions Patient Education 12/17/2024 07:42:22 Epidural Steroid Injection, Care After Hung (18291) Epidural Steroid Injection, Care After Refer to [...] the bandage (dressing) after 24 hours. Take vvps-znq-odltpvb and prescription medicines only as told by your health care provider. Keep all follow-up visits as told by your health care provider. This is important. Contact a health care provider if: You have a fever. You continue to have pain and soreness around the injection site, even after taking eyqx-fpk-pkiaiwd pain medicine. You have severe, sudden, or [...] 10/11/2011 Document Revised: 06/08/2018 Document Reviewed: 10/11/2016 [employer] Patient Education 2020 Spectral Image. 12/17/2024 07:42:22 PM Discharge Instructions Lumbar Epidural (CUSTOM) [facility] Discharge Instructions fo Lumbar Epidural [...] as needed for 24 48 hours. Contact [facility] to make an appointment to discuss the results of this procedure. The final report will be available to your referring physician within the next 10 days. If you have any unusual problems related to this procedure, please call [phone]. [facility] 06-10-2025 Summary of episode note Discharge Instructions Thank you for allowing [facility] to assist you with your healthcare needs. The following is importantdischarge information regarding your hospital visit. Your Care Team MANASA ZENDEJAS DO Your Diagnosis Lumbar radiculopathy Lumbar stenosis with neurogenic claudication Lumbar postlaminectomy syndrome Anticoagulated by anticoagulation treatment What to do next Scheduled Follow-Up Appointments Appointment Type When With Where Contact Information StatusCV OV 01/13/2025 10:15 AM EDT [facility] CV Miri Confirmed PC Wellness Medicare 02/12/2025 08:30 AM EDT MANASA ZENDEJAS DO [facility] Confirmed PM OV 03/17/2025 11:50 AM EDT RICKEY HUNG MD Pain Management Confirmed Medications Please ask your [...] the bandage (dressing) after 24 hours. Take pjci-vcf-ysxsdgo and prescription medicines only as told by your health care provider. Keep all follow-up visits as told by your health care provider. This is important. Contact a health care provider if: You have a fever. You continue to have pain and soreness around the injection site, even after taking qpax-qso-sduojps pain medicine. You have severe, sudden, or [...] 10/11/2011 Document Revised: 06/08/2018 Document Reviewed: 10/11/2016 [employer] Patient Education 2020 Spectral Image. [facility] Discharge Instructions fo Lumbar [...] as needed for 24 48 hours. Contact [facility] to make an appointment to discuss the results of this procedure. The final report will be available to your referring physician within the next 10 days. If you have any unusual problems related to this procedure, please call [phone]. Additional Information VACCINATE! IT SAVES LIVES! Members of the community who have not yet received the COVID-19 vaccine and would like to receive it can visit one of [facility] vaccine clinics. There are many vaccine clinic locations within the [facility]. For locations and available times, please visit [email or web address].[email or web address].gov/. It is important to note that some COVID mobile vaccine clinics are held outdoors and may be canceled in rainy or stormy conditions. To learn more about pediatric vaccinations (ages 5-11), we invite you to visit the [employer] webpage. [email or web address]/[email or web address] [email or web address].htmlTo learn more about the COVID-19 vaccine, we invite you to visit the CDC website for a list of frequently asked questions.https://www.cdc.gov/coronavirus/2019-ncov/vaccines/faq.html [employer] Patient Portal Access Instructions: Stay connected with your healthcare team and access your personal medical information anytime with the [employer] Patient Portal. Please follow the directions below to create your [employer] account: 1.Access the email account you provided upon registration to the hospital/physician office.2.Look for an invitation email from [facility].3.Open the email and access the invitation link: AcceptInvitation to [employer].4.Fill in the required perez to create your account. To access your account, visit [employer]. Click the blue button labeled Access Patient Portal and then log in with the username and password that you created in the steps above. You will be able to view your test results, lab results, a summary of your visits, upcoming appointments and more. There is also a convenient messaging option where you can send secure messages to your [employer]. In addition, you will have the ability to download any documents or summaries to your computer and/or send the information securely to a physician. Remember that your healthcare information is confidential, so carefully consider who you will allowto register on the [employer] Patient Portal for access to your information. You can also access the [employer] Patient Portal on the [employer] mali. Simply click on Patient Portal and then log into your account. If you would like to receive a full copy of your medical records, please contact the [facility] Medical Records Department by calling [phone], Monday through Monday between 8 a.m. and [...] Call your local pharmacy or go to [email or web address] [email or web address]/[email or web address] to find one close to you.3.Make use of household items: Use cat litter or old coffee grounds to dispose medications if other options arenot available. Mix your drugs with these household products, seal them in an airtight container andthrow it into the garbage. Call [facility]: [phone] to be sure your drugs can be [...] Materials Epidural Steroid Injection, Care After Hung (75816) PM Discharge Instructions Lumbar Epidural (CUSTOM) Medication Leaflets My discharge plan and instructions have been reviewed and explained to me and I,KRYSTYNA PADGETT understand my current condition and have read and understand these discharge instructions. I have received a written copy of the plan/instructions. If I have questions, I am aware that I should contactmy doctor. Patient/Operations Coordinator Signature: Date/Time: Relationship to Patient: Witness Name/Signature: Date/Time: [facility] [id number] History and physical note History and Physical [...] with standing. Patient describes the pain as kwnt-xmy-jmopovq. Patient reports that his pain is alleviated with injections as well as rest. Patient reports he has done physical therapy in the past but that it aggravated his pain. Patient does try to do home exercising and stretching as tolerated. Patient has not found any lnny-hms-qdanulf medications that have been helpful. Patient does [...] it is in fact an infection and whetherhe will be on antibiotics or not. Patient does think it is psoriasis though but just wanted to be sure. Of note patient did recently have a pulmonary function test due to a pulmonary nodule in his lung that they now think it is an enlarged vein. Patient also has to do a 6-minute walking test and then will follow-up with the buckle assembler. Patient is agreeable to treatment plan. Patient denies any other questions or concerns at this time. 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 Lumbar radiculopathy Ordered Lumbar Epidural Steroid Injection L2-L3 with Dr. Hung Preprocedure instructions provided and discussed May use heat and ice for comfort as tolerated Encouraged gentle stretching as tolerated Ordered: PM Inj Spine L/S With Imaging 02931(Epidural Injection, Lumbar/Sacral/Caudal w/ Imaging (PM Procedure) 57361), 11/07/24, RICKEY HUNG MD, Lumbar Epidural Steroid Injection L2-3, Local, Lumbar radicuolpathy, lumbar postlaminectomy syndrome, Future Order, PM Office, PM Mya 4. Spondylolisthesis of lumbar region May use heat and ice for comfort as tolerated Encouraged gentle stretching as tolerated Portions of the record may have been created with voice recognition software. Occasional wrong-wordor khjbb-y-okyt substitutions may have occurred due to the [...] C screening test Nephrolithiasis Neurogenic claudication Old CA (myocardial infarction) MARIELENA treated with BiPAP Osteoarthritis [...] [1] Specialty Office Visit Note; JESUS LAZAR APRN-NODULIZER 11/07/2024 10:04 EDT Digitally Signed by RICKEY HUNG MD on 12/17/2024 07:20 AM [facility] [id number] Evaluation note* Diagnosis Onset Date Resolution Status Admit Date Lung nodule, solitary chronic Mar ch 2024 8:02am Morbid obesity chronic September 8:02am [facility] Work Phone: 1(512) 958-398403-31-2025 Evaluation note* Diagnosis Onset Date Resolution Status Admit Date Lung nodule, solitary chronic Mar ch 2024 8:02am Morbid obesity chronic September 8:02am Dyspnea acute October 25 7:34am Lung nodule, solitary chronic Apr 2024 7:34am Morbid obesity chronic October 7:34am MARIELENA (obstructive sleep apnea) chroni c October 25, 2024 7:34am [facility] Work Phone: 1(678) 395-251503-31-2025 Evaluation note* Diagnosis Onset Date Resolution Status Admit Date Lung nodule, solitary chronic Mar ch 2024 8:02am Morbid obesity chronic September 8:02am Dyspnea acute October 25 7:34am Lung nodule, solitary chronic Apr 2024 7:34am Morbid obesity chronic October 7:34am MARIELENA (obstructive sleep apnea) chroni c October 25, 2024 7:34am Coronary artery disease chronic J une 2024 1:20pm Essential hypertension chronic Ju ne 2024 1:20pm History of atrial fibrillation chron ic December 26, 2024 1:20pm HLD (hyperlipidemia) chronic December 26, 2024 1:20pm Lower extremity edema chronic Jordan e 2024 1:20pm Morbid obesity chronic December 26, 2024 1:20pm MARIELENA (obstructive sleep apnea) chroni c December 26, 2024 1:20pm [facility] Work Phone: 1(783) 515-279812-13-2024 Evaluation note* Diagnosis Onset Date Resolution Status Admit Date Lung nodule, solitary chronic Dec ember 2023 11:12am Morbid obesity chronic June 092023 11:12am MARIELENA (obstructive sleep apnea) chronic June 21, 2 024 11:12am Lung nodule, solitary chronic Mar ch 2024 8:02am Morbid obesity chronic September 8:02am [facility] Work Phone: 1(558) 151-510612-05-2024 Hospital Discharge instructions Patient Education 06/13/2024 08:40:35 [...] the bandage (dressing) after 24 hours. Take odfy-hcy-tkoozol and prescription medicines only as told by your health care provider. Keep all follow-up visits as told by your health care provider. This is important. Contact a health care provider if: You have a fever. You continue to have pain and soreness around the injection site, even after taking zvbf-ufr-ojakerz pain medicine. You have severe, sudden, or [...] 10/11/2011 Document Revised: 06/08/2018 Document Reviewed: 10/11/2016 [employer] Patient Education 2019 Spectral Image. 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 05/20/24 +/- 4 day(s), Lumbar epidural steroid injection with x-ray, Local, Neurogenic claudication, Left L2-3 with contrast, Hold Eliquis for 4 days for spinal procedure, Future Order, 4, day(s), 3, week(s), In Approximately, PM Office, PM Mass... 2. Lumbar postlaminectomy syndrome Ordered: PM Inj Spine L/S With Imaging 64119(Epidural Injection, Lumbar/Sacral/Caudal w/ Imaging (PM Procedure) 47330), *Est. 05/20/24 +/- 4 day(s), Lumbar epidural steroid injection with x-ray, Local, Neurogenic claudication, Left L2-3 with contrast, Hold Eliquis for 4 days for spinal procedure, Future Order, 4, day(s), 3, week(s), In Approximately, PM Office, PM Mass... 3. Spondylolisthesis of lumbar region Continue lumbar flexion exercises Ordered: PM Inj Spine L/S With Imaging 58796(Epidural Injection, Lumbar/Sacral/Caudal w/ Imaging (PM Procedure) 33447), *Est. 05/20/24 +/- 4 day(s), Lumbar epidural [...] Ordered: PM Inj Spine L/S With Imaging 23617(Epidural Injection, Lumbar/Sacral/Caudal w/ Imaging (PM Procedure) 07228), *Est. 05/20/24 +/- 4 day(s), Lumbar epidural [...] C screening test Nephrolithiasis Neurogenic claudication Old CA (myocardial infarction) MARIELENA treated with BiPAP Osteoarthritis [...] RICKEY HUNG MD on 06/13/2024 08:[address] [facility] [id number] Summary of episode note Discharge Instructions Thank [...] Contact Information StatusPC OV 08/14/2024 10:00 AM ERICA MANASA ZENDEJAS DO [facility] Confirmed CV OV 01/13/2025 10:15 AM [facility] [place] Confirmed Medications Please ask your primary doctor [...] the bandage (dressing) after 24 hours. Take cfgp-lfd-dqjvcns and prescription medicines only as told by your health care provider. Keep all follow-up visits as told by your health care provider. This is important. Contact a health care provider if: You have a fever. You continue to have pain and soreness around the injection site, even after taking iord-lxw-lqcwhdb pain medicine. You have severe, sudden, or [...] Document Reviewed: 10/11/2016 Elsevier Patient Education 2020 [employer]. Additional Information VACCINATE! IT SAVES LIVES! Members of the community who have not yet received the COVID-19 vaccine and would like to receive it can visit one of [facility] vaccine clinics. There are many vaccine clinic locations within the [facility]. For locations and available times, please visit [email or web address] It is important to note that some COVID mobile vaccine clinics are held outdoors and may be canceled in rainy or stormy conditions. To learn more about pediatric vaccinations (ages 5-11), we invite you to visit the [facility] webpage. https://www.[facility].org/pages/6758-Mdovx-Jvscqgouvmf-Vfytxnggsb-Hdwxl-Dte stions.htmlTo learn more about the COVID-19 vaccine, we invite you to visit the CDC website for a list of frequently asked questions.https://www.cdc.gov/coronavirus/2019-ncov/vaccines/faq.html [facility] Patient Portal Access Instructions: Stay connected with your healthcare team and access your personal medical information anytime with the [facility] Patient Portal. Please follow the directions below to create your [facility] account: 1.Access the email account you provided upon registration to the hospital/physician office.2.Look for an invitation email from [facility].3.Open the email and access the invitation link: AcceptInvitation to [facility].4.Fill in the required perez to create your account. To access your account, visit Orgger/RFinityhart. Click the blue button labeled Access Patient [...] who you will allowto register on the [facility] Patient Portal for access to your information. You can also access the [facility] Patient Portal on the [employer] mali. Simply click on Patient Portal and then log into your account. If you would like to receive a full copy of your medical records, please contact the [facility] Medical Records Department by calling [phone], Monday through Monday between 8 a.m. and [...] Call your local pharmacy or go to http://Compliance [email or web address].Xuzhou Microstarsoft/[email or web address] to find one close to you.3.Make use of household items: Use cat litter or old coffee grounds to dispose medications if other options arenot available. Mix your drugs with these household products, seal them in an airtight container andthrow it into the garbage. Call [facility]: [phone] to be sure your drugs can be [...] am aware that I should contactmy doctor. Patient/Operations Coordinator Signature: Date/Time: Relationship to Patient: Witness Name/Signature: Date/Time: [facility] [id number] Hospital Discharge instructions Patient Education 01/30/2024 07:58:57 Epidural Steroid Injection, Care After Hung (42110) Epidural Steroid Injection, Care After Refer to [...] the bandage (dressing) after 24 hours. Take aliy-dcv-mhbandh and prescription medicines only as told by your health care provider. Keep all follow-up visits as told by your health care provider. This is important. Contact a health care provider if: You have a fever. You continue to have pain and soreness around the injection site, even after taking ncct-imb-bqpnnrf pain medicine. You have severe, sudden, or [...] 10/11/2011 Document Revised: 06/08/2018 Document Reviewed: 10/11/2016 [employer] Patient Education 2020 Spectral Image. [facility] 07-23-2024 Summary of episode [...] Wellness Medicare 02/09/2024 09:00 AMEDT MANASA ZENDEJAS DO [facility] Confirmed CV OV 01/13/2025 10:15 AM EDT Kina [facility] [place] Confirmed The Following Activity and Diet Have [...] the bandage (dressing) after 24 hours. Take vcdn-bwq-rfhonnj and prescription medicines only as told by your health care provider. Keep all follow-up visits as told by your health care provider. This is important. Contact a health care provider if: You have a fever. You continue to have pain and soreness around the injection site, even after taking drqj-qcb-nhjmbpz pain medicine. You have severe, sudden, or [...] 10/11/2011 Document Revised: 06/08/2018 Document Reviewed: 10/11/2016 ElseFibroGen Patient Education 2020 [employer]. Additional Information VACCINATE! IT SAVES LIVES! Members of the community who have not yet received the COVID-19 vaccine and would like to receive it can visit one of [facility] vaccine clinics. There are many vaccine clinic locations within the [facility]. For locations and available times, please visit [email or web address]/. It is important to note that some COVID mobile vaccine clinics are held outdoors and may be canceled in rainy or stormy conditions. To learn more about pediatric vaccinations (ages 5-11), we invite you to visit the [facility] webpage. https://www.[facility].org/pages/2733-Plyqt-Elqpqbzwvua-Fdfqrqnqkh-Wuerh-Bih stions.htmlTo learn more about the COVID-19 vaccine, we invite you to visit the CDC website for a list of frequently asked questions.https://www.cdc.gov/coronavirus/2019-ncov/vaccines/faq.html [facility] Patient Portal Access Instructions: Stay connected with your healthcare team and access your personal medical information anytime with the [facility] Patient Portal. Please follow the directions below to create your [facility] account: 1.Access the email account you provided upon registration to the hospital/physician office.2.Look for an invitation email from [facility].3.Open the email and access the invitation link: AcceptInvitation to [facility].4.Fill in the required perez to create your account. To access your account, visit Orgger/[employer].t. Click the blue button labeled Access Patient Portal and then log in with the username and password that you created in the steps above. You will be able to view your test results, lab results, a summary of your visits, upcoming appointments and more. There is also a convenient messaging option where you can send secure messages to your p Werdsmithvider. In addition, you will have the ability to download any documents or summaries to your computer and/or send the information securely to a physician. Remember that your healthcare information is confidential, so carefully consider who you will allowto register on the [facility] Patient Portal for access to your information. You can also access the [facility] Patient Portal on the [employer] mali. Simply click on Patient Portal and then log into your account. If you would like to receive a full copy of your medical records, please contact the [facility] Medical Records Department by calling [phone], Monday through Monday between 8 a.m. and [...] Call your local pharmacy or go to http://Compliance 360.Xuzhou Microstarsoft/[email or web address] to find one close to you.3.Make use of household items: Use cat litter or old coffee grounds to dispose medications if other options arenot available. Mix your drugs with these household products, seal them in an airtight container andthrow it into the garbage. Call [facility]: [phone] to be sure your drugs can be [...] Education Materials Epidural Steroid Injection, Care After [place] (25160) Medication Leaflets My discharge plan and instructions have been reviewed and explained to me and I,KRYSTYNA PADGETT understand my current condition and have read and understand these discharge instructions. I have received a written copy of the plan/instructions. If I have questions, I am aware that I should contactmy doctor. 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., 06/24/2019 Nutrition/Health Caffeine intake amount: none., [...] C screening test Nephrolithiasis Neurogenic claudication Old CA (myocardial infarction) MARIELENA treated with BiPAP Osteoarthritis Paroxysmal A-fib Peripheral vascular disease Previous back surgery PSA elevation PVCs (premature ventricular contractions) S/P ablation of atrial fibrillation Screen for colon cancer Screening due Screening for prostate cancer Severe obstructive sleep apnea Spondylolisthesis of lumbar region Procedure/Surgical History Ablation - action: 06/01/23 Left knee: 01/23/15 Left shoulder: 08/22/13 Right shoulder: 02/19/09 Back Allergies rosuvastatin (Moderate) severe myalgias Betaxolol Hydrochloride Low heart rate CloNIDine HCl Unknown lisinopril Angioedema [1] [1] Specialty Office Visit Note; RICKEY HUNG MD 12/26/2023 12:07 EDT Digitally Signed by RICKEY HUNG MD on 01/30/2024 07:[address] [facility] [id number] Hospital Discharge instructions Patient Education 07/27/2023 10:44:09 [...] the bandage (dressing) after 24 hours. Take abwd-wdw-efmjmus and prescription medicines only as told by your health care provider. Keep all follow-up visits as told by your health care provider. This is important. Contact a health care provider if: You have a fever. You continue to have pain and soreness around the injection site, even after taking fkrt-ykj-ibltyoy pain medicine. You have severe, sudden, or [...] 10/11/2011 Document Revised: 06/08/2018 Document Reviewed: 10/11/2016 [employer] Universe Patient Education 2020 Spectral Image. [facility] 01-18-2024 Summary of episode [...] Where Contact InformationPC OV 08/11/2023 10:00 AM EST MANASA ZENDEJAS [facility] CV OV 01/15/2024 10:30 AM [facility] [place] The Following Activity and Diet Have Been [...] the bandage (dressing) after 24 hours. Take ldpd-mzc-cyjztdx and prescription medicines only as told by your health care provider. Keep all follow-up visits as told by your health care provider. This is important. Contact a health care provider if: You have a fever. You continue to have pain and soreness around the injection site, even after taking xqxn-mlm-envbkwe pain medicine. You have severe, sudden, or [...] 10/11/2011 Document Revised: 06/08/2018 Document Reviewed: 10/11/2016 Solar Universe Patient Education 2020 [employer]. Additional Information VACCINATE! IT SAVES LIVES! Members of the community who have not yet received the COVID-19 vaccine and would like to receive it can visit one of [facility] vaccine clinics. There are many vaccine clinic locations within the [facility]. For locations and available times, please visit https://[email or web address]/. It is important to note that some COVID mobile vaccine clinics are held outdoors and may be canceled in rainy or stormy conditions. To learn more about pediatric vaccinations (ages 5-11), we invite you to visit the [facility] webpage. https://www.[facility].org/pages/0176-Iqhew-Twogazyoime-Embrmskgow-Gkkuw-Que stions.htmlTo learn more about the COVID-19 vaccine, we invite you to visit the CDC website for a list of frequently asked questions.https://www.cdc.gov/coronavirus/2019-ncov/vaccines/faq.html [facility] Patient Portal Access Instructions: Stay connected with your healthcare team and access your personal medical information anytime with the [facility] Patient Portal. Please follow the directions below to create your [facility] account: 1.Access the email account you provided upon registration to the hospital/physician office.2.Look for an invitation email from [facility].3.Open the email and access the invitation link: AcceptInvitation to [facility].4.Fill in the required perez to create your account. To access your account, visit [email or web address]. Click the blue button labeled Access Patient [...] who you will allowto register on the [facility] Patient Portal for access to your information. You can also access the [facility] Patient Portal on the [employer] mali. Simply click on Patient Portal and then log into your account. If you would like to receive a full copy of your medical records, please contact the [facility] Medical Records Department by calling [phone], Monday through Monday between 8 a.m. and [...] Call your local pharmacy or go to http://Compliance 360.Xuz[employer]star[employer]/4S5Ps6e to find one close to you.3.Make use of household items: Use cat litter or old coffee grounds to dispose medications if other options arenot available. Mix your drugs with these household products, seal them in an airtight container andthrow it into the garbage. Call [facility]: [phone] to be sure your drugs can be [...] am aware that I should contactmy doctor. Patient/Operations Coordinator Signature: Date/Time: Relationship to Patient: Witness Name/Signature: Date/Time: [facility] [id number] History and physical note History and Physical [...] Hung who is being followed up by [facility] for chronic pain. Today's pain is 7/10. Described as stabbing and itfh-kbb-pnaxbtv. Today's pain is located in the left [...] no assistive device. 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 Hung. Reviewed preprocedure instructions and requirements, patient [...] blood thinner request form filled out by [facility] that he is to stop [...] C screening test Nephrolithiasis Neurogenic claudication Old CA (myocardial infarction) MARIELENA treated with BiPAP Osteoarthritis [...] [1] Specialty Office Visit Note; MARCOS BANDA APRN-OFFICE CLERK ROUTINE 06/30/2023 13:32 EST Digitally Signed by RICKEY HUNG MD on 07/27/2023 10:[address] [facility] [id number] Hospital Discharge instructions Patient Education 03/15/2023 09:20:56 Epidural Steroid Injection, Care After Abhilash (40084) Epidural Steroid Injection, Care After Refer to [...] the bandage (dressing) after 24 hours. Take ewkl-irv-tyopjvv and prescription medicines only as told by your health care provider. Keep all follow-up visits as told by your health care provider. This is important. Contact a health care provider if: You have a fever. You continue to have pain and soreness around the injection site, even after taking uavh-djj-inbjryk pain medicine. You have severe, sudden, or [...] 10/11/2011 Document Revised: 06/08/2018 Document Reviewed: 10/11/2016 Solar Universe Patient Education 2020 Spectral Image. [facility] 09-06-2023 Summary of episode [...] InformationPC OV 08/11/2023 10:00 AM MANASA SAUCEDO [facility] CV OV 01/15/2024 10:30 AM EDT [facility] [place] Allergies rosuvastatin (severe myalgias) Betaxolol Hydrochloride (Low [...] the bandage (dressing) after 24 hours. Take onrk-cum-ebmdizq and prescription medicines only as told by your health care provider. Keep all follow-up visits as told by your health care provider. This is important. Contact a health care provider if: You have a fever. You continue to have pain and soreness around the injection site, even after taking vqnu-kza-bepzfhl pain medicine. You have severe, sudden, or [...] 10/11/2011 Document Revised: 06/08/2018 Document Reviewed: 10/11/2016 [employer] Patient Education 2020 [employer]. Additional Information VACCINATE! IT SAVES LIVES! Members of the community who have not yet received the COVID-19 vaccine and would like to receive it can visit one of [facility] vaccine clinics. There are many vaccine clinic locations within the [facility]. For locations and available times, please visit [email or web address]://[email or web address]/. It is important to note that some COVID mobile vaccine clinics are held outdoors and may be canceled in rainy or stormy conditions. To learn more about pediatric vaccinations (ages 5-11), we invite you to visit the [facility] webpage. https://www.[facility].org/pages/9416-Wzxrj-Hcgjrasdrcw-Aimvhugoma-Lktmb-Acf stions.htmlTo learn more about the COVID-19 vaccine, we invite you to visit the CDC website for a list of frequently asked questions.https://www.cdc.gov/coronavirus/2019-ncov/vaccines/faq.html [facility] Patient Portal Access Instructions: Stay connected with your healthcare team and access your personal medical information anytime with the [facility] Patient Portal. Please follow the directions below to create your [facility] [employer] account: 1.Access the email account you provided upon registration to the hospital/physician office.2.Look for an invitation email from [facility].3.Open the email and access the invitation link: AcceptInvitation to [facility].4.Fill in the required perez to create your account. To access your account, visit Orgger/GreeneAcumen PharmaceuticalsOneChart. Click the blue button labeled Access Patient [...] who you will allowto register on the [facility] Patient Portal for access to your information. You can also access the [facility] Patient Portal on the [employer] mali. Simply click on Patient Portal and then log into your account. If you would like to receive a full copy of your medical records, please contact the [facility] Medical Records Department by calling [phone], Monday through Monday between 8 a.m. and [...] Call your local pharmacy or go to http://Compliance 360.Xuzhou [employer]starsoft/4L6Sy2y to find one close to you.3.Make use of household items: Use cat litter or old coffee grounds to dispose medications if other options arenot available. Mix your drugs with these household products, seal them in an airtight container andthrow it into the garbage. Call [facility]: [phone] to be sure your drugs can be [...] Education Materials Epidural Steroid Injection, Care After Abhilash (13966) Medication Leaflets My discharge plan and instructions have been reviewed and explained to me and I,KRYSTYNA PADGETT understand my current condition and have read and understand these discharge instructions. I have received a written copy of the plan/instructions. If I have questions, I am aware that I should contactmy doctor. Patient/Operations Coordinator Signature: Date/Time: Relationship to Patient: Witness Name/Signature: Date/Time: [facility] [id number] History and physical note History and Physical [...] He describes it as an aching and hwhw-pky-wnklynw sensation affecting the left lower back radiating [...] with speech : No Anastacia Araiza LPN 02/14/2023 7:02 EDT Stomach/Bowel Review of Systems Grid Constipation : No Diarrhea : No Nausea : No Vomiting : No Anastacia Araiza LPN 02/14/2023 7:02 EDT Hematology Review of Systems Grid Bleeds Easily : Yes Blood Clots : No Low Blood Count : No Anastacia Araiza LPN - 02/14/2023 7:02 EDT Sleep Review of Systems Grid Daytime Sleepiness : No Fatigue : No Insomnia : No Snoring : No [2] I have reviewed and assessed the [place] Automated Rx Reporting System (OARRS) report for [...] plantarflexion are intact. MUSCULOSKELETAL: Gait normal . Trigonometry Tutor strength equal Strengths 5/5 in upper and 5/5 in lower extremities. Lumbar spine range of motion intact. Good muscle tone to upper and lower extremities. Tenderness when palpating the lower lumbar spine, more to the left. Muscle tension noted throughout without trigger points. 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 Lumbar stenosis with neurogenic claudication Ordered: PM Inj Spine L/S With Imaging 91697 3. Lumbar radiculopathy Ordered: PM Inj Spine L/S With Imaging 92929 4. Anticoagulated by anticoagulation treatment Ordered: PM Inj Spine L/S With Imaging 75839 Problem List/Past Medical History Ongoing Actinic keratoses [...] C screening test Nephrolithiasis Neurogenic claudication Old CA (myocardial infarction) MARIELENA treated with BiPAP Osteoarthritis [...] [1] Specialty Office Visit Note; GOKUL JANG APRN-DEVON 02/14/2023 07:52 EDT Digitally Signed by RICKEY HUNG MD on 03/15/2023 08:47 AM [facility] [id number] Discharge summary Hospital Course Patient underwent uncomplicated [...] 01/13/2023 11:15 AM EDT Where: [address] [facility] [address] [facility] [place] [address]- [phone] Follow Up Appointments No qualifying data available. Follow Up Labs/Studies Discharge Labs No Follow-up Labs Discharge Studies No Follow-up Studies Discharge Diet No qualifying data available. Discharge Activity No qualifying data available. Digitally Signed by HERVE OLIVAREZ MD on 11/11/2022 01:52 PM [id number] Discharge instructions Patient Education 11/11/2022 09:21:51 [...] need to report the following to your furniture technician: ?Any draining or oozing from the site [...] Document Reviewed: 06/27/2014 ExitCare Patient Information 2015 [employer] This information is not intended to replace advicegiven to you by your health care provider. Make sure you discuss any questions you have with your health care provider. Follow Up Care 09/20/2022 14:22:03 With:HERVE OLIVAREZ MD Address: [address] [facility] [address] [place] [address]- [phone] When:01/13/2023 11:15:00 [facility] 05-05-2023 Summary of episode note Discharge Instructions Thank you for allowing [facility] to assist you with your healthcare needs. The following is importantdischarge information regarding your hospital visit. Your Care Team MANASA ZENDEJAS DO What to do next Scheduled Follow-Up Appointments Appointment Type When With Where Contact InformationPC OV 11/16/2022 09:30 AM EDT MANASA ZENDEJAS [facility] PET/CT Initial Staging Tumor Skull Base 11/21/2022 07:15 AM EDT Radiology [phone] PM OV 11/25/2022 12:00 PM EDT RICKEY HUNG MD [facility] CV OV 01/13/2023 11:15 AM EDT [facility] Follow Up Appointments Follow Up with HREVE OLIVAREZ MD When 01/13/2023 11:15 AM EDT Where: [address] [place] [address] Allergies rosuvastatin (severe myalgias) Betaxolol Hydrochloride (Low heart rate) CloNIDine HCl (Unknown) lisinopril (Angioedema) Medications Please ask your primary doctor or pharmacist before taking any other medication not listed, including over the counter drugs, herbal medications, vitamins and or supplements as they may interact [facility] medications. What How Much When Instructions Last Dose New pantoprazole (pantoprazole 40 mg oral enteric coated tablet) 1 tab(s) by mouth Once a day [id number] Unchanged allopurinol (allopurinol 100 mg oral tablet) [...] instructions 1 tab(s) Oral BID Pharmacy Information [id number]: [address], [place] [id number] [phone] Please take this list to your next [...] need to report the following to your furniture technician: ? Any draining or oozing from the [...] Document Reviewed: 06/27/2014 ExitCare Patient Information 2015 [employer] [facility]. This information is not intended to replace advicegiven to you by your health care provider. Make sure you discuss any questions you have with your health care provider. Additional Information VACCINATE! IT SAVES LIVES! Members of the community who have not yet received the COVID-19 vaccine and would like to receive it can visit one of [facility] vaccine clinics. There are many vaccine clinic locations within the [facility]. For locations and available times, please visit [email or web address]/. It is important to note that some COVID mobile vaccine clinics are held outdoors and may be canceled in rainy or stormy conditions. To learn more about pediatric vaccinations (ages 5-11), we invite you to visit the [facility] webpage. https://www.[employer].org/pages/1402-Jsriv-Vyfvqdbfotr-Nvjxkcitik-Nnule-Kan stions.htmlTo learn more about the COVID-19 vaccine, we invite you to visit the CDC website for a list of frequently asked questions. https://www.cdc.gov/coronavirus/2019-ncov/vaccines/faq.html [facility] Patient Portal Access Instructions: Stay connected with your healthcare team and access your personal medical information anytime with the [facility] Patient Portal.If you would like a full copy of your medical records, please contact the [facility] Medical Records Department, Monday through Monday between 8a.m. and 4:30p.m. Please follow the directions below to access the portal: 1.Access the email account you provided upon registration to the hospital.2.Look for an invitation email from [facility].3.Open the email and access the invitation link: Accept Invitation to [facility]4.Fill in the required perez to create your account. Sign into [email or web address] with your username and password that you [...] you will allow to register on the [facility] Patient Portal for access to your information. You can also access the [employer] Patient Portal on the Hired. Simply click on Health Records under [email or web address] and then click on the [employer] logo. HOW TO SAFELY DISPOSE OF PRESCRIPTION [...] Call your local pharmacy or go to http://Compliance 360.Xuzhou Microstarsoft/8H5Go2g to find one close to you.3.Make use of household items: Use cat litter or old coffee grounds to dispose medications if other options arenot available. Mix your drugs with these household products, seal them in an airtight container andthrow it into the garbage. Call [facility]: [phone] to be sure your drugs can be [...] am aware that I should contactmy doctor. Patient/Operations Coordinator Signature: Date/Time: Relationship to Patient: Witness Name/Signature: Date/Time: [facility]om[facility]12[facility]-8260 Evaluation + Plan noteExtracted from: Title:History and Physical Author:HERVE OLIVAREZ MD Date:11/10/22 Orders: Ablation RF-CARTO - CV IV Catheter Insertion/Care Prn Adapter Sign Consent Future Appointments Appointment Date:11/16/2022 09:30:00 AM Scheduled Provider:MANASA ZENDEJAS DO Location[facility] Appointment Type:PC OV Appointment Date:11/21/2022 07:15:00 AM Scheduled Provider: Location:[facility] Appointment Type:PET/CT Initial Staging Tumor Skull Base Appointment Date:11/25/2022 12:00:00 PM Scheduled Provider:RICKEY HUNG MD Location:PM Office Appointment Type:PM OV Appointment Date:01/13/2023 11:15:00 AM Scheduled Provider: Location:[facility] Appointment Type:CV OV Future Scheduled Tests Radiology* PET/CT 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 11/21/22 [facility] 05-04-2023 Anesthesiology Consult note Patient: KRYSTYNA PADGETT [...] [place] APONTE MD on 11/10/2022 11:38 AM [facility]jezwuim47-54-3536 History and physical note History of Present [...] C screening test Nephrolithiasis Neurogenic claudication Old CA (myocardial infarction) Osteoarthritis Previous back surgery PSA [...] 11/10/2022 Employment/School Status: Employed., 09/20/2022 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 Digitally Signed by HERVE OLIVAREZ MD on 11/10/2022 11:05 AM [facility]awgvje46-17-9128 Anesthesiology Consult note Patient: KRYSTYNA PADGETT Age: [...] Daily, # 90 tab(s), 1 Refill(s), Pharmacy: [facility], 167, cm, 05/19/22 11:15:00 EST, Height allopurinol 100 mg oral tablet: Dose : 100 mg = 1 tab(s), Oral, BID, # 180 tab(s), 1 Refill(s), Pharmacy: [facility], 167, cm, 05/19/22 11:15:00 EST, Height, kg, 05/19/22 11:15:00 EST, Dosing Weight amLODIPine 5 mg oral tablet: Dose : 5 mg = 1 tab(s), Oral, qDay, # 90 tab(s), 1 Refill(s), Pharmacy: [facility], 167, cm, 05/19/22 11:15:00 EST, Height hydrochlorothiazide-spironolactone 25 mg-25 mg oral tablet: Dose = 1 tab(s), Oral, Daily, # 90 tab(s), 1 Refill(s), Pharmacy: [facility], 167, cm, 05/19/22 11:15:00 EST, Height nitroglycerin 0.4 mg sublingual tablet: 0.4 mg Dose = 1 tab(s), Sublingual, q5min, PRN for chest pain, not to exceed 3 doses/15 min--if pain persists, seek medical attention, # 100 tab(s), 0 Refill(s), Pharmacy: [facility], 167, cm, 05/19/22 11:15:00 EST, Height Documented Medications Documented Eliquis 5 mg oral tablet: Dose : 5 mg = 1 tab(s), Oral, BID, 0 Refill(s), 122.25 potassium citrate 15 mEq oral tablet, extended release: See Instructions, 1 tab(s) Oral BID, 0 Refill(s), No qualifying data available Problem list: Medical At low risk for fall / SNOMED CT 9499619590 / Confirmed Aortic atherosclerosis / SNOMED CT 626847501 / Confirmed Afib / SNOMED CT 97834147 / Confirmed BMI 45.0-49.9, adult / SNOMED CT 7352445468 / Confirmed CAD - Coronary artery disease / SNOMED CT 6239521063 / Confirmed Chest pain / SNOMED CT 44701462 / Confirmed DDD (degenerative disc disease), lumbar / SNOMED CT 77335292 / Confirmed Anticoagulated by anticoagulation treatment / SNOMED CT 900933205 / Confirmed Gout / SNOMED CT 246337966 / Confirmed Previous back surgery / SNOMED CT 511447570 / Confirmed HLD - Hyperlipidemia / SNOMED CT 928314293 / Confirmed Hypersomnolence / SNOMED CT 963668407 / Confirmed Hypertension / SNOMED CT 70739899 / Confirmed Immunization due / SNOMED CT 450747028 / Confirmed Nephrolithiasis / SNOMED CT 995709141 / Confirmed Lumbar postlaminectomy syndrome / SNOMED CT 502977915 / Confirmed Lumbar radiculopathy / SNOMED CT 251058978 / Confirmed Spondylolisthesis of lumbar region / SNOMED CT 7192723795 / Confirmed Immunization refused / SNOMED CT 8279417663 / Confirmed Morbid obesity / SNOMED CT 128583037 / Confirmed Actinic keratoses / SNOMED CT 4441470998 / Confirmed PVCs (premature ventricular contractions) / SNOMED CT 1552908087 / Confirmed Neurogenic claudication / SNOMED CT 171178622 / Confirmed Lung nodule / SNOMED CT 8784903341 / Confirmed Severe obstructive sleep apnea / SNOMED CT 109732342 / Confirmed Old CA (myocardial infarction) / SNOMED CT 0587056 / Confirmed Osteoarthritis / SNOMED CT 0118965050 / Confirmed History of bilevel positive airway pressure (BiPAP) therapy / SNOMED CT 0050154924 / Confirmed Encounter for well adult exam with abnormal findings / SNOMED CT 653499348 / Confirmed Screening for prostate cancer / SNOMED CT 434701714 / Confirmed Screen for colon cancer / SNOMED CT 985690164 / Confirmed Depression screen / SNOMED CT 883227621 / Confirmed PSA elevation / SNOMED CT 0118796263 / Confirmed Screening due / SNOMED CT 124927245 / Confirmed Lumbar stenosis with neurogenic claudication / SNOMED CT 50018377 / Confirmed Statin intolerance / SNOMED CT 8005319476 / Confirmed Need for hepatitis C screening test / SNOMED CT 275432419 / Confirmed, Active Problems (37) Actinic keratoses [...] C screening test Nephrolithiasis Neurogenic claudication Old CA (myocardial infarction) Osteoarthritis Previous back surgery PSA [...] 09/21/2022 at 67 Years. Comments: 09/21/2022 9:09 ANNAT - Kerrie Up RN auto-populated from documented surgical case PM Inj Spine L/S With Imaging SN on 04/06/2022 at 66 Years. Comments: 04/06/2022 8:21 EDT - Renetta Littlejohn RN auto-populated from documented surgical case Cardiac catheterisation ([id number]) on 11/08/2015 at 60 Years. Left knee ([id number]) on 01/23/2015 at 59 Years. Left shoulder (113489480) on 08/22/2013 at 58 Years. Hernia (068884334) in the month of 04/2009 at 53 Years. Right shoulder (808323229) on 02/19/2009 at 53 Years. Back (832232308). 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 Physical Examination Vital Signs(last 24 hrs) Last Charted Resp Rate 16 br/min (NOVEMBER 10 06:22) JKZ518 mmHg (NOVEMBER 10 06:22) DBP75 mmHg (NOVEMBER 10 06:22) BMI41.47 (NOVEMBER 10 06:22) Measurements from flowsheet : Measurements 11/10/2022 6:22 EDT Height 167.6 cm Height in inches 66 inch(es) Admission Weight 116.5 kg Weight Lbs 256.3 lb Weight Method Actual [place] Body Weight 63.76 kg Body Mass Index [...] Documentation reviewed: Current records. Assessment and Plan [place] Society of Anesthesiologists (ASA) physical status classification: Class III. Anesthetic Preoperative Plan Premedication: intravenous. Anesthetic technique: General. Induction: intravenously. Maintenance airway: Oral endotracheal tube. Special Monitoring: Arterial line. Postoperative pain management: Per surgeon. Informed consent: signed by patient. Notes: Brisa. Digitally Signed by CINDY MAHER MD on 11/10/2022 07:50 AM [facility]hd[facility]mi[facility]-2081 Hospital Discharge instructions Patient Education 09/21/2022 08:40:58 [...] the bandage (dressing) after 24 hours. Take qnwx-ers-dbreffc and prescription medicines only as told by your health care provider. Keep all follow-up visits as told by your health care provider. This is important. Contact a health care provider if: You have a fever. You continue to have pain and soreness around the injection site, even after taking eemf-vke-gbtvaij pain medicine. You have severe, sudden, or [...] 10/11/2011 Document Revised: 06/08/2018 Document Reviewed: 10/11/2016 [employer] Patient Education 2020 Spectral [employer]. [facility] 03-15-2023 Summary of episode [...] 11/16/2022 09:30 AM EDT MANASA ZENDEJAS DO [facility] CV OV 12/21/2022 11:45 AM EDT [facility] [place] Allergies rosuvastatin (severe myalgias) Betaxolol Hydrochloride (Low [...] the bandage (dressing) after 24 hours. Take iefn-xow-ddvpkcs and prescription medicines only as told by your health care provider. Keep all follow-up visits as told by your health care provider. This is important. Contact a health care provider if: You have a fever. You continue to have pain and soreness around the injection site, even after taking nuji-vcl-rcpedyw pain medicine. You have severe, sudden, or [...] 10/11/2011 Document Revised: 06/08/2018 Document Reviewed: 10/11/2016 [employer]Fib[employer] Patient Education 2020 [employer] Additional Information VACCINATE! IT SAVES LIVES! Members of the community who have not yet received the COVID-19 vaccine and would like to receive it can visit one of [facility] vaccine clinics. There are many vaccine clinic locations within the [facility]. For locations and available times, please visit [email or web address]/. It is important to note that some COVID mobile vaccine clinics are held outdoors and may be canceled in rainy or stormy conditions. To learn more about pediatric vaccinations (ages 5-11), we invite you to visit the [employer] webpage. https://www.[employer].org/pages/7009-Lnymh-Zkljmxzuhes-Jeashnzjpv-Ryfgn-Mdz stions.htmlTo learn more about the COVID-19 vaccine, we invite you to visit the CDC website for a list of frequently asked questions. https://www.cdc.gov/coronavirus/2019-ncov/vaccines/faq.html [facility] Patient Portal Access Instructions: Stay connected with your healthcare team and access your personal medical information anytime with the [facility] Patient Portal.If you would like a full copy of your medical records, please contact the [facility] Medical Records Department, Monday through Monday between 8a.m. and 4:30p.m. Please follow the directions below to access the portal: 1.Access the email account you provided upon registration to the [facility].2.Look for an invitation email from [facility].3.Open the email and access the invitation link: Accept Invitation to [facility]4.Fill in the required perez to create your account. Sign into [email or web address] with your username and password that you [...] you will allow to register on the [employer] Patient Portal for access to your information. You can also access the [employer] Patient Portal on the [employer] mali. Simply click on Health Records under [email or web address] and then click on the [employer] logo. HOW TO SAFELY DISPOSE OF PRESCRIPTION [...] Call your local pharmacy or go to http://Compliance 360.Xuzhou Microstarsoft/9F0Db4p to find one close to you.3.Make use of household items: Use cat litter or old coffee grounds to dispose medications if other options arenot available. Mix your drugs with these household products, seal them in an airtight container andthrow it into the garbage. Call [facility]: [phone] to be sure your drugs can be [...] been reviewed and explained to me and I,LORIN KRYSTYNA Kenneth understand my current condition and have read and understand these discharge instructions. I have received a written copy of the plan/instructions. If I have questions, I am aware that I should contactmy doctor. Patient/Operations Coordinator Signature: Date/Time: Relationship to Patient: Witness Name/Signature: Date/Time: [facility] [id number] History and physical note History and Physical [...] Patient says that he talk to his filler shredder in [place] who says that theoretically he would have permission to stop Eliquis for epidural steroid injectionsif needed. Patient says that he is going to see his filler shredder the first week of September again. But he would like to schedule the epidural steroid injection. 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 Diabetes: Mother. Heart disease: Mother and Father. Hypertension: Mother. Stroke: Father. Assessment/Plan 1. Lumbar postlaminectomy syndrome Ordered: Ambulatory Office Communication Order PM Inj Spine L/S With Imaging 43920 2. Lumbar stenosis with neurogenic claudication Very [...] Order PM Inj Spine L/S With Imaging [id number] 3. Spondylolisthesis of lumbar region Ordered: Ambulatory Office Communication Order PM Inj Spine L/S With Imaging 49565 4. Morbid obesity Ordered: Ambulatory Office Communication Order PM Inj Spine L/S With Imaging [id number] 5. Anticoagulated by anticoagulation treatment New diagnosis of atrial fibrillation has now been on Eliquis for about 3 months Ordered: PM Inj Spine L/S With Imaging 96214 Problem List/Past Medical History Ongoing Actinic keratoses [...] C screening test Nephrolithiasis Neurogenic claudication Old CA (myocardial infarction) Osteoarthritis Previous back surgery PSA [...] RICKEY HUNG MD on 09/21/2022 08:40 AM [facility] [id number] Hospital Discharge instructions Patient Education 04/06/2022 08:20:13 [...] the bandage (dressing) after 24 hours. Take jyzv-yop-guwcfmh and prescription medicines only as told by your health care provider. Keep all follow-up visits as told by your health care provider. This is important. Contact a health care provider if: You have a fever. You continue to have pain and soreness around the injection site, even after taking evwj-esm-xpedelh pain medicine. You have severe, sudden, or [...] 10/11/2011 Document Revised: 06/08/2018 Document Reviewed: 10/11/2016 [employer] Patient Education 2020 Spectral Image. [facility] Summary of episode [...] the bandage (dressing) after 24 hours. Take sqdy-klv-fpjtujy and prescription medicines only as told by your health care provider. Keep all follow-up visits as told by your health care provider. This is important. Contact a health care provider if: You have a fever. You continue to have pain and soreness around the injection site, even after taking dfos-jbd-tznfpdz pain medicine. You have severe, sudden, or [...] 10/11/2011 Document Revised: 06/08/2018 Document Reviewed: 10/11/2016 [employer] Patient Education 2020 Spectral Image. Additional Information VACCINATE! IT SAVES LIVES! Members of the community who have not yet received the COVID-19 vaccine and would like to receive it can visit one of [facility] vaccine clinics. There are many vaccine clinic locations within the [facility]. For locations and available times, please visit [email or web address]/. It is important to note that some COVID mobile vaccine clinics are held outdoors and may be canceled in rainy or stormy conditions. To learn more about pediatric vaccinations (ages 5-11), we invite you to visit the [facility] webpage. https://www.[facility].org/pages/4092-Eaujg-Vzxjzvjltsq-Dthjwkiywh-Rukuu-Oko stions.htmlTo learn more about the COVID-19 vaccine, we invite you to visit the [facility] website for a list of frequently asked questions. https://[place].org/assets/Wvjxsatv-oqx-Nqqoiqxw/rbufm-Wbwpcte-Hjqsoslzlp _Asked-Questions.pdf [facility] Patient [facility] Access Instructions: Stay connected with your healthcare team and access your personal medical information anytime with the [facility] [employer] Patient Portal.If you would like a full copy of your medical records, please contact the [facility] Medical Records Department, Monday through Monday between 8a.m. and 4:30p.m. Please follow the directions below to access the portal: 1.Access the email account you provided upon registration to the [facility].2.Look for an invitation email from [facility].3.Open the email and access the invitation link: Accept Invitation to [facility]4.Fill in the required perez to create your account. Sign into [email or web address] with your username and password that you [...] you will allow to register on the [facility] Patient Portal for access to your information. You can also access the [facility] Patient Portal on the Hired. Simply click on Health Records under [email or web address] and then click on the [employer] logo. HOW TO SAFELY DISPOSE OF PRESCRIPTION [...] Call your local pharmacy or go to http://bit.ly/4G2Tu7w to find one close to you.3.Make use of household items: Use cat litter or old coffee grounds to dispose medications if other options arenot available. Mix your drugs with these household products, seal them in an airtight container andthrow it into the garbage. Call [facility]: [phone] to be sure your drugs can be [...] am aware that I should contactmy doctor. Patient/Operations Coordinator Signature: Date/Time: Relationship to Patient: Witness Name/Signature: Date/Time: [facility] [id number] History and physical note Date of Service [...] L3-4 done about 20 years ago in [place]. Says he did well for several years [...] take a baby aspirin is followed by [place] cardiology but says he has not had cardiovascular disease but has rhythm problems at times. He does not take full anticoagulation. Patient says despite the pain he still able to do activities he was able to paint a room and he riut those activities at times he has limiting [...] or heat. Most recent MRI was at [facility] in December. Kirit Garibay [facility] 02/11/2022 8:39 EDT General Review of Systems Grid Fever : No Weight Gain : No Weight Loss : No Kirit Garibay [facility] 02/11/2022 8:39 EDT Head and Neck Review of Systems Grid Blurred Vision : No Difficulty swallowing : No Hearing Loss : No Hoarseness : No Loss of Vision : No Sore Throat : No Kirit Garibay [facility] 02/11/2022 8:39 EDT Respiratory/Lungs Review of Systems Grid Coughing : No Shortness of Breath : Yes Kirit Garibay [facility] 02/11/2022 8:39 EDT Skeletal Review of Systems Grid Joints Swelling/Stiffness : Yes Pain in Joint(s) : Yes Kirit Garibay [facility] 02/11/2022 8:39 EDT Heart/Vascular Review of Systems Grid Chest pain/tightness : No Irregular Heartbeat : Yes Rapid Heart Beat : No Kirit Garibay [facility] 02/11/2022 8:39 EDT Neuro Review of Systems [...] : No Trouble with speech : No Kirit Garibay [facility] 02/11/2022 8:39 EDT Heart/Vascular ROS Comments : hx of heart attack in 2012 Kirit Garibay [facility] 02/11/2022 8:39 EDT Stomach/Bowel Review of Systems Grid Constipation : No Diarrhea : No Nausea : No Vomiting : No Kirit Garibay [facility] 02/11/2022 8:39 EDT Urinary Review of Systems Grid Nocturia : No Urinary Incontinence : No Urinary Urgency : No Kirit Garibay [facility] 02/11/2022 8:39 EDT Skin Review of Systems Grid Itching : No Rash : No Sores : No Kirit Garibay [facility] 02/11/2022 8:39 EDT Hematology Review of Systems Grid Bleeds Easily : Yes Blood Clots : No Low Blood Count : No Kirit Garibay [facility] 02/11/2022 8:39 EDT Sleep Review of Systems Grid Daytime Sleepiness : No Fatigue : No Insomnia : Yes Snoring : Yes Kirit Garibay [facility] 02/11/2022 8:39 EDT Hematology ROS Comments : takes ASA d/t blockages; pt goes to [facility] Sleep ROS Comments : pt uses bipap machine Kirit Garibay [facility] 02/11/2022 8:39 EDT Endocrine Review of Systems Grid High Blood Sugar : No Low Blood Sugar : No Kirit Garibay [facility] 02/11/2022 8:39 EDT Psychiatric Review of Systems Grid Anxious : No Kirit Garibay [facility] 02/11/2022 8:39 EDT Primary Pain Pain Symptoms [...] ligamentum flavum hypertrophy. L4-L5: There is a [id number] posterior disc bulge with a mild superimposed central extrusion. There is mild right facet and ligamentum flavum hypertrophy. There is mild left neural foraminal narrowing. L4-L5: There is a jxak-nz-siixoshs posterior disc bulge/pseudo bulge. 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 Spondylolisthesis of lumbar region Grade 1 L4-5 spondylolisthesis grade 2 L5-S1 based on MRI report. To evaluate for any segmental instability we will obtain dynamic x-rays of lumbar spine flexion-extension views order given today. Ordered: Ambulatory Office Communication Order PM Inj Spine L/S With Imaging [id number] XR Spine Lumbar AP/LAT/FLEX/EXT 3. Lumbar stenosis with neurogenic claudication Patient does have radiculopathy pain left leg. I talked to him about epidural steroid injection versus nerve block as he has history of L3-4 laminectomy would recommend a left paramedian epidural steroid injection at the left L2-3 level. Patient does take a baby aspirin recommended by [facility] so we will petition them for [...] Order PM Inj Spine L/S With Imaging [id number] XR Spine Lumbar AP/LAT/FLEX/EXT 4. Morbid obesity Ordered: Ambulatory Office Communication Order PM Inj Spine L/S With Imaging [id number] XR Spine Lumbar AP/LAT/FLEX/EXT 5. Coronary artery disease Unclear cardiac history. Says he does not have coronary disease but does take an antiplatelet drug.Will simply ask [facility] if he can stop aspirin for 7 days before procedure. Ordered: PM Inj Spine L/S With Imaging [id number] XR Spine Lumbar AP/LAT/FLEX/EXT 6. Lumbar radiculopathy [...] C screening test Nephrolithiasis Neurogenic claudication Old CA (myocardial infarction) Osteoarthritis Previous back surgery PSA elevation Screen for colon cancer Screening for prostate cancer Severe obstructive sleep apnea Spondylolisthesis of lumbar region Historical No qualifying data Procedure/Surgical History Left knee: 01/23/15 Left shoulder: 08/22/13 Hernia: 04/2009 Right shoulder: 02/19/09 Back Allergies rosuvastatin (severe myalgias) Betaxolol Hydrochloride (Low heart rate) CloNIDine HCl (Unknown) lisinopril [1] [1] Specialty Office Visit Note; RICKEY HNUG MD 02/11/2022 09:40 EDT Digitally Signed by RICKEY HUNG MD on 04/06/2022 07:[address] [facility] Pain [id number] Evaluation + Plan note Future Scheduled Tests Laboratory* Uric Acid 04/23/21 * Complete Blood Count 04/23/21 * Complete Metabolic Panel 04/23/21 [facility] Discharge summary Author Dr. Singh [facility] October 16, 2022 8:00am Note Date/Time October 16, 2022 6:52 am [facility] Medical Records Department [address] [place] [address] Emergency Department Summary 10/16/22 MR#: [id number] Acct: [id number] Name: KRYSTYNA PADGETT Rep #:[id number] : [...] other surgeries, and it was not recent. [facility] Medical History Atherosclerotic heart disease of [place] coronary artery without angina pectoris Bilateral kidney [...] 74.0 H Lymph % (Auto) 14.9 L Sierra % (Auto) 8.9 Eos % (Auto) 1.6 [...] Clarity Clear Urine pH 5.0 Ur Specific [place] 1.020 Urine Protein 15 H Urine Glucose [...] Primary Care Provider: Manasa Zendejas Referrals: Manasa Zendejas DO [Primary Care Provider] - 3-5 Days if not improving Disposition Disposition: Home, Self Care What to do if you have Problems For any increased pain, shortness of breath, bleeding, nausea or vomiting, chestpain, or any unexpected problems, contact your Primary Care Provider. Call [facility] ([phone]) or report to the closest Emergency Room. Call 911 if necessary. 10/16/22 0800 <Electronically signed by Aditya Singh MD> Cosigner Signature (if applicable): CC: Dr. Manasa Zendejas DO ~ Signed [facility] Work Phone: Evaluation + Plan note Future Appointments Appointment Date:12/22/2021 09:30:00 AM Scheduled Provider:MANASA ZENDEJAS DO [facility] Appoint[facility] Type:PC OV Follow Up Future Scheduled Tests Laboratory* Uric Acid 04/23/21 * Complete Blood Count 04/23/21 * Complete Metabolic Panel 04/23/21 [facility] Pain [facility] Evaluation + Plan note Future Appointments Appointment Date:02/23/2022 09:00:00 AM Scheduled Provider:CALEB AJ MD Location:[facility] Appointment Type:NS NEONATAL PEDIATRIC NURSE Future Scheduled Tests Laboratory* Uric Acid 04/23/21 * Complete Blood Count 04/23/21 * Complete Metabolic Panel 04/23/21 [facility] Evaluation + Plan note Future Appointments Appointment Date:03/16/2022 10:00:00 AM Scheduled Provider: Location:[facility] Appointment Type:PM Inj Spine L/S With Imaging Future Scheduled Tests Laboratory* Uric Acid 04/23/21 * Complete Blood Count 04/23/21 * Complete Metabolic Panel 04/23/21 [facility] Evaluation + Plan note Future Appointments Appointment Date:05/27/2022 07:00:00 AM Scheduled Provider:RICKEY HUNG MD Location:PM Office Appointment Type:PM OV Future Scheduled Tests Laboratory* Uric Acid 04/23/21 * Complete Blood Count 04/23/21 * Complete Metabolic Panel 04/23/21 [facility] Evaluation + Plan note Future Appointments Appointment Date:11/16/2022 09:30:00 AM Scheduled Provider:MANASA ZENDEJAS DO [facility] Appoint[facility] Type:PC OV Future Scheduled Tests Radiology* NM Myocardial Spect Rest/Stress 05/19/22 [facility] Evaluation + Plan note Future Appointments Appointment Date:10/21/2022 08:00:00 AM Scheduled Provider: Location:Heart Lab Appointment Type:EP Ablation RF-CARTO Appointment Date:11/16/2022 09:30:00 AM Scheduled Provider:MANASA ZENDEJAS DO Location:[facility] Appointment Type:PC OV Appointment Date:11/25/2022 12:00:00 PM Scheduled Provider:RICKEY HUNG MD Location:PM Office Appointment Type:PM OV Appointment Date:12/21/2022 11:45:00 AM Scheduled Provider: Location:[facility] Appointment Type:CV OV [facility] Pain Management Evaluation + Plan note Future Appointments Appointment Date:11/10/2022 09:00:00 AM Scheduled Provider: Location:Heart Lab Appointment Type:EP Ablation RF-CARTO Appointment Date:11/16/2022 09:30:00 AM Scheduled Provider:MANASA ZENDEJAS DO Location:[facility] Appointment Type:PC OV Appointment Date:11/25/2022 12:00:00 PM Scheduled Provider:RICKEY HUNG MD Location:PM Office Appointment Type:PM OV Appointment Date:12/21/2022 11:45:00 AM Scheduled Provider: Location:[facility] Appointment Type:CV OV Appointment Date:01/13/2023 11:15:00 AM Scheduled Provider: Location:[facility] Appointment Type:CV OV [facility] Evaluation + Plan note Future Appointments Appointment Date:02/24/2023 10:30:00 AM Scheduled Provider: Location:[facility] Appointment Type:CT Chest w/ Contrast Appointment Date:03/15/2023 08:30:00 AM Scheduled Provider: Location:[facility] Appointment Type:PM Inj Spine L/S With Imaging Appointment Date:08/11/2023 10:00:00 AM Scheduled Provider:MANASA ZENDEJAS DO Location:[facility] Appointment Type:PC OV Appointment Date:01/15/2024 10:30:00 AM Scheduled Provider: Location:[facility] Appointment Type:CV OV Future Scheduled Tests Laboratory* Prostate Specific Antigen 02/08/23 * Uric Acid 02/08/23 * A1C Hemoglobin 02/08/23 * Complete Blood Count 02/08/23 * Lipid Profile 02/08/23 * Hepatitis C Antibody IgG 02/08/23 * Albumin/Creatinine Ratio, Random Urine 02/08/23 * Complete Metabolic Panel 02/08/23 Radiology* CT Thorax w/ Contrast 02/24/23 [facility] Pain Management Evaluation + Plan note Future Appointments Appointment Date:03/15/2023 08:30:00 AM Scheduled Provider: Location:[facility] [place] Appointment Type:PM Inj Spine L/S With Imaging Appointment Date:08/11/2023 10:00:00 AM Scheduled Provider:MANASA ZENDEJAS DO Location:[facility] Appointment Type:PC OV Appointment Date:01/15/2024 10:30:00 AM Scheduled Provider: Location:[facility] Appointment Type:CV OV Future Scheduled Tests Laboratory* Prostate Specific Antigen 8 * Uric Acid 02/08/23 * A1C Hemoglobin 02/08/23 * Complete Blood Count 02/08/23 * Lipid Profile 02/08/23 * Hepatitis C Antibody IgG 02/08/23 * Albumin/Creatinine Ratio, Random Urine 02/08/23 * Complete Metabolic Panel 02/08/23 [facility] Evaluation + Plan note Future Appointments Appointment Date:06/13/2023 09:00:00 AM Scheduled Provider:GOKUL JANG Location:PM Office Appointment Type:PM OV [facility] Appointment Date:08/11/2023 10:00:00 AM Scheduled Provider:MANASA ZENDEJAS DO Location:[facility] Appointment Type:PC OV Appointment Date:01/15/2024 10:30:00 AM Scheduled Provider: Location:[facility] Appointment Type:CV OV Future Scheduled Tests Laboratory* Prostate Specific Antigen 02/08/23 * Uric Acid 02/08/23 * A1C Hemoglobin 02/08/23 * Complete Blood Count 02/08/23 * Lipid Profile 02/08/23 * Hepatitis C Antibody IgG 02/08/23 * Albumin/Creatinine Ratio, Random Urine 02/08/23 * Complete Metabolic Panel 02/08/23 Radiology* CT Thorax w/o Contrast 07/26/23 [facility] Pain Management Evaluation + Plan note Future Appointments Appointment Date:07/27/2023 09:30:00 AM Scheduled Provider: Location:[facility] Appointment Type:PM Inj Spine L/S With Imaging Appointment Date:08/11/2023 10:00:00 AM Scheduled Provider:MANASA ZENDEJAS DO Location:[facility] Appointment Type:PC OV Appointment Date:01/15/2024 10:30:00 AM Scheduled Provider: Location:[facility] Appointment Type:CV OV Future Scheduled Tests Laboratory* Prostate Specific Antigen 82 * Uric Acid 82 * A1C Hemoglobin 2 * Complete Blood Count 02/08/23 * Lipid Profile 02/08/23 * Hepatitis C Antibody IgG 02/08/23 * Albumin/Creatinine Ratio, Random Urine 02/08/23 * Complete Metabolic Panel 02/08/23 Radiology* CT Thorax w/o Contrast 07/26/23 [facility] Pain Management Evaluation + Plan note Future Appointments Appointment Date:08/11/2023 10:00:00 AM Scheduled Provider:MANASA ZENDEJAS DO Location:[facility] Appointment Type:PC OV Appointment Date:09/25/2023 07:20:00 AM Scheduled Provider:RICKEY HUNG MD Location:PM Office Appointment Type:PM OV Appointment Date:01/15/2024 10:30:00 AM Scheduled Provider: Location:[facility] Appointment Type:CV OV Future Scheduled Tests Laboratory* Prostate Specific Antigen 02/08/23 * Uric Acid 02/08/23 * A1C Hemoglobin 02/08/23 * Complete Blood Count 02/08/23 * Lipid Profile 02/08/23 * Hepatitis C Antibody IgG 02/08/23 * Albumin/Creatinine Ratio, Random Urine 02/08/23 * Complete Metabolic Panel 02/08/23 Radiology* CT Thorax w/o Contrast 07/26/23 [facility] Pain Management Evaluation + Plan note Future Appointments Appointment Date:09/25/2023 07:20:00 AM Scheduled Provider:RICKEY HUNG MD Location:PM Office Appointment Type:PM OV Appointment Date:01/15/2024 10:30:00 AM Scheduled Provider: Location:[facility] Appointment Type:CV OV Appointment Date:02/09/2024 08:00:00 AM Scheduled Provider:MANASA ZENDEJAS DO Location:[facility] Appointment Type:PC Wellness Medicare Future Scheduled Tests Laboratory* Prostate Specific Antigen 82 * Uric Acid 82 * A1C Hemoglobin 2 * Complete Blood Count 02/08/23 * Lipid Profile 8/2/23 * Hepatitis C Antibody IgG 02/08/23 * Albumin/Creatinine Ratio, Random Urine 02/08/23 * Complete Metabolic Panel 02/08/23 [facility] Evaluation + Plan note Future Appointments Appointment Date:12/26/2023 11:30:00 AM Scheduled Provider:RICKEY HUNG MD Location:PM Office Appointment Type:PM OV Appointment Date:01/15/2024 10:30:00 AM Scheduled Provider: Location:[facility] Appointment Type:CV OV Appointment Date:02/09/2024 09:00:00 AM Scheduled Provider:MANASA ZENDEJAS DO Location:[facility] Appointment Type:PC Wellness Medicare Future Scheduled Tests Laboratory* Prostate Specific Antigen 02/08/23 * Uric Acid 02/08/23 * A1C Hemoglobin 02/08/23 * Complete Blood Count 02/08/23 * Lipid Profile 02/08/23 * Hepatitis C Antibody IgG 02/08/23 * Albumin/Creatinine Ratio, Random Urine 02/08/23 * Complete Metabolic Panel 02/08/23 Radiology* CT Angiography Chest w/ Contrast 08/16/24 [facility] Pain Management Evaluation + Plan note Future Appointments Appointment Date:02/09/2024 09:00:00 AM Scheduled Provider:MANASA ZENDEJAS DO Location:[facility] Appointment Type:PC Wellness Medicare Appointment Date:04/29/2024 11:30:00 AM Scheduled Provider:RICKEY HUNG MD Location:PM Office Appointment Type:PM OV Appointment Date:01/13/2025 10:15:00 AM Scheduled Provider: Location:[facility] Appointment Type:CV OV Future Scheduled Tests Laboratory* Prostate Specific Antigen 02/08/23 * Uric Acid 02/08/23 * A1C Hemoglobin 02/08/23 * Complete Blood Count 02/08/23 * Lipid Profile 02/08/23 * Hepatitis C Antibody IgG 02/08/23 * Albumin/Creatinine Ratio, Random Urine 02/08/23 * Complete Metabolic Panel 02/08/23 Radiology* CT Angiography Chest w/ Contrast 08/16/24 [facility] Pain Management Evaluation + Plan note Future Appointments Appointment Date:08/14/2024 10:00:00 AM Scheduled Provider:MANASA ZENDEJAS DO Location:[facility] Appointment Type:PC OV Appointment Date:01/13/2025 10:15:00 AM Scheduled Provider:MIRI OLIVAREZ Location:[facility] Appointment Type:CV OV Future Scheduled Tests Laboratory* Prostate Specific Antigen 02/09/24 * Uric Acid 02/09/24 * A1C Hemoglobin 02/09/24 * Complete Blood Count 02/09/24 * Lipid Profile 02/09/24 * Hepatitis C Antibody IgG 02/09/24 * Albumin/Creatinine Ratio, Random Urine 02/09/24 * Complete Metabolic Panel 02/09/24 Radiology* CT Angiography Chest w/ Contrast 08/16/24 [facility] Pain Management Evaluation + Plan note Future Appointments Appointment Date:08/14/2024 10:00:00 AM Scheduled Provider:MANASA ZENDEJAS DO Location:[facility] Appointment Type:PC OV Appointment Date:09/11/2024 08:15:00 AM Scheduled Provider:ADOLFO SANCHES Location:PM Office Appointment Type:PM OV [facility] Appointment Date:01/13/2025 10:15:00 AM Scheduled Provider:MIRI OLIVAREZ Location:[facility] Appointment Type:CV OV Future Scheduled Tests Laboratory* Prostate Specific Antigen 02/09/24 * Uric Acid 02/09/24 * A1C Hemoglobin 02/09/24 * Complete Blood Count 02/09/24 * Lipid Profile 02/09/24 * Hepatitis C Antibody IgG 02/09/24 * Albumin/Creatinine Ratio, Random Urine 02/09/24 * Complete Metabolic Panel 02/09/24 Radiology* CT Angiography Chest w/ Contrast 08/16/24 [facility] Pain Management Evaluation + Plan note Future Appointments Appointment Date:09/11/2024 08:15:00 AM Scheduled Provider:ADOLFO SANCHES Location:PM Office Appointment Type:PM OV WJW Appointment Date:01/13/2025 10:15:00 AM Scheduled Provider:MIRI OLIVAREZ Location:[facility] Appointment Type:CV OV Appointment Date:02/12/2025 08:30:00 AM Scheduled Provider:MANASA ZENDEJAS DO Location:[facility] Appointment Type:PC Wellness Medicare Future Scheduled Tests Laboratory* Albumin/Creatinine Ratio, Random Urine 08/14/24 Radiology* CT Angiography Chest w/ Contrast 08/16/24 [facility] Evaluation + Plan note Future Appointments Appointment Date:11/07/2024 10:30:00 AM Scheduled Provider:JESUS LAZAR Location:PM Office Appointment Type:PM OV WJW Appointment Date:01/13/2025 10:15:00 AM Scheduled Provider:MIRI OLIVAREZ Location:[facility] Appointment Type:CV OV Appointment Date:02/12/2025 08:30:00 AM Scheduled Provider:MANASA ZENDEJAS DO Location:[facility] Appointment Type:PC Wellness Medicare Future Scheduled Tests Laboratory* Albumin/Creatinine Ratio, Random Urine 08/14/24 Radiology* CT Angiography Chest w/ Contrast 08/16/24 [facility] Pain Management Evaluation + Plan note Future Appointments Appointment Date:11/20/2024 10:30:00 AM Scheduled Provider:MANASA ZENDEJAS DO Location:[facility] Appointment Type:PC OV Appointment Date:01/13/2025 10:15:00 AM Scheduled Provider:MIRI OLIVAREZ Location:[facility] Appointment Type:CV OV Appointment Date:02/12/2025 08:30:00 AM Scheduled Provider:MANASA ZENDEJAS DO Location:[facility] Appointment Type:PC Wellness Medicare Future Scheduled Tests Laboratory* Albumin/Creatinine Ratio, Random Urine 08/14/24 [facility] Evaluation + Plan note Future Appointments Appointment Date:01/13/2025 10:15:00 AM Scheduled Provider:MIRI OLIVAREZ Location:[facility] Appointment Type:CV OV Appointment Date:02/12/2025 08:30:00 AM Scheduled Provider:MANASA ZENDEJAS DO Location:[facility] Appointment Type:[facility] Medicare Appointment Date:03/17/2025 11:50:00 AM Scheduled Provider:RICKEY HUNG MD Location:PM Office Appointment Type:PM OV Future Scheduled Tests Laboratory* Albumin/Creatinine Ratio, Random Urine 08/14/24 [facility] Evaluation note* Diagnosis Onset Date Resolution Status MARIELENA (obstructive sleep apnea) acute Obesity chronic MARIELENA (obstructive sleep apnea) acute Obesity chronic [facility] Work Phone: Evaluation note* Diagnosis Onset Date Resolution Status MARIELENA (obstructive sleep apnea) acute Obesity chronic Dyspnea acute Atherosclerotic heart diseas e of [place] coronary artery without angina pectoris chronic HLD (hyperlipidemia) chronic Hypertension chronic PVCs (premature ventricular contractions) chronic [facility] Work Phone: Evaluation note* Diagnosis Onset Date Resolution Status Atrial fibrillation acute Atherosclerotic heart diseas e of [place] coronary artery without angina pectoris chronic Essential hypertension chron ic Fatigue chronic HLD (hyperlipidemia) chronic PVCs (premature ventricular contractions) chronic Sinus bradycardia chronic Atrial fibrillation acute Atherosclerotic heart diseas e of [place] coronary artery without angina pectoris chronic Essential hypertension chron ic Fatigue chronic HLD (hyperlipidemia) chronic PVCs (premature ventricular contractions) chronic Sinus bradycardia chronic [facility] Work Phone: Evaluation note* Diagnosis Onset Date Resolution Status Atherosclerotic heart diseas e of [place] coronary artery without angina pectoris chronic Essential hypertension chron ic Fatigue chronic HLD (hyperlipidemia) chronic PVCs (premature ventricular contractions) chronic Sinus bradycardia chronic Atrial fibrillation resolved [facility] Work Phone: Hospital course Narrative No data available for this section [facility] Pain Management Hospital Discharge instructions No data available for this section [facility] Pain Management Hospital Discharge instructions Additional Instructions Please return to the ER if he have any further concerns or worsening of symptoms [facility] Work Phone: Note* Holger Madison RN: SIGN, VERIFY Event Display: Ablation RF-CARTO - CV [facility] Note* Darinel Bradley E: PERFORM Event Display: Consent to Procedure Scanned Authored Date: [id number] [facility] Pain Management progress note No data available for this section [facility] Pain Management reason for referral (narrative)No reason for referral information [facility] Work [facility]: Chief Complaint and Reason [...] apnea) Obesity Dyspnea Atherosclerotic heart disease of [place] coronary artery without angina pectoris HLD (hyperlipidemia) Hypertension PVCs (premature ventricular contractions) Chief Complaint 30 DAY MONITOR Amb Documentation 1 Y FU EKG per PFM 6 wk FU E ORDERS back and abd pain Reason for Visit Atrial fibrillation Atherosclerotic heart disease of [place] coronary artery without angina pectoris Essential hypertension Fatigue HLD (hyperlipidemia) PVCs (premature ventricular contractions) Sinus bradycardia Atrial fibrillation Atherosclerotic heart disease of [place] coronary artery without angina pectoris Essential hypertension Fatigue HLD (hyperlipidemia) PVCs (premature ventricular contractions) Sinus bradycardia Chief Complaint 4-6 MO F/U Amb Documentation Reason for Visit Atherosclerotic hear t disease of [place] coronary artery without angina pectoris Essential hypertension [...] CT October 07, 2024 8:0 2am LUNG Sherrell 8th, 2025 10:0 7am 2 wk fu October 25, 2024 7:3 4am R06.00 - Dyspnea, unspecified October 6:21am Reason for Visit Admit Date Lung nodule, solitary October 07, 2024 8 :02am Morbid obesity October 07, 2024 8:0 2am Dyspnea October 25, 2024 7:3 4am Lung nodule, solitary October 25, 2024 7 :34am Morbid obesity October 25, 2024 7:3 4am MARIELENA (obstructive sleep apnea) October 7:34am Chief Complaint Admit Date Discuss CT October 07, 2024 8:0 2am LUNG October 15, 2024 10:0 7am 2 wk fu October 25, 2024 7:3 4am R06.00 - Dyspnea, unspecified October 6:21am R06.00 - Dyspnea, unspecified December 19, 2024 7:48am R06.00 - Dyspnea, unspecified December 23, 2024 10:20am Chief Complaint Admit Date Discuss CT October 07, 2024 8:0 2am LUNG October 15, 2024 10:0 7am 2 wk fu October 25, 2024 7:3 4am R06.00 - Dyspnea, unspecified October 6:21am R06.00 - Dyspnea, unspecified December 19, 2024 7:48am R06.00 - Dyspnea, unspecified December 23, 2024 10:20am 1 Y FU December 26, 2024 1:20 pm Reason for Visit Admit Date Lung nodule, solitary October 07, 2024 8 :02am Morbid obesity October 07, 2024 8:0 2am Dyspnea October 25, 2024 7:3 4am Lung nodule, solitary October 25, 2024 7 :34am Morbid obesity October 25, 2024 7:3 4am MARIELENA (obstructive sleep apnea) October 7:34am Coronary artery disease December 26, 2024 1:20pm Essential hypertension December 26, 2024 1 :20pm History of atrial fibrillation December 1:20pm HLD (hyperlipidemia) December 26, 2024 1:2 0pm Lower extremity edema December 26, 2024 1: 20pm Morbid obesity December 26, 2024 1:20 pm MARIELENA (obstructive sleep apnea) December 26, 2024 1:20pm Chief Complaint Admit Date Discuss CT October 07, 2024 8:0 2am LUNG October 15, 2024 10:0 7am 2 wk fu October 25, 2024 7:3 4am R06.00 - Dyspnea, unspecified October 6:21am R06.00 - Dyspnea, unspecified December 19, 2024 7:48am R06.00 - Dyspnea, unspecified December 23, 2024 10:20am 1 Y FU December 26, 2024 1:20 pm 6 M FU January 02, 2025 12:5 2pm Family History No Family History Records Found Relationship Condition Age at Onset Recorded Date/T angel luis mother Coronary artery disease Unknown Congestive heart failure Unknown father Heart valve disease Unknown Advance Directives No Advanced Directives Records Found Advance Directive Response Recorded Date/ Time Advance Directives No August 3:00pm Living Will No May 16 10:21pm Power of Director Of Guidance In Public [employer] No May 16, 2022 10:21pm Advance Directive Response Recorded Date/ Time Advance Directives No August 4:00pm Living Will No October 16, 2022 6:39am Power of Director Of Guidance In [employer] No October 16 6:39am Advance Directive Response Recorded Date/ Time Living Will No October 16, 2022 6:39am Do you have a Healthcare Power of Director Of Guidance In [employer]? No October 16, 2022 6:39am Living Will No July 02, 11:14am Do you have a Healthcare Power of Director Of Guidance In Public [employer]? No July 02, 2024 11:14am Advance Directives No August 4:00pm Advance Directive Response Recorded Date/ Time Living Will No July 02, 024 11:14am Do you have a Healthcare Power of Director Of Guidance In Public [employer]? No July 02, 2024 11:14am Advance Directives No August 4:00pm Advance Directive Response Recorded Date/ Time Advance Directives No August 4:00pm Summary Purpose Additional Source Comments Care Team (unrecognized sect ion and content) Team Status: Active Member Role Status Dates Dr. Manasa Zendejas DO Family Provider Active Dr. Manasa Zendejas , DO Primary Care Provider Active Team Status: Inactive Member Role Status Dates Dr. Manasa Zendejas , DO Primary Care Provider, Referrin g Provider Active Dr. Mark Grajeda MD Attending Provider Active Team Status: Active Member Role Status Dates Dr. Manasa Zendejas DO Primary Care Provider Active Melissa Mcintosh Attending Provider Active Team Status: Inactive Member Role Status Dates Dr. Manasa Zendejas DO Primary Care Provider, Referrin g Provider Active Anna Jones NEONATAL PEDIATRIC NURSE, NEONATAL PEDIATRIC NURSE-C Attending Provider Active Team Status: Active Member Role Status Dates Dr. Manaas Zendejas DO Primary Care Provider Active Dr. Mark Grajeda MD Attending Provider Active Melissa Up PA, PA Referring Provider Active Team Status: Inactive Member Role Status Dates Dr. Manasa Zendejas DO Primary Care Provider Active Anna Jones NEONATAL PEDIATRIC NURSE, NEONATAL PEDIATRIC NURSE-C Attending Provider, Referring Pro vider Active Team Status: Inactive Member Role Status Dates Dr. Manasa Zendejas DO Primary Care Provider Active Dr. Aditya Singh MD Emergency Provider Active Team Status: Active Member Role Status Dates Dr. Manasa Zendejas DO Primary Care Provider Active Anna Jones NEONATAL PEDIATRIC NURSE, NEONATAL PEDIATRIC NURSE-C Attending Provider Active Team Status: Inactive Member Role Status Dates Dr. Manasa Zendejas DO Primary Care Provider Active Rocio Jara Attending Provider, Referring Provide r Active Team Status: Inactive Member Role Status Dates Dr. Manasa Zendejas DO Primary Care Provider Active Start: June 21, 2024 End: June 21, 2024 Dr. Manasa Zendejas DO Referring Provider Active Start: June 21, 2024 End: June 21, 2024 Cathy Ruiz NP, NEONATAL PEDIATRIC NURSE-C Attending Provider Active Start: June 21, 2024 [...] 2024 End: October 07, 2024 Cathy Ruiz NP, NEONATAL PEDIATRIC NURSE-C Attending Provider Active Start: October 07, 2024 End: October 07, 2024 Team Status: Inactive Member Role Status Dates Dr. Manasa Zendejas DO Primary Care Provider Active Start: October 07, 2024 End: October 07, 2024 Cathy Ruiz NEONATAL PEDIATRIC NURSE, NEONATAL PEDIATRIC NURSE-C Attending Provider Active Start: October 07, 2024 End: October 07, 2024 Cathy Ruiz NEONATAL PEDIATRIC NURSE, NEONATAL PEDIATRIC NURSE-C Referring Provider Active Start: October 07, 2024 End: October 07, 2024 Team Status: Active Member Role Status Dates Dr. Manasa Zendejsa DO Primary Care Provider Active Team Status: Inactive Member Role Status Dates Dr. Manasa Zendejas DO Primary Care Provider Active Start: October 15, 2024 End: October 15, 2024 Cathy Ruiz NEONATAL PEDIATRIC NURSE, NEONATAL PEDIATRIC NURSE-C Attending Provider Active Start: October 15, 2024 End: October 15, 2024 Cathy Ruiz NEONATAL PEDIATRIC NURSE, NEONATAL PEDIATRIC NURSE-C Referring Provider Active Start: October 15, 2024 End: October 15, 2024 Team Status: Inactive Member Role Status Dates Dr. Manasa Zendejas DO Primary Care Provider Active Start: October 25, 2024 End: October 25, 2024 Dr. Manasa Zendejas DO Referring Provider Active Start: October 25, 2024 End: October 25, 2024 Cathy Ruiz NEONATAL PEDIATRIC NURSE, NEONATAL PEDIATRIC NURSE-C Attending Provider Active Start: October 25, 2024 End: October 25, 2024 Team Status: Inactive Member Role Status Dates Dr. Manasa Zendejas DO Primary Care Provider Active Start: October 30, 2024 End: October 30, 2024 Cathy Ruiz NEONATAL PEDIATRIC NURSE, NEONATAL PEDIATRIC NURSE-C Attending Provider Active Start: October 30, 2024 End: October 30, 2024 Cathy Ruiz NEONATAL PEDIATRIC NURSE, NEONATAL PEDIATRIC NURSE-C Referring Provider Active Start: October 30, 2024 End: October 30, 2024 Team Status: Inactive Member Role Status Dates Dr. Manasa Zendejas DO Primary Care Provider Active Start: December 19, 2024 End: December 19, 2024 Cathy Ruiz NEONATAL PEDIATRIC NURSE, NEONATAL PEDIATRIC NURSE-C Attending Provider Active Start: December 19, 2024 End: December 19, 2024 Cathy Ruiz NEONATAL PEDIATRIC NURSE, NEONATAL PEDIATRIC NURSE-C Referring Provider Active Start: December 19, 2024 End: December 19, 2024 Team Status: Active Member Role Status Dates Dr. Manasa Zendejas DO Primary Care Provider Active Start: December 23, 2024 Cathy Ruiz NEONATAL PEDIATRIC NURSE, NEONATAL PEDIATRIC NURSE-C Referring Provider Active Start: December 23, 2024 Cathy Ruiz NEONATAL PEDIATRIC NURSE, NEONATAL PEDIATRIC NURSE-C Other Provider Active Start: December 23, 2024 Dr. Cale Rno DO Attending Provider Active S tart: December 23, 2024 Team Status: Inactive Member Role Status Dates Dr. Manasa Zendejas DO Primary Care Provider Active Start: December 26, 2024 End: December 26, 2024 Dr. Manasa Zendejas DO Referring Provider Active Start: December 26, 2024 End: December 26, 2024 Dr. Donn Hawk MD Attending Provider Active Start: December 26, 2024 End: December 26, 2024 Team Status: Inactive Member Role Status Dates Dr. Manasa Zendejas DO Primary Care Provider Active Start: January 02, 2025 End: January 02, 2025 Dr. Maansa Zendejas DO Referring Provider Active Start: January 02, 2025 End: January 02, 2025 Cathy Ruiz NEONATAL PEDIATRIC NURSE, NEONATAL PEDIATRIC NURSE-C Attending Provider Active Start: January 02, 2025 End: January 02, 2025 Care Team (unrecognized sect ion and content) Personnel Name: MANASA ZENDEJAS DO Address: Address: [address] [place] [address]- Care Team Personnel Name: MANASA ZENDEJAS DO Position: P4 Physician - Primary Care Med Service: Active Provider Member Role: Primary Care Physician Address: Address: [address] [place] [address]- Care Team Related Persons Name: ANNA PADGETT Care Team Personnel Name: MANASA ZENDEJAS DO Position: P4 Physician - Primary Care Med Service: Active Provider Member Role: Primary Care Physician Address: Address: [address] [place] [address]- Care Team Related Persons Name: ANNA PADGETT Care Team Personnel Name: MANASA ZENDEJAS DO Position: P4 Physician - Primary Care Med Service: Active Provider Member Role: Primary Care Physician Address: Address: [address] [place] [address]- Care Team Related Persons Name: ANNA PADGETT Care Team Personnel Name: MANASA ZENDEJAS DO Position: P4 Physician - Primary Care Med Service: Active Provider Member Role: Primary Care Physician Address: Address: [address] [place] [address]- Care Team Related Persons Name: LORINANNA Care Team Personnel Name: MANASA ZENDEJAS Position: P4 Physician - Primary Care Member Role: Primary Care Physician Address: Address: [address] [place] [address]- Care Team Related Persons Name: LORIN ANNA Goals (unrecognized section and content) Goals may be documented in a n alternate section (unrecognized sect ion and content) No Status Records FoundNo Status Records FoundNo Status Records FoundNo Status Records Found INFORMATION SOURCE (unrecogn ized section and content) DATE CREATED AUTHOR 02/01/2024 [facility] ([place]) DATE CREATED AUTHOR AUTHOR'S ORGANIZ ATION 11/24/2024 [facility] DATE CREATED AUTHOR AUTHOR'S ORGANIZ ATION 12/20/2024 [facility] DATE CREATED AUTHOR AUTHOR'S ORGANIZ ATION 01/05/2025 [facility] FOR RECORDS PERTAINING TO PATIENTS WHO ARE [...] BE BASED ON THE PRIMARY CLINICAL RECORDS. [employer] provides no warranty or guarantee of the accuracy or completeness of information in this document.
[2025-01-06 08:26] LABS: Anion Gap 11 (5-15); BUN 21 mg/dL (4-19); BUN/Creat Ratio 22.4 RATIO (10-20); Carbon Dioxide 29.6 mmol/L (21.0-32.0); Chloride 102 mmol/L (98-108); Creatinine, Serum 0.95 mg/dL (0.70-1.20); EST Glomerular Filtration Rate 88 (>60); Glucose 90 mg/dL (70-99); Potassium 4.1 mmol/L (3.3-5.1); Sodium Level 142 mmol/L (133-145)
== END | disposition home or self-care (01) ==
LOC: LAB 06:05
PROVIDERS: PCP Student in an Organized Health Care Education/Training Program; Referring Provider Internal Medicine Cardiovascular Disease; Visit Provider Internal Medicine Cardiovascular Disease
DX: I25.10 Atherosclerotic heart disease of native coronary artery without angina pectoris (principal)
CPT/HCPCS: 36415; 80048

== ENCOUNTER → 2025-01-21 | Outpatient (CLI) | payer MEDICARE, SELFPAY ==
--- NOTE | 2025-01-21 06:49 | ECHOD_ITS ---
Reason For Study Reason For Study: DYSPNEA Procedure This was a 2D Doppler, Color Flow transthoracic echocardiogram. The study was technically difficult. Exam performed in department. Left Ventricle Normal size and thickness. Mild concentric left ventricular hypertrophy. Posterior hypokinesis. Estimated LVEF 45%. Stage 3 diastolic dysfunction. Right Ventricle Normal right ventricle. Atria The left atrium is mildly enlarged. Normal right atrium. Mitral Valve Mild (1+) mitral valve insufficiency. Tricuspid Valve Trivial tricuspid valve insufficiency. Unable to estimate RV systolic pressure due to insufficient tricuspid regurgitant envelope. Aortic Valve Trisinus/trileaflet aortic valve. Pulmonic Valve The pulmonic valve is not well visualized. Trivial pulmonic valve insufficiency. Great Vessels Normal sized aortic root. Pericardium/Pleural No pericardial effusion. MMode/2D Measurements & Calculations LVIDd: 5.5 cm IVSd: 1.3 cm Ao root diam: 3.7 cm LVIDs: 4.0 cm LVPWd: 1.3 cm RVDd: 3.2 cm FS: 27.3 % LAV(MOD-bp): 87.9 ml LVAd ap4: 33.4 cm2 LVAd ap2: 32.2 cm2 LAV(MOD-bp) Indexed: 37.5 ml/m2 LVLd ap4: 7.9 cm LVLd ap2: 7.4 cm LAV(MOD-sp2): 87.4 ml EDV(MOD-sp4): 123.5 ml EDV(MOD-sp2): 116.9 ml LAV(MOD-sp4): 87.4 ml EDV(sp4-el): 120.4 ml EDV(sp2-el): 118.4 ml LVAs ap4: 21.1 cm2 LVAs ap2: 20.0 cm2 LVLs ap4: 6.6 cm LVLs ap2: 6.4 cm ESV(MOD-sp4): 58.4 ml ESV(MOD-sp2): 51.6 ml ESV(sp4-el): 57.1 ml ESV(sp2-el): 53.1 ml EF(MOD-sp4): 52.7 % EF(MOD-sp2): 55.9 % EF(sp4-el): 52.6 % SV(MOD-sp4): 65.2 ml SV(MOD-sp2): 65.3 ml SV(sp4-el): 63.4 ml SI(MOD-sp4): 27.8 ml/m2 SI(MOD-sp2): 27.9 ml/m2 LA A4 area: 25.1 cm2 LA dimension(2D): 5.3 cm RA A4 area: 16.3 cm2 TAPSE: 2.2 cm Time Measurements MV dec time: 0.21 sec Doppler Measurements & Calculations MV E max feliciano: 92.2 cm/sec Lat Peak E' Feliciano: 10.1 cm/sec Med Peak E' Feliciano: 13.2 cm/sec MV A max feliciano: 37.9 cm/sec E/E' lat: 9.1 E/E' med: 7.0 MV E/A: 2.4 MV V2 max: 87.9 cm/sec MV P1/2t max feliciano: 83.6 cm/sec Ao V2 max: 112.9 cm/sec MV max P.1 mmHg MV P1/2t: 72.8 msec Ao max P.1 mmHg MV V2 mean: 42.9 cm/sec Ao V2 mean: 74.8 cm/sec MV mean P.88 mmHg MV dec slope: 336.1 cm/sec2 Ao mean P.5 mmHg MV V2 VTI: 24.3 cm MVA(P1/2t): 3.0 cm2 Ao V2 VTI: 22.5 cm AV (velocity ratio): 0.82 LV V1 max: 98.5 cm/sec PA V2 max: 91.4 cm/sec LV V1 max P.9 mmHg LV V1 mean P.6 mmHg LV V1 mean: 59.1 cm/sec LV V1 VTI: 18.4 cm ECHO/Echo Complete Interpretation Summary The study was technically difficult. Mild concentric left ventricular hypertrophy. Posterior hypokinesis. Estimated LVEF 45%. Stage 3 diastolic dysfunction. The left atrium is mildly enlarged. Mild (1+) mitral valve insufficiency. Ordering Physician: Donn Hawk Referring Physician: Aly Cornejo Performed By: Carina Lemos, FREDO, RVT
--- OUTSIDE RECORDS SUMMARY | 2025-01-21 07:00 | XMS RPT_ITS | CCD ---
Author Organization [facility] Care Team Providers Care Tax Compliance Representative Name Role Phone MANASA ZENDEJAS DO Primary Care Physician [phone] Dr. Manasa Zendejas Primary Care Provider [phone] Dr. Manasa Zendejsa Referring Provider [phone] Dr. Cale Ron Attending Provider [phone] Sara HARDING, ORACLE FINANCIAL APPLICATION DEVELOPER-C Cathy Attending Provider [phone] Dr. Manasa Zendejas Primary Care Provider [phone] Dr. Manasa Zendejas Referring Provider [phone] Luis HARDING, MIKAYLA Jones Attending Provider Dr. Manasa Zendejas Other Provider Unavailable Dr. Byron Lora Attending Provider [phone] Dr. Mark Grajeda Attending Provider [phone] Dr. Manasa Zendejas Primary Care Provider [phone] Dr. Mark Grajeda Attending Provider [phone] Jeovanny DORAN, [place] Melissa Blue Referring Provider Melissa Mcintosh Attending Provider Unavailable Dr. Manasa Zendejas Referring Provider [phone] Robert HARDING, ORACLE FINANCIAL APPLICATION DEVELOPER-C Anna Varma Attending Provider [phone] Dr. Manasa Zendejas Primary Care Provider [phone] Dr. Manasa Zendejas Referring Provider [phone] Robert ORACLE FINANCIAL APPLICATION DEVELOPER, ORACLE FINANCIAL APPLICATION DEVELOPER-C Anna Varma Attending Provider [phone] GOKUL VALENZUELA Attending Unavailab le CRISTIANA DUBOSI, MANASA Primary Care Unavailable KRYSTYNA MANZANO Attending Unavailable CRISTIANA DUBOIS, MANASA Primary Care Unavailable MANASA ZENDEJAS DO Attending Unavailable CRISTIANA DUBOIS, MANASA Primary Care Unavailable MANASA ZENDEJAS DO Attending Unavailable HALKO DO, MANASA Primary Care Unavailable HALKO DO, MANASA Attending Unavailable HALKO DO, MANASA Primary Care Unavailable ABHILASH VEGA, RICKEY Morales Attending Unavail able HALKO DO, MANASA Primary Care Unavailable SOLO STOCK SHAPER-CASHIER AND WAITER/WAITRESS, MARCOS Cohn Attending Unavai lable HALKO DO, MANASA Primary Care Unavailable HALKO DO, MANASA Primary Care Unavailable SUHAIL STOCK SHAPER-MANAGER CAR, GOKUL Attending Unavailab silvia HUNG MD, RICKEY Morales Attending Unavail able HALKO DO, MANASA Primary Care Unavailable RICKEY HUNG MD Attending Unavail able HALKO DO, MANASA Primary Care Unavailable SOLO STOCK SHAPER-CASHIER AND WAITER/WAITRESS, MARCOS Cohn Attending Unavai lable HALKO DO, MANASA Primary Care Unavailable Halalonzo DUBOIS, Dr. Lu Primary Care Provider Dr. Manasa Zendejas DO Referring Provider [phone] Sara ORACLE FINANCIAL APPLICATION DEVELOPER-C, Cathy Attending Provider Dr. Behzad Rivera DO Attending Provider [phone] Behzad Rivera DO Emergency Provider Sara ORACLE FINANCIAL APPLICATION DEVELOPER-C, Cathy Referring Provider Dr. Manasa Zendejas DO Primary Care Provider Dr. Manasa Zendejas DO Referring Provider Sara ORACLE FINANCIAL APPLICATION DEVELOPER-C, Cathy Attending Provider Cristiana DUBOIS, Dr. Lu Primary Care Provider [phone] CRISTIANA DO, MANASA Attending Unavailable HALKO DO, MANASA Primary Care Unavailable HALKO DO, MANASA Attending Unavailable HALKO DO, MANASA Primary Care Unavailable HALKO DO, MANASA Primary Care Unavailable HALKO DO, MANASA Attending Unavailable Sara ORACLE FINANCIAL APPLICATION DEVELOPER-C, Cathy Other Provider [phone] Dr. Cale Ron DO Attending Provider Kenn VEGA, Dr. Pop Attending Provider Dr. Donn Hawk MD Referring Provider Sara ORACLE FINANCIAL APPLICATION DEVELOPER, Cathy Referring Unavailable Halko, Manasa Primary Care Unavailable Cale Ron Attending Unavailable Ruiz ORACLE FINANCIAL APPLICATION DEVELOPER, Cathy Referring Unavailable Ruiz ORACLE FINANCIAL APPLICATION DEVELOPER, Cathy Attending Unavailable Halko, Manasa Primary Care Unavailable Ruiz ORACLE FINANCIAL APPLICATION DEVELOPER, Cathy Attending Unavailable Halko, Manasa Referring Unavailable Halko, Manasa Primary Care Unavailable Ruiz ORACLE FINANCIAL APPLICATION DEVELOPER, Cathy Attending Unavailable Halko, Manasa Referring Unavailable Halko, Manasa Primary Care Unavailable Ruiz ORACLE FINANCIAL APPLICATION DEVELOPER, Cathy Attending Unavailable Halko, Manasa Referring Unavailable Halko, Manasa Primary Care Unavailable Ruiz ORACLE FINANCIAL APPLICATION DEVELOPER, Cathy Attending Unavailable Halko, Manasa Referring Unavailable Halko, Manasa Primary Care Unavailable Halko, Manasa Primary Care Unavailable Halko, Manasa Referring Unavailable Kenn, Donn Attending Unavailable Ruiz ORACLE FINANCIAL APPLICATION DEVELOPER, Cathy Attending Unavailable Halko, Manasa Referring Unavailable Halko, Manasa Primary Care Unavailable Halko, Manasa Primary Care Unavailable Kenn, Donn Attending Unavailable Smith ORACLE FINANCIAL APPLICATION DEVELOPER, Karen Attending Unavailable Halko, Manasa Primary Care Unavailable Ruiz ORACLE FINANCIAL APPLICATION DEVELOPER, Cathy Referring Unavailable Ruiz ORACLE FINANCIAL APPLICATION DEVELOPER, Cathy Consulting Unavailable Halko, Manasa Primary Care Unavailable Cale Ron Attending Unavailable Ruiz ORACLE FINANCIAL APPLICATION DEVELOPER, Cathy Referring Unavailable Ruiz ORACLE FINANCIAL APPLICATION DEVELOPER, Cathy Attending Unavailable Halko, Manasa Primary Care Unavailable Ruiz ORACLE FINANCIAL APPLICATION DEVELOPER, Cathy Attending Unavailable Ruiz ORACLE FINANCIAL APPLICATION DEVELOPER, Cathy Referring Unavailable Halko, Manasa Primary Care Unavailable Ruiz ORACLE FINANCIAL APPLICATION DEVELOPER, Cathy Attending Unavailable Ruiz ORACLE FINANCIAL APPLICATION DEVELOPER, Cathy Referring Unavailable Ruiz ORACLE FINANCIAL APPLICATION DEVELOPER, Cathy Attending Unavailable Halko, Manasa Primary Care Unavailable Halko, Manasa Primary Care Unavailable Behzad Rivera Attending Unavailable Kenn, Donn Referring Unavailable Halko, Manasa Primary Care Unavailable Kenn, Donn Attending Unavailable Kenn, Donn Referring Unavailable Halko, Manasa Primary Care Unavailable Kenn, Donn Attending Unavailable NAGI STOCK SHAPER-MANAGER CAR, JESUS Attending Unavailab le HALKO DO, MANASA Primary Care Unavailable NAGI STOCK SHAPER-MANAGER CAR, JESUS Attending Unavailab le HALKO DO, MANASA Primary Care Unavailable NAGI STOCK SHAPER-MANAGER CAR, JESUS Attending Unavailab le HALKO DO, MANASA Primary Care Unavailable HALKO DO, MANASA Primary Care Unavailable RICKEY HUNG MD Attending Unavail able RICKEY HUNG MD Attending Unavail able HALKO DO, MANASA Primary Care Unavailable HALKO DO, MANASA Primary Care Unavailable RICKEY HUNG MD Attending Unavail able Allergies Allergy Classification Reported Allergen(s) Allergy Type Date of Onset Reaction(s) Facility (20 sources) Betaxolol; Translations: [betaxolol] Drug Allergy Low heart rate [facility] (20 sources) cloNIDine; Translations: [clonidine] Drug Allergy 2 Unknown (qualifier value) [facility] Comment on above: heart rate low (20 sources) Lisinopril; Translations: [lisinopril] Drug Allergy 2 Angioedema (disorder) [facility] (20 sources) rosuvastatin; Translations: [rosuvastatin] Drug Allergy 2 severe myalgias, Myalgia [facility] (13 sources) Adrenergic Beta-Antagonists Allergy to substance 2 HEART RATE DROPS VERY LOW [facility] (13 sources) Angiotensin Converting Enzyme (Vickie) Inhibitors Allergy to substance 2 Angioedema [facility] (13 sources) Simvastatin Drug Allergy 2 myalgia [facility] (1 source) Adrenergic Beta-Antagonists Drug allergy (disorder) 5 [facility] (1 source) Angiotensin Converting Enzyme (Vickie) Inhibitors Drug allergy (disorder) 5 [facility] (1 source) cloNIDine Drug Allergy 5 [facility] (1 source) Lisinopril Drug Allergy 5 [facility] (1 source) rosuvastatin Drug Allergy 5 [facility] (1 source) Simvastatin Drug Allergy 5 [facility] Medications Current Medications Medication Drug [...] 08/21/23 10:40:00 AM EST, [facility]acy: [id number], 167, cm, 02/02/24 10:08:00 EST, Height, 122.2, kg, 08/11/23 10:08:00 EST, Dosing Weight Start Date: 08/11/23 Stop Date: 08/21/23 Status: Ordered apixaban 5 mg oral tablet (20 sources) Factor Xa Inhibitor Start: 06-22-2022 take 1 tablet by mouth twice daily Apixaban (Eliquis) 5 mg tablet Active 5 mg PO TWICE A DAY 180 June 22, 2022 1:00am diazePAM 5 mg oral tablet (2 sources) Benzodiazepine Start: 01-02-2025 Diazepam 5 mg tablet Active 5 mg PO as needed for anxiety January 02, 2025 12:00am ezetimibe 10 mg oral tablet (20 sources) Dietary Cholesterol Absorption Inhibitor Start: 01-06-2021 End: 02-10-2025 take 1 tablet by mouth once daily Ezetimibe (Zetia) 10 mg tablet Active 10 mg PO DAILY 90 September 29, 2021 11:17am furosemide 40 mg oral tablet (3 sources) Loop Diuretic Start: 12-26-2024 take 1 tablet by mouth once daily Furosemide (Lasix) 40 mg tablet Active 40 mg PO daily 30 December 26, 2024 12:00am latanoprost 0.05 mg/ml ophthalmic solution (2 sources) Prostaglandin Analog Start: 01-02-2025 Latanoprost 0.005 % [...] attention, # 100 tab(s), 0 Refill(s), Pharmacy: [id number], 167, cm, 05/19/22 11:15:00 EST, Height Start Date: 05/19/22 Stop Date: 08/17/22 Status: Ordered Quantity: 100.0 Unit: tab(s) Repeat number: 1 pantoprazole 40 mg delayed release oral tablet (1 source) Proton Pump Inhibitor Start: 11-10-2022 pantoprazole 40 mg oral enteric coated tablet Dose : 40 mg = 1 tab(s), Oral, qDay, # 30 tab(s), 0 Refill(s), Pharmacy: [facility] #[id number], 167.6, cm, 11/10/22 6:22:00 EDT, Height Start [...] number: 1 sildenafil 25 mg oral tablet (16 sources) Phosphodiesterase 5 Inhibitor Start: 09-12-2023 Sildenafil [...] 30 tab(s), 0 Refill(s), [facility]: [facility] #[id number], 167, cm, 08/11/23 10:08:00 EST, Height, kg, 08/11/23 10:08:00 EST, Dosing Weight Start Date: 08/11/23 Stop Date: 09/10/23 Status: Ordered Quantity: 30.0 Unit: tab(s) Repeat number: 1 silver sulfADIAZINE 10 mg/ml topical cream (1 source) Sulfonamide Antibacterial Start: 11-20-2024 silver sulfADIAZINE 1% topical cream Apply 1 mali, Topical, BID, # 30 gram(s), 0 Refill(s), Pharmacy: [facility], Cream, 166, cm, 11/20/24 9:50:00 EDT, Height, 133.3, kg, 11/20/24 9:50:00 EDT, Dosing Weight Start Date: 11/20/24 Status: Ordered Quantity: 30.0 Unit: g Repeat number: 1 spironolactone 25 mg oral tablet (3 sources) Aldosterone Antagonist Start: 12-26-2024 take 1 tablet by mouth once daily Spironolactone 25 mg tablet Active 25 mg PO daily 08 06December 26, 2024 12:00am terbinafine hydrochloride 10 mg/ml topical cream (11 sources) Allylamine Antifungal Start: 10-07-2024 Terbinafine Hcl 1 % cream Active [facility] October 07, 2024 12:00am Start: 08-14-2024 End: 10-09-2024 terbinafine 1% topical cream Apply 1 mali, Topical, BID, # 30 gram(s), 1 Refill(s), Pharmacy: [facility], Cream, 168, cm, 08/14/24 9:37:00 EST, [...] NEEDED as needed for Pain 10 2 0 December 21, 2018 12:00am December 22, 2018 12:00am December 23, 2018 12:08am Calculus of kidney Calculus of kidney Start: 12-21-2018 End: 12-23-2018 take 1 tablet by mouth every four hours as needed Hydrocodone-Acetaminophen Discontinued 1 TABLET PO EVERY 4 HOURS NEEDED 10 2 December 21, 2018 12:00am December 23, 2018 12:08am Start: 02-22-2017 End: 11-29-2017 Hydrocodone-Acetaminophen 1 TABLET tablet Discontinued 1 - 2 {tbl} PO EVERY 4 HOURS NEEDED as needed for Pain 20 0 February 22, 2017 12:00am November 29, 2017 3:57pm Start: 02-22-2017 End: 11-29-2017 take 1 tablet by mouth every four hours as needed Hydrocodone-Acetaminophen Discontinued 1 - 2 TABLET PO EVERY 4 HOURS NEEDED February 22, 2017 12:00am November 29, 2017 3:57pm acetaminophen 325 mg / oxyCODONE hydrochloride 5 mg oral tablet (20 sources) Opioid Agonist Start: 07-02-2024 End: 10-07-2024 Oxycodone-Acetaminophen (Percocet) 5-325 mg tablet Discontinued 1 {tbl} PO EVERY 6 HOURS as needed for pain 12 3 0 July 02, 2024 October 07, 2024 8:13am Acute gout Gout, unspecified Start: 02-25-2017 End: 11-29-2017 Oxycodone-Acetaminophen 1 EA [...] mg tablet Discontinued 5 mg PO DAILY 90 3 November 29, 2019 3:34pm January 06, 2021 3:05pm blood pressure Start: 09-04-2013 End: 09-23-2015 take 2 tablets by mouth once daily Amlodipine 5 MG tablet Discontinued 10 mg PO DAILY 30 0 September 04, 2013 1:11pm September 23, 2015 4:14pm Start: 09-04-2013 End: 09-23-2015 take 10 mg by mouth once daily Amlodipine Discontinued 10 MG PO DAILY 30 September 04, 2013 1:11pm September 23, 2015 4:14pm Start: 08-19-2013 End: 09-04-2013 take 1 tablet by mouth once daily Amlodipine 5 MG tablet Discontinued 5 mg PO DAILY August 19, 2013 1:00am September 04, 2013 1:11pm aspirin 81 mg delayed release oral tablet (20 sources) Platelet Aggregation Inhibitor, Nonsteroidal Anti-inflammatory Drug Start: 11-18-2015 End: 11-01-2022 take 1 tablet by mouth once daily Aspirin 81 MG tablet,delayed release (DR/EC) Discontinued 81 mg PO DAILY November 18, 2015 12:00am November 01, 2022 9:35am cephalexin 500 mg oral capsule (13 sources) Cephalosporin Antibacterial Start: 05-17-2022 End: 05-26-2022 take 1 capsule by mouth three times daily Cephalexin 500 mg capsule Discontinued 500 mg PO THREE TIMES A DAY 21 7 0 May 17, 2022 1:00am May 26, 2022 11:31am hydroCHLOROthiazide 12.5 mg / lisinopril 20 mg oral tablet (13 sources) Thiazide Diuretic, Angiotensin Converting Enzyme Inhibitor [...] mg tablet Discontinued 1 {tbl} PO DAILY 90 March 04, 2022 11:21am December 26, 2024 1:54pm htn Start: 09-23-2015 End: 03-04-2022 take 1 tablet by mouth once daily Spironolacton-Hydrochlorothiaz Discontin ued 1 TABLET PO DAILY 90 November 29, 2019 3:34pm January 06, 2021 3:05pm ibuprofen 600 mg oral tablet (13 sources) Nonsteroidal Anti-inflammatory Drug Start: 08-19-2013 End: 09-04-2013 take 1 tablet by mouth every eight hours as needed for pain Ibuprofen 600 MG tablet Discontinued 600 mg PO EVERY 8 HOURS NEEDED as needed for Pain August 19, 2013 1:00am September 04, 2013 1:09pm metoprolol tartrate 25 mg oral tablet (9 sources) beta-Adrenergic Ke Start: 07-18-2022 End: 07-27-2022 Metoprolol Tartrate 25 mg tablet Discontinued 12.5 mg PO DAILY 22 12July 18, 2022 1:00am July 27, 2022 3:06pm Start: 07-18-2022 End: 07-27-2022 take 12.5 mg by mouth once daily Metoprolol Tartrate Discontinued 12.5 MG PO DAILY July 18, 2022 1:00am July 27, 2022 3:06pm naproxen 500 mg oral tablet (13 sources) Nonsteroidal Anti-inflammatory Drug Start: 02-25-2017 End: 11-29-2017 take 1 tablet by mouth twice daily Naproxen 500 MG tablet Discontinued 500 mg PO TWICE A DAY 14 0 February 25, 2017 12:00am November 29, 2017 [...] 2017 3:57pm predniSONE 20 mg oral tablet (7 sources) Start: 07-02-2024 End: 10-07-2024 take 3 tablets by mouth once daily Prednisone 20 mg tablet Discontinued 60 mg PO DAILY 15 July 02, 2024 1:00am October 07, 2024 8:13am rosuvastatin calcium 10 mg oral tablet (13 sources) HMG-CoA Reductase Inhibitor Start: 12-04-2019 End: 12-09-2020 take 1 tablet by mouth once daily Rosuvastatin (Crestor) 10 mg tablet Discontinued 10 mg PO DAILY 90 December 04, 2019 12:00am December 09, 2020 4:11pm simvastatin 20 mg oral tablet (20 sources) HMG-CoA Reductase Inhibitor Start: 04-16-2019 End: 12-04-2019 take 1 tablet by mouth once daily Simvastatin 20 mg tablet Discontinued 20 mg PO DAILY 90 3 October 23, 2019 2:02pm December 04, 2019 6:01pm Start: 06-07-2018 End: 04-16-2019 take 1 tablet by mouth at bedtime Simvastatin 40 mg tablet Discontinued 40 mg PO AT BEDTIME 90 December 04, 2018 1:06pm April 16, 2019 8:49am Start: 02-22-2017 End: 06-07-2018 take 1 tablet by mouth once daily Simvastatin 20 mg tablet Discontinued 20 mg PO DAILY 90 December 07, 2017 1:26pm June 07, 2018 2:16pm cholesterol tamsulosin hydrochloride 0.4 mg oral capsule (13 sources) alpha-Adrenergic Ke Start: 02-22-2017 End: 12-07-2017 take 1 capsule by mouth once daily Tamsulosin 0.4 MG capsule Discontinued 0.4 mg PO DAILY 14 0 February 22, 2017 12:00am December 07, 2017 1:22pm Problems Active Problems Problem Classification Problem Date Documented Date Episodic/Chronic Abdominal pain (9 sources) Right flank pain; Translations: [Unspecified abdominal pain] 10-16-2022 Episodic Aortic; peripheral; and visceral artery aneurysms (8 sources) Aortic root dilatation 08-16-2023 Chronic Calculus of urinary tract (20 sources) Kidney stone; Translations: [Renal colic] 12-24-2019 Episodic Comment on above: uric acid stones Cardiac dysrhythmias (20 sources) Multiple premature ventricular complexes; Translations: [Ventricular premature depolarization] Onset: Chronic Comment on above: S/p ablation for atr ial fibrillation and flutter on 11/10/2022 at [facility]; Cardiac dysrhythmias (20 sources) Sinus bradycardia; Translations: [...] Chronic Immunizations and screening for infectious disease (7 sources) Patient encounter status; Translations: [Encounter for immunization] 06-21-2024 Episodic Malaise and fatigue (12 sources) Fatigue; Translations: [Other fatigue] 09-12-2022 Episodic Nonspecific chest pain (20 sources) Chest pain; Translations: [Chest pain, unspecified] 05-19-2022 Episodic Osteoarthritis (20 sources) Osteoarthritis 06-25-2019 Chronic Other acquired deformities (20 sources) Lumbar spondylolisthesis; Translations: [Spondylolisthesis, lumbar region] Onset: 3 02-11-2022 Episodic Other aftercare (6 sources) Long-term current use of anticoagulant; Translations: [truck terminal manager (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) use of anticoagulants] Onset: 3 Episodic Other aftercare (1 source) truck terminal manager (current) use of anticoagulants; Translations: [truck terminal manager (current) use of anticoagulants] Onset: 5 Episodic Other and ill-defined heart disease (6 sources) Left ventricular hypertrophy 02-01-2024 Chronic Other circulatory disease (13 sources) Abnormal peripheral pulse; Translations: [Other specified [...] fall 10-20-2021 Episodic Other lower respiratory disease (19 sources) Dyspnea; Translations: [Dyspnea, unspecified] 01-06-2021 Episodic Other lower respiratory disease (5 sources) Dyspnea, unspecified; Translations: [Other respiratory abnormalities] Onset: 5 Episodic Other lower respiratory disease (16 sources) Nodule of lung 11-06-2022 Episodic Comment on above: 10 mm Right medial l ower lung/subpleural 11/04/22 Other lower respiratory disease (20 sources) Solitary nodule of lung; Translations: [Solitary [...] Chronic Other nutritional; endocrine; and metabolic disorders (13 sources) Obesity; Translations: [Obesity, unspecified] 08-06-2019 Chronic [...] (pediatric); Translations: [Obstructive sleep apnea (adult)(pediatric)] Onset: Chronic Residual codes; unclassified (1 source) Central sleep apnea syndrome; Translations: [Primary central sleep apnea] 01-06-2025 Chronic Residual codes; unclassified (20 sources) H/O Spinal surgery 06-25-2019 Episodic Residual codes; unclassified (20 sources) Immunization due 04-24-2020 Episodic Residual codes; unclassified (20 sources) Past history of procedure 12-22-2021 Episodic Residual codes; unclassified (19 sources) Screening due 05-19-2022 Episodic Residual codes; unclassified (10 sources) Edema of lower extremity; Translations: [Localized [...] Drug therapy finding 08-26-2022 Urinary tract infections (13 sources) Acute pyelonephritis; Translations: [Acute pyelonephritis] 05-25-2022 [...] Test Name Value Interpretation Reference Range Facility Anion gap in Serum or Plasma Ordered By: Donn Hawk on 01-06-2025 Anion gap [Moles/Vol] 11 mmol/L 11-21 [facility] BUN/creatinine ratioOrdered By: Donn Hawk on 01-06-2025 Urea nitrogen/Creatinine [Mass ratio] 22.4 mg/mg High 04-28 [facility] Basic Metabolic Profile (BMP )on 01-06-2025 BUN/CRE 22.4 RATIO High 04-28 [facility] Comment on above: Performed By: #### L 500.2500 #### [facility] [place], [address] Calcium [Mass/Vol] 9.0 mg/dL Normal 7.6-11.0 [facility] Comment on above: Performed By: #### L 500.2500 #### [facility] [address] [place], [address] Chloride [Moles/Vol] 102 mmol/L Normal 98-108 [facility] Comment on above: Performed By: #### L 500.2500 #### [facility] [address] [place], [address] CO2 [Moles/Vol] 29.6 mmol/L Normal 21.0-32.0 [facility] Comment on above: Performed By: #### L 500.2500 #### [facility] [address] [place], [address] Creatinine [Mass/Vol] 0.95 mg/dL Normal 0.70-1.20 [facility] Comment on above: Performed By: #### L 500.2500 #### [facility] [address] [place], [address] GAP 11 Normal 5-15 [facility] Comment on above: Performed By: #### L 500.2500 #### [facility] [address] [place], [address] GFR/1.73 sq M.predicted among non-blacks MDRD (S/P/Bld) [Vol rate/Area] 88 mL/min/{1.73_m2} Normal >60 [facility] Comment on above: Result Comment: mL/m in/1.73m2 CKD-EPI Creatinine Equation (2020) Performed By: #### L 500.2500 #### [facility] [address] [place], [address] Glucose [Mass/Vol] 90 mg/dL Normal 70-99 [facility] Comment on above: Performed By: #### L 500.2500 #### [facility] [address] [place], [address] Potassium [Moles/Vol] 4.1 mmol/L Normal 3.3-5.1 [facility] Comment on above: Performed By: #### L 500.2500 #### [facility] [address] [place], [address] Sodium [Moles/Vol] 142 mmol/L Normal 133-145 [facility] Comment on above: Performed By: #### L 500.2500 #### [facility] [address] [place], [address] Urea nitrogen [Mass/Vol] 21 mg/dL High 4-19 [facility] Comment on above: Performed By: #### L 500.2500 #### [facility] [address] [place], [address] Carbon dioxide, total [Moles /volume] in Central venous bloodOrdered By: Donn Hawk on 01-06-2025 CO2 [Moles/Vol] 29.6 mmol/L 21.0-32.0 [facility] Chloride assayOrdered By: Mt Hawk on 01-06-2025 Chloride [Moles/Vol] 102 mmol/L 98-108 [facility] Glomerular filtration rate ( GFR) estimation/1.73 sq m using serum, plasma, or whole bOrdered By: Donn Hawk on 01-06-2025 GFR/1.73 sq M.predicted among non-blacks MDRD (S/P/Bld) [Vol rate/Area] 88 mL/min/{1.73_m2} >60 [facility] Comment on above: mL/min/1.73m2 CKD-EP I Creatinine Equation (2020) Potassium measurement (mass/ volume)Ordered By: Donn Hawk on 01-06-2025 Potassium (Unsp spec) [Mass/Vol] 4.1 mmol/L 3.3-5.1 [facility] Serum creatinine measurement (mass/volume)Ordered By: Donn Hawk on 01-06-2025 Creatinine [Mass/Vol] 0.95 mg/dL 0.70-1.20 [facility] Serum glucose measurement (m ass/volume)Ordered By: Donn Hawk on 01-06-2025 Glucose [Mass/Vol] 90 mg/dL 70-99 [facility] Serum or plasma calcium nallely urement (mass/volume)Ordered By: Donn Hawk on 01-06-2025 Calcium [Mass/Vol] 9.0 mg/dL 7.6-11.0 [facility] Serum or plasma urea nitroge n measurement (mass/volume)Ordered By: Donn Hawk on 01-06-2025 Urea nitrogen [Mass/Vol] 21 mg/dL High 4-19 [facility] Sodium levelOrdered By: Christo Hawk on 01-06-2025 Sodium [Moles/Vol] 142 mmol/L 133-145 [facility] Pulmonary Visit Reporton Pulmonary Visit Report [facility] [place] [address] [place] [address]. [address] [place] [address] OFFICE VISIT Date of Service: 01/02/25 MR#: [id number] Acct: [id number] Name: KRYSTYNA PADGETT Rep #: [id number] 3 : 1955 Provider: MIKAYLA Ruiz Age/Sex: 69/M Location: [facility] [facility] Status: Signed Assessment and Plan Assessment and [...] diffusing capacity. 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 Walking [...] Additional Comments: This note was generated with citizenmadeation software. It may contain incorrect words, spelling, [...] 6 M FU Chief Complaint: F/u MARIELENA Stripe Matcher Required: No DME Vendor: Alexi Accompanied by: [...] tabs 09/29/ (more content not included)... Normal [facility] Cardiology Visit Reporton Cardiology Visit Report [facility] [address] [place] [address] OFFICE VISIT Date of Service: 12/26/24 MR#: [id number] Acct: [id number] Name: KRYSTYNA PADGETT Rep #: [id number] : 1955 Provider: Dr. Donn Hawk MD Age/Sex: 69/M Location[facility] Status: Signed HPI HPI History of [...] extremity edema. Intake Vital Signs 10/25/24 07:50 06/12/25 08:24 12/26/24 13:29 Height 5 ft 6 in 5 ft 6 in 5 ft 6 in Weight: 290 lb BMI 46.7 BP 119/69 Blood Pressure Location Lt brachial Position Sitting Respiration 18 Pulse 68 Pulse Source Monitor Pulse Oximetry (%) 96 Oxygen Delivery Method room air Intake Visit Reasons: 1 Y FU Stripe Matcher Required: No Accompanied by: Self Is patient [...] (premature ventricular contractions) Atherosclerotic heart disease of [place] coronary artery without angina pectoris Sinus bradycardia [...] patient al (more content not included)... Normal [facility] 6 Minute Walk Teston 025 6 Minute Walk Test y [facility] Pulmonary Services/Neurology [address] [place] [address] MR#: [id number] Acct: [id number] Name: KRYSTYNA PADGETT Rep #: [id number] : 1955 69 From: Cale Ron DO Referring Dr: Cathy Ruiz [employer]PLICATION DEVELOPER [employer] APPLICATION DEVELOPER-C Status: REG CLI Location: PSN Date: Sex: M C PSN 6 Minute Walk Test 6 Minute Walk Test 6 Minute Walk Test: 6 Minute Walk Test PSN:6-Minute Walk Test Start: 12/19/24 08:24 Freq: Status: Active Protocol: RESP.6MINW Document 12/19/24 08:24 [facility] (Rec: 12/19/24 08:30 [facility] [id number]) 6 Minute Walk Test Date Performed 12/19/24 Time Performed 08:00 Height 5 ft 6 in Weight: 294 lb Weight in Pounds 294.[address]: Cathy Ruiz NP Assistive device None used: Pre-test Oxygen Delivery [...] Dictated: 12/23/24 1020 Date Transcribed: 12/23/24 1020 Endoscope Technician: Dr. Cale Ron, DO Signed Normal [facility] 11-20-2024 U Creatinine 87.0 mg/dL Normal 40.0-278.0 [facility] Comment on above: Performed By: #### A DIFF, PSA, ANEU, CBC, A1C, GFR, CMP, URIC, LIPID #### [address] [address] #### HCV1 #### [address] [address] U Microalb 6.0 mg/L Normal [facility] Comment on above: Performed By: #### A DIFF, PSA, ANEU, CBC, A1C, GFR, CMP, URIC, LIPID #### [address] [address] #### HCV1 #### [address] [address] U Ratio Alb/Cre 7 mg/G Normal 0-30 [facility] Comment on above: Performed By: #### A DIFF, PSA, ANEU, CBC, A1C, GFR, CMP, URIC, LIPID #### [facility] [address] [place], [place] [address] #### HCV1 #### [facility] [address] [place] [address] Pulmonary Visit Reporton Pulmonary Visit Report [facility] [place] [address] [place] [address] OFFICE VISIT Date of Service: 10/25/24 MR#: [id number] Acct: [id number] Name: KRYSTYNA PADGETT Rep #: [id number] : 1955 Provider: MIKAYLA Ruiz Age/Sex: 69/M Location: [facility] Status: Signed Assessment and Plan Assessment and [...] fu, Test results Chief Complaint: F/u MARIELENA Stripe Matcher Required: No DME Vendor: Alexi Accompanied by: [...] year?: No PFSH Medical History ... Normal [facility] Positron emission tomography scan reportOrdered By: Ryan Santana on 10-17-2024 PT Unspecified body region [facility] Imaging Services [address] [place] [address] PET/CT Tumor Base -Thigh Init MR#: [id number] Acct: [id number] Name: KRYSTYNA PADGETT Rep #: [id number] : 1955 M 69 From: Pet er Franky DUBOIS PCP: Dr. Manasa Zendejas DO Status: REG CLI Study:PET/CT Tumor Base -Thigh Init Date of E xam: 10/15/24 Exam# [id number] Ordering Dr: Tejas Ruiz NP [employer] DEVELOPER-C ADDENDUM by Dr. Ryan Santana DO on 10/17/24 at 1042 Previous PET exam images from 11/21/2023 are now available for comparison. The prior exam showed no abnormal right lung hypermetabolic focus. There has been no interval change. The current study shows no abnormal hypermetabolic focus in the right lung. Reading Location: [facility] 10/17/24 1042 Date cc: MIKAYLA Ruiz; Dr. [...] IMPRESSION: No abnormal hypermetabolic uptake. Reading Location: [facility] CC: MIKAYLA Ruiz; Dr. Manasa Zendejas DO ~ Endoscope Technician: Signed [facility] PET/CT Tumor Base -Thigh Ini ton 10-15-2024 PET/CT Tumor Base -Thigh Init [facility] Imaging Services [address] [place] [address] PET/CT Tumor Base -Thigh Init MR#: [id number] Acct: [id number] Name: KRYSTYNA PADGETT Rep #: [id number] : 1955 M 69 From: Ryan Santana DO PCP: Dr. Manasa Zendejas DO Status: REG CLI Study: PET/CT Tumor Base -Thigh Init Date of Exam: Exam# [id number] Ordering Dr: Cathy Ruiz NP ADDENDUM by Dr. Ryan Santana DO on 10/17/24 at 1042 Previous PET exam images from 11/21/2023 are now available for comparison. The prior exam showed no abnormal right lung hypermetabolic focus. There has been no interval change. The current study shows no abnormal hypermetabolic focus in the right lung. Reading Location: [facility] 10/17/24 1042 Date cc: MIKAYLA Ruiz; Dr. [...] IMPRESSION: No abnormal hypermetabolic uptake. [facility] CC: MIKAYLA Ruiz; Dr. Manasa Zendejas DO Endoscope Technician: Signed Normal [facility] Activated partial thrombopla stin time (aPTT) in platelet poor plasma by coagulation aOrdered By: Cahty Ruiz on 10-07-2024 aPTT Coag (PPP) [Time] 32.2 s 24.1-36.2 [facility] International normalized rat io (INR) calculationOrdered By: Cathy Ruiz on 10-07-2024 INR Coag (Bld) [Relative time] 1.1 {INR} [facility] Partial Thromboplast Timeon 10-07-2024 aPTT Coag (Bld) [Time] 32.2 s Normal 24.1-36.2 [facility] Comment on above: Performed By: #### L 100.1900, L300.3900, L300.4310 #### [facility] [address] [place], [address] Platelet Counton 10-07-2024 Platelets (Bld) [#/Vol] 227 10*3/uL Normal 150-450 [facility] Comment on above: Performed By: #### L 100.1900, L300.3900, L300.4310 #### [facility] [address] [place], [address] Platelet countOrdered By: Adryan Ruiz on 10-07-2024 Platelets (Bld) [#/Vol] 227 10*3/uL 150-450 [facility] Prothrombin Time w/INRon INR Coag (PPP) [Relative time] 1.1 {INR} Normal [facility] Comment on above: Performed By: #### L 100.1900, L300.3900, L300.4310 #### [facility] [address] [place], [address] PT Coag (PPP) [Time] 14.2 s Normal 11.7-14.9 [facility] Comment on above: Performed By: #### L 100.1900, L300.3900, L300.4310 #### [facility] [address] [place], [address] Prothrombin timeOrdered By: Cathy Ruiz on 10-07-2024 PT Coag (PPP) [Time] 14.2 s 11.7-14.9 [facility] Pulmonary Visit Reporton Pulmonary Visit Report [facility] [place] [address] [place] [address] OFFICE VISIT Date of Service: 10/07/24 MR#: [id number] Acct: [id number] Name: KRYSTYNA PADGETT Rep #: [id number] : 1955 Provider: MIKAYLA Ruiz Age/Sex: 69/M Location: [facility] Status: Signed Assessment and Plan Assessment and [...] field Plan Details Follow Up: 2 Weeks ([facility]) HPI Discuss CT Chief Complaint: Test results [...] Reasons: Discuss CT Chief Complaint: F/u MARIELENA Stripe Matcher Required: No DME Vendor: Alexi Accompanied by: [...] 25 mg (more content not included)... Normal [facility] aPTT Coag (PPP) [Time]Ordere d By: Cathy Ruiz on 10-07-2024 aPTT Coag (Bld) [Time] 32.2 s 24.1-36.2 [facility] CT ANGIOGRAPHY CHEST W/CONTR Torsten 10-01-2024 CT [...] Date: 10/01/2024 1:06:02 PM Ordering Provider: MANASA Rahman [facility] .Auto Diffon 08-23-2024 Basophil, Absolute 0.0 10 3/mcL Normal 0.0-0.2 [facility] Comment on above: Performed By: #### A DIFF, PSA, ANEU, CBC, A1C, GFR, CMP, URIC, LIPID #### [facility] [address] [place], [place] [address] #### HCV1 #### [facility] [address] [place] [address] Basophils/100 WBC (Bld) 0.4 % Normal 0.0-2.5 [facility] Comment on above: Performed By: #### A DIFF, PSA, ANEU, CBC, A1C, GFR, CMP, URIC, LIPID #### [place] [address] #### HCV1 #### [address] [address] Eosinophil, Absolute 0.1 10 3/mcL Normal 0.0-0.7 [facility] Comment on above: Performed By: #### A DIFF, PSA, ANEU, CBC, A1C, GFR, CMP, URIC, LIPID #### [place] [address] #### HCV1 #### [address] [address] Eosinophils/100 WBC (Bld) 1.2 % Normal 0.0-7.0 [facility] Comment on above: Performed By: #### A DIFF, PSA, ANEU, CBC, A1C, GFR, CMP, URIC, LIPID #### [place] [address] #### HCV1 #### [address] [address] Lymphocyte, Absolute 1.3 10 3/mcL Normal 0.9-4.3 [facility] Comment on above: Performed By: #### A DIFF, PSA, ANEU, CBC, A1C, GFR, CMP, URIC, LIPID #### [place] [address] #### HCV1 #### [address] [address] Lymphocytes/100 WBC (Bld) 15.2 % Low 20.0-40.0 [facility] Comment on above: Performed By: #### A DIFF, PSA, ANEU, CBC, A1C, GFR, CMP, URIC, LIPID #### [place] [address] #### HCV1 #### [address] [address] Monocyte, Absolute 0.6 10 3/mcL Normal 0.1-1.4 [facility] Comment on above: Performed By: #### A DIFF, PSA, ANEU, CBC, A1C, GFR, CMP, URIC, LIPID #### [address] [address] #### HCV1 #### [address] [address] Monocytes/100 WBC (Bld) 6.6 % Normal 2.0-13.0 [facility] Comment on above: Performed By: #### A DIFF, PSA, ANEU, CBC, A1C, GFR, CMP, URIC, LIPID #### [address] [address] #### HCV1 #### [address] [address] Neutrophils/100 WBC (Bld) 76.6 % High 50.0-75.0 [facility] Comment on above: Performed By: #### A DIFF, PSA, ANEU, CBC, A1C, GFR, CMP, URIC, LIPID #### [address] [address] #### HCV1 #### [address] [address] .GFRon 08-23-2024 Estimated Glomerular Filtration Rate 96 ml/min/1.73sqm Normal [facility] Comment on above: Result Comment: Stages of [...] CBC, A1C, GFR, CMP, URIC, LIPID #### [address] [address] #### HCV1 #### [address] [address] .NEUABSon 08-23-2024 Neutrophil, Absolute 6.4 10 3/mcL Normal 2.3-8.1 [facility] Comment on above: Performed By: #### A DIFF, PSA, ANEU, CBC, A1C, GFR, CMP, URIC, LIPID #### [address] [address] #### HCV1 #### [place] [address] A1Con 08-23-2024 Glucose [Mass/Vol] 114 mg/dL Normal [facility] Comment on above: Order Comment: cc re sults to cardiology ([place]) Dr. Hawk Result Comment: Radha mated Average Glucose calculated by equation ((28.7xA1C)-46.7) Estimated average glucose (eAG) is a calculated value from Hemoglobin A1C and is labor relations representative of the average blood glucose level in the last 2-3 month period. Normal range: less than 114 mg/dL Performed By: #### A DIFF, PSA, ANEU, CBC, A1C, GFR, CMP, URIC, LIPID #### [address] [address] #### HCV1 #### [place] [address] HbA1c (Bld) [Mass fraction] 5.6 % Normal 4.3-6.4 [facility] Comment on above: Order Comment: cc re sults to cardiology ([place]) Dr. Hawk Performed By: #### A DIFF, PSA, ANEU, CBC, A1C, GFR, CMP, URIC, LIPID #### [address] [address] #### HCV1 #### [place] [address] CBCon 08-23-2024 Erythrocyte distribution width (RBC) [Ratio] 14.5 % Normal 11.5-15.5 [facility] Comment on above: Order Comment: cc re sults to cardiology ([place]) Dr. Hawk Performed By: #### A DIFF, PSA, ANEU, CBC, A1C, GFR, CMP, URIC, LIPID #### [address] [address] #### HCV1 #### [place] [address] Hematocrit (Bld) [Volume fraction] 42.3 % Normal 40.0-52.0 [facility] Comment on above: Order Comment: cc re sults to cardiology ([place]) Dr. Hawk Performed By: #### A DIFF, PSA, ANEU, CBC, A1C, GFR, CMP, URIC, LIPID #### [address] [address] #### HCV1 #### [place] [address] Hgb 14.4 G/dL Normal 13.0-17.5 [facility] Comment on above: Order Comment: cc re sults to cardiology ([place]) Dr. Hawk Performed By: #### A DIFF, PSA, ANEU, CBC, A1C, GFR, CMP, URIC, LIPID #### [place] [address] #### HCV1 #### [place] [address] MCH (RBC) [Entitic mass] 30.0 pg Normal 27.0-33.0 [facility] Comment on above: Order Comment: cc re sults to cardiology ([place]) Dr. Hawk Performed By: #### A DIFF, PSA, ANEU, CBC, A1C, GFR, CMP, URIC, LIPID #### [place] [address] #### HCV1 #### [place] [address] MCHC 34.0 G/dL Normal 32.0-36.0 [facility] Comment on above: Order Comment: cc re sults to cardiology ([place]) Dr. Hawk Performed By: #### A DIFF, PSA, ANEU, CBC, A1C, GFR, CMP, URIC, LIPID #### [place] [address] #### HCV1 #### [address] [address] MCV (RBC) [Entitic vol] 88.5 fL Normal 81.0-100.0 [facility] Comment on above: Order Comment: cc re sults to cardiology ([place]) Dr. Hawk Performed By: #### A DIFF, PSA, ANEU, CBC, A1C, GFR, CMP, URIC, LIPID #### [address] [address] #### HCV1 #### [address] [address] Platelet 213 10 3/mcL Normal 150-450 [facility] Comment on above: Order Comment: cc re sults to cardiology ([place]) Dr. Hawk Performed By: #### A DIFF, PSA, ANEU, CBC, A1C, GFR, CMP, URIC, LIPID #### [address] [address] #### HCV1 #### [place] [address] Platelet mean volume (Bld) [Entitic vol] 9.3 fL Normal 6.4-10.5 [facility] Comment on above: Order Comment: cc re sults to cardiology ([place]) Dr. Hawk Performed By: #### A DIFF, PSA, ANEU, CBC, A1C, GFR, CMP, URIC, LIPID #### [address] [address] #### HCV1 #### [place] [address] RBC 4.79 10 6/mcL Normal 4.50-6.00 [facility] Comment on above: Order Comment: cc re sults to cardiology ([place]) Dr. Hawk Performed By: #### A DIFF, PSA, ANEU, CBC, A1C, GFR, CMP, URIC, LIPID #### [address] [address] #### HCV1 #### [place] [address] WBC 8.4 10 3/mcL Normal 4.5-10.8 [facility] Comment on above: Order Comment: cc re sults to cardiology ([place]) Dr. Hawk Performed By: #### A DIFF, PSA, ANEU, CBC, A1C, GFR, CMP, URIC, LIPID #### [address] [address] #### HCV1 #### [address] [address] CMPon 08-23-2024 Albumin Level 3.8 G/dL Normal 3.4-4.8 [facility] Comment on above: Order Comment: cc re sults to cardiology ([place]) Dr. Hawk Performed By: #### A DIFF, PSA, ANEU, CBC, A1C, GFR, CMP, URIC, LIPID #### [address] [address] #### HCV1 #### [address] [address] Albumin/Globulin [Mass ratio] 1.1 {ratio} Normal 1.1-2.5 [facility] Comment on above: Order Comment: re sults to cardiology ([place]) Dr. Hawk Performed By: #### A DIFF, PSA, ANEU, CBC, A1C, GFR, CMP, URIC, LIPID #### [address] [address] #### HCV1 #### [address] [address] ALP [Catalytic activity/Vol] 71 U/L Normal 40-135 [facility] Comment on above: Order Comment: re sults to cardiology ([place]) Dr. Hawk Performed By: #### A DIFF, PSA, ANEU, CBC, A1C, GFR, CMP, URIC, LIPID #### [address] [address] #### HCV1 #### [address] [address] ALT [Catalytic activity/Vol] 21 U/L Normal 16-63 [facility] Comment on above: Order Comment: cc re sults to cardiology ([place]) Dr. Hawk Performed By: #### A DIFF, PSA, ANEU, CBC, A1C, GFR, CMP, URIC, LIPID #### [address] [address] #### HCV1 #### [address] [address] AST [Catalytic activity/Vol] 15 U/L Normal 10-40 [facility] Comment on above: Order Comment: re sults to cardiology ([place]) Dr. Hawk Performed By: #### A DIFF, PSA, ANEU, CBC, A1C, GFR, CMP, URIC, LIPID #### [address] [address] #### HCV1 #### [place] [address] Bili Total 1.0 mg/dL Normal 0.2-1.0 [facility] Comment on above: Order Comment: re sults to cardiology ([place]) Dr. Hawk Result Comment: Use of this assay is not recommended for patients undergoing treatment with eltrombopag due to the potential for falsely elevated results. Performed By: #### A DIFF, PSA, ANEU, CBC, A1C, GFR, CMP, URIC, LIPID #### [place] [address] #### HCV1 #### [place] [address] BUN/Creatinine Ratio 26 ratio Normal 7-27 [facility] Comment on above: Order Comment: re sults to cardiology ([place]) Dr. Hawk Performed By: #### A DIFF, PSA, ANEU, CBC, A1C, GFR, CMP, URIC, LIPID #### [address] [address] #### HCV1 #### [place] [id number] Calcium [Mass/Vol] 9.4 mg/dL Normal 8.4-10.2 [facility] Comment on above: Order Comment: re sults to cardiology ([place]) Dr. Hawk Performed By: #### A DIFF, PSA, ANEU, CBC, A1C, GFR, CMP, URIC, LIPID #### [address] [address] #### HCV1 #### [place] [address] Chloride [Moles/Vol] 104 mmol/L Normal 98-107 [facility] Comment on above: Order Comment: cc re sults to cardiology ([place]) Dr. Hawk Performed By: #### A DIFF, PSA, ANEU, CBC, A1C, GFR, CMP, URIC, LIPID #### [place] [address] #### HCV1 #### [place] [address] CO2 [Moles/Vol] 34 mmol/L High 23-31 [facility] Comment on above: Order Comment: re sults to cardiology ([place]) Dr. Hawk Performed By: #### A DIFF, PSA, ANEU, CBC, A1C, GFR, CMP, URIC, LIPID #### [place] [address] #### HCV1 #### [place] [address] Creatinine [Mass/Vol] 0.81 mg/dL Normal 0.70-1.30 [facility] Comment on above: Order Comment: cc re sults to cardiology ([place]) Dr. Hawk Result Comment: Test ing performed on Siemens Dimension EXL analyzer using a modified kinetic Shahana technique. Performed By: #### A DIFF, PSA, ANEU, CBC, A1C, GFR, CMP, URIC, LIPID #### [place] [address] #### HCV1 #### [place] [address] Electrolyte Balance 2.0 mEq/L Low 4.0-15.0 [facility] Comment on above: Order Comment: re sults to cardiology ([place]) Dr. Hawk Performed By: #### A DIFF, PSA, ANEU, CBC, A1C, GFR, CMP, URIC, LIPID #### [place] [address] #### HCV1 #### [address] [address] Globulin 3.4 G/dL Normal 1.5-3.8 [facility] Comment on above: Order Comment: cc re sults to cardiology ([place]) Dr. Hawk Performed By: #### A DIFF, PSA, ANEU, CBC, A1C, GFR, CMP, URIC, LIPID #### [address] [address] #### HCV1 #### [address] [address] Glucose [Mass/Vol] 89 mg/dL Normal 80-115 [facility] Comment on above: Order Comment: cc re sults to cardiology ([place]) Dr. Hawk Performed By: #### A DIFF, PSA, ANEU, CBC, A1C, GFR, CMP, URIC, LIPID #### [address] [address] #### HCV1 #### [address] [address] Potassium [Moles/Vol] 3.6 mmol/L Normal 3.5-5.1 [facility] Comment on above: Order Comment: cc re sults to cardiology ([place]) Dr. Hawk Performed By: #### A DIFF, PSA, ANEU, CBC, A1C, GFR, CMP, URIC, LIPID #### [address] [address] #### HCV1 #### [address] [address] Sodium [Moles/Vol] 140 mmol/L Normal 136-145 [facility] Comment on above: Order Comment: cc re sults to cardiology ([place]) Dr. Hawk Performed By: #### A DIFF, PSA, ANEU, CBC, A1C, GFR, CMP, URIC, LIPID #### [address] [address] #### HCV1 #### [address] [address] Total Protein 7.2 G/dL Normal 6.4-8.2 [facility] Comment on above: Order Comment: cc re sults to cardiology ([place]) Dr. Hawk Performed By: #### A DIFF, PSA, ANEU, CBC, A1C, GFR, CMP, URIC, LIPID #### [address] [address] #### HCV1 #### [place] [address] Urea nitrogen [Mass/Vol] 21 mg/dL High 7-18 [facility] Comment on above: Order Comment: cc re sults to cardiology ([place]) Dr. Hawk Performed By: #### A DIFF, PSA, ANEU, CBC, A1C, GFR, CMP, URIC, LIPID #### [address] [address] #### HCV1 #### [place] [address] HCVon 08-23-2024 Hep C Ab Non-Reactive Normal Non-Reactiv e [facility] Comment on above: Order Comment: cc re sults to cardiology ([place]) Dr. Hawk Performed By: #### A DIFF, PSA, ANEU, CBC, A1C, GFR, CMP, URIC, LIPID #### [address] [address] #### HCV1 #### [place] [address] Hep C Ab Int Normal [facility] Comment on above: Order Comment: cc re sults to cardiology ([place]) Dr. Hawk Result Comment: Nonr eactive: Samples [...] CBC, A1C, GFR, CMP, URIC, LIPID #### [address] [address] #### HCV1 #### [place] [address] LABORATORYOrdered By: SYSTEM SYSTEM on 08-23-2024 Albumin [...] calculated value from Hemoglobin A1C and is labor relations representative of the average blood glucose level [...] Non-Reactive (08/23/24 9:40 AM) Normal Non-Reactiv e ADM SS HCV Ab IA Ql Nonreactive: [...] 08-23-2024 Cholesterol [Mass/Vol] 190 mg/dL Normal 0-200 [facility] Comment on above: Order Comment: rosas brown to cardiology ([place]) Dr. Hawk Result Comment: Chol esterol Reference Interval: Less than 200 Desirable 200-239 Borderline high risk 240 and above High risk Performed By: #### A DIFF, PSA, ANEU, CBC, A1C, GFR, CMP, URIC, LIPID #### [address] [address] #### HCV1 #### [address] [address] Cholesterol in HDL [Mass/Vol] 75 mg/dL High 40-60 [facility] Comment on above: Order Comment: rosas brown to cardiology ([place]) Dr. Hawk Performed By: #### A DIFF, PSA, ANEU, CBC, A1C, GFR, CMP, URIC, LIPID #### [address] [address] #### HCV1 #### [address] [address] Cholesterol in LDL [Mass/Vol] 102 mg/dL Normal 0-130 [facility] Comment on above: Order Comment: rosas brown to cardiology ([place]) Dr. Hawk Performed By: #### A DIFF, PSA, ANEU, CBC, A1C, GFR, CMP, URIC, LIPID #### [address] [address] #### HCV1 #### [address] [address] Triglyceride [Mass/Vol] 65 mg/dL Normal 0-150 [facility] Comment on above: Order Comment: cc re sults to cardiology ([place]) Dr. Hawk Result Comment: Trig lyceride Reference Interval: Less than 150 Normal 150-199 Borderline high risk 200-499 High risk 500 or higher Very high risk Performed By: #### A DIFF, PSA, ANEU, CBC, A1C, GFR, CMP, URIC, LIPID #### [address] [address] #### HCV1 #### [place] [address] PSAon 08-23-2024 Prostate Specific Antigen 1.95 ng/mL Normal 0.00-4.00 [facility] Comment on above: Order Comment: cc re sults to urology ([place]) Dr. Osman Performed By: #### A DIFF, PSA, ANEU, CBC, A1C, GFR, CMP, URIC, LIPID #### [address] [address] #### HCV1 #### [place] [address] URICon 08-23-2024 Uric Acid Lvl 6.8 mg/dL Normal 3.5-7.2 [facility] Comment on above: Order Comment: cc sarah sults to cardiology ([place]) Dr. Hawk Performed By: #### A DIFF, PSA, ANEU, CBC, A1C, GFR, CMP, URIC, LIPID #### [address] [address] #### HCV1 #### [place] [address] Emergency Department Summary on 07-02-2024 Emergency Department Summary [facility] Medical Records Department [address] [place] [id number] Emergency Department Summary 07/02/24 MR#: [id number] Acct: [id number] Name: KRYSTYNA PADGETT Rep #: [id number] : 1955 69 From: Behzad Rivera DO PCP: Dr. Manasa Zendejas, DO Status:DEP ER Location: ED HPI History [...] is not a diabetic. No reported fevers. [facility] Medical History Intermittent palpitations Diminished pulses in lower extremity MARIELENA (obstructive sleep apnea) Chest pain Atrial fibrillation Fatigue Lung nodule, solitary Essential hypertension Dyspnea Obesity Bilateral kidney stones Hydronephrosis HLD (hyperlipidemia) PVCs (premature ventricular contractions) Atherosclerotic heart disease of [place] coronary artery without angina pectoris Sinus bradycardia [...] well developed (more content not included)... Normal [facility] Pulmonary Visit Reporton Pulmonary Visit Report [facility] of [place] [address] [place] [address] OFFICE VISIT Date of Service: 06/21/24 MR#: [id number] Acct: [id number] Name: KRYSTYNA PADGETT Rep #: [id number] : 1955 Provider: MIKAYLA Ruiz Age/Sex: 69/M Location[place] [facility] [place] Status: Signed with Addenda ADDENDUM by Aileen Murillo on 06/21/24 at 1230 Office Procedure Documentation entered by Aileen Murillo 06/21/24 12:30: Immunizations Fluad Triv (65y up)(PF) 45 mcg (15 mcg x 3)/0.5 mL IM syringe Performing Provider: Cathy Ruiz [employer] APPLICATION DEVELOPER, MIKAYLA Performing Location: [facility] Administered by: Aileen Murillo on 06/21/24 12:20 Dose Route Admin Location Dispensed Lot Number Expiration Date [facility] Man ufacturer 45 mcg IM Left Deltoid 0.5 mL [id number] 10/26/24 89080-916-24 [employer]. VIS Given Date VIS Provided VIS Publication [...] mcg x 3)/0.5 mL (flu vac 2023 [id number](PF)) 45 mcg IM ONCE 0.5 mL 0RF NS Z23 - Encounter for immunization Plan Details Follow Up: 6 Months ([facility]) HPI 5 m fu Chief Complaint: Test [...] 5 m fu Chief Complaint: F/u MARIELENA Stripe Matcher Required: No DME Vendor: [employer] Accompanied by: Self Is patient in pain?: [...] #90 tabs (more content not included)... Normal [facility] Chest without Contraston Chest without Contrast [facility] Imaging Services [address] [place] [address] Chest without Contrast MR#: [id number] Acct: [id number] Name: KRYSTYNA PADGETT Rep #: [id number] : 1955 M 68 From: Jensen Leung MD PCP: Dr. Manasa Zendejas, DO Status: [facility] Study: Chest without Contrast Date of Exam: 05/22/24 Exam# [id number] Ordering Dr: Cathy Ruiz [employer]PLICATION DEVELOPER [employer] APPLICATION DEVELOPER-C [id number] INDICATION: follow nodule EXAMINATION: CT CHEST WITHOUT [...] CC: MIKAYLA Ruiz; Dr. Manasa Zendejas DO Endoscope Technician: Signed Normal [facility] Echo Complete W/ Contraston 01-31-2024 Echo Complete W/ Contrast [facility] Cardiovascular Services [address] [place] [address] Echo Complete W/ Contrast 01/31/24 0833 MR#: [id number] Acct: [id number] Name: KRYSTYNA PADGETT Rep #: [id number] : 1955 68 From: Donn Hawk MD Attending Dr: Dr. Donn Hawk MD Status: REG CLI Ordering Dr: Donn Hawk MD Date: 01/31/24 Location: [facility] Sex: M C Admitted: Reason For [...] Manasa Zendejas, Date Dictated: 01/31/24832 Date Transcribed: 01/31/24 105 Endoscope Technician: Signed Normal [facility] Stress Reporton 01-31-2024 Stress Report [facility] Cardiovascular Services [address] [place] [address] MR#: [id number] Acct: [id number] Name: KRYSTYNA PADGETT Rep #: [id number] : 1955 68 From: Donn Hawk MD [...] of 64%. This note was generated with citizenmadeation software. It may contain incorrect words, spelling, and punctuation that were not noted in checking the note before signing. 01/31/24 1252 Date Donn Hwak MD CC: Dr. Donn Hawk MD; Dr. Manasa Zendejas DO Date Dictated: 01/31/24 1251 Date Transcribed: 01/31/24 125 Endoscope Technician: MT Signed Normal [facility] Pulmonary Visit Reporton Pulmonary Visit Report [facility] Pulmonary Medicine of 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 Normal [facility] CT THORAX W/O CONTRASTon CT THORAX [...] 08/16/2023 3:06:39 PM Ordering Provider: MANASA Rahman [facility] ([place]) .Auto Diffon 08-14-2023 Basophil, Absolute 0.0 10 3/mcL Normal 0.0-0.2 [facility] ([place]) Comment on above: Performed By: #### U RICCO, LIPID, A1C, ADIFF, CBC, ANEU, CMP, GFR #### [address] [address] Basophils/100 WBC (Bld) 0.3 % Normal 0.0-2.5 [facility] ([place]) Comment on above: Performed By: #### U RICCO, LIPID, A1C, ADIFF, CBC, ANEU, CMP, GFR #### [address] [address] Eosinophil, Absolute 0.0 10 3/mcL Normal 0.0-0.4 [facility] ([place]) Comment on above: Performed By: #### U RICCO, LIPID, A1C, ADIFF, CBC, ANEU, CMP, GFR #### [address] [address] Eosinophils/100 WBC (Bld) 0.4 % Normal 0.0-7.0 [facility] ([place]) Comment on above: Performed By: #### U RICCO, LIPID, A1C, ADIFF, CBC, ANEU, CMP, GFR #### [address] [address] Lymphocyte, Absolute 1.2 10 3/mcL Normal 0.8-3.9 [facility] ([place]) Comment on above: Performed By: #### U RICCO, LIPID, A1C, ADIFF, CBC, ANEU, CMP, GFR #### [address] [address] Lymphocytes/100 WBC (Bld) 10.2 % Normal 10.0-50.0 [facility] ([place] Comment on above: Performed By: #### U RICCO, LIPID, A1C, ADIFF, CBC, ANEU, CMP, GFR #### [address] [address] Monocyte, Absolute 0.6 10 3/mcL Normal 0.2-1.0 [facility] ([place]) Comment on above: Performed By: #### U RICCO, LIPID, A1C, ADIFF, CBC, ANEU, CMP, GFR #### [address] [address] Monocytes/100 WBC (Bld) 5.0 % Normal 1.7-13.0 [facility] ([place]) Comment on above: Performed By: #### U RICCO, LIPID, A1C, ADIFF, CBC, ANEU, CMP, GFR #### [address] [address] Neutrophils/100 WBC (Bld) 84.1 % High 37.0-80.0 [facility] ([place]) Comment on above: Performed By: #### U RICCO, LIPID, A1C, ADIFF, CBC, ANEU, CMP, GFR #### [address] [address] .GFRon 08-14-2023 GFR Non- 85 ml/min/1.73sqm Normal [facility] ([place]) Comment on above: Result Comment: GFR Population [...] A1C, ADIFF, CBC, ANEU, CMP, GFR #### [address] [address] GFR 103 ml/min/1.73sqm Normal [facility] ([place]) Comment on above: Result Comment: GFR Population [...] A1C, ADIFF, CBC, ANEU, CMP, GFR #### [address] [address] .NEUABSon 08-14-2023 Neutrophil, Absolute 9.6 10 3/mcL High 2.9-6.2 [facility] ([place]) Comment on above: Performed By: #### U RICCO, LIPID, A1C, ADIFF, CBC, ANEU, CMP, GFR #### [address] [address] A1Con 08-14-2023 HbA1c (Bld) [Mass fraction] 5.4 % Normal 4.3-6.4 [facility] ([place]) Comment on above: Order Comment: rosas brown to Dr. [facility] Performed By: #### U RICCO, LIPID, A1C, ADIFF, CBC, ANEU, CMP, GFR #### [address] [address] CBCon 08-14-2023 Erythrocyte distribution width (RBC) [Ratio] 13.8 % Normal 11.5-14.5 [facility] ([place]) Comment on above: Order Comment: rosas brown to Dr. [facility] Performed By: #### U RICCO, LIPID, A1C, ADIFF, CBC, ANEU, CMP, GFR #### [place] [address] Hematocrit (Bld) [Volume fraction] 43.9 % Normal 42.0-52.0 [facility] ([place]) Comment on above: Order Comment: rosas brown to Dr. [facility] Performed By: #### U RICCO, LIPID, A1C, ADIFF, CBC, ANEU, CMP, GFR #### [place] [address] Hgb 15.0 G/dL Normal 14.0-18.0 [facility] ([place]) Comment on above: Order Comment: rosas brown to Dr. [facility] Performed By: #### U RICCO, LIPID, A1C, ADIFF, CBC, ANEU, CMP, GFR #### [place] [address] MCH (RBC) [Entitic mass] 30.3 pg Normal 27.0-31.2 [facility] ([place] Comment on above: Order Comment: rosas brown to Dr. [facility] Performed By: #### U RICCO, LIPID, A1C, ADIFF, CBC, ANEU, CMP, GFR #### [place] [address] MCHC 34.1 G/dL Normal 31.8-35.4 [facility] ([place] Comment on above: Order Comment: rosas brown to Dr. [facility] Performed By: #### U RICCO, LIPID, A1C, ADIFF, CBC, ANEU, CMP, GFR #### [place] [address] MCV (RBC) [Entitic vol] 88.9 fL Normal 80.0-94.0 [facility] ([place]) Comment on above: Order Comment: rosas brown to Dr. [facility] Performed By: #### U RICCO, LIPID, A1C, ADIFF, CBC, ANEU, CMP, GFR #### [address] [address] Platelet 199 10 3/mcL Normal 130-400 [facility] ([place]) Comment on above: Order Comment: rosas brown to Dr. [facility] Performed By: #### U RICCO, LIPID, A1C, ADIFF, CBC, ANEU, CMP, GFR #### [address] [address] Platelet mean volume (Bld) [Entitic vol] 9.4 fL Normal 7.4-10.4 [facility] ([place]) Comment on above: Order Comment: rosas brown to Dr. [facility] Performed By: #### U RICCO, LIPID, A1C, ADIFF, CBC, ANEU, CMP, GFR #### [address] [address] RBC 4.94 10 6/mcL Normal 4.04-6.13 [facility] ([place]) Comment on above: Order Comment: rosas brown to Dr. [facility] Performed By: #### U RICCO, LIPID, A1C, ADIFF, CBC, ANEU, CMP, GFR #### [address] [address] WBC 11.4 10 3/mcL High 4.6-10.8 [facility] ([place]) Comment on above: Order Comment: rosas brown to Dr. [facility] Performed By: #### U RICCO, LIPID, A1C, ADIFF, CBC, ANEU, CMP, GFR #### [address] [address] CMPon 08-14-2023 Albumin Level 3.6 G/dL Normal 3.4-4.8 [facility] ([place]) Comment on above: Order Comment: rosas brown to Dr. [facility] Performed By: #### U RICCO, LIPID, A1C, ADIFF, CBC, ANEU, CMP, GFR #### [address] [address] Albumin/Globulin [Mass ratio] 1.0 {ratio} Low 1.1-2.5 [facility] ([place]) Comment on above: Order Comment: rosas brown to Dr. [facility] Performed By: #### U RICCO, LIPID, A1C, ADIFF, CBC, ANEU, CMP, GFR #### [address] [address] ALP [Catalytic activity/Vol] 78 U/L Normal 40-135 [facility] ([place]) Comment on above: Order Comment: rosas brown to Dr. [facility] Performed By: #### U RICCO, LIPID, A1C, ADIFF, CBC, ANEU, CMP, GFR #### [address] [address] ALT [Catalytic activity/Vol] 30 U/L Normal 16-63 [facility] ([place]) Comment on above: Order Comment: rosas brown to Dr. [facility] Performed By: #### U RICCO, LIPID, A1C, ADIFF, CBC, ANEU, CMP, GFR #### [place] [address] AST [Catalytic activity/Vol] 13 U/L Normal 10-40 [facility] ([place]) Comment on above: Order Comment: rosas brown to Dr. [facility] Performed By: #### U RICCO, LIPID, A1C, ADIFF, CBC, ANEU, CMP, GFR #### [address] [address] Bili Total 1.0 mg/dL Normal 0.2-1.0 [facility] ([place]) Comment on above: Order Comment: rosas brown to Dr. [facility] Result Comment: Use of this assay is not recommended for patients undergoing treatment with eltrombopag due to the potential for falsely elevated results. Performed By: #### U RICCO, LIPID, A1C, ADIFF, CBC, ANEU, CMP, GFR #### [address] [address] BUN/Creatinine Ratio 27 ratio Normal 7-27 [facility] ([place]) Comment on above: Order Comment: rosas brown to Dr. [facility] Performed By: #### U RICCO, LIPID, A1C, ADIFF, CBC, ANEU, CMP, GFR #### [address] [address] Calcium [Mass/Vol] 9.7 mg/dL Normal 8.4-10.2 [facility] ([place]) Comment on above: Order Comment: rosas brown to Dr. Kenn [facility] Performed By: #### U RICCO, LIPID, A1C, ADIFF, CBC, ANEU, CMP, GFR #### [address] [address] Chloride [Moles/Vol] 102 mmol/L Normal 98-107 [facility] ([place]) Comment on above: Order Comment: rosas brown to Dr. [facility] Performed By: #### U RICCO, LIPID, A1C, ADIFF, CBC, ANEU, CMP, GFR #### [place] [address] CO2 [Moles/Vol] 33 mmol/L High 23-31 [facility] ([place]) Comment on above: Order Comment: rosas brown to Dr. [facility] Performed By: #### U RICCO, LIPID, A1C, ADIFF, CBC, ANEU, CMP, GFR #### [place] [address] Creatinine [Mass/Vol] 0.89 mg/dL Normal 0.70-1.30 [facility] ([place]) Comment on above: Order Comment: rosas brown to Dr. [facility] Performed By: #### U RICCO, LIPID, A1C, ADIFF, CBC, ANEU, CMP, GFR #### [address] [address] Electrolyte Balance 9.0 mEq/L Normal 4.0-15.0 [facility] ([place]) Comment on above: Order Comment: rosas brown to Dr. [facility] Performed By: #### U RICCO, LIPID, A1C, ADIFF, CBC, ANEU, CMP, GFR #### [place] [address] Globulin 3.5 G/dL Normal [facility] ([place]) Comment on above: Order Comment: rosas brown to Dr. [facility] Performed By: #### U RICCO, LIPID, A1C, ADIFF, CBC, ANEU, CMP, GFR #### [address] [address] Glucose [Mass/Vol] 93 mg/dL Normal 80-115 [facility] ([place]) Comment on above: Order Comment: rosas brown to Dr. [facility] Performed By: #### U RICCO, LIPID, A1C, ADIFF, CBC, ANEU, CMP, GFR #### [address] [address] Potassium [Moles/Vol] 4.1 mmol/L Normal 3.5-5.1 [facility] ([place]) Comment on above: Order Comment: rosas brown to Dr. [facility] Performed By: #### U RICCO, LIPID, A1C, ADIFF, CBC, ANEU, CMP, GFR #### [address] [address] Sodium [Moles/Vol] 144 mmol/L Normal 136-145 [facility] ([place]) Comment on above: Order Comment: rosas brown to Dr. [facility] Performed By: #### U RICCO, LIPID, A1C, ADIFF, CBC, ANEU, CMP, GFR #### [address] [address] Total Protein 7.1 G/dL Normal 6.4-8.2 [facility] ([place]) Comment on above: Order Comment: rosas brown to Dr. [facility] Performed By: #### U RICCO, LIPID, A1C, ADIFF, CBC, ANEU, CMP, GFR #### [address] [address] Urea nitrogen [Mass/Vol] 24 mg/dL High 7-18 [facility] ([place]) Comment on above: Order Comment: rosas brown to Dr. [facility] Performed By: #### U RICCO, LIPID, A1C, ADIFF, CBC, ANEU, CMP, GFR #### [address] [place] [address] LIPIDon 08-14-2023 Cholesterol [Mass/Vol] 189 mg/dL Normal 0-200 [facility] ([place]) Comment on above: Order Comment: rosas brown to Dr. [facility] Result Comment: Chol esterol Reference Interval: Less than 200 Desirable 200-239 Borderline high risk 240 and above High risk Performed By: #### G FR, CRE #### [address] [address] Cholesterol in HDL [Mass/Vol] 74 mg/dL High 40-60 [facility] ([place]) Comment on above: Order Comment: rosas brown to Dr. [facility] Performed By: #### G FR, CRE #### [place] [address] Cholesterol in LDL [Mass/Vol] 106 mg/dL Normal 0-130 [facility] ([place]) Comment on above: Order Comment: rosas brown to Dr. [facility] Performed By: #### G FR, CRE #### [address] [address] Triglyceride [Mass/Vol] 45 mg/dL Normal 0-150 [facility] ([place]) Comment on above: Order Comment: rosas brown to Dr. [facility] Result Comment: Trig lyceride Reference Interval: Less than 150 Normal 150-199 Borderline high risk 200-499 High risk 500 or higher Very high risk Performed By: #### G FR, CRE #### [address] [address] MALBRon 08-14-2023 U Creatinine 69.3 mg/dL Normal 39.0-259.0 [facility] ([place]) Comment on above: Order Comment: rosas brown to Dr. [facility] Performed By: #### M ALBR #### [address] [address] U Microalb 702 mcg/dL Normal [facility] ([place]) Comment on above: Order Comment: rosas brown to Dr. [facility] Performed By: #### M ALBR #### [facility] [address] [place], [place] [address] U Ratio Alb/Cre 10 mcg/mg Normal 0-30 [facility] ([place]) Comment on above: Order Comment: rosas brown to Dr. [facility] Performed By: #### M ALBR #### [facility] [address] [place], [place] [address] URICon 08-14-2023 Uric Acid Lvl 5.4 mg/dL Normal 3.5-7.2 [facility] ([place]) Comment on above: Order Comment: rosas brown to Dr. [facility] Performed By: #### U RICCO, LIPID, A1C, ADIFF, CBC, ANEU, CMP, GFR #### [place] [address] [place], [place] [address] No Panel InformationOrdered By: Rocio Jara on 04-24-2023 Prostate Specific Antigen Total 1.51 ng/mL 0.0-4.0 [facility] Comment on above: This test was perfor med using the TPSA assay method for [employer] system. Values obtained with differentassay methods [...] Date: 02/27/2023 10:13:40 AM Ordering Provider: MANASA ZENDEJAS [facility] ([place]) .GFRon 02-24-2023 GFR 94 ml/min/1.73sqm Normal [facility] ([place]) Comment on above: Result Comment: GFR Population [...] Performed By: #### G , CRE #### [address] [address] GFR Non- 77 ml/min/1.73sqm Normal [facility] ([place]) Comment on above: Result Comment: GFR Population [...] Performed By: #### G FR, CRE #### [place] [address] [address] CREon 02-24-2023 Creatinine [Mass/Vol] 0.97 mg/dL Normal 0.70-1.30 [facility] ([place]) Comment on above: Performed By: #### G , CRE #### [address] [address] LABORATORYOrdered By: SYSTEM SYSTEM on 02-24-2023 Creatinine [...] Invalid Interpretation Code 0.0 - 6.0 % Workflow SS Erythrocyte distribution width (RBC) [Ratio] 14.9 % Invalid Interpretation Code 11.5 - 15.5 % Workflow SS GFR/1.73 sq M.predicted among blacks [...] Invalid Interpretation Code 0.9 - 4.3 10^3/mcL AH Workflow SS Lymphocytes/100 WBC (Bld) 15.6 % Invalid Interpretation Code 20.0 - 40.0 % AH Workflow SS MCH (RBC) [Entitic mass] 30.3 pg Invalid Interpretation Code 27.0 - 33.0 pg AH Workflow SS MCHC 33.8 G/dL Invalid Interpretation Code 32.0 - 36.0 G/dL AH Workflow SS MCV (RBC) [Entitic vol] 89.7 fL Invalid Interpretation Code 81.0 - 100.0 fL AH Workflow SS Monocytes (Bld) [#/Vol] 0.5 103/mcL [...] [Relative time] 1.0 {INR} Invalid Interpretation Code AH Auto Coag SS PT Coag (PPP) [Time] 12.1 s Invalid Interpretation Code 9.0 - 14.8 seconds AH Auto Coag SS Absolute lymphocyte countOrd ered By: Dr. Singh on 10-16-2022 Lymphocytes Auto (Unsp spec) [#/Vol] 0.84 10*3/uL 0.83-4.51 [facility] Basophil percentageOrdered B y: Dr. Singh on 10-16-2022 Basophils/100 WBC (Bld) 0.2 % 0-1 [facility] Chloride [Moles/Vol] 106 mmol/L 98-107 [facility] Eosinophils/100 WBC (Bld) 1.6 % 0-5 [facility] Glucose [Mass/Vol] 117 mg/dL 74-106 [facility] Comment on above: Fasting Glucose resu lt from 100 to 125 mg/dL suggests IMPAIRED HOMEOSTASIS per A.D.A. criteria. Neutrophils (Bld) [#/Vol] 4.2 10*3/uL 2.0-7.7 [facility] Neutrophils/100 WBC (Bld) 74.0 % 47-70 [facility] Potassium [Moles/Vol] 3.5 mmol/L 3.5-5.1 [facility] Sodium [Moles/Vol] 138 mmol/L 136-145 [facility] WBC (Bld) [#/Vol] 5.6 10*3/uL 4.4-11.0 [facility] Basophil percentageOrdered B y: ED PROVIDER on 10-16-2022 Basophil percentage 0-5 SEEN /hpf 0-5 [facility] Bilirubin Test strip Ql (U)O rdered By: ED PROVIDER on 10-16-2022 Bilirubin Ql (U) Negative Negative [facility] Blood erythrocytes count (nu mber/volume)Ordered By: Dr. Singh on 10-16-2022 RBC (Bld) [#/Vol] 4.50 10*6/uL 4.6-6.2 [facility] Blood hemoglobin measurement (mass/volume)Ordered By: Dr. Singh on 10-16-2022 Hemoglobin (Bld) [Mass/Vol] 13.4 g/dL 13.0-16.5 [facility] Blood lymphocytes/100 leukoc ytesOrdered By: Dr. Singh on 10-16-2022 Lymphocytes/100 WBC (Bld) 14.9 % 19-41 [facility] Blood monocytes/100 leukocyt esOrdered By: Dr. Singh on 10-16-2022 Monocytes/100 WBC (Bld) 8.9 % 0-10 [facility] Blood platelet mean volumeOr dered By: Dr. Singh on 10-16-2022 Platelet mean volume (Bld) [Entitic vol] 11.7 fL 6.2-12.0 [facility] Determination of erythrocyte mean corpuscular volume (MCV)Ordered By: Dr. Singh on 10-16-2022 MCV (RBC) [Entitic vol] 92.0 fL 80-94 [facility] Hematocrit Auto (Bld) [Volum e fraction]Ordered By: Dr. Singh on 10-16-2022 Hematocrit (Bld) [Volume fraction] 41.4 % 40-54 [facility] Ketones Test strip Ql (U)Ord ered By: ED PROVIDER on 10-16-2022 Ketones Ql (U) Negative Negative [facility] Laboratory - Chemistry and C hemistry - challengeOrdered By: Dr. Singh on 10-16-2022 CO2 [Moles/Vol] 29.0 mmol/L 21.0-32.0 [facility] Urea nitrogen/Creatinine [Mass ratio] 27.1 mg/mg 10-20 [facility] Laboratory - Hematology and Cell countsOrdered By: Dr. Singh on 10-16-2022 Erythrocyte distribution width (RBC) [Entitic vol] 48.7 fL 35.1-43.9 [facility] Erythrocyte distribution width (RBC) [Ratio] 14.4 % 11.6-14.6 [facility] Immature granulocytes/100 WBC (Bld) 0.400 % 0.0-0.9 [facility] Comment on above: IG% - Immature Granu locytes (promyelocytes, myelocytes and metamyelocytes) > 1% indicates that a LEFT SHIFT is Present. MCH (RBC) [Entitic mass] 29.8 pg 27.0-32.0 [facility] Nucleated RBC/100 WBC (Bld) [Ratio] 0 % 0-5 [facility] MCHC Auto (RBC) [Mass/Vol]Or dered By: Dr. Singh on 10-16-2022 MCHC (RBC) [Mass/Vol] 32.4 g/dL 32-36 [facility] Mucus LM Ql (Urine sed)Order ed By: ED PROVIDER on 10-16-2022 Mucus Ql (Urine sed) 0 SEEN /hpf [facility] Nitrite Test strip Ql (U)Ord ered By: ED PROVIDER on 10-16-2022 Nitrite Ql (U) Negative Negative [facility] No Panel InformationOrdered By: Dr. Singh on 10-16-2022 Estimated Creatinine Clearance Calc 73.68 ml/min [facility] Estimated GFR (MDRD) Amer 110 mL/min >60 [facility] Comment on above: GFR Calc Estimated GFR (MDRD) Non-Af Amer 91 mL/min >60 [facility] Comment on above: Non- GFR Calc Platelets bldOrdered By: Dr. Singh on 10-16-2022 Platelets (Bld) [#/Vol] 163 10*3/uL 150-450 [facility] Protein Test strip Ql (U)Ord ered By: ED PROVIDER on 10-16-2022 Protein Ql (U) 15 mg/dl Negative [facility] Serum or plasma calcium nallely urement (mass/volume)Ordered By: Dr. Singh on 10-16-2022 Calcium [Mass/Vol] 8.6 mg/dL 8.5-10.1 [facility] Serum or plasma creatinine m easurement (mass/volume)Ordered By: Dr. Singh on 10-16-2022 Creatinine [Mass/Vol] 0.89 mg/dL 0.70-1.30 [facility] Comment on above: The validity of the calculated GFR & GFRAA in patients over 70 years has not been determined. Clinical correlation is essential. Serum or plasma urea nitroge n measurement (mass/volume)Ordered By: Dr. Singh on 10-16-2022 Urea nitrogen [Mass/Vol] 24 mg/dL 7-18 [facility] Squamous epithelial cells de tection in urine sediment by light microscopyOrdered By: ED PROVIDER on 10-16-2022 Epithelial cells.squamous LM Ql (Urine sed) 0 SEEN /hpf 0-5 [facility] Thin prep Papanicolaou smear with manual screeningOrdered By: Dr. Singh on 10-16-2022 Thin prep Papanicolaou smear with manual screening 3 5-15 [facility] Urine blood detectionOrdered By: ED PROVIDER on 10-16-2022 RBC Ql (U) 50 /ul Negative [facility] RBC Ql (U) 0 SEEN /hpf 0-5 [facility] Urine clarityOrdered By: ED PROVIDER on 10-16-2022 Clarity (U) Clear Clear [facility] Urine color determinationOrd ered By: ED PROVIDER on 10-16-2022 Color (U) Yellow Yellow [facility] Urine glucose detectionOrder ed By: ED PROVIDER on 10-16-2022 Glucose Ql (U) Normal mg/dl Normal [facility] Urine leukocyte esterase det ection by dipstickOrdered By: ED PROVIDER on 10-16-2022 Leukocyte esterase Test strip Ql (U) 25 /ul Negative [facility] Urine pHOrdered By: ED PROVI TERESA on 10-16-2022 pH (U) 5.0 [pH] 5.0 - 8.0 [facility] Urine sediment bacteria coun t by microscopy (number/high power field)Ordered By: ED PROVIDER on 10-16-2022 Bacteria LM.HPF (Urine sed) [#/Area] 0 /[HPF] None Seen [facility] Urine specific gravity measu rementOrdered By: ED PROVIDER on 10-16-2022 Specific gravity (U) [Rel density] 1.020 1.002-1.030 [facility] Urobilinogen Auto test strip Ql (U)Ordered By: ED PROVIDER on 10-16-2022 Urobilinogen Ql (U) Normal mg/dl Normal [facility] Absolute lymphocyte countOrd ered By: Anna Jones on 09-12-2022 Lymphocytes Auto (Unsp spec) [#/Vol] 1.45 10*3/uL 0.83-4.51 [facility] Basophil percentageOrdered B y: Anna Jones on 09-12-2022 Basophils/100 WBC (Bld) 0.5 % 0-1 [facility] Eosinophils/100 WBC (Bld) 1.1 % 0-5 [facility] Neutrophils (Bld) [#/Vol] 6.0 10*3/uL 2.0-7.7 [facility] Neutrophils/100 WBC (Bld) 72.4 % 47-70 [facility] WBC (Bld) [#/Vol] 8.3 10*3/uL 4.4-11.0 [facility] Blood erythrocytes count (nu mber/volume)Ordered By: Anna Jones on 09-12-2022 RBC (Bld) [#/Vol] 5.00 10*6/uL 4.6-6.2 [facility] Blood hemoglobin measurement (mass/volume)Ordered By: Anna Jones on 09-12-2022 Hemoglobin (Bld) [Mass/Vol] 14.6 g/dL 13.0-16.5 [facility] Blood lymphocytes/100 leukoc ytesOrdered By: Anna Jones on 09-12-2022 Lymphocytes/100 WBC (Bld) 17.5 % 19-41 [facility] Blood monocytes/100 leukocyt esOrdered By: Anna Jones on 09-12-2022 Monocytes/100 WBC (Bld) 8.0 % 0-10 [facility] Blood platelet mean volumeOr dered By: Anna Jones on 09-12-2022 Platelet mean volume (Bld) [Entitic vol] 11.4 fL 6.2-12.0 [facility] Determination of erythrocyte mean corpuscular volume (MCV)Ordered By: Anna Jones on 09-12-2022 MCV (RBC) [Entitic vol] 90.8 fL 80-94 [facility] Hematocrit Auto (Bld) [Volum e fraction]Ordered By: Anna Jones on 09-12-2022 Hematocrit (Bld) [Volume fraction] 45.4 % 40-54 [facility] Laboratory - Chemistry and C hemistry - challengeOrdered By: Anna Jones on 09-12-2022 Free T4 [Mass/Vol] 0.96 ng/dL 0.76-1.46 [facility] Laboratory - Hematology and Cell countsOrdered By: Anna Jones on 09-12-2022 Erythrocyte distribution width (RBC) [Entitic vol] 44.9 fL 35.1-43.9 [facility] Erythrocyte distribution width (RBC) [Ratio] 13.4 % 11.6-14.6 [facility] Immature granulocytes/100 WBC (Bld) 0.500 % 0.0-0.9 [facility] Comment on above: IG% - Immature Granu locytes (promyelocytes, myelocytes and metamyelocytes) > 1% indicates that a LEFT SHIFT is Present. MCH (RBC) [Entitic mass] 29.2 pg 27.0-32.0 [facility] Nucleated RBC/100 WBC (Bld) [Ratio] 0 % 0-5 [facility] MCHC Auto (RBC) [Mass/Vol]Or dered By: Anna Jones on 09-12-2022 MCHC (RBC) [Mass/Vol] 32.2 g/dL 32-36 [facility] No Panel InformationOrdered By: Anna Jones on 09-12-2022 Thyroid Stimulating Hormone (TSH) 1.32 uIU/mL 0.358-3.74 [facility] Platelets bldOrdered By: Gage Jones on 09-12-2022 Platelets (Bld) [#/Vol] 220 10*3/uL 150-450 [facility] Basophil percentageon 2021 Chloride [Moles/Vol] 103 mmol/L 98-107 [facility] Work Phone: Glucose [Mass/Vol] 93 mg/dL 74-106 [facility] Work Phone: Potassium [Moles/Vol] 3.6 mmol/L 3.5-5.1 [facility] Work Phone: Sodium [Moles/Vol] 137 mmol/L 136-145 [facility] Work Phone: Laboratory - Chemistry and C hemistry - challengeon 05-26-2022 CO2 [Moles/Vol] 28.0 mmol/L 21.0-32.0 [facility] Work Phone: Natriuretic peptide B (Bld) [Mass/Vol] 14.0 pg/mL 0-100 [facility] Work Phone: Urea nitrogen/Creatinine [Mass ratio] 25.0 mg/mg 10-20 [facility] Work Phone: No Panel Informationon 05-26 Estimated GFR (MDRD) Amer 132 mL/min >60 [facility] Work Phone: Comment on above: GFR Calc Estimated GFR (MDRD) Non-Af Amer 109 mL/min >60 [facility] Work Phone: Comment on above: Non- GFR Calc Serum or plasma calcium nallely urement (mass/volume)on 05-26-2022 Calcium [Mass/Vol] 9.5 mg/dL 8.5-10.1 [facility] Work Phone: [phone] Serum or plasma creatinine m easurement (mass/volume)on 05-26-2022 Creatinine [Mass/Vol] 0.76 mg/dL 0.70-1.30 [facility] Work Phone: Comment on above: The validity of the calculated GFR & GFRAA in patients over 70 years has not been determined. Clinical correlation is essential. Serum or plasma urea nitroge n measurement (mass/volume)on 05-26-2022 Urea nitrogen [Mass/Vol] 19 mg/dL 7-18 [facility] Work Phone: [phone] Thin prep Papanicolaou smear with manual screeningon 05-26-2022 Thin prep Papanicolaou smear with manual screening 6 5-15 [facility] Work Phone: No Panel Informationon 05-17 Troponin I High Sensitivity 9 pg/mL 3.0-78.0 [facility] Work Phone: Comment on above: Please Note: New [place] t Units and Gender Specific Reference Ranges. For more information see Policy Stat Procedure [place] High Sensitivity Troponin (TNIH) and attachments. Absolute lymphocyte counton 05-16-2022 Lymphocytes Auto (Unsp spec) [#/Vol] 1.23 10*3/uL 0.83-4.51 [facility] Work Phone: Basophil percentageon 2021 Basophil percentage 10-25 SEEN /hpf 0-5 [facility] Work Phone: Basophils/100 WBC (Bld) 0.4 % 0-1 [facility] Work Phone: Chloride [Moles/Vol] 107 mmol/L 98-107 [facility] Work Phone: Eosinophils/100 WBC (Bld) 1.2 % 0-5 [facility] Work Phone: Glucose [Mass/Vol] 104 mg/dL 74-106 [facility] Work Phone: Comment on above: Fasting Glucose resu lt from 100 to 125 mg/dL suggests IMPAIRED HOMEOSTASIS per A.D.A. criteria. Neutrophils (Bld) [#/Vol] 5.6 10*3/uL 2.0-7.7 [facility] Work Phone: Neutrophils/100 WBC (Bld) 73.5 % 47-70 [facility] Work Phone: Potassium [Moles/Vol] 3.4 mmol/L 3.5-5.1 [facility] Work Phone: Sodium [Moles/Vol] 143 mmol/L 136-145 [facility] Work Phone: WBC (Bld) [#/Vol] 7.6 10*3/uL 4.4-11.0 [facility] Work Phone: Bilirubin Test strip Ql (U)o n 05-16-2022 Bilirubin Ql (U) Negative Negative [facility] Work Phone: Blood erythrocytes count (nu mber/volume)on 05-16-2022 RBC (Bld) [#/Vol] 4.14 10*6/uL 4.6-6.2 [facility] Work Phone: Blood hemoglobin measurement (mass/volume)on 05-16-2022 Hemoglobin (Bld) [Mass/Vol] 12.4 g/dL 13.0-16.5 [facility] Work Phone: Blood lymphocytes/100 leukoc yteson 05-16-2022 Lymphocytes/100 WBC (Bld) 16.1 % 19-41 [facility] Work Phone: [phone] Blood monocytes/100 leukocyt eson 05-16-2022 Monocytes/100 WBC (Bld) 8.4 % 0-10 [facility] Work Phone: Blood platelet mean volumeon 05-16-2022 Platelet mean volume (Bld) [Entitic vol] 11.7 fL 6.2-12.0 [facility] Work Phone: [phone] Determination of erythrocyte mean corpuscular volume (MCV)on 05-16-2022 MCV (RBC) [Entitic vol] 90.6 fL 80-94 [facility] Work Phone: Hematocrit Auto (Bld) [Volum e fraction]on 05-16-2022 Hematocrit (Bld) [Volume fraction] 37.5 % 40-54 [facility] Work Phone: Hyaline casts LM.LPF (Urine sed) [#/Area]on 05-16-2022 Hyaline casts (Urine sed) [#/Area] 0 /[LPF] 0-5 [facility] Work Phone: [phone] Ketones Test strip Ql (U)on 05-16-2022 Ketones Ql (U) Negative Negative [facility] Work Phone: [phone] Laboratory - Chemistry and C hemistry - challengeon 05-16-2022 CO2 [Moles/Vol] 31.0 mmol/L 21.0-32.0 [facility] Work Phone: [phone] Magnesium [Mass/Vol] 1.8 mg/dL 1.6-2.6 [facility] Work Phone: [phone] Urea nitrogen/Creatinine [Mass ratio] 36.0 mg/mg 10-20 [facility] Work Phone: Laboratory - Hematology and Cell countson 05-16-2022 Erythrocyte distribution width (RBC) [Entitic vol] 45.4 fL 35.1-43.9 [facility] Work Phone: [phone] Erythrocyte distribution width (RBC) [Ratio] 13.6 % 11.6-14.6 [facility] Work Phone: [phone] Immature granulocytes/100 WBC (Bld) 0.400 % 0.0-0.9 [facility] Work Phone: [phone] Comment on above: IG% - Immature Granu locytes (promyelocytes, myelocytes and metamyelocytes) > 1% indicates that a LEFT SHIFT is Present. MCH (RBC) [Entitic mass] 30.0 pg 27.0-32.0 [facility] Work Phone: [phone] Nucleated RBC/100 WBC (Bld) [Ratio] 0 % 0-5 [facility] Work Phone: [phone] MCHC Auto (RBC) [Mass/Vol]on 05-16-2022 MCHC (RBC) [Mass/Vol] 33.1 g/dL 32-36 [facility] Work Phone: [phone] Mucus LM Ql (Urine sed)on Mucus Ql (Urine sed) 0 SEEN /hpf [facility] Work Phone: [phone] Nitrite Test strip Ql (U)on 05-16-2022 Nitrite Ql (U) Negative Negative [facility] Work Phone: [phone] No Panel Informationon 05-16 D-Dimer Quantitative (PE/DVT) 0.54 FEU/ug/m 0.27-0.49 [facility] Work Phone: [phone] Comment on above: D-Dimer ELEVATED (>0 .49): Additional studies and clinicalassessments are indicated to conclude diagnosis of:Deep Vein Thrombosis (DVT) or Pulmonary Embolism (PE)CRITICAL VALUE VERIFIED. CALLED TO Sheridan MINER RN ER05/16/22 [id number] Haresh Torres.RESULTS READ BACK BY SAME. Estimated Creatinine Clearance Calc 85.20 ml/min [facility] Work Phone: [phone] Estimated GFR (MDRD) Amer 129 mL/min >60 [facility] Work Phone: Comment on above: GFR Calc Estimated GFR (MDRD) Non-Af Amer 106 mL/min >60 [facility] Work Phone: Comment on above: Non- GFR Calc Platelets bldon 05-16-2022 Platelets (Bld) [#/Vol] 217 10*3/uL 150-450 [facility] Work Phone: Protein Test strip Ql (U)on 05-16-2022 Protein Ql (U) Negative Negative [facility] Work Phone: Serum or plasma calcium nallely urement (mass/volume)on 05-16-2022 Calcium [Mass/Vol] 8.4 mg/dL 8.5-10.1 [facility] Work Phone: Serum or plasma creatinine m easurement (mass/volume)on 05-16-2022 Creatinine [Mass/Vol] 0.78 mg/dL 0.70-1.30 [facility] Work Phone: Comment on above: The validity of the calculated GFR & GFRAA in patients over 70 years has not been determined. Clinical correlation is essential. Serum or plasma urea nitroge n measurement (mass/volume)on 05-16-2022 Urea nitrogen [Mass/Vol] 28 mg/dL 7-18 [facility] Work Phone: Squamous epithelial cells de tection in urine sediment by light microscopyon 05-16-2022 Epithelial cells.squamous LM Ql (Urine sed) 0-5 SEEN /hpf 0-5 [facility] Work Phone: Thin prep Papanicolaou smear with manual screeningon 05-16-2022 Thin prep Papanicolaou smear with manual screening 5 5-15 [facility] Work Phone: Urine blood detectionon RBC Ql (U) Negative Negative [facility] Work Phone: RBC Ql (U) 0 SEEN /hpf 0-5 [facility] Work Phone: Urine clarityon 05-16-2022 Clarity (U) Sl. Cloudy Clear [facility] Work Phone: Urine color determinationon 05-16-2022 Color (U) Yellow Yellow [facility] Work Phone: Urine glucose detectionon Glucose Ql (U) Normal mg/dl Normal [facility] Work Phone: Urine leukocyte esterase det ection by dipstickon 05-16-2022 Leukocyte esterase Test strip Ql (U) 500 /ul Negative [facility] Work Phone: Urine pHon 05-16-2022 pH (U) 7.0 [pH] 5.0 - 8.0 [facility] Work Phone: Urine sediment bacteria coun t by microscopy (number/high power field)on 05-16-2022 Bacteria LM.HPF (Urine sed) [#/Area] 1 /[HPF] None Seen [facility] Work Phone: Urine specific gravity measu rementon 05-16-2022 Specific gravity (U) [Rel density] 1.015 1.002-1.030 [facility] Work Phone: Urobilinogen Auto test strip Ql (U)on 05-16-2022 Urobilinogen Ql (U) 4 mg/dl Normal [facility] Work Phone: Culture, urine Bacteria identified Cx Nom (U) Positive [facility] Work Phone: Vital Signs Date Time Vital Sign Value Performing Clinician Facility 01-02-2025 07:37-0400 Body mass index (BMI) [Ratio] 46.1 kg/m2 Dr. Manasa Zendejas DO Work Phone: [facility] 01-02-2025 07:37-0400 Body temperature 97.6 [degF] Dr. Manasa Zendejas DO Work Phone: [facility] 01-02-2025 07:37-0400 Body weight 129.[address] Manasa Zendejas DO Work Phone: [facility] 01-02-2025 07:37-0400 Diastolic blood pressure 70 mm[Hg] Dr. Manasa Zendejas DO Work Phone: [facility] 01-02-2025 07:37-0400 Heart rate 77 /min Dr. Manasa Zendejas DO Work Phone: [facility] 01-02-2025 07:37-0400 Respiratory rate 16 /min Dr. Manasa Zendejas DO Work Phone: [facility] 01-02-2025 07:37-0400 SaO2% (BldA) [Mass fraction] 98 % Dr. Manasa Zendejas DO Work Phone: [facility] 01-02-2025 07:37-0400 Systolic blood pressure 102 mm[Hg] Dr. Manasa Zendejas DO Work Phone: [phone] [place] [address] 12-26-2024 13:29-0400 Body height 167.[address] Manasa Zendejas DO Work Phone: [facility] 12-26-2024 13:29-0400 Body mass index (BMI) [Ratio] 46.7 kg/m2 Dr. Manasa Zendejas DO Work Phone: [facility] 12-26-2024 13:29-0400 Body weight 131.[address] Manasa Zendejas DO Work Phone: [facility] 12-26-2024 13:29-0400 Diastolic blood pressure 69 mm[Hg] Dr. Manasa Zendejas DO Work Phone: [facility] 12-26-2024 13:29-0400 Heart rate 68 /min Dr. Manasa Zendejas DO Work Phone: [facility] 12-26-2024 13:29-0400 Respiratory rate 18 /min Dr. Manasa Zendejas DO Work Phone: [facility] 12-26-2024 13:29-0400 SaO2% (BldA) [Mass fraction] 96 % Dr. Manasa Zendejas DO Work Phone: [facility] 12-26-2024 13:29-0400 Systolic blood pressure 119 mm[Hg] Dr. Manasa Zendejas DO Work Phone: [facility] 12-19-2024 08:24-0400 Body height 167.[address] Manasa Zendejas DO Work Phone: [facility] 12-19-2024 08:24-0400 Body weight 133.[address] Manasa Zendejas DO Work Phone: [facility] 12-19-2024 08:24-0400 Heart rate 77 /min Dr. Manasa Zendejas DO Work Phone: [facility] 12-19-2024 08:24-0400 SaO2% (BldA) [Mass fraction] 98 % Dr. Manasa Zendejas DO Work Phone: [facility] 10-25-2024 07:50-0400 Body height 167.[address] Manasa Zendejas DO Work Phone: [facility] 10-25-2024 07:50-0400 Body mass index (BMI) [Ratio] 47.4 kg/m2 Dr. Manasa Zendejas DO Work Phone: [facility] 10-25-2024 07:50-0400 Body temperature 97.4 [degF] Dr. Manasa Zendejas DO Work Phone: [facility] 10-25-2024 07:50-0400 Body weight 133.[address] Manasa Zendejas DO Work Phone: [facility] 10-25-2024 07:50-0400 Diastolic blood pressure 82 mm[Hg] Dr. Manasa Zendejas DO Work Phone: [facility] 10-25-2024 07:50-0400 Heart rate 60 /min Dr. Manasa Zendejas DO Work Phone: [facility] 10-25-2024 07:50-0400 Respiratory rate 20 /min Dr. Manasa Zendejas DO Work Phone: [facility] 10-25-2024 07:50-0400 SaO2% (BldA) [Mass fraction] 96 % Dr. Manasa Zendejas DO Work Phone: [facility] 10-25-2024 07:50-0400 Systolic blood pressure 126 mm[Hg] Dr. Manasa Zendejas DO Work Phone: [facility] 10-07-2024 08:02-0400 Body height 167.[address] Manasa Zendejas DO Work Phone: [facility] 10-07-2024 08:02-0400 Body mass index (BMI) [Ratio] 47.6 kg/m2 Dr. Manasa Zendejas DO Work Phone: [facility] 10-07-2024 08:02-0400 Body temperature 97.3 [degF] Dr. Manasa Zendejas DO Work Phone: [facility] 10-07-2024 08:02-0400 Body weight 133.[address] Manasa Zendejas DO Work Phone: [facility] 10-07-2024 08:02-0400 Diastolic blood pressure 76 mm[Hg] Dr. Manasa Zendejas DO Work Phone: [facility] 10-07-2024 08:02-0400 Heart rate 59 /min Dr. Manasa Zendejas DO Work Phone: [facility] 10-07-2024 08:02-0400 Respiratory rate 20 /min Dr. Manasa Zendejas DO Work Phone: [facility] 10-07-2024 08:02-0400 SaO2% (BldA) [Mass fraction] 95 % Dr. Manasa Zendejas DO Work Phone: [facility] 10-07-2024 08:02-0400 Systolic blood pressure 113 mm[Hg] Dr. Manasa Zendejas DO Work Phone: [facility] 07-02-2024 09:58-0500 Body mass index (BMI) [Ratio] 46.3 kg/m2 Dr. Manasa Zendejas DO Work Phone: [facility] 07-02-2024 09:58-0500 Body temperature 98.2 [degF] Dr. Manasa Zendejas DO Work Phone: [facility] 07-02-2024 09:58-0500 Body weight 130.[address] Manasa Zendejas DO Work Phone: [facility] 07-02-2024 09:58-0500 Diastolic blood pressure 72 mm[Hg] Dr. Manasa Zendejas DO Work Phone: [facility] 07-02-2024 09:58-0500 Heart rate 82 /min Dr. Manasa Zendejas DO Work Phone: [facility] 07-02-2024 09:58-0500 Respiratory rate 18 /min Dr. Manasa Zendejas DO Work Phone: [phone] [place] [address] 07-02-2024 09:58-0500 SaO2% (BldA) [Mass fraction] 99 % Dr. Manasa Zendejas DO Work Phone: [facility] 07-02-2024 09:58-0500 Systolic blood pressure 135 mm[Hg] Dr. Manasa Zendejas DO Work Phone: [facility] 06-21-2024 07:41-0500 Body mass index (BMI) [Ratio] 46.7 kg/m2 Dr. Manasa Zendejas DO Work Phone: [facility] 06-21-2024 07:41-0500 Body temperature 97.7 [degF] Dr. Manasa Zendejas DO Work Phone: [facility] 06-21-2024 07:41-0500 Body weight 131.[address] Manasa Zendejas DO Work Phone: [facility] 06-21-2024 07:41-0500 Diastolic blood pressure 74 mm[Hg] Dr. Manasa Zendejas DO Work Phone: [facility] 06-21-2024 07:41-0500 Heart rate 75 /min Dr. Manasa Zendejas DO Work Phone: [facility] 06-21-2024 07:41-0500 Respiratory rate 20 /min Dr. Manasa Zendejas DO Work Phone: [facility] 06-21-2024 07:41-0500 SaO2% (BldA) [Mass fraction] 93 % Dr. Manasa Zendejas DO Work Phone: [facility] 06-21-2024 07:41-0500 Systolic blood pressure 111 mm[Hg] Dr. Manasa Zendejas DO Work Phone: [facility] 06-13-2024 09:10-0500 Diastolic Blood Pressure Non-Invasive 95 mm[Hg] RICKEY HUNG MD [facility] 06-13-2024 09:10-0500 Heart rate 58 /min RICKEY HUNG MD [facility] 06-13-2024 09:10-0500 Respiratory rate 16 /min RICKEY HUNG MD [facility] 06-13-2024 09:10-0500 Systolic Blood Pressure Non-Invasive 114 mm[Hg] RICKEY HUNG MD [facility] 06-13-2024 08:58-0500 Diastolic Blood Pressure Non-Invasive 69 mm[Hg] RICKEY HUNG MD [facility] 06-13-2024 08:58-0500 Heart rate 69 /min RICKEY HUNG MD [facility] 06-13-2024 08:58-0500 Respiratory rate 16 /min RICKEY HUNG MD [facility] 06-13-2024 08:58-0500 Systolic Blood Pressure Non-Invasive 128 mm[Hg] RICKEY HUNG MD [facility] 06-13-2024 08:53-0500 Diastolic Blood Pressure Non-Invasive 107 mm[Hg] RICKEY HUNG MD [facility] 06-13-2024 08:53-0500 Heart rate 81 /min RICKEY HUNG MD [facility] 06-13-2024 08:53-0500 Respiratory rate 16 /min RICKEY HUNG MD [facility] 06-13-2024 08:53-0500 Systolic Blood Pressure Non-Invasive 145 mm[Hg] RICKEY HUNG MD [facility] 06-13-2024 08:08-0500 Blood Pressure Cuff Size RICKEY HUNG MD [facility] 06-13-2024 08:08-0500 Blood Pressure Location RICKEY HUNG MD [facility] 06-13-2024 08:08-0500 Blood Pressure Method RICKEY HUNG MD [facility] 06-13-2024 08:08-0500 Body height 152.4 cm RICKEY HUNG MD [facility] 06-13-2024 08:08-0500 Body weight 130.5 kg RICKEY HUNG MD [facility] 06-13-2024 08:08-0500 Body weight 56.19 kg/m2 RICKEY HUNG MD [facility] 06-13-2024 08:08-0500 Heart rate 64 /min RICKEY HUNG MD [facility] 01-30-2024 08:10-0400 Diastolic Blood Pressure Non-Invasive 67 mm[Hg] RICKEY HUNG MD [facility] 01-30-2024 08:10-0400 Heart rate 54 /min RICKEY HUNG MD [facility] 01-30-2024 08:10-0400 Respiratory rate 14 /min RICKEY HUNG MD [facility] 01-30-2024 08:10-0400 Systolic Blood Pressure Non-Invasive 104 mm[Hg] RICKEY HUNG MD [facility] 01-30-2024 08:06-0400 Diastolic Blood Pressure Non-Invasive 65 mm[Hg] RICKEY HUNG MD [facility] 01-30-2024 08:06-0400 Heart rate 54 /min RICKEY HUNG MD [facility] 01-30-2024 08:06-0400 Respiratory rate 14 /min RICKEY HUNG MD [facility] 01-30-2024 08:06-0400 Systolic Blood Pressure Non-Invasive 114 mm[Hg] RICKEY HUNG MD [facility] 01-30-2024 07:59-0400 Diastolic Blood Pressure Non-Invasive 77 mm[Hg] RICKEY HUNG MD [facility] 01-30-2024 07:59-0400 Heart rate 55 /min RICKEY HUNG MD [facility] 01-30-2024 07:59-0400 Respiratory rate 16 /min RICKEY HUNG MD [facility] 01-30-2024 07:59-0400 Systolic Blood Pressure Non-Invasive 150 mm[Hg] RICKEY HUNG MD [facility] 01-30-2024 07:55-0400 Heart rate 59 /min RICKEY HUNG MD [facility] 01-30-2024 07:17-0400 Body height 167 cm RICKEY HUNG MD [facility] 01-30-2024 07:17-0400 Body weight 129 kg RICKEY HUNG MD [facility] 01-30-2024 07:17-0400 Body weight 46.25 kg/m2 RICKEY HUNG MD [facility] 01-30-2024 07:17-0400 Heart rate 56 /min RICKEY HUNG MD [facility] 07-27-2023 10:39-0500 Diastolic blood pressure 71 mm[Hg] MARCOS SOLO [employer]ESS [facility] 07-27-2023 10:39-0500 Heart rate 55 /min MARCOS SOLO [employer]IER [employer] WAITER/WAITRESS [facility] 07-27-2023 10:39-0500 Respiratory rate 12 /min MARCOS SOLO [employer]IER AND WAITER/WAITRESS [facility] 07-27-2023 10:39-0500 Systolic blood pressure 117 mm[Hg] MARCOS SOLO [employer]IER AND WAITER/WAITRESS [facility] 07-27-2023 10:31-0500 Diastolic Blood Pressure Non-Invasive 65 mm[Hg] MARCOS SOLO STOCK SHAPER-CASHIER AND WAITER/WAITRESS [facility] 07-27-2023 10:31-0500 Heart rate 56 /min MARCOS SOLO STOCK SHAPER-CASHIER AND WAITER/WAITRESS [facility] 07-27-2023 10:31-0500 Respiratory rate 12 /min MARCOS SOLO STOCK SHAPER-CASHIER AND WAITER/WAITRESS [facility] 07-27-2023 10:31-0500 Systolic Blood Pressure Non-Invasive 124 mm[Hg] MARCOS SOLO STOCK SHAPER-CASHIER AND WAITER/WAITRESS [facility] 07-27-2023 10:21-0500 Diastolic Blood Pressure Non-Invasive 75 mm[Hg] MARCOS SOLO STOCK SHAPER-CASHIER AND WAITER/WAITRESS [facility] 07-27-2023 10:21-0500 Heart rate 63 /min MARCOS BANDA STOCK SHAPER-CASHIER AND WAITER/WAITRESS [facility] 07-27-2023 10:21-0500 Respiratory rate 18 /min MARCOS BANDA STOCK SHAPER-CASHIER AND WAITER/WAITRESS [facility] 07-27-2023 10:21-0500 Systolic Blood Pressure Non-Invasive 112 mm[Hg] MARCOS BANDA STOCK SHAPER-CASHIER AND WAITER/WAITRESS [facility] 07-27-2023 10:16-0500 Diastolic Blood Pressure Non-Invasive 66 mm[Hg] MARCOS BANDA STOCK SHAPER-CASHIER AND WAITER/WAITRESS [facility] 07-27-2023 10:16-0500 Heart rate 57 /min MARCOS BANDA STOCK SHAPER-CASHIER AND WAITER/WAITRESS [facility] 07-27-2023 10:16-0500 Systolic Blood Pressure Non-Invasive 115 mm[Hg] MARCOS BANDA STOCK SHAPER-CASHIER AND WAITER/WAITRESS [facility] 07-27-2023 09:17-0500 Body height 167.6 cm MARCOS BANDA STOCK SHAPER-CASHIER AND WAITER/WAITRESS [facility] 07-27-2023 09:17-0500 Body weight 122.6 kg MARCOS BANDA STOCK SHAPER-CASHIER AND WAITER/WAITRESS [facility] 07-27-2023 09:17-0500 Body weight 43.65 kg/m2 MARCOS BANDA STOCK SHAPER-CASHIER AND WAITER/WAITRESS [facility] 07-27-2023 09:17-0500 Heart rate 62 /min MARCOS SOLO STOCK SHAPER-CASHIER AND WAITER/WAITRESS [facility] 03-15-2023 09:23-0400 Blood Pressure Cuff Size GOKUL JANG STOCK SHAPER-MANAGER CAR [facility] 03-15-2023 09:23-0400 Blood Pressure Location GOKUL JANG STOCK SHAPER-MANAGER CAR [facility] 03-15-2023 09:23-0400 Blood Pressure Method GOKUL JANG STOCK SHAPER-MANAGER CAR [facility] 03-15-2023 09:23-0400 Diastolic Blood Pressure Non-Invasive 82 1 GOKUL JANG STOCK SHAPER-MANAGER CAR [facility] 03-15-2023 09:23-0400 Heart rate 56 /min GOKUL JANG STOCK SHAPER-MANAGER CAR [facility] 03-15-2023 09:23-0400 Respiratory rate 11 /min GOKUL JANG STOCK SHAPER-MANAGER CAR [facility] 03-15-2023 09:23-0400 Systolic Blood Pressure Non-Invasive 115 1 GOKUL JANG STOCK SHAPER-MANAGER CAR [facility] 03-15-2023 09:18-0400 Diastolic Blood Pressure Non-Invasive 71 1 GOKUL JANG STOCK SHAPER-MANAGER CAR [facility] 03-15-2023 09:18-0400 Heart rate 54 /min GOKUL JANG STOCK SHAPER-MANAGER CAR [facility] 03-15-2023 09:18-0400 Respiratory rate 14 /min GOKUL JANG STOCK SHAPER-MANAGER CAR [facility] 03-15-2023 09:18-0400 Systolic Blood Pressure Non-Invasive 127 1 GOKUL JANG STOCK SHAPER-MANAGER CAR [facility] 03-15-2023 09:16-0400 Blood Pressure Cuff Size GOKUL JANG STOCK SHAPER-MANAGER CAR [facility] 03-15-2023 09:16-0400 Blood Pressure Location GOKUL JANG STOCK SHAPER-MANAGER CAR [facility] 03-15-2023 09:16-0400 Blood Pressure Method GOKUL JANG STOCK SHAPER-MANAGER CAR [facility] 03-15-2023 09:16-0400 Diastolic Blood Pressure Non-Invasive 76 1 GOKUL JANG STOCK SHAPER-MANAGER CAR [facility] 03-15-2023 09:16-0400 Heart rate 57 /min GOKUL JANG STOCK SHAPER-MANAGER CAR [facility] 03-15-2023 09:16-0400 Respiratory rate 17 /min GOKUL JANG STOCK SHAPER-MANAGER CAR [facility] 03-15-2023 09:16-0400 Systolic Blood Pressure Non-Invasive 129 1 GOKUL JANG STOCK SHAPER-MANAGER CAR [facility] 03-15-2023 09:06-0400 Heart rate 62 /min GOKUL JANG STOCK SHAPER-MANAGER CAR [facility] 03-15-2023 08:24-0400 Blood Pressure Location GOKUL JANG STOCK SHAPER-MANAGER CAR [facility] 03-15-2023 08:24-0400 Blood Pressure Method GOKUL JANG STOCK SHAPER-MANAGER CAR [facility] 03-15-2023 08:24-0400 Body height 167.6 cm GOKUL JANG STOCK SHAPER-MANAGER CAR [facility] 03-15-2023 08:24-0400 Body weight 116.8 kg GOKUL JANG STOCK SHAPER-MANAGER CAR [facility] 03-15-2023 08:24-0400 Body weight 41.58 kg/m2 GOKUL JANG STOCK SHAPER-MANAGER CAR [facility] 02-09-2023 09:55-0400 Body height 167.[address] Manasa Zendejas Work Phone: [facility] 02-09-2023 09:55-0400 Body mass index (BMI) [Ratio] 41.9 kg/m2 Dr. Manasa Zendejas Work Phone: [facility] 02-09-2023 09:55-0400 Body weight 117.[address] Manasa Zendejas Work Phone: [facility] 02-09-2023 09:55-0400 Diastolic blood pressure 77 mm[Hg] Dr. Manasa Zendejas Work Phone: [facility] 02-09-2023 09:55-0400 Heart rate 56 /min Dr. Manasa Zendejas Work Phone: [facility] 02-09-2023 09:55-0400 Respiratory rate 18 /min Dr. Manasa Zendejas Work Phone: [facility] 02-09-2023 09:55-0400 Systolic blood pressure 116 mm[Hg] Dr. Manasa Zendejas Work Phone: [facility] 11-11-2022 09:18-0400 Diastolic Blood Pressure Non-Invasive 66 1 HERVE OLIVAREZ MD [facility] 11-11-2022 09:18-0400 Heart rate 56 /min HERVE OLIVAREZ MD [facility] 11-11-2022 09:18-0400 Respiratory rate 18 /min HERVE OLIVAREZ MD [facility] 11-11-2022 09:18-0400 Systolic Blood Pressure Non-Invasive 112 1 HERVE OLIVAREZ MD [facility] 11-11-2022 03:30-0400 Body temperature 98.24 [degF] HERVE OLIVAREZ MD [facility] 11-11-2022 03:30-0400 Diastolic Blood Pressure Non-Invasive 74 1 HERVE OLIVAREZ MD [address] [place] [id number] 11-11-2022 03:30-0400 Heart rate 54 /min HERVE OLIVAREZ MD [address] [place] [address] 11-11-2022 03:30-0400 Reason For Taking VItal Signs HERVE OLIVAREZ MD [address] [place] [address] 11-11-2022 03:30-0400 Respiratory rate 16 /min HERVE OLIVAREZ MD [address] [place] [address] 11-11-2022 03:30-0400 Systolic Blood Pressure Non-Invasive 111 1 HERVE OLIVAREZ MD [address] [place] [address] 11-11-2022 02:16-0400 Heart rate 66 /min HERVE OLIVAREZ MD [address] [place] [address] 11-11-2022 00:09-0400 Heart rate 60 /min HERVE OLIVAREZ MD [address] [place] [address] 11-10-2022 21:59-0400 Heart rate 61 /min HERVE OLIVAREZ MD [address] [place] [address] 11-10-2022 19:47-0400 Body temperature 99.14 [degF] HERVE OLIVAREZ MD [address] [place] [address] 11-10-2022 19:47-0400 Diastolic Blood Pressure Non-Invasive 67 1 HERVE OLIVAREZ MD [address] [place] [address] 11-10-2022 19:47-0400 Respiratory rate 18 /min HERVE OLIVAREZ MD [address] [place] [address] 11-10-2022 19:47-0400 Systolic Blood Pressure Non-Invasive 90 1 HERVE OLIVAREZ MD [address] [place] [address] 11-10-2022 18:13-0400 Heart rate 68 /min HERVE OLIVAREZ MD [address] [place] [address] 11-10-2022 11:10-0400 Body temperature 97.16 [degF] HERVE OLIVAREZ MD [address] [place] [address] 11-10-2022 11:05-0400 Respiratory Rate - Anes 40 br/min HERVE OLIVAREZ MD [address] [place] [address] 11-10-2022 11:00-0400 Respiratory Rate - Anes 26 br/min HERVE OLIVAREZ MD [address] [place] [address] 11-10-2022 10:55-0400 Respiratory Rate - Anes 13 br/min HERVE OLIVAREZ MD [address] [place] [address] 11-10-2022 10:45-0400 Body temperature 95.4 [degF] HERVE OLIVAREZ MD [address] [place] [address] 11-10-2022 10:40-0400 Body temperature 95.43 [degF] HERVE OLIVAREZ MD [address] [place] [address] 11-10-2022 10:35-0400 Body temperature 95.43 [degF] HERVE OLIVAREZ MD [address] [place] [address] 11-10-2022 06:22-0400 Blood Pressure Cuff Size HERVE OLIVAREZ MD [address] [place] [address] 11-10-2022 06:22-0400 Blood Pressure Location HERVE OLIVAREZ MD [address] [place] [address] 11-10-2022 06:22-0400 Blood Pressure Method HEREV OLIVAREZ MD [address] [place] [address] 11-10-2022 06:22-0400 Body height 167.6 cm HERVE OLIVAREZ MD [address] [place] [address] 11-10-2022 06:22-0400 Body temperature 97.7 [degF] HERVE OLIVAREZ MD [address] [place] [address] 11-10-2022 06:22-0400 Body weight 116.5 kg HERVE OLIVAREZ MD [address] [place] [address] 11-10-2022 06:22-0400 Body weight 41.47 kg/m2 HERVE OLIVAREZ MD [facility] 10-16-2022 08:03-0400 Diastolic blood pressure 52 mm[Hg] Dr. Manasa Zendejas Work Phone: [facility] 10-16-2022 08:03-0400 Heart rate 70 /min Dr. Manasa Zendejas Work Phone: [facility] 10-16-2022 08:03-0400 Respiratory rate 18 /min Dr. Manasa Zendejas Work Phone: [facility] 10-16-2022 08:03-0400 SaO2% (BldA) [Mass fraction] 100 % Dr. Manasa Zendejas Work Phone: [facility] 10-16-2022 08:03-0400 Systolic blood pressure 123 mm[Hg] Dr. Manasa Zendejas Work Phone: [facility] 10-16-2022 06:37-0400 Body height 167.[address] Manasa Zendejas Work Phone: [facility] 10-16-2022 06:37-0400 Body mass index (BMI) [Ratio] 40.8 kg/m2 Dr. Manasa Zendejas Work Phone: [facility] 10-16-2022 06:37-0400 Body temperature 98 [degF] Dr. Manasa Zendejas Work Phone: [facility] 10-16-2022 06:37-0400 Body weight 114.[address] Manasa Zendejas Work Phone: [facility] 09-21-2022 09:25-0400 Diastolic Blood Pressure Non-Invasive 68 1 RICKEY HUNG MD [facility] 09-21-2022 09:25-0400 Heart rate 54 /min RICKEY HUNG MD [facility] 09-21-2022 09:25-0400 Respiratory rate 20 /min RICKEY HUNG MD [facility] 09-21-2022 09:25-0400 Systolic Blood Pressure Non-Invasive 108 1 RICKEY HUNG MD [facility] 09-21-2022 09:08-0400 Diastolic Blood Pressure Non-Invasive 71 1 RICKEY HUNG MD [facility] 09-21-2022 09:08-0400 Heart rate 54 /min RICKEY HUNG MD [facility] 09-21-2022 09:08-0400 Respiratory rate 15 /min RICKEY HUNG MD [facility] 09-21-2022 09:08-0400 Systolic Blood Pressure Non-Invasive 112 1 RICKEY HUNG MD [facility] 09-21-2022 09:04-0400 Diastolic Blood Pressure Non-Invasive 81 1 RICKEY HUNG MD [facility] 09-21-2022 09:04-0400 Heart rate 58 /min RICKEY HUNG MD [facility] 09-21-2022 09:04-0400 Respiratory rate 22 /min RICKEY HUNG MD [facility] 09-21-2022 09:04-0400 Systolic Blood Pressure Non-Invasive 128 1 RICKEY HUNG MD [facility] 09-21-2022 08:30-0400 Blood Pressure Cuff Size RICKEY HUNG MD [facility] 09-21-2022 08:30-0400 Blood Pressure Location RICKEY HUNG MD [facility] 09-21-2022 08:30-0400 Blood Pressure Method RICKEY HUNG MD [facility] 09-21-2022 08:30-0400 Body height 167 cm RICKEY HUNG MD [facility] 09-21-2022 08:30-0400 Heart rate 58 /min RICKEY HUNG MD [facility] 09-12-2022 10:08-0500 Body mass index (BMI) [Ratio] 41.9 kg/m2 Dr. Manasa Zendejas Work Phone: [facility] 09-12-2022 10:08-0500 Body weight 117.[address] Manasa Zendejas Work Phone: [facility] 09-12-2022 10:08-0500 Diastolic blood pressure 79 mm[Hg] Dr. Manasa Zendejas Work Phone: [facility] 09-12-2022 10:08-0500 Heart rate 74 /min Dr. Manasa Zendejas Work Phone: [facility] 09-12-2022 10:08-0500 Respiratory rate 18 /min Dr. Manasa Zendejas Work Phone: [facility] 09-12-2022 10:08-0500 SaO2% (BldA) [Mass fraction] 99 % Dr. Manasa Zendejas Work Phone: [facility] 09-12-2022 10:08-0500 Systolic blood pressure 125 mm[Hg] Dr. Manasa Zendejas Work Phone: [facility] 07-27-2022 13:29-0500 Body mass index (BMI) [Ratio] 42.1 kg/m2 Dr. Manasa Zendejas Work Phone: [facility] 07-27-2022 13:29-0500 Body weight 118.[address] Manasa Zendejas Work Phone: [facility] 07-27-2022 13:29-0500 Diastolic blood pressure 60 mm[Hg] Dr. Manasa Zendejas Work Phone: [facility] 07-27-2022 13:29-0500 Heart rate 48 /min Dr. Manasa Zendejas Work Phone: [facility] 07-27-2022 13:29-0500 Respiratory rate 16 /min Dr. Manasa Zendejas Work Phone: [facility] 07-27-2022 13:29-0500 Systolic blood pressure 100 mm[Hg] Dr. Manasa Zendejas Work Phone: [facility] 05-26-2022 10:28-0500 Body height 167.[address] Manasa Zendejas Work Phone: [facility] Work Phone: 05-26-2022 10:28-0500 Body mass index (BMI) [Ratio] 43.2 kg/m2 Dr. Manasa Zendejas Work Phone: [facility] Work Phone: 05-26-2022 10:28-0500 Body weight 121.[address] Manasa Zendejas Work Phone: [facility] Work Phone: 05-26-2022 10:28-0500 Diastolic blood pressure 66 mm[Hg] Dr. Manasa Zendejas Work Phone: [facility] Work Phone: 05-26-2022 10:28-0500 Heart rate 75 /min Dr. Manasa Zendejas Work Phone: [facility] Work Phone: 05-26-2022 10:28-0500 Respiratory rate 18 /min Dr. Manasa Zendejas Work Phone: [facility] Work Phone: 05-26-2022 10:28-0500 Systolic blood pressure 107 mm[Hg] Dr. Manasa Zendejas Work Phone: [facility] Work Phone: 05-17-2022 01:54-0500 Diastolic blood pressure 62 mm[Hg] Dr. Manasa Zendejas Work Phone: [facility] Work Phone: 05-17-2022 01:54-0500 Heart rate 56 /min Dr. Manasa Zendejas Work Phone: [facility] Work Phone: 05-17-2022 01:54-0500 Respiratory rate 18 /min Dr. Manasa Zendejas Work Phone: [facility] Work Phone: 05-17-2022 01:54-0500 SaO2% (BldA) [Mass fraction] 100 % Dr. Manasa Zendejas Work Phone: [facility] Work Phone: 05-17-2022 01:54-0500 Systolic blood pressure 91 mm[Hg] Dr. Manasa Zendejas Work Phone: [facility] Work Phone: 05-16-2022 22:14-0500 Body height 167.[address] Manasa Zendejas Work Phone: [facility] Work Phone: 05-16-2022 22:14-0500 Body mass index (BMI) [Ratio] 44.1 kg/m2 Dr. Manasa Zendejas Work Phone: [facility] Work Phone: 05-16-2022 22:14-0500 Body temperature 98.4 [degF] Dr. Manasa Zendejas Work Phone: [facility] Work Phone: 05-16-2022 22:14-0500 Body weight [address] Manasa Zendejas Work Phone: [facility] Work Phone: 05-02-2022 10:31-0400 Body mass index (BMI) [Ratio] 43.4 kg/m2 Dr. Manasa Zendejas Work Phone: [facility] Work Phone: 05-02-2022 10:31-0400 Body temperature 97.5 [degF] Dr. Manasa Zendejas Work Phone: [facility] Work Phone: 05-02-2022 10:31-0400 Body weight 122.[address] Manasa Zendejas Work Phone: [facility] Work Phone: 05-02-2022 10:31-0400 Diastolic blood pressure 77 mm[Hg] Dr. Manasa Zendejas Work Phone: [facility] Work Phone: 05-02-2022 10:31-0400 Heart rate 64 /min Dr. Manasa Zendejas Work Phone: [facility] Work Phone: 05-02-2022 10:31-0400 Respiratory rate 20 /min Dr. Manasa Zendejas Work Phone: [facility] Work Phone: 05-02-2022 10:31-0400 SaO2% (BldA) [Mass fraction] 95 % Dr. Manasa Zendejas Work Phone: [facility] Work Phone: 05-02-2022 10:31-0400 Systolic blood pressure 113 mm[Hg] Dr. Manasa Zendejas Work Phone: [facility] Work Phone: 04-06-2022 08:35-0400 Diastolic blood pressure 89 mm[Hg] RICKEY HUNG MD [facility] 04-06-2022 08:35-0400 Heart rate 61 /min RICKEY HUNG MD [facility] 04-06-2022 08:35-0400 Respiratory rate 22 /min RICKEY HUNG MD [facility] 04-06-2022 08:35-0400 Systolic blood pressure 133 mm[Hg] RICKEY HUNG MD [facility] 04-06-2022 08:23-0400 Diastolic Blood Pressure NBP 88 1 RICKEY HUNG MD [facility] 04-06-2022 08:23-0400 Heart rate 63 /min RICKEY HUNG MD [facility] 04-06-2022 08:23-0400 Respiratory rate 15 /min RICKEY HUNG MD [facility] 04-06-2022 08:23-0400 Systolic Blood Pressure NBP 136 1 RICKEY HUNG MD [facility] 04-06-2022 08:10-0400 Diastolic Blood Pressure NBP 82 1 RICKEY HUNG MD [facility] 04-06-2022 08:10-0400 Heart rate 63 /min RICKEY HUNG MD [facility] 04-06-2022 08:10-0400 Respiratory rate 16 /min RICKEY HUNG MD [facility] 04-06-2022 08:10-0400 Systolic Blood Pressure NBP 110 1 RICKEY HUNG MD [facility] 04-06-2022 07:46-0400 Body height 167 cm RICKEY HUNG MD [facility] 04-06-2022 07:46-0400 Body weight 128 kg RICKEY HUNG MD [facility] 04-06-2022 07:46-0400 Body weight 45.9 kg/m2 RICKEY HUNG MD [facility] 04-06-2022 07:46-0400 diastolic 87 mm[Hg] RICKEY HUNG MD [facility] 04-06-2022 07:46-0400 Heart rate 64 /min RICKEY HUNG MD [facility] 04-06-2022 07:46-0400 systolic 163 mm[Hg] RICKEY HUNG MD [facility] 01-27-2022 06:17-0400 Body mass index (BMI) [Ratio] 48.9 kg/m2 Dr. Manasa Zendejas Work Phone: [facility] Work Phone: 01-27-2022 06:17-0400 Body temperature 97.9 [degF] Dr. Manasa Zendejas Work Phone: [facility] Work Phone: 01-27-2022 06:17-0400 Body weight 137.[address] Manasa Zendejas Work Phone: [facility] Work Phone: 01-27-2022 06:17-0400 Diastolic blood pressure 84 mm[Hg] Dr. Manasa Zendejas Work Phone: [facility] Work Phone: 01-27-2022 06:17-0400 Heart rate 69 /min Dr. Manasa Zendejas Work Phone: [facility] Work Phone: 01-27-2022 06:17-0400 Respiratory rate 17 /min Dr. Manasa Zendejas Work Phone: [facility] Work Phone: 01-27-2022 06:17-0400 SaO2% (BldA) [Mass fraction] 98 % Dr. Manasa Zendejas Work Phone: [facility] Work Phone: 01-27-2022 06:17-0400 Systolic blood pressure 126 mm[Hg] Dr. Manasa Zendejas Work Phone: [facility] Work Phone: Encounters Encounter Date Encounter Type Care Provider Facility Start: 01-06-2025 End: 01-06-[address] Manasa Zendejas DO Work Phone: -Laboratory Start: 01-06-2025 End: 01-06-[address] Donn Hawk MD -Laboratory Work Phone: Start: 01-06-2025 End: 01-06-2025 ambulatory Donn Hawk Facility:[facility] Start: 01-02-2025 End: 01-02-2025 Patient encounter procedure Cathy DEGROOT -[facility] Work Phone: Start: 01-02-2025 End: 01-02-[address] Manasa Zendejas DO Work Phone: [facility] Work Phone: Start: 12-26-2024 End: 12-26-[address] Donn Hawk MD -[facility] Work Phone: Start: 12-26-2024 End: 12-26-[address] Manasa Zendejas DO Work Phone: [facility] Work Phone: Start: 12-23-2024 ambulatory Cathy Ruiz NP Fac ility:[facility] Start: 12-23-2024 Non-patient / Non-visit Dr. Cale wolf DO -[facility] Start: 12-19-2024 End: 12-19-[address] Manasa Zendejas DO Work Phone: [facility] Work Phone: Start: 12-19-2024 End: 12-19-2024 Patient encounter procedure Cathy DEGROOT -Pulmonary Services/Neurology Work Phone: Start: 12-19-2024 End: 12-19-2024 ambulatory Cathy Ruiz NP Facility:[facility] Start: 12-17-2024 End: 12-17-2024 ambulatory RICKEY HUNG MD Facility:A Start: 12-17-2024 End: 12-17-2024 Anticoagulant drug monitoring RICKEY HUNG MD [facility] Start: 11-20-2024 End: 11-24-2024 ambulatory MANASA ZENDEJAS DO Facility:[facility] [place] Start: 11-20-2024 ambulatory JESUS NAGI STOCK SHAPER-MANAGER CAR F acility:A Start: 11-07-2024 End: 11-07-2024 ambulatory JESUS NAGI STOCK SHAPER-MANAGER CAR Facility:A Start: 11-07-2024 End: 11-07-2024 Patient encounter procedure JESUS LAZAR STOCK SHAPER-MANAGER CAR [facility] Start: 10-30-2024 End: 10-30-[address] Manasa Zendejas DO Work Phone: [facility] Work Phone: Start: 10-30-2024 End: 10-30-2024 Patient encounter procedure Cathy Ruiz [employer]-C -Pulmonary Services/Neurology Work Phone: Start: 10-30-2024 End: 10-30-2024 ambulatory Cathy Ruiz [employer]EL[employer] Facility:[facility] Start: 10-25-2024 End: 10-25-2024 Patient encounter procedure Cathy Ruiz NP-C -[facility] Work Phone: Start: 10-25-2024 End: 10-25-2024 ambulatory Cathy Ruiz NP Facility:[facility] Start: 10-15-2024 End: 10-15-[address] Manasa Zendejas DO Work Phone: [facility] Work Phone: Start: 10-15-2024 End: 10-15-2024 Patient encounter procedure Cathy Ruiz NP-C -[facility] Start: 10-15-2024 End: 10-15-2024 ambulatory Cathy Ruiz NP Facility:[facility] Start: 10-07-2024 End: 10-07-2024 Patient encounter procedure Cathy Ruiz NP-C -[facility] Work Phone: Start: 10-07-2024 End: 10-07-[address] Manasa Zendejas DO Work Phone: [facility] Work Phone: Start: 10-07-2024 End: 10-07-2024 ambulatory Cathy Ruiz NP Facility:[facility] Start: 09-30-2024 End: 09-30-2024 ambulatory MANASA ZENDEJAS DO Facility:[facility] [place] Start: 09-11-2024 End: 09-11-2024 ambulatory JESUS LAZAR STOCK SHAPER-MANAGER CAR Facility:A Start: 09-11-2024 End: 09-11-2024 Patient encounter procedure JESUS LAZAR STOCK SHAPER-MANAGER CAR [facility] Start: 08-23-2024 End: 08-23-2024 ambulatory MANASA PHILIPKO DO Facility:[facility] [place] Start: 08-23-2024 End: 08-23-2024 Patient encounter procedure MANASA PHILIPKO DO [facility] Start: 07-02-2024 End: 07-02-2024 Emergency department patient visit Dr. Behzad Rivera DO -Emergency Department Work Phone: Start: 06-21-2024 End: 06-21-2024 Patient encounter procedure Cathy Ruiz [employer]- -[facility] Work Phone: Start: 06-21-2024 End: 06-21-2024 ambulatory Cathy Ruiz NP Facility:[facility] Start: 06-13-2024 End: 06-13-2024 ambulatory MANASA PHILIPKO DO Facility:[facility] Start: 06-13-2024 End: 06-13-2024 Anticoagulant drug monitoring RICKEY HUNG MD [facility] Start: 05-22-2024 End: 05-22-2024 ambulatory Cathy Ruiz NP Facility:[facility] Start: 04-29-2024 End: 04-29-2024 ambulatory MANASA PHILIPKO DO Facility:A Start: 04-29-2024 End: 04-29-2024 Patient encounter procedure RICKEY HUNG MD [facility] Start: 02-14-2024 Encounter for genera l adult medical examination without abnormal findings Donn Hawk [facility] Start: 01-31-2024 ambulatory Karen Smith NP Facili ty:[facility] Start: 01-31-2024 ambulatory Manasa Philipko Facility: [facility] Start: 01-30-2024 End: 01-31-2024 ambulatory RICKEY HUNG MD Facility:A Start: 01-30-2024 End: 01-30-2024 Anticoagulant drug monitoring RICKEY HUNG MD [facility] Start: 01-18-2024 End: 01-18-2024 ambulatory Cathy Ruiz NP Facility:[facility] Start: 12-28-[address] Pedro Luis Zendejas DO Work Phone: [facility] Start: 12-26-2023 End: 12-26-2023 ambulatory RICKEY HUNG MD Facility:A Start: 09-25-2023 End: 09-25-2023 ambulatory RICKEY HUNG MD Facility:A Start: 09-25-2023 End: 09-25-2023 Patient encounter procedure RICKEY HUNG MD [facility] Start: 08-14-2023 End: 08-14-2023 ambulatory MANASA CRISTIANA DUBOIS Facility:B Start: 08-14-2023 End: 08-14-2023 Patient encounter procedure MANASA CRISTIANA DUBOIS [facility] Start: 08-14-2023 End: 08-14-2023 ambulatory MANASA PHILIPALONZO DUBOIS Facility:B Start: 07-27-2023 End: 07-27-2023 ambulatory MARCOS A SOLO STOCK SHAPER-CASHIER AND WAITER/WAITRESS Facility:A Start: 07-27-2023 End: 07-27-2023 Anticoagulant drug monitoring MARCOS A SOLO STOCK SHAPER-CASHIER AND WAITER/WAITRESS [facility] Start: 06-30-2023 End: 06-30-2023 ambulatory MARCOS A SOLO STOCK SHAPER-CASHIER AND WAITER/WAITRESS Facility:A Start: 06-30-2023 End: 06-30-2023 Patient encounter procedure MARCOS A SOLO STOCK SHAPER-CASHIER AND WAITER/WAITRESS [facility] Start: 04-24-2023 End: 04-24-[address] Manasa Zendejas Work Phone: [facility] Work Phone: Start: 04-24-2023 End: 04-24-[address] Manasa Zendejas Work Phone: [facility] Work Phone: Start: 03-15-2023 End: 03-15-2023 ambulatory GOKUL JANG STOCK SHAPER-MANAGER CAR Facility:A Start: 03-15-2023 End: 03-15-2023 Anticoagulant drug monitoring GOKUL FIGUEREDOTT STOCK SHAPER-MANAGER CAR [facility] Start: 02-24-2023 End: 02-24-2023 ambulatory [facility] Facility:B Start: 02-24-2023 End: 02-24-2023 Patient encounter procedure MANASA ZENDEJAS DO [facility] Start: 02-14-2023 End: 02-14-2023 ambulatory MANASA ZENDEJAS DO Facility:A Start: 02-14-2023 End: 02-14-2023 Patient encounter procedure GOKUL JANG STOCK SHAPER-MANAGER CAR [facility] Start: 02-10-2023 Non-patient / Non-visit Dr. Opal Zendejas Work Phone: [facility] Work Phone: Start: 02-09-2023 End: 02-09-[address] Manasa Zendejas Work Phone: [facility] Work Phone: Start: 11-10-2022 End: 11-11-2022 Observation HERVE OLIVAREZ MD [facility] Start: 10-28-2022 End: 10-28-2022 Patient encounter procedure MANASA ZENDEJAS DO [facility] Start: 10-16-2022 End: 10-16-2022 Emergency department patient visit Dr. Manasa Zendejas Work Phone: [facility] Start: 09-21-2022 End: 09-21-2022 Anticoagulant drug monitoring RICKEY HUNG MD [facility] Start: 09-12-2022 End: 09-12-[address] Manasa Zendejas Work Phone: [facility] Start: 08-02-2022 End: 08-02-[address] Manasa Zendejas Work Phone: [facility] Start: 07-27-2022 End: 07-27-[address] Manasa Zendejas Work Phone: [facility] Start: 07-26-2022 Non-patient / Non-visit Dr. Opal Zendejas Work Phone: [facility] Start: 07-01-2022 Non-patient / Non-visit Dr. Opal Zendejas Work Phone: [facility] Start: 06-07-2022 Non-patient / Non-visit Dr. Opal Zendejas Work Phone: [facility] Start: 06-07-2022 End: 06-07-[address] Manasa Zendejas Work Phone: [facility] Work Phone: Start: 06-07-2022 End: 06-07-[address] Manasa Zendejas Work Phone: [facility] Start: 06-02-[address] Krish Zendejas Work Phone: [facility] Start: 05-30-2022 Non-patient / Non-visit Dr. Opal Zendejas Work Phone: [facility] Start: 05-30-2022 End: 05-30-[address] Manasa Zendejas Work Phone: [facility] Work Phone: Start: 05-30-2022 End: 05-30-[address] Manasa Zendejas Work Phone: [facility] Start: 05-26-2022 End: 05-26-[address] Manasa Zendejas Work Phone: [facility] Work Phone: Start: 05-26-2022 End: 05-27-2022 Patient encounter procedure RICKEY HUNG MD [facility] Start: 05-16-2022 End: 05-17-2022 Emergency department patient visit Dr. Manasa eZndejas Work Phone: [facility]Emergency Department Start: 05-02-2022 End: 05-02-[address] Manasa Zendejas Work Phone: [facility] Start: 04-06-2022 End: 04-06-2022 Minor Procedure RICKEY HUNG MD [facility] Start: 02-23-2022 End: 02-23-2022 Patient encounter procedure CALEB AJ MD [facility] Start: 02-11-2022 End: 02-11-2022 Patient encounter procedure RICKEY HUNG MD [facility] Start: 02-11-2022 End: 02-11-2022 Patient encounter procedure RICKEY HUNG MD [facility] Start: 01-27-2022 End: 01-27-[address] Man[facility]ende[facility] Start: 01-03-2022 End: 01-03-2022 Patient encounter procedure MANASA PHILIPALONZO [facility] Start: 12-14-2021 End: 12-14-2021 Minor Procedure MANASA ZENDEJAS DO [facility] Procedures Date Procedure Procedure Detail [...] Wit h Imaging SN 1 MARCOS BANDA STOCK SHAPER-CASHIER AND WAITER/WAITRESS Comment on above: auto-populated from documented surgical [...] Wit h Imaging SN 1 GOKUL JANG STOCK SHAPER-MANAGER CAR Comment on above: auto-populated from documented surgical case Start: 03-15-2023 PM Inj Spine L/S Wit h Imaging SN 2 MARCOS BANDA STOCK SHAPER-CASHIER AND WAITER/WAITRESS Comment on above: auto-populated from documented surgical [...] MD Comment on above: IMPRESSION: Normal ambulatory cardiac rn with a predominant underlying rhythm of normal sinus. Start: 12-08-2022 Ablation - action (q ualifier value) GOKUL JANG STOCK SHAPER-MANAGER CAR Comment on above: Impression: Successf ul ablation [...] L/S Wit h Imaging SN 2 GOKUL JANG STOCK SHAPER-MANAGER CAR Comment on above: auto-populated from documented surgical case Start: 09-21-2022 PM Inj Spine L/S Wit h Imaging SN 3 MARCOS BANDA STOCK SHAPER-CASHIER AND WAITER/WAITRESS Comment on above: auto-populated from documented surgical [...] Wit h Imaging SN 3 GOKUL JANG STOCK SHAPER-MANAGER CAR Comment on above: auto-populated from documented surgical case Start: 04-06-2022 PM Inj Spine L/S Wit h Imaging SN 4 MARCOS BANDA STOCK SHAPER-CASHIER AND WAITER/WAITRESS Comment on above: auto-populated from documented surgical [...] of left kn ee (body structure) MANASA Xuanyixia Start: 08-22-2013 Structure of left sh oulder region (body structure) MANASA Xuanyixia Start: 04-09-2009 Hernia of abdominal cavity (disorder) MANASA PHILIPALONZO DO Start: 02-19-2009 Structure of right s houlder region (body structure) MANASA [employer] DO Back structure, excl uding neck (body structure) MANASA [employer] DO Urine culture Dr. Manasa michaud Work Phone: Plan of Treatment Date Care Activity Detail Author Start: 01-23-2025 [facility] Start: 11-28-2024 Walking distance 6 minutes [facility] Start: 07-02-2024 [facility] Start: 10-16-2022 [facility] Start: 09-12-2022 Patient referral [facility] Work Phone: Start: 08-02-2022 Evaluation of diagno stic study results [facility] Start: 05-17-2022 Following clinical p athway protocol [facility] Work Phone: Start: 05-17-2022 [facility] Work Phone: Bacteria identified in Urine by Culture Urine Culture [facility] Work Phone: Basic metabolic 2008 panel with ionized calcium - Serum or Plasma [facility] Patient Education [facility] Work Phone: Patient referral [facility] Work Phone: Positron emission tomography with computed tomography [facility] Work Phone: [facility] Immunizations Immunization Date Immunization Notes Care Provider [facility] 06-21-2024 influenza virus vaccine, unspecified formulation MANASA ZENDEJAS DO [facility] 06-21-2024 Seasonal trivalent influenza vaccine, adjuvanted, preservative free Dr. Manasa Zendejas DO Work Phone: [facility] 04-18-2023 zoster vaccine recombinant RICKEY HUNG MD [facility] 02-09-2023 zoster vaccine recombinant RICKEY HUNG MD [facility] 02-08-2023 Pneumococcal conjuga te PCV20, polysaccharide GRQ228 conjugate, adjuvant, PF; Translations: [Prevnar 20] GOKUL JANG STOCK SHAPER-MANAGER CAR [facility] 08-12-2020 SARS-CoV-2 (COVID-19 ) mRNA-1273 vaccine MANASA ZENDEJAS DO [facility] 07-17-2020 SARS-CoV-2 (COVID-19 ) mRNA-1273 vaccine MANASA ZENDEJAS DO [facility] 05-05-2020 diphtheria and tetan us toxoids, adsorbed for pediatric use MANASA ZENDEJAS DO [facility] 05-05-2020 influenza virus vaccine, unspecified formulation MANASA ZENDEJAS DO [facility] 07-10-2019 diphtheria and tetan us toxoids, adsorbed for pediatric use MANASA ZENDEJAS DO [facility] Comment on above: Result Comment: [facility] [facility] 04-13-2016 influenza, injectabl e, quadrivalent, preservative free Dr. Manasa Zendejas Work Phone: [facility] 04-13-2016 influenza, seasonal, injectable Dr. Manasa Zendejas Work Phone: [facility] 05-15-[address] Manasa Zendejas Work Phone: [facility] 03-10-2012 influenza virus vaccine, unspecified formulation MANASA ZENDEJAS DO [facility] Payers Date Payer Category Payer Self-pay [id number] 2023 Private Health Insurance [id number] 2022 Private Health Insurance [id number] 2016 Private Health Insurance [employer]ET[employer] [id number] 1955 [facility] [id number] 2.16.8 40.1.953986.3.579.2.627 1955 Unknown [id number] 2.16.8 40.1.073865.3.579.2.627 1955 Unknown [id number] 2.16.8 40.1.901241.3.579.2.627 1955 Unknown [id number] 2.16.8 40.1.877885.3.579.2.627 1955 Unknown [id number] 2.16.8 40.1.688257.3.579.2.627 1955 Unknown [id number] 2.16.8 40.1.862936.3.579.2.7 1956 Unknown [id number] 2.16.8 40.1.278125.3.579.2.627 1955 Unknown [id number] 2.16.8 40.1.835561.3.579.2.7 1956 Unknown [id number] 2.16.8 40.1.369359.3.579.2.7 1956 Unknown [id number] 2.16.8 40.1.311264.3.579.2.7 1956 Unknown [id number] 2.16.8 40.1.337475.3.579.2.7 1956 Unknown [id number] 2.16.8 40.1.635870.3.579.2.627 1956 Unknown [id number] 2.16.8 40.1.262915.3.579.2.627 1956 Unknown [id number] 2.16.8 40.1.010587.3.579.2.7 1956 Unknown [id number] 2.16. 840.1.852239.3.579.2.627 1956 Unknown [id number] 2.16.8 40.1.846418.3.579.2.627 1956 Unknown [id number] 2.16.8 40.1.389802.3.579.2.627 1956 Unknown [id number] 2.16.8 40.1.312252.3.579.2.627 1956 Unknown [id number] 2.16.8 40.1.542014.3.579.2.627 1955 Unknown [id number] 2.16.8 40.1.671585.3.579.2.627 Unknown [id number] 2.16.8 40.1.499907.3.579.2.462 Unknown [id number] 2.16.8 40.1.852707.3.579.2.462 Unknown [id number] 2.16.8 40.1.562129.3.579.2.462 Unknown [id number] 2.16.8 40.1.540824.3.579.2.462 Unknown [id number] 2.16.8 40.1.670088.3.579.2.462 Unknown [id number] 2.16.8 40.1.143800.3.579.2.462 Unknown [id number] 2.16.8 40.1.360443.3.579.2.462 Unknown [id number] 2.16.8 40.1.923603.3.579.2.462 Unknown [id number] 2.16.8 40.1.055632.3.579.2.462 Unknown [id number] 2.16.8 40.1.057737.3.579.2.462 Unknown [id number] 2.16.8 40.1.138484.3.579.2.462 Unknown [id number] 2.16.8 40.1.095777.3.579.2.462 Unknown [id number] 2.16.8 40.1.076334.3.579.2.462 Unknown [id number] 2.16.8 40.1.601478.3.579.2.462 Unknown [id number] 2.16.8 40.1.301763.3.579.2.462 Unknown [id number] 2.16.8 40.1.606211.3.579.2.462 Unknown [id number] 2.16.8 40.1.134909.3.579.2.462 Unknown [id number] 2.16.8 40.1.433770.3.579.2.462 Social History Date Type Detail Facility Start: 06-24-2019 End: 01-15-2024 Tobacco smoking status Never smoked tobacco (finding) [facility] Start: 1955 Sex Assigned At Male A [facility] Start: 05-16-2022 End: 02-09-2023 Tobacco smoking status WVIS Unknown if ever smoked [facility] Start: 09-03-2013 Rare [facility] Start: 09-03-2013 None [facility] Start: 09-03-2013 Alone [facility] Start: 09-03-2013 Non-smoker [facility] Start: 11-10-2022 End: 07-02-2024 Tobacco smoking status Ex-smoker (finding) [facility] Sexual Orientation [facility] Start: 01-02-2019 End: 11-04-2024 Sex Male (finding) [facility] Functional Status Date Assessment Result Facility 06-13-2024 Functional Status Independent [facility] 06-13-2024 Functional Status Maintained [facility] 01-30-2024 Functional Status Maintained [facility] 07-27-2023 Functional Status None [facility] 07-27-2023 Functional Status More than 8 hours [facility] 03-15-2023 Functional Status Maintained [facility] 11-11-2022 Functional Status Ambulating in room [facility] 11-11-[address] [facility] 11-11-2022 Functional Status Room located n ear nursing station, Room check performed [facility] 11-10-[address] [facility] 11-10-2022 Functional Status Dinner Percent 100 [facility] 11-10-2022 Functional Status Identification band, Verbal [facility] 11-10-[address] [facility] 11-10-[address] [facility] 09-21-2022 Functional Status Maintained [facility] 04-06-2022 Functional Status Maintained [facility] Mental Status Date Assessment Result Facility 01-30-2024 Mental Status Orientation Oriented x 4 [facility] 07-27-2023 Mental Status Orientation Oriented x 4 [facility] 03-15-2023 Mental Status Orientation Oriented x 4 [facility] 11-11-2022 Mental Status Orientation Oriented x 4 [facility] 11-11-2022 Mental Status [facility]-10-[facility] 09-[facility]22 Mental Status Orientation Oriented x 4 [facility] 05-16-2022 Cognitive function Voice/Name [facility] Work Phone: 04-06-2022 Mental Status Oriented x 4 [facility] Clinical Notes 04-23-2021 to 12-26-2024 Note Date & Type Note Facility 12-26-2024 Progress note Note Date/Time December 26, 2024 1:57pm [facility] [place] [address] [address] [place], [place] [address] OFFICE VISIT Date of Service: 12/26/24 MR#: [id number] Acct: [id number] Name: KRYSTYNA PADGETT Rep #: [id number] : 1955 Provider: Dr. 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 Manasa Zendejas, ~ [facility] Work Phone: 1(245) 625-542106-19-2025 Progress [facility] [place], [place] [address] OFFICE VISIT Date of Service: 12/26/24 MR#: [id number] Acct: [id number] Name: KRYSTYNA PADGETT Rep #: [id number] : 1955 Provider: Dr. 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 Manasa Zendejas, DO ~ [facility]06[facility]16[facility] [address] [place] [address] MR#: [id number] Acct: [id number] Name: KRYSTYNA PADGETT Rep #:[id number] : 1955 69 From: Cale Ron DO Referring Dr: Cathy Ruiz ORACLE FINANCIAL APPLICATION DEVELOPER ORACLE FINANCIAL APPLICATION DEVELOPER-C Status: REG CLI Location: PSN Date: Sex: M C PSN 6 Minute Walk Test 6 Minute Walk Test 6 Minute Walk Test: 6 Minute Walk Test PSN:6-Minute Walk Test Start: 12/19/24 08:24 Freq: Status: Active Protocol: RESP.6MINW Document 12/19/24 08:24 [facility] (Rec: 12/19/24 08:30 [facility] [id number]) 6 Minute Walk Test Date Performed 12/19/24 Time Performed 08:00 Height 5 ft 6 in Weight: 294 lb Weight in Pounds 294.[address]: Cathy Ruiz NP Assistive device None used: Pre-test Oxygen Delivery [...] Dictated: 12/23/24 1020 Date Transcribed: 12/23/24 1020 Endoscope Technician: Dr. Cale Ron, Signed [facility]06-10-2025 Hospital Discharge instructions Patient Education 12/17/2024 07:42:22 Epidural Steroid Injection, Care After [place] ([address]) Epidural Steroid Injection, Care After Refer to [...] the bandage (dressing) after 24 hours. Take miei-vmx-bnlsphi and prescription medicines only as told by your health care provider. Keep all follow-up visits as told by your health care provider. This is important. Contact a health care provider if: You have a fever. You continue to have pain and soreness around the injection site, even after taking przi-gnx-xlwkieo pain medicine. You have severe, sudden, or [...] 10/11/2011 Document Revised: 06/08/2018 Document Reviewed: 10/11/2016 [place] Patient Education 2020 [employer]. 12/17/2024 07:42:22 PM Discharge Instructions Lumbar Epidural (CUSTOM) [facility] Discharge Instructions fo Lumbar [...] as needed for 24 48 hours. Contact [facility] to make an appointment to discuss the results of this procedure. The final report will be available to your referring physician within the next 10 days. If you have any unusual problems related to this procedure, please call [phone]. [facility] 06-10-2025 Summary of episode [...] 10:15 AM EDT MIRI OLIVAREZ [facility] Confirmed Wellness Medicare 02/12/2025 08:30 AM EDT MANASA ZENDEJAS DO [facility] Confirmed PM OV 03/17/2025 11:50 AM EDT RICKEY HUNG MD [facility] Confirmed Medications Please ask your [...] the bandage (dressing) after 24 hours. Take vgcq-cyc-fazjyab and prescription medicines only as told by your health care provider. Keep all follow-up visits as told by your health care provider. This is important. Contact a health care provider if: You have a fever. You continue to have pain and soreness around the injection site, even after taking anmt-erk-ovrsbir pain medicine. You have severe, sudden, or [...] 10/11/2011 Document Revised: 06/08/2018 Document Reviewed: 10/11/2016 [place] Patient Education 2020 [employer]. [facility] Discharge Instructions fo Lumbar [...] as needed for 24 48 hours. Contact [facility] to make an appointment to discuss the results of this procedure. The final report will be available to your referring physician within the next 10 days. If you have any unusual problems related to this procedure, please call [phone]. Additional Information VACCINATE! IT SAVES LIVES! Members of the community who have not yet received the COVID-19 vaccine and would like to receive it can visit one of [facility] vaccine clinics. There are many vaccine clinic locations within the [facility]. For locations and available times, please visit [email or web address] It is important to note that some COVID mobile vaccine clinics are held outdoors and may be canceled in rainy or stormy conditions. To learn more about pediatric vaccinations (ages 5-11), we invite you to visit the [employer] [facility] webpage. [email or web address] learn more about the COVID-19 vaccine, we invite you to visit the CDC website for a list of frequently asked questions.https://www.cdc.gov/coronavirus/2019-ncov/vaccines/faq.html [employer] Patient Portal Access Instructions: Stay connected with your healthcare team and access your personal medical information anytime with the [employer] Patient Portal. Please follow the directions below to create your [employer] account: 1.Access the email account you provided upon registration to the hospital/physician office.2.Look for an invitation email from [facility].3.Open the email and access the invitation link: AcceptInvitation to [employer].4.Fill in the required perez to create your account. To access your account, visit [email or web address]. Click the blue button labeled Access Patient [...] who you will allowto register on the [facility] Patient Portal for access to your information. You can also access the [facility] Patient Portal on the [place]. Simply click on Patient Portal and then log into your account. If you would like to receive a full copy of your medical records, please contact the [facility] Medical Records Department by calling [phone], Monday through Monday between 8 a.m. and [...] Call your local pharmacy or go to [email or web address] to find one close to you.3.Make use of household items: Use cat litter or old coffee grounds to dispose medications if other options arenot available. Mix your drugs with these household products, seal them in an airtight container andthrow it into the garbage. Call [facility]: [phone] to be sure your drugs can be [...] Materials Epidural Steroid Injection, Care After Abhilash (95245) PM Discharge Instructions Lumbar Epidural (CUSTOM) Medication Leaflets My discharge plan and instructions have been reviewed and explained to me and I,KRYSTYNA PADGETT understand my current condition and have read and understand these discharge instructions. I have received a written copy of the plan/instructions. If I have questions, I am aware that I should contactmy doctor. Patient/Unishear Operator Signature: Date/Time: Relationship to Patient: Witness Name/Signature: Date/Time: [facility] [id number] History and physical note History and Physical [...] with standing. Patient describes the pain as galk-ojs-hwugwwa. Patient reports that his pain is alleviated with injections as well as rest. Patient reports he has done physical therapy in the past but that it aggravated his pain. Patient does try to do home exercising and stretching as tolerated. Patient has not found any oovw-gju-rdqwvmq medications that have been helpful. Patient does [...] test and then will follow-up with the construction trades contractor. Patient is agreeable to treatment plan. 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 Lumbar radiculopathy Ordered Lumbar Epidural Steroid Injection L2-L3 with Dr. Hung Preprocedure instructions provided and discussed May use heat and ice for comfort as tolerated Encouraged gentle stretching as tolerated Ordered: PM Inj Spine L/S With Imaging 63127(Epidural Injection, Lumbar/Sacral/Caudal w/ Imaging (PM Procedure) 57943), 11/07/24, RICKEY HUNG MD, Lumbar Epidural Steroid Injection L2-3, Local, Lumbar radicuolpathy, lumbar postlaminectomy syndrome, Future Order, PM Office, PM [place] 4. Spondylolisthesis of lumbar region May use heat and ice for comfort as tolerated Encouraged gentle stretching as tolerated Portions of the record may have been created with voice recognition software. 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 11/07/2024 10:04 EDT Digitally Signed by RICKEY HUNG MD on 12/17/2024 07:20 AM [facility] Pain [id number] Evaluation note* Diagnosis Onset Date Resolution Status Admit Date Lung nodule, solitary chronic Mar 2024 8:02am Morbid obesity chronic September 8:02am [facility] Work Phone: 1(428) 722-843803-31-2025 Evaluation note* Diagnosis Onset Date Resolution Status Admit Date Lung nodule, solitary chronic Mar 2024 8:02am Morbid obesity chronic September 8:02am Dyspnea acute October 25 7:34am Lung nodule, solitary chronic Apr 2024 7:34am Morbid obesity chronic October 7:34am MARIELENA (obstructive sleep apnea) chroni c October 25, 2024 7:34am [facility] Work Phone: 1(685) 921-769703-31-2025 Evaluation note* Diagnosis Onset Date Resolution Status Admit Date Lung nodule, solitary chronic Mar 2024 8:02am Morbid obesity chronic September 8:02am Dyspnea acute October 25 7:34am Lung nodule, solitary chronic Apr il 2024 7:34am Morbid obesity chronic October 7:34am [...] apnea) chroni c December 26, 2024 1:20pm [facility] Work Phone: [phone] Evaluation note* Diagnosis Onset Date Resolution Status Admit Date Lung nodule, solitary chronic Mar ch 2024 8:02am Morbid obesity chronic September 8:02am Dyspnea chronic October 25 7:34am Lung nodule, solitary chronic Apr il 2024 7:34am Morbid obesity chronic October 7:34am [...] apnea) chroni c December 26, 2024 1:20pm Dyspnea chronic January 02 12:52pm Morbid obesity chronic January 02, 2025 12:52pm MARIELENA (obstructive sleep apnea) chroni c January 02, 2025 12:52pm [facility] Work Phone: 1(862) 159-127512-13-2024 Evaluation note* Diagnosis Onset Date Resolution Status Admit Date Lung nodule, solitary chronic Dec ember 2023 11:12am Morbid obesity chronic June 092023 11:12am MARIELENA (obstructive sleep apnea) chronic June 21, 024 11:12am Lung nodule, solitary chronic Mar 2024 8:02am Morbid obesity chronic September 8:02am [facility] Work Phone: 1(614) 615-638912-05-2024 Hospital Discharge instructions Patient Education 06/13/2024 08:40:35 [...] the bandage (dressing) after 24 hours. Take hhrb-tzm-pepjugp and prescription medicines only as told by your health care provider. Keep all follow-up visits as told by your health care provider. This is important. Contact a health care provider if: You have a fever. You continue to have pain and soreness around the injection site, even after taking ulbo-odn-fcknlak pain medicine. You have severe, sudden, or [...] 10/11/2011 Document Revised: 06/08/2018 Document Reviewed: 10/11/2016 [employer] Patient Education 2020 [employer]. 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 11/11/24 +/- 4 day(s), Lumbar epidural steroid injection with x-ray, Local, Neurogenic claudication, Left L2-3 with contrast, Hold Eliquis for 4 days for spinal procedure, Future Order, 4, day(s), 3, week(s), In Approximately, PM Office, PM [place]... 2. Lumbar postlaminectomy syndrome Ordered: PM Inj Spine L/S With Imaging 90049(Epidural Injection, Lumbar/Sacral/Caudal w/ Imaging (PM Procedure) 11019), *Est. 05/20/24 +/- 4 day(s), Lumbar epidural steroid injection with x-ray, Local, Neurogenic claudication, Left L2-3 with contrast, Hold Eliquis for 4 days for spinal procedure, Future Order, 4, day(s), 3, week(s), In Approximately, PM Office, PM [place]... 3. Spondylolisthesis of lumbar region Continue lumbar flexion exercises Ordered: PM Inj Spine L/S With Imaging 56202(Epidural Injection, Lumbar/Sacral/Caudal w/ Imaging (PM Procedure) 70940), *Est. 05/20/24 +/- 4 day(s), Lumbar epidural [...] Ordered: PM Inj Spine L/S With Imaging 17774(Epidural Injection, Lumbar/Sacral/Caudal w/ Imaging (PM Procedure) 20115), *Est. 05/20/24 +/- 4 day(s), Lumbar epidural [...] C screening test Nephrolithiasis Neurogenic claudication Old SD (myocardial infarction) MARIELENA treated with BiPAP Osteoarthritis [...] RICKEY HUNG MD on 06/13/2024 08:45 AM [facility] [id number] Summary of episode note Discharge Instructions Thank [...] Contact Information StatusPC OV 08/14/2024 10:[address] [facility] Confirmed CV OV 01/13/2025 10:15 AM EDT [facility] [place] Confirmed Medications Please ask your primary doctor [...] the bandage (dressing) after 24 hours. Take hcoe-trv-koyxdxv and prescription medicines only as told by your health care provider. Keep all follow-up visits as told by your health care provider. This is important. Contact a health care provider if: You have a fever. You continue to have pain and soreness around the injection site, even after taking zdop-qkn-znrfdqy pain medicine. You have severe, sudden, or [...] 10/11/2011 Document Revised: 06/08/2018 Document Reviewed: 10/11/2016 [employer] Patient Education 2020 [employer] Additional Information VACCINATE! IT SAVES LIVES! Members of the community who have not yet received the COVID-19 vaccine and would like to receive it can visit one of [facility] vaccine clinics. There are many vaccine clinic locations within the [facility]. For locations and available times, please visit [email or web address].[place].gov/. It is important to note that some COVID mobile vaccine clinics are held outdoors and may be canceled in rainy or stormy conditions. To learn more about pediatric vaccinations (ages 5-11), we invite you to visit the [facility] webpage. https://www.[facility].org/pages/7543-Snsmk-Irnedzzegiu-Qqodlqnnwp-Kerti-Nyb stions.htmlTo learn more about the COVID-19 vaccine, we invite you to visit the CDC website for a list of frequently asked questions.https://www.cdc.gov/coronavirus/2019-ncov/vaccines/faq.html [facility] Patient Portal Access Instructions: Stay connected with your healthcare team and access your personal medical information anytime with the [facility] Patient Portal. Please follow the directions below to create your [facility] account: 1.Access the email account you provided upon registration to the hospital/physician office.2.Look for an invitation email from [facility].3.Open the email and access the invitation link: AcceptInvitation to [facility].4.Fill in the required perez to create your account. To access your account, visit [email or web address]. Click the blue button labeled Access Patient Portal and then log in with the username and password that you created in the steps above. You will be able to view your test results, lab results, a summary of your visits, upcoming appointments and more. There is also a convenient messaging option where you can send secure messages to your p PeerJvider. In addition, you will have the ability to download any documents or summaries to your computer and/or send the information securely to a physician. Remember that your healthcare information is confidential, so carefully consider who you will allowto register on the [facility] Patient Portal for access to your information. You can also access the [facility] Patient Portal on the [place] [facility] [place]. Simply click on Patient Portal and then log into your account. If you would like to receive a full copy of your medical records, please contact the [facility] Medical Records Department by calling [phone], Monday through Monday between 8 a.m. and [...] Call your local pharmacy or go to [email or web address] to find one close to you.3.Make use of household items: Use cat litter or old coffee grounds to dispose medications if other options arenot available. Mix your drugs with these household products, seal them in an airtight container andthrow it into the garbage. Call [facility]: [phone] to be sure your drugs can be [...] am aware that I should contactmy doctor. Patient/Unishear Operator Signature: Date/Time: Relationship to Patient: Witness Name/Signature: Date/Time: [facility] [id number] Hospital Discharge instructions Patient Education 01/30/2024 07:58:57 Epidural Steroid Injection, Care After Hung (15283) Epidural Steroid Injection, Care After Refer to [...] the bandage (dressing) after 24 hours. Take zsmv-xiy-qauqdfa and prescription medicines only as told by your health care provider. Keep all follow-up visits as told by your health care provider. This is important. Contact a health care provider if: You have a fever. You continue to have pain and soreness around the injection site, even after taking ihvc-frm-rpeeiha pain medicine. You have severe, sudden, or [...] 10/11/2011 Document Revised: 06/08/2018 Document Reviewed: 10/11/2016 [employer] Patient Education 2020 CompareAway. [facility] Summary of episode [...] Medicare 02/09/2024 09:00 AMEDT MANASA ZENDEJAS DO [facility] Confirmed CV OV 01/13/2025 10:15 AM EDT [facility] [place] Confirmed The Following Activity and Diet Have [...] the bandage (dressing) after 24 hours. Take efur-wwi-zkoqmye and prescription medicines only as told by your health care provider. Keep all follow-up visits as told by your health care provider. This is important. Contact a health care provider if: You have a fever. You continue to have pain and soreness around the injection site, even after taking gbkj-gyg-itdulxq pain medicine. You have severe, sudden, or [...] 10/11/2011 Document Revised: 06/08/2018 Document Reviewed: 10/11/2016 [employer] Patient Education 2020 CompareAway. Additional Information VACCINATE! IT SAVES LIVES! Members of the community who have not yet received the COVID-19 vaccine and would like to receive it can visit one of [facility] vaccine clinics. There are many vaccine clinic locations within the [facility]. For locations and available times, please visit [email or web address].[place].gov/. It is important to note that some COVID mobile vaccine clinics are held outdoors and may be canceled in rainy or stormy conditions. To learn more about pediatric vaccinations (ages 5-11), we invite you to visit the [facility] webpage. https://www.[facility].org/pages/8035-Sahbu-Byjluhcpouk-Aydjyapmds-Cnzjs-Bfc stions.htmlTo learn more about the COVID-19 vaccine, we invite you to visit the CDC website for a list of frequently asked questions.https://www.cdc.gov/coronavirus/2019-ncov/vaccines/faq.html [facility] Patient Portal Access Instructions: Stay connected with your healthcare team and access your personal medical information anytime with the [facility] Patient Portal. Please follow the directions below to create your [facility] account: 1.Access the email account you provided upon registration to the hospital/physician office.2.Look for an invitation email from [facility].3.Open the email and access the invitation link: AcceptInvitation to [facility].4.Fill in the required perez to create your account. To access your account, visit [email or web address]. Click the blue button labeled Access Patient [...] who you will allowto register on the [facility] Patient Portal for access to your information. You can also access the [facility] Patient Portal on the [place] [facility] [place]. Simply click on Patient Portal and then log into your account. If you would like to receive a full copy of your medical records, please contact the [facility] Medical Records Department by calling [phone], Monday through Monday between 8 a.m. and [...] Call your local pharmacy or go to http://bit.ly/7F3Pt3a to find one close to you.3.Make use of household items: Use cat litter or old coffee grounds to dispose medications if other options arenot available. Mix your drugs with these household products, seal them in an airtight container andthrow it into the garbage. Call [facility]: [phone] to be sure your drugs can be [...] Materials Epidural Steroid Injection, Care After Hung (97407) Medication Leaflets My discharge plan and instructions have been reviewed and explained to me and I,KRYSTYNA PADGETT understand my current condition and have read and understand these discharge instructions. I have received a written copy of the plan/instructions. If I have questions, I am aware that I should contactmy doctor. 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 Take yiep-xap-uqbsbjn and prescription medicines only as told by your health care provider. Keep all follow-up visits as told by your health care provider. This is important. Contact a health care provider if: You have a fever. You continue to have pain and soreness around the injection site, even after taking hhee-run-vpoheoo pain medicine. You have severe, sudden, or [...] Document Reviewed: 10/11/2016 Elsevier Patient Education 2020 CompareAway. [facility] 01-18-2024 Summary of episode [...] InformationPC OV 08/11/2023 10:[address] [facility] CV OV 01/15/2024 10:30 AM EDT [facility] The Following Activity and Diet Have Been [...] the bandage (dressing) after 24 hours. Take edkj-ish-mdltyoz and prescription medicines only as told by your health care provider. Keep all follow-up visits as told by your health care provider. This is important. Contact a health care provider if: You have a fever. You continue to have pain and soreness around the injection site, even after taking uelv-enh-dnlxohr pain medicine. You have severe, sudden, or [...] 10/11/2011 Document Revised: 06/08/2018 Document Reviewed: 10/11/2016 ElseAkvo Patient Education 2020 CompareAway. Additional Information VACCINATE! IT SAVES LIVES! Members of the community who have not yet received the COVID-19 vaccine and would like to receive it can visit one of [facility] vaccine clinics. There are many vaccine clinic locations within the [facility]. For locations and available times, please visit https://[email or web address].[place].gov/. It is important to note that some COVID mobile vaccine clinics are held outdoors and may be canceled in rainy or stormy conditions. To learn more about pediatric vaccinations (ages 5-11), we invite you to visit the [facility] webpage. https://www.Xobnis.org/pages/7337-Rnnwu-Rkougeaurpc-Yqvvxekgbj-Avybc-Ykw stions.htmlTo learn more about the COVID-19 vaccine, we invite you to visit the CDC website for a list of frequently asked questions.https://www.cdc.gov/coronavirus/2019-ncov/vaccines/faq.html [facility] Patient Portal Access Instructions: Stay connected with your healthcare team and access your personal medical information anytime with the [facility] Patient Portal. Please follow the directions below to create your [facility] account: 1.Access the email account you provided upon registration to the hospital/physician office.2.Look for an invitation email from [facility].3.Open the email and access the invitation link: AcceptInvitation to [facility].4.Fill in the required perez to create your account. To access your account, visit [email or web address]. Click the blue button labeled Access Patient [...] who you will allowto register on the [facility] for access to your information. You can also [facility] the [facility] on the [place] [facility] [place]. Simply click on Patient Portal and then log into your account. If you would like to receive a full copy of your medical records, please contact the [facility] Medical Records Department by calling [phone], Monday through Monday between 8 a.m. and [...] Call your local pharmacy or go to [email or web address] to find one close to you.3.Make use of household items: Use cat litter or old coffee grounds to dispose medications if other options arenot available. Mix your drugs with these household products, seal them in an airtight container andthrow it into the garbage. Call [facility]: [phone] to be sure your drugs can be [...] am aware that I should contactmy doctor. Patient/Unishear Operator Signature: Date/Time: Relationship to Patient: Witness Name/Signature: Date/Time: [facility] [id number] History and physical note History and Physical [...] Hung who is being followed up by [facility] for chronic pain. Today's pain is 7/10. Described as stabbing and yoqd-gke-irjjubs. 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 Nutrition/Health Caffeine intake amount: none., [...] blood thinner request form filled out by [facility] that he is to stop [...] C screening test Nephrolithiasis Neurogenic claudication Old [place] (myocardial infarction) MARIELENA treated with BiPAP Osteoarthritis [...] (Angioedema [1] [1] Specialty Office Visit Note; SOLO, MARCOSMayo Cohn APRN-CASHIER AND WAITER/WAITRESS 06/30/2023 13:32 EST Digitally Signed by RICKEY HUNG MD on 07/27/2023 10:09 AM [facility] [id number] Hospital Discharge instructions Patient Education 03/15/2023 09:20:56 Epidural Steroid Injection, Care After Abhilash (94651) Epidural Steroid Injection, Care After Refer to [...] the bandage (dressing) after 24 hours. Take mram-jah-vveclmi and prescription medicines only as told by your health care provider. Keep all follow-up visits as told by your health care provider. This is important. Contact a health care provider if: You have a fever. You continue to have pain and soreness around the injection site, even after taking dllt-gpx-mmgrexc pain medicine. You have severe, sudden, or [...] 10/11/2011 Document Revised: 06/08/2018 Document Reviewed: 10/11/2016 [employer] Patient Education 2020 CompareAway. [facility] Summary of episode note Discharge Instructions Thank you for allowing [facility] to assist you with your healthcare needs. The following is importantdischarge information regarding your hospital visit. Your Care Team MANASA ZENDEJAS Your Diagnosis Lumbar postlaminectomy syndrome Lumbar stenosis with neurogenic claudication Morbid obesity Anticoagulated by anticoagulation treatment What to do next Scheduled Follow-Up Appointments Appointment Type When With Where Contact InformationPC OV 08/11/2023 10:00 AM EST MANASA ZENDEJAS [facility] CV OV 01/15/2024 10:30 AM EDT [facility] [place] Allergies rosuvastatin (severe myalgias) Betaxolol Hydrochloride (Low [...] the bandage (dressing) after 24 hours. Take ebhh-rpz-bxghagb and prescription medicines only as told by your health care provider. Keep all follow-up visits as told by your health care provider. This is important. Contact a health care provider if: You have a fever. You continue to have pain and soreness around the injection site, even after taking olqs-dyv-zexqigv pain medicine. You have severe, sudden, or [...] 10/11/2011 Document Revised: 06/08/2018 Document Reviewed: 10/11/2016 ElseAkvo Patient Education 2020 [employer] Additional Information VACCINATE! IT SAVES LIVES! Members of the community who have not yet received the COVID-19 vaccine and would like to receive it can visit one of [facility] vaccine clinics. There are many vaccine clinic locations within the [facility]. For locations and available times, please visit [email or web address].gov/. It is important to note that some COVID mobile vaccine clinics are held outdoors and may be canceled in rainy or stormy conditions. To learn more about pediatric vaccinations (ages 5-11), we invite you to visit the [employer] webpage. https://www.Xobnis.org/pages/2857-Csyrb-Vyxpgrxdhtv-Cmeuvebftf-Zfcki-Fzh stions.htmlTo learn more about the COVID-19 vaccine, we invite you to visit the CDC website for a list of frequently asked questions.https://www.cdc.gov/coronavirus/2019-ncov/vaccines/faq.html File[facility] Patient Portal Access Instructions: Stay connected with your healthcare team and access your personal medical information anytime with the Fileblaze Patient Portal. Please follow the directions below to create your Fileblaze account: 1.Access the email account you provided upon registration to the hospital/physician office.2.Look for an invitation email from [facility].3.Open the email and access the invitation link: AcceptInvitation to Fileblaze.4.Fill in the required preez to create your account. To access your account, visit ReserveMyHome/Eure[place] KingOneChart. Click the blue button labeled Access Patient [...] who you will allowto register on the [facility] Patient Portal for access to your information. You can also access the [facility] Patient Portal on the [facility] Anywhere mali. Simply click on Patient Portal and then log into your account. If you would like to receive a full copy of your medical records, please contact the [facility] Medical Records Department by calling [phone], Monday through Monday between 8 a.m. and [...] Call your local pharmacy or go to [email or web address] to find one close to you.3.Make use of household items: Use cat litter or old coffee grounds to dispose medications if other options arenot available. Mix your drugs with these household products, seal them in an airtight container andthrow it into the garbage. Call [facility]: [phone] to be sure your drugs can be [...] Materials Epidural Steroid Injection, Care After Abhilash (40324) Medication Leaflets My discharge plan and instructions have been reviewed and explained to me and I,KRYSTYNA PADGETT understand my current condition and have read and understand these discharge instructions. I have received a written copy of the plan/instructions. If I have questions, I am aware that I should contactmy doctor. Patient/Unishear Operator Signature: Date/Time: Relationship to Patient: Witness Name/Signature: Date/Time: [facility] [id number] History and physical note History and Physical [...] He describes it as an aching and xppi-pdi-broehgn sensation affecting the left lower back radiating [...] Blood Count : No Anastacia Araiza LPN 02/14/2023 7:02 EDT Sleep Review of Systems [...] plantarflexion are intact. MUSCULOSKELETAL: Gait normal . Silver Miner strength equal Strengths 5/5 in upper and 5/5 in lower extremities. Lumbar spine range of motion intact. Good muscle tone to upper and lower extremities. Tenderness when palpating the lower lumbar spine, more to the left. Muscle tension noted throughout without trigger points. 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 Lumbar stenosis with neurogenic claudication Ordered: PM Inj Spine L/S With Imaging 96399 3. Lumbar radiculopathy Ordered: PM Inj Spine L/S With Imaging 90215 4. Anticoagulated by anticoagulation treatment Ordered: PM Inj Spine L/S With Imaging 66472 Problem List/Past Medical History Ongoing Actinic keratoses [...] C screening test Nephrolithiasis Neurogenic claudication Old SD (myocardial infarction) MARIELENA treated with BiPAP Osteoarthritis [...] [1] Specialty Office Visit Note; GOKUL JANG APRN-MANAGER CAR 02/14/2023 07:52 EDT Digitally Signed by RICKEY HUNG MD on 03/15/2023 08:47 AM [facility] [id number] Discharge summary Hospital Course Patient underwent uncomplicated [...] 11:15 AM EDT Where: [address] [facility] [place] [address]- [phone] Follow Up Appointments No qualifying data available. Follow Up Labs/Studies Discharge Labs No Follow-up Labs Discharge Studies No Follow-up Studies Discharge Diet No qualifying data available. Discharge Activity No qualifying data available. Digitally Signed by HERVE OLIVAREZ MD on 11/11/2022 01:52 PM [id number] Hospital Discharge instructions Patient Education 11/11/2022 09:21:51 [...] need to report the following to your agricultural research engineer: ?Any draining or oozing from the site [...] Document Reviewed: 06/27/2014 ExitCare Patient Information 2015 [employer], [employer]. This information is not intended to replace advicegiven to you by your health care provider. Make sure you discuss any questions you have with your health care provider. Follow Up Care 09/20/2022 14:22:03 With:HERVE OLIVAREZ MD Address: [address] [place] [address] [address] [facility] [place] [address]- [phone] When:01/13/2023 11:15:00 [facility] 05-05-2023 Summary of episode note Discharge Instructions Thank you for allowing [facility] to assist you with your healthcare needs. The following is importantdischarge information regarding your hospital visit. Your Care Team MANASA ZENDEJAS DO What to do next Scheduled Follow-Up Appointments Appointment Type When With Where Contact InformationPC OV 11/16/2022 09:30 AM EDT MANASA ZENDEJAS [facility] PET/CT Initial Staging Tumor Skull Base 11/21/2022 07:15 AM EDT Radiology [phone] PM OV 11/25/2022 12:00 PM EDT RICKEY HUNG MD Pain Management CV OV 01/13/2023 11:15 AM EDT [facility] Follow Up Appointments Follow Up with HERVE OLIVAREZ MD When 01/13/2023 11:15 AM EDT Where: [address] [place] [address]- [phone] Allergies rosuvastatin (severe myalgias) Betaxolol Hydrochloride (Low heart rate) CloNIDine HCl (Unknown) lisinopril (Angioedema) Medications Please ask your primary doctor or pharmacist before taking any other medication not listed, including over the counter drugs, herbal medications, vitamins and or supplements as they may interact [facility]. What How Much When Instructions Last Dose New pantoprazole (pantoprazole 40 mg oral enteric coated tablet) 1 tab(s) by mouth Once a day Pickup at [facility][id number] Unchanged allopurinol (allopurinol 100 mg oral tablet) [...] instructions 1 tab(s) Oral BID Pharmacy Information [facility] #[id number]: [address] [place], [place] [id number] [phone] Please take this list to your next [...] need to report the following to your agricultural research engineer: ? Any draining or oozing from the [...] Document Reviewed: 06/27/2014 ExitCare Patient Information 2015 [employer], [employer]. This information is not intended to replace advicegiven to you by your health care provider. Make sure you discuss any questions you have with your health care provider. Additional Information VACCINATE! IT SAVES LIVES! Members of the community who have not yet received the COVID-19 vaccine and would like to receive it can visit one of [facility] vaccine clinics. There are many vaccine clinic locations within the [facility]. For locations and available times, please visit [email or web address].[facility].[place].gov/. It is important to note that some COVID mobile vaccine clinics are held outdoors and may be canceled in rainy or stormy conditions. To learn more about pediatric vaccinations (ages 5-11), we invite you to visit the [employer] Children[facility] webpage. https://www.[facility].org/pages/7780-Hpqbg-Tewadswnmta-Zrauprdeyl-Qzbyw-Aqc stions.htmlTo learn more about the COVID-19 vaccine, we invite you to visit the CDC website for a list of frequently asked questions. https://www.cdc.gov/coronavirus/2019-ncov/vaccines/faq.html Fileblaze Patient Portal Access Instructions: Stay connected with your healthcare team and access your personal medical information anytime with the [facility] Patient Portal.If you would like a full copy of your medical records, please contact the [facility] Medical Records Department, Monday through Monday between 8a.m. and 4:30p.m. Please follow the directions below to access the portal: 1.Access the email account you provided upon registration to the hospital.2.Look for an invitation email from [facility].3.Open the email and access the invitation link: Accept Invitation to Fileblaze4.Fill in the required perez to create your account. Sign into [email or web address] with your username and password that you [...] you will allow to register on the [facility] Patient Portal for access to your information. You can also access the [facility] Patient Portal on the NEON Concierge mali. Simply click on Health Records under RamTiger Fitness and then click on the Eureka King logo. HOW TO SAFELY DISPOSE OF PRESCRIPTION [...] Call your local pharmacy or go to [email or web address] to find one close to you.3.Make use of household items: Use cat litter or old coffee grounds to dispose medications if other options arenot available. Mix your drugs with these household products, seal them in an airtight container andthrow it into the garbage. Call [facility]: [phone] to be sure your drugs can be [...] am aware that I should contactmy doctor. Patient/Unishear Operator Signature: Date/Time: Relationship to Patient: Witness Name/Signature: Date/Time: [facility] [id number] Evaluation + Plan noteExtracted from: Title:History and Physical Author:HERVE OLIVAREZ MD Date:11/10/22 Orders: Ablation RF-CARTO - CV IV Catheter Insertion/Care Prn Adapter Sign Consent Future Appointments Appointment Date:11/16/2022 09:30:00 AM Scheduled Provider:MANASA ZENDEJAS DO [facility] Appointment Type:PC OV Appointment Date:11/21/2022 07:15:00 AM Scheduled Provider: Location:[facility] Appointment Type:PET/CT Initial Staging Tumor Skull Base Appointment Date:11/25/2022 12:00:00 PM Scheduled Provider:RICKEY HUNG MD Location:PM Office Appointment Type:PM OV Appointment Date:01/13/2023 11:15:00 AM Scheduled Provider: Location:[facility] Appointment Type:CV OV Future Scheduled Tests Radiology* PET/CT 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 11/21/22 [facility] 05-04-2023 Anesthesiology Consult note Patient: KRYSTYNA [...] [place] APONTE MD on 11/10/2022 11:38 AM [facility] HospitalFnvubxgu04-46-0354 History and physical note History of Present [...] C screening test Nephrolithiasis Neurogenic claudication Old SD (myocardial infarction) Osteoarthritis Previous back surgery PSA [...] 11/10/2022 Employment/School Status: Employed., 09/20/2022 Home/Environment 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., 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 Nutrition/Health Caffeine intake amount: none., [...] HERVE OLIVAREZ MD on 11/10/2022 11:05 AM [facility] [id number] Anesthesiology Consult note Patient: KRYSTYNA PADGETT Age: [...] Daily, # 90 tab(s), 1 Refill(s), Pharmacy: [facility], 167, cm, 05/19/22 11:15:00 EST, Height allopurinol 100 mg oral tablet: Dose : 100 mg = 1 tab(s), Oral, BID, # 180 tab(s), 1 Refill(s), Pharmacy: [facility], 167, cm, 05/19/22 11:15:00 EST, Height, kg, 05/19/22 11:15:00 EST, Dosing Weight amLODIPine 5 mg oral tablet: Dose : 5 mg = 1 tab(s), Oral, qDay, # 90 tab(s), 1 Refill(s), Pharmacy: [facility], 167, cm, 05/19/22 11:15:00 EST, Height hydrochlorothiazide-spironolactone 25 mg-25 mg oral tablet: Dose = 1 tab(s), Oral, Daily, # 90 tab(s), 1 Refill(s), Pharmacy: [facility], 167, cm, 05/19/22 11:15:00 EST, Height nitroglycerin 0.4 mg sublingual tablet: 0.4 mg Dose = 1 tab(s), Sublingual, q5min, PRN for chest pain, not to exceed 3 doses/15 min--if pain persists, seek medical attention, # 100 tab(s), 0 Refill(s), Pharmacy: [facility], 167, cm, 05/19/22 11:15:00 EST, Height Documented Medications Documented Eliquis 5 mg oral tablet: Dose : 5 mg = 1 tab(s), Oral, BID, 0 Refill(s), 122.25 potassium citrate 15 mEq oral tablet, extended release: See Instructions, 1 tab(s) Oral BID, 0 Refill(s), No qualifying data available Problem list: Medical At low risk for fall / SNOMED CT 2452165355 / Confirmed Aortic atherosclerosis / SNOMED CT 399837305 / Confirmed Afib / SNOMED CT 98818697 / Confirmed BMI 45.0-49.9, adult / SNOMED CT 3705071255 / Confirmed CAD - Coronary artery disease / SNOMED CT 5009471599 / Confirmed Chest pain / SNOMED CT 31408916 / Confirmed DDD (degenerative disc disease), lumbar / SNOMED CT 98566413 / Confirmed Anticoagulated by anticoagulation treatment / SNOMED CT 346168794 / Confirmed Gout / SNOMED CT 980632510 / Confirmed Previous back surgery / SNOMED CT 943985141 / Confirmed HLD - Hyperlipidemia / SNOMED CT 925609748 / Confirmed Hypersomnolence / SNOMED CT 375404341 / Confirmed Hypertension / SNOMED CT 99038101 / Confirmed Immunization due / SNOMED CT 458400893 / Confirmed Nephrolithiasis / SNOMED CT 198422795 / Confirmed Lumbar postlaminectomy syndrome / SNOMED CT 056969811 / Confirmed Lumbar radiculopathy / SNOMED CT 742158332 / Confirmed Spondylolisthesis of lumbar region / SNOMED CT 5293134871 / Confirmed Immunization refused / SNOMED CT 0449447232 / Confirmed Morbid obesity / SNOMED CT 833087240 / Confirmed Actinic keratoses / SNOMED CT 7604395052 / Confirmed PVCs (premature ventricular contractions) / SNOMED CT 5200112277 / Confirmed Neurogenic claudication / SNOMED CT 097125358 / Confirmed Lung nodule / SNOMED CT 7717150424 / Confirmed Severe obstructive sleep apnea / SNOMED CT 690940717 / Confirmed Old SD (myocardial infarction) / SNOMED CT 2391379 / Confirmed Osteoarthritis / SNOMED CT 0886913607 / Confirmed History of bilevel positive airway pressure (BiPAP) therapy / SNOMED CT 4049005443 / Confirmed Encounter for well adult exam with abnormal findings / SNOMED CT 224817941 / Confirmed Screening for prostate cancer / SNOMED CT 971770170 / Confirmed Screen for colon cancer / SNOMED CT 680450088 / Confirmed Depression screen / SNOMED CT 019952322 / Confirmed PSA elevation / SNOMED CT 3987606648 / Confirmed Screening due / SNOMED CT 928048869 / Confirmed Lumbar stenosis with neurogenic claudication / SNOMED CT 62982985 / Confirmed Statin intolerance / SNOMED CT 6552110787 / Confirmed Need for hepatitis C screening test / SNOMED CT 592437780 / Confirmed, Active Problems (37) Actinic keratoses [...] C screening test Nephrolithiasis Neurogenic claudication Old SD (myocardial infarction) Osteoarthritis Previous back surgery PSA [...] 09/21/2022 at 67 Years. Comments: 09/21/2022 9:09 Kerrie Young RN auto-populated from documented surgical case PM Inj Spine L/S With Imaging SN on 04/06/2022 at 66 Years. Comments: 04/06/2022 8:21 Renetta Machuca RN auto-populated from documented surgical case Cardiac catheterisation ([id number]) on 11/08/2015 at 60 Years. Left knee (841475477) on 01/23/2015 at 59 Years. Left shoulder (974790430) on 08/22/2013 at 58 Years. Hernia (154773639) in the month of 04/2009 at 53 Years. Right shoulder (910658128) on 02/19/2009 at 53 Years. Back (054182834). 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 Physical Examination Vital Signs(last 24 hrs) Last Charted Resp Rate 16 br/min (NOVEMBER 10 06:22) OIG464 mmHg (NOVEMBER 10 06:22) DBP75 mmHg (NOVEMBER 10 06:22) BMI41.47 (NOVEMBER 10 06:22) Measurements from flowsheet : Measurements 11/10/2022 6:22 EDT Height 167.6 cm Height in inches 66 inch(es) Admission Weight 116.5 kg Weight Lbs 256.3 lb Weight Method Actual [place] Body Weight 63.76 kg Body Mass Index [...] Documentation reviewed: Current records. Assessment and Plan [place] [employer] of Anesthesiologists (ASA) physical status classification: Class III. Anesthetic Preoperative Plan Premedication: intravenous. Anesthetic technique: General. Induction: intravenously. Maintenance airway: Oral endotracheal tube. Special Monitoring: Arterial line. Postoperative pain management: Per surgeon. Informed consent: signed by patient. Notes: A-Fib. Digitally Signed by CINDY MAHER MD on 11/10/2022 07:50 AM [facility] [id number] Hospital Discharge instructions Patient Education 09/21/2022 08:40:58 [...] the bandage (dressing) after 24 hours. Take lorc-zzi-szrggau and prescription medicines only as told by your health care provider. Keep all follow-up visits as told by your health care provider. This is important. Contact a health care provider if: You have a fever. You continue to have pain and soreness around the injection site, even after taking lhto-qbp-jhztvcq pain medicine. You have severe, sudden, or [...] 10/11/2011 Document Revised: 06/08/2018 Document Reviewed: 10/11/2016 ElseAkvo Patient Education 2020 [employer] [facility] Summary of [...] 11/16/2022 09:30 AM EDT MANASA ZENDEJAS DO [facility] CV OV 12/21/2022 11:45 AM EDT [facility] [place] Allergies rosuvastatin (severe myalgias) Betaxolol Hydrochloride (Low [...] the bandage (dressing) after 24 hours. Take vmkm-qex-vrojxtj and prescription medicines only as told by your health care provider. Keep all follow-up visits as told by your health care provider. This is important. Contact a health care provider if: You have a fever. You continue to have pain and soreness around the injection site, even after taking hkbg-rxh-qwbferf pain medicine. You have severe, sudden, or [...] 10/11/2011 Document Revised: 06/08/2018 Document Reviewed: 10/11/2016 Macaw Patient Education 2020 [employer] Additional Information VACCINATE! IT SAVES LIVES! Members of the community who have not yet received the COVID-19 vaccine and would like to receive it can visit one of [facility] vaccine clinics. There are many vaccine clinic locations within the [facility]. For locations and available times, please visit [email or web address]/. It is important to note that some COVID mobile vaccine clinics are held outdoors and may be canceled in rainy or stormy conditions. To learn more about pediatric vaccinations (ages 5-11), we invite you to visit the [employer] Children[facility] webpage. https://www.[facility]ron[facility]s.org/pages/8934-Tkope-Ivlgbdsfxnr-Owbmrnxjtv-Tqaqq-Kxg stions.htmlTo learn more about the COVID-19 vaccine, we invite you to visit the CDC website for a list of frequently asked questions. https://www.cdc.gov/coronavirus/2019-ncov/vaccines/faq.html [facility] Patient Portal Access Instructions: Stay connected with your healthcare team and access your personal medical information anytime with the [facility] Patient Portal.If you would like a full copy of your medical records, please contact the [facility] Medical Records Department, Monday through Monday between 8a.m. and 4:30p.m. Please follow the directions below to access the portal: 1.Access the email account you provided upon registration to the hospital.2.Look for an invitation email from [facility].3.Open the email and access the invitation link: Accept Invitation to [facility]4.Fill in the required perez to create your account. Sign into [email or web address] with your username and password that you [...] you will allow to register on the [facility] Patient Portal for access to your information. You can also access the [facility] Patient Portal on the [employer] Concierge mali. Simply click on Health Records under [employer]iger [employer]itness and then click on the E[employer] King logo. HOW TO SAFELY DISPOSE OF PRESCRIPTION [...] Call your local pharmacy or go to [email or web address] [email or web address] to find one close to you.3.Make use of household items: Use cat litter or old coffee grounds to dispose medications if other options arenot available. Mix your drugs with these household products, seal them in an airtight container andthrow it into the garbage. Call [facility]: [phone] to be sure your drugs can be [...] and explained to me and ILORIN JAMES L understand my current condition and have read and understand these discharge instructions. I have received a written copy of the plan/instructions. If I have questions, I am aware that I should contactmy doctor. 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 Patient says that he is going to see his fire captain the first week of September again. 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 Diabetes: Mother. Heart disease: Mother and Father. Hypertension: Mother. Stroke: Father. Assessment/Plan 1. Lumbar postlaminectomy syndrome Ordered: Ambulatory Office Communication Order PM Inj Spine L/S With Imaging 06090 2. Lumbar stenosis with neurogenic claudication Very [...] Order PM Inj Spine L/S With Imaging 53808 3. Spondylolisthesis of lumbar region Ordered: Ambulatory Office Communication Order PM Inj Spine L/S With Imaging 60509 4. Morbid obesity Ordered: Ambulatory Office Communication Order PM Inj Spine L/S With Imaging 89775 5. Anticoagulated by anticoagulation treatment New diagnosis of atrial fibrillation has now been on Eliquis for about 3 months Ordered: PM Inj Spine L/S With Imaging 16783 Problem List/Past Medical History Ongoing Actinic keratoses [...] C screening test Nephrolithiasis Neurogenic claudication Old SD (myocardial infarction) Osteoarthritis Previous back surgery PSA [...] RICKEY HUNG MD on 09/21/2022 08:40 AM [facility] [id number] Hospital Discharge instructions Patient Education 04/06/2022 08:20:13 [...] the bandage (dressing) after 24 hours. Take rvfu-jdg-lkzbbud and prescription medicines only as told by your health care provider. Keep all follow-up visits as told by your health care provider. This is important. Contact a health care provider if: You have a fever. You continue to have pain and soreness around the injection site, even after taking nlsi-emo-yxqwbzi pain medicine. You have severe, sudden, or [...] 10/11/2011 Document Revised: 06/08/2018 Document Reviewed: 10/11/2016 [employer] Patient Education 2019 [employer]. [facility] 09-28-2022 Summary of episode [...] the bandage (dressing) after 24 hours. Take obwc-ggz-clrwggg and prescription medicines only as told by your health care provider. Keep all follow-up visits as told by your health care provider. This is important. Contact a health care provider if: You have a fever. You continue to have pain and soreness around the injection site, even after taking gwat-kln-paoklrw pain medicine. You have severe, sudden, or [...] 10/11/2011 Document Revised: 06/08/2018 Document Reviewed: 10/11/2016 [employer] Patient Education 2020 [employer] Additional Information VACCINATE! IT SAVES LIVES! Members of the community who have not yet received the COVID-19 vaccine and would like to receive it can visit one of [facility] vaccine clinics. There are many vaccine clinic locations within the [facility]. For locations and available times, please visit [email or web address] It is important to note that some COVID mobile vaccine clinics are held outdoors and may be canceled in rainy or stormy conditions. To learn more about pediatric vaccinations (ages 5-11), we invite you to visit the [employer] [facility] webpage. [email or web address]://[email or web address]/[email or web address]-[email or web address] stions.htmlTo learn more about the COVID-19 vaccine, we invite you to visit the [employer] website for a list of frequently asked questions. [email or web address]-[email or web address] _[email or web address]-Questions.pdf [email or web address] Patient Portal Access Instructions: Stay connected with your healthcare team and access your personal medical information anytime with the [email or web address] Patient Portal.If you would like a full copy of your medical records, please contact the [facility] Medical Records Department, Monday through Monday between 8a.m. and 4:30p.m. Please follow the directions below to access the portal: 1.Access the email account you provided upon registration to the [facility].2.Look for an invitation email from [facility].3.Open the email and access the invitation link: Accept Invitation to [email or web address].Fill in the required perez to create your account. Sign into [email or web address] with your username and password that you [...] you will allow to register on the [employer] Patient Portal for access to your information. You can also access the [employer] Patient Portal on the [employer] mali. Simply click on Health Records under [employer] and then click on the [employer] logo. HOW TO SAFELY DISPOSE OF PRESCRIPTION [...] Call your local pharmacy or go to [email or web address] to find one close to you.3.Make use of household items: Use cat litter or old coffee grounds to dispose medications if other options arenot available. Mix your drugs with these household products, seal them in an airtight container andthrow it into the garbage. Call [facility]: [phone] to be sure your drugs can be [...] am aware that I should contactmy doctor. Patient/Unishear Operator Signature: Date/Time: Relationship to Patient: Witness Name/Signature: Date/Time: [facility] [id number] History and physical note Date of Service [...] L3-4 done about 20 years ago in [place]. Says he did well for several years [...] take a baby aspirin is followed by [place] cardiology but says he has not had [...] or heat. Most recent MRI was at [facility] in December. Kirit Garibay [facility] 02/11/2022 8:39 EDT General Review of Systems Grid Fever : No Weight Gain : No Weight Loss : No Kirit Garibay [facility] 02/11/2022 8:39 EDT Head and Neck Review of Systems Grid Blurred Vision : No Difficulty swallowing : No Hearing Loss : No Hoarseness : No Loss of Vision : No Sore Throat : No Kirit Garibay [facility] 02/11/2022 8:39 EDT Respiratory/Lungs Review of Systems Grid Coughing : No Shortness of Breath : Yes Kirit Garibay [facility] 02/11/2022 8:39 EDT Skeletal Review of Systems Grid Joints Swelling/Stiffness : Yes Pain in Joint(s) : Yes Kirit Garibay [facility] 02/11/2022 8:39 EDT Heart/Vascular Review of Systems Grid Chest pain/tightness : No Irregular Heartbeat : Yes Rapid Heart Beat : No Kirit Garibay [facility] 02/11/2022 8:39 EDT Neuro Review of Systems [...] Trouble with speech : No Kirit Garibay [facility] 02/11/2022 8:39 EDT Heart/Vascular ROS Comments : hx of heart attack in 2012 Kirit Garibay [facility] 02/11/2022 8:39 EDT Stomach/Bowel Review of Systems Grid Constipation : No Diarrhea : No Nausea : No Vomiting : No Hannah Garibaysánchez Blue MA 02/11/2022 8:39 EDT Urinary Review of Systems Grid Nocturia : No Urinary Incontinence : No Urinary Urgency : No Kirit Garibay [facility] 02/11/2022 8:39 EDT Skin Review of Systems Grid Itching : No Rash : No Sores : No Kirit Garibay [facility] 02/11/2022 8:39 EDT Hematology Review of Systems Grid Bleeds Easily : Yes Blood Clots : No Low Blood Count : No Kirit Garibay [facility] 02/11/2022 8:39 EDT Sleep Review of Systems Grid Daytime Sleepiness : No Fatigue : No Insomnia : Yes Snoring : Yes Kirit Garibay [facility] 02/11/2022 8:39 EDT Hematology ROS Comments : takes ASA d/t blockages; pt goes to [place] [facility] Sleep ROS Comments : pt uses bipap machine Kirit Garibay [facility] 02/11/2022 8:39 EDT Endocrine Review of Systems Grid High Blood Sugar : No Low Blood Sugar : No Kirit Garibay [facility] 02/11/2022 8:39 EDT Psychiatric Review of Systems Grid Anxious : No Kirit Garibay [facility] 02/11/2022 8:39 EDT Primary Pain Pain Symptoms [...] ligamentum flavum hypertrophy. L4-L5: There is a ygvv-gn-gbstgmrg posterior disc bulge with a mild superimposed central extrusion. There is mild right facet and ligamentum flavum hypertrophy. There is mild left neural foraminal narrowing. L4-L5: There is a dxyp-wb-xjxncejc posterior disc bulge/pseudo bulge. 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 Spondylolisthesis of lumbar region Grade 1 L4-5 spondylolisthesis grade 2 L5-S1 based on MRI report. To evaluate for any segmental instability we will obtain dynamic x-rays of lumbar spine flexion-extension views order given today. Ordered: Ambulatory Office Communication Order PM Inj Spine L/S With Imaging [id number] XR Spine Lumbar AP/LAT/FLEX/EXT 3. Lumbar stenosis with neurogenic claudication Patient does have radiculopathy pain left leg. I talked to him about epidural steroid injection versus nerve block as he has history of L3-4 laminectomy would recommend a left paramedian epidural steroid injection at the left L2-3 level. Patient does take a baby aspirin recommended by [place] [facility]ology so we will petition them for [...] Order PM Inj Spine L/S With Imaging [id number] XR Spine Lumbar AP/LAT/FLEX/EXT 4. Morbid obesity Ordered: Ambulatory Office Communication Order PM Inj Spine L/S With Imaging [id number] XR Spine Lumbar AP/LAT/FLEX/EXT 5. Coronary artery disease Unclear cardiac history. Says he does not have coronary disease but does take an antiplatelet drug.Will simply ask [place] cardiology if he can stop aspirin for 7 days before procedure. Ordered: PM Inj Spine L/S With Imaging [id number] XR Spine Lumbar AP/LAT/FLEX/EXT 6. Lumbar radiculopathy [...] C screening test Nephrolithiasis Neurogenic claudication Old [place] (myocardial infarction) Osteoarthritis Previous back surgery PSA [...] RICKEY HUNG MD on 04/06/2022 07:55 AM [facility] [id number] Evaluation + Plan note Future Scheduled Tests Laboratory* Uric Acid 04/23/21 * Complete Blood Count 04/23/21 * Complete Metabolic Panel 04/23/21 [facility] Discharge summary Author Dr. Singh [facility] October 16, 2022 8:00am Note Date/Time October 16, 2022 6:52 am [facility] Medical Records Department [address] [place] [address] Emergency Department Summary 10/16/22 MR#: [id number] Acct: [id number] Name: KRYSTYNA PADGETT Rep #:[id number] : [...] other surgeries, and it was not recent. [facility] Medical History Atherosclerotic heart disease of [place] coronary artery without angina pectoris Bilateral kidney [...] Intermediate Myalgia Verified 09/12/22 10:08 Family History (Reviewed 09/12/22 @ 10:30 by Anna Jones ORACLE FINANCIAL APPLICATION DEVELOPER, ORACLE FINANCIAL APPLICATION DEVELOPER-C) Mother CAD (coronary artery disease) CHF, stent [...] 74.0 H Lymph % (Auto) 14.9 L [place] % (Auto) 8.9 Eos % (Auto) 1.6 [...] Clarity Clear Urine pH 5.0 Ur Specific [place] 1.020 Urine Protein 15 H Urine Glucose [...] your Primary Care Provider. Call [facility] ([phone]) or report to the closest Emergency Room. Call 911 if necessary. 10/16/22 0800 <Electronically signed by Aditya Singh MD> Cosigner Signature (if applicable): CC: Dr. Manasa Zendejas DO ~ Signed [facility] Work Phone: Evaluation + Plan note Future Appointments Appointment Date:12/22/2021 09:30:00 AM Scheduled Provider:MANASA ZENDEJAS DO Location:[facility] Appointment Type: OV Follow Up Future Scheduled Tests Laboratory* Uric Acid 04/23/21 * Complete Blood Count 04/23/21 * Complete Metabolic Panel 04/23/21 [facility] Evaluation + Plan note Future Appointments Appointment Date:02/23/2022 09:00:00 AM Scheduled Provider:CALEB AJ MD Location:[facility] Appointment Type:NS ORACLE FINANCIAL APPLICATION DEVELOPER Future Scheduled Tests Laboratory* Uric Acid 04/23/21 * Complete Blood Count 04/23/21 * Complete Metabolic Panel 04/23/21 [facility] Evaluation + Plan note Future Appointments Appointment Date:03/16/2022 10:00:00 AM Scheduled Provider: Location:[facility] [place] Appointment Type:PM Inj Spine L/S With Imaging Future Scheduled Tests Laboratory* Uric Acid 04/23/21 * Complete Blood Count 04/23/21 * Complete Metabolic Panel 04/23/21 [facility] Evaluation + Plan note Future Appointments Appointment Date:05/27/2022 07:00:00 AM Scheduled Provider:RICKEY HUNG MD Location:PM Office Appointment Type:PM OV Future Scheduled Tests Laboratory* Uric Acid 04/23/21 * Complete Blood Count 04/23/21 * Complete Metabolic Panel 04/23/21 [facility] Evaluation + Plan note Future Appointments Appointment Date:11/16/2022 09:30:00 AM Scheduled Provider:MANASA ZENDEJAS DO Location:[facility] Appointment Type:PC OV Future Scheduled Tests Radiology* NM Myocardial Spect Rest/Stress 05/19/22 [facility] Evaluation + Plan note Future Appointments Appointment Date:10/21/2022 08:00:00 AM Scheduled Provider: Location:Heart Lab Appointment Type:EP Ablation RF-CARTO Appointment Date:11/16/2022 09:30:00 AM Scheduled Provider:MANASA ZENDEJAS DO Location:[facility] Appointment Type:PC OV Appointment Date:11/25/2022 12:00:00 PM Scheduled Provider:RICKEY HUNG MD Location:PM Office Appointment Type:PM OV Appointment Date:12/21/2022 11:45:00 AM Scheduled Provider: Location:[facility] Appointment Type:CV OV [facility] evaluation + Plan note Future Appointments Appointment Date:11/10/2022 09:00:00 AM Scheduled Provider: Location:Heart Lab Appointment Type:EP Ablation RF-CARTO Appointment Date:11/16/2022 09:30:00 AM Scheduled Provider:MANASA ZENDEJAS DO Location:[facility] Appointment Type:PC OV Appointment Date:11/25/2022 12:00:00 PM Scheduled Provider:RICKEY HUNG MD Location:PM Office Appointment Type:PM OV Appointment Date:12/21/2022 11:45:00 AM Scheduled Provider: Location:[facility] Appointment Type:CV OV Appointment Date:01/13/2023 11:15:00 AM Scheduled Provider: Location:[facility] Appointment Type:CV OV [facility] Evaluation + Plan note Future Appointments Appointment Date:02/24/2023 10:30:00 AM Scheduled Provider: Location:[facility] Appointment Type:CT Chest w/ Contrast Appointment Date:03/15/2023 08:30:00 AM Scheduled Provider: Location:[facility] [place] Appointment Type:PM Inj Spine L/S With Imaging Appointment Date:08/11/2023 10:00:00 AM Scheduled Provider:MANASA ZENDEJAS DO Location:[facility] Appointment Type:PC OV Appointment Date:01/15/2024 10:30:00 AM Scheduled Provider: Location:[facility] Appointment Type:CV OV Future Scheduled Tests Laboratory* Prostate Specific Antigen 02/08/23 * Uric Acid 02/08/23 * A1C Hemoglobin 02/08/23 * Complete Blood Count 02/08/23 * Lipid Profile 02/08/23 * Hepatitis C Antibody IgG 02/08/23 * Albumin/Creatinine Ratio, Random Urine 02/08/23 * Complete Metabolic Panel 02/08/23 Radiology* CT Thorax w/ Contrast 02/24/23 [facility] Evaluation + Plan note Future Appointments Appointment Date:03/15/2023 08:30:00 AM Scheduled Provider: Location:[facility] [place] Appointment Type:PM Inj Spine L/S With Imaging Appointment Date:08/11/2023 10:00:00 AM Scheduled Provider:MANASA ZENDEJAS DO Location:[facility] Appointment Type:PC OV Appointment Date:01/15/2024 10:30:00 AM Scheduled Provider: Location:[facility] Appointment Type:CV OV Future Scheduled Tests Laboratory* Prostate Specific Antigen 02/08/23 * Uric Acid 02/08/23 * A1C Hemoglobin 02/08/23 * Complete Blood Count 02/08/23 * Lipid Profile 02/08/23 * Hepatitis C Antibody IgG 02/08/23 * Albumin/Creatinine Ratio, Random Urine 02/08/23 * Complete Metabolic Panel 02/08/23 [facility] Evaluation + Plan note Future Appointments Appointment Date:06/13/2023 09:00:00 AM Scheduled Provider:GOKUL JANG Location:PM Office Appointment Type:PM OV [facility] Appointment Date:08/11/2023 10:00:00 AM Scheduled Provider:MANASA ZENDEJAS DO Location:[facility] Appointment Type:PC OV Appointment Date:01/15/2024 10:30:00 AM Scheduled Provider: Location:[facility] Appointment Type:CV OV Future Scheduled Tests Laboratory* Prostate Specific Antigen 02/08/23 * Uric Acid 02/08/23 * A1C Hemoglobin 02/08/23 * Complete Blood Count 02/08/23 * Lipid Profile 02/08/23 * Hepatitis C Antibody IgG 02/08/23 * Albumin/Creatinine Ratio, Random Urine 02/08/23 * Complete Metabolic Panel 02/08/23 Radiology* CT Thorax w/o Contrast 07/26/23 [facility] Evaluation + Plan note Future Appointments Appointment Date:07/27/2023 09:30:00 AM Scheduled Provider: Location:[facility] [place] Appointment Type:PM Inj Spine L/S With Imaging Appointment Date:08/11/2023 10:00:00 AM Scheduled Provider:MANASA ZENDEJAS DO Location:[facility] Appointment Type:PC OV Appointment Date:01/15/2024 10:30:00 AM Scheduled Provider: Location:[facility] Appointment Type:CV OV Future Scheduled Tests Laboratory* Prostate Specific Antigen 02/08/23 * Uric Acid 02/08/23 * A1C Hemoglobin 02/08/23 * Complete Blood Count 02/08/23 * Lipid Profile 02/08/23 * Hepatitis C Antibody IgG 02/08/23 * Albumin/Creatinine Ratio, Random Urine 02/08/23 * Complete Metabolic Panel 02/08/23 Radiology* CT Thorax w/o Contrast 07/26/23 [facility] Evaluation + Plan note Future Appointments Appointment Date:08/11/2023 10:00:00 AM Scheduled Provider:MANASA [facility]JAS [facility]PC OV Appointment Date:09/25/2023 07:20:00 AM [...] 02/08/23 Radiology* CT Thorax w/o Contrast 07/26/23 [facility] Evaluation + Plan note Future Appointments Appointment Date:09/25/2023 07:20:00 AM Scheduled Provider:RICKEY HUNG MD Location:PM Office Appointment Type:PM OV Appointment Date:01/15/2024 10:30:00 AM Scheduled Provider: Location:[facility] Appointment Type:CV OV Appointment Date:02/09/2024 08:00:00 AM Scheduled Provider:MANASA ZENDEJAS DO Location:[facility] Appointment Type:PC Wellness Medicare Future Scheduled Tests Laboratory* Prostate Specific Antigen 02/08/23 * Uric Acid 02/08/23 * A1C Hemoglobin 02/08/23 * Complete Blood Count 02/08/23 * Lipid Profile 02/08/23 * Hepatitis C Antibody IgG 02/08/23 * Albumin/Creatinine Ratio, Random Urine 02/08/23 * Complete Metabolic Panel 02/08/23 [facility] Evaluation + Plan note Future Appointments Appointment Date:12/26/2023 11:30:00 AM Scheduled Provider:RICKEY HUNG MD Location:PM Office Appointment Type:PM OV Appointment Date:01/15/2024 10:30:00 AM Scheduled Provider: Location:[facility] Appointment Type:CV OV Appointment Date:02/09/2024 09:00:00 AM Scheduled Provider:MANASA ZENDEJAS DO Location:[facility] Appointment Type:PC Wellness Medicare Future Scheduled Tests Laboratory* Prostate Specific Antigen 02/08/23 * Uric Acid 02/08/23 * A1C Hemoglobin 02/08/23 * Complete Blood Count 02/08/23 * Lipid Profile 02/08/23 * Hepatitis C Antibody IgG 02/08/23 * Albumin/Creatinine Ratio, Random Urine 02/08/23 * Complete Metabolic Panel 02/08/23 Radiology* CT Angiography Chest w/ Contrast 08/16/24 [facility] Evaluation + Plan note Future Appointments Appointment Date:02/09/2024 09:00:00 AM Scheduled Provider:MANASA ZENDEJAS DO Location:[facility] Appointment Type:PC Wellness Medicare Appointment Date:04/29/2024 11:30:00 AM Scheduled Provider:RICKEY HUNG MD Location:PM Office Appointment Type:PM OV Appointment Date:01/13/2025 10:15:00 AM Scheduled Provider: Location:[facility] Appointment Type:CV OV Future Scheduled Tests Laboratory* Prostate Specific Antigen 02/08/23 * Uric Acid 02/08/23 * A1C Hemoglobin 02/08/23 * Complete Blood Count 02/08/23 * Lipid Profile 02/08/23 * Hepatitis C Antibody IgG 02/08/23 * Albumin/Creatinine Ratio, Random Urine 02/08/23 * Complete Metabolic Panel 02/08/23 Radiology* CT Angiography Chest w/ Contrast 08/16/24 [facility] Evaluation + Plan note Future Appointments Appointment Date:08/14/2024 10:00:00 AM Scheduled Provider:MANASA ZENDEJAS DO Location:[facility] Appointment Type:PC OV Appointment Date:01/13/2025 10:15:00 [...] Radiology* CT Angiography Chest w/ Contrast 08/16/24 [facility] Evaluation + Plan note Future Appointments Appointment Date:08/14/2024 10:00:00 AM Scheduled Provider:MANASA ZENDEJAS DO Location:[facility] Appointment Type:PC OV Appointment Date:09/11/2024 08:15:00 [...] Radiology* CT Angiography Chest w/ Contrast 08/16/24 [facility] Evaluation + Plan note Future Appointments Appointment Date:09/11/2024 08:15:00 AM Scheduled Provider:ADOLFO SANCHES Location:PM Office Appointment Type:PM OV WJW Appointment Date:01/13/2025 10:15:00 AM Scheduled Provider:MIRI OLIVAREZ Location:[facility] Appointment Type:CV OV Appointment Date:02/12/2025 08:30:00 AM Scheduled Provider:MANASA ZENDEJAS DO Location:[facility] Appointment Type: Wellness Medicare Future Scheduled Tests Laboratory* Albumin/Creatinine Ratio, Random Urine 08/14/24 Radiology* CT Angiography Chest w/ Contrast 08/16/24 [facility] Evaluation + Plan note Future Appointments Appointment Date:11/07/2024 10:30:00 AM Scheduled Provider:JESUS LAZAR Location:PM Office Appointment Type:PM OV WJW Appointment Date:01/13/2025 10:15:00 AM Scheduled Provider:MIRI OLIVAREZ [facility] Appointment Type:CV OV Appointment Date:02/12/2025 08:30:00 AM Scheduled Provider:MANASA ZENDEJAS DO Location:[facility] Appointment Type:PC Wellness Medicare Future Scheduled Tests Laboratory* Albumin/Creatinine Ratio, Random Urine 08/14/24 Radiology* CT Angiography Chest w/ Contrast 08/16/24 [facility] Evaluation + Plan note Future Appointments Appointment Date:11/20/2024 10:30:00 AM Scheduled Provider:MANASA ZENDEJAS DO Location:[facility] Appointment Type:PC OV Appointment Date:01/13/2025 10:15:00 AM Scheduled Provider:MIRI OLIVAREZ Location:[facility] Appointment Type:CV OV Appointment Date:02/12/2025 08:30:00 AM Scheduled Provider:MANASA ZENDEJAS DO Location:[facility] Appointment Type:PC Wellness Medicare Future Scheduled Tests Laboratory* Albumin/Creatinine Ratio, Random Urine 08/14/24 [facility] Evaluation + Plan note Future Appointments Appointment Date:01/13/2025 10:15:00 AM Scheduled Provider:MIRI OLIVAREZ Location:[facility] Appointment Type:CV OV Appointment Date:02/12/2025 08:30:00 AM Scheduled Provider:MANASA ZENDEJAS DO Location:[facility] Appointment Type:PC Wellness Medicare Appointment Date:03/17/2025 11:50:00 AM Scheduled Provider:RICKEY HUNG MD Location:PM Office Appointment Type:PM OV Future Scheduled Tests Laboratory* Albumin/Creatinine Ratio, Random Urine 08/14/24 [facility] Evaluation note* Diagnosis Onset Date Resolution Status MARIELENA (obstructive sleep apnea) acute Obesity chronic MARIELENA (obstructive sleep apnea) acute Obesity [facility] Work Phone: Evaluation note* Diagnosis Onset Date Resolution Status MARIELENA (obstructive sleep apnea) acute Obesity chronic Dyspnea acute Atherosclerotic heart diseas e of [place] coronary artery without angina pectoris chronic HLD (hyperlipidemia) chronic Hypertension chronic PVCs (premature ventricular contractions) [facility] Work Phone: Evaluation note* Diagnosis Onset Date Resolution Status Atrial fibrillation acute Atherosclerotic heart diseas e of [place] coronary artery without angina pectoris chronic Essential hypertension chron ic Fatigue chronic HLD (hyperlipidemia) chronic PVCs (premature ventricular contractions) chronic Sinus bradycardia chronic Atrial fibrillation acute Atherosclerotic heart diseas [place] coronary artery without angina pectoris chronic Essential hypertension chron ic Fatigue chronic HLD (hyperlipidemia) chronic PVCs (premature ventricular contractions) chronic Sinus bradycardia chronic [facility] Work Phone: Evaluation note* Diagnosis Onset Date Resolution Status Atherosclerotic heart diseas e of [place] coronary artery without angina pectoris chronic Essential hypertension chron ic Fatigue chronic HLD (hyperlipidemia) chronic PVCs (premature ventricular contractions) chronic Sinus bradycardia chronic Atrial fibrillation resolved [facility] Work Phone: Hospital course Narrative No data available for this section [facility] Hospital Discharge instructions No data available for this section [facility] Hospital Discharge instructions Additional Instructions Please return to the ER if he have any further concerns or worsening of symptoms [facility] Work Phone: Note* Holger Madison RN: SIGN, VERIFY Event Display: Ablation RF-CARTO - CV [facility] Notf* Darinel Bradley E: PERFORM Event Display: Consent to Procedure Scanned Authored Date: [id number] [facility] progress note No data available for this section [facility] Management reason for referral (narrative)No reason for referral [facility] Work Phone: Chief Complaint and [...] apnea) Obesity Dyspnea Atherosclerotic heart disease of [place] coronary artery without angina pectoris HLD (hyperlipidemia) Hypertension PVCs (premature ventricular contractions) Chief Complaint 30 DAY MONITOR Amb Documentation 1 Y FU EKG per PFM 6 wk FU E ORDERS back and abd pain Reason for Visit Atrial fibrillation Atherosclerotic heart disease of [place] coronary artery without angina pectoris Essential hypertension Fatigue HLD (hyperlipidemia) PVCs (premature ventricular contractions) Sinus bradycardia Atrial fibrillation Atherosclerotic heart disease of [place] coronary artery without angina pectoris Essential hypertension Fatigue HLD (hyperlipidemia) PVCs (premature ventricular contractions) Sinus bradycardia Chief Complaint 4-6 MO F/U Amb Documentation Reason for Visit Atherosclerotic hear t disease of [place] coronary artery without angina pectoris Essential hypertension [...] M FU January 02, 2025 12:5 2pm Chief Complaint Admit Date Discuss CT October 07, 2024 8:0 2am LUNG October 15, 2024 10:0 7am 2 wk fu October 25, 2024 7:3 4am R06.00 - Dyspnea, unspecified October 6:21am R06.00 - Dyspnea, unspecified December 19, 2024 7:48am R06.00 - Dyspnea, unspecified December 23, 2024 10:20am 1 Y FU December 26, 2024 1:20 pm 6 M FU January 02, 2025 12:5 2pm INT LABS January 06, 2025 6:04 am Reason for Visit Admit Date Lung nodule, [...] (obstructive sleep apnea) December 26, 2024 1:20pm Dyspnea January 02, 2025 12:5 2pm Morbid obesity January 02, 2025 12:5 2pm MARIELENA (obstructive sleep apnea) January 02, 2025 12:52pm Family History No Family History Records Found Relationship Condition Age at Onset Recorded Date/T angel luis mother Coronary artery disease Unknown Congestive heart failure Unknown father Heart valve disease Unknown Advance Directives No Advanced Directives Records Found Advance Directive Response Recorded Date/ Time Advance Directives No August 3:00pm Living Will No May 16 10:21pm Power of Programming Development Project Manager No May 16, 2022 10:21pm Advance Directive Response Recorded Date/ Time Advance Directives No August 4:00pm Living Will No October 16, 2022 6:39am Power of Programming Development Project Manager No October 16 6:39am Advance Directive Response Recorded Date/ Time Living Will No October 16, 2022 6:39am Do you have a Healthcare Power of Programming Development Project Manager? No October 16, 2022 6:39am Living Will No July 02, 024 11:14am Do you have a Healthcare Power of Programming Development Project Manager? No July 02, 2024 11:14am Advance Directives No August 4:00pm Advance Directive Response Recorded Date/ Time Living Will No July 02, 2 024 11:14am Do you have a Healthcare Power of Programming Development Project Manager? No July 02, 2024 11:14am Advance Directives [...] Provider, Referrin g Provider Active Anna Jones [employer] FIN[employer]CIAL APPLICATION DEVELOPER, [employer]ACLE FINANCIAL APPLICATION DEVELOPER-C Attending Provider Active Team Status: Active Member Role Status Dates Dr. Manasa Zendejas DO Primary Care Provider Active Dr. Mark Grajeda MD Attending Provider Active Melissa Up PA, PA Referring Provider Active Team Status: Inactive Member Role Status Dates Dr. Manasa Zendejas DO Primary Care Provider Active Anna Jones [employer]LE FINANCIAL APPLICATION DEVELOPER, [employer]ACLE FINANCIAL APPLICATION DEVELOPER-C Attending Provider, Referring Pro vider Active Team Status: Inactive Member Role Status Dates Dr. Manasa Zendejas DO Primary Care Provider Active Dr. Aditya Singh MD Emergency Provider Active Team Status: Active Member Role Status Dates Dr. Manasa Zendejas DO Primary Care Provider Active Anna Jones [employer] FINANCIAL APPLICATION DEVELOPER, [employer]ACLE FINANCIAL APPLICATION DEVELOPER-C Attending Provider Active Team Status: Inactive Member [...] 2024 End: June 21, 2024 Cathy Ruiz ORACLE FINANCIAL APPLICATION DEVELOPER, ORACLE FINANCIAL APPLICATION DEVELOPER-C Attending Provider Active Start: June 21, 2024 [...] 2024 End: October 07, 2024 Cathy Ruiz ORACLE FINANCIAL APPLICATION DEVELOPER, ORACLE FINANCIAL APPLICATION DEVELOPER-C Attending Provider Active Start: October 07, 2024 End: October 07, 2024 Team Status: Inactive Member Role Status Dates Dr. Manasa Zendejas DO Primary Care Provider Active Start: October 07, 2024 End: October 07, 2024 Cathy Ruiz ORACLE FINANCIAL APPLICATION DEVELOPER, ORACLE FINANCIAL APPLICATION DEVELOPER-C Attending Provider Active Start: October 07, 2024 End: October 07, 2024 Cathy Ruiz ORACLE FINANCIAL APPLICATION DEVELOPER, ORACLE FINANCIAL APPLICATION DEVELOPER-C Referring Provider Active Start: October 07, 2024 End: October 07, 2024 Team Status: Active Member Role Status Dates Dr. Manasa Zendejas DO Primary Care Provider Active Team Status: Inactive Member Role Status Dates Dr. Manasa Zendejas DO Primary Care Provider Active Start: October 15, 2024 End: October 15, 2024 Cathy Ruiz ORACLE FINANCIAL APPLICATION DEVELOPER, ORACLE FINANCIAL APPLICATION DEVELOPER-C Attending Provider Active Start: October 15, 2024 End: October 15, 2024 Cathy Ruiz ORACLE FINANCIAL APPLICATION DEVELOPER, ORACLE FINANCIAL APPLICATION DEVELOPER-C Referring Provider Active Start: October 15, 2024 End: October 15, 2024 Team Status: Inactive Member Role Status Dates Dr. Manasa Zendejas DO Primary Care Provider Active Start: October 25, 2024 End: October 25, 2024 Dr. Manasa Zendejas DO Referring Provider Active Start: October 25, 2024 End: October 25, 2024 Cathy Ruiz ORACLE FINANCIAL APPLICATION DEVELOPER, ORACLE FINANCIAL APPLICATION DEVELOPER-C Attending Provider Active Start: October 25, 2024 End: October 25, 2024 Team Status: Inactive Member Role Status Dates Dr. Manasa Zendejas DO Primary Care Provider Active Start: October 30, 2024 End: October 30, 2024 Cathy Ruiz ORACLE FINANCIAL APPLICATION DEVELOPER, ORACLE FINANCIAL APPLICATION DEVELOPER-C Attending Provider Active Start: October 30, 2024 End: October 30, 2024 Cathy Ruiz ORACLE FINANCIAL APPLICATION DEVELOPER, ORACLE FINANCIAL APPLICATION DEVELOPER-C Referring Provider Active Start: October 30, 2024 End: October 30, 2024 Team Status: Inactive Member Role Status Dates Dr. Manasa Zendejas DO Primary Care Provider Active Start: December 19, 2024 End: December 19, 2024 Cathy Ruiz ORACLE FINANCIAL APPLICATION DEVELOPER, ORACLE FINANCIAL APPLICATION DEVELOPER-C Attending Provider Active Start: December 19, 2024 End: December 19, 2024 Cathy Ruiz ORACLE FINANCIAL APPLICATION DEVELOPER, ORACLE FINANCIAL APPLICATION DEVELOPER-C Referring Provider Active Start: December 19, 2024 End: December 19, 2024 Team Status: Active Member Role Status Dates Dr. Manasa Zendejas DO Primary Care Provider Active Start: December 23, 2024 Cathy Ruiz ORACLE FINANCIAL APPLICATION DEVELOPER, ORACLE FINANCIAL APPLICATION DEVELOPER-C Referring Provider Active Start: December 23, 2024 Cathy Ruiz ORACLE FINANCIAL APPLICATION DEVELOPER, ORACLE FINANCIAL APPLICATION DEVELOPER-C Other Provider Active Start: December 23, 2024 Dr. Cale Ron DO Attending Provider Active S tart: December [...] 02, 2025 End: January 02, 2025 Dr. Manasa Zendejas DO Referring Provider Active Start: January 02, 2025 End: January 02, 2025 Cathy Ruiz ORACLE FINANCIAL APPLICATION DEVELOPER, ORACLE FINANCIAL APPLICATION DEVELOPER-C Attending Provider Active Start: January 02, 2025 End: January 02, 2025 Team Status: Active Member Role/Relationship Status Dates Dr. Manasa Zendejas DO Primary Care Provider Active Team Status: Inactive Member Role/Relationship Status Dates Dr. Manasa Zendejas DO Primary Care Provider Active Start: October 07, 2024 End: October 07, 2024 Dr. Manasa Zendejas DO Referring Provider Active Start: October 07, 2024 End: October 07, 2024 Cathy Ruiz ORACLE FINANCIAL APPLICATION DEVELOPER, ORACLE FINANCIAL APPLICATION DEVELOPER-C Attending Provider Active Start: October 07, 2024 End: October 07, 2024 Team Status: Inactive Member Role/Relationship Status Dates Dr. Manasa Zendejas DO Primary Care Provider Active Start: October 07, 2024 End: October 07, 2024 Cathy Ruiz ORACLE FINANCIAL APPLICATION DEVELOPER, ORACLE FINANCIAL APPLICATION DEVELOPER-C Attending Provider Active Start: October 07, 2024 End: October 07, 2024 Cathy Ruiz ORACLE FINANCIAL APPLICATION DEVELOPER, ORACLE FINANCIAL APPLICATION DEVELOPER-C Referring Provider Active Start: October 07, 2024 End: October 07, 2024 Team Status: Inactive Member Role/Relationship Status Dates Dr. Manasa Zendejas DO Primary Care Provider Active Start: October 15, 2024 End: October 15, 2024 Cathy Ruiz ORACLE FINANCIAL APPLICATION DEVELOPER, ORACLE FINANCIAL APPLICATION DEVELOPER-C Attending Provider Active Start: October 15, 2024 End: October 15, 2024 Cathy Ruiz ORACLE FINANCIAL APPLICATION DEVELOPER, ORACLE FINANCIAL APPLICATION DEVELOPER-C Referring Provider Active Start: October 15, 2024 End: October 15, 2024 Team Status: Inactive Member Role/Relationship Status Dates Dr. Maansa Zendejas DO Primary Care Provider Active Start: October 25, 2024 End: October 25, 2024 Dr. Manasa Zendejas DO Referring Provider Active Start: October 25, 2024 End: October 25, 2024 Cathy Ruiz ORACLE FINANCIAL APPLICATION DEVELOPER, ORACLE FINANCIAL APPLICATION DEVELOPER-C Attending Provider Active Start: October 25, 2024 End: October 25, 2024 Team Status: Inactive Member Role/Relationship Status Dates Dr. Manasa Zendejas DO Primary Care Provider Active Start: October 30, 2024 End: October 30, 2024 Cathy Ruiz ORACLE FINANCIAL APPLICATION DEVELOPER, ORACLE FINANCIAL APPLICATION DEVELOPER-C Attending Provider Active Start: October 30, 2024 End: October 30, 2024 Cathy Ruiz ORACLE FINANCIAL APPLICATION DEVELOPER, ORACLE FINANCIAL APPLICATION DEVELOPER-C Referring Provider Active Start: October 30, 2024 End: October 30, 2024 Team Status: Inactive Member Role/Relationship Status Dates Dr. Manasa Zendejas DO Primary Care Provider Active Start: December 19, 2024 End: December 19, 2024 Cathy Ruiz ORACLE FINANCIAL APPLICATION DEVELOPER, ORACLE FINANCIAL APPLICATION DEVELOPER-C Attending Provider Active Start: December 19, 2024 End: December 19, 2024 Cathy Ruiz ORACLE FINANCIAL APPLICATION DEVELOPER, ORACLE FINANCIAL APPLICATION DEVELOPER-C Referring Provider Active Start: December 19, 2024 End: December 19, 2024 Team Status: Active Member Role/Relationship Status Dates Dr. Manasa Zendejas DO Primary Care Provider Active Start: December 23, 2024 Cathy Ruiz ORACLE FINANCIAL APPLICATION DEVELOPER, ORACLE FINANCIAL APPLICATION DEVELOPER-C Referring Provider Active Start: December 23, 2024 Cathy Ruiz ORACLE FINANCIAL APPLICATION DEVELOPER, ORACLE FINANCIAL APPLICATION DEVELOPER-C Other Provider Active Start: December 23, 2024 Dr. Cale Ron DO Attending Provider Active S tart: December 23, 2024 Team Status: Inactive Member Role/Relationship Status Dates Dr. Manasa Zendejas DO Primary Care Provider Active Start: December 26, 2024 End: December 26, 2024 Dr. Manasa Zendejas DO Referring Provider Active Start: December 26, 2024 End: December 26, 2024 Dr. Donn Hawk MD Attending Provider Active Start: December 26, 2024 End: December 26, 2024 Team Status: Inactive Member Role/Relationship Status Dates Dr. Manasa Zendejas DO Primary Care Provider Active Start: January 02, 2025 End: January 02, 2025 Dr. Manasa Zendejas DO Referring Provider Active Start: January 02, 2025 End: January 02, 2025 Cathy Ruiz ORACLE FINANCIAL APPLICATION DEVELOPER, ORACLE FINANCIAL APPLICATION DEVELOPER-C Attending Provider Active Start: January 02, 2025 End: January 02, 2025 Team Status: Inactive Member Role/Relationship Status Dates Dr. Manasa Zendejas DO Primary Care Provider Active Start: January 06, 2025 End: January 06, 2025 Dr. Donn Hawk MD Attending Provider Active Start: January 06, 2025 End: January 06, 2025 Dr. Donn Hawk MD Referring Provider Active Start: January 06, 2025 End: January 06, 2025 Care Team (unrecognized sect ion and content) Personnel Name: MANASA ZENDEJAS DO Address: Address: [address] [place] [address]- Care Team Personnel Name: MANASA ZENDEJAS DO Position: P4 Physician - Primary Care Med Service: Active Provider Member Role: Primary Care Physician Address: Address: [address] [place] [address]- Care Team Related Persons Name: ANNA PADGETT Care Team Personnel Name: MANASA ZENDEJAS DO Position: P4 Physician - Primary Care Med Service: Active Provider Member Role: Primary Care Physician Address: Address: [address] [place] [address] Care Team Related Persons Name: ANNA PADGETT Care Team Personnel Name: MANASA ZENDEJAS DO Position: P4 Physician - Primary Care Med Service: Active Provider Member Role: Primary Care Physician Address: Address: [address] [place] [address] Care Team Related Persons Name: ANNA PADGETT Care Team Personnel Name: MANASA ZENDEJAS DO Position: P4 Physician - Primary Care Med Service: Active Provider Member Role: Primary Care Physician Address: Address: [address] [place] [address] Care Team Related Persons Name: ANNA PADGETT Care Team Personnel Name: MANASA ZENDEJAS DO Position: P4 Physician - Primary Care Member Role: Primary Care Physician Address: Address: [address] [place] [address] Care Team Related Persons Name: ANNA PADGETT Goals (unrecognized section and content) Goals may be documented in a n alternate section (unrecognized sect ion and content) No Status Records FoundNo Status Records FoundNo Status Records FoundNo Status Records Found INFORMATION SOURCE (unrecogn ized section and content) DATE CREATED AUTHOR 02/01/2024 [facility] ([place]) DATE CREATED AUTHOR AUTHOR'S ORGANIZ ATION 11/24/2024 [facility] DATE CREATED AUTHOR AUTHOR'S ORGANIZ ATION 01/12/2025 [facility] DATE CREATED AUTHOR AUTHOR'S ORGANIZ ATION 01/12/2025 [facility] FOR RECORDS PERTAINING TO PATIENTS WHO ARE [...] BE BASED ON THE PRIMARY CLINICAL RECORDS. [facility] provides no warranty or guarantee of the accuracy or completeness of information in this document.
--- OUTSIDE RECORDS SUMMARY | 2025-01-21 07:00 | XMS RPT_ITS | CCD ---
Author Organization [facility] CliniSyny Care Team Providers Care Strip Tank Tender Name Role Phone MANASA ZENDEJAS DO Primary Care Physician [phone] Dr. Manasa Zendejas Primary Care Provider [phone] Dr. Manasa Zendejas Referring Provider [phone] Dr. Cale Ron Attending Provider [phone] Sara HARDING, INSTALLATION HELPER-C Cathy Attending Provider [phone] Dr. Manasa Zendejas Primary Care Provider [phone] Dr. Manasa Zendejas Referring Provider [phone])2014 Luis HARDING, MIKAYLA Jones Attending Provider Dr. Manasa Zendejas Other Provider Unavailable Dr. Byron Lora Attending Provider [phone] Dr. Mark Grajeda Attending Provider [phone] Dr. Manasa Zendejas Primary Care Provider [phone] Dr. Mark Grajeda Attending Provider [phone] Jeovanny DORAN, PA Melissa Blue Referring Provider Melissa Mcintosh Attending Provider Unavailable Dr. Manasa Zendejas Referring Provider [phone] Robert HARDING, INSTALLATION HELPER-C Anna Varma Attending Provider [phone] Dr. Manasa Zendejas Primary Care Provider [phone] Dr. Manasa Zendejas Referring Provider [phone] Robert INSTALLATION HELPER, INSTALLATION HELPER-C Anna Varma Attending Provider [phone] GOKUL VALENZUELA Attending Unavailab le CRISTIANA DUBOIS, MANASA Primary Care Unavailable KRYSTYNA MANZANO Attending Unavailable CRISTIANA DUBOIS, MANASA Primary Care Unavailable MANASA ZENDEJAS DO Attending Unavailable CRISTIANA DUBOIS, MANASA Primary Care Unavailable MANASA ZENDEJAS DO Attending Unavailable HALKO DO, MANASA Primary Care Unavailable HALKO DO, MANASA Attending Unavailable HALKO DO, MANASA Primary Care Unavailable ABHILASH VEGA, RICKEY Morales Attending Unavail able HALKO DO, MANASA Primary Care Unavailable SOLO CRISIS NURSE-BLOCK PAVER, MARCOS Cohn Attending Unavai lable HALKO DO, MANASA Primary Care Unavailable HALKO DO, MANASA Primary Care Unavailable SUHAIL CRISIS NURSE-MACHINE PRECISION ETCHER, GOKUL Attending Unavailab silvia HUNG MD, RICKEY Morales Attending Unavail able HALKO DO, MANASA Primary Care Unavailable RICKEY HUNG MD Attending Unavail able HALKO DO, MANASA Primary Care Unavailable SOLO CRISIS NURSE-BLOCK PAVER, MARCOS Cohn Attending Unavai lable HALKO DO, MANASA Primary Care Unavailable Halalonzo DUBOIS, Dr. Lu Primary Care Provider Dr. Manasa Zendejas DO Referring Provider [phone] Sara INSTALLATION HELPER-C, Cathy Attending Provider Dr. Behzad Rivera DO Attending Provider [phone] Behzad Rivera DO Emergency Provider Sara INSTALLATION HELPER-C, Cathy Referring Provider Dr. Manasa Zendejas DO Primary Care Provider Dr. Manasa Zendejas DO Referring Provider Sara INSTALLATION HELPER-C, Cathy Attending Provider Cristiana DUBOIS, Dr. Lu Primary Care Provider [phone] CRISTIANA DO, MANASA Attending Unavailable HALKO DO, MANASA Primary Care Unavailable HALKO DO, MANASA Attending Unavailable HALKO DO, MANASA Primary Care Unavailable HALKO DO, MANASA Primary Care Unavailable HALKO DO, MANASA Attending Unavailable Sara INSTALLATION HELPER-C, Cathy Other Provider Dr. Cale Ron DO Attending Provider Kenn VEGA, Dr. Pop Attending Provider Dr. Donn Hawk MD Referring Provider Sara INSTALLATION HELPER, Cathy Referring Unavailable Halko, Manasa Primary Care Unavailable Cale Ron Attending Unavailable Ruiz INSTALLATION HELPER, Cathy Referring Unavailable Ruiz INSTALLATION HELPER, Cathy Attending Unavailable Halko, Manasa Primary Care Unavailable Ruiz INSTALLATION HELPER, Cathy Attending Unavailable Halko, Manasa Referring Unavailable Halko, Manasa Primary Care Unavailable Ruiz INSTALLATION HELPER, Cathy Attending Unavailable Halko, Manasa Referring Unavailable Halko, Manasa Primary Care Unavailable Ruiz INSTALLATION HELPER, Cathy Attending Unavailable Halko, Manasa Referring Unavailable Halko, Manasa Primary Care Unavailable Ruiz INSTALLATION HELPER, Cathy Attending Unavailable Halko, Manasa Referring Unavailable Halko, Manasa Primary Care Unavailable Halko, Manasa Primary Care Unavailable Halko, Manasa Referring Unavailable Kenn, Donn Attending Unavailable Ruiz INSTALLATION HELPER, Cathy Attending Unavailable Halko, Manasa Referring Unavailable Halko, Manasa Primary Care Unavailable Halko, Manasa Primary Care Unavailable Kenn, Donn Attending Unavailable Smith INSTALLATION HELPER, Karen Attending Unavailable Halko, Manasa Primary Care Unavailable Ruiz INSTALLATION HELPER, Cathy Referring Unavailable Ruiz INSTALLATION HELPER, Cathy Consulting Unavailable Halko, Manasa Primary Care Unavailable Cale Ron Attending Unavailable Ruiz INSTALLATION HELPER, Cathy Referring Unavailable Ruiz INSTALLATION HELPER, Cathy Attending Unavailable Halko, Manasa Primary Care Unavailable Ruiz INSTALLATION HELPER, Cathy Attending Unavailable Ruiz INSTALLATION HELPER, Cathy Referring Unavailable Halko, Manasa Primary Care Unavailable Ruiz INSTALLATION HELPER, Cathy Attending Unavailable Ruiz INSTALLATION HELPER, Cathy Referring Unavailable Ruiz INSTALLATION HELPER, Cathy Attending Unavailable Halko, Manasa Primary Care Unavailable Halko, Manasa Primary Care Unavailable Behzad Rivera Attending Unavailable Kenn, Donn Referring Unavailable Halko, Manasa Primary Care Unavailable Kenn, Donn Attending Unavailable Kenn, Donn Referring Unavailable Halko, Manasa Primary Care Unavailable Kenn, Donn Attending Unavailable NAGI CRISIS NURSE-MACHINE PRECISION ETCHER, JESUS Attending Unavailab le HALKO DO, MANASA Primary Care Unavailable NAGI CRISIS NURSE-MACHINE PRECISION ETCHER, JESUS Attending Unavailab le HALKO DO, MANASA Primary Care Unavailable NAGI CRISIS NURSE-MACHINE PRECISION ETCHER, JESUS Attending Unavailab le HALKO DO, MANASA [...] Translations: [betaxolol] Drug Allergy Low heart rate [facility] (20 sources) cloNIDine; Translations: [clonidine] Drug Allergy 2 Unknown (qualifier value) [facility] Comment on above: heart rate low (20 sources) Lisinopril; Translations: [lisinopril] Drug Allergy 2 Angioedema (disorder) [facility] (20 sources) rosuvastatin; Translations: [rosuvastatin] Drug Allergy 2 severe myalgias, Myalgia [facility] (13 sources) Adrenergic Beta-Antagonists Allergy to substance 2 HEART RATE DROPS VERY LOW [facility] (13 sources) Angiotensin Converting Enzyme (Vickie) Inhibitors Allergy to substance 2 Angioedema [facility] (13 sources) Simvastatin Drug Allergy 2 myalgia [facility] (1 source) Adrenergic Beta-Antagonists Drug allergy (disorder) 5 [facility] (1 source) Angiotensin Converting Enzyme (Vickie) Inhibitors Drug allergy (disorder) 5 [facility] (1 source) cloNIDine Drug Allergy 5 [facility] (1 source) Lisinopril Drug Allergy 5 [facility] (1 source) rosuvastatin Drug Allergy 5 [facility] (1 source) Simvastatin Drug Allergy 5 [facility] Medications Current Medications Medication Drug [...] 08/21/23 10:40:00 AM EST, [facility]: [id number], 167, cm, 02/02/24 10:08:00 EST, Height, 122.2, [...] attention, # 100 tab(s), 0 Refill(s), Pharmacy: [facility], 167, cm, 05/19/22 11:15:00 EST, Height Start Date: 05/19/22 Stop Date: 08/17/22 Status: Ordered Quantity: 100.0 Unit: tab(s) Repeat number: 1 pantoprazole 40 mg delayed release oral tablet (1 source) Proton Pump Inhibitor Start: 11-10-2022 pantoprazole 40 mg oral enteric coated tablet Dose : 40 mg = 1 tab(s), Oral, qDay, # 30 tab(s), 0 Refill(s), [facility]acy: [facility] #[id number], 167.6, cm, 11/10/22 6:22:00 EDT, Height Start [...] 30 tab(s), 0 Refill(s), [facility]: [facility] #[id number], 167, cm, 08/11/23 10:08:00 EST, Height, kg, 08/11/23 10:08:00 EST, Dosing Weight Start Date: 08/11/23 Stop Date: 09/10/23 Status: Ordered Quantity: 30.0 Unit: tab(s) Repeat number: 1 silver sulfADIAZINE 10 mg/ml topical cream (1 source) Sulfonamide Antibacterial Start: 11-20-2024 silver sulfADIAZINE 1% topical cream Apply 1 mali, Topical, BID, # 30 gram(s), 0 Refill(s), Pharmacy: [facility], Cream, 166, cm, 11/20/24 9:50:00 [...] BID, # 30 gram(s), 1 Refill(s), Pharmacy: [facility], Cream, 168, cm, 08/14/24 9:37:00 EST, [...] ial fibrillation and flutter on 11/10/2022 at [facility]; Cardiac dysrhythmias (20 sources) Sinus bradycardia; [...] sources) Long-term current use of anticoagulant; Translations: [watermaster (current) use of anticoagulants] Onset: 3 Episodic Other aftercare (1 source) watermaster (current) use of anticoagulants; Translations: [watermaster (current) use of anticoagulants] Onset: 5 Episodic [...] 01-06-2025 Anion gap [Moles/Vol] 11 mmol/L 11-21 [facility] BUN/creatinine ratioOrdered By: Donn Hawk on 01-06-2025 Urea nitrogen/Creatinine [Mass ratio] 22.4 mg/mg High 04-28 [facility] Basic Metabolic Profile (BMP )on 01-06-2025 BUN/CRE 22.4 RATIO High 04-28 [facility] Comment on above: Performed By: #### L 500.2500 #### [facility] [address], [address] Calcium [Mass/Vol] 9.0 mg/dL Normal 7.6-11.0 [facility] Comment on above: Performed By: #### L 500.2500 #### [facility] [address] [place], [address] Chloride [Moles/Vol] 102 mmol/L Normal 98-108 [facility] Comment on above: Performed By: #### L 500.2500 #### [facility] [address] [place], [address] CO2 [Moles/Vol] 29.6 mmol/L Normal 21.0-32.0 [facility] Comment on above: Performed By: #### L 500.2500 #### [facility] [address] [place], [address] Creatinine [Mass/Vol] 0.95 mg/dL Normal 0.70-1.20 [facility] Comment on above: Performed By: #### L 500.2500 #### [facility] [address] [place], [address] GAP 11 Normal 5-15 [facility] Comment on above: Performed By: #### L 500.2500 #### [facility] [address] [place], [address] GFR/1.73 sq M.predicted among non-blacks MDRD (S/P/Bld) [Vol rate/Area] 88 mL/min/{1.73_m2} Normal >60 [facility] Comment on above: Result Comment: mL/m in/1.73m2 CKD-EPI Creatinine Equation (2020) Performed By: #### L 500.2500 #### [facility] [address] [place], [address] Glucose [Mass/Vol] 90 mg/dL Normal 70-99 [facility] Comment on above: Performed By: #### L 500.2500 #### [facility] [address] [place], [address] Potassium [Moles/Vol] 4.1 mmol/L Normal 3.3-5.1 [facility] Comment on above: Performed By: #### L 500.2500 #### [facility] [address] [place], [address] Sodium [Moles/Vol] 142 mmol/L Normal 133-145 [facility] Comment on above: Performed By: #### L 500.2500 #### [facility] [address] [place], [address] Urea nitrogen [Mass/Vol] 21 mg/dL High 4-19 [facility] Comment on above: Performed By: #### L 500.2500 #### [facility] [address] [place], [address] Carbon dioxide, total [Moles /volume] in Central venous bloodOrdered By: Donn Hawk on 01-06-2025 CO2 [Moles/Vol] 29.6 mmol/L 21.0-32.0 [facility] Chloride assayOrdered By: Mt Hawk on 01-06-2025 Chloride [Moles/Vol] 102 mmol/L 98-108 [facility] Glomerular filtration rate ( GFR) estimation/1.73 sq m using serum, plasma, or whole bOrdered By: Donn Hawk on 01-06-2025 GFR/1.73 sq M.predicted among non-blacks MDRD (S/P/Bld) [Vol rate/Area] 88 mL/min/{1.73_m2} >60 [facility] Comment on above: mL/min/1.73m2 CKD-EP I Creatinine Equation (2020) Potassium measurement (mass/ volume)Ordered By: Donn Hawk on 01-06-2025 Potassium (Unsp spec) [Mass/Vol] 4.1 mmol/L 3.3-5.1 [facility] Serum creatinine measurement (mass/volume)Ordered By: Donn Hawk on 01-06-2025 Creatinine [Mass/Vol] 0.95 mg/dL 0.70-1.20 [facility] Serum glucose measurement (m ass/volume)Ordered By: Donn Hawk on 01-06-2025 Glucose [Mass/Vol] 90 mg/dL 70-99 [facility] Serum or plasma calcium nallely urement (mass/volume)Ordered By: Donn Hawk on 01-06-2025 Calcium [Mass/Vol] 9.0 mg/dL 7.6-11.0 [facility] Serum or plasma urea nitroge n measurement (mass/volume)Ordered By: Donn Hawk on 01-06-2025 Urea nitrogen [Mass/Vol] 21 mg/dL High 4-19 [facility] Sodium levelOrdered By: Christo Hawk on 01-06-2025 Sodium [Moles/Vol] 142 mmol/L 133-145 [facility] Pulmonary Visit Reporton Pulmonary Visit Report [facility] [place] [address] [place] [address]. [address] [place] [address] OFFICE VISIT Date of Service: 01/02/25 MR#: [id number] Acct: [id number] Name: KRYSTYNA PADGETT Rep #: [id number] : 1955 Provider: MIKAYLA Ruiz Age/Sex: 69/M [place] [facility] Status: Signed Assessment and Plan Assessment and [...] diffusing capacity. The patient states that his scaler adjusted his diuretics after the PFT. Walking [...] Additional Comments: This note was generated with Bnook[employer] software. It may contain incorrect words, spelling, [...] 6 M FU Chief Complaint: F/u MARIELENA Campaign Advisor Required: No DME Vendor: Alexi Accompanied by: [...] tabs 09/29/ (more content not included)... Normal [facility] Cardiology Visit Reporton Cardiology Visit Report [facility] [address] [facility] [place] [address] OFFICE VISIT Date of Service: 12/26/24 MR#: [id number] Acct: [id number] Name: KRYSTYNA PADGETT Rep #: [id number] : 1955 Provider: Dr. Donn Hawk MD Age/Sex: 69/M [place] [facility] Status: Signed HPI HPI History of Present [...] air Intake Visit Reasons: 1 Y FU Campaign Advisor Required: No Accompanied by: Self Is patient [...] (premature ventricular contractions) Atherosclerotic heart disease of [place] coronary artery without angina pectoris Sinus bradycardia [...] patient al (more content not included)... Normal [facility] 6 Minute Walk Teston 025 6 Minute Walk Test y [facility]monary Services/Neurology [address] [place] [address] MR#: [id number] Acct: [id number] Name: KRYSTYNA PADGETT Rep #: [id number] : 1955 69 From: Cale Ron DO Referring Dr: Cathy Ruiz INSTALLATION HELPER INSTALLATION HELPER-C Status: REG CLI Location: PSN Date: Sex: M C PSN 6 Minute Walk Test 6 Minute Walk Test 6 Minute Walk Test: 6 Minute Walk Test PSN:6-Minute Walk Test Start: 12/19/24 08:24 Freq: Status: Active Protocol: RESP.6MINW Document 12/19/24 08:24 [facility] (Rec: 12/19/24 08:30 [facility] [id number]) 6 Minute Walk Test Date Performed 12/19/24 [...] Dictated: 12/23/24 1020 Date Transcribed: 12/23/24 1020 Eight Arm Operator: Dr. Cale Ron, DO Signed Normal [facility] 11-20-2024 U Creatinine 87.0 mg/dL Normal 40.0-278.0 [facility] Comment on above: Performed By: #### A DIFF, PSA, ANEU, CBC, A1C, GFR, CMP, URIC, LIPID #### [address] [address] #### HCV1 #### [address] [address] U Microalb 6.0 mg/L Normal [facility] Comment on above: Performed By: #### A DIFF, PSA, ANEU, CBC, A1C, GFR, CMP, URIC, LIPID #### [address] [address] #### HCV1 #### [address] [address] U Ratio Alb/Cre 7 mg/G Normal 0-30 [facility] Comment on above: Performed By: #### A DIFF, PSA, ANEU, CBC, A1C, GFR, CMP, URIC, LIPID #### [facility] [address] [place], [place] [address] #### HCV1 #### [facility] [address] [place] [address] Pulmonary Visit Reporton Pulmonary Visit Report [facility] [place] [address] [place] [address] OFFICE VISIT Date of Service: 10/25/24 MR#: [id number] Acct: [id number] Name: KRYSTYNA PADGETT Rep #: [id number] : 1955 Provider: MIKAYLA Ruiz Age/Sex: 69/M [place] [facility] Status: Signed Assessment and Plan Assessment and [...] fu, Test results Chief Complaint: F/u MARIELENA Campaign Advisor Required: No DME Vendor: Alexi Accompanied by: [...] year?: No PFSH Medical History ... Normal [facility] Positron emission tomography scan reportOrdered By: Ryan Santana on 10-17-2024 PT Unspecified body region [facility] Services [address] [place] [address] PET/CT Tumor Base -Thigh Init MR#: [id number] Acct: [id number] Name: KRYSTYNA PADGETT Rep #: [id number] : 1955 M 69 From: Pet er Franky DUBOIS PCP: Dr. Manasa Zendejas DO Status: REG CLI Study:PET/CT Tumor Base -Thigh Init Date of E xam: 10/15/24 Exam# [id number] Ordering Dr: Tejas Ruiz NP INSTALLATION HELPER-C ADDENDUM by Dr. Ryan Santana DO on [...] IMPRESSION: No abnormal hypermetabolic uptake. Reading Location: [facility] CC: MIKAYLA Ruiz; Dr. Manasa Zendejas DO ~ Eight Arm Operator: Signed [facility] PET/CT Tumor Base -Thigh Ini ton 10-15-2024 PET/CT Tumor Base -Thigh Init [facility] Imaging Services [address] [place] [address] PET/CT Tumor Base -Thigh Init MR#: [id number] Acct: [id number] Name: KRYSTYNA PADGETT Rep #: [id number] : 1955 M 69 From: Ryan Santana DO PCP: Dr. Manasa Zendejas DO Status: REG CLI Study: PET/CT Tumor Base -Thigh Init Date of Exam: Exam# [id number] Ordering Dr: Cathy Ruiz NP ADDENDUM by Dr. Ryan Santana DO on 10/17/24 at 1042 Previous PET exam images from 11/21/2023 are now available for comparison. The prior exam showed no abnormal right lung hypermetabolic focus. There has been no interval change. The current study shows no abnormal hypermetabolic focus in the right lung. Reading Location: [facility] 10/17/24 1042 Date cc: MIKAYLA Ruiz; Dr. [...] IMPRESSION: No abnormal hypermetabolic uptake. Reading [facility] CC: MIKAYLA Ruiz; Dr. Manasa Zendejas DO Eight Arm Operator: Signed Normal [facility] Activated partial thrombopla stin time (aPTT) in platelet poor plasma by coagulation aOrdered By: Cathy Ruiz on 10-07-2024 aPTT Coag (PPP) [Time] 32.2 s 24.1-36.2 [facility] normalized rat io (INR) calculationOrdered By: Cathy Ruiz on 10-07-2024 INR Coag (Bld) [Relative time] 1.1 {INR} [facility] Partial Thromboplast Timeon 10-07-2024 aPTT Coag (Bld) [Time] 32.2 s Normal 24.1-36.2 [facility] Comment on above: Performed By: #### L 100.1900, L300.3900, L300.4310 #### [facility] [address] [place], [address] Platelet Counton 10-07-2024 Platelets (Bld) [#/Vol] 227 10*3/uL Normal 150-450 [facility] Comment on above: Performed By: #### L 100.1900, L300.3900, L300.4310 #### [facility] [address] [place], [address] Platelet countOrdered By: Adryan Ruiz on 10-07-2024 Platelets (Bld) [#/Vol] 227 10*3/uL 150-450 [facility] Prothrombin Time w/INRon INR Coag (PPP) [Relative time] 1.1 {INR} Normal [facility] Comment on above: Performed By: #### L 100.1900, L300.3900, L300.4310 #### [facility] [address] [place], [address] PT Coag (PPP) [Time] 14.2 s Normal 11.7-14.9 [facility] Comment on above: Performed By: #### L 100.1900, L300.3900, L300.4310 #### [facility] [address] [place], [address] Prothrombin timeOrdered By: Cathy Ruiz on 10-07-2024 PT Coag (PPP) [Time] 14.2 s 11.7-14.9 [facility] Pulmonary Visit Reporton Pulmonary Visit Report [facility] [place] [address] [place] [address] OFFICE VISIT Date of Service: 10/07/24 MR#: [id number] Acct: [id number] Name: KRYSTYNA PADGETT Rep #: [id number] : 1955 Provider: MIKAYLA Ruiz Age/Sex: 69/M [place] [facility] Status: Signed Assessment and Plan Assessment and [...] field Plan Details Follow Up: 2 Weeks ([facility]) HPI Discuss CT Chief Complaint: [...] Reasons: Discuss CT Chief Complaint: F/u MARIELENA Campaign Advisor Required: No DME Vendor: Alexi Accompanied by: [...] 25 mg (more content not included)... Normal [facility] aPTT Coag (PPP) [Time]Ordere d By: Cathy Ruiz on 10-07-2024 aPTT Coag (Bld) [Time] 32.2 s 24.1-36.[address] [facility] [address] ANGIOGRAPHY CHEST W/CONTR Torsten 10-01-2024 [...] 10/01/2024 1:06:02 PM Ordering Provider: MANASA Rahman [facility] .Auto Diffon 08-23-2024 Basophil, Absolute 0.0 10 3/mcL Normal 0.0-0.2 [facility] Comment on above: Performed By: #### A DIFF, PSA, ANEU, CBC, A1C, GFR, CMP, URIC, LIPID #### [facility] [address] [place], [place] [address] #### HCV1 #### [facility] [address] [place] [address] Basophils/100 WBC (Bld) 0.4 % Normal 0.0-2.5 [facility] Comment on above: Performed By: #### A DIFF, PSA, ANEU, CBC, A1C, GFR, CMP, URIC, LIPID #### [place] [address] #### HCV1 #### [address] [address] Eosinophil, Absolute 0.1 10 3/mcL Normal 0.0-0.7 [facility] Comment on above: Performed By: #### A DIFF, PSA, ANEU, CBC, A1C, GFR, CMP, URIC, LIPID #### [place] [address] #### HCV1 #### [address] [address] Eosinophils/100 WBC (Bld) 1.2 % Normal 0.0-7.0 [facility] Comment on above: Performed By: #### A DIFF, PSA, ANEU, CBC, A1C, GFR, CMP, URIC, LIPID #### [place] [address] #### HCV1 #### [address] [address] Lymphocyte, Absolute 1.3 10 3/mcL Normal 0.9-4.3 [facility] Comment on above: Performed By: #### A DIFF, PSA, ANEU, CBC, A1C, GFR, CMP, URIC, LIPID #### [place] [address] #### HCV1 #### [address] [address] Lymphocytes/100 WBC (Bld) 15.2 % Low 20.0-40.0 [facility] Comment on above: Performed By: #### A DIFF, PSA, ANEU, CBC, A1C, GFR, CMP, URIC, LIPID #### [place] [address] #### HCV1 #### [address] [address] Monocyte, Absolute 0.6 10 3/mcL Normal 0.1-1.4 [facility] Comment on above: Performed By: #### A DIFF, PSA, ANEU, CBC, A1C, GFR, CMP, URIC, LIPID #### [address] [address] #### HCV1 #### [address] [address] Monocytes/100 WBC (Bld) 6.6 % Normal 2.0-13.0 [facility] Comment on above: Performed By: #### A DIFF, PSA, ANEU, CBC, A1C, GFR, CMP, URIC, LIPID #### [address] [address] #### HCV1 #### [address] [address] Neutrophils/100 WBC (Bld) 76.6 % High 50.0-75.0 [facility] Comment on above: Performed By: #### A DIFF, PSA, ANEU, CBC, A1C, GFR, CMP, URIC, LIPID #### [address] [address] #### HCV1 #### [address] [address] .GFRon 08-23-2024 Estimated Glomerular Filtration Rate 96 ml/min/1.73sqm Normal [facility] Comment on above: Result Comment: Stages [...] CBC, A1C, GFR, CMP, URIC, LIPID #### [address] [address] #### HCV1 #### [address] [address] .NEUABSon 08-23-2024 Neutrophil, Absolute 6.4 10 3/mcL Normal 2.3-8.1 [facility] Comment on above: Performed By: #### A DIFF, PSA, ANEU, CBC, A1C, GFR, CMP, URIC, LIPID #### [address] [address] #### HCV1 #### [place] [address] A1Con 08-23-2024 Glucose [Mass/Vol] 114 mg/dL Normal [facility] Comment on above: Order Comment: cc re sults to cardiology ([place]) Dr. Hawk Result Comment: Radha mated Average Glucose calculated by equation ((28.7xA1C)-46.7) Estimated average glucose (eAG) is a calculated value from Hemoglobin A1C and is marketing development representative of the average blood glucose level in the last 2-3 month period. Normal range: less than 114 mg/dL Performed By: #### A DIFF, PSA, ANEU, CBC, A1C, GFR, CMP, URIC, LIPID #### [address] [address] [address] #### HCV1 #### [place] [address] HbA1c (Bld) [Mass fraction] 5.6 % Normal 4.3-6.4 [facility] Comment on above: Order Comment: cc re sults to cardiology ([place]) Dr. Hawk Performed By: #### A DIFF, PSA, ANEU, CBC, A1C, GFR, CMP, URIC, LIPID #### [address] [address] #### HCV1 #### [place] [address] CBCon 08-23-2024 Erythrocyte distribution width (RBC) [Ratio] 14.5 % Normal 11.5-15.5 [facility] Comment on above: Order Comment: cc re sults to cardiology ([place]) Dr. Hawk Performed By: #### A DIFF, PSA, ANEU, CBC, A1C, GFR, CMP, URIC, LIPID #### [address] [address] #### HCV1 #### [place] [address] Hematocrit (Bld) [Volume fraction] 42.3 % Normal 40.0-52.0 [facility] Comment on above: Order Comment: cc re sults to cardiology ([place]) Dr. Hawk Performed By: #### A DIFF, PSA, ANEU, CBC, A1C, GFR, CMP, URIC, LIPID #### [address] [address] #### HCV1 #### [place] [address] Hgb 14.4 G/dL Normal 13.0-17.5 [facility] Comment on above: Order Comment: cc re sults to cardiology ([place]) Dr. Hawk Performed By: #### A DIFF, PSA, ANEU, CBC, A1C, GFR, CMP, URIC, LIPID #### [place] [address] #### HCV1 #### [place] [address] MCH (RBC) [Entitic mass] 30.0 pg Normal 27.0-33.0 [facility] Comment on above: Order Comment: cc re sults to cardiology ([place]) Dr. Hawk Performed By: #### A DIFF, PSA, ANEU, CBC, A1C, GFR, CMP, URIC, LIPID #### [place] [address] #### HCV1 #### [place] [address] MCHC 34.0 G/dL Normal 32.0-36.0 [facility] Comment on above: Order Comment: cc re sults to cardiology ([place]) Dr. Hawk Performed By: #### A DIFF, PSA, ANEU, CBC, A1C, GFR, CMP, URIC, LIPID #### [place] [address] #### HCV1 #### [address] [address] MCV (RBC) [Entitic vol] 88.5 fL Normal 81.0-100.0 [facility] Comment on above: Order Comment: cc re sults to cardiology ([place]) Dr. Hawk Performed By: #### A DIFF, PSA, ANEU, CBC, A1C, GFR, CMP, URIC, LIPID #### [address] [address] #### HCV1 #### [address] [address] Platelet 213 10 3/mcL Normal 150-450 [facility] Comment on above: Order Comment: cc re sults to cardiology ([place]) Dr. Hawk Performed By: #### A DIFF, PSA, ANEU, CBC, A1C, GFR, CMP, URIC, LIPID #### [address] [address] #### HCV1 #### [place] [address] Platelet mean volume (Bld) [Entitic vol] 9.3 fL Normal 6.4-10.5 [facility] Comment on above: Order Comment: cc re sults to cardiology ([place]) Dr. Hawk Performed By: #### A DIFF, PSA, ANEU, CBC, A1C, GFR, CMP, URIC, LIPID #### [address] [address] #### HCV1 #### [place] [address] RBC 4.79 10 6/mcL Normal 4.50-6.00 [facility] Comment on above: Order Comment: cc re sults to cardiology ([place]) Dr. Hawk Performed By: #### A DIFF, PSA, ANEU, CBC, A1C, GFR, CMP, URIC, LIPID #### [address] [address] #### HCV1 #### [place] [address] WBC 8.4 10 3/mcL Normal 4.5-10.8 [facility] Comment on above: Order Comment: cc re sults to cardiology ([place]) Dr. Hawk Performed By: #### A DIFF, PSA, ANEU, CBC, A1C, GFR, CMP, URIC, LIPID #### [address] [address] #### HCV1 #### [address] [address] CMPon 08-23-2024 Albumin Level 3.8 G/dL Normal 3.4-4.8 [facility] Comment on above: Order Comment: cc re sults to cardiology ([place]) Dr. Hawk Performed By: #### A DIFF, PSA, ANEU, CBC, A1C, GFR, CMP, URIC, LIPID #### [address] [address] #### HCV1 #### [address] [address] Albumin/Globulin [Mass ratio] 1.1 {ratio} Normal 1.1-2.5 [facility] Comment on above: Order Comment: re sults to cardiology ([place]) Dr. Hawk Performed By: #### A DIFF, PSA, ANEU, CBC, A1C, GFR, CMP, URIC, LIPID #### [address] [address] #### HCV1 #### [address] [address] ALP [Catalytic activity/Vol] 71 U/L Normal 40-135 [facility] Comment on above: Order Comment: re sults to cardiology ([place]) Dr. Hawk Performed By: #### A DIFF, PSA, ANEU, CBC, A1C, GFR, CMP, URIC, LIPID #### [address] [address] #### HCV1 #### [address] [address] ALT [Catalytic activity/Vol] 21 U/L Normal 16-63 [facility] Comment on above: Order Comment: cc re sults to cardiology ([place]) Dr. Hawk Performed By: #### A DIFF, PSA, ANEU, CBC, A1C, GFR, CMP, URIC, LIPID #### [address] [address] #### HCV1 #### [address] [address] AST [Catalytic activity/Vol] 15 U/L Normal 10-40 [facility] Comment on above: Order Comment: re sults to cardiology ([place]) Dr. Hawk Performed By: #### A DIFF, PSA, ANEU, CBC, A1C, GFR, CMP, URIC, LIPID #### [address] [address] #### HCV1 #### [place] [address] Bili Total 1.0 mg/dL Normal 0.2-1.0 [facility] Comment on above: Order Comment: re sults to cardiology ([place]) Dr. Hawk Result Comment: Use of this assay is not recommended for patients undergoing treatment with eltrombopag due to the potential for falsely elevated results. Performed By: #### A DIFF, PSA, ANEU, CBC, A1C, GFR, CMP, URIC, LIPID #### [place] [address] #### HCV1 #### [place] [address] BUN/Creatinine Ratio 26 ratio Normal 7-27 [facility] Comment on above: Order Comment: re sults to cardiology ([place]) Dr. Hawk Performed By: #### A DIFF, PSA, ANEU, CBC, A1C, GFR, CMP, URIC, LIPID #### [address] [address] #### HCV1 #### [place] [id number] Calcium [Mass/Vol] 9.4 mg/dL Normal 8.4-10.2 [facility] Comment on above: Order Comment: re sults to cardiology ([place]) Dr. Hawk Performed By: #### A DIFF, PSA, ANEU, CBC, A1C, GFR, CMP, URIC, LIPID #### [address] [address] #### HCV1 #### [place] [address] Chloride [Moles/Vol] 104 mmol/L Normal 98-107 [facility] Comment on above: Order Comment: cc re sults to cardiology ([place]) Dr. Hawk Performed By: #### A DIFF, PSA, ANEU, CBC, A1C, GFR, CMP, URIC, LIPID #### [place] [address] #### HCV1 #### [place] [address] CO2 [Moles/Vol] 34 mmol/L High 23-31 [facility] Comment on above: Order Comment: re sults to cardiology ([place]) Dr. Hawk Performed By: #### A DIFF, PSA, ANEU, CBC, A1C, GFR, CMP, URIC, LIPID #### [place] [address] #### HCV1 #### [place] [address] Creatinine [Mass/Vol] 0.81 mg/dL Normal 0.70-1.30 [facility] Comment on above: Order Comment: cc re sults to cardiology ([place]) Dr. Hawk Result Comment: Test ing performed on Siemens Dimension EXL analyzer using a modified kinetic Shahana technique. Performed By: #### A DIFF, PSA, ANEU, CBC, A1C, GFR, CMP, URIC, LIPID #### [place] [address] #### HCV1 #### [place] [address] Electrolyte Balance 2.0 mEq/L Low 4.0-15.0 [facility] Comment on above: Order Comment: re sults to cardiology ([place]) Dr. Hawk Performed By: #### A DIFF, PSA, ANEU, CBC, A1C, GFR, CMP, URIC, LIPID #### [place] [address] #### HCV1 #### [address] [address] Globulin 3.4 G/dL Normal 1.5-3.8 [facility] Comment on above: Order Comment: cc re sults to cardiology ([place]) Dr. Hawk Performed By: #### A DIFF, PSA, ANEU, CBC, A1C, GFR, CMP, URIC, LIPID #### [address] [address] #### HCV1 #### [address] [address] Glucose [Mass/Vol] 89 mg/dL Normal 80-115 [facility] Comment on above: Order Comment: cc re sults to cardiology ([place]) Dr. Hawk Performed By: #### A DIFF, PSA, ANEU, CBC, A1C, GFR, CMP, URIC, LIPID #### [address] [address] #### HCV1 #### [address] [address] Potassium [Moles/Vol] 3.6 mmol/L Normal 3.5-5.1 [facility] Comment on above: Order Comment: cc re sults to cardiology ([place]) Dr. Hawk Performed By: #### A DIFF, PSA, ANEU, CBC, A1C, GFR, CMP, URIC, LIPID #### [address] [address] #### HCV1 #### [address] [address] Sodium [Moles/Vol] 140 mmol/L Normal 136-145 [facility] Comment on above: Order Comment: cc re sults to cardiology ([place]) Dr. Hawk Performed By: #### A DIFF, PSA, ANEU, CBC, A1C, GFR, CMP, URIC, LIPID #### [address] [address] #### HCV1 #### [address] [address] Total Protein 7.2 G/dL Normal 6.4-8.2 [facility] Comment on above: Order Comment: cc re sults to cardiology ([place]) Dr. Hawk Performed By: #### A DIFF, PSA, ANEU, CBC, A1C, GFR, CMP, URIC, LIPID #### [address] [address] #### HCV1 #### [place] [address] Urea nitrogen [Mass/Vol] 21 mg/dL High 7-18 [facility] Comment on above: Order Comment: cc re sults to cardiology ([place]) Dr. Hawk Performed By: #### A DIFF, PSA, ANEU, CBC, A1C, GFR, CMP, URIC, LIPID #### [address] [address] #### HCV1 #### [place] [address] HCVon 08-23-2024 Hep C Ab Non-Reactive Normal Non-Reactiv e [facility] Comment on above: Order Comment: cc re sults to cardiology ([place]) Dr. Hawk Performed By: #### A DIFF, PSA, ANEU, CBC, A1C, GFR, CMP, URIC, LIPID #### [address] [address] #### HCV1 #### [place] [address] Hep C Ab Int Normal [facility] Comment on above: Order Comment: cc re sults to cardiology ([place]) Dr. Hawk Result Comment: Nonr eactive: Samples [...] CBC, A1C, GFR, CMP, URIC, LIPID #### [address] [address] #### HCV1 #### [place] [address] LABORATORYOrdered By: SYSTEM SYSTEM on 08-23-2024 Albumin [...] calculated value from Hemoglobin A1C and is marketing development representative of the average blood glucose level [...] 08-23-2024 Cholesterol [Mass/Vol] 190 mg/dL Normal 0-200 [facility] Comment on above: Order Comment: rosas brown to cardiology ([place]) Dr. Hawk Result Comment: Chol esterol Reference Interval: Less than 200 Desirable 200-239 Borderline high risk 240 and above High risk Performed By: #### A DIFF, PSA, ANEU, CBC, A1C, GFR, CMP, URIC, LIPID #### [address] [address] #### HCV1 #### [address] [address] Cholesterol in HDL [Mass/Vol] 75 mg/dL High 40-60 [facility] Comment on above: Order Comment: rosas brown to cardiology ([place]) Dr. Hawk Performed By: #### A DIFF, PSA, ANEU, CBC, A1C, GFR, CMP, URIC, LIPID #### [address] [address] #### HCV1 #### [address] [address] Cholesterol in LDL [Mass/Vol] 102 mg/dL Normal 0-130 [facility] Comment on above: Order Comment: rosas brown to cardiology ([place]) Dr. Hawk Performed By: #### A DIFF, PSA, ANEU, CBC, A1C, GFR, CMP, URIC, LIPID #### [address] [address] #### HCV1 #### [address] [address] Triglyceride [Mass/Vol] 65 mg/dL Normal 0-150 [facility] Comment on above: Order Comment: cc re sults to cardiology ([place]) Dr. Hawk Result Comment: Trig lyceride Reference Interval: Less than 150 Normal 150-199 Borderline high risk 200-499 High risk 500 or higher Very high risk Performed By: #### A DIFF, PSA, ANEU, CBC, A1C, GFR, CMP, URIC, LIPID #### [address] [address] #### HCV1 #### [place] [address] PSAon 08-23-2024 Prostate Specific Antigen 1.95 ng/mL Normal 0.00-4.00 [facility] Comment on above: Order Comment: cc re sults to urology ([place]) Dr. Osman Performed By: #### A DIFF, PSA, ANEU, CBC, A1C, GFR, CMP, URIC, LIPID #### [address] [address] #### HCV1 #### [place] [address] URICon 08-23-2024 Uric Acid Lvl 6.8 mg/dL Normal 3.5-7.2 [facility] Comment on above: Order Comment: cc sarah sults to cardiology ([place]) Dr. Hawk Performed By: #### A DIFF, PSA, ANEU, CBC, A1C, GFR, CMP, URIC, LIPID #### [address] [address] #### HCV1 #### [place] [address] Emergency Department Summary on 07-02-2024 Emergency Department Summary [facility] Medical Records Department [address] [place] [address] Emergency Department Summary 07/02/24 MR#: [id number] Acct: [id number] Name: KRYSTYNA PADGETT Rep #: [id number] : 1955 69 From: Behzad Rivera DO [...] is not a diabetic. No reported fevers. [facility] Medical History Intermittent palpitations Diminished pulses in lower extremity MARIELENA (obstructive sleep apnea) Chest pain Atrial fibrillation Fatigue Lung nodule, solitary Essential hypertension Dyspnea Obesity Bilateral kidney stones Hydronephrosis HLD (hyperlipidemia) PVCs (premature ventricular contractions) Atherosclerotic heart disease of [place] coronary artery without angina pectoris Sinus bradycardia [...] well developed (more content not included)... Normal [facility] Pulmonary Visit Reporton Pulmonary Visit Report [facility] [place] [address] [place] [address] OFFICE VISIT Date of Service: 06/21/24 MR#: [id number] Acct: [id number] Name: KRYSTYNA PADGETT Rep #: [id number] : 1955 Provider: MIKAYLA Ruiz Age/Sex: 69/M [place] [facility] Status: Signed with Addenda ADDENDUM by Aileen Murillo on 06/21/24 at 1230 Office Procedure Documentation entered by Aileen Murillo 06/21/24 12:30: Immunizations Fluad Triv (65y up)(PF) 45 mcg (15 mcg x 3)/0.5 mL IM syringe Performing Provider: Cathy Ruiz INSTALLATION HELPER, MIKAYLA Performing Location: [place] [facility] Administered by: Aileen Murillo on 06/21/24 12:20 Dose Route Admin Location Dispensed Lot Number Expiration Date [facility] Man ufacturer 45 mcg IM Left Deltoid 0.5 mL [id number] 10/26/24 19013-221-12 Master Route, [employer]. VIS Given Date VIS Provided VIS Publication [...] mcg x 3)/0.5 mL (flu vac 2023 [id number](PF)) 45 mcg IM ONCE 0.5 mL 0RF NS Z23 - Encounter for immunization Plan Details Follow Up: 6 Months ([facility]) HPI 5 m fu Chief [...] 5 m fu Chief Complaint: F/u MARIELENA Campaign Advisor Required: No DME Vendor: [employer] Accompanied by: Self Is patient in pain?: [...] #90 tabs (more content not included)... Normal [facility] Chest without Contraston Chest without Contrast [facility] Imaging Services [address] [place] [address] Chest without Contrast MR#: [id number] Acct: [id number] Name: KRYSTYNA PADGETT Rep #: [id number] : 1955 M 68 From: Jensen Leung MD PCP: Dr. Manasa Zendejas, DO Status: [facility] Study: Chest without Contrast Date of Exam: 05/22/24 Exam# [id number] Ordering Dr: Cathy Ruiz INSTALLATION HELPER INSTALLATION HELPER-C [id number] INDICATION: follow nodule EXAMINATION: CT CHEST WITHOUT [...] CC: MIKAYLA Ruiz; Dr. Manasa Zendejas DO Eight Arm Operator: Signed Normal [facility] Echo Complete W/ Contraston 01-31-2024 Echo Complete W/ Contrast [facility] Cardiovascular Services [address] [place] [address] Echo Complete W/ Contrast 01/31/24 0833 MR#: [id number] Acct: [id number] Name: KRYSTYNA PADGETT Rep #: [id number] : 1955 68 From: Donn Hawk MD Attending Dr: Dr. Donn Hawk MD Status: REG CLI Ordering Dr: Donn Hawk MD Date: 01/31/24 Location: [facility] Sex: M C Admitted: Reason For [...] Date Dictated: 01/31/24832 Date Transcribed: 01/31/24 105 Eight Arm Operator: Signed Normal [facility] Stress Reporton 01-31-2024 Stress Report [facility] Cardiovascular Services [address] [place] [address] MR#: [id number] Acct: [id number] Name: KRYSTYNA PADGETT Rep #: [id number] : 1955 68 From: Donn Hawk MD [...] of 64%. This note was generated with Bnook[employer] software. It may contain incorrect words, spelling, and punctuation that were not noted in checking the note before signing. 01/31/24 1252 Date Donn Hawk MD CC: Dr. Donn Hawk MD; Dr. Manasa Zendejas DO Date Dictated: 01/31/24 1251 Date Transcribed: 01/31/24 125 Eight Arm Operator: MT Signed Normal [facility] Pulmonary Visit Reporton Pulmonary Visit Report [facility] Pulmonary Medicine of [address] [place] [address] OFFICE VISIT Date of Service: 01/18/24 MR#: [id number] Acct: [id number] Name: KRYSTYNA PADGETT #: [id number] : 1955 Provider: MIKAYLA Ruiz Age/Sex: 68/M Location[place] [facility] Status: Signed Assessment and Plan Assessment and [...] pulmonary nodule Plan Details Follow Up: 06/09/24 ([facility]) HPI 4 M FU Chief [...] 4 M FU Chief Complaint: F/u MARIELENA Campaign Advisor Required: No DME Vendor: [employer] Accompanied by: [...] you fallen in the past year?: No [facility] Medical History Intermittent palpitations Diminished pulses in lower extremity MARIELENA (obstructive sleep apnea) Chest pain Atrial fibrillation Fatigue Lung nodule, solitary [place] (more content not included)... Normal [facility] CT THORAX W/O CONTRASTon CT THORAX [...] 08/16/2023 3:06:39 PM Ordering Provider: MANASA Rahman [facility] ([place]) .Auto Diffon 08-14-2023 Basophil, Absolute 0.0 10 3/mcL Normal 0.0-0.2 [facility] ([place]) Comment on above: Performed By: #### U RICCO, LIPID, A1C, ADIFF, CBC, ANEU, CMP, GFR #### [address] [address] Basophils/100 WBC (Bld) 0.3 % Normal 0.0-2.5 [facility] ([place]) Comment on above: Performed By: #### U RICCO, LIPID, A1C, ADIFF, CBC, ANEU, CMP, GFR #### [address] [address] Eosinophil, Absolute 0.0 10 3/mcL Normal 0.0-0.4 [facility] ([place]) Comment on above: Performed By: #### U RICCO, LIPID, A1C, ADIFF, CBC, ANEU, CMP, GFR #### [address] [address] Eosinophils/100 WBC (Bld) 0.4 % Normal 0.0-7.0 [facility] ([place]) Comment on above: Performed By: #### U RICCO, LIPID, A1C, ADIFF, CBC, ANEU, CMP, GFR #### [address] [address] Lymphocyte, Absolute 1.2 10 3/mcL Normal 0.8-3.9 [facility] ([place]) Comment on above: Performed By: #### U RICCO, LIPID, A1C, ADIFF, CBC, ANEU, CMP, GFR #### [address] [address] Lymphocytes/100 WBC (Bld) 10.2 % Normal 10.0-50.0 [facility] ([place]) Comment on above: Performed By: #### U RICCO, LIPID, A1C, ADIFF, CBC, ANEU, CMP, GFR #### [address] [address] Monocyte, Absolute 0.6 10 3/mcL Normal 0.2-1.0 [facility] ([place]) Comment on above: Performed By: #### U RICCO, LIPID, A1C, ADIFF, CBC, ANEU, CMP, GFR #### [address] [address] Monocytes/100 WBC (Bld) 5.0 % Normal 1.7-13.0 [facility] ([place]) Comment on above: Performed By: #### U RICCO, LIPID, A1C, ADIFF, CBC, ANEU, CMP, GFR #### [address] [address] Neutrophils/100 WBC (Bld) 84.1 % High 37.0-80.0 [facility] ([place]) Comment on above: Performed By: #### U RICCO, LIPID, A1C, ADIFF, CBC, ANEU, CMP, GFR #### [address] [address] .GFRon 08-14-2023 GFR Non- 85 ml/min/1.73sqm Normal [facility] ([place]) Comment on above: Result Comment: GFR Population [...] A1C, ADIFF, CBC, ANEU, CMP, GFR #### [address] [address] GFR 103 ml/min/1.73sqm Normal [facility] ([place]) Comment on above: Result Comment: GFR Population [...] A1C, ADIFF, CBC, ANEU, CMP, GFR #### [address] [address] .NEUABSon 08-14-2023 Neutrophil, Absolute 9.6 10 3/mcL High 2.9-6.2 [facility] ([place]) Comment on above: Performed By: #### U RICCO, LIPID, A1C, ADIFF, CBC, ANEU, CMP, GFR #### [address] [address] A1Con 08-14-2023 HbA1c (Bld) [Mass fraction] 5.4 % Normal 4.3-6.4 [facility] ([place]) Comment on above: Order Comment: rosas brown to Dr. [facility] Performed By: #### U RICCO, LIPID, A1C, ADIFF, CBC, ANEU, CMP, GFR #### [address] [address] CBCon 08-14-2023 Erythrocyte distribution width (RBC) [Ratio] 13.8 % Normal 11.5-14.5 [facility] ([place]) Comment on above: Order Comment: rosas brown to [facility]. [facility] Performed By: #### U RICCO, LIPID, A1C, ADIFF, CBC, ANEU, CMP, GFR #### [place] [address] Hematocrit (Bld) [Volume fraction] 43.9 % Normal 42.0-52.0 [facility] ([place]) Comment on above: Order Comment: rosas brown to [facility]. [facility] Performed By: #### U RICCO, LIPID, A1C, ADIFF, CBC, ANEU, CMP, GFR #### [place] [address] Hgb 15.0 G/dL Normal 14.0-18.0 [facility] ([place]) Comment on above: Order Comment: rosas brown to [facility] Performed By: #### U RICCO, LIPID, A1C, ADIFF, CBC, ANEU, CMP, GFR #### [place] [address] MCH (RBC) [Entitic mass] 30.3 pg Normal 27.0-31.2 [facility] ([place]) Comment on above: Order Comment: rosas brown to [facility]. [facility] Performed By: #### U RICCO, LIPID, A1C, ADIFF, CBC, ANEU, CMP, GFR #### [place] [address] MCHC 34.1 G/dL Normal 31.8-35.4 [facility] ([place]) Comment on above: Order Comment: rosas brown to [facility]. [facility] Performed By: #### U RICCO, LIPID, A1C, ADIFF, CBC, ANEU, CMP, GFR #### [place] [address] MCV (RBC) [Entitic vol] 88.9 fL Normal 80.0-94.0 [facility] ([place]) Comment on above: Order Comment: rosas brown to Dr. [facility] Performed By: #### U RICCO, LIPID, A1C, ADIFF, CBC, ANEU, CMP, GFR #### [address] [address] Platelet 199 10 3/mcL Normal 130-400 [facility] ([place]) Comment on above: Order Comment: rosas brown to [facility] Performed By: #### U RICCO, LIPID, A1C, ADIFF, CBC, ANEU, CMP, GFR #### [address] [address] Platelet mean volume (Bld) [Entitic vol] 9.4 fL Normal 7.4-10.4 [facility] ([place]) Comment on above: Order Comment: rosas brown to [facility] Performed By: #### U RICCO, LIPID, A1C, ADIFF, CBC, ANEU, CMP, GFR #### [address] [address] RBC 4.94 10 6/mcL Normal 4.04-6.13 [facility] ([place]) Comment on above: Order Comment: rosas brown to [facility]. [facility] Performed By: #### U RICCO, LIPID, A1C, ADIFF, CBC, ANEU, CMP, GFR #### [address] [address] WBC 11.4 10 3/mcL High 4.6-10.8 [facility] ([place]) Comment on above: Order Comment: rosas brwon to Dr. [facility] Performed By: #### U RICCO, LIPID, A1C, ADIFF, CBC, ANEU, CMP, GFR #### [address] [address] CMPon 08-14-2023 Albumin Level 3.6 G/dL Normal 3.4-4.8 [facility] ([place]) Comment on above: Order Comment: rosas brown to Dr. [facility] Performed By: #### U RICCO, LIPID, A1C, ADIFF, CBC, ANEU, CMP, GFR #### [address] [address] Albumin/Globulin [Mass ratio] 1.0 {ratio} Low 1.1-2.5 [facility] ([place]) Comment on above: Order Comment: rosas brown to Dr. [facility] Performed By: #### U RICCO, LIPID, A1C, ADIFF, CBC, ANEU, CMP, GFR #### [address] [address] ALP [Catalytic activity/Vol] 78 U/L Normal 40-135 [facility] ([place]) Comment on above: Order Comment: rosas brown to [facility]. [facility] Performed By: #### U RICCO, LIPID, A1C, ADIFF, CBC, ANEU, CMP, GFR #### [address] [address] ALT [Catalytic activity/Vol] 30 U/L Normal 16-63 [facility] ([place]) Comment on above: Order Comment: rosas brown to [facility]. [facility] Performed By: #### U RICCO, LIPID, A1C, ADIFF, CBC, ANEU, CMP, GFR #### [place] [address] AST [Catalytic activity/Vol] 13 U/L Normal 10-40 [facility] ([place]) Comment on above: Order Comment: rosas brown to [facility]. [facility] Performed By: #### U RICCO, LIPID, A1C, ADIFF, CBC, ANEU, CMP, GFR #### [address] [address] Bili Total 1.0 mg/dL Normal 0.2-1.0 [facility] ([place]) Comment on above: Order Comment: rosas brown to Dr. [facility] Result Comment: Use of this assay is not recommended for patients undergoing treatment with eltrombopag due to the potential for falsely elevated results. Performed By: #### U RICCO, LIPID, A1C, ADIFF, CBC, ANEU, CMP, GFR #### [address] [address] BUN/Creatinine Ratio 27 ratio Normal 7-27 [facility] ([place]) Comment on above: Order Comment: rosas brown to Dr. [facility] Performed By: #### U RICCO, LIPID, A1C, ADIFF, CBC, ANEU, CMP, GFR #### [address] [address] Calcium [Mass/Vol] 9.7 mg/dL Normal 8.4-10.2 [facility] ([place]) Comment on above: Order Comment: rosas brown to Dr. Kenn Mark [facility] Performed By: #### U RICCO, LIPID, A1C, ADIFF, CBC, ANEU, CMP, GFR #### [address] [address] Chloride [Moles/Vol] 102 mmol/L Normal 98-107 [facility] ([place]) Comment on above: Order Comment: rosas brown to Dr. Kenn [facility] Performed By: #### U RICCO, LIPID, A1C, ADIFF, CBC, ANEU, CMP, GFR #### [place] [address] CO2 [Moles/Vol] 33 mmol/L High 23-31 [facility] ([place]) Comment on above: Order Comment: rosas brown to Dr. Kenn Mark [facility] Performed By: #### U RICCO, LIPID, A1C, ADIFF, CBC, ANEU, CMP, GFR #### [place] [address] Creatinine [Mass/Vol] 0.89 mg/dL Normal 0.70-1.30 [facility] ([place]) Comment on above: Order Comment: rosas brown to Dr. Kenn Mark [facility] Performed By: #### U RICCO, LIPID, A1C, ADIFF, CBC, ANEU, CMP, GFR #### [address] [address] Electrolyte Balance 9.0 mEq/L Normal 4.0-15.0 [facility] ([place]) Comment on above: Order Comment: rosas brown to Dr. Kenn Mark [facility] Performed By: #### U RICCO, LIPID, A1C, ADIFF, CBC, ANEU, CMP, GFR #### [place] [address] Globulin 3.5 G/dL Normal [facility] ([place]) Comment on above: Order Comment: rosas brown to Dr. Kenn [facility] Performed By: #### U RICCO, LIPID, A1C, ADIFF, CBC, ANEU, CMP, GFR #### [address] [address] Glucose [Mass/Vol] 93 mg/dL Normal 80-115 [facility] ([place]) Comment on above: Order Comment: rosas brown to Dr. Kenn Mark [facility] Performed By: #### U RICCO, LIPID, A1C, ADIFF, CBC, ANEU, CMP, GFR #### [address] [address] Potassium [Moles/Vol] 4.1 mmol/L Normal 3.5-5.1 [facility] ([place]) Comment on above: Order Comment: rosas brown to Dr. Kenn Mark [facility] Performed By: #### U RICCO, LIPID, A1C, ADIFF, CBC, ANEU, CMP, GFR #### [address] [address] Sodium [Moles/Vol] 144 mmol/L Normal 136-145 [facility] ([place]) Comment on above: Order Comment: rosas brown to Dr. Kenn Mark [facility] Performed By: #### U RICCO, LIPID, A1C, ADIFF, CBC, ANEU, CMP, GFR #### [address] [address] Total Protein 7.1 G/dL Normal 6.4-8.2 [facility] ([place]) Comment on above: Order Comment: rosas brown to Dr. Kenn [facility] Performed By: #### U RICCO, LIPID, A1C, ADIFF, CBC, ANEU, CMP, GFR #### [address] [address] Urea nitrogen [Mass/Vol] 24 mg/dL High 7-18 [facility] ([place]) Comment on above: Order Comment: rosas brown to Dr. Kenn [facility] Performed By: #### U RICCO, LIPID, A1C, ADIFF, CBC, ANEU, CMP, GFR #### [address] [place] [address] LIPIDon 08-14-2023 Cholesterol [Mass/Vol] 189 mg/dL Normal 0-200 [facility] ([place]) Comment on above: Order Comment: rosas brown to Dr. Kenn Mark [facility] Result Comment: Chol esterol Reference Interval: Less than 200 Desirable 200-239 Borderline high risk 240 and above High risk Performed By: #### G FR, CRE #### [address] [address] Cholesterol in HDL [Mass/Vol] 74 mg/dL High 40-60 [facility] ([place]) Comment on above: Order Comment: rosas brown to Dr. Kenn [facility] Performed By: #### G FR, CRE #### [place] [address] Cholesterol in LDL [Mass/Vol] 106 mg/dL Normal 0-130 [facility] ([place]) Comment on above: Order Comment: rosas brown to Dr. Kenn [facility] Performed By: #### G FR, CRE #### [address] [address] Triglyceride [Mass/Vol] 45 mg/dL Normal 0-150 [facility] ([place]) Comment on above: Order Comment: rosas brown to Dr. Kenn Mark [facility] Result Comment: Trig lyceride Reference Interval: Less than 150 Normal 150-199 Borderline high risk 200-499 High risk 500 or higher Very high risk Performed By: #### G FR, CRE #### [address] [address] MALBRon 08-14-2023 U Creatinine 69.3 mg/dL Normal 39.0-259.0 [facility] ([place]) Comment on above: Order Comment: rosas brown to Dr. Kenn [facility] Performed By: #### M ALBR #### [address] [address] U Microalb 702 mcg/dL Normal [facility] ([place]) Comment on above: Order Comment: rosas brown to Dr. Kenn [facility] Performed By: #### M ALBR #### [facility] [address] [place], [place] [address] U Ratio Alb/Cre 10 mcg/mg Normal 0-30 [facility] ([place]) Comment on above: Order Comment: rosas brown to Dr. Kenn [facility] Performed By: #### M ALBR #### [facility] [address] [place], [place] [address] URICon 08-14-2023 Uric Acid Lvl 5.4 mg/dL Normal 3.5-7.2 [facility] ([place]) Comment on above: Order Comment: rosas brown to Dr. Kenn [facility] Performed By: #### U RICCO, LIPID, A1C, ADIFF, CBC, ANEU, CMP, GFR #### [place] [id number] [place], [place] [address] No Panel InformationOrdered By: Rocio Jara on 04-24-2023 Prostate Specific Antigen Total 1.51 ng/mL 0.0-4.0 [facility] Comment on above: This test was perfor med using the TPSA assay method for [employer] chemistry system. Values obtained with differentassay methods [...] 02/27/2023 10:13:40 AM Ordering Provider: MANASA ZENDEJAS [facility] ([place]) .GFRon 02-24-2023 GFR 94 ml/min/1.73sqm Normal [facility] ([place]) Comment on above: Result Comment: GFR Population [...] Performed By: #### G , CRE #### [address] [address] GFR Non- 77 ml/min/1.73sqm Normal [facility] ([place]) Comment on above: Result Comment: GFR Population [...] By: #### G FR, CRE #### [place] [address] [address] CREon 02-24-2023 Creatinine [Mass/Vol] 0.97 mg/dL Normal 0.70-1.30 [facility] ([place]) Comment on above: Performed By: #### G , CRE #### [address] [address] LABORATORYOrdered By: SYSTEM SYSTEM on 02-24-2023 Creatinine [...] Auto (Unsp spec) [#/Vol] 0.84 10*3/uL 0.83-4.51 [facility] Basophil percentageOrdered B y: Dr. Singh on 10-16-2022 Basophils/100 WBC (Bld) 0.2 % 0-1 [facility] Chloride [Moles/Vol] 106 mmol/L 98-107 [facility] Eosinophils/100 WBC (Bld) 1.6 % 0-5 [facility] Glucose [Mass/Vol] 117 mg/dL 74-106 [facility] Comment on above: Fasting Glucose resu lt from 100 to 125 mg/dL suggests IMPAIRED HOMEOSTASIS per A.D.A. criteria. Neutrophils (Bld) [#/Vol] 4.2 10*3/uL 2.0-7.7 [facility] Neutrophils/100 WBC (Bld) 74.0 % 47-70 [facility] Potassium [Moles/Vol] 3.5 mmol/L 3.5-5.1 [facility] Sodium [Moles/Vol] 138 mmol/L 136-145 [facility] WBC (Bld) [#/Vol] 5.6 10*3/uL 4.4-11.0 [facility] Basophil percentageOrdered B y: ED PROVIDER on 10-16-2022 Basophil percentage 0-5 SEEN /hpf 0-5 [facility] Bilirubin Test strip Ql (U)O rdered By: ED PROVIDER on 10-16-2022 Bilirubin Ql (U) Negative Negative [facility] Blood erythrocytes count (nu mber/volume)Ordered By: Dr. Singh on 10-16-2022 RBC (Bld) [#/Vol] 4.50 10*6/uL 4.6-6.2 [facility] Blood hemoglobin measurement (mass/volume)Ordered By: Dr. Singh on 10-16-2022 Hemoglobin (Bld) [Mass/Vol] 13.4 g/dL 13.0-16.5 [facility] Blood lymphocytes/100 leukoc ytesOrdered By: Dr. Singh on 10-16-2022 Lymphocytes/100 WBC (Bld) 14.9 % 19-41 [facility] Blood monocytes/100 leukocyt esOrdered By: Dr. Singh on 10-16-2022 Monocytes/100 WBC (Bld) 8.9 % 0-[address] [facility] Blood platelet mean volumeOr dered By: Dr. Singh on 10-16-2022 Platelet mean volume (Bld) [Entitic vol] 11.7 fL 6.2-12.0 [facility] Determination of erythrocyte mean corpuscular volume (MCV)Ordered By: Dr. Singh on 10-16-2022 MCV (RBC) [Entitic vol] 92.0 fL 80-[address] [facility] Hematocrit Auto (Bld) [Volum e fraction]Ordered By: Dr. Singh on 10-16-2022 Hematocrit (Bld) [Volume fraction] 41.4 % 40-54 [facility] Ketones Test strip Ql (U)Ord ered By: ED PROVIDER on 10-16-2022 Ketones Ql (U) Negative Negative [facility] Laboratory - Chemistry and C hemistry - challengeOrdered By: Dr. Singh on 10-16-2022 CO2 [Moles/Vol] 29.0 mmol/L 21.0-32.0 [facility] Urea nitrogen/Creatinine [Mass ratio] 27.1 mg/mg 10-20 [facility] Laboratory - Hematology and Cell countsOrdered By: Dr. Singh on 10-16-2022 Erythrocyte distribution width (RBC) [Entitic vol] 48.7 fL 35.1-43.9 [facility] Erythrocyte distribution width (RBC) [Ratio] 14.4 % 11.6-14.6 [facility] Immature granulocytes/100 WBC (Bld) 0.400 % 0.0-0.9 [facility] Comment on above: IG% - Immature Granu locytes (promyelocytes, myelocytes and metamyelocytes) > 1% indicates that a LEFT SHIFT is Present. MCH (RBC) [Entitic mass] 29.8 pg 27.0-32.0 [facility] Nucleated RBC/100 WBC (Bld) [Ratio] 0 % 0-5 [facility] MCHC Auto (RBC) [Mass/Vol]Or dered By: Dr. Singh on 10-16-2022 MCHC (RBC) [Mass/Vol] 32.4 g/dL 32-36 [facility] Mucus LM Ql (Urine sed)Order ed By: ED PROVIDER on 10-16-2022 Mucus Ql (Urine sed) 0 SEEN /hpf [facility] Nitrite Test strip Ql (U)Ord ered By: ED PROVIDER on 10-16-2022 Nitrite Ql (U) Negative Negative [facility] No Panel InformationOrdered By: Dr. Singh on 10-16-2022 Estimated Creatinine Clearance Calc 73.68 ml/min [facility] Estimated GFR (MDRD) Amer 110 mL/min >60 [facility] Comment on above: GFR Calc Estimated GFR (MDRD) Non-Af Amer 91 mL/min >60 [facility] Comment on above: Non- GFR Calc Platelets bldOrdered By: Dr. Singh on 10-16-2022 Platelets (Bld) [#/Vol] 163 10*3/uL 150-450 [facility] Protein Test strip Ql (U)Ord ered By: ED PROVIDER on 10-16-2022 Protein Ql (U) 15 mg/dl Negative [facility] Serum or plasma calcium nallely urement (mass/volume)Ordered By: Dr. Singh on 10-16-2022 Calcium [Mass/Vol] 8.6 mg/dL 8.5-10.1 [facility] Serum or plasma creatinine m easurement (mass/volume)Ordered By: Dr. Singh on 10-16-2022 Creatinine [Mass/Vol] 0.89 mg/dL 0.70-1.30 [facility] Comment on above: The validity of the calculated GFR & GFRAA in patients over 70 years has not been determined. Clinical correlation is essential. Serum or plasma urea nitroge n measurement (mass/volume)Ordered By: Dr. Singh on 10-16-2022 Urea nitrogen [Mass/Vol] 24 mg/dL 7-18 [facility] Squamous epithelial cells de tection in urine sediment by light microscopyOrdered By: ED PROVIDER on 10-16-2022 Epithelial cells.squamous LM Ql (Urine sed) 0 SEEN /hpf 0-5 [facility] Thin prep Papanicolaou smear with manual screeningOrdered By: Dr. Singh on 10-16-2022 Thin prep Papanicolaou smear with manual screening 3 5-15 [facility] Urine blood detectionOrdered By: ED PROVIDER on 10-16-2022 RBC Ql (U) 50 /ul Negative [facility] RBC Ql (U) 0 SEEN /hpf 0-5 [facility] Urine clarityOrdered By: ED PROVIDER on 10-16-2022 Clarity (U) Clear Clear [facility] Urine color determinationOrd ered By: ED PROVIDER on 10-16-2022 Color (U) Yellow Yellow [facility] Urine glucose detectionOrder ed By: ED PROVIDER on 10-16-2022 Glucose Ql (U) Normal mg/dl Normal [facility] Urine leukocyte esterase det ection by dipstickOrdered By: ED PROVIDER on 10-16-2022 Leukocyte esterase Test strip Ql (U) 25 /ul Negative [facility] Urine pHOrdered By: ED PROVI TERESA on 10-16-2022 pH (U) 5.0 [pH] 5.0 - 8.0 [facility] Urine sediment bacteria coun t by microscopy (number/high power field)Ordered By: ED PROVIDER on 10-16-2022 Bacteria LM.HPF (Urine sed) [#/Area] 0 /[HPF] None Seen [facility] Urine specific gravity measu rementOrdered By: ED PROVIDER on 10-16-2022 Specific gravity (U) [Rel density] 1.020 1.002-1.030 [facility] Urobilinogen Auto test strip Ql (U)Ordered By: ED PROVIDER on 10-16-2022 Urobilinogen Ql (U) Normal mg/dl Normal [facility] Absolute lymphocyte countOrd ered By: Anna Jones on 09-12-2022 Lymphocytes Auto (Unsp spec) [#/Vol] 1.45 10*3/uL 0.83-4.51 [facility] Basophil percentageOrdered B y: Anna Joens on 09-12-2022 Basophils/100 WBC (Bld) 0.5 % 0-[address] [facility] Eosinophils/100 WBC (Bld) 1.1 % 0-5 [facility] Neutrophils (Bld) [#/Vol] 6.0 10*3/uL 2.0-7.7 [facility] Neutrophils/100 WBC (Bld) 72.4 % 47-70 [facility] WBC (Bld) [#/Vol] 8.3 10*3/uL 4.4-11.0 [facility] Blood erythrocytes count (nu mber/volume)Ordered By: Anna Jones on 09-12-2022 RBC (Bld) [#/Vol] 5.00 10*6/uL 4.6-6.2 [facility] Blood hemoglobin measurement (mass/volume)Ordered By: Anna Jones on 09-12-2022 Hemoglobin (Bld) [Mass/Vol] 14.6 g/dL 13.0-16.5 [facility] Blood lymphocytes/100 leukoc ytesOrdered By: Anna Jones on 09-12-2022 Lymphocytes/100 WBC (Bld) 17.5 % 19-41 [facility] Blood monocytes/100 leukocyt esOrdered By: Anna Jones on 09-12-2022 Monocytes/100 WBC (Bld) 8.0 % 0-[address] [facility] Blood platelet mean volumeOr dered By: Anna Jones on 09-12-2022 Platelet mean volume (Bld) [Entitic vol] 11.4 fL 6.2-12.0 [facility] Determination of erythrocyte mean corpuscular volume (MCV)Ordered By: Anna Jones on 09-12-2022 MCV (RBC) [Entitic vol] 90.8 fL 80-[address] [facility] Hematocrit Auto (Bld) [Volum e fraction]Ordered By: Anna Jones on 09-12-2022 Hematocrit (Bld) [Volume fraction] 45.4 % 40-54 [facility] Laboratory - Chemistry and C hemistry - challengeOrdered By: Anna Jones on 09-12-2022 Free T4 [Mass/Vol] 0.96 ng/dL 0.76-1.46 [facility] Laboratory - Hematology and Cell countsOrdered By: Anna Jones on 09-12-2022 Erythrocyte distribution width (RBC) [Entitic vol] 44.9 fL 35.1-43.9 [facility] Erythrocyte distribution width (RBC) [Ratio] 13.4 % 11.6-14.6 [facility] Immature granulocytes/100 WBC (Bld) 0.500 % 0.0-0.9 [facility] Comment on above: IG% - Immature Granu locytes (promyelocytes, myelocytes and metamyelocytes) > 1% indicates that a LEFT SHIFT is Present. MCH (RBC) [Entitic mass] 29.2 pg 27.0-32.0 [facility] Nucleated RBC/100 WBC (Bld) [Ratio] 0 % 0-5 [facility] MCHC Auto (RBC) [Mass/Vol]Or dered By: Anna Jones on 09-12-2022 MCHC (RBC) [Mass/Vol] 32.2 g/dL 32-36 [facility] No Panel InformationOrdered By: Anna Jones on 09-12-2022 Thyroid Stimulating Hormone (TSH) 1.32 uIU/mL 0.358-3.74 [facility] Platelets bldOrdered By: aGge Jones on 09-12-2022 Platelets (Bld) [#/Vol] 220 10*3/uL 150-450 [facility] Basophil percentageon 2021 Chloride [Moles/Vol] 103 mmol/L 98-107 [facility] Work Phone: Glucose [Mass/Vol] 93 mg/dL 74-106 [facility] Work Phone: Potassium [Moles/Vol] 3.6 mmol/L 3.5-5.1 [facility] Work Phone: Sodium [Moles/Vol] 137 mmol/L 136-145 [facility] Work Phone: Laboratory - Chemistry and C hemistry - challengeon 05-26-2022 CO2 [Moles/Vol] 28.0 mmol/L 21.0-32.0 [facility] Work Phone: Natriuretic peptide B (Bld) [Mass/Vol] 14.0 pg/mL 0-100 [facility] Work Phone: Urea nitrogen/Creatinine [Mass ratio] 25.0 mg/mg 10-20 [facility] Work Phone: No Panel Informationon 05-26 Estimated GFR (MDRD) Amer 132 mL/min >60 [facility] Work Phone: Comment on above: GFR Calc Estimated GFR (MDRD) Non-Af Amer 109 mL/min >60 [facility] Work Phone: Comment on above: Non- GFR Calc Serum or plasma calcium nallely urement (mass/volume)on 05-26-2022 Calcium [Mass/Vol] 9.5 mg/dL 8.5-10.1 [facility] Work Phone: [phone] Serum or plasma creatinine m easurement (mass/volume)on 05-26-2022 Creatinine [Mass/Vol] 0.76 mg/dL 0.70-1.30 [facility] Work Phone: Comment on above: The validity of the calculated GFR & GFRAA in patients over 70 years has not been determined. Clinical correlation is essential. Serum or plasma urea nitroge n measurement (mass/volume)on 05-26-2022 Urea nitrogen [Mass/Vol] 19 mg/dL 7-18 [facility] Work Phone: [phone] Thin prep Papanicolaou smear with manual screeningon 05-26-2022 Thin prep Papanicolaou smear with manual screening 6 5-15 [facility] Work Phone: No Panel Informationon 05-17 Troponin I High Sensitivity 9 pg/mL 3.0-78.0 [facility] Work Phone: Comment on above: Please Note: New [place] t Units and Gender Specific Reference Ranges. For more information see Policy Stat Procedure [place] High Sensitivity Troponin (TNIH) and attachments. Absolute lymphocyte counton 05-16-2022 Lymphocytes Auto (Unsp spec) [#/Vol] 1.23 10*3/uL 0.83-4.51 [facility] Work Phone: Basophil percentageon 2021 Basophil percentage 10-25 SEEN /hpf 0-5 [facility] Work Phone: Basophils/100 WBC (Bld) 0.4 % 0-[address] [facility] Work Phone: Chloride [Moles/Vol] 107 mmol/L 98-107 [facility] Work Phone: Eosinophils/100 WBC (Bld) 1.2 % 0-5 [facility] Work Phone: Glucose [Mass/Vol] 104 mg/dL 74-106 [facility] Work Phone: Comment on above: Fasting Glucose resu lt from 100 to 125 mg/dL suggests IMPAIRED HOMEOSTASIS per A.D.A. criteria. Neutrophils (Bld) [#/Vol] 5.6 10*3/uL 2.0-7.7 [facility] Work Phone: Neutrophils/100 WBC (Bld) 73.5 % 47-70 [facility] Work Phone: Potassium [Moles/Vol] 3.4 mmol/L 3.5-5.1 [facility] Work Phone: Sodium [Moles/Vol] 143 mmol/L 136-145 [facility] Work Phone: WBC (Bld) [#/Vol] 7.6 10*3/uL 4.4-11.0 [facility] Work Phone: Bilirubin Test strip Ql (U)o n 05-16-2022 Bilirubin Ql (U) Negative Negative [facility] Work Phone: Blood erythrocytes count (nu mber/volume)on 05-16-2022 RBC (Bld) [#/Vol] 4.14 10*6/uL 4.6-6.2 [facility] Work Phone: Blood hemoglobin measurement (mass/volume)on 05-16-2022 Hemoglobin (Bld) [Mass/Vol] 12.4 g/dL 13.0-16.5 [facility] Work Phone: Blood lymphocytes/100 leukoc yteson 05-16-2022 Lymphocytes/100 WBC (Bld) 16.1 % 19-41 [facility] Work Phone: [phone] Blood monocytes/100 leukocyt eson 05-16-2022 Monocytes/100 WBC (Bld) 8.4 % 0-[address] [facility] Work Phone: Blood platelet mean volumeon 05-16-2022 Platelet mean volume (Bld) [Entitic vol] 11.7 fL 6.2-12.0 [facility] Work Phone: [phone] Determination of erythrocyte mean corpuscular volume (MCV)on 05-16-2022 MCV (RBC) [Entitic vol] 90.6 fL 80-[address] [facility] Work Phone: Hematocrit Auto (Bld) [Volum e fraction]on 05-16-2022 Hematocrit (Bld) [Volume fraction] 37.5 % 40-54 [facility] Work Phone: Hyaline casts LM.LPF (Urine sed) [#/Area]on 05-16-2022 Hyaline casts (Urine sed) [#/Area] 0 /[LPF] 0-5 [facility] Work Phone: [phone] Ketones Test strip Ql (U)on 05-16-2022 Ketones Ql (U) Negative Negative [facility] Work Phone: [phone] Laboratory - Chemistry and C hemistry - challengeon 05-16-2022 CO2 [Moles/Vol] 31.0 mmol/L 21.0-32.0 [facility] Work Phone: [phone] Magnesium [Mass/Vol] 1.8 mg/dL 1.6-2.6 [facility] Work Phone: [phone] Urea nitrogen/Creatinine [Mass ratio] 36.0 mg/mg 10-20 [facility] Work Phone: Laboratory - Hematology and Cell countson 05-16-2022 Erythrocyte distribution width (RBC) [Entitic vol] 45.4 fL 35.1-43.9 [facility] Work Phone: [phone] Erythrocyte distribution width (RBC) [Ratio] 13.6 % 11.6-14.6 [facility] Work Phone: [phone] Immature granulocytes/100 WBC (Bld) 0.400 % 0.0-0.9 [facility] Work Phone: [phone] Comment on above: IG% - Immature Granu locytes (promyelocytes, myelocytes and metamyelocytes) > 1% indicates that a LEFT SHIFT is Present. MCH (RBC) [Entitic mass] 30.0 pg 27.0-32.0 [facility] Work Phone: [phone] Nucleated RBC/100 WBC (Bld) [Ratio] 0 % 0-5 [facility] Work Phone: [phone] MCHC Auto (RBC) [Mass/Vol]on 05-16-2022 MCHC (RBC) [Mass/Vol] 33.1 g/dL 32-36 [facility] Work Phone: [phone] Mucus LM Ql (Urine sed)on Mucus Ql (Urine sed) 0 SEEN /hpf [facility] Work Phone: [phone] Nitrite Test strip Ql (U)on 05-16-2022 Nitrite Ql (U) Negative Negative [facility] Work Phone: [phone] No Panel Informationon 05-16 D-Dimer Quantitative (PE/DVT) 0.54 FEU/ug/m 0.27-0.49 [facility] Work Phone: [phone] Comment on above: D-Dimer ELEVATED (>0 .49): Additional studies and clinicalassessments are indicated to conclude diagnosis of:Deep Vein Thrombosis (DVT) or Pulmonary Embolism (PE)CRITICAL VALUE VERIFIED. CALLED TO Sheridan MINER RN ER05/16/22 5920 Haresh Torres.RESULTS READ BACK BY SAME. Estimated Creatinine Clearance Calc 85.20 ml/min [facility] Work Phone: [phone] Estimated GFR (MDRD) Amer 129 mL/min >60 [facility] Work Phone: Comment on above: GFR Calc Estimated GFR (MDRD) Non-Af Amer 106 mL/min >60 [facility] Work Phone: Comment on above: Non- GFR Calc Platelets bldon 05-16-2022 Platelets (Bld) [#/Vol] 217 10*3/uL 150-450 [facility] Work Phone: Protein Test strip Ql (U)on 05-16-2022 Protein Ql (U) Negative Negative [facility] Work Phone: Serum or plasma calcium nallely urement (mass/volume)on 05-16-2022 Calcium [Mass/Vol] 8.4 mg/dL 8.5-10.1 [facility] Work Phone: Serum or plasma creatinine m easurement (mass/volume)on 05-16-2022 Creatinine [Mass/Vol] 0.78 mg/dL 0.70-1.30 [facility] Work Phone: Comment on above: The validity of the calculated GFR & GFRAA in patients over 70 years has not been determined. Clinical correlation is essential. Serum or plasma urea nitroge n measurement (mass/volume)on 05-16-2022 Urea nitrogen [Mass/Vol] 28 mg/dL 7-18 [facility] Work Phone: Squamous epithelial cells de tection in urine sediment by light microscopyon 05-16-2022 Epithelial cells.squamous LM Ql (Urine sed) 0-5 SEEN /hpf 0-5 [facility] Work Phone: Thin prep Papanicolaou smear with manual screeningon 05-16-2022 Thin prep Papanicolaou smear with manual screening 5 5-15 [facility] Work Phone: Urine blood detectionon RBC Ql (U) Negative Negative [facility] Work Phone: RBC Ql (U) 0 SEEN /hpf 0-5 [facility] Work Phone: Urine clarityon 05-16-2022 Clarity (U) Sl. Cloudy Clear [facility] Work Phone: Urine color determinationon 05-16-2022 Color (U) Yellow Yellow [facility] Work Phone: Urine glucose detectionon Glucose Ql (U) Normal mg/dl Normal [facility] Work Phone: Urine leukocyte esterase det ection by dipstickon 05-16-2022 Leukocyte esterase Test strip Ql (U) 500 /ul Negative [facility] Work Phone: Urine pHon 05-16-2022 pH (U) 7.0 [pH] 5.0 - 8.0 [facility] Work Phone: Urine sediment bacteria coun t by microscopy (number/high power field)on 05-16-2022 Bacteria LM.HPF (Urine sed) [#/Area] 1 /[HPF] None Seen [facility] Work Phone: Urine specific gravity measu rementon 05-16-2022 Specific gravity (U) [Rel density] 1.015 1.002-1.030 [facility] Work Phone: Urobilinogen Auto test strip Ql (U)on 05-16-2022 Urobilinogen Ql (U) 4 mg/dl Normal [facility] Work Phone: Culture, urine Bacteria identified Cx Nom (U) Positive [facility] Work Phone: Vital Signs Date Time Vital Sign Value Performing Clinician Facility 01-02-2025 07:37-0400 Body mass index (BMI) [Ratio] 46.1 kg/m2 Dr. Manasa Zendejas DO Work Phone: [facility] 01-02-2025 07:37-0400 Body temperature 97.6 [degF] Dr. Manasa Zendejas DO Work Phone: [facility] 01-02-2025 07:37-0400 Body weight 129.[address] Manasa Zendejas DO Work Phone: [facility] 01-02-2025 07:37-0400 Diastolic blood pressure 70 mm[Hg] Dr. Manasa Zendejas DO Work Phone: [facility] 01-02-2025 07:37-0400 Heart rate 77 /min Dr. Manasa Zendejas DO Work Phone: [facility] 01-02-2025 07:37-0400 Respiratory rate 16 /min Dr. Manasa Zendejas DO Work Phone: [facility] 01-02-2025 07:37-0400 SaO2% (BldA) [Mass fraction] 98 % Dr. Manasa Zendejas DO Work Phone: [facility] 01-02-2025 07:37-0400 Systolic blood pressure 102 mm[Hg] Dr. Manasa Zendejas DO Work Phone: [phone] [place] [address] 12-26-2024 13:29-0400 Body height 167.[address] Manasa Zendejas DO Work Phone: [facility] 12-26-2024 13:29-0400 Body mass index (BMI) [Ratio] 46.7 kg/m2 Dr. Manasa Zendejas DO Work Phone: [facility] 12-26-2024 13:29-0400 Body weight 131.[address] Manasa Zendejas DO Work Phone: [facility] 12-26-2024 13:29-0400 Diastolic blood pressure 69 mm[Hg] Dr. Manasa Zendejas DO Work Phone: [facility] 12-26-2024 13:29-0400 Heart rate 68 /min Dr. Manasa Zendejas DO Work Phone: [facility] 12-26-2024 13:29-0400 Respiratory rate 18 /min Dr. Manasa Zendejas DO Work Phone: [facility] 12-26-2024 13:29-0400 SaO2% (BldA) [Mass fraction] 96 % Dr. Manasa Zendejas DO Work Phone: [facility] 12-26-2024 13:29-0400 Systolic blood pressure 119 mm[Hg] Dr. Manasa Zendejas DO Work Phone: [facility] 12-19-2024 08:24-0400 Body height 167.[address] Manasa Zendejas DO Work Phone: [facility] 12-19-2024 08:24-0400 Body weight 133.[address] Manasa Zendejas DO Work Phone: [facility] 12-19-2024 08:24-0400 Heart rate 77 /min Dr. Manasa Zendejas DO Work Phone: [facility] 12-19-2024 08:24-0400 SaO2% (BldA) [Mass fraction] 98 % Dr. Manasa Zendejas DO Work Phone: [facility] 10-25-2024 07:50-0400 Body height 167.[address] Manasa Zendejas DO Work Phone: [facility] 10-25-2024 07:50-0400 Body mass index (BMI) [Ratio] 47.4 kg/m2 Dr. Manasa Zendejas DO Work Phone: [facility] 10-25-2024 07:50-0400 Body temperature 97.4 [degF] Dr. Manasa Zendejas DO Work Phone: [facility] 10-25-2024 07:50-0400 Body weight 133.[address] Manasa Zendejas DO Work Phone: [facility] 10-25-2024 07:50-0400 Diastolic blood pressure 82 mm[Hg] Dr. Manasa Zendejas DO Work Phone: [facility] 10-25-2024 07:50-0400 Heart rate 60 /min Dr. Manasa Zendejas DO Work Phone: [facility] 10-25-2024 07:50-0400 Respiratory rate 20 /min Dr. Manasa Zendejas DO Work Phone: [facility] 10-25-2024 07:50-0400 SaO2% (BldA) [Mass fraction] 96 % Dr. Manasa Zendejas DO Work Phone: [facility] 10-25-2024 07:50-0400 Systolic blood pressure 126 mm[Hg] Dr. Manasa Zendejas DO Work Phone: [facility] 10-07-2024 08:02-0400 Body height 167.[address] Manasa Zendejas DO Work Phone: [facility] 10-07-2024 08:02-0400 Body mass index (BMI) [Ratio] 47.6 kg/m2 Dr. Manasa Zendejas DO Work Phone: [facility] 10-07-2024 08:02-0400 Body temperature 97.3 [degF] Dr. Manasa Zendejas DO Work Phone: [facility] 10-07-2024 08:02-0400 Body weight 133.[address] Manasa Zendejas DO Work Phone: [facility] 10-07-2024 08:02-0400 Diastolic blood pressure 76 mm[Hg] Dr. Manasa Zendejas DO Work Phone: [facility] 10-07-2024 08:02-0400 Heart rate 59 /min Dr. Manasa Zendejas DO Work Phone: [facility] 10-07-2024 08:02-0400 Respiratory rate 20 /min Dr. Manasa Zendejas DO Work Phone: [facility] 10-07-2024 08:02-0400 SaO2% (BldA) [Mass fraction] 95 % Dr. Manasa Zendejas DO Work Phone: [facility] 10-07-2024 08:02-0400 Systolic blood pressure 113 mm[Hg] Dr. Manasa Zendejas DO Work Phone: [facility] 07-02-2024 09:58-0500 Body mass index (BMI) [Ratio] 46.3 kg/m2 Dr. Manasa Zendejas DO Work Phone: [facility] 07-02-2024 09:58-0500 Body temperature 98.2 [degF] Dr. Manasa Zendejas DO Work Phone: [facility] 07-02-2024 09:58-0500 Body weight 130.[address] Manasa Zendejas DO Work Phone: [facility] 07-02-2024 09:58-0500 Diastolic blood pressure 72 mm[Hg] Dr. Manasa Zendejas DO Work Phone: [facility] 07-02-2024 09:58-0500 Heart rate 82 /min Dr. Manasa Zendejas DO Work Phone: [facility] 07-02-2024 09:58-0500 Respiratory rate 18 /min Dr. Manasa Zendejas DO Work Phone: [phone] [place] [address] 07-02-2024 09:58-0500 SaO2% (BldA) [Mass fraction] 99 % Dr. Manasa Zendejas DO Work Phone: [facility] 07-02-2024 09:58-0500 Systolic blood pressure 135 mm[Hg] Dr. Manasa Zendejas DO Work Phone: [facility] 06-21-2024 07:41-0500 Body mass index (BMI) [Ratio] 46.7 kg/m2 Dr. Manasa Zendejas DO Work Phone: [facility] 06-21-2024 07:41-0500 Body temperature 97.7 [degF] Dr. Manasa Zendejas DO Work Phone: [facility] 06-21-2024 07:41-0500 Body weight 131.[address] Manasa Zendejas DO Work Phone: [facility] 06-21-2024 07:41-0500 Diastolic blood pressure 74 mm[Hg] Dr. Manasa Zendejas DO Work Phone: [facility] 06-21-2024 07:41-0500 Heart rate 75 /min Dr. Manasa Zendejas DO Work Phone: [facility] 06-21-2024 07:41-0500 Respiratory rate 20 /min Dr. Manasa Zendejas DO Work Phone: [facility] 06-21-2024 07:41-0500 SaO2% (BldA) [Mass fraction] 93 % Dr. Manasa Zendejas DO Work Phone: [facility] 06-21-2024 07:41-0500 Systolic blood pressure 111 mm[Hg] Dr. Manasa Zendejas DO Work Phone: [facility] 06-13-2024 09:10-0500 Diastolic Blood Pressure Non-Invasive 95 mm[Hg] RICKEY HUNG MD [facility] 06-13-2024 09:10-0500 Heart rate 58 /min RICKEY HUNG MD [facility] 06-13-2024 09:10-0500 Respiratory rate 16 /min RICKEY HUNG MD [facility] 06-13-2024 09:10-0500 Systolic Blood Pressure Non-Invasive 114 mm[Hg] RICKEY HUNG MD [facility] 06-13-2024 08:58-0500 Diastolic Blood Pressure Non-Invasive 69 mm[Hg] RICKEY HUNG MD [facility] 06-13-2024 08:58-0500 Heart rate 69 /min RICKEY HUNG MD [facility] 06-13-2024 08:58-0500 Respiratory rate 16 /min RICKEY HUNG MD [facility] 06-13-2024 08:58-0500 Systolic Blood Pressure Non-Invasive 128 mm[Hg] RICKEY HUNG MD [facility] 06-13-2024 08:53-0500 Diastolic Blood Pressure Non-Invasive 107 mm[Hg] RICKEY HUNG MD [facility] 06-13-2024 08:53-0500 Heart rate 81 /min RICKEY HUNG MD [facility] 06-13-2024 08:53-0500 Respiratory rate 16 /min RICKEY HUNG MD [facility] 06-13-2024 08:53-0500 Systolic Blood Pressure Non-Invasive 145 mm[Hg] RICKEY HUNG MD [facility] 06-13-2024 08:08-0500 Blood Pressure Cuff Size RICKEY HUNG MD [facility] 06-13-2024 08:08-0500 Blood Pressure Location RICKYE HUNG MD [facility] 06-13-2024 08:08-0500 Blood Pressure Method RICKEY HUNG MD [facility] 06-13-2024 08:08-0500 Body height 152.4 cm RICKEY HUNG MD [facility] 06-13-2024 08:08-0500 Body weight 130.5 kg RICKEY HUNG MD [facility] 06-13-2024 08:08-0500 Body weight 56.19 kg/m2 RICKEY HUNG MD [facility] 06-13-2024 08:08-0500 Heart rate 64 /min RICKEY HUNG MD [facility] 01-30-2024 08:10-0400 Diastolic Blood Pressure Non-Invasive 67 mm[Hg] RICKEY HUNG MD [facility] 01-30-2024 08:10-0400 Heart rate 54 /min RICKEY HUNG MD [facility] 01-30-2024 08:10-0400 Respiratory rate 14 /min RICKEY HUNG MD [facility] 01-30-2024 08:10-0400 Systolic Blood Pressure Non-Invasive 104 mm[Hg] RICKEY HUNG MD [facility] 01-30-2024 08:06-0400 Diastolic Blood Pressure Non-Invasive 65 mm[Hg] RICKEY HUNG MD [facility] 01-30-2024 08:06-0400 Heart rate 54 /min RICKEY HUNG MD [facility] 01-30-2024 08:06-0400 Respiratory rate 14 /min RICKEY HUNG MD [facility] 01-30-2024 08:06-0400 Systolic Blood Pressure Non-Invasive 114 mm[Hg] RICKEY HUNG MD [facility] 01-30-2024 07:59-0400 Diastolic Blood Pressure Non-Invasive 77 mm[Hg] RICKEY HUNG MD [facility] 01-30-2024 07:59-0400 Heart rate 55 /min RICKEY HUNG MD [facility] 01-30-2024 07:59-0400 Respiratory rate 16 /min RICKEY HUNG MD [facility] 01-30-2024 07:59-0400 Systolic Blood Pressure Non-Invasive 150 mm[Hg] RICKEY HUNG MD [facility] 01-30-2024 07:55-0400 Heart rate 59 /min RICKEY HUNG MD [facility] 01-30-2024 07:17-0400 Body height 167 cm RICKEY HUNG MD [facility] 01-30-2024 07:17-0400 Body weight 129 kg RICKEY HUNG MD [facility] 01-30-2024 07:17-0400 Body weight 46.25 kg/m2 RICKEY HUNG MD [facility] 01-30-2024 07:17-0400 Heart rate 56 /min RICKEY HUNG MD [facility] 07-27-2023 10:39-0500 Diastolic blood pressure 71 mm[Hg] MARCOS SOLO CRISIS NURSE-BLOCK PAVER [facility] 07-27-2023 10:39-0500 Heart rate 55 /min MARCOS SOLO CRISIS NURSE-BLOCK PAVER [facility] 07-27-2023 10:39-0500 Respiratory rate 12 /min MARCOS SOLO CRISIS NURSE-BLOCK PAVER [facility] 07-27-2023 10:39-0500 Systolic blood pressure 117 mm[Hg] MARCOS SOLO CRISIS NURSE-BLOCK PAVER [facility] 07-27-2023 10:31-0500 Diastolic Blood Pressure Non-Invasive 65 mm[Hg] MARCOS SOLO CRISIS NURSE-BLOCK PAVER [facility] 07-27-2023 10:31-0500 Heart rate 56 /min MARCOS SOLO CRISIS NURSE-BLOCK PAVER [facility] 07-27-2023 10:31-0500 Respiratory rate 12 /min MARCOS SOLO CRISIS NURSE-BLOCK PAVER [facility] 07-27-2023 10:31-0500 Systolic Blood Pressure Non-Invasive 124 mm[Hg] MARCOS SOLO CRISIS NURSE-BLOCK PAVER [facility] 07-27-2023 10:21-0500 Diastolic Blood Pressure Non-Invasive 75 mm[Hg] MARCOS SOLO CRISIS NURSE-BLOCK PAVER [facility] 07-27-2023 10:21-0500 Heart rate 63 /min MARCOS BANDA CRISIS NURSE-BLOCK PAVER [facility] 07-27-2023 10:21-0500 Respiratory rate 18 /min MARCOS BANDA CRISIS NURSE-BLOCK PAVER [facility] 07-27-2023 10:21-0500 Systolic Blood Pressure Non-Invasive 112 mm[Hg] MARCOS BANDA CRISIS NURSE-BLOCK PAVER [facility] 07-27-2023 10:16-0500 Diastolic Blood Pressure Non-Invasive 66 mm[Hg] MARCOS BANDA CRISIS NURSE-BLOCK PAVER [facility] 07-27-2023 10:16-0500 Heart rate 57 /min MARCOS BANDA CRISIS NURSE-BLOCK PAVER [facility] 07-27-2023 10:16-0500 Systolic Blood Pressure Non-Invasive 115 mm[Hg] MARCOS BANDA CRISIS NURSE-BLOCK PAVER [facility] 07-27-2023 09:17-0500 Body height 167.6 cm MARCOS BANDA CRISIS NURSE-BLOCK PAVER [facility] 07-27-2023 09:17-0500 Body weight 122.6 kg MARCOS BANDA CRISIS NURSE-BLOCK PAVER [facility] 07-27-2023 09:17-0500 Body weight 43.65 kg/m2 MARCOS BANDA CRISIS NURSE-BLOCK PAVER [facility] 07-27-2023 09:17-0500 Heart rate 62 /min MARCOS SOLO CRISIS NURSE-BLOCK PAVER [facility] 03-15-2023 09:23-0400 Blood Pressure Cuff Size GOKUL JANG CRISIS NURSE-MACHINE PRECISION ETCHER [facility] 03-15-2023 09:23-0400 Blood Pressure Location GOKUL JANG CRISIS NURSE-MACHINE PRECISION ETCHER [facility] 03-15-2023 09:23-0400 Blood Pressure Method GOKUL JANG CRISIS NURSE-MACHINE PRECISION ETCHER [facility] 03-15-2023 09:23-0400 Diastolic Blood Pressure Non-Invasive 82 1 GOKUL JANG CRISIS NURSE-MACHINE PRECISION ETCHER [facility] 03-15-2023 09:23-0400 Heart rate 56 /min GOKUL JANG CRISIS NURSE-MACHINE PRECISION ETCHER [facility] 03-15-2023 09:23-0400 Respiratory rate 11 /min GOKUL JANG CRISIS NURSE-MACHINE PRECISION ETCHER [facility] 03-15-2023 09:23-0400 Systolic Blood Pressure Non-Invasive 115 1 GOKUL JANG CRISIS NURSE-MACHINE PRECISION ETCHER [facility] 03-15-2023 09:18-0400 Diastolic Blood Pressure Non-Invasive 71 1 GOKUL JANG CRISIS NURSE-MACHINE PRECISION ETCHER [facility] 03-15-2023 09:18-0400 Heart rate 54 /min GOKUL JANG CRISIS NURSE-MACHINE PRECISION ETCHER [facility] 03-15-2023 09:18-0400 Respiratory rate 14 /min GOKUL JANG CRISIS NURSE-MACHINE PRECISION ETCHER [facility] 03-15-2023 09:18-0400 Systolic Blood Pressure Non-Invasive 127 1 GOKUL JNAG CRISIS NURSE-MACHINE PRECISION ETCHER [facility] 03-15-2023 09:16-0400 Blood Pressure Cuff Size GOKUL JANG CRISIS NURSE-MACHINE PRECISION ETCHER [facility] 03-15-2023 09:16-0400 Blood Pressure Location GOKUL JANG CRISIS NURSE-MACHINE PRECISION ETCHER [facility] 03-15-2023 09:16-0400 Blood Pressure Method GOKUL JANG CRISIS NURSE-MACHINE PRECISION ETCHER [facility] 03-15-2023 09:16-0400 Diastolic Blood Pressure Non-Invasive 76 1 GOKUL JANG CRISIS NURSE-MACHINE PRECISION ETCHER [facility] 03-15-2023 09:16-0400 Heart rate 57 /min GOKUL JANG CRISIS NURSE-MACHINE PRECISION ETCHER [facility] 03-15-2023 09:16-0400 Respiratory rate 17 /min GOKUL JANG CRISIS NURSE-MACHINE PRECISION ETCHER [facility] 03-15-2023 09:16-0400 Systolic Blood Pressure Non-Invasive 129 1 GOKUL JANG CRISIS NURSE-MACHINE PRECISION ETCHER [facility] 03-15-2023 09:06-0400 Heart rate 62 /min GOKUL JANG CRISIS NURSE-MACHINE PRECISION ETCHER [facility] 03-15-2023 08:24-0400 Blood Pressure Location GOKUL JANG CRISIS NURSE-MACHINE PRECISION ETCHER [facility] 03-15-2023 08:24-0400 Blood Pressure Method GOKUL JANG CRISIS NURSE-MACHINE PRECISION ETCHER [facility] 03-15-2023 08:24-0400 Body height 167.6 cm GOKUL JANG CRISIS NURSE-MACHINE PRECISION ETCHER [facility] 03-15-2023 08:24-0400 Body weight 116.8 kg GOKUL JANG CRISIS NURSE-MACHINE PRECISION ETCHER [facility] 03-15-2023 08:24-0400 Body weight 41.58 kg/m2 GOKUL JANG CRISIS NURSE-MACHINE PRECISION ETCHER [facility] 02-09-2023 09:55-0400 Body height 167.[address] Manasa Zendejas Work Phone: [facility] 02-09-2023 09:55-0400 Body mass index (BMI) [Ratio] 41.9 kg/m2 Dr. Manasa Zendejas Work Phone: [facility] 02-09-2023 09:55-0400 Body weight 117.[address] Manasa Zendejas Work Phone: [facility] 02-09-2023 09:55-0400 Diastolic blood pressure 77 mm[Hg] Dr. Manasa Zendejas Work Phone: [facility] 02-09-2023 09:55-0400 Heart rate 56 /min Dr. Manasa Zendejas Work Phone: [facility] 02-09-2023 09:55-0400 Respiratory rate 18 /min Dr. Manasa Zendejas Work Phone: [facility] 02-09-2023 09:55-0400 Systolic blood pressure 116 mm[Hg] Dr. Manasa Zendejas Work Phone: [facility] 11-11-2022 09:18-0400 Diastolic Blood Pressure Non-Invasive 66 1 HERVE OLIVAREZ MD [facility] 11-11-2022 09:18-0400 Heart rate 56 /min HERVE OLIVAREZ MD [facility] 11-11-2022 09:18-0400 Respiratory rate 18 /min HERVE OLIVAREZ MD [facility] 11-11-2022 09:18-0400 Systolic Blood Pressure Non-Invasive 112 1 HERVE OLIVAREZ MD [facility] 11-11-2022 03:30-0400 Body temperature 98.24 [degF] HERVE OLIVAREZ MD [facility] 11-11-2022 03:30-0400 Diastolic Blood Pressure Non-Invasive 74 1 HERVE OLIVAREZ MD [address] [place] [address] 11-11-2022 03:30-0400 Heart rate 54 /min HERVE OLIVAREZ MD [address] [place] [address] 11-11-2022 03:30-0400 Reason For Taking VItal Signs HERVE OLIVAREZ MD [address] [place] [address] 11-11-2022 03:30-0400 Respiratory rate 16 /min HERVE OLIVAREZ MD [address] [place] [address] 11-11-2022 03:30-0400 Systolic Blood Pressure Non-Invasive 111 1 HERVE OLIVAREZ MD [address] [place] [address] 11-11-2022 02:16-0400 Heart rate 66 /min HERVE OLIVAREZ MD [address] [place] [address] 11-11-2022 00:09-0400 Heart rate 60 /min HERVE OLIVAREZ MD [address] [place] [address] 11-10-2022 21:59-0400 Heart rate 61 /min HERVE OLIVAREZ MD [address] [place] [address] 11-10-2022 19:47-0400 Body temperature 99.14 [degF] HERVE OLIVAREZ MD [address] [place] [address] 11-10-2022 19:47-0400 Diastolic Blood Pressure Non-Invasive 67 1 HERVE OLIVAREZ MD [address] [place] [address] 11-10-2022 19:47-0400 Respiratory rate 18 /min HERVE OLIVAREZ MD [address] [place] [address] 11-10-2022 19:47-0400 Systolic Blood Pressure Non-Invasive 90 1 HERVE OLIVAREZ MD [address] [place] [address] 11-10-2022 18:13-0400 Heart rate 68 /min HERVE OLIVAREZ MD [address] [place] [address] 11-10-2022 11:10-0400 Body temperature 97.16 [degF] HERVE OLIVAREZ MD [address] [place] [address] 11-10-2022 11:05-0400 Respiratory Rate - Anes 40 br/min HERVE OLIVAREZ MD [address] [place] [address] 11-10-2022 11:00-0400 Respiratory Rate - Anes 26 br/min HERVE OLIVAREZ MD [address] [place] [address] 11-10-2022 10:55-0400 Respiratory Rate - Anes 13 br/min HERVE OLIVAREZ MD [address] [place] [address] 11-10-2022 10:45-0400 Body temperature 95.4 [degF] HERVE OLIVAREZ MD [address] [place] [address] 11-10-2022 10:40-0400 Body temperature 95.43 [degF] HERVE OLIVAREZ MD [address] [place] [address] 11-10-2022 10:35-0400 Body temperature 95.43 [degF] HERVE OLIVAREZ MD [address] [place] [address] 11-10-2022 06:22-0400 Blood Pressure Cuff Size HERVE OLIVAREZ MD [address] [place] [address] 11-10-2022 06:22-0400 Blood Pressure Location HERVE OLIVAREZ MD [address] [place] [address] 11-10-2022 06:22-0400 Blood Pressure Method HERVE OLIVAREZ MD [address] [place] [address] 11-10-2022 06:22-0400 Body height 167.6 cm HERVE OLIVAREZ MD [address] [place] [address] 11-10-2022 06:22-0400 Body temperature 97.7 [degF] HERVE OLIVAREZ MD [address] [place] [address] 11-10-2022 06:22-0400 Body weight 116.5 kg HERVE OLIVAREZ MD [address] [place] [address] 11-10-2022 06:22-0400 Body weight 41.47 kg/m2 HERVE OLIVAREZ MD [facility] 10-16-2022 08:03-0400 Diastolic blood pressure 52 mm[Hg] Dr. Manasa Zendejas Work Phone: [facility] 10-16-2022 08:03-0400 Heart rate 70 /min Dr. Manasa Zendejas Work Phone: [facility] 10-16-2022 08:03-0400 Respiratory rate 18 /min Dr. Manasa Zendejas Work Phone: [facility] 10-16-2022 08:03-0400 SaO2% (BldA) [Mass fraction] 100 % Dr. Manasa Zendejas Work Phone: [facility] 10-16-2022 08:03-0400 Systolic blood pressure 123 mm[Hg] Dr. Manasa Zendejas Work Phone: [facility] 10-16-2022 06:37-0400 Body height 167.[address] Manasa Zendejas Work Phone: [facility] 10-16-2022 06:37-0400 Body mass index (BMI) [Ratio] 40.8 kg/m2 Dr. Manasa Zendejas Work Phone: [facility] 10-16-2022 06:37-0400 Body temperature 98 [degF] Dr. Manasa Zendejas Work Phone: [facility] 10-16-2022 06:37-0400 Body weight 114.[address] Manasa Zendejas Work Phone: [facility] 09-21-2022 09:25-0400 Diastolic Blood Pressure Non-Invasive 68 1 RICKEY HUNG MD [facility] 09-21-2022 09:25-0400 Heart rate 54 /min RICKEY HUNG MD [facility] 09-21-2022 09:25-0400 Respiratory rate 20 /min RICKEY HUNG MD [facility] 09-21-2022 09:25-0400 Systolic Blood Pressure Non-Invasive 108 1 RICKEY HUNG MD [facility] 09-21-2022 09:08-0400 Diastolic Blood Pressure Non-Invasive 71 1 RICKEY HUNG MD [facility] 09-21-2022 09:08-0400 Heart rate 54 /min RICKEY HUNG MD [facility] 09-21-2022 09:08-0400 Respiratory rate 15 /min RICKEY HUNG MD [facility] 09-21-2022 09:08-0400 Systolic Blood Pressure Non-Invasive 112 1 RICKEY HUNG MD [facility] 09-21-2022 09:04-0400 Diastolic Blood Pressure Non-Invasive 81 1 RICKEY HUNG MD [facility] 09-21-2022 09:04-0400 Heart rate 58 /min RICKEY HUNG MD [facility] 09-21-2022 09:04-0400 Respiratory rate 22 /min RICKEY HUNG MD [facility] 09-21-2022 09:04-0400 Systolic Blood Pressure Non-Invasive 128 1 RICKEY HUNG MD [facility] 09-21-2022 08:30-0400 Blood Pressure Cuff Size RICKEY HUNG MD [facility] 09-21-2022 08:30-0400 Blood Pressure Location RICKEY HUNG MD [facility] 09-21-2022 08:30-0400 Blood Pressure Method RICKEY HUNG MD [facility] 09-21-2022 08:30-0400 Body height 167 cm RICKEY HUNG MD [facility] 09-21-2022 08:30-0400 Heart rate 58 /min RICKEY HUNG MD [facility] 09-12-2022 10:08-0500 Body mass index (BMI) [Ratio] 41.9 kg/m2 Dr. Manasa Zendejas Work Phone: [facility] 09-12-2022 10:08-0500 Body weight 117.[address] Manasa Zendejas Work Phone: [facility] 09-12-2022 10:08-0500 Diastolic blood pressure 79 mm[Hg] Dr. Manasa Zendejas Work Phone: [facility] 09-12-2022 10:08-0500 Heart rate 74 /min Dr. Manasa Zendejas Work Phone: [facility] 09-12-2022 10:08-0500 Respiratory rate 18 /min Dr. Manasa Zendejas Work Phone: [facility] 09-12-2022 10:08-0500 SaO2% (BldA) [Mass fraction] 99 % Dr. Manasa Zendejas Work Phone: [facility] 09-12-2022 10:08-0500 Systolic blood pressure 125 mm[Hg] Dr. Manasa Zendejas Work Phone: [facility] 07-27-2022 13:29-0500 Body mass index (BMI) [Ratio] 42.1 kg/m2 Dr. Manasa Zendejas Work Phone: [facility] 07-27-2022 13:29-0500 Body weight 118.[address] Manasa Zendejas Work Phone: [facility] 07-27-2022 13:29-0500 Diastolic blood pressure 60 mm[Hg] Dr. Manasa Zendejas Work Phone: [facility] 07-27-2022 13:29-0500 Heart rate 48 /min Dr. Manasa Zendejas Work Phone: [facility] 07-27-2022 13:29-0500 Respiratory rate 16 /min Dr. Manasa Zendejas Work Phone: [facility] 07-27-2022 13:29-0500 Systolic blood pressure 100 mm[Hg] Dr. Manasa Zendejas Work Phone: [facility] 05-26-2022 10:28-0500 Body height 167.[address] Manasa Zendejas Work Phone: [facility] Work Phone: 05-26-2022 10:28-0500 Body mass index (BMI) [Ratio] 43.2 kg/m2 Dr. Manasa Zendejas Work Phone: [facility] Work Phone: 05-26-2022 10:28-0500 Body weight 121.[address] Manasa Zendejas Work Phone: [facility] Work Phone: 05-26-2022 10:28-0500 Diastolic blood pressure 66 mm[Hg] Dr. Manasa Zendejas Work Phone: [facility] Work Phone: 05-26-2022 10:28-0500 Heart rate 75 /min Dr. Manasa Zendejas Work Phone: [facility] Work Phone: 05-26-2022 10:28-0500 Respiratory rate 18 /min Dr. Manasa Zendejas Work Phone: [facility] Work Phone: 05-26-2022 10:28-0500 Systolic blood pressure 107 mm[Hg] Dr. Manasa Zendejas Work Phone: [facility] Work Phone: 05-17-2022 01:54-0500 Diastolic blood pressure 62 mm[Hg] Dr. Manasa Zendejas Work Phone: [facility] Work Phone: 05-17-2022 01:54-0500 Heart rate 56 /min Dr. Manasa Zendejas Work Phone: [facility] Work Phone: 05-17-2022 01:54-0500 Respiratory rate 18 /min Dr. Manasa Zendejas Work Phone: [facility] Work Phone: 05-17-2022 01:54-0500 SaO2% (BldA) [Mass fraction] 100 % Dr. Manasa Zendejas Work Phone: [facility] Work Phone: 05-17-2022 01:54-0500 Systolic blood pressure 91 mm[Hg] Dr. Manasa Zendejas Work Phone: [facility] Work Phone: 05-16-2022 22:14-0500 Body height 167.[address] Manasa Zendejas Work Phone: [facility] Work Phone: 05-16-2022 22:14-0500 Body mass index (BMI) [Ratio] 44.1 kg/m2 Dr. Manasa Zendejas Work Phone: [facility] Work Phone: 05-16-2022 22:14-0500 Body temperature 98.4 [degF] Dr. Manasa Zendejas Work Phone: [facility] Work Phone: 05-16-2022 22:14-0500 Body weight [address] Manasa Zendejas Work Phone: [facility] Work Phone: 05-02-2022 10:31-0400 Body mass index (BMI) [Ratio] 43.4 kg/m2 Dr. Manasa Zendejas Work Phone: [facility] Work Phone: 05-02-2022 10:31-0400 Body temperature 97.5 [degF] Dr. Manasa Zendejas Work Phone: [facility] Work Phone: 05-02-2022 10:31-0400 Body weight 122.[address] Manasa Zendejas Work Phone: [facility] Work Phone: 05-02-2022 10:31-0400 Diastolic blood pressure 77 mm[Hg] Dr. Manasa Zendejas Work Phone: [facility] Work Phone: 05-02-2022 10:31-0400 Heart rate 64 /min Dr. Manasa Zendejas Work Phone: [facility] Work Phone: 05-02-2022 10:31-0400 Respiratory rate 20 /min Dr. Manasa Zendejas Work Phone: [facility] Work Phone: 05-02-2022 10:31-0400 SaO2% (BldA) [Mass fraction] 95 % Dr. Manasa Zendejas Work Phone: [facility] Work Phone: 05-02-2022 10:31-0400 Systolic blood pressure 113 mm[Hg] Dr. Manasa Zendejas Work Phone: [facility] Work Phone: 04-06-2022 08:35-0400 Diastolic blood pressure 89 mm[Hg] RICKEY HUNG MD [facility] 04-06-2022 08:35-0400 Heart rate 61 /min RICKEY HUNG MD [facility] 04-06-2022 08:35-0400 Respiratory rate 22 /min RICKEY HUNG MD [facility] 04-06-2022 08:35-0400 Systolic blood pressure 133 mm[Hg] RICKEY HUNG MD [facility] 04-06-2022 08:23-0400 Diastolic Blood Pressure NBP 88 1 RICKEY HUNG MD [facility] 04-06-2022 08:23-0400 Heart rate 63 /min RICKEY HUNG MD [facility] 04-06-2022 08:23-0400 Respiratory rate 15 /min RICKEY HUNG MD [facility] Management 04-06-2022 08:23-0400 Systolic Blood Pressure NBP 136 1 RICKEY HUNG MD [facility] Management 04-06-2022 08:10-0400 Diastolic Blood Pressure NBP 82 1 RICKEY HUNG MD [facility] 04-06-2022 08:10-0400 Heart rate 63 /min RICKEY HUNG MD [facility] Management 04-06-2022 08:10-0400 Respiratory rate 16 /min RICKEY HUNG MD [facility] 04-06-2022 08:10-0400 Systolic Blood Pressure NBP 110 1 RICKEY HUNG MD [facility] 04-06-2022 07:46-0400 Body height 167 cm RICKEY HUNG MD [facility] 04-06-2022 07:46-0400 Body weight 128 kg RICKEY HUNG MD [facility] 04-06-2022 07:46-0400 Body weight 45.9 kg/m2 RICKEY HUNG MD [facility] 04-06-2022 07:46-0400 diastolic 87 mm[Hg] RICKEY HUNG MD [facility] 04-06-2022 07:46-0400 Heart rate 64 /min RICKEY HUNG MD [facility] 04-06-2022 07:46-0400 systolic 163 mm[Hg] RICKEY HUNG MD [facility] 01-27-2022 06:17-0400 Body mass index (BMI) [Ratio] 48.9 kg/m2 Dr. Manasa Zendejas Work Phone: [facility] Work Phone: 01-27-2022 06:17-0400 Body temperature 97.9 [degF] Dr. Manasa Zendejas Work Phone: [facility] Work Phone: 01-27-2022 06:17-0400 Body weight 137.[address] Manasa Zendejas Work Phone: [facility] Work Phone: 01-27-2022 06:17-0400 Diastolic blood pressure 84 mm[Hg] Dr. Manasa Zendejas Work Phone: [facility] Work Phone: 01-27-2022 06:17-0400 Heart rate 69 /min Dr. Manasa Zendejas Work Phone: [facility] Work Phone: 01-27-2022 06:17-0400 Respiratory rate 17 /min Dr. Manasa Zendejas Work Phone: [facility] Work Phone: 01-27-2022 06:17-0400 SaO2% (BldA) [Mass fraction] 98 % Dr. Manasa Zendejas Work Phone: [facility] Work Phone: 01-27-2022 06:17-0400 Systolic blood pressure 126 mm[Hg] Dr. Manasa Zendejas Work Phone: [facility] Work Phone: Encounters Encounter Date Encounter Type Care Provider Facility Start: 01-06-2025 End: 01-06-[address] Manasa Zendejas DO Work Phone: -Laboratory Start: 01-06-2025 End: 01-06-[address] Donn Hawk MD -Laboratory Work Phone: Start: 01-06-2025 End: 01-06-2025 ambulatory Donn Hawk Facility:[facility] Start: 01-02-2025 End: 01-02-2025 Patient encounter procedure Cathy DEGROOT -[facility] Work Phone: Start: 01-02-2025 End: 01-02-[address] Manasa Zendejas DO Work Phone: [facility] Work Phone: Start: 12-26-2024 End: 12-26-[address] Donn Hawk MD -[facility] Work Phone: Start: 12-26-2024 End: 12-26-[address] Manasa Zendejas DO Work Phone: [facility] Work Phone: Start: 12-23-2024 ambulatory Cathy Ruiz NP Fac ility:[facility] Start: 12-23-2024 Non-patient / Non-visit Dr. Cale wolf DO -[facility] Start: 12-19-2024 End: 12-19-[address] Manasa Zendejas DO Work Phone: [facility] Work Phone: Start: 12-19-2024 End: 12-19-2024 Patient encounter procedure Cathy DEGROOT -Pulmonary Services/Neurology Work Phone: Start: 12-19-2024 End: 12-19-2024 ambulatory Cathy Ruiz NP Facility:[facility] Start: 12-17-2024 End: 12-17-2024 ambulatory RICKEY HUNG MD Facility:A Start: 12-17-2024 End: 12-17-2024 Anticoagulant drug monitoring RICKEY HUNG MD [facility] Start: 11-20-2024 End: 11-24-2024 ambulatory MANASA ZENDEJAS DO Facility[place] [place] Start: 11-20-2024 ambulatory JESUS NAGI CRISIS NURSE-MACHINE PRECISION ETCHER F acility:A Start: 11-07-2024 End: 11-07-2024 ambulatory JESUS NAGI CRISIS NURSE-MACHINE PRECISION ETCHER Facility:A Start: 11-07-2024 End: 11-07-2024 Patient encounter procedure JESUS LAZAR CRISIS NURSE-MACHINE PRECISION ETCHER [facility] Start: 10-30-2024 End: 10-30-[address] Manasa Zendejas DO Work Phone: [facility] Work Phone: Start: 10-30-2024 End: 10-30-2024 Patient encounter procedure Cathy Ruiz INSTALLATION HELPER-C -Pulmonary Services/Neurology Work Phone: Start: 10-30-2024 End: 10-30-2024 ambulatory Cathy Ruiz INSTALLATION HELPER Facility:[facility] Start: 10-25-2024 End: 10-25-2024 Patient encounter procedure Cathy Ruiz NP-C -[facility] Work Phone: Start: 10-25-2024 End: 10-25-2024 ambulatory Cathy Ruiz NP [place] Start: 10-15-2024 End: 10-15-[address] Manasa Zendejas DO Work Phone: [facility] Work Phone: Start: 10-15-2024 End: 10-15-2024 Patient encounter procedure Cathy Ruiz NP-C -[facility] Start: 10-15-2024 End: 10-15-2024 ambulatory Cathy Ruiz NP Facility:[facility] Start: 10-07-2024 End: 10-07-2024 Patient encounter procedure Cathy Ruiz NP-C -[facility] Work Phone: Start: 10-07-2024 End: 10-07-[address] Manasa Zendejas DO Work Phone: [facility] Work Phone: Start: 10-07-2024 End: 10-07-2024 ambulatory Cathy Ruiz NP Facility:[facility] Start: 09-30-2024 End: 09-30-2024 ambulatory MANASA ZENDEJAS DO Facility:[facility] [place] Start: 09-11-2024 End: 09-11-2024 ambulatory JESUS LAZAR CRISIS NURSE-MACHINE PRECISION ETCHER Facility:A Start: 09-11-2024 End: 09-11-2024 Patient encounter procedure JESUS LAZAR CRISIS NURSE-MACHINE PRECISION ETCHER [facility] Start: 08-23-2024 End: 08-23-2024 ambulatory MANASA PHILIPKO DO Facility:[facility] [place] Start: 08-23-2024 End: 08-23-2024 Patient encounter procedure MANASA PHILIPKO DO [facility] Start: 07-02-2024 End: 07-02-2024 Emergency department patient visit Dr. Behzad Rivera DO -Emergency Department Work Phone: Start: 06-21-2024 End: 06-21-2024 Patient encounter procedure Cathy Ruiz INSTALLATION HELPER- -[facility] Work Phone: Start: 06-21-2024 End: 06-21-2024 ambulatory Cathy Ruiz NP Facility:[facility] Start: 06-13-2024 End: 06-13-2024 ambulatory MANASA PHILIPKO DO Facility:A Start: 06-13-2024 End: 06-13-2024 Anticoagulant drug monitoring RICKEY HUNG MD [facility] Start: 05-22-2024 End: 05-22-2024 ambulatory Cathy Ruiz NP Facility:[facility] Start: 04-29-2024 End: 04-29-2024 ambulatory MANASA PHILIPKO DO Facility:[facility] Start: 04-29-2024 End: 04-29-2024 Patient encounter procedure RICKEY HUNG MD [facility] Start: 02-14-2024 Encounter for genera l adult medical examination without abnormal findings Donn Hawk [facility] Start: 01-31-2024 ambulatory Karen Smith NP Facili ty:[facility] Start: 01-31-2024 ambulatory Manasa Philipko Facility: [facility] Start: 01-30-2024 End: 01-31-2024 ambulatory RICKEY HUNG MD Facility:A Start: 01-30-2024 End: 01-30-2024 Anticoagulant drug monitoring RICKEY HUNG MD [facility] Start: 01-18-2024 End: 01-18-2024 ambulatory Cathy Ruiz NP Facility:[facility] Start: 12-28-[address] Pedro Luis Zendejas DO Work Phone: [facility] Start: 12-26-2023 End: 12-26-2023 ambulatory RICKEY HUNG MD Facility:A Start: 09-25-2023 End: 09-25-2023 ambulatory RICKEY HUNG MD Facility:A Start: 09-25-2023 End: 09-25-2023 Patient encounter procedure RICKEY HUNG MD [facility] Start: 08-14-2023 End: 08-14-2023 ambulatory MANASA CRISTIANA DUBOIS Facility:B Start: 08-14-2023 End: 08-14-2023 Patient encounter procedure MANASA CRISTIANA DUBOIS [facility] Start: 08-14-2023 End: 08-14-2023 ambulatory MANASA PHILIPALONZO DUBOIS Facility:B Start: 07-27-2023 End: 07-27-2023 ambulatory MARCOS A SOLO CRISIS NURSE-BLOCK PAVER Facility:A Start: 07-27-2023 End: 07-27-2023 Anticoagulant drug monitoring MARCOS A SOLO CRISIS NURSE-BLOCK PAVER [facility] Start: 06-30-2023 End: 06-30-2023 ambulatory MARCOS A SOLO CRISIS NURSE-BLOCK PAVER Facility:A Start: 06-30-2023 End: 06-30-2023 Patient encounter procedure MARCOS A SOLO CRISIS NURSE-BLOCK PAVER [facility] Start: 04-24-2023 End: 04-24-[address] Manasa Zendejas Work Phone: [facility] Work Phone: Start: 04-24-2023 End: 04-24-[address] Manasa Zendejas Work Phone: [facility]Labor[facility] Work Phone: Start: 03-15-2023 End: 03-15-2023 ambulatory GOKUL JANG CRISIS NURSE-MACHINE PRECISION ETCHER Facility:A Start: 03-15-2023 End: 03-15-2023 Anticoagulant drug monitoring GOKUL FIGUEREDOTT CRISIS NURSE-MACHINE PRECISION ETCHER [facility] Start: 02-24-2023 End: 02-24-2023 ambulatory [facility] Facility:B Start: 02-24-2023 End: 02-24-2023 Patient encounter procedure MANASA ZENDEJAS DO [facility] Start: 02-14-2023 End: 02-14-2023 ambulatory MANASA ZENDEJAS DO Facility:A Start: 02-14-2023 End: 02-14-2023 Patient encounter procedure GOKUL JANG CRISIS NURSE-MACHINE PRECISION ETCHER [facility] Start: 02-10-2023 Non-patient / Non-visit Dr. Opal Zendejas Work Phone: [facility] Work Phone: Start: 02-09-2023 End: 02-09-[address] Manasa Zendejas Work Phone: [facility] Work Phone: Start: 11-10-2022 End: 11-11-2022 Observation HERVE OLIVAREZ MD [facility] Start: 10-28-2022 End: 10-28-2022 Patient encounter procedure MANASA ZENDEJAS DO [facility] Start: 10-16-2022 End: 10-16-2022 Emergency department patient visit Dr. Manasa Zendejas Work Phone: [facility] Start: 09-21-2022 End: 09-21-2022 Anticoagulant drug monitoring RICKEY HUNG MD [facility] Start: 09-12-2022 End: 09-12-[address] Manasa Zendejas Work Phone: [facility] Start: 08-02-2022 End: 08-02-[address] Manasa Zendejas Work Phone: [facility] Start: 07-27-2022 End: 07-27-[address] Manasa Zendejas Work Phone: [facility] Start: 07-26-2022 Non-patient / Non-visit Dr. Opal Zendejas Work Phone: [facility] Start: 07-01-2022 Non-patient / Non-visit Dr. Opal Zendejas Work Phone: [facility] Start: 06-07-2022 Non-patient / Non-visit Dr. Opal Zendejas Work Phone: [facility] Start: 06-07-2022 End: 06-07-[address] Manasa Zendejas Work Phone: [facility] Work Phone: Start: 06-07-2022 End: 06-07-[address] Manasa Zendejas Work Phone: [facility] Start: 06-02-[address] Krish Zendejas Work Phone: [facility] Start: 05-30-2022 Non-patient / Non-visit Dr. Opal Zendejas Work Phone: [facility] Start: 05-30-2022 End: 05-30-[address] Manasa Zendejas Work Phone: [facility] Work Phone: Start: 05-30-2022 End: 05-30-[address] Manasa Zendejas Work Phone: [facility] Start: 05-26-2022 End: 05-26-[address] Manasa Zendejas Work Phone: [facility] Work Phone: Start: 05-26-2022 End: 05-27-2022 Patient encounter procedure RICKEY HUNG MD [facility] Start: 05-16-2022 End: 05-17-2022 Emergency department patient visit Dr. Manasa Zendejas Work Phone: [facility] Start: 05-02-2022 End: 05-02-[address] Manasa Zendejas Work Phone: [facility] Start: 04-06-2022 End: 04-06-2022 Minor Procedure RICKEY HUNG MD [facility] Start: 02-23-2022 End: 02-23-2022 Patient encounter procedure CALEB AJ MD [facility] Start: 02-11-2022 End: 02-11-2022 Patient encounter procedure RICKEY HUNG MD [facility] Start: 02-11-2022 End: 02-11-2022 Patient encounter procedure RICKEY HUNG MD [facility] Start: 01-27-2022 End: 01-27-[address] [facility] Start: 01-03-2022 End: 01-03-2022 Patient encounter procedure MANASA PHILIPALONZO [facility] Start: 12-14-2021 End: 12-14-2021 Minor Procedure MANASA ZENDEJAS DO [facility] Procedures Date Procedure Procedure Detail [...] Wit h Imaging SN 1 MARCOS BANDA CRISIS NURSE-BLOCK PAVER Comment on above: auto-populated from documented surgical [...] Wit h Imaging SN 1 GOKUL JANG CRISIS NURSE-MACHINE PRECISION ETCHER Comment on above: auto-populated from documented surgical case Start: 03-15-2023 PM Inj Spine L/S Wit h Imaging SN 2 MARCOS BANDA CRISIS NURSE-BLOCK PAVER Comment on above: auto-populated from documented surgical [...] MD Comment on above: IMPRESSION: Normal ambulatory security monitor with a predominant underlying rhythm of normal sinus. Start: 12-08-2022 Ablation - action (q ualifier value) GOKUL JANG CRISIS NURSE-MACHINE PRECISION ETCHER Comment on above: Impression: Successf ul ablation [...] Wit h Imaging SN 2 GOKUL JANG CRISIS NURSE-MACHINE PRECISION ETCHER Comment on above: auto-populated from documented surgical case Start: 09-21-2022 PM Inj Spine L/S Wit h Imaging SN 3 MARCOS BANDA CRISIS NURSE-BLOCK PAVER Comment on above: auto-populated from documented surgical [...] Wit h Imaging SN 3 GOKUL JANG CRISIS NURSE-MACHINE PRECISION ETCHER Comment on above: auto-populated from documented surgical case Start: 04-06-2022 PM Inj Spine L/S Wit h Imaging SN 4 MARCOS BANDA CRISIS NURSE-BLOCK PAVER Comment on above: auto-populated from documented surgical [...] of left kn ee (body structure) MANASA [employer] Start: 08-22-2013 Structure of left sh oulder region (body structure) [facility]NASA [employer] Start: 04-09-2009 Hernia of abdominal cavity (disorder) MANASA PHILIPALONZO DO Start: 02-19-2009 Structure of right s houlder region (body structure) MANASA [employer] DO Back structure, excl uding neck (body structure) MANASA [employer] DO Urine culture Dr. Manasa michaud Work Phone: Plan of Treatment Date Care Activity Detail Author Start: 01-23-2025 [facility] Start: 11-28-2024 Walking distance 6 minutes [facility] Start: 07-02-2024 [facility] Start: 10-16-2022 [facility] Start: 09-12-2022 Patient referral [facility] Work Phone: Start: 08-02-2022 Evaluation of diagno stic study results [facility] Start: 05-17-2022 Following clinical p athway protocol [facility] Work Phone: Start: 05-17-2022 [facility] Work Phone: Bacteria identified in Urine by Culture Urine Culture [facility] Work Phone: Basic metabolic 2008 panel with ionized calcium - Serum or Plasma [facility] Patient Education [facility] Work Phone: Patient referral [facility] Work Phone: Positron emission tomography with computed tomography [facility] Work Phone: [facility] Immunizations Immunization Date Immunization Notes Care Provider Fa [facility] 06-21-2024 influenza virus vaccine, unspecified formulation MANASA ZENDEJAS DO [facility] 06-21-2024 Seasonal trivalent influenza vaccine, adjuvanted, preservative free Dr. Manasa Zendejas DO Work Phone: [facility] 04-18-2023 zoster vaccine recombinant RICKEY HUGN MD [facility] 02-09-2023 zoster vaccine recombinant RICKEY HUNG MD [facility] 02-08-2023 Pneumococcal conjuga te PCV20, polysaccharide [id number] conjugate, adjuvant, PF; Translations: [Prevnar 20] GOKUL JANG CRISIS NURSE-MACHINE PRECISION ETCHER [facility] 08-12-2020 SARS-CoV-2 (COVID-19 ) mRNA-1273 vaccine MANASA ZENDEJAS DO [facility] 07-17-2020 SARS-CoV-2 (COVID-19 ) mRNA-1273 vaccine MANASA ZENDEJAS DO [facility] 05-05-2020 diphtheria and tetan us toxoids, adsorbed for pediatric use MANASA ZENDEJAS DO [facility] 05-05-2020 influenza virus vaccine, unspecified formulation MANASA ZENDEJAS DO [facility] 07-10-2019 diphtheria and tetan us toxoids, adsorbed for pediatric use MANASA ZENDEJAS DO [facility] Comment on above: Result Comment: [facility] 04-13-2016 influenza, injectabl e, quadrivalent, preservative free Dr. Manasa Zendejas Work Phone: [facility] 04-13-2016 influenza, seasonal, injectable Dr. Manasa Zendejas Work Phone: [facility] 05-15-[address] Manasa Zendejas Work Phone: [facility] 03-10-2012 influenza virus vaccine, unspecified formulation MANASA ZENDEJAS DO [facility] Payers Date Payer Category Payer Self-pay [id number] 2023 Private Health Insurance [id number] 2022 Private Health Insurance [id number] 2016 Private Health Insurance [employer] [id number] 1955 [facility] [id number] 2.16.8 40.1.689461.3.579.2.627 1955 Unknown [id number] 2.16.8 40.1.984229.3.579.2.627 1956 Unknown [id number] 2.16.8 40.1.547026.3.579.2.627 1956 Unknown [id number] 2.16.8 40.1.145217.3.579.2.627 1956 Unknown [id number] 2.16.8 40.1.519200.3.579.2.627 1956 Unknown [id number] 2.16.8 40.1.771043.3.579.2.7 1956 Unknown [id number] 2.16.8 40.1.166061.3.579.2.627 1956 Unknown [id number] 2.16.8 40.1.435789.3.579.2.7 1956 Unknown [id number] 2.16.8 40.1.412300.3.579.2.7 1956 Unknown [id number] 2.16.8 40.1.399939.3.579.2.7 1956 Unknown [id number] 2.16.8 40.1.932831.3.579.2.7 1956 Unknown [id number] 2.16.8 40.1.657046.3.579.2.627 1956 Unknown [id number] 2.16.8 40.1.709878.3.579.2.627 1956 Unknown [id number] 2.16.8 40.1.682521.3.579.2.7 1956 Unknown [id number] 2.16. 840.1.186344.3.579.2.627 1956 Unknown [id number] 2.16.8 40.1.454462.3.579.2.627 1956 Unknown [id number] 2.16.8 40.1.760554.3.579.2.627 1956 Unknown [id number] 2.16.8 40.1.403587.3.579.2.627 1956 Unknown [id number] 2.16.8 40.1.324758.3.579.2.627 1956 Unknown [id number] 2.16.8 40.1.840707.3.579.2.627 Unknown [id number] 2.16.8 40.1.384047.3.579.2.462 Unknown [id number] 2.16.8 40.1.732146.3.579.2.462 Unknown [id number] 2.16.8 40.1.208014.3.579.2.462 Unknown [id number] 2.16.8 40.1.050002.3.579.2.462 Unknown [id number] 2.16.8 40.1.953788.3.579.2.462 Unknown [id number] 2.16.8 40.1.592784.3.579.2.462 Unknown [id number] 2.16.8 40.1.931452.3.579.2.462 Unknown [id number] 2.16.8 40.1.533905.3.579.2.462 Unknown [id number] 2.16.8 40.1.386543.3.579.2.462 Unknown [id number] 2.16.8 40.1.377331.3.579.2.462 Unknown [id number] 2.16.8 40.1.482513.3.579.2.462 Unknown [id number] 2.16.8 40.1.961458.3.579.2.462 Unknown [id number] 2.16.8 40.1.315987.3.579.2.462 Unknown [id number] 2.16.8 40.1.934497.3.579.2.462 Unknown [id number] 2.16.8 40.1.838183.3.579.2.462 Unknown [id number] 2.16.8 40.1.829678.3.579.2.462 Unknown [id number] 2.16.8 40.1.442996.3.579.2.462 Unknown [id number] 2.16.8 40.1.186451.3.579.2.462 Social History Date Type Detail Facility Start: 06-24-2019 End: 01-15-2024 Tobacco smoking status Never smoked tobacco (finding) [facility] Start: 1955 Sex Assigned At Male A [facility] Start: 05-16-2022 End: 02-09-2023 Tobacco smoking status DCIS Unknown if ever smoked [facility] Start: 09-03-2013 Rare [facility] Start: 09-03-2013 None [facility] Start: 09-03-2013 Alone [facility] Start: 09-03-2013 Non-smoker [facility] Start: 11-10-2022 End: 07-02-2024 Tobacco smoking status Ex-smoker (finding) [facility] Sexual Orientation [facility] Start: 01-02-2019 End: 11-04-2024 Sex Male (finding) [facility] Functional Status Date Assessment Result Facility 06-13-2024 Functional Status Independent [facility] 06-13-2024 Functional Status Maintained [facility] 01-30-2024 Functional Status Maintained [facility] 07-27-2023 Functional Status None [facility] 07-27-2023 Functional Status More than 8 hours [facility] 03-15-2023 Functional Status Maintained [facility] 11-11-2022 Functional Status Ambulating in room [facility] 11-11-2022 Functional Status 100 [facility] 11-11-2022 Functional Status Room located n ear nursing station, Room check performed [facility] 11-10-2022 Functional Status [facility] 11-10-2022 Functional Status Dinner Percent 100 [facility] 11-10-2022 Functional Status Identification band, Verbal [facility] 11-10-2022 Functional Status [facility] 11-10-2022 Functional Status [facility] 09-21-2022 Functional Status Maintained [facility] 04-06-2022 Functional Status Maintained [facility] Mental Status Date Assessment Result Facility 01-30-2024 Mental Status Orientation Oriented x [facility] [facility] 07-27-2023 Mental Status Orientation Oriented x 4 [facility] 03-15-2023 Mental Status Orientation Oriented x 4 [facility] 11-11-2022 Mental Status Orientation Oriented x 4 [facility] 11-11-2022 Mental Status [facility] 11-10-2022 Mental Status [facility]10[facility] Mental Status [facility] x 4 [facility] 11-10-[facility]22 [facility] 09-21-2022 Mental Status Orientation Oriented x 4 [facility] 05-16-2022 Cognitive function Voice/Name [facility] Work Phone: 04-06-2022 Mental Status Oriented x 4 [facility] Clinical Notes 04-23-2021 to 12-26-2024 Note Date & Type Note Facility 12-26-2024 Progress note Note Date/Time December 26, 2024 1:57pm [facility] [place] [address] [place], [place] [address] OFFICE VISIT Date of Service: 12/26/24 MR#: [id number] Acct: [id number] Name: KRYSTYNA PADGETT Rep #: [id number] : 1955 Provider: Dr. Christo Hawk MD Age/Sex: 69/M Location: [facility] Status: Signed HPI HPI History of Present [...] air Intake Visit Reasons: 1 Y FU Campaign Advisor Required: No Accompanied by: Self Is patient [...] (premature ventricular contractions) Atherosclerotic heart disease of [place] coronary artery without angina pectoris Sinus bradycardia [...] Week I25.10 - Atherosclerotic heart disease of [place] coronary artery without angina pectoris Plan Details [...] (if applicable) CC: Dr. Manasa Zendejas, ~ [place] [employer] [facility] Work Phone: 1(885) 190-834806-19-2025 Progress [facility] [place], [place] [address] OFFICE VISIT Date of Service: 12/26/24 MR#: [id number] Acct: [id number] Name: KRYSTYNA PADGETT Rep #: [id number] : 1955 Provider: Dr. Christo Hawk MD Age/Sex: 69/M Location: [facility] Status: Signed HPI HPI History of Present [...] air Intake Visit Reasons: 1 Y FU Campaign Advisor Required: No Accompanied by: Self Is patient [...] (premature ventricular contractions) Atherosclerotic heart disease of [place] coronary artery without angina pectoris Sinus bradycardia [...] Week I25.10 - Atherosclerotic heart disease of [place] coronary artery without angina pectoris Plan Details [...] applicable) CC: Dr. Manasa Zendejas, DO ~ [facility]06-16-[facility] [address] [place] [address] MR#: [id number] Acct: [id number] Name: KRYSTYNA PADGETT Rep #:[id number] : 1955 69 From: Cale Ron DO Referring Dr: Cathy Ruiz INSTALLATION HELPER INSTALLATION HELPER-C Status: REG CLI Location: PSN Date: Sex: M C PSN 6 Minute Walk Test 6 Minute Walk Test 6 Minute Walk Test: 6 Minute Walk Test PSN:6-Minute Walk Test Start: 12/19/24 08:24 Freq: Status: Active Protocol: RESP.6MINW Document 12/19/24 08:24 [facility] (Rec: 12/19/24 08:30 [facility] [id number]) 6 Minute Walk Test Date Performed 12/19/24 [...] Dictated: 12/23/24 1020 Date Transcribed: 12/23/24 1020 Eight Arm Operator: Dr. Cale Ron, Signed [facility]06-10-2025 Hospital Discharge instructions Patient Education 12/17/2024 07:42:22 Epidural Steroid Injection, Care After [place] (40153) Epidural Steroid Injection, Care After Refer to [...] the bandage (dressing) after 24 hours. Take fvim-ecs-odwxkiq and prescription medicines only as told by your health care provider. Keep all follow-up visits as told by your health care provider. This is important. Contact a health care provider if: You have a fever. You continue to have pain and soreness around the injection site, even after taking krab-ryz-pucprih pain medicine. You have severe, sudden, or [...] 10/11/2011 Document Revised: 06/08/2018 Document Reviewed: 10/11/2016 [employer] Patient Education 2020 [employer]. 12/17/2024 07:42:22 PM Discharge Instructions Lumbar Epidural (CUSTOM) [facility] Discharge Instructions fo Lumbar Epidural [...] as needed for 24 48 hours. Contact [facility] to make an appointment to discuss the results of this procedure. The final report will be available to your referring physician within the next 10 days. If you have any unusual problems related to this procedure, please call [phone]. [facility] 06-10-2025 Summary of [...] 10:15 AM EDT MIRI OLIVAREZ [facility] Confirmed Wellness Medicare 02/12/2025 08:30 AM EDT MANASA ZENDEJAS DO [facility] Confirmed PM OV 03/17/2025 11:50 AM EDT RICKEY HUNG MD [facility] Confirmed Medications Please ask your [...] the bandage (dressing) after 24 hours. Take dvzw-llh-yyfprsk and prescription medicines only as told by your health care provider. Keep all follow-up visits as told by your health care provider. This is important. Contact a health care provider if: You have a fever. You continue to have pain and soreness around the injection site, even after taking gikb-hdz-zvmevfu pain medicine. You have severe, sudden, or [...] 10/11/2011 Document Revised: 06/08/2018 Document Reviewed: 10/11/2016 [employer]ot Patient Education 2020 [employer]. [facility] Discharge Instructions fo Lumbar Epidural [...] as needed for 24 48 hours. Contact [facility] to make an appointment to discuss the results of this procedure. The final report will be available to your referring physician within the next 10 days. If you have any unusual problems related to this procedure, please call [phone]. Additional Information VACCINATE! IT SAVES LIVES! Members of the community who have not yet received the COVID-19 vaccine and would like to receive it can visit one of [facility] vaccine clinics. There are many vaccine clinic locations within the [facility] [address] [facility]. For locations and available times, please visit [email or web address] It is important to note that some COVID mobile vaccine clinics are held outdoors and may be canceled in rainy or stormy conditions. To learn more about pediatric vaccinations (ages 5-11), we invite you to visit the [facility] webpage. https://www.[email or web address]/pages/5573-Ijbux-Kfivbosxtzd-Kiylcpvohj-Xktkw-Fnh stions.htmlTo learn more about the COVID-19 vaccine, we invite you to visit the CDC website for a list of frequently asked questions.https://www.cdc.gov/coronavirus/2019-ncov/vaccines/faq.html [facility] Patient Portal Access Instructions: Stay connected with your healthcare team and access your personal medical information anytime with the [facility] Patient Portal. Please follow the directions below to create your [facility] account: 1.Access the email account you provided upon registration to the hospital/physician office.2.Look for an invitation email from [facility].3.Open the email and access the invitation link: AcceptInvitation to [facility].4.Fill in the required perez to create your account. To access your account, visit [email or web address]. Click the blue button labeled Access Patient [...] who you will allowto register on the [facility] Patient Portal for access to your information. You can also access the [facility] Patient Portal on the [employer] mali. Simply click on Patient Portal and then log into your account. If you would like to receive a full copy of your medical records, please contact the [facility] Medical Records Department by calling [phone], Monday through Monday between 8 a.m. and [...] Call your local pharmacy or go to http://COH.[employer]/0O7Tf0s to find one close to you.3.Make use of household items: Use cat litter or old coffee grounds to dispose medications if other options arenot available. Mix your drugs with these household products, seal them in an airtight container andthrow it into the garbage. Call [facility]: [phone] to be sure your drugs can be [...] Materials Epidural Steroid Injection, Care After Abhilash (58859) PM Discharge Instructions Lumbar Epidural (CUSTOM) Medication Leaflets My discharge plan and instructions have been reviewed and explained to me and I,KRYSTYNA PADGETT understand my current condition and have read and understand these discharge instructions. I have received a written copy of the plan/instructions. If I have questions, I am aware that I should contactmy doctor. Patient/Leader Assembler Signature: Date/Time: Relationship to Patient: Witness Name/Signature: Date/Time: [facility] [id number] History and physical note History and Physical [...] with standing. Patient describes the pain as rfqa-jes-xisbfus. Patient reports that his pain is alleviated with injections as well as rest. Patient reports he has done physical therapy in the past but that it aggravated his pain. Patient does try to do home exercising and stretching as tolerated. Patient has not found any nmzf-ldk-faiacio medications that have been helpful. Patient does [...] test and then will follow-up with the manual qa tester. Patient is agreeable to treatment plan. Patient [...] 11/10/2022 Employment/School Status: Employed., 09/20/2022 Home/Environment Primary Rheostat Assembler: self., 06/24/2019 Nutrition/Health Caffeine intake amount: none., [...] Ordered: PM Inj Spine L/S With Imaging 38653(Epidural Injection, Lumbar/Sacral/Caudal w/ Imaging (PM Procedure) 77702), 11/07/24, RICKEY HUNG MD, Lumbar Epidural Steroid Injection L2-3, Local, Lumbar radicuolpathy, lumbar postlaminectomy syndrome, Future Order, PM Office, PM [place] 3. Lumbar radiculopathy Ordered Lumbar Epidural Steroid Injection L2-L3 with Dr. Hung Preprocedure instructions provided and discussed May use heat and ice for comfort as tolerated Encouraged gentle stretching as tolerated Ordered: PM Inj Spine L/S With Imaging 31979(Epidural Injection, Lumbar/Sacral/Caudal w/ Imaging (PM Procedure) 93436), 11/07/24, RICKEY HUNG MD, Lumbar Epidural Steroid Injection L2-3, Local, Lumbar radicuolpathy, lumbar postlaminectomy syndrome, Future Order, PM Office, PM [place] 4. Spondylolisthesis of lumbar region May use heat and ice for comfort as tolerated Encouraged gentle stretching as tolerated Portions of the record may have been created with voice recognition software. Occasional wrong-wordor vylij-w-haie substitutions may have occurred due to the [...] C screening test Nephrolithiasis Neurogenic claudication [place] (myocardial infarction) MARIELENA treated with BiPAP Osteoarthritis [...] [1] Specialty Office Visit Note; JESUS LAZAR CRISIS NURSE-MACHINE PRECISION ETCHER 11/07/2024 10:04 EDT Digitally Signed by RICKEY HUNG MD on 12/17/2024 07:20 AM [facility] [id number] Evaluation note* Diagnosis Onset Date Resolution Status Admit Date Lung nodule, solitary chronic Mar 2024 8:02am Morbid obesity chronic September 8:02am [facility] Work Phone: 1(805) 877-326803-31-2025 Evaluation note* Diagnosis Onset Date Resolution Status Admit Date Lung nodule, solitary chronic Mar 2024 8:02am Morbid obesity chronic September 8:02am Dyspnea acute October 25 7:34am Lung nodule, solitary chronic Apr 2024 7:34am Morbid obesity chronic October 7:34am MARIELENA (obstructive sleep apnea) chroni c October 25, 2024 7:34am [facility] Work Phone: 1(595) 326-355403-31-2025 Evaluation note* Diagnosis Onset Date Resolution Status [...] apnea) chroni c December 26, 2024 1:20pm [facility] Work Phone: [phone] Evaluation note* Diagnosis Onset Date Resolution Status [...] apnea) chroni c January 02, 2025 12:52pm [facility] Work Phone: 1(620) 838-678012-13-2024 Evaluation note* Diagnosis Onset Date Resolution Status Admit Date Lung nodule, solitary chronic Dec ember 2023 11:12am Morbid obesity chronic June 092023 11:12am MARIELENA (obstructive sleep apnea) chronic June 21, 024 11:12am Lung nodule, solitary chronic Mar 2024 8:02am Morbid obesity chronic September 8:02am [facility] Work Phone: 1(560) 268-993912-05-2024 Hospital Discharge instructions Patient Education 06/13/2024 08:40:35 [...] the bandage (dressing) after 24 hours. Take dknc-cyo-aypyslj and prescription medicines only as told by your health care provider. Keep all follow-up visits as told by your health care provider. This is important. Contact a health care provider if: You have a fever. You continue to have pain and soreness around the injection site, even after taking hvnu-ijo-juqyqsh pain medicine. You have severe, sudden, or [...] 10/11/2011 Document Revised: 06/08/2018 Document Reviewed: 10/11/2016 Scene[employer] Patient Education 2020 [employer]. 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 11/11/24 +/- 4 day(s), Lumbar epidural steroid injection with x-ray, Local, Neurogenic claudication, Left L2-3 with contrast, Hold Eliquis for 4 days for spinal procedure, Future Order, 4, day(s), 3, week(s), In Approximately, PM Office, PM Mass... 2. Lumbar postlaminectomy syndrome Ordered: PM Inj Spine L/S With Imaging 14685(Epidural Injection, Lumbar/Sacral/Caudal w/ Imaging (PM Procedure) 72207), *Est. 05/20/24 +/- 4 day(s), Lumbar epidural steroid injection with x-ray, Local, Neurogenic claudication, Left L2-3 with contrast, Hold Eliquis for 4 days for spinal procedure, Future Order, 4, day(s), 3, week(s), In Approximately, PM Office, PM Mass... 3. Spondylolisthesis of lumbar region Continue lumbar flexion exercises Ordered: PM Inj Spine L/S With Imaging 08051(Epidural Injection, Lumbar/Sacral/Caudal w/ Imaging (PM Procedure) 31561), *Est. 05/20/24 +/- 4 day(s), Lumbar epidural [...] Ordered: PM Inj Spine L/S With Imaging 27524(Epidural Injection, Lumbar/Sacral/Caudal w/ Imaging (PM Procedure) 09387), *Est. 05/20/24 +/- 4 day(s), Lumbar epidural [...] C screening test Nephrolithiasis Neurogenic claudication [place] (myocardial infarction) MARIELENA treated with BiPAP Osteoarthritis [...] RICKEY HUNG MD on 06/13/2024 08:45 AM [facility] [id number] Summary of episode note Discharge Instructions Thank [...] StatusPC OV 08/14/2024 10:00 AM MANASA SAUCEDO [facility] Confirmed CV OV 01/13/2025 10:15 AM EDT [facility] [place] Confirmed Medications Please ask your [...] the bandage (dressing) after 24 hours. Take muxk-dfb-dbgmobs and prescription medicines only as told by your health care provider. Keep all follow-up visits as told by your health care provider. This is important. Contact a health care provider if: You have a fever. You continue to have pain and soreness around the injection site, even after taking thhw-sun-wejlfed pain medicine. You have severe, sudden, or [...] 10/11/2011 Document Revised: 06/08/2018 Document Reviewed: 10/11/2016 [employer]ot Patient Education 2020 [employer]. Additional Information VACCINATE! IT SAVES LIVES! Members of the community who have not yet received the COVID-19 vaccine and would like to receive it can visit one of [facility] vaccine clinics. There are many vaccine clinic locations within the [facility]. For locations and available times, please visit [email or web address]/. It is important to note that some COVID mobile vaccine clinics are held outdoors and may be canceled in rainy or stormy conditions. To learn more about pediatric vaccinations (ages 5-11), we invite you to visit the [facility] webpage. https://www.[email or web address].org/pages/1747-Mnhcr-Jfmbtcuzugv-Areiuakokl-Spchk-Gtd stions.htmlTo learn more about the COVID-19 vaccine, we invite you to visit the CDC website for a list of frequently asked questions.https://www.cdc.gov/coronavirus/2019-ncov/vaccines/faq.html [facility] [employer] Patient Portal Access Instructions: Stay connected with your healthcare team and access your personal medical information anytime with the [facility] [employer] Patient Portal. Please follow the directions below to create your [employer] account: 1.Access the email account you provided upon registration to the hospital/physician office.2.Look for an invitation email from [facility].3.Open the email and access the invitation link: AcceptInvitation to [facility] [employer].4.Fill in the required perez to create your account. To access your account, visit [email or web address]. Click the blue button labeled Access Patient Portal and then log in with the username and password that you created in the steps above. You will be able to view your test results, lab results, a summary of your visits, upcoming appointments and more. There is also a convenient messaging option where you can send secure messages to your p SpokenLayervider. In addition, you will have the ability to download any documents or summaries to your computer and/or send the information securely to a physician. Remember that your healthcare information is confidential, so carefully consider who you will allowto register on the [facility] [employer] Patient Portal for access to your information. You can also access the [facility] [employer] Patient Portal on the [facility] [place] [facility] mali. Simply click on Patient Portal and then log into your account. If you would like to receive a full copy of your medical records, please contact the [facility] Medical Records Department by calling [phone], Monday through Monday between 8 a.m. and [...] Call your local pharmacy or go to http://bit.[employer]/7H9Kv1s to find one close to you.3.Make use of household items: Use cat litter or old coffee grounds to dispose medications if other options arenot available. Mix your drugs with these household products, seal them in an airtight container andthrow it into the garbage. Call [facility]: [phone] to be sure your drugs can be [...] am aware that I should contactmy doctor. Patient/Leader Assembler Signature: Date/Time: Relationship to Patient: Witness Name/Signature: Date/Time: [facility] [id number] Hospital Discharge instructions Patient Education 01/30/2024 07:58:57 Epidural Steroid Injection, Care After Hung (68524) Epidural Steroid Injection, Care After Refer to [...] the bandage (dressing) after 24 hours. Take hzba-uxa-ivkszdd and prescription medicines only as told by your health care provider. Keep all follow-up visits as told by your health care provider. This is important. Contact a health care provider if: You have a fever. You continue to have pain and soreness around the injection site, even after taking wqvw-ukq-bdawwvc pain medicine. You have severe, sudden, or [...] 10/11/2011 Document Revised: 06/08/2018 Document Reviewed: 10/11/2016 [employer]ot Patient Education 2020 [employer]. [facility] 07-23-2024 Summary of episode [...] Medicare 02/09/2024 09:00 AMEDT MANASA ZENDEJAS DO [facility] Confirmed CV OV 01/13/2025 10:15 AM EDT Kina [facility] [place] Confirmed The Following Activity and Diet Have [...] the bandage (dressing) after 24 hours. Take kaoc-ydl-vcqrxxm and prescription medicines only as told by your health care provider. Keep all follow-up visits as told by your health care provider. This is important. Contact a health care provider if: You have a fever. You continue to have pain and soreness around the injection site, even after taking ekop-gzv-sldzbjy pain medicine. You have severe, sudden, or [...] 10/11/2011 Document Revised: 06/08/2018 Document Reviewed: 10/11/2016 [employer] Patient Education 2020 [employer]. Additional Information VACCINATE! IT SAVES LIVES! Members of the community who have not yet received the COVID-19 vaccine and would like to receive it can visit one of [facility] vaccine clinics. There are many vaccine clinic locations within the [facility]. For locations and available times, please visit [email or web address]/. It is important to note that some COVID mobile vaccine clinics are held outdoors and may be canceled in rainy or stormy conditions. To learn more about pediatric vaccinations (ages 5-11), we invite you to visit the [facility] webpage. https://www.[facility].org/pages/2527-Yinlx-Uddvzgmqapq-Mgtjgvnuvm-Eedmk-Rhz stions.htmlTo learn more about the COVID-19 vaccine, we invite you to visit the CDC website for a list of frequently asked questions.https://www.cdc.gov/coronavirus/2019-ncov/vaccines/faq.html [facility] Patient Portal Access Instructions: Stay connected with your healthcare team and access your personal medical information anytime with the [facility] Patient Portal. Please follow the directions below to create your [facility] account: 1.Access the email account you provided upon registration to the hospital/physician office.2.Look for an invitation email from [facility].3.Open the email and access the invitation link: AcceptInvitation to [facility] [employer].4.Fill in the required perez to create your account. To access your account, visit [email or web address]. Click the blue button labeled Access Patient [...] who you will allowto register on the [facility] [employer] Patient Portal for access to your information. You can also access the [facility] [employer]Chart Patient Portal on the [facility] [place] [facility] mali. Simply click on Patient Portal and then log into your account. If you would like to receive a full copy of your medical records, please contact the [facility] Medical Records Department by calling [phone], Monday through Monday between 8 a.m. and [...] Call your local pharmacy or go to http://bit.ly/9W3Ws1n to find one close to you.3.Make use of household items: Use cat litter or old coffee grounds to dispose medications if other options arenot available. Mix your drugs with these household products, seal them in an airtight container andthrow it into the garbage. Call [facility]: [phone] to be sure your drugs can be [...] Materials Epidural Steroid Injection, Care After Hung (67510) Medication Leaflets My discharge plan and instructions have been reviewed and explained to me and I,KRYSTYNA PADGETT understand my current condition and have read and understand these discharge instructions. I have received a written copy of the plan/instructions. If I have questions, I am aware that I should contactmy doctor. 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 It summertime now so he has less frequent shifts We do have permission from scaler from September to ask him to hold [...] 11/10/2022 Employment/School Status: Employed., 09/20/2022 Home/Environment Primary Rheostat Assembler: self., 06/24/2019 Nutrition/Health Caffeine intake amount: none., [...] C screening test Nephrolithiasis Neurogenic claudication [place] (myocardial infarction) MARIELENA treated with BiPAP Osteoarthritis [...] 01/30/2024 07:41 AM [facility] [id number] Hospital Discharge instructions Patient Education 07/27/2023 10:44:09 [...] the bandage (dressing) after 24 hours. Take epnv-hpi-epncvgo and prescription medicines only as told by your health care provider. Keep all follow-up visits as told by your health care provider. This is important. Contact a health care provider if: You have a fever. You continue to have pain and soreness around the injection site, even after taking mzli-byt-sylmxga pain medicine. You have severe, sudden, or [...] Document Reviewed: 10/11/2016 Elsevier Patient Education 2020 [employer]. [facility] 01-18-2024 Summary of [...] InformationPC OV 08/11/2023 10:00 AM MANASA SAUCEDO [facility] CV OV 01/15/2024 10:30 AM EDT [facility] The Following Activity and Diet Have Been [...] the bandage (dressing) after 24 hours. Take ejto-nxo-ihihkfn and prescription medicines only as told by your health care provider. Keep all follow-up visits as told by your health care provider. This is important. Contact a health care provider if: You have a fever. You continue to have pain and soreness around the injection site, even after taking rvvl-lrw-jyzjgff pain medicine. You have severe, sudden, or [...] 10/11/2011 Document Revised: 06/08/2018 Document Reviewed: 10/11/2016 [employer] Patient Education 2020 [employer]. Additional Information VACCINATE! IT SAVES LIVES! Members of the community who have not yet received the COVID-19 vaccine and would like to receive it can visit one of [facility] vaccine clinics. There are many vaccine clinic locations within the [facility]. For locations and available times, please visit [email or web address]/. It is important to note that some COVID mobile vaccine clinics are held outdoors and may be canceled in rainy or stormy conditions. To learn more about pediatric vaccinations (ages 5-11), we invite you to visit the MyRegistry.com Childrens webpage. https://www.OneSpots.org/pages/7842-Dpxue-Izkmbcocfqb-Refugrhlsi-Vtxdg-Unn stions.htmlTo learn more about the COVID-19 vaccine, we invite you to visit the CDC website for a list of frequently asked questions.https://www.cdc.gov/coronavirus/2019-ncov/vaccines/faq.html [facility] Patient Portal Access Instructions: Stay connected with your healthcare team and access your personal medical information anytime with the [facility] Patient Portal. Please follow the directions below to create your [facility] account: 1.Access the email account you provided upon registration to the hospital/physician office.2.Look for an invitation email from [facility].3.Open the email and access the invitation link: AcceptInvitation to [employer].4.Fill in the required perez to create your account. To access your account, visit [email or web address]. Click the blue button labeled Access Patient [...] who you will allowto register on the [facility] for access to your information. You can also access the [facility] Patient Portal on the [place] [facility] mali. Simply click on Patient Portal and then log into your account. If you would like to receive a full copy of your medical records, please contact the [facility] Medical Records Department by calling [phone], Monday through Monday between 8 a.m. and [...] Call your local pharmacy or go to [email or web address].[email or web address] to find one close to you.3.Make use of household items: Use cat litter or old coffee grounds to dispose medications if other options arenot available. Mix your drugs with these household products, seal them in an airtight container andthrow it into the garbage. Call [facility]: [phone] to be sure your drugs can be [...] am aware that I should contactmy doctor. Patient/Leader Assembler Signature: Date/Time: Relationship to Patient: Witness Name/Signature: Date/Time: [facility] [id number] History and physical note History and Physical [...] Hung who is being followed up by [facility] for chronic pain. Today's pain is 7/10. Described as stabbing and gqim-uvr-ulcbbpd. Today's pain is located in the left [...] no assistive device. I have reviewed the [place] automated Rx reporting system reported for this [...] it became legal in the state of [place] and it was explained clearly that I [...] 11/10/2022 Employment/School Status: Employed., 09/20/2022 Home/Environment Primary Rheostat Assembler: self., 06/24/2019 Nutrition/Health Caffeine intake amount: none., [...] blood thinner request form filled out by [facility] that he is to stop [...] C screening test Nephrolithiasis Neurogenic claudication [place] (myocardial infarction) MARIELENA treated with BiPAP Osteoarthritis [...] Specialty Office Visit Note; SOLO, MARCOSMayo Cohn APRN-BLOCK PAVER 06/30/2023 13:32 EST Digitally Signed by RICKEY HUNG MD on 07/27/2023 10:09 AM [facility] [id number] Hospital Discharge instructions Patient Education 03/15/2023 09:20:56 Epidural Steroid Injection, Care After Abhilash (31281) Epidural Steroid Injection, Care After Refer to [...] the bandage (dressing) after 24 hours. Take zfqt-pmj-ycftqie and prescription medicines only as told by your health care provider. Keep all follow-up visits as told by your health care provider. This is important. Contact a health care provider if: You have a fever. You continue to have pain and soreness around the injection site, even after taking aozh-szm-hchqish pain medicine. You have severe, sudden, or [...] 10/11/2011 Document Revised: 06/08/2018 Document Reviewed: 10/11/2016 [employer] Patient Education 2020 [employer]. [facility] 09-[facility]20[facility] Summary of [...] OV 08/11/2023 10:00 AM EST MANASA ZENDEJAS [facility] CV OV 01/15/2024 10:30 AM EDT [facility] Heart & Vascular [facility] [place] Allergies rosuvastatin (severe myalgias) Betaxolol Hydrochloride (Low [...] the bandage (dressing) after 24 hours. Take vozk-bst-wvjlgzx and prescription medicines only as told by your health care provider. Keep all follow-up visits as told by your health care provider. This is important. Contact a health care provider if: You have a fever. You continue to have pain and soreness around the injection site, even after taking mfsc-efy-hbzioad pain medicine. You have severe, sudden, or [...] 10/11/2011 Document Revised: 06/08/2018 Document Reviewed: 10/11/2016 [employer] Patient Education 2020 [employer]. Additional Information VACCINATE! IT SAVES LIVES! Members of the community who have not yet received the COVID-19 vaccine and would like to receive it can visit one of [facility] vaccine clinics. There are many vaccine clinic locations within the [facility]. For locations and available times, please visit [email or web address]/. It is important to note that some COVID mobile vaccine clinics are held outdoors and may be canceled in rainy or stormy conditions. To learn more about pediatric vaccinations (ages 5-11), we invite you to visit the [employer] webpage. https://www.OneSpots.org/pages/0126-Xakcr-Dkxaabziipf-Kjejpvnbio-Fwtch-Zgd stions.htmlTo learn more about the COVID-19 vaccine, we invite you to visit the CDC website for a list of frequently asked questions.https://www.cdc.gov/coronavirus/2019-ncov/vaccines/faq.html [facility] Patient Portal Access Instructions: Stay connected with your healthcare team and access your personal medical information anytime with the [facility] Patient Portal. Please follow the directions below to create your [facility] account: 1.Access the email account you provided upon registration to the hospital/physician office.2.Look for an invitation email from [facility].3.Open the email and access the invitation link: AcceptInvitation to [facility].4.Fill in the required perez to create your account. To access your account, visit [email or web address]. Click the blue button labeled Access Patient [...] who you will allowto register on the [place] [employer]Chart Patient Portal for access to your information. You can also access the [place] [employer]Chart Patient Portal on the [place] [facility] mali. Simply click on Patient Portal and then log into your account. If you would like to receive a full copy of your medical records, please contact the [facility] Medical Records Department by calling [phone], Monday through Monday between 8 a.m. and [...] Call your local pharmacy or go to [email or web address] [email or web address] to find one close to you.3.Make use of household items: Use cat litter or old coffee grounds to dispose medications if other options arenot available. Mix your drugs with these household products, seal them in an airtight container andthrow it into the garbage. Call [facility]: [phone] to be sure your drugs can be [...] Materials Epidural Steroid Injection, Care After Abhilash (46895) Medication Leaflets My discharge plan and instructions have been reviewed and explained to me and I,KRYSTYNA PADGETT understand my current condition and have read and understand these discharge instructions. I have received a written copy of the plan/instructions. If I have questions, I am aware that I should contactmy doctor. Patient/Leader Assembler Signature: Date/Time: Relationship to Patient: Witness Name/Signature: Date/Time: [facility] [id number] History and physical note History and Physical [...] He describes it as an aching and uoxd-gid-drlzizl sensation affecting the left lower back radiating [...] [2] I have reviewed and assessed the [place] Automated Rx Reporting System (OARRS) report for [...] plantarflexion are intact. MUSCULOSKELETAL: Gait normal . Relay Motorman strength equal Strengths 5/5 in upper and 5/5 in lower extremities. Lumbar spine range of motion intact. Good muscle tone to upper and lower extremities. Tenderness when palpating the lower lumbar spine, more to the left. Muscle tension noted throughout without trigger points. Social History Alcohol Type: Wine., 11/10/2022 Employment/School Status: Employed., 09/20/2022 Home/Environment Primary Rheostat Assembler: self., 06/24/2019 Nutrition/Health Caffeine intake amount: none., [...] Ordered: PM Inj Spine L/S With Imaging 26210 2. Lumbar stenosis with neurogenic claudication Ordered: PM Inj Spine L/S With Imaging 84711 3. Lumbar radiculopathy Ordered: PM Inj Spine L/S With Imaging 96754 4. Anticoagulated by anticoagulation treatment Ordered: PM Inj Spine L/S With Imaging 28760 Problem List/Past Medical History Ongoing Actinic keratoses [...] C screening test Nephrolithiasis Neurogenic claudication [place] (myocardial infarction) MARIELENA treated with BiPAP Osteoarthritis [...] [1] Specialty Office Visit Note; GOKUL JANG APRN-MACHINE PRECISION ETCHER 02/14/2023 07:52 EDT Digitally Signed by RICKEY HUNG MD on 03/15/2023 08:47 AM [facility] [id number] Discharge summary Hospital Course Patient underwent uncomplicated [...] EDT Where: [address] [facility] [place] [address]- [phone] Follow Up Appointments No qualifying data available. Follow Up Labs/Studies Discharge Labs No Follow-up Labs Discharge Studies No Follow-up Studies Discharge Diet No qualifying data available. Discharge Activity No qualifying data available. Digitally Signed by HERVE OLIVAREZ MD on 11/11/2022 01:52 PM [id number] Discharge instructions Patient Education 11/11/2022 09:21:51 [...] need to report the following to your fashion styling intern: ?Any draining or oozing from the site [...] Document Reviewed: 06/27/2014 ExitCare Patient Information 2015 [facility], [employer]. This information is not intended to replace advicegiven to you by your health care provider. Make sure you discuss any questions you have with your health care provider. Follow Up Care 09/20/2022 14:22:03 With:HERVE OLIVAREZ MD Address: [address] [place] [address] [address] [facility] [place] [address]- [phone] When:01/13/2023 11:15:00 [facility] 05-05-2023 Summary of episode note Discharge Instructions Thank you for allowing [place] to assist you with your healthcare needs. The following is importantdischarge information regarding your hospital visit. Your Care Team MANASA ZENDEJAS DO What to do next Scheduled Follow-Up Appointments Appointment Type When With Where Contact InformationPC OV 11/16/2022 09:30 AM EDT MANASA ZENDEJAS [facility] PET/CT Initial Staging Tumor Skull Base 11/21/2022 07:15 AM EDT Radiology [phone] PM OV 11/25/2022 12:00 PM EDT RICKEY HUNG MD Pain Management CV OV 01/13/2023 11:15 AM EDT [facility] Vascular [facility] Follow Up Appointments Follow Up with HERVE OLIVAREZ MD When 01/13/2023 11:15 AM EDT Where: [address] [place] [address]- [phone] Allergies rosuvastatin (severe myalgias) Betaxolol Hydrochloride (Low heart rate) CloNIDine HCl (Unknown) lisinopril (Angioedema) Medications Please ask your primary doctor or pharmacist before taking any other medication not listed, including over the counter drugs, herbal medications, vitamins and or supplements as they may interact [facility] medications. What How Much When Instructions Last Dose New pantoprazole (pantoprazole 40 mg oral enteric coated tablet) 1 tab(s) by mouth Once a day Pickup at [facility] #[id number] Unchanged allopurinol (allopurinol 100 mg oral tablet) [...] tab(s) Oral BID Pharmacy Information [facility] #[id number]: [address] [place], [place] [phone] Please take this list to your next [...] need to report the following to your fashion styling intern: ? Any draining or oozing from the [...] Document Reviewed: 06/27/2014 ExitCare Patient Information 2015 [facility], [employer]. This information is not intended to replace advicegiven to you by your health care provider. Make sure you discuss any questions you have with your health care provider. Additional Information VACCINATE! IT SAVES LIVES! Members of the community who have not yet received the COVID-19 vaccine and would like to receive it can visit one of [facility] vaccine clinics. There are many vaccine clinic locations within the [facility]. For locations and available times, please visit [email or web address] [email or web address] [email or web address]/. It is important to note that some COVID mobile vaccine clinics are held outdoors and may be canceled in rainy or stormy conditions. To learn more about pediatric vaccinations (ages 5-11), we invite you to visit the MyRegistry.com Childrens webpage. https://www.[facility]ronchildrens.org/pages/8437-Zwyae-Ykjdzmbhswz-Amitsdngxr-Vxkzt-Hcu stions.htmlTo learn more about the COVID-19 vaccine, we invite you to visit the CDC website for a list of frequently asked questions. https://www.cdc.gov/coronavirus/2019-ncov/vaccines/faq.html [facility] Patient Portal Access Instructions: Stay connected with your healthcare team and access your personal medical information anytime with the [employer] Patient Portal.If you would like a full copy of your medical records, please contact the [facility] Medical Records Department, Monday through Monday between 8a.m. and 4:30p.m. Please follow the directions below to access the portal: 1.Access the email account you provided upon registration to the hospital.2.Look for an invitation email from [facility].3.Open the email and access the invitation link: Accept Invitation to [facility]4.Fill in the required perez to create your account. Sign into [email or web address] with your username and password that you [...] you will allow to register on the [employer] Patient Portal for access to your information. You can also access the [facility] Patient Portal on the [employer] mali. Simply click on Health Records under [employer] and then click on the Soundvamp logo. HOW TO SAFELY DISPOSE OF PRESCRIPTION [...] Call your local pharmacy or go to http://COH.[employer]/[email or web address] to find one close to you.3.Make use of household items: Use cat litter or old coffee grounds to dispose medications if other options arenot available. Mix your drugs with these household products, seal them in an airtight container andthrow it into the garbage. Call [facility]: [phone] to be sure your drugs can be [...] am aware that I should contactmy doctor. Patient/Leader Assembler Signature: Date/Time: Relationship to Patient: Witness Name/Signature: Date/Time: [facility]pl[facility]w58-[facility]-9721 Evaluation + Plan noteExtracted from: Title:History and Physical Author:HERVE OLIVAREZ MD Date:11/10/22 Orders: Ablation RF-CARTO - CV IV Catheter Insertion/Care Prn Adapter Sign Consent Future Appointments Appointment Date:11/16/2022 09:30:00 AM Scheduled Provider:MANASA ZENDEJAS DO Location:[facility] Appointment Type:PC OV Appointment Date:11/21/2022 07:15:00 AM Scheduled Provider: Location:[facility] Appointment Type:PET/CT Initial Staging Tumor Skull Base Appointment Date:11/25/2022 12:00:00 PM Scheduled Provider:RICKEY HUNG MD Location:PM Office Appointment Type:PM OV Appointment Date:01/13/2023 11:15:00 AM Scheduled Provider: Location:[facility] Appointment Type:CV OV Future Scheduled Tests Radiology* PET/CT 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 11/21/22 [facility] 05-04-2023 Anesthesiology Consult note Patient: KRYSTYNA [...] [place] APONTE MD on 11/10/2022 11:38 AM [facility] HospitalIkatoecd24-68-4417 History and physical note History of Present [...] C screening test Nephrolithiasis Neurogenic claudication [place] (myocardial infarction) Osteoarthritis Previous back surgery PSA [...] 11/10/2022 Employment/School Status: Employed., 09/20/2022 Home/Environment Primary Rheostat Assembler: self., 06/24/2019 Nutrition/Health Caffeine intake amount: none., [...] HERVE OLIVAREZ MD on 11/10/2022 11:05 AM [facility]uvt[facility]ri84-18-3295 Anesthesiology Consult note Patient: KRYSTYNA PADGETT Age: [...] Daily, # 90 tab(s), 1 Refill(s), Pharmacy: [facility], 167, cm, 05/19/22 11:15:00 EST, Height allopurinol 100 mg oral tablet: Dose : 100 mg = 1 tab(s), Oral, BID, # 180 tab(s), 1 Refill(s), Pharmacy: [facility], 167, cm, 05/19/22 11:15:00 EST, Height, kg, 05/19/22 11:15:00 EST, Dosing Weight amLODIPine 5 mg oral tablet: Dose : 5 mg = 1 tab(s), Oral, qDay, # 90 tab(s), 1 Refill(s), Pharmacy: [facility], 167, cm, 05/19/22 11:15:00 EST, Height hydrochlorothiazide-spironolactone 25 mg-25 mg oral tablet: Dose = 1 tab(s), Oral, Daily, # 90 tab(s), 1 Refill(s), Pharmacy: [facility], 167, cm, 05/19/22 11:15:00 EST, Height nitroglycerin 0.4 mg sublingual tablet: 0.4 mg Dose = 1 tab(s), Sublingual, q5min, PRN for chest pain, not to exceed 3 doses/15 min--if pain persists, seek medical attention, # 100 tab(s), 0 Refill(s), Pharmacy: [facility], 167, cm, 05/19/22 11:15:00 EST, Height Documented Medications Documented Eliquis 5 mg oral tablet: Dose : 5 mg = 1 tab(s), Oral, BID, 0 Refill(s), 122.25 potassium citrate 15 mEq oral tablet, extended release: See Instructions, 1 tab(s) Oral BID, 0 Refill(s), No qualifying data available Problem list: Medical At low risk for fall / SNOMED CT 6830525655 / Confirmed Aortic atherosclerosis / SNOMED CT 652450049 / Confirmed Afib / SNOMED CT 89608242 / Confirmed BMI 45.0-49.9, adult / SNOMED CT 8846043878 / Confirmed CAD - Coronary artery disease / SNOMED CT 0355742923 / Confirmed Chest pain / SNOMED CT 37534638 / Confirmed DDD (degenerative disc disease), lumbar / SNOMED CT 47510714 / Confirmed Anticoagulated by anticoagulation treatment / SNOMED CT 240000811 / Confirmed Gout / SNOMED CT 357167968 / Confirmed Previous back surgery / SNOMED CT 672623099 / Confirmed HLD - Hyperlipidemia / SNOMED CT 398970697 / Confirmed Hypersomnolence / SNOMED CT 501244689 / Confirmed Hypertension / SNOMED CT 84310463 / Confirmed Immunization due / SNOMED CT 635597980 / Confirmed Nephrolithiasis / SNOMED CT 422008935 / Confirmed Lumbar postlaminectomy syndrome / SNOMED CT 003614031 / Confirmed Lumbar radiculopathy / SNOMED CT 753857243 / Confirmed Spondylolisthesis of lumbar region / SNOMED CT 4627738250 / Confirmed Immunization refused / SNOMED CT 8040376937 / Confirmed Morbid obesity / SNOMED CT 636136509 / Confirmed Actinic keratoses / SNOMED CT 7208472495 / Confirmed PVCs (premature ventricular contractions) / SNOMED CT 7068964423 / Confirmed Neurogenic claudication / SNOMED CT 833312466 / Confirmed Lung nodule / SNOMED CT 2799816289 / Confirmed Severe obstructive sleep apnea / SNOMED CT 107789672 / Confirmed [place] (myocardial infarction) / SNOMED CT 3401862 / Confirmed Osteoarthritis / SNOMED CT 2776254164 / Confirmed History of bilevel positive airway pressure (BiPAP) therapy / SNOMED CT 7486430740 / Confirmed Encounter for well adult exam with abnormal findings / SNOMED CT 777178618 / Confirmed Screening for prostate cancer / SNOMED CT 302158378 / Confirmed Screen for colon cancer / SNOMED CT 267085764 / Confirmed Depression screen / SNOMED CT 599561759 / Confirmed PSA elevation / SNOMED CT 0536888191 / Confirmed Screening due / SNOMED CT 844825903 / Confirmed Lumbar stenosis with neurogenic claudication / SNOMED CT 44731932 / Confirmed Statin intolerance / SNOMED CT 5024259101 / Confirmed Need for hepatitis C screening test / SNOMED CT 433732292 / Confirmed, Active Problems (37) Actinic keratoses [...] C screening test Nephrolithiasis Neurogenic claudication [place] (myocardial infarction) Osteoarthritis Previous back surgery PSA [...] auto-populated from documented surgical case Cardiac catheterisation ([id number]) on 11/08/2015 at 60 Years. Left knee (100356719) on 01/23/2015 at 59 Years. Left shoulder (216025535) on 08/22/2013 at 58 Years. Hernia (210276251) in the month of 04/2009 at 53 Years. Right shoulder (487459901) on 02/19/2009 at 53 Years. Back (178090899). Social History Social & Psychosocial Habits Alcohol 11/10/2022 Type: Wine Comment: occasional - 06/24/2019 13:37 - Bharti Arboleda RN Employment/School 09/20/2022 Status: Employed Substance Abuse 06/24/2019 Use: Never Tobacco 06/24/2019 Tobacco Use: Never (less than 100 in l 11/10/2022 Tobacco Use: Former smoker, quit more Type: Cigarettes Home/Environment 06/24/2019 Primary Rheostat Assembler: self Nutrition/Health 06/24/2019 Caffeine intake amount: none . Physical Examination Vital Signs(last 24 hrs) Last Charted Resp Rate 16 br/min (NOVEMBER 10 06:22) XUZ477 mmHg (NOVEMBER 10 06:22) DBP75 mmHg (NOVEMBER 10 06:22) BMI41.47 (NOVEMBER 10 06:22) Measurements from flowsheet : Measurements 11/10/2022 6:22 EDT Height 167.6 cm Height in inches 66 inch(es) Admission Weight 116.5 kg Weight Lbs 256.3 lb Weight Method Actual Enterprise Body Weight 63.76 kg Body Mass Index [...] Documentation reviewed: Current records. Assessment and Plan [place] [employer] of Anesthesiologists (ASA) physical status classification: Class III. Anesthetic Preoperative Plan Premedication: intravenous. Anesthetic technique: General. Induction: intravenously. Maintenance airway: Oral endotracheal tube. Special Monitoring: Arterial line. Postoperative pain management: Per surgeon. Informed consent: signed by patient. Notes: A-Fib. Digitally Signed by CINDY MAHER MD on 11/10/2022 07:50 AM [id number] Discharge instructions Patient Education 09/21/2022 08:40:58 [...] the bandage (dressing) after 24 hours. Take rbta-zaq-uoxzrsw and prescription medicines only as told by your health care provider. Keep all follow-up visits as told by your health care provider. This is important. Contact a health care provider if: You have a fever. You continue to have pain and soreness around the injection site, even after taking ltpz-bnx-hhmiodf pain medicine. You have severe, sudden, or [...] 10/11/2011 Document Revised: 06/08/2018 Document Reviewed: 10/11/2016 [employer] Patient Education 2020 [employer] [facility] 03-15-2023 Summary of [...] 11/16/2022 09:30 AM EDT MANASA ZENDEJAS DO [facility] CV OV 12/21/2022 11:45 AM EDT [facility] [place] Allergies rosuvastatin (severe myalgias) Betaxolol Hydrochloride (Low [...] the bandage (dressing) after 24 hours. Take yavg-eez-wemhkuc and prescription medicines only as told by your health care provider. Keep all follow-up visits as told by your health care provider. This is important. Contact a health care provider if: You have a fever. You continue to have pain and soreness around the injection site, even after taking bahc-dsr-likwcgf pain medicine. You have severe, sudden, or [...] 10/11/2011 Document Revised: 06/08/2018 Document Reviewed: 10/11/2016 [employer] Patient Education 2020 [employer] Additional Information VACCINATE! IT SAVES LIVES! Members of the community who have not yet received the COVID-19 vaccine and would like to receive it can visit one of [facility] vaccine clinics. There are many vaccine clinic locations within the [facility]. For locations and available times, please visit [email or web address]/. It is important to note that some COVID mobile vaccine clinics are held outdoors and may be canceled in rainy or stormy conditions. To learn more about pediatric vaccinations (ages 5-11), we invite you to visit the My[employer] Childrens webpage. https://www.[facility].org/pages/0041-Ascvs-Wqojzddiugh-Ncanajznac-Mvfgu-Xgp stions.htmlTo learn more about the COVID-19 vaccine, we invite you to visit the CDC website for a list of frequently asked questions. https://www.cdc.gov/coronavirus/2019-ncov/vaccines/faq.html [place] [employer] Patient Portal Access Instructions: Stay connected with your healthcare team and access your personal medical information anytime with the [employer] Patient Portal.If you would like a full copy of your medical records, please contact the [facility] Medical Records Department, Monday through Monday between 8a.m. and 4:30p.m. Please follow the directions below to access the portal: 1.Access the email account you provided upon registration to the hospital.2.Look for an invitation email from [facility].3.Open the email and access the invitation link: Accept Invitation to [employer]4.Fill in the required perez to create your account. Sign into [email or web address] with your username and password that you [...] you will allow to register on the [employer] Patient Portal for access to your information. You can also access the [employer] Patient Portal on the [employer] mal[place]. Simply click on Health Records under [employer] and then click on the [employer]vamp logo. HOW TO SAFELY DISPOSE OF PRESCRIPTION [...] Call your local pharmacy or go to [email or web address] to find one close to you.3.Make use of household items: Use cat litter or old coffee grounds to dispose medications if other options arenot available. Mix your drugs with these household products, seal them in an airtight container andthrow it into the garbage. Call [facility]: [phone] to be sure your drugs can be [...] am aware that I should contactmy doctor. Patient/Leader Assembler Signature: Date/Time: Relationship to Patient: Witness Name/Signature: Date/Time: [facility] [id number] History and physical note History and Physical [...] Patient says that he talk to his scaler in [place] who says that theoretically he would have permission to stop Eliquis for epidural steroid injectionsif needed. Patient says that he is going to see his scaler the first week of September again. But he would like to schedule the epidural steroid injection. 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 I have reviewed the [place] Automated Rx Reporting System (OARRS) report for [...] is asymptomatic Social History Alcohol Home/Environment Primary Rheostat Assembler: self., 06/24/2019 Nutrition/Health Caffeine intake amount: none., 06/24/2019 Substance Abuse Use: Never., 06/24/2019 Tobacco Nicotine Use: Never (less than 100 in lifetime)., 06/24/2019 Family History Breast cancer: Sister. Diabetes: Mother. Heart disease: Mother and Father. Hypertension: Mother. Stroke: Father. Assessment/Plan 1. Lumbar postlaminectomy syndrome Ordered: Ambulatory Office Communication Order PM Inj Spine L/S With Imaging 33024 2. Lumbar stenosis with neurogenic claudication Very [...] Order PM Inj Spine L/S With Imaging 80807 3. Spondylolisthesis of lumbar region Ordered: Ambulatory Office Communication Order PM Inj Spine L/S With Imaging [id number] 4. Morbid obesity Ordered: Ambulatory Office Communication Order PM Inj Spine L/S With Imaging [id number] 5. Anticoagulated by anticoagulation treatment New diagnosis of atrial fibrillation has now been on Eliquis for about 3 months Ordered: PM Inj Spine L/S With Imaging 76309 Problem List/Past Medical History Ongoing Actinic keratoses [...] C screening test Nephrolithiasis Neurogenic claudication [place] (myocardial infarction) Osteoarthritis Previous back surgery PSA [...] RICKEY HUNG MD on 09/21/2022 08:40 AM [facility] [id number] Hospital Discharge instructions Patient Education 04/06/2022 08:20:13 [...] the bandage (dressing) after 24 hours. Take pjxb-vzn-rqwkezp and prescription medicines only as told by your health care provider. Keep all follow-up visits as told by your health care provider. This is important. Contact a health care provider if: You have a fever. You continue to have pain and soreness around the injection site, even after taking gqiv-pyi-zavgwgx pain medicine. You have severe, sudden, or [...] 10/11/2011 Document Revised: 06/08/2018 Document Reviewed: 10/11/2016 [employer] Patient Education 2019 [employer]. [facility] 09-28-2022 Summary of [...] the bandage (dressing) after 24 hours. Take xged-wil-cfsasmd and prescription medicines only as told by your health care provider. Keep all follow-up visits as told by your health care provider. This is important. Contact a health care provider if: You have a fever. You continue to have pain and soreness around the injection site, even after taking mxgx-nca-ipihmac pain medicine. You have severe, sudden, or [...] 10/11/2011 Document Revised: 06/08/2018 Document Reviewed: 10/11/2016 [employer] Patient Education 2020 [employer] Additional Information VACCINATE! IT SAVES LIVES! Members of the community who have not yet received the COVID-19 vaccine and would like to receive it can visit one of [facility] vaccine clinics. There are many vaccine clinic locations within the [facility]. For locations and available times, please visit [email or web address]/. It is important to note that some COVID mobile vaccine clinics are held outdoors and may be canceled in rainy or stormy conditions. To learn more about pediatric vaccinations (ages 5-11), we invite you to visit the MyRegistry[employer]com Childrens webpage. https://www.[facility].org/pages/7422-Xjkdt-Axkeojyqjyt-Oomzsqrgbb-Tcaur-Che stions.htmlTo learn more about the COVID-19 vaccine, we invite you to visit the [employer] website for a list of frequently asked questions. [email or web address]://[email or web address]/assets/Dwknshkv-zat-Duqdaeie/udtrf-Flcpthu-Ixleeynqou _Asked-Questions.pdf [employer] Patient Portal Access Instructions: Stay connected with your healthcare team and access your personal medical information anytime with the [employer] Patient Portal.If you would like a full copy of your medical records, please contact the [facility] Medical Records Department, Monday through Monday between 8a.m. and 4:30p.m. Please follow the directions below to access the portal: 1.Access the email account you provided upon registration to the [facility].2.Look for an invitation email from [facility].3.Open the email and access the invitation link: Accept Invitation to [employer]4.Fill in the required perez to create your account. Sign into [email or web address] with your username and password that you [...] you will allow to register on the [employer] Patient Portal for access to your information. You can also access the [employer] Patient Portal on the [employer] [place]. Simply click on Health Records under [employer] and then click on the [employer] logo. HOW TO SAFELY DISPOSE OF PRESCRIPTION [...] Call your local pharmacy or go to http://[email or web address] to find one close to you.3.Make use of household items: Use cat litter or old coffee grounds to dispose medications if other options arenot available. Mix your drugs with these household products, seal them in an airtight container andthrow it into the garbage. Call [facility]: [phone] to be sure your drugs can be [...] am aware that I should contactmy doctor. Patient/Leader Assembler Signature: Date/Time: Relationship to Patient: Witness Name/Signature: Date/Time: [facility] [id number] History and physical note Date of Service [...] L3-4 done about 20 years ago in [place]. Says he did well for several years [...] take a baby aspirin is followed by [place] cardiology but says he has not had [...] or heat. Most recent MRI was at [facility] in December. Kirit Garibay [facility] 02/11/2022 8:39 EDT General Review of Systems Grid Fever : No Weight Gain : No Weight Loss : No Kirit Garibay [facility] 02/11/2022 8:39 EDT Head and Neck Review of Systems Grid Blurred Vision : No Difficulty swallowing : No Hearing Loss : No Hoarseness : No Loss of Vision : No Sore Throat : No Kirit Garibay [facility] 02/11/2022 8:39 EDT Respiratory/Lungs Review of Systems Grid Coughing : No Shortness of Breath : Yes Kirit Garibay [facility] 02/11/2022 8:39 EDT Skeletal Review of Systems Grid Joints Swelling/Stiffness : Yes Pain in Joint(s) : Yes Kirit Garibay [facility] 02/11/2022 8:39 EDT Heart/Vascular Review of Systems Grid Chest pain/tightness : No Irregular Heartbeat : Yes Rapid Heart Beat : No Kirit Garibay [facility] 02/11/2022 8:39 EDT Neuro Review of Systems [...] Trouble with speech : No Kirit Garibay [facility] 02/11/2022 8:39 EDT Heart/Vascular ROS Comments : hx of heart attack in 2012 Kirit Garibay [facility] 02/11/2022 8:39 EDT Stomach/Bowel Review of Systems Grid Constipation : No Diarrhea : No Nausea : No Vomiting : No Hannah Garibaysánchez Blue MA 02/11/2022 8:39 EDT Urinary Review of Systems Grid Nocturia : No Urinary Incontinence : No Urinary Urgency : No Kirit Garibay [facility] 02/11/2022 8:39 EDT Skin Review of Systems Grid Itching : No Rash : No Sores : No Kirit Garibay [facility] 02/11/2022 8:39 EDT Hematology Review of Systems Grid Bleeds Easily : Yes Blood Clots : No Low Blood Count : No Kirit Garibay [facility] 02/11/2022 8:39 EDT Sleep Review of Systems Grid Daytime Sleepiness : No Fatigue : No Insomnia : Yes Snoring : Yes Kirit Garibay [facility] 02/11/2022 8:39 EDT Hematology ROS Comments : takes ASA d/t blockages; pt goes to [place] [facility] Sleep ROS Comments : pt uses bipap machine Kirit Garibay [facility] 02/11/2022 8:39 EDT Endocrine Review of Systems Grid High Blood Sugar : No Low Blood Sugar : No Kirit Garibay [facility] 02/11/2022 8:39 EDT Psychiatric Review of Systems Grid Anxious : No Kirit Garibay [facility] 02/11/2022 8:39 EDT Primary Pain Pain Symptoms [...] ligamentum flavum hypertrophy. L4-L5: There is a rpxh-hg-uhmihugu posterior disc bulge with a mild superimposed central extrusion. There is mild right facet and ligamentum flavum hypertrophy. There is mild left neural foraminal narrowing. L4-L5: There is a mzix-jn-jmdmjgkh posterior disc bulge/pseudo bulge. There is mild [...] AM [2] Social History Alcohol Home/Environment Primary Rheostat Assembler: self., 06/24/2019 Nutrition/Health Caffeine intake amount: none., [...] Order PM Inj Spine L/S With Imaging [id number] XR Spine Lumbar AP/LAT/FLEX/EXT 2. Spondylolisthesis of lumbar region Grade 1 L4-5 spondylolisthesis grade 2 L5-S1 based on MRI report. To evaluate for any segmental instability we will obtain dynamic x-rays of lumbar spine flexion-extension views order given today. Ordered: Ambulatory Office Communication Order PM Inj Spine L/S With Imaging [id number] XR Spine Lumbar AP/LAT/FLEX/EXT 3. Lumbar stenosis with neurogenic claudication Patient does have radiculopathy pain left leg. I talked to him about epidural steroid injection versus nerve block as he has history of L3-4 laminectomy would recommend a left paramedian epidural steroid injection at the left L2-3 level. Patient does take a baby aspirin recommended by [place] [facility] so we will petition them for [...] Order PM Inj Spine L/S With Imaging [id number] XR Spine Lumbar AP/LAT/FLEX/EXT 4. Morbid obesity Ordered: Ambulatory Office Communication Order PM Inj Spine L/S With Imaging [id number] XR Spine Lumbar AP/LAT/FLEX/EXT 5. Coronary artery disease Unclear cardiac history. Says he does not have coronary disease but does take an antiplatelet drug.Will simply ask [place] cardiology if he can stop aspirin for 7 days before procedure. Ordered: PM Inj Spine L/S With Imaging [id number] XR Spine Lumbar AP/LAT/FLEX/EXT 6. Lumbar radiculopathy [...] C screening test Nephrolithiasis Neurogenic claudication [place] (myocardial infarction) Osteoarthritis Previous back surgery PSA [...] RICKEY HUNG MD on 04/06/2022 07:55 AM [facility] [id number] Evaluation + Plan note Future Scheduled Tests Laboratory* Uric Acid 04/23/21 * Complete Blood Count 04/23/21 * Complete Metabolic Panel 04/23/21 [facility] Discharge summary Author Dr. Singh [facility] October 16, 2022 8:00am Note Date/Time October 16, 2022 6:52 am [facility] Medical Records Department [address] [place] [address] Emergency Department Summary 10/16/22 MR#: [id number] Acct: [id number] Name: KRYSTYNA PADGETT Rep #:[id number] : [...] other surgeries, and it was not recent. [facility] Medical History Atherosclerotic heart disease of [place] coronary artery without angina pectoris Bilateral kidney [...] 74.0 H Lymph % (Auto) 14.9 L [place] % (Auto) 8.9 Eos % (Auto) 1.6 [...] Clarity Clear Urine pH 5.0 Ur Specific [place] 1.020 Urine Protein 15 H Urine Glucose [...] your Primary Care Provider. Call [facility] ([phone]) or report to the closest Emergency Room. Call 911 if necessary. 10/16/22 0800 <Electronically signed by Aditya Singh MD> Cosigner Signature (if applicable): CC: Dr. Manasa Zendejas DO ~ Signed [facility] Work Phone: Evaluation + Plan note Future Appointments Appointment Date:12/22/2021 09:30:00 AM Scheduled Provider:MANASA ZENDEJAS DO Location:[facility] Appointment Type: OV Follow Up Future Scheduled Tests Laboratory* Uric Acid 04/23/21 * Complete Blood Count 04/23/21 * Complete Metabolic Panel 04/23/21 [facility] Evaluation + Plan note Future Appointments Appointment Date:02/23/2022 09:00:00 AM Scheduled Provider:CALEB AJ MD Location:[facility] Appointment Type:NS INSTALLATION HELPER Future Scheduled Tests Laboratory* Uric Acid 04/23/21 * Complete Blood Count 04/23/21 * Complete Metabolic Panel 04/23/21 [facility] Evaluation + Plan note Future Appointments Appointment Date:03/16/2022 10:00:00 AM Scheduled Provider: Location:[facility] [place] Appointment Type:PM Inj Spine L/S With Imaging Future Scheduled Tests Laboratory* Uric Acid 04/23/21 * Complete Blood Count 04/23/21 * Complete Metabolic Panel 04/23/21 [facility] Evaluation + Plan note Future Appointments Appointment Date:05/27/2022 07:00:00 AM Scheduled Provider:RICKEY HUNG MD Location:PM Office Appointment Type:PM OV Future Scheduled Tests Laboratory* Uric Acid 04/23/21 * Complete Blood Count 04/23/21 * Complete Metabolic Panel 04/23/21 [facility] Evaluation + Plan note Future Appointments Appointment Date:11/16/2022 09:30:00 AM Scheduled Provider:MANASA ZENDEJAS DO Location:[facility] Appointment Type:PC OV Future Scheduled Tests Radiology* NM Myocardial Spect Rest/Stress 05/19/22 [facility] Evaluation + Plan note Future Appointments Appointment Date:10/21/2022 08:00:00 AM Scheduled Provider: Location:Heart Lab Appointment Type:EP Ablation RF-CARTO Appointment Date:11/16/2022 09:30:00 AM Scheduled Provider:MANASA ZENDEJAS DO Location:[facility] Appointment Type:PC OV Appointment Date:11/25/2022 12:00:00 PM Scheduled Provider:RICKEY HUNG MD Location:PM Office Appointment Type:PM OV Appointment Date:12/21/2022 11:45:00 AM Scheduled Provider: Location:[facility] Appointment Type:CV OV [facility] evaluation + Plan note Future Appointments Appointment Date:11/10/2022 09:00:00 AM Scheduled Provider: Location:Heart Lab Appointment Type:EP Ablation RF-CARTO Appointment Date:11/16/2022 09:30:00 AM Scheduled Provider:MANASA ZENDEJAS DO Location:[facility] Appointment Type:PC OV Appointment Date:11/25/2022 12:00:00 PM Scheduled Provider:RICKEY HUNG MD Location:PM Office Appointment Type:PM OV Appointment Date:12/21/2022 11:45:00 AM Scheduled Provider: Location:[facility] Appointment Type:CV OV Appointment Date:01/13/2023 11:15:00 AM Scheduled Provider: Location:[facility] Appointment Type:CV OV [facility] Evaluation + Plan note Future Appointments Appointment Date:02/24/2023 10:30:00 AM Scheduled Provider: Location:[facility] Appointment Type:CT Chest w/ Contrast Appointment Date:03/15/2023 08:30:00 AM Scheduled Provider: Location:[facility] [place] Appointment Type:PM Inj Spine L/S With Imaging Appointment Date:08/11/2023 10:00:00 AM Scheduled Provider:MANASA ZENDEJAS DO Location:[facility] Appointment Type:PC OV Appointment Date:01/15/2024 [...] 02/08/23 Radiology* CT Thorax w/ Contrast 02/24/23 [facility] Evaluation + Plan note Future Appointments Appointment Date:03/15/2023 08:30:00 AM Scheduled Provider: Location:[facility] [place] Appointment Type:PM Inj Spine L/S With Imaging Appointment Date:08/11/2023 10:00:00 AM Scheduled Provider:MANASA ZENDEJAS DO Location:[facility] Appointment Type:PC OV Appointment Date:01/15/2024 10:30:00 AM Scheduled Provider: Location:[facility] Appointment Type:CV OV Future Scheduled Tests Laboratory* Prostate Specific Antigen 02/08/23 * Uric Acid 02/08/23 * A1C Hemoglobin 02/08/23 * Complete Blood Count 02/08/23 * Lipid Profile 02/08/23 * Hepatitis C Antibody IgG 02/08/23 * Albumin/Creatinine Ratio, Random Urine 02/08/23 * Complete Metabolic Panel 02/08/23 [facility] Evaluation + Plan note Future Appointments Appointment Date:06/13/2023 09:00:00 AM Scheduled Provider:GOKUL JANG Location:PM Office Appointment Type:PM OV SUHAIL [facility] Appointment Date:08/11/2023 10:00:00 AM Scheduled Provider:MANASA ZENDEJAS DO Location:[facility] Appointment Type:PC OV Appointment Date:01/15/2024 [...] 02/08/23 Radiology* CT Thorax w/o Contrast 07/26/23 [facility] Evaluation + Plan note Future Appointments Appointment Date:07/27/2023 09:30:00 AM Scheduled Provider: Location:[facility] [place] Appointment Type:PM Inj Spine L/S With Imaging Appointment Date:08/11/2023 10:00:00 AM Scheduled Provider:MANASA ZENDEJAS DO Location:[facility] Appointment Type:PC OV Appointment Date:01/15/2024 10:30:00 AM Scheduled Provider: Location[facility] Appointment Type:CV OV Future Scheduled Tests Laboratory* Prostate Specific Antigen 02/08/23 * Uric Acid 02/08/23 * A1C Hemoglobin 02/08/23 * Complete Blood Count 02/08/23 * Lipid Profile 02/08/23 * Hepatitis C Antibody IgG 02/08/23 * Albumin/Creatinine Ratio, Random Urine 02/08/23 * Complete Metabolic Panel 02/08/23 Radiology* CT Thorax w/o Contrast 07/26/23 [facility] Evaluation + Plan note Future Appointments Appointment Date:08/11/2023 10:00:00 AM Scheduled Provider:MANASA ZENDEJAS DO [facility] Type:PC OV Appointment Date:09/25/2023 07:20:00 [...] 02/08/23 Radiology* CT Thorax w/o Contrast 07/26/23 [facility] Evaluation + Plan note Future Appointments Appointment Date:09/25/2023 07:20:00 AM Scheduled Provider:RICKEY HUNG MD Location:PM Office Appointment Type:PM OV Appointment Date:01/15/2024 10:30:00 AM Scheduled Provider: Location:[facility] Appointment Type:CV OV Appointment Date:02/09/2024 08:00:00 AM Scheduled Provider:MANASA ZENDEJAS DO Location:[facility] Appointment Type:PC Wellness Medicare Future Scheduled Tests Laboratory* Prostate Specific Antigen 02/08/23 * Uric Acid 02/08/23 * A1C Hemoglobin 02/08/23 * Complete Blood Count 02/08/23 * Lipid Profile 02/08/23 * Hepatitis C Antibody IgG 02/08/23 * Albumin/Creatinine Ratio, Random Urine 02/08/23 * Complete Metabolic Panel 02/08/23 [facility] Evaluation + Plan note Future Appointments Appointment Date:12/26/2023 11:30:00 AM Scheduled Provider:RICKEY HUNG MD Location:PM Office Appointment Type:PM OV Appointment Date:01/15/2024 10:30:00 AM Scheduled Provider: Location:[facility] Appointment Type:CV OV Appointment Date:02/09/2024 09:00:00 AM Scheduled Provider:MANASA ZENDEJAS DO Location:[facility] Appointment Type:PC Wellness Medicare Future Scheduled Tests Laboratory* Prostate Specific Antigen 02/08/23 * Uric Acid 02/08/23 * A1C Hemoglobin 02/08/23 * Complete Blood Count 02/08/23 * Lipid Profile 02/08/23 * Hepatitis C Antibody IgG 02/08/23 * Albumin/Creatinine Ratio, Random Urine 02/08/23 * Complete Metabolic Panel 02/08/23 Radiology* CT Angiography Chest w/ Contrast 08/16/24 [facility] Management Evaluation + Plan note Future Appointments Appointment Date:02/09/2024 09:00:00 AM Scheduled Provider:MANASA ZENDEJAS DO Location:[facility] Appointment Type:PC Wellness Medicare Appointment [...] Radiology* CT Angiography Chest w/ Contrast 08/16/24 [facility] Pain Management Evaluation + Plan note Future Appointments Appointment Date:08/14/2024 10:00:00 AM Scheduled Provider:MANASA ZENDEJAS DO Location:[facility] Appointment Type:PC OV Appointment Date:01/13/2025 [...] Radiology* CT Angiography Chest w/ Contrast 08/16/24 [facility] Pain Management Evaluation + Plan note Future Appointments Appointment Date:08/14/2024 10:00:00 AM Scheduled Provider:MANASA ZENDEJAS DO Location:[facility] Appointment Type:PC OV Appointment Date:09/11/2024 [...] Radiology* CT Angiography Chest w/ Contrast 08/16/24 [facility] Pain Management Evaluation + Plan note Future Appointments Appointment Date:09/11/2024 08:15:00 AM Scheduled Provider:ADOLFO SANCHES Location:PM Office Appointment Type:PM OV [facility] Appointment Date:01/13/2025 10:15:00 AM Scheduled Provider:MIRI OLIVAREZ Location:[facility] Appointment Type:CV OV Appointment Date:02/12/2025 08:30:00 AM Scheduled Provider:MANASA ZENDEJAS DO Location:[facility] Appointment Type: Wellness Medicare Future Scheduled Tests Laboratory* Albumin/Creatinine Ratio, Random Urine 08/14/24 Radiology* CT Angiography Chest w/ Contrast 08/16/24 [facility] Evaluation + Plan note Future Appointments Appointment Date:11/07/2024 10:30:00 AM Scheduled Provider:JESUS LAZAR Location:PM Office Appointment Type:PM OV WJW Appointment Date:01/13/2025 10:15:00 AM Scheduled Provider:MIRI OLIVAREZ [facility] Appointment Type:CV OV Appointment Date:02/12/2025 08:30:00 AM Scheduled Provider:MANASA ZENDEJAS DO Location:[facility] Appointment Type:PC Wellness Medicare Future Scheduled Tests Laboratory* Albumin/Creatinine Ratio, Random Urine 08/14/24 Radiology* CT Angiography Chest w/ Contrast 08/16/24 [facility] Evaluation + Plan note Future Appointments Appointment Date:11/20/2024 10:30:00 AM Scheduled Provider:MANASA ZENDEJAS DO Location:[facility] Appointment Type:PC OV Appointment Date:01/13/2025 10:15:00 AM Scheduled Provider:MIRI OLIVAREZ Location:[facility] Appointment Type:CV OV Appointment Date:02/12/2025 08:30:00 AM Scheduled Provider:MANASA ZENDEJAS DO Location:[facility] Appointment Type:PC Wellness Medicare Future Scheduled Tests Laboratory* Albumin/Creatinine Ratio, Random Urine 08/14/24 [facility] Pain Management Evaluation + Plan note Future Appointments Appointment Date:01/13/2025 10:15:00 AM Scheduled Provider:MIRI OLIVAREZ Location:[facility] Appointment Type:CV OV Appointment Date:02/12/2025 08:30:00 AM Scheduled Provider:MANASA ZENDEJAS DO Location:[facility] Appointment Type:PC Wellness Medicare Appointment Date:03/17/2025 11:50:00 AM Scheduled Provider:RICKEY HUNG MD Location:PM Office Appointment Type:PM OV Future Scheduled Tests Laboratory* Albumin/Creatinine Ratio, Random Urine 08/14/24 [facility] Management Evaluation note* Diagnosis Onset Date Resolution Status MARIELENA (obstructive sleep apnea) acute Obesity chronic MARIELENA (obstructive sleep apnea) acute Obesity [facility] Work Phone: Evaluation note* Diagnosis Onset Date Resolution Status MARIELENA (obstructive sleep apnea) acute Obesity chronic Dyspnea acute Atherosclerotic heart diseas e of [place] coronary artery without angina pectoris chronic HLD (hyperlipidemia) chronic Hypertension chronic PVCs (premature ventricular contractions) [facility] Work Phone: Evaluation note* Diagnosis Onset Date Resolution Status Atrial fibrillation acute Atherosclerotic heart diseas e of [place] coronary artery without angina pectoris chronic Essential hypertension chron ic Fatigue chronic HLD (hyperlipidemia) chronic PVCs (premature ventricular contractions) chronic Sinus bradycardia chronic Atrial fibrillation acute Atherosclerotic heart diseas e of [place] coronary artery without angina pectoris chronic Essential hypertension chron ic Fatigue chronic HLD (hyperlipidemia) chronic PVCs (premature ventricular contractions) chronic Sinus bradycardia chronic [facility] Work Phone: Evaluation note* Diagnosis Onset Date Resolution Status Atherosclerotic heart diseas e of [place] coronary artery without angina pectoris chronic Essential hypertension chron ic Fatigue chronic HLD (hyperlipidemia) chronic PVCs (premature ventricular contractions) chronic Sinus bradycardia chronic Atrial fibrillation resolved [facility] Work Phone: Hospital course Narrative No data available for this section [facility] Hospital Discharge instructions No data available for this section [facility] Hospital Discharge instructions Additional Instructions Please return to the ER if he have any further concerns or worsening of symptoms [facility] Work Phone: Note* Holger Madison RN: SIGN, VERIFY Event Display: Ablation RF-CARTO - CV [facility] Not* Darinel Bradley E: PERFORM Event Display: Consent to Procedure Scanned Authored Date: [id number] [facility] progress note No data available for this section [facility] Management reason for referral (narrative)No reason for referral [facility] Work Phone: Chief Complaint and Reason for [...] apnea) Obesity Dyspnea Atherosclerotic heart disease of [place] coronary artery without angina pectoris HLD (hyperlipidemia) Hypertension PVCs (premature ventricular contractions) Chief Complaint 30 DAY MONITOR Amb Documentation 1 Y FU EKG per PFM 6 wk FU E ORDERS back and abd pain Reason for Visit Atrial fibrillation Atherosclerotic heart disease of [place] coronary artery without angina pectoris Essential hypertension Fatigue HLD (hyperlipidemia) PVCs (premature ventricular contractions) Sinus bradycardia Atrial fibrillation Atherosclerotic heart disease of [place] coronary artery without angina pectoris Essential hypertension Fatigue HLD (hyperlipidemia) PVCs (premature ventricular contractions) Sinus bradycardia Chief Complaint 4-6 MO F/U Amb Documentation Reason for Visit Atherosclerotic hear t disease of [place] coronary artery without angina pectoris Essential hypertension [...] Will No May 16 10:21pm Power of Oceanographer Assistant No May 16, 2022 10:21pm Advance Directive Response Recorded Date/ Time Advance Directives No August 4:00pm Living Will No October 16, 2022 6:39am Power of Oceanographer Assistant No October 16 6:39am Advance Directive Response Recorded Date/ Time Living Will No October 16, 2022 6:39am Do you have a Healthcare Power of Oceanographer Assistant? No October 16, 2022 6:39am Living Will No July 02, 024 11:14am Do you have a Healthcare Power of Oceanographer Assistant? No July 02, 2024 11:14am Advance Directives No August 4:00pm Advance Directive Response Recorded Date/ Time Living Will No July 02, 2 024 11:14am Do you have a Healthcare Power of Oceanographer Assistant? No July 02, 2024 11:14am Advance Directives [...] Provider, Referrin g Provider Active Anna Jones INSTALLATION HELPER, INSTALLATION HELPER-C Attending Provider Active Team Status: Active Member Role Status Dates Dr. Manasa Zendejas DO Primary Care Provider Active Dr. Mark Grajeda MD Attending Provider Active Melissa Up PA, PA Referring Provider Active Team Status: Inactive Member Role Status Dates Dr. Manasa Zendejas DO Primary Care Provider Active Anna Jones INSTALLATION HELPER, INSTALLATION HELPER-C Attending Provider, Referring Pro vider Active Team Status: Inactive Member Role Status Dates Dr. Manasa Zendejas DO Primary Care Provider Active Dr. Aditya Singh MD Emergency Provider Active Team Status: Active Member Role Status Dates Dr. Manasa Zendejas DO Primary Care Provider Active Anna Jones INSTALLATION HELPER, INSTALLATION HELPER-C Attending Provider Active Team Status: Inactive Member [...] 2024 End: June 21, 2024 Cathy Ruiz INSTALLATION HELPER, INSTALLATION HELPER-C Attending Provider Active Start: June 21, 2024 [...] 2024 End: October 07, 2024 Cathy Ruiz INSTALLATION HELPER, INSTALLATION HELPER-C Attending Provider Active Start: October 07, 2024 End: October 07, 2024 Team Status: Inactive Member Role Status Dates Dr. Manasa Zendejas DO Primary Care Provider Active Start: October 07, 2024 End: October 07, 2024 Cathy Ruiz INSTALLATION HELPER, INSTALLATION HELPER-C Attending Provider Active Start: October 07, 2024 End: October 07, 2024 Cathy Ruiz INSTALLATION HELPER, INSTALLATION HELPER-C Referring Provider Active Start: October 07, 2024 End: October 07, 2024 Team Status: Active Member Role Status Dates Dr. Manasa Zendejas DO Primary Care Provider Active Team Status: Inactive Member Role Status Dates Dr. Manasa Zendejas DO Primary Care Provider Active Start: October 15, 2024 End: October 15, 2024 Cathy Ruiz INSTALLATION HELPER, INSTALLATION HELPER-C Attending Provider Active Start: October 15, 2024 End: October 15, 2024 Cathy Ruiz INSTALLATION HELPER, INSTALLATION HELPER-C Referring Provider Active Start: October 15, 2024 End: October 15, 2024 Team Status: Inactive Member Role Status Dates Dr. Manasa Zendejas DO Primary Care Provider Active Start: October 25, 2024 End: October 25, 2024 Dr. Manasa Zendejas DO Referring Provider Active Start: October 25, 2024 End: October 25, 2024 Cathy Ruiz INSTALLATION HELPER, INSTALLATION HELPER-C Attending Provider Active Start: October 25, 2024 End: October 25, 2024 Team Status: Inactive Member Role Status Dates Dr. Manasa Zendejas DO Primary Care Provider Active Start: October 30, 2024 End: October 30, 2024 Cathy Ruiz INSTALLATION HELPER, INSTALLATION HELPER-C Attending Provider Active Start: October 30, 2024 End: October 30, 2024 Cathy Ruiz INSTALLATION HELPER, INSTALLATION HELPER-C Referring Provider Active Start: October 30, 2024 End: October 30, 2024 Team Status: Inactive Member Role Status Dates Dr. Manasa Zendejas DO Primary Care Provider Active Start: December 19, 2024 End: December 19, 2024 Cathy Ruiz INSTALLATION HELPER, INSTALLATION HELPER-C Attending Provider Active Start: December 19, 2024 End: December 19, 2024 Cathy Ruiz INSTALLATION HELPER, INSTALLATION HELPER-C Referring Provider Active Start: December 19, 2024 End: December 19, 2024 Team Status: Active Member Role Status Dates Dr. Manasa Zendejas DO Primary Care Provider Active Start: December 23, 2024 Cathy Ruiz INSTALLATION HELPER, INSTALLATION HELPER-C Referring Provider Active Start: December 23, 2024 Cathy Ruiz INSTALLATION HELPER, INSTALLATION HELPER-C Other Provider Active Start: December 23, 2024 [...] 2025 End: January 02, 2025 Cathy Ruiz INSTALLATION HELPER, INSTALLATION HELPER-C Attending Provider Active Start: January 02, 2025 [...] 2024 End: October 07, 2024 Cathy Ruiz INSTALLATION HELPER, INSTALLATION HELPER-C Attending Provider Active Start: October 07, 2024 End: October 07, 2024 Team Status: Inactive Member Role/Relationship Status Dates Dr. Mnaasa Zendejas DO Primary Care Provider Active Start: October 07, 2024 End: October 07, 2024 Cathy Ruiz INSTALLATION HELPER, INSTALLATION HELPER-C Attending Provider Active Start: October 07, 2024 End: October 07, 2024 Cathy Ruiz INSTALLATION HELPER, INSTALLATION HELPER-C Referring Provider Active Start: October 07, 2024 End: October 07, 2024 Team Status: Inactive Member Role/Relationship Status Dates Dr. Manasa Zendejas DO Primary Care Provider Active Start: October 15, 2024 End: October 15, 2024 Cathy Ruiz INSTALLATION HELPER, INSTALLATION HELPER-C Attending Provider Active Start: October 15, 2024 End: October 15, 2024 Cathy Ruiz INSTALLATION HELPER, INSTALLATION HELPER-C Referring Provider Active Start: October 15, 2024 End: October 15, 2024 Team Status: Inactive Member Role/Relationship Status Dates Dr. Manasa Zendejas DO Primary Care Provider Active Start: October 25, 2024 End: October 25, 2024 Dr. Manasa Zendejas DO Referring Provider Active Start: October 25, 2024 End: October 25, 2024 Cathy Ruiz INSTALLATION HELPER, INSTALLATION HELPER-C Attending Provider Active Start: October 25, 2024 End: October 25, 2024 Team Status: Inactive Member Role/Relationship Status Dates Dr. Manasa Zendejas DO Primary Care Provider Active Start: October 30, 2024 End: October 30, 2024 Cathy Ruiz INSTALLATION HELPER, INSTALLATION HELPER-C Attending Provider Active Start: October 30, 2024 End: October 30, 2024 Cathy Ruiz INSTALLATION HELPER, INSTALLATION HELPER-C Referring Provider Active Start: October 30, 2024 End: October 30, 2024 Team Status: Inactive Member Role/Relationship Status Dates Dr. Manasa Zendejas DO Primary Care Provider Active Start: December 19, 2024 End: December 19, 2024 Cathy Ruiz INSTALLATION HELPER, INSTALLATION HELPER-C Attending Provider Active Start: December 19, 2024 End: December 19, 2024 Cathy Ruiz INSTALLATION HELPER, INSTALLATION HELPER-C Referring Provider Active Start: December 19, 2024 End: December 19, 2024 Team Status: Active Member Role/Relationship Status Dates Dr. Manasa Zendejas DO Primary Care Provider Active Start: December 23, 2024 Cathy Ruiz INSTALLATION HELPER, INSTALLATION HELPER-C Referring Provider Active Start: December 23, 2024 Cathy Ruiz INSTALLATION HELPER, INSTALLATION HELPER-C Other Provider Active Start: December 23, 2024 [...] 2025 End: January 02, 2025 Cathy Ruiz INSTALLATION HELPER, INSTALLATION HELPER-C Attending Provider Active Start: January 02, 2025 [...] Personnel Name: MANASA ZENDEJAS DO Address: Address: [address] [place] [address]- Care Team Personnel Name: MANASA ZENDEJAS DO Position: P4 Physician - Primary Care Med Service: Active Provider Member Role: Primary Care Physician Address: Address: [address] [place] [address]- Care Team Related Persons Name: ANNA PADGETT Care Team Personnel Name: MANASA ZENDEJAS DO Position: P4 Physician - Primary Care Med Service: Active Provider Member Role: Primary Care Physician Address: Address: [address] [place] [address] Care Team Related Persons Name: ANNA PDAGETT Care Team Personnel Name: MANASA ZENDEJAS DO Position: P4 Physician - Primary Care Med Service: Active Provider Member Role: Primary Care Physician Address: Address: [address] [place] [address] Care Team Related Persons Name: ANNA PADGETT Care Team Personnel Name: MANASA ZENDEJAS DO Position: P4 Physician - Primary Care Med Service: Active Provider Member Role: Primary Care Physician Address: Address: [address] [place] [address] Care Team Related Persons Name: ANNA PADGETT Care Team Personnel Name: MANASA ZENDEJAS DO Position: P4 Physician - Primary Care Member Role: Primary Care Physician Address: Address: [address] [place] [address] Care Team Related Persons Name: ANNA PADGETT Goals (unrecognized section and content) Goals may be documented in a n alternate section (unrecognized sect ion and content) No Status Records FoundNo Status Records FoundNo Status Records FoundNo Status Records Found INFORMATION SOURCE (unrecogn ized section and content) DATE CREATED AUTHOR 02/01/2024 [facility] ([place]) DATE CREATED AUTHOR AUTHOR'S ORGANIZ ATION 11/24/2024 [facility] DATE CREATED AUTHOR AUTHOR'S ORGANIZ ATION 01/12/[address] [facility] DATE CREATED AUTHOR AUTHOR'S ORGANIZ ATION 01/12/2025 [facility] FOR RECORDS PERTAINING TO PATIENTS WHO ARE [...] BE BASED ON THE PRIMARY CLINICAL RECORDS. [facility]. provides no warranty or guarantee of the accuracy or completeness of information in this document.
== END | disposition home or self-care (01) ==
LOC: CVS 06:49
PROVIDERS: PCP Student in an Organized Health Care Education/Training Program; Referring Provider Internal Medicine Cardiovascular Disease; Visit Provider Internal Medicine Cardiovascular Disease
DX: R06.00 Dyspnea, unspecified (principal)
CPT/HCPCS: 93306

== ENCOUNTER → 2025-01-23 | Outpatient (CLI) | payer MEDICARE, SELFPAY | END | disposition home or self-care (01) | LOC: SL 19:39 | PROVIDERS: PCP Student in an Organized Health Care Education/Training Program; Referring Provider Nurse Practitioner Acute Care; Visit Provider Nurse Practitioner Acute Care | DX: G47.31 Primary central sleep apnea (principal) | CPT/HCPCS: 95811 ==

== ENCOUNTER → 2025-02-04 | Outpatient (CLI) | payer MEDICARE, SELFPAY | END | disposition home or self-care (01) | LOC: SL 16:54 | PROVIDERS: PCP Student in an Organized Health Care Education/Training Program; Referring Provider Nurse Practitioner Acute Care; Visit Provider Nurse Practitioner Acute Care | DX: Z46.89 Encounter for fitting and adjustment of other specified devices (principal) ==

== ENCOUNTER → 2025-02-10 | Outpatient (CLI) | payer MEDICARE, SELFPAY ==
[2025-02-10 10:07] LABS: Anion Gap 13 (5-15); BUN 26 mg/dL (4-19); BUN/Creat Ratio 27.2 RATIO (10-20); Calcium,Total 9.7 mg/dL (7.6-11.0); Carbon Dioxide 28.5 mmol/L (21.0-32.0); Chloride 99 mmol/L (98-108); Glucose 94 mg/dL (70-99); Potassium 3.9 mmol/L (3.3-5.1)
== END | disposition home or self-care (01) ==
LOC: LAB 09:15
PROVIDERS: PCP Student in an Organized Health Care Education/Training Program; Referring Provider Nurse Practitioner Family; Visit Provider Nurse Practitioner Family
DX: I42.8 Other cardiomyopathies (principal); I25.10 Atherosclerotic heart disease of native coronary artery without angina pectoris; Z86.79 Personal history of other diseases of the circulatory system
CPT/HCPCS: 36415; 80048

== ENCOUNTER → 2025-05-28 | Outpatient (CLI) | payer MEDICARE, SELFPAY ==
--- NOTE | 2025-05-28 13:22 | ECHOLC_ITS ---
Reason For Study Reason For Study: RE-EVALUATE EF Procedure This was a limited 2D transthoracic echocardiogram. The study was technically difficult. Contrast injection was performed. Exam performed in department. Left Ventricle Normal size and thickness. Posterior, inferior and apical hypokinesis. Estimated LVEF 40 to 45%. Right Ventricle Normal right ventricle. Atria The left atrium is mildly enlarged. Normal right atrium. Mitral Valve Trivial mitral valve insufficiency. Tricuspid Valve Normal tricuspid valve. Aortic Valve Trisinus/trileaflet aortic valve. Pulmonic Valve The pulmonic valve is not well visualized. Great Vessels Normal sized aortic root. Pericardium/Pleural No pericardial effusion. Medication 22 gauge I.V. with prn adaptor inserted into right arm. Diluted definity 2ml given slow IV push to enhance endocardial definition. MMode/2D Measurements & Calculations LVIDd: 5.5 cm IVSd: 0.86 cm LAV(MOD- bp): 64.8 ml LVIDs: 3.8 cm LVPWd: 0.94 cm FS: 29.5 % LAV(MOD- bp) Indexed: 28.6 ml/m2 LAV(MOD- sp2): 57.6 ml LAV(MOD- sp4): 67.3 ml SV(MOD- sp4): 83.2 ml LVAd ap4: 35.2 cm2 LVAd ap2: 32.2 cm2 LVLd ap4: 7.8 cm LVLd ap2: 7.4 cm SI(MOD- sp4): 36.7 ml/m2 EDV(MOD-sp4): 130.3 ml EDV(MOD-sp2): 116.9 ml EDV(sp4-el): 135.6 ml EDV(sp2-el): 118.5 ml LVAs ap4: 20.4 cm2 LVAs ap2: 19.4 cm2 LVLs ap4: 7.4 cm LVLs ap2: 6.9 cm ESV(MOD-sp4): 47.1 ml ESV(MOD-sp2): 45.0 ml ESV(sp4-el): 47.6 ml ESV(sp2-el): 46.0 ml EF(MOD-sp4): 63.8 % EF(MOD-sp2): 61.5 % EF(sp4-el): 64.9 % SV(MOD-sp2): 71.8 ml SV(sp4-el): 88.0 ml LA A4 area: 22.6 cm2 SI(MOD-sp2): 31.7 ml/m2 RA A4 area: 14.9 cm2 ECHO/Echo Limited w/Contrast Interpretation Summary Posterior, inferior and apical hypokinesis. Estimated LVEF 40-45%. The left atrium is mildly enlarged. This was a limited echocardiogram. The study was technically difficult. Ordering Physician: Emil Jones Referring Physician: Aly Cornejo Performed By: Emmett Nelson RDCS
== END | disposition home or self-care (01) ==
LOC: CVS 13:22
PROVIDERS: PCP Student in an Organized Health Care Education/Training Program; Referring Provider Nurse Practitioner Family; Visit Provider Nurse Practitioner Family
DX: I42.8 Other cardiomyopathies (principal)
CPT/HCPCS: 93308; Q9957; A4216; C8924